=== PATIENT | female | born 1955 | race Caucasian/White ===

== ENCOUNTER 2021-07-24 21:11 | Inpatient (IN) ==
[2021-07-24] MEDS ORDERED: ALBUT/IPRATROP 3MG/0.5MG NEB 3 ML VIAL INH STA (21:31)
--- NOTE | 2021-07-24 21:38 | Emergency Department Note ---
Impression & Plan Hypoxia, SOB (shortness of breath), Hypothermia, Wheezing, Pneumonia, Influenza A ED Provider Note NAME: GARRICK HERNANDEZ AGE: 66 SEX: F : 1955 ARRIVES VIA: Ambulance INFORMANT: [Patient][ems] ED PROVIDER(S): [Cisco Osuna MD] CHIEF COMPLAINT: Short of breath HISTORY OF PRESENT ILLNESS: The patient is a 66-year-old female with lung disease and MS. She was brought by ambulance for an O2 saturation of 87%. She responded well to supplemental O2. The patient has been feeling short of breath for several days. She has had a slight cough. She felt much worse today. She has some occasional chest pain, nothing persisting. She has not noticed a fever. There has been no vomiting or diarrhea. The patient was diagnosed with influenza and pneumonia as an out patient. She states that she is on an antibiotic but does not remember the name. Patient does not use oxygen at home. She does have a nebulizer though. She states that she barely walks on her own as the MS has really taken her leg strength. She is cared for primarily by her . The patient is vaccinated for COVID-19 x3, she has had her influenza vaccination. REVIEW OF SYSTEMS: See HPI for pertinent positives and negatives. A total of ten systems were rev iewed and were otherwise negative. PMHx/PSHx: See Below SOCIAL HISTORY: See Below. PHYSICAL EXAM: GENERAL: Patient is in no acute distress. HEENT: No acute trauma, normocephalic atraumatic, mucous membranes dry, no nasal congestion, no scleral icterus. Hoarse voice. NECK: No stridor, no adenopathy, no meningismus, trachea is midline. LUNGS: Scattered wheezes bilaterally when listening anterior. No rhonchi. No respiratory distress. HEART: Without murmurs gallops or rubs, regular rate and rhythm. ABDOMEN: Soft, nontender, bowel sounds positive, no hernias, no peritonitis. Obese. EXTREMITIES: No cyanosis, moderate bilateral pedal edema. No obvious deformity to the upper or lower extremities. NEUROLOGIC: Oriented x 3, no acute motor or sensory deficits, no focal weakness. Poor historian. SKIN: Patient has an erythematous, flat, yeast appearing rash in the folds of her skin/pannus and in the groin. DIFFERENTIAL DIAGNOSIS: Reactive airway disease, pneumonia, influenza, COVID-19, RSV, pneumothorax, COPD, CHF, infection, UTI, failed outpatient treatment, cardiac ischemia, p ulmonary embolism, bronchitis, musculoskeletal, gastrointestinal, as well as other pathologies. EMERGENCY DEPARTMENT COURSE/PROCEDURES: ECG: Indication was weakness and shortness of breath. The ECG shows a normal sinus rhythm with a rate of 68. There is LVH present. There is no ST elevation, no PVCs. The QTC is 459. Continuous Cardiac Monitoring: An order was placed for continuous cardiac monitoring. The monitor shows a rate of 76 with normal sinus rhythm. Critical Care Note: I have personally spent 48 minutes of critical care time in the direct management of this patient. This includes bedside care, interpretation of diagnostic studies, and testing, discussion with consultants, patient, and family members, and other required patient management activities. This 48 minutes is in excess of all separately billable procedures. MEDICAL DECISION MAKING: There is a mild leukocytosis, this could be consistent with infection. There is a normal hemoglobin. Platelet count somewhat low at 107. No concerning coagulopathy. VBG does not show any significant acidosis or CO2 retention. No significant electrolyte abnormality or kidney failure. Lactic acid level is not elevated making severe sepsis less likely. No worrisome liver enzyme elevation. BNP was not elevated making CHF unlikely. COVID testing was negative. Influenza A testing was positive. RSV testing was negative. Chest film showed a potential left basilar infiltrate versus some atelectasis. No CHF. Urinalysis result is pending. The patient presents with hypoxia noted by EMS. She was short of breath. She has been on treatment as an outpatient for influenza A as well as what sounds like pneumonia. She is failing outpatient treatment. The patient was hypothermic upon presentation. Rectal temp was 32.1. She was placed on a Al hugger. She received 1.5 L of IV saline, 2 g of IV cefepime and a DuoNeb. The patient is in need of a hospital stay. She is hypoxic, hypotensive, dehydr ated. She is failing outpatient treatment for influenza A and what looks to be pneumonia. She is in no condition to be discharged home. I spoke with the patient and case management. The on-call hospitalist was consulted. Past Med/Surg History Medical History Multiple sclerosis Social History Smoking Status: Unknown if ever smoked Feels Safe at Home: Yes Allergies Allergies Allergy/AdvReac Type Severity Reaction Status Date / Time codeine AdvReac Mild NAUSEATED Verified 07/24/21 22:09 Home Meds Home Medications Medication Instructions Recorded Confirmed albuterol sulfate 2.5 mg INHALATION DIRECTED PRN 06/25/21 07/24/21 benazepril 40 mg tablet 40 mg PO DAILY 06/25/21 07/24/21 fluticasone 100 mcg-salmeterol 50 1 ea INHALATION BID 06/25/21 07/24/21 mcg/dose blistr powdr for inhalation (Bob Inhhayes) levothyroxine 25 mcg tablet 25 mcg PO DAILY 06/25/21 07/24/21 metformin 500 mg tablet 500 mg PO BID 06/25/21 07/24/21 omeprazole 20 mg capsule,delayed 20 mg PO DAILY 06/25/21 07/24/21 release amoxicillin 875 mg-potassium 1 tab PO BID 07/24/21 07/24/21 clavulanate 125 mg tablet ibuprofen 800 mg tablet 800 mg PO TID PRN 07/24/21 07/24/21 Results & Data (ED) Vital Signs Vital Signs - 24 hr 07/24/21 21:42 07/24/21 21:52 07/24/21 21:58 Temperature 32.3 C L 32.3 C L Temperature Source Oral Oral Pulse Rate 76 Pulse Rate [Apical] Respiratory Rate 17 Respiratory Effort / Characteristics Non-Labored Short of Breath SOB on Exertion Respiratory Depth Normal Blood Pressure 101/59 L Blood Pressure [Left Arm] Blood Pressure Mean 73 Blood Pressure Mean [Left Arm] Pulse Oximetry 91 Oxygen Delivery Method Room Air Room Air Sepsis Recent Fever Within 48 Hours No Sepsis New/Unexplained Change in Mental Status No Sepsis Action Taken by Nursing No Action Required 07/24/21 22:40 07/24/21 22:43 Temperature 32.1 C L Temperature Source Rectal Pulse Rate Pulse Rate [Apical] 76 Respiratory Rate 22 Respiratory Effort / Characteristics Respiratory Depth Blood Pressure Blood Pressure [Left Arm] 93/55 L Blood Pressure Mean Blood Pressure Mean [Left Arm] 67 Pulse Oximetry 93 Oxygen Delivery Method Room Air Sepsis Recent Fever Within 48 Hours Sepsis New/Unexplained Change in Mental Status Sepsis Action Taken by Shelter Medications Current Medication List: was personally reviewed by me Laboratory Data Attestation: I reviewed the patient's lab results. Result diagrams: 07/24/21 21:36 07/24/21 21:36 Lab Results 07/24/21 07/24/21 07/24/21 Range/Units 21:36 21:36 21:36 WBC 11.02 H (4.8-10.8) K/uL RBC 4.18 L (4.2-5.4) M/uL Hgb 13.4 (12.0-16.0) g/dL Hct 39.7 (37-47) % MCV 95.0 (80-100) fL MCH 32.1 (25-34) pg MCHC 33.8 (32-36) g/dL RDW Std Deviation 53.5 H (36.4-46.3) fL RDW Coeff of Kaia 15.8 H (11.5-14.5) % Plt Count 107 L (130-400) K/uL MPV 12.0 H (7.4-10.4) fL Immature Gran % (Auto) 0.3 % Neut % (Auto) 79.6 % Lymph % (Auto) 10.9 % [place] % (Auto) 7.7 % Eos % (Auto) 1.4 % Baso % (Auto) 0.1 % Neut # (Auto) 8.78 H (1.4-6.5) K/uL Lymph # (Auto) 1.20 (1.2-3.4) K/uL [place] # (Auto) 0.85 H (0.11-0.59) K/uL Eos # (Auto) 0.15 (0-0.5) K/uL Baso # (Auto) 0.01 (0-0.2) K/uL Immature Gran # (Auto) 0.03 H (0.00-0.02) K/uL Platelet Estimate Decreased L (Normal) PT 10.9 (9.0-12.0) Seconds INR 1.1 (0.9-1.1) APTT 33.1 H (21.0-31.0) Seconds PTT Ratio 1.3 VBG pH (7.36-7.41) VBG pCO2 (38-50) mmHg VBG pO2 mmHg VBG HCO3 mmol/L VBG O2 Saturation % VBG Base Excess mEq/L Barometric Pressure mm/Hg Sodium 145 (136-145) mmol/L Potassium 4.1 (3.5-5.1) mmol/L Chloride 112 H (98-107) mmol/L Carbon Dioxide 22 (21-32) mmol/L Anion Gap 11 (3-11) BUN 31 H (6-23) mg/dl Creatinine 0.80 (0.6-1.2) mg/dl Est Cr Clr Drug Dosing 86.9 ml/min Est GFR ( Amer) 88.4 ml/min Est GFR (Non-Af Amer) 76.3 ml/min BUN/Creatinine Ratio 38.8 H (10-20) Glucose 121 H (70-99) mg/dl Lactate (0.4-2.0) mmol/L Calcium 10.0 (8.5-10.1) mg/dl Magnesium 1.8 (1.7-2.4) mg/dl Total Bilirubin 0.3 (0.2-1.0) mg/dl AST 30 (13-39) U/L ALT 32 (7-52) U/L Alkaline Phosphatase 131 H (34-104) U/L Troponin I < 0.03 (0-0.04) ng/ml B-Natriuretic Peptide (0-100) pg/ml Total Protein 7.0 (6.0-8.3) gm/dl Albumin 3.3 L (3.4-5.0) gm/dl Globulin 3.7 (2.5-4.0) gm/dl Albumin/Globulin Ratio 0.9 (0.9-2) SARS-CoV-2 (PCR) (Negative) Influenza Type A (PCR) (Neg) Influenza Type B (PCR) (Neg) RSV (RT-PCR) (Neg) 07/24/21 07/24/21 07/24/21 Range/Units 21:36 21:36 21:55 WBC (4.8-10.8) K/uL RBC (4.2-5.4) M/uL Hgb (12.0-16.0) g/dL Hct (37-47) % MCV (80-100) fL MCH (25-34) pg MCHC (32-36) g/dL RDW Std Deviation (36.4-46.3) fL RDW Coeff of Kaia (11.5-14.5) % Plt Count (130-400) K/uL MPV (7.4-10.4) fL Immature Gran % (Auto) % Neut % (Auto) % Lymph % (Auto) % [place] % (Auto) % Eos % (Auto) % Baso % (Auto) % Neut # (Auto) (1.4-6.5) K/uL Lymph # (Auto) (1.2-3.4) K/uL [place] # (Auto) (0.11-0.59) K/uL Eos # (Auto) (0-0.5) K/uL Baso # (Auto) (0-0.2) K/uL Immature Gran # (Auto) (0.00-0.02) K/uL Platelet Estimate (Normal) PT (9.0-12.0) Seconds INR (0.9-1.1) APTT (21.0-31.0) Seconds PTT Ratio VBG pH 7.34 L (7.36-7.41) VBG pCO2 46 (38-50) mmHg VBG pO2 52 mmHg VBG HCO3 24 mmol/L VBG O2 Saturation 86.6 % VBG Base Excess -2.1 mEq/L Barometric Pressure 739.8 mm/Hg Sodium (136-145) mmol/L Potassium (3.5-5.1) mmol/L Chloride (98-107) mmol/L Carbon Dioxide (21-32) mmol/L Anion Gap (3-11) BUN (6-23) mg/dl Creatinine (0.6-1.2) mg/dl Est Cr Clr Drug Dosing ml/min Est GFR ( Amer) ml/min Est GFR (Non-Af Amer) ml/min BUN/Creatinine Ratio (10-20) Glucose (70-99) mg/dl Lactate 1.3 (0.4-2.0) mmol/L Calcium (8.5-10.1) mg/dl Magnesium (1.7-2.4) mg/dl Total Bilirubin (0.2-1.0) mg/dl AST (13-39) U/L ALT (7-52) U/L Alkaline Phosphatase (34-104) U/L Troponin I (0-0.04) ng/ml B-Natriuretic Peptide 30 (0-100) pg/ml Total Protein (6.0-8.3) gm/dl Albumin (3.4-5.0) gm/dl Globulin (2.5-4.0) gm/dl Albumin/Globulin Ratio (0.9-2) SARS-CoV-2 (PCR) (Negative) Influenza Type A (PCR) (Neg) Influenza Type B (PCR) (Neg) RSV (RT-PCR) (Neg) 07/24/21 Range/Units 22:37 WBC (4.8-10.8) K/uL RBC (4.2-5.4) M/uL Hgb (12.0-16.0) g/dL Hct (37-47) % MCV (80-100) fL MCH (25-34) pg MCHC (32-36) g/dL RDW Std Deviation (36.4-46.3) fL RDW Coeff of Kaia (11.5-14.5) % Plt Count (130-400) K/uL MPV (7.4-10.4) fL Immature Gran % (Auto) % Neut % (Auto) % Lymph % (Auto) % [place] % (Auto) % Eos % (Auto) % Baso % (Auto) % Neut # (Auto) (1.4-6.5) K/uL Lymph # (Auto) (1.2-3.4) K/uL [place] # (Auto) (0.11-0.59) K/uL Eos # (Auto) (0-0.5) K/uL Baso # (Auto) (0-0.2) K/uL Immature Gran # (Auto) (0.00-0.02) K/uL Platelet Estimate (Normal) PT (9.0-12.0) Seconds INR (0.9-1.1) APTT (21.0-31.0) Seconds PTT Ratio VBG pH (7.36-7.41) VBG pCO2 (38-50) mmHg VBG pO2 mmHg VBG HCO3 mmol/L VBG O2 Saturation % VBG Base Excess mEq/L Barometric Pressure mm/Hg Sodium (136-145) mmol/L Potassium (3.5-5.1) mmol/L Chloride (98-107) mmol/L Carbon Dioxide (21-32) mmol/L Anion Gap (3-11) BUN (6-23) mg/dl Creatinine (0.6-1.2) mg/dl Est Cr Clr Drug Dosing ml/min Est GFR ( Amer) ml/min Est GFR (Non-Af Amer) ml/min BUN/Creatinine Ratio (10-20) Glucose (70-99) mg/dl Lactate (0.4-2.0) mmol/L Calcium (8.5-10.1) mg/dl Magnesium (1.7-2.4) mg/dl Total Bilirubin (0.2-1.0) mg/dl AST (13-39) U/L ALT (7-52) U/L Alkaline Phosphatase (34-104) U/L Troponin I (0-0.04) ng/ml B-Natriuretic Peptide (0-100) pg/ml Total Protein (6.0-8.3) gm/dl Albumin (3.4-5.0) gm/dl Globulin (2.5-4.0) gm/dl Albumin/Globulin Ratio (0.9-2) SARS-CoV-2 (PCR) NEGATIVE (Negative) Influenza Type A (PCR) Positive A* (Neg) Influenza Type B (PCR) Negative (Neg) RSV (RT-PCR) Negative (Neg) Administered Medications Discontinued Medications Albuterol (Albut/Ipratrop 3mg/0.5mg Neb 3 Ml Vial) 3 ml INH NOW STA Stop: 07/24/21 21:32 Last Admin: 07/24/21 22:05 Dose: 3 ml Documented by: [id number] Cefepime HCl (Maxipime) 2,000 mg in 20 mls @ 5 mls/min IV NOW STA; Protocol Stop: 07/24/21 21:47 Last Admin: 07/24/21 22:05 Dose: 5 mls/min Documented by: [id number] Sodium Chloride (Nss 1000ml) 500 mls @ 999 mls/hr IV .Q31M ONE Stop: 07/24/21 22:15 Last Infusion: 07/24/21 22:43 Dose: 0 mls/hr Documented by: [id number] Admin: 07/24/21 22:05 Dose: 999 mls/hr Documented by: [id number] Imaging Data Attestation: I personally reviewed and interpreted this imaging study as follows: My Impression: Chest x-ray: There is no CHF or pneumothorax. There is a potential forming left base infiltrate versus some atelectasis. Discharge Plan Visit Data Chief Complaint: Shortness of Breath/Dyspnea Stated Complaint: SOB ED Provider: Cisco Osuna Discharge Problem: Hypoxia, SOB (shortness of breath), Hypothermia, Wheezing, Pneumonia, Influenza A Patient Disposition: Admitted As Inpatient Condition: Fair Forms Stand Alone Forms: My [facility] Prescriptions Prescriptions: No Action metformin 500 mg tablet 500 mg PO BID RF: 0 levothyroxine 25 mcg tablet 25 mcg PO DAILY RF: 0 omeprazole 20 mg capsule,delayed release(DR/EC) 20 mg PO DAILY RF: 0 fluticasone propion-salmeterol [Wixela Inhub] 100-50 mcg/dose blister with device 1 ea INHALATION BID RF: 0 benazepril 40 mg tablet 40 mg PO DAILY RF: 0 albuterol sulfate 2.5 mg /3 mL (0.083 %) solution for nebulization 2.5 mg inhalation DIRECTED PRN (Reason: Shortness Of Breath Or Wheezing) RF: 0 ibuprofen 800 mg tablet 800 mg PO TID PRN (Reason: Pain) RF: 0 amoxicillin-pot clavulanate 875-125 mg tablet 1 tab PO BID RF: 0 Referrals Referrals: Vernon Sanz MD [Primary Care Provider] -
[2021-07-24] MEDS ORDERED: CEFEPIME 2,000 MG/20 ML VIAL IV STA (21:44)
[2021-07-24] MEDS ORDERED: SODIUM CHLORIDE 0.9% 1000ML 500 ML IV ONE ×3 (21:45→23:47)
[2021-07-24 21:52] LABS: Base Excess VBG -2.1 mEq/L; Oxygen Saturation VBG 86.6 %; pH VBG 7.34 (7.36-7.41)
[2021-07-24 22:06] LABS: INR 1.1 (0.9-1.1); Partial Thromboplastin Ratio 1.3; Partial Thromboplastin Time 33.1 Seconds (21.0-31.0); Prothrombin Time 10.9 Seconds (9.0-12.0)
[2021-07-24 22:13] LABS: Troponin I < 0.03 ng/ml (0-0.04)
[2021-07-24 22:21] LABS: Hematocrit (blood only) 39.7 % (37-47); Hemoglobin 13.4 g/dL (12.0-16.0); Mean Corpuscular Hemoglobin 32.1 pg (25-34); Mean Corpuscular Hgb Conc 33.8 g/dL (32-36); RDW Coefficient of Variation 15.8 % (11.5-14.5); RDW Standard Deviation 53.5 fL (36.4-46.3); Red Blood Count 4.18 M/uL (4.2-5.4); White Blood Count 11.02 K/uL (4.8-10.8)
[2021-07-24 22:23] LABS: Basophils # (auto) 0.01 K/uL (0-0.2); Basophils % (auto) 0.1 %; Eosinophils # (auto) 0.15 K/uL (0-0.5); Eosinophils % (auto) 1.4 %; Immature Granulocytes # (auto) 0.03 K/uL (0.00-0.02); Immature Granulocytes % (auto) 0.3 %; Lymphocytes % (auto) 10.9 %; Monocytes # (auto) 0.85 K/uL (0.11-0.59); Monocytes % (auto) 7.7 %; Neutrophils # (auto) 8.78 K/uL (1.4-6.5); Neutrophils % (auto) 79.6 %; Platelet Count 107 K/uL (130-400); Platelet Estimate Decreased (Normal)
[2021-07-24 22:43] LABS: Alanine Aminotransferase 32 U/L (7-52); Albumin Globulin Ratio 0.9 (0.9-2); Albumin Level 3.3 gm/dl (3.4-5.0); Alkaline Phosphatase 131 U/L (34-104); Anion Gap 11 (3-11); Aspartate Aminotransferase 30 U/L (13-39); BUN Creatinine Ratio 38.8 (10-20); Bilirubin,Total 0.3 mg/dl (0.2-1.0); Blood Urea Nitrogen 31 mg/dl (6-23); Carbon Dioxide 22 mmol/L (21-32); Chloride 112 mmol/L (98-107); Creatinine Clr Calc Pharmacy 86.9 ml/min; Est GFR (African American) 88.4 ml/min; Est GFR (Non-African American) 76.3 ml/min; Globulin 3.7 gm/dl (2.5-4.0); Glucose 121 mg/dl (70-99); Magnesium 1.8 mg/dl (1.7-2.4); Potassium 4.1 mmol/L (3.5-5.1); Sodium 145 mmol/L (136-145)
[2021-07-24 23:26] LABS: Influenza B virus by PCR Negative (Neg); RSV by PCR Negative (Neg); SARS CoV2 RNA(COVID-19) InHosp NEGATIVE (Negative)
[2021-07-24 23:30] LABS: Influenza A virus by PCR Positive (Neg)
[2021-07-25 01:06] LABS: Appearance Urine Cloudy (Clear); Bacteria Urine Automated Negative (Negative); Blood Urine Negative (Negative); Color Urine Dark Yellow; Epithelial Cell Urine Auto >30 /lpf (0-5); Glucose Urine UA Negative (Negative); Ketones Urine 1+ (Negative); Leukocyte Esterase Urine 1+ (Negative); Nitrite Urine Negative (Negative); Protein Urine 1+ (Negative); Specific Gravity Urine 1.035 (1.000-1.030); Urobilinogen Urine Negative (Negative); WBC Urine Automated >30 /hpf (0-5)
[2021-07-25 01:12] LABS: Bilirubin Urine 1+ (Negative)
--- NOTE | 2021-07-25 01:22 | History & Physical Report ---
Date of Service July 25, 2021 Assessment & Plan (1) SOB (shortness of breath): Plan: 66yo female with history of MS, HTN, DM and Asthma presenting with several weeks of progressive dyspnea, acutely worsened today. Patient hypoxic by EMS to 87% on room air which improved with supplemental O2. Coarse breath sounds with end- expiratory wheezing. Labs are significant for POSITIVE INFLUENZA A Leukocytosis with WBC=11.02, neutrophil predominant with bands Possible PNA - patient endorses productive cough, night sweats -Admit to PCU -Supplemental O2 as needed to maintain SpO2 >92% -Check sputum culture -Follow cultures sent from ER -Empiric Cefepime and Azithromycin -Check MRSA nares (2) Hypothermia: Plan: Patient hypothermic on arrival to 32.1. She denies exposure. Warming blanket placed. ?sepsis -Follow cultures as above -Check TSH -Check random cortisol -Continue warming blanket -Monitor temperature (3) Fungal dermatitis: Plan: Suspect fungal dermatitis contributing to redness/irritation of skin. -Nystatin cream TID -Monitor redness for improvement -Turn/position q 2 hours -?Cellulitis as well - Daptomycin ordered empirically (4) Asthma: Plan: Patient with diffuse wheezing, c/p SOB. She has a nebulizer at home, no home O2 -Albuterol neb q 2 hours PRN -Supplemental O2 as above -Prednisone taper 40mg (5) Hypertension: Plan: Borderline low blood pressure at present -Hold Benazepril -Continue to monitor (6) Diabetes: Plan: Blood sugar 121 -Hold Metformin -ISS - goal blood sugar 100 - 140 (7) Influenza A: Plan: Uncertain when diagnosed -Monitor, supportive care. Plan: F/E/N - received 1500mL IVF in ER, encourage PO intake, monitor electrolytes, CC diet as tolerated Ppx - Lovenox 40mg BID dosed for BMI Code - Full per discussion with patient Dispo - Admit to PCU History of Present Illness Chief Complaint: SOB Primary Care Provider: Vernon Sanz MD Dali Smyth is a 66yo female with history of DM, HTN, Asthma and MS presenting with hypoxic respiratory failure. Patient is a poor historian and is unclear of many details of events prior to arrival. She reports ongoing shortness of breath since [place]. Progressive in nature. She has had some chest tightness and wheeze as well. She has a cough productive for yellow sputum and endorses occasional night sweats since [place] as well. She denies fever, chills, abdominal pain, nausea, vomiting, diarrhea or constipation. She states she is able to feel when her bladder is full and is able to empty without difficulty. Appetite and PO intake has been adequate and BMs have been normal. She reports compliance with her medications. Patient presently living at home with her . She is largely wheelchair and bedbound secondary to MS. Patient was recently diagnosed with Influenza A. She is uncertain exactly when - possibly one week ago. She was also recently started on Augmentin. EMS was contacted today for progressive SOB. By report, patient saturating 87% on room air upon EMS arrival. In the ER patient found to be hypothermic with T=32.3. Warming blanket placed. O2 saturations of appx 88% on NC, declined when patient fell asleep. Oxymask placed and patient repositioned in bed. Presently 97% on 4L oxymask. No additional complaints. ER Course: Cefepime, Albuterol neb, NSS x 1500mL Patient is fully vaccinated against Covid-19 as well as influenza Allergies Allergy/AdvReac Type Severity Reaction Status Date / Time codeine AdvReac Mild NAUSEATED Verified 07/24/21 22:09 Home Medications Medication Instructions Recorded Confirmed Type albuterol sulfate 2.5 mg INHALATION DIRECTED PRN 06/25/21 07/24/21 History benazepril 40 mg tablet 40 mg PO DAILY 06/25/21 07/24/21 History fluticasone 100 mcg-salmeterol 50 1 ea INHALATION BID 06/25/21 07/24/21 History mcg/dose blistr powdr for inhalation (Wixela Inhub) levothyroxine 25 mcg tablet 25 mcg PO DAILY 06/25/21 07/24/21 History metformin 500 mg tablet 500 mg PO BID 06/25/21 07/24/21 History omeprazole 20 mg capsule,delayed 20 mg PO DAILY 06/25/21 07/24/21 History release amoxicillin 875 mg-potassium 1 tab PO BID 07/24/21 07/24/21 History clavulanate 125 mg tablet ibuprofen 800 mg tablet 800 mg PO TID PRN 07/24/21 07/24/21 History Past Med/Surg History Medical History (Updated 07/25/21 @ 02:28 by Veronica Butterfield DO) Asthma Diabetes Hypertension Multiple sclerosis Family History (Updated 07/25/21 @ 02:11 by Veronica Butterfield DO) Other Family history non-contributory Social History Smoking Status: Unknown if ever smoked Feels Safe at Home: Yes Review of Systems Review of Systems: All systems reviewed & are unremarkable except as noted in HPI & below Physical Exam Physical Exam: General: patient resting comfortably in bed, ill in appearance, poorly kempt Skin: warm, dry, well demarcated erythematous rash present on groin, pannus, anterior thighs HEENT: NC/AT, PERRL, EOMI, anicteric sclera, conjunctiva without injection, external ear normal to inspection and nontender, nares patent, dry mucus membran es, dentition intact, no oropharyngeal lesions, neck supple, trachea midline, no LAD, no thyromegaly, no JVD Heart: +S1/S2, regular, no m/r/g Lungs: equal air entry bilaterally, coarse inspiratory breath sounds with diffuse end-expiratory wheezing Abd: +BS, soft, NT/ND, no masses/organomegaly/ascites Ext: warm, 2+ pulses in UE/LE bilaterally, no clubbing/cyanosis, +pedal edema Neuro: nonfocal, patient AA&O x 4, speech intact, no facial droop, moving all extremities on command with equal strength 5/5 Results & Data Results & Data ([facility]) Vital Signs (Past 12 Hours) Vital Signs Temp Pulse Pulse Resp BP BP Pulse Ox 07/24/21 22:43 76 22 93/55 L 93 07/24/21 22:40 32.1 C L 07/24/21 21:58 32.3 C L 07/24/21 21:42 32.3 C L 76 17 101/59 L 91 Laboratory Results Laboratory Results WBC 11.02 K/uL (4.8-10.8) H 07/24/21 21:36 RBC 4.18 M/uL (4.2-5.4) L 07/24/21 21:36 Hgb 13.4 g/dL (12.0-16.0) 07/24/21 21:36 Hct 39.7 % (37-47) 07/24/21 21:36 MCV 95.0 fL (80-100) 07/24/21 21:36 MCH 32.1 pg (25-34) 07/24/21 21:36 MCHC 33.8 g/dL (32-36) 07/24/21 21:36 RDW Std Deviation 53.5 fL (36.4-46.3) H 07/24/21 21:36 RDW Coeff of Kaia 15.8 % (11.5-14.5) H 07/24/21 21:36 Plt Count 107 K/uL (130-400) L 07/24/21 21:36 MPV 12.0 fL (7.4-10.4) H 07/24/21 21:36 Immature Gran % (Auto) 0.3 % 07/24/21 21:36 Neut % (Auto) 79.6 % 07/24/21 21:36 Lymph % (Auto) 10.9 % 07/24/21 21:36 [place] % (Auto) 7.7 % 07/24/21 21:36 Eos % (Auto) 1.4 % 07/24/21 21:36 Baso % (Auto) 0.1 % 07/24/21 21:36 Neut # (Auto) 8.78 K/uL (1.4-6.5) H 07/24/21 21:36 Lymph # (Auto) 1.20 K/uL (1.2-3.4) 07/24/21 21:36 [place] # (Auto) 0.85 K/uL (0.11-0.59) H 07/24/21 21:36 Eos # (Auto) 0.15 K/uL (0-0.5) 07/24/21 21:36 Baso # (Auto) 0.01 K/uL (0-0.2) 07/24/21 21:36 Immature Gran # (Auto) 0.03 K/uL (0.00-0.02) H 07/24/21 21:36 Platelet Estimate Decreased (Normal) L 07/24/21 21:36 PT 10.9 Seconds (9.0-12.0) 07/24/21 21:36 INR 1.1 (0.9-1.1) 07/24/21 21:36 APTT 33.1 Seconds (21.0-31.0) H 07/24/21 21:36 PTT Ratio 1.3 07/24/21 21:36 VBG pH 7.34 (7.36-7.41) L 07/24/21 21:36 VBG pCO2 46 mmHg (38-50) 07/24/21 21:36 VBG pO2 52 mmHg 07/24/21 21:36 VBG HCO3 24 mmol/L 07/24/21 21:36 VBG O2 Saturation 86.6 % 07/24/21 21:36 VBG Base Excess -2.1 mEq/L 07/24/21 21:36 Barometric Pressure 739.8 mm/Hg 07/24/21 21:36 Sodium 145 mmol/L (136-145) 07/24/21 21:36 Potassium 4.1 mmol/L (3.5-5.1) 07/24/21 21:36 Chloride 112 mmol/L (98-107) H 07/24/21 21:36 Carbon Dioxide 22 mmol/L (21-32) 07/24/21 21:36 Anion Gap 11 (3-11) 07/24/21 21:36 BUN 31 mg/dl (6-23) H 07/24/21 21:36 Creatinine 0.80 mg/dl (0.6-1.2) 07/24/21 21:36 Est Cr Clr Drug Dosing 86.9 ml/min 07/24/21 21:36 Est GFR ( Amer) 88.4 ml/min 07/24/21 21:36 Est GFR (Non-Af Amer) 76.3 ml/min 07/24/21 21:36 BUN/Creatinine Ratio 38.8 (10-20) H 07/24/21 21:36 Glucose 121 mg/dl (70-99) H 07/24/21 21:36 Lactate 1.3 mmol/L (0.4-2.0) 07/24/21 21:36 Calcium 10.0 mg/dl (8.5-10.1) 07/24/21 21:36 Magnesium 1.8 mg/dl (1.7-2.4) 07/24/21 21:36 Total Bilirubin 0.3 mg/dl (0.2-1.0) 07/24/21 21:36 AST 30 U/L (13-39) 07/24/21 21:36 ALT 32 U/L (7-52) 07/24/21 21:36 Alkaline Phosphatase 131 U/L (34-104) H 07/24/21 21:36 Troponin I < 0.03 ng/ml (0-0.04) 07/24/21 21:36 B-Natriuretic Peptide 30 pg/ml (0-100) 07/24/21 21:55 Total Protein 7.0 gm/dl (6.0-8.3) 07/24/21 21:36 Albumin 3.3 gm/dl (3.4-5.0) L 07/24/21 21:36 Globulin 3.7 gm/dl (2.5-4.0) 07/24/21 21:36 Albumin/Globulin Ratio 0.9 (0.9-2) 07/24/21 21:36 Urine Color Dark Yellow 07/24/21 23:45 Urine Appearance Cloudy (Clear) A 07/24/21 23:45 Urine pH 5.0 (4.5-7.5) 07/24/21 23:45 Ur Specific Boyce 1.035 (1.000-1.030) H 07/24/21 23:45 Urine Protein 1+ (Negative) H 07/24/21 23:45 Urine Glucose (UA) Negative (Negative) 07/24/21 23:45 Urine Ketones 1+ (Negative) H 07/24/21 23:45 Urine Blood Negative (Negative) 07/24/21 23:45 Urine Nitrite Negative (Negative) 07/24/21 23:45 Urine Bilirubin 1+ (Negative) H 07/24/21 23:45 Urine Urobilinogen Negative (Negative) 07/24/21 23:45 Ur Leukocyte Esterase 1+ (Negative) H 07/24/21 23:45 Urine WBC (Auto) >30 /hpf (0-5) H 07/24/21 23:45 Urine RBC (Auto) 5-10 /hpf (0-4) H 07/24/21 23:45 U Hyaline Cast (Auto) 10-30 /lpf (0-5) H 07/24/21 23:45 U Epithel Cells (Auto) >30 /lpf (0-5) H 07/24/21 23:45 Urine Bacteria (Auto) Negative (Negative) 07/24/21 23:45 Ur Renal Epithelial Cell Not Reportable 07/24/21 23:45 Urine Crystals Not Reportable 07/24/21 23:45 Calcium Oxalate Crystal Present (None Prsent) A 07/24/21 23:45 Urine Yeast Budding (None Prsent) A 07/24/21 23:45 SARS-CoV-2 (PCR) NEGATIVE (Negative) 07/24/21 22:37 Influenza Type A (PCR) Positive (Neg) A* 07/24/21 22:37 Influenza Type B (PCR) Negative (Neg) 07/24/21 22:37 RSV (RT-PCR) Negative (Neg) 07/24/21 22:37 Diagnostic Findings CXR with cardiomegaly, no obvious infiltrate - possible increased density in LLL No PTX ECG Additional Comments: EKG with NSR at 68, Code Status & VTE Plan VTE Prophylaxis Plan VTE Prophylaxis will be ordered: Yes PG Care Time/CCT Total # of Minutes Spent Total Time Spent with Patient: Total time spent is greater than 50% in coordination of care (as documented) at patient's floor/unit and/or counseling patient: Coding Level of Care Code 97520 Initial Inpt Care Lvl 3 Diagnoses Asthma J45.909 Hypertension I10 Diabetes E11.9 SOB (shortness of breath) R06.02 Influenza A J10.1 Hypothermia T68.XXXA Encounter type: initial encounter Fungal dermatitis B36.9 (1) Hypothermia Encounter type: initial encounter Qualified Code(s): T68.XXXA - Hypothermia, initial encounter
[2021-07-25 01:26] LABS: Calcium Oxalate Crystals Urine Present (None Prsent)
[2021-07-25] MEDS ORDERED: GLUCOSE 40% GEL 15 GM TUBE PO PRN (03:58)
[2021-07-25] MEDS ORDERED: CARBOHYDRATES FOR HYPOGLYCEMIA PO PRN (03:58)
[2021-07-25] MEDS ORDERED: ALBUTEROL 0.5% NEB SOLN 2.5 MG/0.5 ML VIAL NEB PRN (03:58)
[2021-07-25] MEDS ORDERED: GLUCAGON FOR INJ 1 MG VIAL SQ PRN (03:58)
[2021-07-25] MEDS ORDERED: ACETAMINOPHEN 325 MG TAB PO PRN (03:58)
[2021-07-25] MEDS ORDERED: DEXTROSE 50% 50 ML SYRINGE IV PRN (03:58)
[2021-07-25] MEDS ORDERED: GLUCOSE 10 TABS/TUBE PO PRN (03:58)
[2021-07-25] MEDS ORDERED: AZITHROMYCIN 500 MG in DEXTROSE 5% 250 ML IV ONE (04:30)
[2021-07-25] MEDS: DAPTOmycin 475 MG in SYRINGE 0 ML IV SCH (04:36)
[2021-07-25 04:52] LABS: Phosphorus 3.2 mg/dl (2.5-4.9)
[2021-07-25 05:28] LABS: Thyroid Stimulating Hormone 6.045 uIu/ml (0.300-4.500)
[2021-07-25] MEDS: ENOXAPARIN INJ 40 MG/0.4 ML SYR SQ SCH ×2 (06:43→23:35)
[2021-07-25] MEDS: LEVOTHYROXINE SODIUM 25 MCG TABLET PO SCH (06:43)
--- NOTE | 2021-07-25 07:10 | XRay Report ---
XR chest 1V portable CLINICAL HISTORY: SOB. COMPARISON STUDY: 07/10/2021 TECHNIQUE: 1 view of the chest FINDINGS: Single frontal view of the chest demonstrates the heart size to be at the upper limits of normal to m ildly enlarged. There is a decreased inspiratory effort with elevation of the hemidiaphragms and [place] of the bronchovascular markings at the lung bases and centrally. The lungs are clear of alveolar opacities. There is no evidence for pleural effusion. There is no evidence for vascular congestion. There is no acute osseous pathology. IMPRESSION: There is a decreased inspiratory effort with otherwise no acute chest disease. ACT 112: Negative or not required by law. Electronically signed by: Mode Joshi M.D. 07/25/2021 7:09 AM
[2021-07-25] MEDS ORDERED: SODIUM CHLORIDE 0.9% 1000ML 500 ML IV ONE (07:51)
[2021-07-25] MEDS ORDERED: ALBUTEROL 0.5% NEB SOLN 2.5 MG/0.5 ML VIAL NEB SCH (08:00)
--- NOTE | 2021-07-25 08:14 | Electrocardiogram Report ---
Test Reason : Blood Pressure : / mmHG Vent. Rate : 068 BPM Atrial Rate : 068 BPM P-R Int : 202 ms QRS Dur : 096 ms QT Int : 432 ms P-R-T Axes : 027 -18 -13 degrees QTc Int : 459 ms Normal sinus rhythm Moderate voltage criteria for LVH, may be normal variant Nonspecific T wave abnormality Inferior leads Borderline ECG When compared with ECG of 30-OCT-2010 12:04, Nonspecific T wave abnormality now evident in Inferior leads T wave amplitude has decreased in Anterolateral leads Confirmed by Viral Orlando ([id number]) on 07/25/2021 8:14:22 AM Referred By: REFERRED SELF Confirmed By:Viral Orlando
[2021-07-25] MEDS: INSULIN ASPART PER UNIT SC SCH ×3 (08:20→17:05)
--- NOTE | 2021-07-25 08:33 | History & Physical Bridge Note ---
Date of Service July 25, 2021 History & Physical Bridge Note I have examined the patient, reviewed the History & Physical and in the interval since the performance of the History & Physical I have noted the following changes of clinical significance: Early this AM, I was called down to see the pt for hypotension. Her BP was in the 70-80s systolic. She was very lethargic and only answered a few of my questions with simple answers. She did admit to being short of breath. She told me that blood pressures at home are usually high and she takes medication for it. She was able to follow some very simple commands. I gave her 1.5 L bolus of LR and blood pressures came up to 100 systolic. I checked labs and she continued on oxygen at 4 L oxygen mask. She was still hypothermic and I requested that the Al hugger be placed back on her. Her magnesium was replaced. Later in the afternoon, her blood pressure dropped down into the 80s systolic again. When I came to see her, she was even more lethargic than previous and was unresponsive to loud verbal stimulus, sternal rub, and pushing a pen into h er toenails. She had repeat labs and ABG and did not flinch for any of the needlesticks. Her blood pressure did come up again with a 500 mL bolus of LR, however she then was requiring 5 L of O2 via oxygen mask. I discussed her care with her at the bedside in the morning he reported that he would want all aggressive measures done. He reports that at baseline, her mentation is perfectly normal. 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 From a physical aspect, he does assist her with standing to turn and pivot from recliner chair to her wheelchair each day. She can also then use grab rails in the shower to stand from her wheelchair and sit down in the shower to bathe herself. He reports she typically has lower extremity swelling similar to how she is here. Vitals reviewed-hypotensive, sinus tachycardia, hypothermic Gen: Obtunded, morbidly obese HEENT: Anicteric sclerae, PERRL CV: Tachycardic, regular rhythm, no mgr nl S1S2 Pulm: Diffuse rhonchi and expiratory wheezing, breathing slightly labored with mild tachypnea Abd: +BS soft NT with large ventral hernia on examination, with incisional scar on the right abdomen Ext: 3+ pitting edema of the legs and feet bilaterally Skin: Very large area of erythema with satellite lesions underneath her large abdominal pannus and upper inner thighs and suprapubic region Neuro: Initially able to open eyes on command but fell back asleep, initially was able to wiggle both feet on command, on repeat examination, completely obtunded and not responding to pain, loud verbal stimulus Labs and rads reviewed ECG reviewed 66-year-old female with a history of MS, hypertension, DM 2, asthma, hypothyroidism, and GERD, here with sepsis with shock, hypothermia, influenza A, acute respiratory failure with hypoxia, and profound encephalopathy Encephalopathy is most likely secondary to acute infectious illness and septic shock She is without hypercapnia, ammonia level normal, TSH only mildly elevated at 6, no lactic acidosis CT head negative CT angiogram chest negative for central PE, but with pneumonia versus atelectasis bilaterally Consideration to be made for some sort of neurological dysfunction given underlying MS-we will consult neurology Consideration made for transfer to ICU, but her blood pressure did respond to crystalloid boluses again in the afternoon-no need for vasopressors at this time -Check MRI brain for stroke -Maintain maintenance fluids -Lyme panel, anaplasmosis, and start doxycycline empirically -Discontinue azithromycin in favor of doxycycline -Continue broad-spectrum antibiotics with cefepime, doxycycline both for pneumonia and possible tickborne illness. Continue daptomycin in case of secondary cellulitis at the site of her Jazzmine intertrigo -Add on caspofungin in case of fungemia given her severe Jazzmine intertrigo -Make albuterol nebulizers every 6 hours scheduled for wheezing and hypoxia -Start CPAP continuously to help open up areas of atelectasis seen on CT chest -Change prednisone to IV Solu-Medrol 60 mg every 8 hours -Replace IV magnesium Discussed her care with the [employer] who will follow-up on the brain MRI when available and keep a close eye on her mentation and blood pressures
[2021-07-25] MEDS: ALBUTEROL 0.083% NEBU SOLN 3 ML VIAL NEB SCH ×3 (08:40→20:57)
[2021-07-25] MEDS: LACTATED RINGER'S 1,000 ML IV SCH ×3 (08:51→20:13)
[2021-07-25 08:56] LABS: Allen Test Pos (Pos); Base Excess ABG -2.9 mEq/L (-9-1.8); HCO3 ABG 23 mmol/L (19-24); PCO2 ABG 41 mmHg (35-46); PO2 ABG 97 mmHg (80-95); pH ABG 7.35 (7.35-7.45)
[2021-07-25] MEDS ORDERED: FAMOTIDINE 40 MG TABLET PO SCH (09:00)
[2021-07-25] MEDS ORDERED: predniSONE 10 MG TABLET PO SCH (09:00)
[2021-07-25] MEDS ORDERED: NYSTATIN OINT 15 GM TUBE EXT SCH (09:00)
[2021-07-25] MEDS ORDERED: CEFEPIME 2,000 MG/20 ML VIAL ONE (09:12)
[2021-07-25] MEDS: FAMOTIDINE 20 MG in SYRINGE 3 ML IV SCH ×2 (09:16→22:02)
[2021-07-25] MEDS: CEFEPIME 2,000 MG in SYRINGE 0 ML IV SCH ×2 (09:16→22:02)
[2021-07-25] MEDS: methylPREDNISolone 60 MG in SYRINGE 0 ML IV SCH ×3 (09:17→23:36)
[2021-07-25 09:29] LABS: Basophils # (auto) 0.01 K/uL (0-0.2); Basophils % (auto) 0.1 %; Eosinophils # (auto) 0.11 K/uL (0-0.5); Hematocrit (blood only) 35.7 % (37-47); Hemoglobin 11.9 g/dL (12.0-16.0); Immature Granulocytes # (auto) 0.04 K/uL (0.00-0.02); Immature Granulocytes % (auto) 0.4 %; Lymphocytes # (auto) 0.92 K/uL (1.2-3.4); Lymphocytes % (auto) 8.2 %; Mean Corpuscular Hemoglobin 31.8 pg (25-34); Mean Corpuscular Hgb Conc 33.3 g/dL (32-36); Mean Corpuscular Volume 95.5 fL (80-100); Mean Platelet Volume 12.1 fL (7.4-10.4); Monocytes # (auto) 0.79 K/uL (0.11-0.59); Neutrophils # (auto) 9.36 K/uL (1.4-6.5); Neutrophils % (auto) 83.3 %; Nucleated RBC # (auto) 0.03 K/uL (0-0); Nucleated RBC % (auto) 0.3 %; Platelet Count 94 K/uL (130-400); Platelet Estimate Decreased (Normal); RDW Standard Deviation 54.6 fL (36.4-46.3); Red Blood Count 3.74 M/uL (4.2-5.4); White Blood Count 11.23 K/uL (4.8-10.8)
[2021-07-25 09:39] LABS: Albumin Level 2.7 gm/dl (3.4-5.0); BUN Creatinine Ratio 33.7 (10-20); Bilirubin,Total 0.3 mg/dl (0.2-1.0); Calcium 8.4 mg/dl (8.5-10.1); Creatinine Clr Calc Pharmacy 73.2 ml/min; Est GFR (African American) 71.8 ml/min; Globulin 2.8 gm/dl (2.5-4.0); Magnesium 1.5 mg/dl (1.7-2.4); Phosphorus 3.2 mg/dl (2.5-4.9); Potassium 3.9 mmol/L (3.5-5.1); Total Protein 5.5 gm/dl (6.0-8.3)
[2021-07-25 10:19] LABS: Estimated Average Glucose 157 mg/dl; Hemoglobin A1C 7.1 % (4.5-5.6)
[2021-07-25] MEDS: MICONAZOLE NITRATE POWDER 43 GM EXT SCH ×2 (10:21→23:36)
[2021-07-25] MEDS: MAGNESIUM SULFATE / D5W 1 GM/100 ML BAG IV SCH ×2 (10:44→12:10)
--- NOTE | 2021-07-25 11:18 | CT Scan Report ---
CT abd pelvis wo con CLINICAL HISTORY: sepsis,UTI,h/o MS,assess for kidney stone TECHNIQUE: Helical axial images of the abdomen and pelvis were obtained. Automated dose lowering tech niques and/or adjustment according to patient size were utilized for this exam. This exam was perfor med without intravenous contrast. COMPARISON: None available at the time of this dictation. FINDINGS: Exam is highly limited by beam hardening, photon starvation, and streak artifact. Lower chest: Atelectasis is seen in the left lower lobe and to a lesser extent in the right lung bas e. Liver: Unremarkable. No focal lesions are seen. Gallbladder and biliary tree: No calcified gallstones. Normal caliber wall. No intra- or extrahepatic biliary ductal dilation. Pancreas: Diffuse fat stranding seen about the pancreas. Evaluation of the pancreatic parenchyma is l imited by patient body habitus. Spleen: Unremarkable. Adrenals: Unremarkable. Kidneys and ureters: There is an exophytic lesion arising from the left kidney measuring 18 mm. It do es not definitely measure fluid density. Bladder: Dangelo catheter is seen. Reproductive organs: Unremarkable. Bowel: Diverticulosis is seen without evidence of diverticulitis. Appendectomy clip is seen. Lymph nodes Retroperitoneal: Unremarkable. Mesenteric: Unremarkable. Pelvic: Unremarkable. Peritoneum: Peripancreatic fat stranding is seen. Vessels: Atherosclerotic calcifications are seen. Abdominal wall: A large inferiorly oriented ventral hernia is seen in the lower abdomen containing mu ltiple loops of bowel. There is no evidence of obstruction or wall thickening. Skin thickening is see n in the pannus with associated fat stranding. Bones: Unremarkable. IMPRESSION: 1. Highly limited exam. Peripancreatic stranding is seen which is favored to represent acute pancrea titis. The pancreatic parenchyma is not well visualized. 2. Left renal exophytic lesion is seen. It is not definitely measure fluid density on today's exam, however density measurements may be inaccurate due to streak artifacts and photon starvation. If ther e is clinical concern, nonemergent ultrasound can be performed. 3. No obstructive nephrolithiasis is seen. ACT 112: Negative or not required by law. Electronically signed by: Prudencio Hodge M.D. 07/25/2021 11:17 AM
[2021-07-25 16:49] LABS: Calcium 8.7 mg/dl (8.5-10.1); Creatinine Clr Calc Pharmacy 69.5 ml/min; Est GFR (African American) 67.5 ml/min; Est GFR (Non-African American) 58.3 ml/min; Potassium 3.9 mmol/L (3.5-5.1)
[2021-07-25 16:57] LABS: Hematocrit (blood only) 37.2 % (37-47); Hemoglobin 12.4 g/dL (12.0-16.0); Mean Corpuscular Hemoglobin 31.6 pg (25-34); Mean Corpuscular Hgb Conc 33.3 g/dL (32-36); Mean Corpuscular Volume 94.7 fL (80-100); Mean Platelet Volume 12.4 fL (7.4-10.4); Platelet Count 99 K/uL (130-400); RDW Standard Deviation 53.6 fL (36.4-46.3); Red Blood Count 3.93 M/uL (4.2-5.4); White Blood Count 15.69 K/uL (4.8-10.8)
[2021-07-25 16:59] LABS: Basophils # (auto) 0.01 K/uL (0-0.2); Basophils % (auto) 0.1 %; Immature Granulocytes # (auto) 0.08 K/uL (0.00-0.02); Immature Granulocytes % (auto) 0.5 %; Lymphocytes # (auto) 0.63 K/uL (1.2-3.4); Monocytes # (auto) 0.44 K/uL (0.11-0.59); Monocytes % (auto) 2.8 %; Neutrophils # (auto) 14.53 K/uL (1.4-6.5); Neutrophils % (auto) 92.6 %; RBC Morphology Unremarkable
[2021-07-25] MEDS ORDERED: OPTIRAY 320 125ml IV ONE (18:00)
--- NOTE | 2021-07-25 18:13 | CT Scan Report ---
CT head/brain wo con CLINICAL HISTORY: 66 years-old Female with altered mental status. Acutely altered mental status TECHNIQUE: Multiple axial CT images of the head were obtained without contrast. A dose lowering tech nique was utilized adhering to the principles of ALARA. COMPARISON: Head CT 03/26/2012 FINDINGS: No acute intracranial hemorrhage, midline shift, intracranial mass, hydrocephalus, territorial ischem ia or abnormal extra-axial collection. Cavum septum pellucidum and vergae. Study is limited secondary to motion degradation. The study was repeated several times with all studies demonstrate motion degr adation. Patchy white matter hypodensities suggest chronic microvascular ischemic disease, progressed from prior. The posterior fossa structures are not well evaluated secondary to motion artifact. The calvarium is intact. Mastoid air cells are clear. There is severe complete opacification of the ethmoid air cells and left frontal sinus. Periosteal thickening of the maxillary sinuses compatible w ith chronic sinus disease. IMPRESSION: Motion degraded exam. No acute intracranial abnormality identified. ACT 112: Negative or not required by law. The above report was generated using voice recognition software. It may contain grammatical, syntax o r spelling errors. Electronically signed by: Pedro Lucas M.D. 07/25/2021 6:12 PM
--- NOTE | 2021-07-25 18:21 | CT Scan Report ---
CT angio chest PE protocol CT DOSE: 3538.17 mGy.cm HISTORY: 66 years-old Female with PE. Acute shortness breath with altered mental status. CT abdomen and pelvis of same day, CTA chest 10/30/2010 TECHNIQUE: Multiple CTA images of the chest were obtained after the intravenous administration of 112 ml Optiray. Coronal and sagittal MIPS were obtained from the axial data set and were submitted for review. All measurements were obtained according to NASCET criteria. A dose lowering technique was u tilized adhering to the principles of ALARA. COMPARISON: CTA chest 10/30/2010, CT abdomen and pelvis 07/25/2021 FINDINGS: Motion degraded exam. CTA: Moderate cardiomegaly. There is no pericardial effusion. Mild coronary artery calcifications. Atheros clerosis of the aorta without aneurysm or dissection identified. Suboptimal evaluation of the pulmona ry arterial tree secondary to respiratory motion artifact and contrast bolus timing. No central pulmo nary emboli are identified. CT CHEST: Unremarkable thyroid. No adenopathy. Trace pleural effusions with dependent bibasilar consolidation, left greater than right. Limited evaluation of the lungs secondary to respiration. Central airways ap pear generally patent. Hepatic steatosis with hepatomegaly. No acute process of the imaged upper abdo men. Unremarkable soft tissues. Degenerative changes of the shoulders and spine. IMPRESSION: 1. Limited exam as above. Cardiomegaly without central pulmonary emboli identified. 2. Trace pleural effusions with left greater than right dependent bibasilar consolidation suggestive of atelectasis versus pneumonia. 3. Hepatomegaly with hepatic steatosis. ACT 112: Negative or not required by law. The above report was generated using voice recognition software. It may contain grammatical, syntax o r spelling errors. Electronically signed by: Pedro Lucas M.D. 07/25/2021 6:20 PM
[2021-07-25] MEDS ORDERED: CASPOFUNGIN 70 MG in SODIUM CHLORIDE 0.9% 250 ML IV ONE (19:15)
[2021-07-25] MEDS ORDERED: Nursing to Pharmacy Communication SCH (20:00)
[2021-07-25 21:17] LABS: Lyme Ab IgG w/WB Rflx Negative (Negative); Lyme Ab IgM w/WB Rflx Negative (Negative)
[2021-07-26] MEDS: ALBUTEROL 0.083% NEBU SOLN 3 ML VIAL NEB SCH ×4 (00:02→19:30)
[2021-07-26] MEDS: DOXYCYCLINE HYCLATE 100 MG in DEXTROSE 5% 100 ML IV SCH ×3 (00:06→21:50)
[2021-07-26] MEDS: INSULIN ASPART PER UNIT SC SCH ×4 (01:00→18:29)
[2021-07-26] MEDS: DAPTOmycin 475 MG in SYRINGE 0 ML IV SCH (04:47)
[2021-07-26] MEDS: ENOXAPARIN INJ 40 MG/0.4 ML SYR SQ SCH ×2 (05:48→16:59)
[2021-07-26] MEDS: LEVOTHYROXINE SODIUM 25 MCG TABLET PO SCH (05:49)
[2021-07-26] MEDS ORDERED: AZITHROMYCIN 250 MG in DEXTROSE 5% 250 ML IV SCH (06:00)
[2021-07-26 08:18] LABS: Albumin Level 2.8 gm/dl (3.4-5.0); BUN Creatinine Ratio 32.4 (10-20); Bilirubin Direct 0.1 mg/dl (0-0.2); Bilirubin,Total 0.4 mg/dl (0.2-1.0); Calcium 8.7 mg/dl (8.5-10.1); Creatinine Clr Calc Pharmacy 67.8 ml/min; Est GFR (African American) 63.6 ml/min; Est GFR (Non-African American) 54.9 ml/min; Total Protein 6.1 gm/dl (6.0-8.3)
[2021-07-26 08:23] LABS: Basophils # (auto) 0.01 K/uL (0-0.2); Basophils % (auto) 0.1 %; Hematocrit (blood only) 36.9 % (37-47); Hemoglobin 12.2 g/dL (12.0-16.0); Immature Granulocytes # (auto) 0.11 K/uL (0.00-0.02); Immature Granulocytes % (auto) 0.6 %; Lymphocytes # (auto) 0.87 K/uL (1.2-3.4); Lymphocytes % (auto) 4.4 %; Mean Corpuscular Hemoglobin 31.5 pg (25-34); Mean Corpuscular Hgb Conc 33.1 g/dL (32-36); Mean Corpuscular Volume 95.3 fL (80-100); Mean Platelet Volume 12.2 fL (7.4-10.4); Monocytes # (auto) 0.86 K/uL (0.11-0.59); Monocytes % (auto) 4.4 %; Neutrophils # (auto) 17.81 K/uL (1.4-6.5); Neutrophils % (auto) 90.5 %; Nucleated RBC # (auto) 0.04 K/uL (0-0); Nucleated RBC % (auto) 0.2 %; Platelet Count 107 K/uL (130-400); Platelet Estimate Decreased (Normal); RDW Coefficient of Variation 16.5 % (11.5-14.5); RDW Standard Deviation 55.3 fL (36.4-46.3); Red Blood Count 3.87 M/uL (4.2-5.4); White Blood Count 19.66 K/uL (4.8-10.8)
--- NOTE | 2021-07-26 08:26 | Magnetic Resonance Report ---
MRI OF THE BRAIN WITHOUT CONTRAST CLINICAL HISTORY: r/o stroke,unresponsive COMPARISON STUDY: Head CT July 25, 2021. TECHNIQUE: Utilizing a 1.5 Seema magnet and dedicated coil, multiplanar, multiecho imaging of the bra in was performed without IV contrast. FINDINGS: This exam is mildly compromised by artifact. However, there are no foci of restricted diffu jerald to suggest acute infarct. No acute intracranial hemorrhage, midline shift or mass effect is pres ent. Ventricular system is unremarkable. Basal cisterns are patent. There are no extra axial collecti ons. Incidental note is made of a cavum septum pellucidum. White matter T2 hyperintense foci are note d, probably periventricular in distribution. No intracranial masses are identified on this unenhanced exam. Calvarial signal is normal. Air-fluid levels are noted within the bilateral maxillary and sphe noid sinuses. Ethmoid sinuses are largely opacified. The left frontal sinus is opacified. Right front al sinus is partially opacified. IMPRESSION: 1. No acute intracranial findings. 2. Exam mildly compromised by artifact. 3. Multiple white matter T2 hyperintense foci, predominantly periventricular in distribution. These s tatistically reflect small vessel disease although demyelinating disease could have this imaging appe arance. 4. Paranasal sinus disease, as described above. ACT 112: Negative or not required by law. Electronically signed by: Pete Aguilar M.D. 07/26/2021 8:25 AM
--- NOTE | 2021-07-26 08:34 | XRay Report ---
XR chest 1V portable HISTORY: 66 years-old Female hypoxia,f/u for PNA acute hypoxia COMPARISON: CTA chest 07/25/2021, chest radiograph 07/24/2021 TECHNIQUE: Portable AP view of the chest FINDINGS: The cardiac silhouette is enlarged. No pneumothorax. Interstitial coarsening with ill-defined bibasil ar airspace opacities, slightly progressed from prior. There is blunting of the lateral left costophr enic angle. Degenerative changes of the shoulders and spine. IMPRESSION: Small left pleural effusion with mildly progressed bibasilar opacities suspicious for pne umonia. ACT 112: Negative or not required by law. The above report was generated using voice recognition software. It may contain grammatical, syntax o r spelling errors. Electronically signed by: Pedro Lucas M.D. 07/26/2021 8:33 AM
[2021-07-26] MEDS: FAMOTIDINE 20 MG in SYRINGE 3 ML IV SCH ×2 (09:28→21:50)
[2021-07-26] MEDS: MICONAZOLE NITRATE POWDER 43 GM EXT SCH ×2 (09:29→21:50)
[2021-07-26] MEDS: CEFEPIME 2,000 MG in SYRINGE 0 ML IV SCH ×2 (09:30→21:50)
[2021-07-26] MEDS: methylPREDNISolone 60 MG in SYRINGE 0 ML IV SCH ×2 (09:45→16:59)
[2021-07-26] MEDS: LACTATED RINGER'S 1,000 ML IV SCH (11:15)
--- NOTE | 2021-07-26 12:21 | Consultation Report ---
NEUROLOGY CONSULTATION NOTE. DATE OF CONSULTATION: 07/26/2021. CHIEF COMPLAINT: Altered mental status/shortness of breath. 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 The patient noted ongoing shortness of breath since . Progressive in nature, noted some chest tightness as well as wheezing. She also had a productive cough and occasional night sweats. This has all been ongoing since . She had no fevers or chills. No nausea or vomiting. EMS was contacted yesterday for progressive shortness of breath. She was satting 87% on room air upon arrival. She was found to be hypothermic with a temperature of 32.3. Oxygen saturations improved to 88% on nasal cannula. The patient was started on antibiotics upon arrival for septic shock. She tested positive for influenza. COVID-19 testing was negative. She suffered from hypotension yesterday as well as lethargy. Neurology was consulted given her prior history of multiple sclerosis. MRI of the brain was completed overnight. ALLERGIES: CODEINE. HOME MEDICATIONS: Albuterol, benazepril, Flonase, Synthroid, metformin, omeprazole, ibuprofen as needed. PAST MEDICAL HISTORY: Asthma, diabetes, hypertension, multiple sclerosis. FAMILY HISTORY: No pertinent family history. SOCIAL HISTORY: Nonsmoker, no prior history of alcohol use. Lives at home. REVIEW OF SYSTEMS: Pertinent for lethargy, altered mental status, shortness of breath, hypertension. Otherwise, all other review of systems was negative. PHYSICAL EXAMINATION: VITAL SIGNS: Blood pressures 124/70, pulse is 109, temperature is 36.3 degrees Celsius, respiratory rate 18, oxygen saturations 93% on BiPAP. Patient seen and examined. She is on BIPAP. Mouth is open. Eyes are closed. Forced eye closure. Squeezes my hand on voice command. Toes both upgoing. Unable to view pupils due to forced eye closure. No tremor or myoclonic jerks. tongue is midline. DIAGNOSTIC TESTING AND LABORATORY VALUES: WBC 19.66, hemoglobin 12.2, platelet count 107, ABG 7.35 is pH. Sodium is 143, potassium 4.0, chloride 113, carbon dioxide 18, BUN is 34, creatinine 1.05. CRP was elevated at 10.5. Ammonia was normal at 25. TSH was elevated at 6.045, free T4 was normal. Random cortisol was 22.46. Urinalysis showed cloudy, 1+ protein, 1+ ketones, 1+ bilirubin, 1+ leukocyte esterase, greater than 30 WBCs, negative bacteria, calcium oxalate crystals were present. Urine yeast was budding. MRSA screen was negative. Influenza type A was positive. Influenza type B was negative. RSV was negative. Lyme was negative. Anaplasmosis screen was negative. Cultures showed Jazzmine albicans in the urine. Blood fungal cultures are pending, no growth to date on blood cultures. IMAGING: Chest x-ray today showed small left pleural effusion with mildly progressive bibasilar opacity suspicious for pneumonia. MRI of the brain showed no acute intracranial findings, exam mildly compromised by artifact. Multiple white matter T2 hyperintense foci predominantly periventricular in distribution. These statistically reflect small vessel disease, although demyelinating disease could have this imaging appearance. Head CT noncontrast showed motion degraded exam. No acute intracranial abnormality. ASSESSMENT AND PLAN: A 66-year-old woman admitted with hypoxic respiratory failure as well as encephalopathy due to septic shock for suspected urinary tract infection versus influenza pneumonia. Remotely seen in the past by [facility] for possible primary progressive multiple sclerosis with no known history of exacerbation or MS flare-up. Not on disease-modifying therapy. MRI of the brain performed without contrast showed no evidence of acute stroke, although noted T2 changes in the periventricular white matter, likely consistent with known history. I do not believe her previous diagnosis of MS is contributing to her clinical presentation. We will continue supportive medical management for her sepsis associated encephalopathy. EEG reviewed this afternoon. Shows generalized slowing with some intermittent triphasic appearing waves consistent with a metabolic/infectious encephalopathy. No seizures or epileptiform activity noted. At this point, I believe the patient has a sepsis associated encephalopathy. This will likely gradually improve with the treatment of the infection. Although mental status often lags the imaging as well as laboratory findings. Please contact Neurology with any additional questions or concerns. Job ID: [id number] [facility]
--- NOTE | 2021-07-26 12:52 | Hospitalist Progress Note ---
Date of Service July 26, 2021 Assessment & Plan (1) Encephalopathy acute: Plan: 66yo female with history of MS, HTN, DM and Asthma presenting with several weeks of progressive dyspnea, acutely worsened today. Patient hypoxic by EMS to 87% on room air which improved with supplemental O2. Coarse breath sounds with end- expiratory wheezing. Labs are significant for POSITIVE INFLUENZA A, mild leukocytosis on admission, was hypothermic, hypotensive on arrival With PNA on CXR, FLu A, UA contaminated with fungus, does have Jazzmine intertrigo so is at risk for fungemia. 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 -continued stay on PCU -continue maintenance IVFs -continue broad spectrum abx as below for PNA, UTI, fungemia, skin source -consult Neuro-awaiting recommendations -will order EEG today to look for seizure -check ASA level, UDS -question if needs LP? Await Neuro opinion (2) Septic shock: Plan: BP was in 70s-80s systolic shortly after admission Typically has HTN and takes benazepril as an outpt BPs improved with volume resuscitation, lactates normal Temp improved with roel hugger Leukocytosis increasing likely due to steroids now follow CBC, CMP, Mag, Phos continue Cefepime, doxy, Caspofungin (3) Influenza A: Plan: Uncertain when diagnosed -Monitor, supportive care. can't give Tamiflu due to being obtunded if decide to place NGT, could start then (4) Pneumonia: Plan: on CXR diffuse rhonchi and wheezing with known Influenza A MRSA swab neg cover for secondary bacterial PNA despite neg PCT -continue Cefepime, doxy (azithro initially given but switched to doxy to cover MRSA and in case of tick borne illness) -supplemental O2 and CPAP support to keep POx> 88% -with h/o asthma and had significant wheezing on arrival--> continue IV steroids and scheduled Albuterol nebs -with thick sputum suctioned from lungs with some blood overnight -check sputum culture -check Legionella ag -PULM consult placed -appreciate any further recommedations (5) Hypoxia: Plan: secondary to PNA, asthma exacerbation continue CPAP, O2 as above (6) Hypothermia: Plan: Patient hypothermic on arrival to 32.1. She denies exposure. Warming blanket placed. 2/2 sepsis? MS flare? 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 She has a nebulizer at home, no home O2 -continue albuterol nebs, steroids (9) Hypertension: Plan: with septic shock -Hold Benazepril -Continue to monitor (10) Diabetes: Plan: continue Novolog, accuchecks (11) Metabolic acidosis: Plan: as above (12) Hypomagnesemia: Plan: replaced and resolved follow Mag (13) Peripheral edema: Plan: chronic as per likely lymphedema ok to continue maintenance fluids (14) Multiple sclerosis: Plan: no treatment since 2011, followed previously with Dr. Fox at baseline can stand with assistance and pivot from wheelchair to recliner where she sleeps, can pivot into shower chair and shower heself, can cook from wheelchair Mental status perfectly clear typically Awaiting Neuro consult (15) Thrombocytopenia: Plan: platelets mildly low t 104, stable from yesterday but lower than on admission likely from sepsis, but question if related to MS related flare and hypothermia? follow CBC (16) Pancreatitis: Plan: CT abd/epl mentions some stranding around pancreas check lipase difficult to tell if has pain LFTs normal GB appears normal, no CBD dilatation (17) Hypothyroidism: Plan: TSH here mildly elevated at 6 make LT4 through IV while obtunded (18) GERD (gastroesophageal reflux disease): Plan: start IV PPI while obtunded Plan: DVT proph-Lovenox Dispo-continued stay in PCU Very guarded prognosis Discussed care with daughter on phone and will see when he comes in at 2:00 Admission and Anticipated Discharge Date Admission Date: July 25, 2021 Subjective Remains completely obtunded. On CPAP. Had thick salguero bloody sputum suctioned out overnight. GCS 7-moves feet with pain applied to great toenail beds today Tele with NSR, ST, rates 90-1010s Review of Systems Review of Systems: Unobtainable due to cognitive status and Unobtainable due to reduced consciousness Physical Exam Constitutional: WD/WN, vitals as above + morbidly obese Eyes: PERRL, conjunctivae normal, anicteric sclerae ENMT: external ear and nose normal, oropharynx normal Neck: trachea midline, no thyromegaly Respiratory: normal respiratory effort (with CPAP in place) Auscultation: + rhonchi (bilat but improved from previous) and + wheezes (mild, improved from previous) Cardiovascular: Rate/Rhythm: regular rate and regular rhythm Heart Sounds: no murmur Extremities: + edema (3+ pitting edema LEs bilat) Chest (Breasts): Chest: normal inspection of chest Gastrointestinal (Abdomen): Inspection/Auscultation: + significant pannus and + visible herniation (large, right lower to mid abdomen); + abdomen abnormal to inspection Percussion/Palpation: abdomen soft; abdomen nontender Musculoskeletal: Extremities: + extremities abnormal to inspection, no cyanosis and no clubbing Skin: + rash (severe Jazzmine intertrigo underneath abd pannus and upper thighs, groins) Neurologic: + obtunded Cranial Nerves: PERRL moves great toes today to pressure applied to toenail beds not able to arouse her with sternal rub, loud verbal stimulus No facial droop No nystagmus LUE seems a bit rigid, RUE no rigidity could not get DTR in LUE due to rigidity 2+ DTR Rt biceps not able to get reflexes in LEs Genitourinary: Dangelo in place draining clear yellow urine Lymphatic: + lymphedema (bilat LEs) Results & Data Results & Data ([facility]) Vital Signs (Past 12 Hours) Vital Signs Temp Pulse Pulse Pulse Resp BP Pulse Ox 07/26/21 11:53 36.5 C 68 18 103/67 97 07/26/21 07:35 36.3 C L 109 H 18 124/70 93 07/26/21 07:23 104 H 104 H 29 H 91 07/26/21 03:32 112 H 30 H 93 07/26/21 03:27 36.8 C 110 H 18 95/62 L 96 07/26/21 01:35 36.3 C L 104 H 20 98/63 L 93 Laboratory Results 07/26/21 07/26/21 07/26/21 Range/Units 11:53 07:18 07:18 WBC 19.66 H (4.8-10.8) K/uL RBC 3.87 L (4.2-5.4) M/uL Hgb 12.2 (12.0-16.0) g/dL Hct 36.9 L (37-47) % MCV 95.3 (80-100) fL MCH 31.5 (25-34) pg MCHC 33.1 (32-36) g/dL RDW Std Deviation 55.3 H (36.4-46.3) fL RDW Coeff of Kaia 16.5 H (11.5-14.5) % Plt Count 107 L (130-400) K/uL MPV 12.2 H (7.4-10.4) fL Immature Gran % (Auto) 0.6 % Neut % (Auto) 90.5 % Lymph % (Auto) 4.4 % Beauregard % (Auto) 4.4 % Eos % (Auto) 0.0 % Baso % (Auto) 0.1 % Neut # (Auto) 17.81 H (1.4-6.5) K/uL Lymph # (Auto) 0.87 L (1.2-3.4) K/uL Beauregard # (Auto) 0.86 H (0.11-0.59) K/uL Eos # (Auto) 0.00 (0-0.5) K/uL Baso # (Auto) 0.01 (0-0.2) K/uL Immature Gran # (Auto) 0.11 H (0.00-0.02) K/uL Absolute Nucleated RBC 0.04 H (0-0) K/uL Nucleated RBC % (auto) 0.2 % Platelet Estimate Decreased L (Normal) RBC Morphology Sodium 143 (136-145) mmol/L Potassium 4.0 (3.5-5.1) mmol/L Chloride 113 H (98-107) mmol/L Carbon Dioxide 18 L (21-32) mmol/L Anion Gap 12 H (3-11) BUN 34 H (6-23) mg/dl Creatinine 1.05 (0.6-1.2) mg/dl Est Cr Clr Drug Dosing 67.8 ml/min Est GFR ( Amer) 63.6 ml/min Est GFR (Non-Af Amer) 54.9 ml/min BUN/Creatinine Ratio 32.4 H (10-20) Glucose 172 H (70-99) mg/dl POC Glucose 158 H (70-99) mg/dl Lactate (0.4-2.0) mmol/L Calcium 8.7 (8.5-10.1) mg/dl Magnesium 2.0 (1.7-2.4) mg/dl Total Bilirubin 0.4 (0.2-1.0) mg/dl Direct Bilirubin 0.1 (0-0.2) mg/dl AST 33 (13-39) U/L ALT 30 (7-52) U/L Alkaline Phosphatase 120 H (34-104) U/L Total Protein 6.1 (6.0-8.3) gm/dl Albumin 2.8 L (3.4-5.0) gm/dl Anaplasma Smear A. phagocytophilum DNA Lyme Disease IgG Ab (Negative) Lyme Disease IgM Ab (Negative) Beta-(1,3)-D-Glucan B-(1,3)-D-Glucan Intrp 07/26/21 07/26/21 07/25/21 Range/Units 05:30 00:53 18:13 WBC (4.8-10.8) K/uL RBC (4.2-5.4) M/uL Hgb (12.0-16.0) g/dL Hct (37-47) % MCV (80-100) fL MCH (25-34) pg MCHC (32-36) g/dL RDW Std Deviation (36.4-46.3) fL RDW Coeff of Kaia (11.5-14.5) % Plt Count (130-400) K/uL MPV (7.4-10.4) fL Immature Gran % (Auto) % Neut % (Auto) % Lymph % (Auto) % Beauregard % (Auto) % Eos % (Auto) % Baso % (Auto) % Neut # (Auto) (1.4-6.5) K/uL Lymph # (Auto) (1.2-3.4) K/uL Beauregard # (Auto) (0.11-0.59) K/uL Eos # (Auto) (0-0.5) K/uL Baso # (Auto) (0-0.2) K/uL Immature Gran # (Auto) (0.00-0.02) K/uL Absolute Nucleated RBC (0-0) K/uL Nucleated RBC % (auto) % Platelet Estimate (Normal) RBC Morphology Sodium (136-145) mmol/L Potassium (3.5-5.1) mmol/L Chloride (98-107) mmol/L Carbon Dioxide (21-32) mmol/L Anion Gap (3-11) BUN (6-23) mg/dl Creatinine (0.6-1.2) mg/dl Est Cr Clr Drug Dosing ml/min Est GFR ( Amer) ml/min Est GFR (Non-Af Amer) ml/min BUN/Creatinine Ratio (10-20) Glucose (70-99) mg/dl POC Glucose 164 H 159 H (70-99) mg/dl Lactate (0.4-2.0) mmol/L Calcium (8.5-10.1) mg/dl Magnesium (1.7-2.4) mg/dl Total Bilirubin (0.2-1.0) mg/dl Direct Bilirubin (0-0.2) mg/dl AST (13-39) U/L ALT (7-52) U/L Alkaline Phosphatase (34-104) U/L Total Protein (6.0-8.3) gm/dl Albumin (3.4-5.0) gm/dl Anaplasma Smear A. phagocytophilum DNA Lyme Disease IgG Ab (Negative) Lyme Disease IgM Ab (Negative) Beta-(1,3)-D-Glucan Pending B-(1,3)-D-Glucan Intrp Pending 07/25/21 07/25/21 07/25/21 Range/Units 17:13 16:28 16:19 WBC (4.8-10.8) K/uL RBC (4.2-5.4) M/uL Hgb (12.0-16.0) g/dL Hct (37-47) % MCV (80-100) fL MCH (25-34) pg MCHC (32-36) g/dL RDW Std Deviation (36.4-46.3) fL RDW Coeff of Kaia (11.5-14.5) % Plt Count (130-400) K/uL MPV (7.4-10.4) fL Immature Gran % (Auto) % Neut % (Auto) % Lymph % (Auto) % Beauregard % (Auto) % Eos % (Auto) % Baso % (Auto) % Neut # (Auto) (1.4-6.5) K/uL Lymph # (Auto) (1.2-3.4) K/uL Beauregard # (Auto) (0.11-0.59) K/uL Eos # (Auto) (0-0.5) K/uL Baso # (Auto) (0-0.2) K/uL Immature Gran # (Auto) (0.00-0.02) K/uL Absolute Nucleated RBC (0-0) K/uL Nucleated RBC % (auto) % Platelet Estimate (Normal) RBC Morphology Sodium (136-145) mmol/L Potassium (3.5-5.1) mmol/L Chloride (98-107) mmol/L Carbon Dioxide (21-32) mmol/L Anion Gap (3-11) BUN (6-23) mg/dl Creatinine (0.6-1.2) mg/dl Est Cr Clr Drug Dosing ml/min Est GFR ( Amer) ml/min Est GFR (Non-Af Amer) ml/min BUN/Creatinine Ratio (10-20) Glucose (70-99) mg/dl POC Glucose 123 H (70-99) mg/dl Lactate 0.8 (0.4-2.0) mmol/L Calcium (8.5-10.1) mg/dl Magnesium (1.7-2.4) mg/dl Total Bilirubin (0.2-1.0) mg/dl Direct Bilirubin (0-0.2) mg/dl AST (13-39) U/L ALT (7-52) U/L Alkaline Phosphatase (34-104) U/L Total Protein (6.0-8.3) gm/dl Albumin (3.4-5.0) gm/dl Anaplasma Smear A. phagocytophilum DNA Lyme Disease IgG Ab Negative (Negative) Lyme Disease IgM Ab Negative (Negative) Beta-(1,3)-D-Glucan B-(1,3)-D-Glucan Intrp 01/07/0407/25/21 07/25/21 Range/Units 16:19 16:19 16:19 WBC (4.8-10.8) K/uL RBC (4.2-5.4) M/uL Hgb (12.0-16.0) g/dL Hct (37-47) % MCV (80-100) fL MCH (25-34) pg MCHC (32-36) g/dL RDW Std Deviation (36.4-46.3) fL RDW Coeff of Kaia (11.5-14.5) % Plt Count (130-400) K/uL MPV (7.4-10.4) fL Immature Gran % (Auto) % Neut % (Auto) % Lymph % (Auto) % Beauregard % (Auto) % Eos % (Auto) % Baso % (Auto) % Neut # (Auto) (1.4-6.5) K/uL Lymph # (Auto) (1.2-3.4) K/uL Beauregard # (Auto) (0.11-0.59) K/uL Eos # (Auto) (0-0.5) K/uL Baso # (Auto) (0-0.2) K/uL Immature Gran # (Auto) (0.00-0.02) K/uL Absolute Nucleated RBC (0-0) K/uL Nucleated RBC % (auto) % Platelet Estimate (Normal) RBC Morphology Sodium 142 (136-145) mmol/L Potassium 3.9 (3.5-5.1) mmol/L Chloride 113 H (98-107) mmol/L Carbon Dioxide 19 L (21-32) mmol/L Anion Gap 10 (3-11) BUN 32 H (6-23) mg/dl Creatinine 1.00 (0.6-1.2) mg/dl Est Cr Clr Drug Dosing 69.5 ml/min Est GFR ( Amer) 67.5 ml/min Est GFR (Non-Af Amer) 58.3 ml/min BUN/Creatinine Ratio 32.0 H (10-20) Glucose 129 H (70-99) mg/dl POC Glucose (70-99) mg/dl Lactate (0.4-2.0) mmol/L Calcium 8.7 (8.5-10.1) mg/dl Magnesium 2.0 (1.7-2.4) mg/dl Total Bilirubin (0.2-1.0) mg/dl Direct Bilirubin (0-0.2) mg/dl AST (13-39) U/L ALT (7-52) U/L Alkaline Phosphatase (34-104) U/L Total Protein (6.0-8.3) gm/dl Albumin (3.4-5.0) gm/dl Anaplasma Smear See Comment A. phagocytophilum DNA Pending Lyme Disease IgG Ab (Negative) Lyme Disease IgM Ab (Negative) Beta-(1,3)-D-Glucan B-(1,3)-D-Glucan Intrp 07/25/21 Range/Units 16:19 WBC 15.69 H (4.8-10.8) K/uL RBC 3.93 L (4.2-5.4) M/uL Hgb 12.4 (12.0-16.0) g/dL Hct 37.2 (37-47) % MCV 94.7 (80-100) fL MCH 31.6 (25-34) pg MCHC 33.3 (32-36) g/dL RDW Std Deviation 53.6 H (36.4-46.3) fL RDW Coeff of Kaia 16.0 H (11.5-14.5) % Plt Count 99 L (130-400) K/uL MPV 12.4 H (7.4-10.4) fL Immature Gran % (Auto) 0.5 % Neut % (Auto) 92.6 % Lymph % (Auto) 4.0 % Beauregard % (Auto) 2.8 % Eos % (Auto) 0.0 % Baso % (Auto) 0.1 % Neut # (Auto) 14.53 H (1.4-6.5) K/uL Lymph # (Auto) 0.63 L (1.2-3.4) K/uL Beauregard # (Auto) 0.44 (0.11-0.59) K/uL Eos # (Auto) 0.00 (0-0.5) K/uL Baso # (Auto) 0.01 (0-0.2) K/uL Immature Gran # (Auto) 0.08 H (0.00-0.02) K/uL Absolute Nucleated RBC (0-0) K/uL Nucleated RBC % (auto) % Platelet Estimate (Normal) RBC Morphology Unremarkable Sodium (136-145) mmol/L Potassium (3.5-5.1) mmol/L Chloride (98-107) mmol/L Carbon Dioxide (21-32) mmol/L Anion Gap (3-11) BUN (6-23) mg/dl Creatinine (0.6-1.2) mg/dl Est Cr Clr Drug Dosing ml/min Est GFR ( Amer) ml/min Est GFR (Non-Af Amer) ml/min BUN/Creatinine Ratio (10-20) Glucose (70-99) mg/dl POC Glucose (70-99) mg/dl Lactate (0.4-2.0) mmol/L Calcium (8.5-10.1) mg/dl Magnesium (1.7-2.4) mg/dl Total Bilirubin (0.2-1.0) mg/dl Direct Bilirubin (0-0.2) mg/dl AST (13-39) U/L ALT (7-52) U/L Alkaline Phosphatase (34-104) U/L Total Protein (6.0-8.3) gm/dl Albumin (3.4-5.0) gm/dl Anaplasma Smear A. phagocytophilum DNA Lyme Disease IgG Ab (Negative) Lyme Disease IgM Ab (Negative) Beta-(1,3)-D-Glucan B-(1,3)-D-Glucan Intrp PG Care Time/CCT Total # of Minutes Spent Total Time Spent with Patient: Total time spent is greater than 50% in coordination of care (as documented) at patient's floor/unit and/or counseling patient: Coding Level of Care Code 48175 Subseq Hosp Care Lvl 3 Diagnoses Hypothermia T68.XXXA Encounter type: initial encounter Fungal dermatitis B36.9 Asthma J45.909 Hypertension I10 Diabetes E11.9 Influenza A J10.1 Pneumonia J18.9 Laterality: left Lung location: lower lobe of lung Pneumonia type: due to unspecified organism Hypoxia R09.02 Encephalopathy acute G93.40 Metabolic acidosis E87.2 Hypomagnesemia E83.42 Septic shock A41.9; R65.21 Peripheral edema R60.9 Multiple sclerosis G35 Thrombocytopenia D69.6 Pancreatitis K85.90 Hypothyroidism E03.9 GERD (gastroesophageal reflux disease) K21.9 (1) Hypothermia Encounter type: initial encounter Qualified Code(s): T68.XXXA - Hypothermia, initial encounter (2) Pneumonia Laterality: left Lung location: lower lobe of lung Pneumonia type: due to unspecified organism Qualified Code(s): J18.9 - Pneumonia, unspecified organism
[2021-07-26 13:59] LABS: Allen Test Pos (Pos); Base Excess ABG -3.7 mEq/L (-9-1.8); HCO3 ABG 21 mmol/L (19-24); PCO2 ABG 36 mmHg (35-46); PO2 ABG 97 mmHg (80-95); pH ABG 7.38 (7.35-7.45)
--- NOTE | 2021-07-26 18:07 | Pulmonary Consultation ---
Date of Consultation July 26, 2021 Assessment & Plan (1) Atelectasis: (2) Influenza A: (3) Asthma: Impression: 66-year-old morbidly obese female admitted with influenza A. She had some atelectasis on her CT scan. Blood gases never demonstrated hypercarbia. Recommendations: 1. Influenza A: Management is supportive at this point time. 2. History of asthma: May be aggravated by influenza A. Would start budesonide and Pulmicort neb treatments. can likely rapidly wean steroids to PO when more awake and alert. 3. Basilar atelectasis: Likely secondary to the patient's morbid obesity. CPAP or BiPAP is not typically recommended to treat dependent atelectasis. She has no evidence of hypercarbic respiratory failure. Would favor transitioning to nasal cannula, getting the patient sitting upright in bed is much as possible. Once her mental status resolves, consideration for incentive spirometry and/or flutter valve might be appropriate. 4. Hypoxemia: Continue supplemental oxygen titrated to keep saturations at or above 88% History of Present Illness Attending Physician: Kiya Presley MD History of Present Illness Asked by hospitalist to evaluate this patient with influenza A and asthma. History is obtained from discussion with the hospitalist as well as review the electronic medical record. Patient is somewhat obtunded and unable to provide reliable history currently. Allergies Allergy/AdvReac Type Severity Reaction Status Date / Time codeine AdvReac Mild NAUSEATED Verified 07/24/21 22:09 Home Medications Medication Instructions Recorded Confirmed Type albuterol sulfate 2.5 mg INHALATION DIRECTED PRN 06/25/21 07/24/21 History benazepril 40 mg tablet 40 mg PO DAILY 06/25/21 07/24/21 History fluticasone 100 mcg-salmeterol 50 1 ea INHALATION BID 06/25/21 07/24/21 History mcg/dose blistr powdr for inhalation (Wixela Inhub) levothyroxine 25 mcg tablet 25 mcg PO DAILY 06/25/21 07/24/21 History metformin 500 mg tablet 500 mg PO BID 06/25/21 07/24/21 History omeprazole 20 mg capsule,delayed 20 mg PO DAILY 06/25/21 07/24/21 History release amoxicillin 875 mg-potassium 1 tab PO BID 07/24/21 07/24/21 History clavulanate 125 mg tablet ibuprofen 800 mg tablet 800 mg PO TID PRN 07/24/21 07/24/21 History Patient History Medical History (Updated 07/26/21 @ 18:14 by Brendan Sullivan MD) Asthma Diabetes GERD (gastroesophageal reflux disease) Hypertension Hypothyroidism Multiple sclerosis Family History (Updated 07/25/21 @ 02:11 by Veronica Butterfield DO) Other Family history non-contributory Social History Smoking Status: Unknown if ever smoked Hx Alcohol Use: No (unknown) Hx Substance Use: No (unknown) Preferred Language: Bhutanese Director Of Adult Epilepsy Required: No Current Living Situation: Spouse Feels Safe at Home: Yes Assistive Devices: BiPap Review of Systems Review of Systems: Unobtainable due to reduced consciousness Physical Exam Physical Exam: General: patient resting comfortably in bed, ill in appearance, poorly kempt Skin: warm, dry, well demarcated erythematous rash present on groin, pannus, anterior thighs HEENT: NC/AT, PERRL, EOMI, anicteric sclera, conjunctiva without injection, external ear normal to inspection and nontender, nares patent, dry mucus membranes, dentition intact, no oropharyngeal lesions, neck supple, trachea midline, no LAD, no thyromegaly, no JVD Heart: +S1/S2, regular, no m/r/g Lungs: equal air entry bilaterally, coarse inspiratory breath sounds with diffuse end-expiratory wheezing Abd: +BS, soft, NT/ND, no masses/organomegaly/ascites Ext: warm, 2+ pulses in UE/LE bilaterally, no clubbing/cyanosis, +pedal edema Neuro: nonfocal, patient AA&O x 4, speech intact, no facial droop, moving all extremities on command with equal strength 5/5 Results & Data Results & Data ([facility]) Vital Signs (Past 12 Hours) Vital Signs Temp Pulse Pulse Pulse Resp BP Pulse Ox 07/26/21 15:56 36.5 C 97 H 20 91/56 L 96 07/26/21 13:19 65 22 97 07/26/21 11:53 36.5 C 68 18 103/67 97 07/26/21 08:00 68 07/26/21 07:35 36.3 C L 109 H 18 124/70 93 07/26/21 07:23 104 H 104 H 29 H 91 Critical Care Results & Data Vital Signs (Past 12 Hours) Vital Signs Temp Pulse Pulse Pulse Resp BP Pulse Ox 07/26/21 15:56 36.5 C 97 H 20 91/56 L 96 07/26/21 13:19 65 22 97 07/26/21 11:53 36.5 C 68 18 103/67 97 07/26/21 08:00 68 07/26/21 07:35 36.3 C L 109 H 18 124/70 93 07/26/21 07:23 104 H 104 H 29 H 91 Lab & Micro Results (Past 24 Hours) RBC 3.87 M/uL (4.2-5.4) L 07/26/21 WBC 19.66 K/uL (4.8-10.8) H 07/26/21 Hgb 12.2 g/dL (12.0-16.0) 07/26/21 Hct 36.9 % (37-47) L 07/26/21 MCV 95.3 fL (80-100) 07/26/21 MCH 31.5 pg (25-34) 07/26/21 MCHC 33.1 g/dL (32-36) 07/26/21 RDW Standard Deviation 55.3 fL (36.4-46.3) H 07/26/21 RDW Coefficient of Variation 16.5 % (11.5-14.5) H 07/26/21 Plt Count 107 K/uL (130-400) L 07/26/21 MPV 12.2 fL (7.4-10.4) H 07/26/21 Nucleated Red Blood Cells % (auto) 0.2 % 07/26/21 Nucleated RBC Absolute Count (auto) 0.04 K/uL (0-0) H 07/26/21 Neutrophils (%) (Auto) 90.5 % 07/26/21 Lymphocytes (%) (Auto) 4.4 % 07/26/21 Monocytes # (Auto) 0.86 K/uL (0.11-0.59) H 07/26/21 Eosinophils # (Auto) 0.00 K/uL (0-0.5) 07/26/21 Immature Granulocyte % (Auto) 0.6 % 07/26/21 Neutrophils # (Auto) 17.81 K/uL (1.4-6.5) H 07/26/21 Lymphocytes # (Auto) 0.87 K/uL (1.2-3.4) L 07/26/21 Monocytes # (Auto) 0.86 K/uL (0.11-0.59) H 07/26/21 Eosinophils # (Auto) 0.00 K/uL (0-0.5) 07/26/21 Basophils # (Auto) 0.01 K/uL (0-0.2) 07/26/21 Immature Granulocyte # (Auto) 0.11 K/uL (0.00-0.02) H 07/26/21 Na 143 mmol/L (136-145) 07/26/21 K 4.0 mmol/L (3.5-5.1) 07/26/21 Cl 113 mmol/L (98-107) H 07/26/21 CO2 18 mmol/L (21-32) L 07/26/21 Anion Gap 12 (3-11) H 07/26/21 BUN 34 mg/dl (6-23) H 07/26/21 Creatinine 1.05 mg/dl (0.6-1.2) 07/26/21 Estimated GFR ( Amer) 63.6 ml/min 07/26/21 Estimated GFR (Non-Af Amer) 54.9 ml/min 07/26/21 BUN/Creatinine Ratio 32.4 (10-20) H 07/26/21 Glu 172 mg/dl (70-99) H 07/26/21 Ca 8.7 mg/dl (8.5-10.1) 07/26/21 Total Bilirubin 0.4 mg/dl (0.2-1.0) 07/26/21 Direct Bilirubin 0.1 mg/dl (0-0.2) 07/26/21 AST 33 U/L (13-39) 07/26/21 ALT 30 U/L (7-52) 07/26/21 Alkaline Phosphatase 120 U/L (34-104) H 07/26/21 TP 6.1 gm/dl (6.0-8.3) 07/26/21 Albumin 2.8 gm/dl (3.4-5.0) L 07/26/21 Mg 2.0 mg/dl (1.7-2.4) 07/26/21 07:18 07/26/21 Calcium Level 8.7 mg/dl (8.5-10.1) 07/26/21 07:18 07/26/21 Blood Gas Barometric Pressure 728.0 mm/Hg 07/26/21 13:43 07/26/21 Arterial Blood pH 7.38 (7.35-7.45) 07/26/21 13:43 07/26/21 Arterial Blood Partial Pressure CO2 36 mmHg (35-46) 07/26/21 13:43 07/26/21 Arterial Blood Partial Pressure O2 97 mmHg (80-95) H 07/26/21 13:43 07/26/21 Arterial Blood HCO3 21 mmol/L (19-24) 07/26/21 13:43 07/26/21 Arterial Blood Base Excess -3.7 mEq/L (-9-1.8) 07/26/21 13:43 07/26/21 Arterial Blood Oxygen Saturation 98.0 % (90-95) H 07/26/21 13:43 07/26/21 Blood Gas Oxygen Given 4L 07/26/21 13:43 07/26/21 Abram Test Pos (Pos) 07/26/21 13:43 07/26/21 Blood Gas Barometric Pressure 728.0 mm/Hg 07/26/21 13:43 07/26/21 Microbiology 07/25/21 18:13 Fungal Smear - Final Blood 07/24/21 23:45 Urine Culture - Preliminary Urine,Clean Catch Jazzmine albicans/dubliniensis 07/24/21 21:36 Aerobic Blood Culture - Preliminary Blood No growth in Aerobic bottle after 24 hours. Anaerobic Blood Culture - Preliminary No growth in Anaerobic bottle after 24 hours. 07/24/21 21:55 Aerobic Blood Culture - Preliminary Blood No growth in Aerobic bottle after 24 hours. Anaerobic Blood Culture - Preliminary No growth in Anaerobic bottle after 24 hours. Diagnostic Findings (Past 24 Hours) Head CT 07/25/21 17:06 CT head/brain wo con CLINICAL HISTORY: 66 years-old Female with altered mental status. Acutely altered mental status TECHNIQUE: Multiple axial CT images of the head were obtained without contrast. A dose lowering technique was utilized adhering to the principles of ALARA. COMPARISON: Head CT 03/26/2012 FINDINGS: No acute intracranial hemorrhage, midline shift, intracranial mass, hydrocephalus, territorial ischemia or abnormal extra-axial collection. Cavum septum pellucidum and vergae. Study is limited secondary to motion degradation. The study was repeated several times with all studies demonstrate motion degradation. Patchy white matter hypodensities suggest chronic microvascular ischemic disease, progressed from prior. The posterior fossa structures are not well evaluated secondary to motion artifact. The calvarium is intact. Mastoid air cells are clear. There is severe complete opacification of the ethmoid air cells and left frontal sinus. Periosteal thickening of the maxillary sinuses compatible with chronic sinus disease. IMPRESSION: Motion degraded exam. No acute intracranial abnormality identified. ACT 112: Negative or not required by law. The above report was generated using voice recognition software. It may contain grammatical, syntax or spelling errors. Electronically signed by: Pedro Lucas M.D. 07/25/2021 6:12 PM Chest CTA 07/25/21 17:07 CT angio chest PE protocol CT DOSE: 3538.17 mGy.cm HISTORY: 66 years-old Female with PE. Acute shortness breath with altered mental status. CT abdomen and pelvis of same day, CTA chest 10/30/2010 TECHNIQUE: Multiple CTA images of the chest were obtained after the intravenous administration of 112 ml Optiray. Coronal and sagittal MIPS were obtained from the axial data set and were submitted for review. All measurements were obtained according to NASCET criteria. A dose lowering technique was utilized adhering to the principles of ALARA. COMPARISON: CTA chest 10/30/2010, CT abdomen and pelvis 07/25/2021 FINDINGS: Motion degraded exam. CTA: Moderate cardiomegaly. There is no pericardial effusion. Mild coronary artery calcifications. Atherosclerosis of the aorta without aneurysm or dissection identified. Suboptimal evaluation of the pulmonary arterial tree secondary to respiratory motion artifact and contrast bolus timing. No central pulmonary emboli are identified. CT CHEST: Unremarkable thyroid. No adenopathy. Trace pleural effusions with dependent bibasilar consolidation, left greater than right. Limited evaluation of the lungs secondary to respiration. Central airways appear generally patent. Hepatic steatosis with hepatomegaly. No acute process of the imaged upper abdomen. Unremarkable soft tissues. Degenerative changes of the shoulders and spine. IMPRESSION: 1. Limited exam as above. Cardiomegaly without central pulmonary emboli identified. 2. Trace pleural effusions with left greater than right dependent bibasilar consolidation suggestive of atelectasis versus pneumonia. 3. Hepatomegaly with hepatic steatosis. ACT 112: Negative or not required by law. The above report was generated using voice recognition software. It may contain grammatical, syntax or spelling errors. Electronically signed by: Pedro Lucas M.D. 07/25/2021 6:20 PM Brain MRI 07/25/21 18:55 MRI OF THE BRAIN WITHOUT CONTRAST CLINICAL HISTORY: r/o stroke,unresponsive COMPARISON STUDY: Head CT July 25, 2021. TECHNIQUE: Utilizing a 1.5 Seema magnet and dedicated coil, multiplanar, multiecho imaging of the brain was performed without IV contrast. FINDINGS: This exam is mildly compromised by artifact. However, there are no foci of restricted diffusion to suggest acute infarct. No acute intracranial hemorrhage, midline shift or mass effect is present. Ventricular system is unremarkable. Basal cisterns are patent. There are no extra axial collections. Incidental note is made of a cavum septum pellucidum. White matter T2 hyperintense foci are noted, probably periventricular in distribution. No intracranial masses are identified on this unenhanced exam. Calvarial signal is normal. Air-fluid levels are noted within the bilateral maxillary and sphenoid sinuses. Ethmoid sinuses are largely opacified. The left frontal sinus is opacified. Right frontal sinus is partially opacified. IMPRESSION: 1. No acute intracranial findings. 2. Exam mildly compromised by artifact. 3. Multiple white matter T2 hyperintense foci, predominantly periventricular in distribution. These statistically reflect small vessel disease although demyelinating disease could have this imaging appearance. 4. Paranasal sinus disease, as described above. ACT 112: Negative or not required by law. Electronically signed by: Pete Aguilar M.D. 07/26/2021 8:25 AM Chest X-Ray 07/26/21 07:31 XR chest 1V portable HISTORY: 66 years-old Female hypoxia,f/u for PNA acute hypoxia COMPARISON: CTA chest 07/25/2021, chest radiograph 07/24/2021 TECHNIQUE: Portable AP view of the chest FINDINGS: The cardiac silhouette is enlarged. No pneumothorax. Interstitial coarsening with ill-defined bibasilar airspace opacities, slightly progressed from prior. There is blunting of the lateral left costophrenic angle. Degenerative changes of the shoulders and spine. IMPRESSION: Small left pleural effusion with mildly progressed bibasilar opacities suspicious for pneumonia. ACT 112: Negative or not required by law. The above report was generated using voice recognition software. It may contain grammatical, syntax or spelling errors. Electronically signed by: Pedro Lucas M.D. 07/26/2021 8:33 AM I & O Totals 24 Hours 07/25/21 07/26/21 07/27/21 06:59 06:59 06:59 Intake Total 1755 / 1755 3760.334 / 3760.334 391.333 / 391.333 Output Total 525 / 525 Balance 1755 / 1755 3235.334 / 3235.334 391.333 / 391.333 Cumulative 07/24/21 21:02 thru 07/26/21 11:42 Intake Total 5906.667 Output Total 525 Balance 5381.667 RT Ventilator Mngmt (Last Documented) Ventilator Ordered Settings Respiratory Rate 20 07/26/21 15:56 Ventilator - PT Measurements Respiratory Rate 20 PG Care Time/CCT Total # of Minutes Spent Total Time Spent with Patient: Total time spent is greater than 50% in coordination of care (as documented) at patient's floor/unit and/or counseling patient: Coding Level of Care Code 80479 Initial Inpt Care Lvl 2 Diagnoses Atelectasis J98.11 Influenza A J10.1 Asthma J45.909
[2021-07-26 18:21] LABS: Amphetamines+Metham, Urine Neg (Neg); Barbiturates, Urine Neg (Neg); Benzodiazepine, Urine Neg (Neg); Cocaine, Urine Neg (Neg); MDMA (Ecstacy), Urine Neg (Neg); Methadone, Urine Neg (Neg); Opiate, Urine Neg (Neg); Phencyclidine, Urine Neg (Neg)
[2021-07-26] MEDS: CASPOFUNGIN 50 MG in SODIUM CHLORIDE 0.9% 250 ML IV SCH (18:29)
[2021-07-26] MEDS: BUDESONIDE 0.5 MG/2 ML VIAL (PULMICORT) NEB SCH (21:29)
[2021-07-26] MEDS: FORMOTEROL 20 MCG/2 ML VIAL NEB SCH (21:29)
--- NOTE | 2021-07-26 22:15 | Electroencephalogram ---
EEG Procedure Note Date of Service July 26, 2021 Start / End Times Start Time: 14:50 End Time: 15:[address] Kiya Presley History A 66 year old woman with encephalopathy. EEG performed for evaluation of epileptiform activity. Home Medication List Medication Instructions Recorded Confirmed Type albuterol sulfate 2.5 mg INHALATION DIRECTED PRN 06/25/21 07/24/21 History benazepril 40 mg tablet 40 mg PO DAILY 06/25/21 07/24/21 History fluticasone 100 mcg-salmeterol 50 1 ea INHALATION BID 06/25/21 07/24/21 History mcg/dose blistr powdr for inhalation (Wixela Inhub) levothyroxine 25 mcg tablet 25 mcg PO DAILY 06/25/21 07/24/21 History metformin 500 mg tablet 500 mg PO BID 06/25/21 07/24/21 History omeprazole 20 mg capsule,delayed 20 mg PO DAILY 06/25/21 07/24/21 History release amoxicillin 875 mg-potassium 1 tab PO BID 07/24/21 07/24/21 History clavulanate 125 mg tablet ibuprofen 800 mg tablet 800 mg PO TID PRN 07/24/21 07/24/21 History Inpatient Medication List Albuterol (Albuterol 0.083% Nebu Soln 3 Ml Vial) 2.5 mg NEB Q6R SRIDHAR; Protocol Stop: 08/24/21 08:29 Last Admin: 07/26/21 19:30 Dose: 2.5 mg Documented by: [id number] Admin: 07/26/21 13:18 Dose: 2.5 mg Documented by: [id number] Admin: 07/26/21 07:22 Dose: 2.5 mg Documented by: [id number] Admin: 07/26/21 00:02 Dose: 2.5 mg Documented by: [id number] Admin: 07/25/21 20:57 Dose: 2.5 mg Documented by: [id number] Admin: 07/25/21 12:44 Dose: 2.5 mg Documented by: [id number] Admin: 07/25/21 08:40 Dose: Not Given Documented by: [id number] Budesonide (Budesonide 0.5 Mg/2 Ml Vial (Pulmicort)) 0.5 mg NEB BIDR SRIDHAR Stop: 08/25/21 18:59 Last Admin: 07/26/21 21:29 Dose: 0.5 mg Documented by: [id number] Enoxaparin Sodium (Enoxaparin Inj 40 Mg/0.4 Ml Syr) 40 mg SQ Q12H SRIDHAR Stop: 08/24/21 05:59 Last Admin: 07/26/21 16:59 Dose: 40 mg Documented by: [id number] Admin: 07/26/21 05:48 Dose: 40 mg Documented by: [id number] Admin: 07/25/21 23:35 Dose: 40 mg Documented by: [id number] Admin: 07/25/21 06:43 Dose: 40 mg Documented by: [id number] Formoterol Fumarate (Formoterol 20 Mcg/2 Ml Vial) 20 mcg NEB BID SRIDHAR Stop: 08/25/21 20:59 Last Admin: 07/26/21 21:29 Dose: 20 mcg Documented by: [id number] Cefepime HCl 2,000 mg/ Syringe 20 mls @ 5 mls/min IV Q12H SRIDHAR; Protocol Stop: 07/29/21 08:59 Last Admin: 07/26/21 21:50 Dose: 5 mls/min Documented by: [id number] Admin: 07/26/21 09:30 Dose: 5 mls/min Documented by: [id number] Admin: 07/25/21 22:02 Dose: 5 mls/min Documented by: [id number] Admin: 07/25/21 09:16 Dose: 5 mls/min Documented by: [id number] Lactated Ringer's (Lr) 1,000 mls @ 80 mls/hr IV .[id number] SRIDHAR Stop: 08/24/21 08:29 Last Admin: 07/26/21 11:15 Dose: 80 mls/hr Documented by: [id number] Infusion: 07/26/21 11:15 Dose: 0 mls/hr Documented by: [id number] Infusion: 07/26/21 06:01 Dose: 80 mls/hr Documented by: [id number] Infusion: 07/25/21 23:34 Dose: 80 mls/hr Documented by: [id number] Infusion: 07/25/21 22:45 Dose: 0 mls/hr Documented by: [id number] Admin: 07/25/21 20:13 Dose: 80 mls/hr Documented by: [id number] Infusion: 07/25/21 18:21 Dose: 125 mls/hr Documented by: [id number] Admin: 07/25/21 10:21 Dose: 125 mls/hr Documented by: [id number] Infusion: 07/25/21 10:21 Dose: 0 mls/hr Documented by: [id number] Infusion: 07/25/21 09:15 Dose: 999 mls/hr Documented by: [id number] Admin: 07/25/21 08:51 Dose: 125 mls/hr Documented by: [id number] Methylprednisolone 60 mg/ (Syringe) 0.96 mls @ 1.5 mls/min IV Q8H SRIDHAR Stop: 08/24/21 08:59 Last Admin: 07/26/21 16:59 Dose: 1.5 mls/min Documented by: [id number] Admin: 07/26/21 09:45 Dose: 1.5 mls/min Documented by: [id number] Admin: 07/25/21 23:36 Dose: 1.5 mls/min Documented by: [id number] Admin: 07/25/21 17:06 Dose: 1.5 mls/min Documented by: [id number] Admin: 07/25/21 09:17 Dose: 1.5 mls/min Documented by: [id number] Famotidine 20 mg/ Syringe 5 mls @ 2.5 mls/min IV BID SRIDHAR Stop: 08/24/21 08:59 Last Admin: 07/26/21 21:50 Dose: 2.5 mls/min Documented by: [id number] Admin: 07/26/21 09:28 Dose: 2.5 mls/min Documented by: [id number] Admin: 07/25/21 22:02 Dose: 2.5 mls/min Documented by: [id number] Admin: 07/25/21 09:16 Dose: 2.5 mls/min Documented by: [id number] Caspofungin 50 mg/ Sodium (Chloride) 260 mls @ 250 mls/hr IV Q24H SRIDHAR; Protocol Stop: 08/05/21 18:59 Last Infusion: 07/26/21 21:37 Dose: 0 mls/hr Documented by: [id number] Admin: 07/26/21 18:29 Dose: 250 mls/hr Documented by: [id number] Doxycycline Hyclate 100 mg/ (Dextrose) 110 mls @ 50 mls/hr IV Q12H SRIDHAR Stop: 07/29/21 19:29 Last Admin: 07/26/21 21:50 Dose: 50 mls/hr Documented by: [id number] Infusion: 07/26/21 11:42 Dose: 0 mls/hr Documented by: [id number] Admin: 07/26/21 09:30 Dose: 50 mls/hr Documented by: [id number] Infusion: 07/26/21 02:19 Dose: 0 mls/hr Documented by: [id number] Admin: 07/26/21 00:06 Dose: 50 mls/hr Documented by: [id number] Insulin Aspart (Insulin Aspart Per Unit) 0 units SC Q6 SRIDHAR Stop: 08/25/21 00:00 Last Admin: 07/26/21 18:29 Dose: 1 units Documented by: [id number] Cosigned by: [id number] Admin: 07/26/21 12:45 Dose: 1 units Documented by: [id number] Cosigned by: [id number] Admin: 07/26/21 05:49 Dose: 1 units Documented by: [id number] Cosigned by: [id number] Admin: 07/26/21 01:00 Dose: 1 units Documented by: [id number] Cosigned by: [id number] Levothyroxine Sodium (Levothyroxine Sodium 25 Mcg Tablet) 25 mcg PO DAILYBB [facility] Stop: 08/24/21 06:29 Last Admin: 07/26/21 05:49 Dose: Not Given Documented by: [id number] Admin: 07/25/21 06:43 Dose: 25 mcg Documented by: [id number] Miconazole Nitrate (Miconazole Nitrate Powder 43 Gm) 1 appln EXT BID SRIDHAR Stop: 08/24/21 08:59 Last Admin: 07/26/21 21:50 Dose: 1 appln Documented by: [id number] Admin: 07/26/21 09:29 Dose: 1 appln Documented by: [id number] Admin: 07/25/21 23:36 Dose: 1 appln Documented by: [id number] Admin: 07/25/21 10:21 Dose: 1 appln Documented by: [id number] Discontinued Medications Albuterol (Albut/Ipratrop 3mg/0.5mg Neb 3 Ml Vial) 3 ml INH NOW STA Stop: 07/24/21 21:32 Last Admin: 07/24/21 22:05 Dose: 3 ml Documented by: [id number] Albuterol (Albuterol 0.5% Neb Soln 2.5 Mg/0.5 Ml Vial) 2.5 mg NEB Q6R SRIDHAR; Protocol Stop: 08/24/21 07:59 Last Admin: 07/25/21 08:24 Dose: 2.5 mg Documented by: [id number] Cefepime HCl (Cefepime 2,000 Mg/20 Ml Vial) Confirm Administered Dose 2,000 mg .ROUTE .STK-MED ONE Stop: 07/25/21 09:13 Last Admin: 07/25/21 09:14 Dose: Not Given Documented by: [id number] Cefepime HCl (Maxipime) 2,000 mg in 20 mls @ 5 mls/min IV NOW STA; Protocol Stop: 07/24/21 21:47 Last Admin: 07/24/21 22:05 Dose: 5 mls/min Documented by: [id number] Sodium Chloride (Nss 1000ml) 500 mls @ 999 mls/hr IV .Q31M ONE Stop: 07/24/21 22:15 Last Infusion: 07/24/21 22:43 Dose: 0 mls/hr Documented by: [id number] Admin: 07/24/21 22:05 Dose: 999 mls/hr Documented by: [id number] Sodium Chloride (Nss 1000ml) 500 mls @ 999 mls/hr IV .Q31M ONE Stop: 07/24/21 23:24 Last Infusion: 07/25/21 00:47 Dose: 0 mls/hr Documented by: [id number] Admin: 07/24/21 23:51 Dose: 999 mls/hr Documented by: [id number] Sodium Chloride (Nss 1000ml) 500 mls @ 999 mls/hr IV .Q31M ONE Stop: 07/25/21 00:17 Last Infusion: 07/25/21 00:47 Dose: 0 mls/hr Documented by: [id number] Admin: 07/24/21 23:51 Dose: 999 mls/hr Documented by: [id number] Daptomycin 475 mg/ Syringe 9.5 mls @ 4.75 mls/min IV Q24H SRIDHAR; Protocol Stop: 07/29/21 03:59 Last Admin: 07/26/21 04:47 Dose: 4.75 mls/min Documented by: [id number] Admin: 07/25/21 04:36 Dose: 4.75 mls/min Documented by: [id number] Azithromycin 500 mg/ Dextrose 255 mls @ 125 mls/hr IV ONE ONE Stop: 07/25/21 06:32 Last Infusion: 07/25/21 06:41 Dose: 0 mls/hr Documented by: [id number] Admin: 07/25/21 04:37 Dose: 125 mls/hr Documented by: [id number] Sodium Chloride (Nss 1000ml) 500 mls @ 999 mls/hr IV .Q31M ONE Stop: 07/25/21 08:21 Last Infusion: 07/25/21 08:45 Dose: 0 mls/hr Documented by: [id number] Admin: 07/25/21 08:01 Dose: 999 mls/hr Documented by: [id number] Magnesium Sulfate/Dextrose (Magnesium Sulfate / D5w) 1 gm in 100 mls @ 50 mls/hr IV Q2H [facility] Stop: 07/25/21 14:14 Last Infusion: 07/25/21 14:36 Dose: 0 mls/hr Documented by: [id number] Admin: 07/25/21 12:10 Dose: 50 mls/hr Documented by: [id number] Infusion: 07/25/21 12:10 Dose: 50 mls/hr Documented by: [id number] Admin: 07/25/21 10:44 Dose: 50 mls/hr Documented by: [id number] Caspofungin 70 mg/ Sodium (Chloride) 260 mls @ 250 mls/hr IV ONE ONE Stop: 07/25/21 20:17 Last Infusion: 07/25/21 22:18 Dose: 0 mls/hr Documented by: [id number] Admin: 07/25/21 20:15 Dose: 250 mls/hr Documented by: [id number] Insulin Aspart (Insulin Aspart Per Unit) 0 units SC ACHS SRIDHAR Stop: 08/24/21 07:29 Last Admin: 07/25/21 17:05 Dose: Not Given Documented by: [id number] Admin: 07/25/21 11:40 Dose: Not Given Documented by: [id number] Admin: 07/25/21 08:20 Dose: Not Given Documented by: [id number] Ioversol (Optiray 320 125ml) 112 ml IV ONCE ONE Stop: 07/25/21 18:01 Last Admin: 07/25/21 18:01 Dose: 112 ml Documented by: [id number] Description This is a 21 electrode EEG with a single channel dedicated to limited EKG. The electrodes were placed in accordance with the International 10-20 system. REPORT: At the onset of the EEG the patient is in an altered mental state. The background is symmetric. The posterior dominant rhythm is not seen instead the background predominantly consist of diffuse theta activity with some intermixed delta activity. There is a loss of the normal anterior to posterior gradient. Photic stimulation does not induce any abnormalities. No stage II sleep transients are seen. There is occasional generalized sharply contoured waves with triphasic morphology. Interpretation IMPRESSION: This is an abnormal EEG in a patient with altered mentation due to genearlized background slowing with occassional triphasic waves suggestive of a non specific encephalopathy. No epileptifom discharges or electrographic seizures are recorded.
[2021-07-27] MEDS: ALBUTEROL 0.083% NEBU SOLN 3 ML VIAL NEB SCH ×2 (00:12→07:47)
[2021-07-27] MEDS: LACTATED RINGER'S 1,000 ML IV SCH ×2 (00:54→14:40)
[2021-07-27] MEDS: INSULIN ASPART PER UNIT SC SCH ×5 (00:55→21:27)
[2021-07-27] MEDS: methylPREDNISolone 60 MG in SYRINGE 0 ML IV SCH ×3 (00:55→21:30)
[2021-07-27] MEDS: ENOXAPARIN INJ 40 MG/0.4 ML SYR SQ SCH ×2 (06:24→17:07)
[2021-07-27] MEDS: LEVOTHYROXINE SODIUM 25 MCG TABLET PO SCH (06:25)
[2021-07-27] MEDS: FORMOTEROL 20 MCG/2 ML VIAL NEB SCH ×2 (07:40→19:19)
[2021-07-27] MEDS: BUDESONIDE 0.5 MG/2 ML VIAL (PULMICORT) NEB SCH ×2 (07:40→19:19)
[2021-07-27 08:05] LABS: Hematocrit (blood only) 35.2 % (37-47); Hemoglobin 11.7 g/dL (12.0-16.0); Mean Corpuscular Hemoglobin 32.1 pg (25-34); Mean Corpuscular Hgb Conc 33.2 g/dL (32-36); Mean Corpuscular Volume 96.4 fL (80-100); Mean Platelet Volume 12.2 fL (7.4-10.4); Nucleated RBC # (auto) 0.05 K/uL (0-0); Nucleated RBC % (auto) 0.3 %; Platelet Count 103 K/uL (130-400); RDW Coefficient of Variation 16.6 % (11.5-14.5); RDW Standard Deviation 56.4 fL (36.4-46.3); Red Blood Count 3.65 M/uL (4.2-5.4); White Blood Count 17.69 K/uL (4.8-10.8)
[2021-07-27 08:18] LABS: Basophils # (auto) 0.01 K/uL (0-0.2); Basophils % (auto) 0.1 %; Immature Granulocytes # (auto) 0.09 K/uL (0.00-0.02); Immature Granulocytes % (auto) 0.5 %; Lymphocytes % (auto) 5.1 %; Monocytes # (auto) 0.97 K/uL (0.11-0.59); Monocytes % (auto) 5.5 %; Neutrophils # (auto) 15.72 K/uL (1.4-6.5); Neutrophils % (auto) 88.8 %
[2021-07-27 08:27] LABS: Albumin Globulin Ratio 0.9 (0.9-2); Albumin Level 2.8 gm/dl (3.4-5.0); BUN Creatinine Ratio 40.7 (10-20); Bilirubin,Total 0.4 mg/dl (0.2-1.0); Calcium 8.8 mg/dl (8.5-10.1); Creatinine Clr Calc Pharmacy 87.9 ml/min; Est GFR (African American) 87.1 ml/min; Est GFR (Non-African American) 75.2 ml/min; Globulin 3.1 gm/dl (2.5-4.0); Potassium 4.1 mmol/L (3.5-5.1); Total Protein 5.9 gm/dl (6.0-8.3)
[2021-07-27] MEDS: FAMOTIDINE 20 MG in SYRINGE 3 ML IV SCH ×2 (08:40→21:30)
[2021-07-27] MEDS: CEFEPIME 2,000 MG in SYRINGE 0 ML IV SCH ×2 (08:40→21:30)
[2021-07-27] MEDS: MICONAZOLE NITRATE POWDER 43 GM EXT SCH ×2 (08:40→21:31)
--- NOTE | 2021-07-27 09:02 | Cardiology Consultation ---
Date of Consultation July 27, 2021 Assessment & Plan (1) Tachy-rowena syndrome: 1. Tachybradycardia syndrome: On telemetry her rhythm fluctuations are abnormal and heart rate to the low 40s is abnormal given her clinical situation although the heart rate of around 100 may be appropriate. I cannot really tell if she has symptoms, in the future we can try to elucidate that. She does not have any bradycardia sufficient to require pacing and for the most part her heart rate is much higher. Conceivably some of the heart rate variation is due to hypoxia however a lot of the episodes are too brief to be explained by that. It may have something to do with her clinical infection or it may be an unrecognized long-term finding. I would continue to observe, I do not see any role for medications to control her rapid heart rate since it may be appropriate. History of Present Illness Reason for Consultation: Tachybradycardia syndrome Attending Physician: Kiya Presley MD History of Present Illness This is a 66-year-old woman who has a history of hypertension, obesity, diabetes mellitus, asthma as well as multiple sclerosis. She presented to the emergency room on July 24, 2021 with shortness of breath and hypoxia and was tested positive for influenza A. She was also hypothermic. She was admitted, in the [facility] hours of July 25, 2021 she developed hypotension with a blood pressure in the 70-80 systolic range and had decrease in mental status. After a 1-1/2 L bolus of lactated Ringer's her blood pressure improved, however later in the day it dropped into the 80s again. She had worsening of her mental status and she received another bolus. A change in mental status is apparently new for her. She was seen by neurology and was felt to have a metabolic or sepsis related encephalopathy. On telemetry she was observed to have periods of increased heart rate associated closely with periods of slow heart rate. At the time of my evaluation she is in bed on BiPAP and is not very conversational although I did not try to aggressively question her about symptoms. She appears to be in at least moderate respiratory distress and is diaphoretic. Allergies Allergy/AdvReac Type Severity Reaction Status Date / Time codeine AdvReac Mild NAUSEATED Verified 07/24/21 22:09 Home Medications Medication Instructions Recorded Confirmed Type albuterol sulfate 2.5 mg INHALATION DIRECTED PRN 06/25/21 07/24/21 History benazepril 40 mg tablet 40 mg PO DAILY 06/25/21 07/24/21 History fluticasone 100 mcg-salmeterol 50 1 ea INHALATION BID 06/25/21 07/24/21 History mcg/dose blistr powdr for inhalation (Bob Inhub) levothyroxine 25 mcg tablet 25 mcg PO DAILY 06/25/21 07/24/21 History metformin 500 mg tablet 500 mg PO BID 06/25/21 07/24/21 History omeprazole 20 mg capsule,delayed 20 mg PO DAILY 06/25/21 07/24/21 History release amoxicillin 875 mg-potassium 1 tab PO BID 07/24/21 07/24/21 History clavulanate 125 mg tablet ibuprofen 800 mg tablet 800 mg PO TID PRN 07/24/21 07/24/21 History Patient History Medical History Asthma Diabetes GERD (gastroesophageal reflux disease) Hypertension Hypothyroidism Multiple sclerosis Family History Other Family history non-contributory Social History Smoking Status: Unknown if ever smoked Hx Alcohol Use: No (unknown) Hx Substance Use: No (unknown) Preferred Language: Welsh Crap Shooter Required: No Current Living Situation: Spouse Feels Safe at Home: Yes Assistive Devices: Oxygen - Continuous Review of Systems Review of Systems: Unobtainable due to cognitive status Physical Exam Physical Exam: Constitutional: She is awake but not very interactive, she seems to respond to verbal stimuli but does not answer questions verbally. She is in at least moderate respiratory distress. HEENT: Unremarkable wearing BiPAP Neck: No jugular venous distention, carotid pulses are normal and equal bilaterally without bruits. Pulmonary: Diffuse wheezing bilaterally. Cardiac: Regular rhythm with no murmur, gallop or rub. Abdomen: Soft, nontender with normal bowel sounds. Extremities: Thickened legs with +2 pitting edema. Distal pulses not palpable. Neurologic: No focal findings on a very limited exam. Skin: No rash, ecchymoses or petechiae. Results & Data ([facility]) Vital Signs (Past 12 Hours) Vital Signs Temp Pulse Pulse Pulse Resp BP Pulse Ox 07/27/21 08:13 36.3 C L 98 H 20 142/88 H 94 07/27/21 07:42 85 23 95 07/27/21 07:40 85 21 95 07/27/21 07:23 74 07/27/21 04:00 36.3 C L 102 H 20 95/64 L 95 07/27/21 03:10 87 22 94 07/27/21 00:12 99 H 99 H 26 H 92 07/26/21 23:14 36.9 C 92 H 18 102/67 94 07/26/21 21:30 26 H Laboratory Results Cardiac Enzymes 07/27/21 Range/Units 07:48 AST 26 (13-39) U/L CBC 07/27/21 Range/Units 07:48 WBC 17.69 H (4.8-10.8) K/uL RBC 3.65 L (4.2-5.4) M/uL Hgb 11.7 L (12.0-16.0) g/dL Hct 35.2 L (37-47) % Plt Count 103 L (130-400) K/uL Neut # (Auto) 15.72 H (1.4-6.5) K/uL Lymph # (Auto) 0.90 L (1.2-3.4) K/uL [place] # (Auto) 0.97 H (0.11-0.59) K/uL Eos # (Auto) 0.00 (0-0.5) K/uL Baso # (Auto) 0.01 (0-0.2) K/uL Comprehensive Metabolic Panel 07/27/21 Range/Units 07:48 Sodium 143 (136-145) mmol/L Potassium 4.1 (3.5-5.1) mmol/L Chloride 114 H (98-107) mmol/L Carbon Dioxide 21 (21-32) mmol/L BUN 33 H (6-23) mg/dl Creatinine 0.81 (0.6-1.2) mg/dl Glucose 161 H (70-99) mg/dl Calcium 8.8 (8.5-10.1) mg/dl AST 26 (13-39) U/L ALT 27 (7-52) U/L Alkaline Phosphatase 115 H (34-104) U/L Total Protein 5.9 L (6.0-8.3) gm/dl Albumin 2.8 L (3.4-5.0) gm/dl Intake and Output 07/26/21 07/27/21 07/27/21 22:59 06:59 14:59 Intake Total 260 / 8844.590 4018 / 1761.333 Output Total 500 / 1125 275 / 1125 Balance -240 / 636.333 835 / 636.333 Intake: IV 260 / 9062.757 7218 / 1761.333 Caspofungin 50 mg In Sodium 260 / 260 Chloride 0.9% 250 ml @ 250 mls/ hr IV Q24H [facility] Rx#:[id number] Doxycycline Hyclate 100 mg In 110 / 220 Dextrose 5% 100 ml @ 50 mls/hr IV Q12H [facility] Rx#:[id number] Lactated Ringer's 1,000 ml @ 80 1000 / 1281.333 mls/hr IV .[id number] [facility] Rx#: [id number] Output: Urine Amount (Catheter) 500 / 1125 275 / 1125 Dangelo/Indwelling 500 / 1125 275 / 1125 Other: Other Intake Source npo Weight 139 kg Weight Measurement Method Built in [facility] Patient Weight 07/28/21 06:59 Weight 139 kg Diagnostic Findings Telemetry: Telemetry was reviewed in detail. Her rhythm appears to be sinus throughout with significant heart rate variations, sometimes as low as 40 bpm (30 bpm reported by telemetry but I could not find that) often for very brief periods of time such as several beats, at other times around 100 bpm. No significant pauses, no atrial fibrillation. PG Care Time/CCT Total # of Minutes Spent Total Time Spent with Patient: Total time spent is greater than 50% in coordination of care (as documented) at patient's floor/unit and/or counseling patient: Coding Level of Care Code 09191 Initial Inpt Care Lvl 3 Diagnoses Tachy-rowena syndrome I49.5
[2021-07-27] MEDS: DOXYCYCLINE HYCLATE 100 MG in DEXTROSE 5% 100 ML IV SCH ×2 (09:20→21:31)
--- NOTE | 2021-07-27 09:24 | Pulmonology Progress Note ---
Date of Service July 27, 2021 Assessment & Plan (1) Atelectasis: (2) Influenza A: (3) Asthma: Plan: Impression: 66-year-old morbidly obese female admitted with influenza A. She had some atelectasis on her CT scan. Blood gases never demonstrated hypercarbia. Pulmonary status remains stable Recommendations: 1. Influenza A: Management is supportive at this point time. At this point time, I do not think Tamiflu would be beneficial. Is designed to shorten symptoms and has not been shown to change mortality. 2. History of asthma: May be aggravated by influenza A. Would continue budesonide and Pulmicort neb treatments. can likely rapidly wean steroids to PO when more awake and alert. 3. Basilar atelectasis: Likely secondary to the patient's morbid obesity. CPAP or BiPAP is not typically recommended to treat dependent atelectasis. She has no evidence of hypercarbic respiratory failure. Would favor transitioning to nasal cannula, getting the patient sitting upright in bed is much as possible. Once her mental status resolves, consideration for incentive spirometry and/or flutter valve might be appropriate. If the patient continues to have issues with pulmonary toilet, NT suctioning might be considered. Aggressive pulmonary toilet recommended 4. Hypoxemia: Continue supplemental oxygen titrated to keep saturations at or above 88% She appears stable from a pulmonary standpoint. Available to see if needed. Call if questions Admission and Anticipated Discharge Date Admission Date: July 25, 2021 Subjective Patient seen and examined. EMR reviewed. She is more awake today but continues to demonstrate lethargy. She is still on CPAP. She is able to open her eyes and vocalize to some degree. She continues to have rhonchorous respirations Review of Systems Review of Systems: Unobtainable due to reduced consciousness Physical Exam Constitutional: + morbidly obese and + lethargic; no acute distress Neck: trachea midline, no thyromegaly Respiratory: no respiratory distress, no labored breathing and not tachypneic Auscultation: + rhonchi Positive airway pressure in place Cardiovascular: RRR, no murmur, no edema Gastrointestinal (Abdomen): normal bowel sounds, soft, nontender, no hepatosplenomegaly Musculoskeletal: Extremities: extremities normal to inspection Skin: no rashes, warm and dry Neurologic: Able to open eyes to command and tries to vocalize. Lymphatic: no cervical lymphadenopathy Results & Data Results & Data ([facility]) Vital Signs (Past 12 Hours) Vital Signs Temp Pulse Pulse Pulse Resp BP Pulse Ox 07/27/21 08:13 36.3 C L 98 H 20 142/88 H 94 07/27/21 07:42 85 23 95 07/27/21 07:40 85 21 95 07/27/21 07:23 74 07/27/21 04:00 36.3 C L 102 H 20 95/64 L 95 07/27/21 03:10 87 22 94 07/27/21 00:12 99 H 99 H 26 H 92 07/26/21 23:14 36.9 C 92 H 18 102/67 94 07/26/21 21:30 26 H Laboratory Results 07/27/21 07:48 07/27/21 07:48 PG Care Time/CCT Total # of Minutes Spent Total Time Spent with Patient: Total time spent is greater than 50% in coordination of care (as documented) at patient's floor/unit and/or counseling patient: Coding Level of Care Code 60609 Subseq Hosp Care Lvl 2 Diagnoses Atelectasis J98.11 Influenza A J10.1 Asthma J45.909
--- NOTE | 2021-07-27 11:53 | Hospitalist Progress Note ---
Date of Service July 27, 2021 Assessment & Plan (1) Encephalopathy acute: Plan: 66yo female with history of MS, HTN, DM and Asthma presenting with several weeks of progressive dyspnea, acutely worsened on day of amdission. Patient hypoxic by EMS to 87% on room air which improved with supplemental O2. Coarse breath sounds with end-expiratory wheezing. Labs are significant for POSITIVE INFLUENZA A, mild leukocytosis on admission, was hypothermic, hypotensive on arrival With PNA on CXR, FLu A, UA contaminated with fungus, does have Jazzmine intertrigo so is at risk for fungemia. 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, no h/o drug abuse EEG only with encephalopathy, no seizure activity Neuro consult obtained and suggested infectious encephalopathy, not related to MS, and recommends to continue supportive care Was completely obtunded for 36 hours with GCS was 7 for 2 days with some minimal movement to pain at times, but was protecting her airway, and was continued on CPAP on 07/27 mid day is finally awake and talking, following commands, moving all 4 extremities but still a bit lethargic, oriented to person and to "hospital." Overall significantly improved on 07/27 -will consult Speech to assess swallowing capabilities and attempt clear liquids today now that she is awake-has a lot of gurgling and difficulty managing her secreations -asked nursing to get her sitting upright and will have PT/OT come around today to mobilize -continued stay on PCU -continue maintenance IVFs but decrease rate down to 50mL as she is already edematous at baseline and BPs are now normal-dc IVFs once taking adequate po -continue broad spectrum abx as below for PNA, UTI, fungemia, skin source -continue supportive care -weaned off CPAP to NC to keep POx>92% (2) Septic shock: Plan: BP was in 70s-80s systolic shortly after admission persistent for 24 hrs but responded to crystalloid boluses Never required vasopressors Typically has HTN and takes benazepril as an outpt Was hypothermia first 24 hrs and temp improved with roel hugger, treatment with broad spectrum abx Leukocytosis increased likely due to steroids but was 11 on admission follow CBC, CMP, Mag, Phos continue Cefepime, doxy, Caspofungin to cover for PNA including Gram neg PNA, MRSA, and fungal infection given extensive Jazzmine intertrigo underneath pannus Fungitell and fungal cultures pending [id number] Ur cx with Jazzmine -Sputum cx sent 07/27 and pending (3) Influenza A: Plan: Uncertain when diagnosed but having sxs about a week or so prior to admission -Monitor, supportive care. no benefit to Tamiflu at this point -droplet precautions (4) Pneumonia: Plan: on CXR diffuse rhonchi and wheezing with known Influenza A MRSA swab neg cover for secondary bacterial PNA despite neg PCT -continue Cefepime, doxy (azithro initially given but switched to doxy to cover MRSA and in case of tick borne illness) -supplemental O2 and CPAP support to keep POx> 88% -with h/o asthma and had significant wheezing on arrival--> continue IV steroids and scheduled Albuterol nebs -with thick sputum suctioned from lungs with some blood overnight -check sputum culture -check Legionella ag -PULM consult placed -appreciate any further recommedations (5) Hypoxia: Plan: secondary to PNA, asthma exacerbation continue CPAP, O2 as above (6) Hypothermia: Plan: Patient hypothermic on arrival to 32.1. She denies exposure. Warming blanket placed. 2/2 sepsis? MS flare? 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 She has a nebulizer at home, no home O2 -continue albuterol nebs, steroids -decrease steroids to Solu Medrol 60mg IV q12h change to po prednisone when reliably taking po (9) Hypertension: Plan: with septic shock -continue to hold Benazepril -Continue to monitor (10) Diabetes: Plan: continue Novolog, accuchecks (11) Metabolic acidosis: Plan: as above, now resolved, unclear of cause as lactates all normal? ASA level negative (12) Hypomagnesemia: Plan: replaced and resolved follow Mag (13) Peripheral edema: Plan: chronic as per likely lymphedema ok to continue maintenance fluids with close observation (14) Multiple sclerosis: Plan: no treatment since 2011, followed previously with Dr. Fox at baseline can stand with assistance and pivot from wheelchair to recliner where she sleeps, can pivot into shower chair and shower heself, can cook from wheelchair Mental status perfectly clear typically Awaiting Neuro consult (15) Thrombocytopenia: Plan: platelets mildly low at 103 but stable from yesterday Baseline plts normal likely from sepsis follow CBC (16) Pancreatitis: Plan: CT abd/epl mentions some stranding around pancreas check lipase-only mildly elevated no ttp of abdomen now that she is awake denies abd pain LFTs normal GB appears normal, no CBD dilatation (17) Hypothyroidism: Plan: TSH here mildly elevated at 6 has not been ableto take po LT4 for 2 days give 1 dose IV LT$ today and resume po for tomorrow if able to swallow pills (18) GERD (gastroesophageal reflux disease): Plan: continue IV PPI until taking po (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 Cardiology consulted for further eval Plan: DVT proph-Lovenox Dispo-continued stay in PCU Prognosis still guarded but improving today Discussed care with on phone Admission and Anticipated Discharge Date Admission Date: July 25, 2021 Subjective Pt woke up today and is responding to my questions, still a bit lethargic but following commands and overall much improved. SHe was weaned off CPAP to NC, still being suctioned for thick sputum. She states "I am wheezy." Does not have much of an appetite. Denies CP or SOB, denies abdominal pain Says she remembers me from the first morning she was here and smiles. Tele with alternating possible ST? 90s-120s with SB in the 40s--> question if tachycardia is Aflutter? Review of Systems Review of Systems: All systems reviewed & are unremarkable except as noted in HPI & below Physical Exam Constitutional: WD/WN, vitals as above + morbidly obese Eyes: PERRL, conjunctivae normal, anicteric sclerae (with some crusting of eyelids) ENMT: with crusting and dry skin on lips, MM dry Neck: trachea midline, no thyromegaly Respiratory: normal respiratory effort and + cough Auscultation: + rhonchi (bilat but improved from previous) and + wheezes (mild, improved from previous) Cardiovascular: Rate/Rhythm: regular rate and regular rhythm Heart Sounds: no murmur Extremities: + edema (3+ pitting edema LEs bilat) Chest (Breasts): Chest: normal inspection of chest Gastrointestinal (Abdomen): Inspection/Auscultation: + significant pannus and + visible herniation (large, right lower to mid abdomen); + abdomen abnormal to inspection Percussion/Palpation: abdomen soft; abdomen nontender Musculoskeletal: Extremities: + extremities abnormal to inspection, no cyanosis and no clubbing Skin: + rash (severe Jazzmine intertrigo underneath abd pannus and upper thighs, groins) Neurologic: CN's II-XI intact bilaterally, moves all extremities, awake and + confused (mildly); no focal motor deficits sensation intact to light touch throughout upper and lower extremities Genitourinary: Dangelo with clear yellow urine Lymphatic: + lymphedema (bilat LEs) Results & Data Results & Data ([facility]) Vital Signs (Past 12 Hours) Vital Signs Temp Pulse Pulse Pulse Resp BP Pulse Ox 07/27/21 09:48 103 H 32 H 95 07/27/21 08:13 36.3 C L 98 H 20 142/88 H 94 07/27/21 07:42 85 23 95 07/27/21 07:40 85 21 95 07/27/21 07:23 74 07/27/21 04:00 36.3 C L 102 H 20 95/64 L 95 07/27/21 03:10 87 22 94 07/27/21 00:12 99 H 99 H 26 H 92 Laboratory Results 07/27/21 07/27/21 07/27/21 Range/Units 07:48 07:48 06:16 WBC 17.69 H (4.8-10.8) K/uL RBC 3.65 L (4.2-5.4) M/uL Hgb 11.7 L (12.0-16.0) g/dL Hct 35.2 L (37-47) % MCV 96.4 (80-100) fL MCH 32.1 (25-34) pg MCHC 33.2 (32-36) g/dL RDW Std Deviation 56.4 H (36.4-46.3) fL RDW Coeff of Kaia 16.6 H (11.5-14.5) % Plt Count 103 L (130-400) K/uL MPV 12.2 H (7.4-10.4) fL Immature Gran % (Auto) 0.5 % Neut % (Auto) 88.8 % Lymph % (Auto) 5.1 % Wharton % (Auto) 5.5 % Eos % (Auto) 0.0 % Baso % (Auto) 0.1 % Neut # (Auto) 15.72 H (1.4-6.5) K/uL Lymph # (Auto) 0.90 L (1.2-3.4) K/uL Wharton # (Auto) 0.97 H (0.11-0.59) K/uL Eos # (Auto) 0.00 (0-0.5) K/uL Baso # (Auto) 0.01 (0-0.2) K/uL Immature Gran # (Auto) 0.09 H (0.00-0.02) K/uL Absolute Nucleated RBC 0.05 H (0-0) K/uL Nucleated RBC % (auto) 0.3 % ESR (0-30) mm/hr ABG pH ABG pCO2 ABG pO2 ABG HCO3 ABG O2 Saturation ABG Base Excess Abram Test Barometric Pressure Oxygen Given Sodium 143 (136-145) mmol/L Potassium 4.1 (3.5-5.1) mmol/L Chloride 114 H (98-107) mmol/L Carbon Dioxide 21 (21-32) mmol/L Anion Gap 8 (3-11) BUN 33 H (6-23) mg/dl Creatinine 0.81 (0.6-1.2) mg/dl Est Cr Clr Drug Dosing 87.9 ml/min Est GFR ( Amer) 87.1 ml/min Est GFR (Non-Af Amer) 75.2 ml/min BUN/Creatinine Ratio 40.7 H (10-20) Glucose 161 H (70-99) mg/dl POC Glucose 165 H (70-99) mg/dl Lactate (0.4-2.0) mmol/L Calcium 8.8 (8.5-10.1) mg/dl Phosphorus 2.0 L D (2.5-4.9) mg/dl Magnesium 2.0 (1.7-2.4) mg/dl Total Bilirubin 0.4 (0.2-1.0) mg/dl AST 26 (13-39) U/L ALT 27 (7-52) U/L Alkaline Phosphatase 115 H (34-104) U/L C-Reactive Protein (0-5.00) mg/dl Total Protein 5.9 L (6.0-8.3) gm/dl Albumin 2.8 L (3.4-5.0) gm/dl Globulin 3.1 (2.5-4.0) gm/dl Albumin/Globulin Ratio 0.9 (0.9-2) Lipase (11-82) U/L Salicylates (3.0-30) mg/dl Urine Opiates Screen (Neg) Ur Methadone, Qual (Neg) Urine Barbiturates (Neg) Ur Phencyclidine (PCP) (Neg) U Amphetamin/Meth Scrn (Neg) MDMA (Ecstasy) Screen (Neg) U Benzodiazepines Scrn (Neg) Ur Cocaine Metabolite (Neg) U Marijuana (THC) Screen (Neg) Urine Legionella Ag 07/27/21 07/26/21 07/26/21 Range/Units 00:13 18:18 17:30 WBC (4.8-10.8) K/uL RBC (4.2-5.4) M/uL Hgb (12.0-16.0) g/dL Hct (37-47) % MCV (80-100) fL MCH (25-34) pg MCHC (32-36) g/dL RDW Std Deviation (36.4-46.3) fL RDW Coeff of Kaia (11.5-14.5) % Plt Count (130-400) K/uL MPV (7.4-10.4) fL Immature Gran % (Auto) % Neut % (Auto) % Lymph % (Auto) % Wharton % (Auto) % Eos % (Auto) % Baso % (Auto) % Neut # (Auto) (1.4-6.5) K/uL Lymph # (Auto) (1.2-3.4) K/uL Wharton # (Auto) (0.11-0.59) K/uL Eos # (Auto) (0-0.5) K/uL Baso # (Auto) (0-0.2) K/uL Immature Gran # (Auto) (0.00-0.02) K/uL Absolute Nucleated RBC (0-0) K/uL Nucleated RBC % (auto) % ESR (0-30) mm/hr ABG pH ABG pCO2 ABG pO2 ABG HCO3 ABG O2 Saturation ABG Base Excess Abram Test Barometric Pressure Oxygen Given Sodium (136-145) mmol/L Potassium (3.5-5.1) mmol/L Chloride (98-107) mmol/L Carbon Dioxide (21-32) mmol/L Anion Gap (3-11) BUN (6-23) mg/dl Creatinine (0.6-1.2) mg/dl Est Cr Clr Drug Dosing ml/min Est GFR ( Amer) ml/min Est GFR (Non-Af Amer) ml/min BUN/Creatinine Ratio (10-20) Glucose (70-99) mg/dl POC Glucose 180 H 163 H (70-99) mg/dl Lactate (0.4-2.0) mmol/L Calcium (8.5-10.1) mg/dl Phosphorus (2.5-4.9) mg/dl Magnesium (1.7-2.4) mg/dl Total Bilirubin (0.2-1.0) mg/dl AST (13-39) U/L ALT (7-52) U/L Alkaline Phosphatase (34-104) U/L C-Reactive Protein (0-5.00) mg/dl Total Protein (6.0-8.3) gm/dl Albumin (3.4-5.0) gm/dl Globulin (2.5-4.0) gm/dl Albumin/Globulin Ratio (0.9-2) Lipase (11-82) U/L Salicylates (3.0-30) mg/dl Urine Opiates Screen (Neg) Ur Methadone, Qual (Neg) Urine Barbiturates (Neg) Ur Phencyclidine (PCP) (Neg) U Amphetamin/Meth Scrn (Neg) MDMA (Ecstasy) Screen (Neg) U Benzodiazepines Scrn (Neg) Ur Cocaine Metabolite (Neg) U Marijuana (THC) Screen (Neg) Urine Legionella Ag Pending 07/26/21 07/26/21 07/26/21 Range/Units 17:30 13:43 13:43 WBC (4.8-10.8) K/uL RBC (4.2-5.4) M/uL Hgb (12.0-16.0) g/dL Hct (37-47) % MCV (80-100) fL MCH (25-34) pg MCHC (32-36) g/dL RDW Std Deviation (36.4-46.3) fL RDW Coeff of Kaia (11.5-14.5) % Plt Count (130-400) K/uL MPV (7.4-10.4) fL Immature Gran % (Auto) % Neut % (Auto) % Lymph % (Auto) % Wharton % (Auto) % Eos % (Auto) % Baso % (Auto) % Neut # (Auto) (1.4-6.5) K/uL Lymph # (Auto) (1.2-3.4) K/uL Wharton # (Auto) (0.11-0.59) K/uL Eos # (Auto) (0-0.5) K/uL Baso # (Auto) (0-0.2) K/uL Immature Gran # (Auto) (0.00-0.02) K/uL Absolute Nucleated RBC (0-0) K/uL Nucleated RBC % (auto) % ESR (0-30) mm/hr ABG pH 7.38 ABG pCO2 36 ABG pO2 97 H ABG HCO3 21 ABG O2 Saturation 98.0 H ABG Base Excess -3.7 Abram Test Pos Barometric Pressure 728.0 Oxygen Given 4L Sodium (136-145) mmol/L Potassium (3.5-5.1) mmol/L Chloride (98-107) mmol/L Carbon Dioxide (21-32) mmol/L Anion Gap (3-11) BUN (6-23) mg/dl Creatinine (0.6-1.2) mg/dl Est Cr Clr Drug Dosing ml/min Est GFR ( Amer) ml/min Est GFR (Non-Af Amer) ml/min BUN/Creatinine Ratio (10-20) Glucose (70-99) mg/dl POC Glucose (70-99) mg/dl Lactate (0.4-2.0) mmol/L Calcium (8.5-10.1) mg/dl Phosphorus (2.5-4.9) mg/dl Magnesium (1.7-2.4) mg/dl Total Bilirubin (0.2-1.0) mg/dl AST (13-39) U/L ALT (7-52) U/L Alkaline Phosphatase (34-104) U/L C-Reactive Protein (0-5.00) mg/dl Total Protein (6.0-8.3) gm/dl Albumin (3.4-5.0) gm/dl Globulin (2.5-4.0) gm/dl Albumin/Globulin Ratio (0.9-2) Lipase (11-82) U/L Salicylates < 3.0 L (3.0-30) mg/dl Urine Opiates Screen Neg (Neg) Ur Methadone, Qual Neg (Neg) Urine Barbiturates Neg (Neg) Ur Phencyclidine (PCP) Neg (Neg) U Amphetamin/Meth Scrn Neg (Neg) MDMA (Ecstasy) Screen Neg (Neg) U Benzodiazepines Scrn Neg (Neg) Ur Cocaine Metabolite Neg (Neg) U Marijuana (THC) Screen Neg (Neg) Urine Legionella Ag 07/26/21 07/26/21 07/26/21 Range/Units 13:02 13:02 13:02 WBC (4.8-10.8) K/uL RBC (4.2-5.4) M/uL Hgb (12.0-16.0) g/dL Hct (37-47) % MCV (80-100) fL MCH (25-34) pg MCHC (32-36) g/dL RDW Std Deviation (36.4-46.3) fL RDW Coeff of Kaia (11.5-14.5) % Plt Count (130-400) K/uL MPV (7.4-10.4) fL Immature Gran % (Auto) % Neut % (Auto) % Lymph % (Auto) % Wharton % (Auto) % Eos % (Auto) % Baso % (Auto) % Neut # (Auto) (1.4-6.5) K/uL Lymph # (Auto) (1.2-3.4) K/uL Wharton # (Auto) (0.11-0.59) K/uL Eos # (Auto) (0-0.5) K/uL Baso # (Auto) (0-0.2) K/uL Immature Gran # (Auto) (0.00-0.02) K/uL Absolute Nucleated RBC (0-0) K/uL Nucleated RBC % (auto) % ESR 66 H (0-30) mm/hr ABG pH ABG pCO2 ABG pO2 ABG HCO3 ABG O2 Saturation ABG Base Excess Abram Test Barometric Pressure Oxygen Given Sodium (136-145) mmol/L Potassium (3.5-5.1) mmol/L Chloride (98-107) mmol/L Carbon Dioxide (21-32) mmol/L Anion Gap (3-11) BUN (6-23) mg/dl Creatinine (0.6-1.2) mg/dl Est Cr Clr Drug Dosing ml/min Est GFR ( Amer) ml/min Est GFR (Non-Af Amer) ml/min BUN/Creatinine Ratio (10-20) Glucose (70-99) mg/dl POC Glucose (70-99) mg/dl Lactate 0.5 (0.4-2.0) mmol/L Calcium (8.5-10.1) mg/dl Phosphorus (2.5-4.9) mg/dl Magnesium (1.7-2.4) mg/dl Total Bilirubin (0.2-1.0) mg/dl AST (13-39) U/L ALT (7-52) U/L Alkaline Phosphatase (34-104) U/L C-Reactive Protein 13.14 H (0-5.00) mg/dl Total Protein (6.0-8.3) gm/dl Albumin (3.4-5.0) gm/dl Globulin (2.5-4.0) gm/dl Albumin/Globulin Ratio (0.9-2) Lipase 373 H (11-82) U/L Salicylates (3.0-30) mg/dl Urine Opiates Screen (Neg) Ur Methadone, Qual (Neg) Urine Barbiturates (Neg) Ur Phencyclidine (PCP) (Neg) U Amphetamin/Meth Scrn (Neg) MDMA (Ecstasy) Screen (Neg) U Benzodiazepines Scrn (Neg) Ur Cocaine Metabolite (Neg) U Marijuana (THC) Screen (Neg) Urine Legionella Ag 07/26/21 Range/Units 13:02 WBC (4.8-10.8) K/uL RBC (4.2-5.4) M/uL Hgb (12.0-16.0) g/dL Hct (37-47) % MCV (80-100) fL MCH (25-34) pg MCHC (32-36) g/dL RDW Std Deviation (36.4-46.3) fL RDW Coeff of Kaia (11.5-14.5) % Plt Count (130-400) K/uL MPV (7.4-10.4) fL Immature Gran % (Auto) % Neut % (Auto) % Lymph % (Auto) % Wharton % (Auto) % Eos % (Auto) % Baso % (Auto) % Neut # (Auto) (1.4-6.5) K/uL Lymph # (Auto) (1.2-3.4) K/uL Wharton # (Auto) (0.11-0.59) K/uL Eos # (Auto) (0-0.5) K/uL Baso # (Auto) (0-0.2) K/uL Immature Gran # (Auto) (0.00-0.02) K/uL Absolute Nucleated RBC (0-0) K/uL Nucleated RBC % (auto) % ESR (0-30) mm/hr ABG pH Cancelled ABG pCO2 Cancelled ABG pO2 Cancelled ABG HCO3 Cancelled ABG O2 Saturation Cancelled ABG Base Excess Cancelled Abram Test Cancelled Barometric Pressure Cancelled Oxygen Given Cancelled Sodium (136-145) mmol/L Potassium (3.5-5.1) mmol/L Chloride (98-107) mmol/L Carbon Dioxide (21-32) mmol/L Anion Gap (3-11) BUN (6-23) mg/dl Creatinine (0.6-1.2) mg/dl Est Cr Clr Drug Dosing ml/min Est GFR ( Amer) ml/min Est GFR (Non-Af Amer) ml/min BUN/Creatinine Ratio (10-20) Glucose (70-99) mg/dl POC Glucose (70-99) mg/dl Lactate (0.4-2.0) mmol/L Calcium (8.5-10.1) mg/dl Phosphorus (2.5-4.9) mg/dl Magnesium (1.7-2.4) mg/dl Total Bilirubin (0.2-1.0) mg/dl AST (13-39) U/L ALT (7-52) U/L Alkaline Phosphatase (34-104) U/L C-Reactive Protein (0-5.00) mg/dl Total Protein (6.0-8.3) gm/dl Albumin (3.4-5.0) gm/dl Globulin (2.5-4.0) gm/dl Albumin/Globulin Ratio (0.9-2) Lipase (11-82) U/L Salicylates (3.0-30) mg/dl Urine Opiates Screen (Neg) Ur Methadone, Qual (Neg) Urine Barbiturates (Neg) Ur Phencyclidine (PCP) (Neg) U Amphetamin/Meth Scrn (Neg) MDMA (Ecstasy) Screen (Neg) U Benzodiazepines Scrn (Neg) Ur Cocaine Metabolite (Neg) U Marijuana (THC) Screen (Neg) Urine Legionella Ag PG Care Time/CCT Total # of Minutes Spent Total Time Spent with Patient: Total time spent is greater than 50% in coordination of care (as documented) at patient's floor/unit and/or counseling patient: Coding Level of Care Code 16894 Subseq Hosp Care Lvl 3 Diagnoses Encephalopathy acute G93.40 Septic shock A41.9; R65.21 Influenza A J10.1 Pneumonia J18.9 Laterality: left Lung location: lower lobe of lung Pneumonia type: due to unspecified organism Hypoxia R09.02 Hypothermia T68.XXXA Encounter type: initial encounter Fungal dermatitis B36.9 Asthma J45.909 Hypertension I10 Diabetes E11.9 Metabolic acidosis E87.2 Hypomagnesemia E83.42 Peripheral edema R60.9 Multiple sclerosis G35 Thrombocytopenia D69.6 Pancreatitis K85.90 Hypothyroidism E03.9 GERD (gastroesophageal reflux disease) K21.9 Tachy-rowena syndrome I49.5 (1) Hypothermia Encounter type: initial encounter Qualified Code(s): T68.XXXA - Hypothermia, initial encounter (2) Pneumonia Laterality: left Lung location: lower lobe of lung Pneumonia type: due to unspecified organism Qualified Code(s): J18.9 - Pneumonia, unspecified organism
[2021-07-27] MEDS ORDERED: LEVOTHYROXINE SODIUM 25 MCG in SYRINGE 0 ML IV ONE (12:00)
[2021-07-27] MEDS ORDERED: ALBUTEROL 0.083% NEBU SOLN 3 ML VIAL NEB PRN (12:28)
[2021-07-27] MEDS: CASPOFUNGIN 50 MG in SODIUM CHLORIDE 0.9% 250 ML IV SCH (18:17)
[2021-07-28] MEDS: ENOXAPARIN INJ 40 MG/0.4 ML SYR SQ SCH ×2 (05:47→17:05)
[2021-07-28] MEDS: LEVOTHYROXINE SODIUM 25 MCG TABLET PO SCH (05:48)
[2021-07-28 06:49] LABS: Hematocrit (blood only) 36.8 % (37-47); Hemoglobin 12.2 g/dL (12.0-16.0); Mean Corpuscular Hemoglobin 31.8 pg (25-34); Mean Corpuscular Hgb Conc 33.2 g/dL (32-36); Mean Corpuscular Volume 95.8 fL (80-100); Mean Platelet Volume 12.3 fL (7.4-10.4); Nucleated RBC # (auto) 0.04 K/uL (0-0); Nucleated RBC % (auto) 0.2 %; Platelet Count 96 K/uL (130-400); RDW Coefficient of Variation 16.6 % (11.5-14.5); RDW Standard Deviation 55.9 fL (36.4-46.3); Red Blood Count 3.84 M/uL (4.2-5.4)
[2021-07-28 07:03] LABS: Basophils # (auto) 0.02 K/uL (0-0.2); Basophils % (auto) 0.1 %; Immature Granulocytes # (auto) 0.13 K/uL (0.00-0.02); Immature Granulocytes % (auto) 0.8 %; Lymphocytes # (auto) 1.04 K/uL (1.2-3.4); Lymphocytes % (auto) 6.7 %; Monocytes # (auto) 1.03 K/uL (0.11-0.59); Monocytes % (auto) 6.6 %; Neutrophils # (auto) 13.28 K/uL (1.4-6.5); Neutrophils % (auto) 85.8 %
[2021-07-28] MEDS: FORMOTEROL 20 MCG/2 ML VIAL NEB SCH ×2 (07:15→19:21)
[2021-07-28] MEDS: BUDESONIDE 0.5 MG/2 ML VIAL (PULMICORT) NEB SCH ×2 (07:15→19:21)
[2021-07-28 07:16] LABS: Albumin Globulin Ratio 0.9 (0.9-2); Albumin Level 2.9 gm/dl (3.4-5.0); BUN Creatinine Ratio 40.8 (10-20); Bilirubin,Total 0.3 mg/dl (0.2-1.0); Calcium 8.9 mg/dl (8.5-10.1); Creatinine Clr Calc Pharmacy 99.8 ml/min; Est GFR (African American) 102.2 ml/min; Est GFR (Non-African American) 88.1 ml/min; Globulin 3.2 gm/dl (2.5-4.0); Phosphorus 2.1 mg/dl (2.5-4.9); Potassium 4.3 mmol/L (3.5-5.1); Total Protein 6.1 gm/dl (6.0-8.3)
[2021-07-28] MEDS: INSULIN ASPART PER UNIT SC SCH ×4 (08:06→21:09)
[2021-07-28] MEDS: CEFEPIME 2,000 MG in SYRINGE 0 ML IV SCH ×2 (08:06→21:10)
[2021-07-28] MEDS: MICONAZOLE NITRATE POWDER 43 GM EXT SCH ×2 (08:06→21:10)
[2021-07-28] MEDS: methylPREDNISolone 60 MG in SYRINGE 0 ML IV SCH (08:06)
[2021-07-28] MEDS: FAMOTIDINE 20 MG in SYRINGE 3 ML IV SCH ×2 (08:06→21:10)
[2021-07-28] MEDS: DOXYCYCLINE HYCLATE 100 MG in DEXTROSE 5% 100 ML IV SCH ×2 (10:19→21:11)
--- NOTE | 2021-07-28 10:46 | Pulmonology Progress Note ---
Date of Service July 28, 2021 Assessment & Plan (1) Atelectasis: (2) Influenza A: (3) Asthma: Plan: Impression: 66-year-old morbidly obese female admitted with influenza A. She had some atelectasis on her CT scan. Blood gases never demonstrated hypercarbia. Pulmonary status remains stable Recommendations: 1. Influenza A: Management is supportive at this point time. At this point time, I do not think Tamiflu would be beneficial. Is designed to shorten symptoms and has not been shown to change mortality. 2. History of asthma: May be aggravated by influenza A. Would continue budesonide and Pulmicort neb treatments. Okay to transition to prednisone 40 mg a day for 5 days then discontinue. Review of the patient's electronic medical record revealed that her spirometry was normal back in 2013. Outpatient repeat PFTs may be appropriate as I am not entirely sure the patient has asthma at this point in time. Wheezing is relatively common with influenza and may not reflect a bronchospastic disorder. 3. Basilar atelectasis: Continue pulmonary toilet with flutter valve and incentive spirometry. Do not think the patient requires vest therapy currently 4. Hypoxemia: Continue supplemental oxygen titrated to keep saturations at or above 88%. Out of bed to chair as much as tolerated. Ambulation if possible with the patient's underlying diagnosis of MS. She appears significantly improved from a pulmonary standpoint. We will sign off at this point time. Please call us if we can be of additional assistance Admission and Anticipated Discharge Date Admission Date: July 25, 2021 Subjective Patient awake and alert sitting up in a wheelchair. She is slightly confused but mental status is markedly better than yesterday. She does not report any breathing issues. She denies chest pain cough or sputum production. Review of Systems Review of Systems: All systems reviewed & are unremarkable except as noted in Subjective Physical Exam Constitutional: WD/WN, vitals as above + morbidly obese Eyes: PERRL, conjunctivae normal, anicteric sclerae (with some crusting of eyelids) ENMT: with crusting and dry skin on lips, MM dry Neck: trachea midline, no thyromegaly Respiratory: normal respiratory effort and + cough Auscultation: + rhonchi (bilat but improved from previous) and + wheezes (mild, improved from previous) Cardiovascular: Rate/Rhythm: regular rate and regular rhythm Heart Sounds: no murmur Extremities: + edema (3+ pitting edema LEs bilat) Chest (Breasts): Chest: normal inspection of chest Gastrointestinal (Abdomen): Inspection/Auscultation: + significant pannus and + visible herniation (large, right lower to mid abdomen); + abdomen abnormal to inspection Percussion/Palpation: abdomen soft; abdomen nontender Musculoskeletal: Extremities: + extremities abnormal to inspection, no cyanosis and no clubbing Skin: + rash (severe Jazzmine intertrigo underneath abd pannus and upper thighs, groins) Neurologic: CN's II-XI intact bilaterally, moves all extremities, awake and + confused (mildly); no focal motor deficits sensation intact to light touch throughout upper and lower extremities Genitourinary: Dangelo with clear yellow urine Lymphatic: + lymphedema (bilat LEs) Results & Data Results & Data ([facility]) Vital Signs (Past 12 Hours) Vital Signs Temp Pulse Pulse Resp BP Pulse Ox 07/28/21 07:24 36.8 C 59 L 18 143/79 H 100 07/28/21 07:16 68 16 97 07/28/21 05:00 35.5 C L 69 20 99/54 L 96 07/28/21 02:02 95 07/27/21 22:56 36.5 C 59 L 18 117/79 94 Laboratory Results 07/28/21 06:11 07/28/21 06:11 Diagnostic Findings No new imaging PG Care Time/CCT Total # of Minutes Spent Total Time Spent with Patient: Total time spent is greater than 50% in coordination of care (as documented) at patient's floor/unit and/or counseling patient: Coding Level of Care Code 28507 Subseq Hosp Care Lvl 2 Diagnoses Atelectasis J98.11 Influenza A J10.1 Asthma J45.909
[2021-07-28] MEDS: predniSONE 20 MG TAB PO SCH (12:17)
--- NOTE | 2021-07-28 13:36 | Hospitalist Progress Note ---
Date of Service July 28, 2021 Assessment & Plan (1) Encephalopathy acute: Plan: 66yo female with history of MS, HTN, DM and Asthma presented with several weeks of progressive dyspnea, acutely worsened on day of amdission. Patient hypoxic by EMS to 87% on room air which improved with supplemental O2. Coarse breath sounds with end-expiratory wheezing. Encephalopathy, suspected infectious Influenza A positive on admission Admitting chest x-ray: Suspicious for pneumonia Admitting UA: Fungal contamination, patient with candidal intertrigo CThead: Negative MRI without contrast brain: Negative for stroke, with demyelinating disease. Patient with history of MS known. CTA chest:Cardiomegaly without central pulmonary emboli identified. Trace pleural effusions with left greater than right dependent bibasilar consolidation suggestive of atelectasis versus pneumonia. Hepatomegaly with hepatic steatosis. EEG with encephalopathy, no seizure activity. Neuro consulted, likely infectious encephalopathy not related to MS Of note patient was obtunded for 36 hours, rapidly began to improve starting 07/27 INDUSTRIAL MAINTENANCE REPAIRER HELPER consulted: Recommend full liquid diet IDD SI 3, will reassess 07/30/2020 to determine readiness for diet upgrade, aspiration precautions, oral thrush covered by IV antifungal -Patient now tolerating p.o., IV fluids discontinued, patient also with edema as noted Antibiotics as below (2) Septic shock: Plan: BP was in 70s-80s systolic shortly after admission persistent for 24 hrs but responded to crystalloid boluses Never required vasopressors Typically has HTN and takes benazepril as an outpt Hypertensive 07/28 with normal creatinine, home Tensopril resumed Leukocytosis downtrending Beta1, 3Dglucan pending. CBC daily Sputum cultures with gram-negative bacilli pending speciation UA with Jazzmine as noted Blood cultures no growth to date with blood fungal culture no growth to date final result pending - continue Cefepime, doxy, Caspofungin to cover for PNA including Gram neg PNA, MRSA, and fungal infection given extensive Jazzmine intertrigo underneath pannus (3) Influenza A: Plan: Uncertain when diagnosed but having sxs about a week or so prior to admission -Monitor, supportive care. Tamiflu not indicated at this time Droplet cautions (4) Pneumonia: Plan: Appreciated on CXR on admission Flu a positive MRSA swab negative On antibiotics as above Pulm consulted. Continue budesonide and Pulmicort neb treatments, may transition to prednisone 40 mg a day for 5 days then discontinued. When improved patient may pursue repeat PFTs, last PFTs in 2013 were normal. Continue pulmonary toilet with flutter valve and incentive spirometry, vest therapy not currently recommended. Pulmonary signed off. Appreciate recommendations. Legionella antigen pending (5) Hypoxia: Plan: secondary to PNA, asthma exacerbation continue CPAP, O2 as above, SPO2 goal greater than 88% 07/28 patient breathing well on room air (6) Hypothermia: Plan: Patient hypothermic on arrival to 32.1. She denies exposure. Warming blanket placed. 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 She has a nebulizer at home, no home O2 -continue albuterol nebs, steroids -Steroids converted to orals, 5-day course as noted above per pulm. Appreciate recommendations. (9) Hypertension: Plan: Home antihypertensive held with septic shock Now improved, ROGELIO resumed 07/29 -Continue to monitor (10) Diabetes: Plan: continue Novolog, accuchecks (11) Metabolic acidosis: Plan: as above, now resolved, unclear of cause as lactates all normal ASA level negative (12) Hypomagnesemia: Plan: replaced and resolved follow Mag (13) Peripheral edema: Plan: chronic as per likely lymphedema Patient tolerating oral liquids, maintenance fluids discontinued (14) Multiple sclerosis: Plan: no treatment since 2011, followed previously with Dr. Fox at baseline can stand with assistance and pivot from wheelchair to recliner where she sleeps, can pivot into shower chair and shower heself, can cook from wheelchair Mental status normal and clear at baseline, currently greatly improving day by day Neuro consulted. Current symptoms unlikely to represent MS flare/involvement (15) Thrombocytopenia: Plan: Baseline plts normal likely from sepsis follow CBC (16) Pancreatitis: Plan: CT abd/epl mentions some stranding around pancreas check lipase-only mildly elevated Abdomen nontender, no guarding, no pain with eating today denies abd pain LFTs normal GB appears normal, no CBD dilatation (17) Hypothyroidism: Plan: TSH here mildly elevated at 6 has not been ableto take po LT4 for 2 days Continue oral Synthroid, patient received 1 dose of IV Synthroid while obtunded (18) GERD (gastroesophageal reflux disease): Plan: Continue oral PPI as long as tolerating p.o. 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 Cardiology consulted. Likely reactive, no rate controlling medications recommended at this time. Plan: DVT proph-Lovenox Dispo-continued stay in PCU Improving. Admission and Anticipated Discharge Date Admission Date: July 25, 2021 Jose Mcnally is seen at the bedside. She reports she feels much better, although she does not remember the previous days very much. She reports she feels much better than yesterday which she does remember. Denies shortness of breath, difficulty breathing, chest pain, chest pressure, lightheadedness, dizziness, fever, chills, sweats, nausea, vomiting, diarrhea today. She has tolerated breakfast well. Has not yet worked with PT/OT today. No other questions at time of bedside assessment Review of Systems Review of Systems: All systems reviewed & are unremarkable except as noted in Subjective Physical Exam 2 Physical Exam: General: Sitting up in chair at time of assessment. Oriented to name, place, and month. Cooperative, pleasant. Some confusion on location, easily redirectable and orientable. HEENT: Atraumatic, normocephalic. Visual acuity and hearing grossly intact. Pulm: Moderate air movement, with diffuse rhonchi and scattered wheezes worse on expiration. Symmetrical chest rise. No increased work of breathing. No respiratory distress. Cardiac: RRR, -mrg. Radial pulses intact and symmetrical. Abdominal: Pannus present with underlying erythema. Nontender on exam. Candidal intertrigo present. Extremities: With pitting edema bilaterally, proximal lower extremities and groin with candidal intertrigo. Results & Data Results & Data ([facility]) Vital Signs (Past 12 Hours) Vital Signs Temp Pulse Pulse Resp BP Pulse Ox 07/28/21 07:24 36.8 C 59 L 18 143/79 H 100 07/28/21 07:16 68 16 97 07/28/21 05:00 35.5 C L 69 20 99/54 L 96 07/28/21 02:02 95 PG Care Time/CCT Total # of Minutes Spent Total Time Spent with Patient: Total time spent is greater than 50% in coordination of care (as documented) at patient's floor/unit and/or counseling patient: Coding Level of Care Code 72037 Subseq Hosp Care Lvl 3 Diagnoses Encephalopathy acute G93.40 Septic shock A41.9; R65.21 Influenza A J10.1 Pneumonia J18.9 Laterality: left Lung location: lower lobe of lung Pneumonia type: due to unspecified organism Hypoxia R09.02 Hypothermia T68.XXXA Encounter type: initial encounter Fungal dermatitis B36.9 Asthma J45.909 Hypertension I10 Diabetes E11.9 Metabolic acidosis E87.2 Hypomagnesemia E83.42 Peripheral edema R60.9 Multiple sclerosis G35 Thrombocytopenia D69.6 Pancreatitis K85.90 Hypothyroidism E03.9 GERD (gastroesophageal reflux disease) K21.9 Tachy-rowena syndrome I49.5 (1) Pneumonia Laterality: left Lung location: lower lobe of lung Pneumonia type: due to unspecified organism Qualified Code(s): J18.9 - Pneumonia, unspecified organism (2) Hypothermia Encounter type: initial encounter Qualified Code(s): T68.XXXA - Hypothermia, initial encounter
[2021-07-28] MEDS: LACTATED RINGER'S 1,000 ML IV SCH (16:16)
[2021-07-28] MEDS: CASPOFUNGIN 50 MG in SODIUM CHLORIDE 0.9% 250 ML IV SCH (18:31)
[2021-07-29] MEDS: ENOXAPARIN INJ 40 MG/0.4 ML SYR SQ SCH ×2 (06:05→18:36)
[2021-07-29] MEDS: LEVOTHYROXINE SODIUM 25 MCG TABLET PO SCH (06:05)
[2021-07-29 06:55] LABS: Hematocrit (blood only) 37.3 % (37-47); Hemoglobin 12.5 g/dL (12.0-16.0); Mean Corpuscular Hemoglobin 31.8 pg (25-34); Mean Corpuscular Hgb Conc 33.5 g/dL (32-36); Mean Corpuscular Volume 94.9 fL (80-100); Mean Platelet Volume 12.4 fL (7.4-10.4); Nucleated RBC # (auto) 0.05 K/uL (0-0); Nucleated RBC % (auto) 0.4 %; Platelet Count 101 K/uL (130-400); RDW Coefficient of Variation 16.4 % (11.5-14.5); Red Blood Count 3.93 M/uL (4.2-5.4); White Blood Count 15.29 K/uL (4.8-10.8)
[2021-07-29 07:16] LABS: Basophils # (auto) 0.01 K/uL (0-0.2); Basophils % (auto) 0.1 %; Eosinophils # (auto) 0.01 K/uL (0-0.5); Eosinophils % (auto) 0.1 %; Immature Granulocytes # (auto) 0.13 K/uL (0.00-0.02); Immature Granulocytes % (auto) 0.9 %; Lymphocytes # (auto) 1.61 K/uL (1.2-3.4); Lymphocytes % (auto) 10.5 %; Monocytes # (auto) 1.39 K/uL (0.11-0.59); Monocytes % (auto) 9.1 %; Neutrophils # (auto) 12.14 K/uL (1.4-6.5); Neutrophils % (auto) 79.3 %
[2021-07-29 07:28] LABS: Calcium 9.6 mg/dl (8.5-10.1); Creatinine Clr Calc Pharmacy 108.7 ml/min; Est GFR (African American) 105.9 ml/min; Est GFR (Non-African American) 91.4 ml/min; Potassium 4.2 mmol/L (3.5-5.1)
[2021-07-29] MEDS: FORMOTEROL 20 MCG/2 ML VIAL NEB SCH ×2 (07:39→19:31)
[2021-07-29] MEDS: BUDESONIDE 0.5 MG/2 ML VIAL (PULMICORT) NEB SCH ×2 (07:40→19:31)
[2021-07-29] MEDS: ENALAPRIL MALEATE 10 MG TAB PO SCH (09:30)
[2021-07-29] MEDS: INSULIN ASPART PER UNIT SC SCH ×4 (10:07→20:45)
[2021-07-29] MEDS: FAMOTIDINE 20 MG in SYRINGE 3 ML IV SCH ×2 (10:08→20:45)
[2021-07-29] MEDS: MICONAZOLE NITRATE POWDER 43 GM EXT SCH ×2 (10:11→20:40)
[2021-07-29] MEDS: DOXYCYCLINE HYCLATE 100 MG in DEXTROSE 5% 100 ML IV SCH (10:55)
[2021-07-29] MEDS: predniSONE 20 MG TAB PO SCH (11:00)
--- NOTE | 2021-07-29 13:26 | Hospitalist Progress Note ---
Date of Service July 29, 2021 Assessment & Plan (1) Encephalopathy acute: Plan: 66yo female with history of MS, HTN, DM and Asthma presented with several weeks of progressive dyspnea, acutely worsened on day of admission. Patient hypoxic by EMS to 87% on room air which improved with supplemental O2. Coarse breath sounds with end-expiratory wheezing. Encephalopathy, suspected infectious Influenza A positive on admission Admitting chest x-ray: Suspicious for pneumonia Admitting UA: Fungal contamination, patient with candidal intertrigo CThead: Negative MRI without contrast brain: Negative for stroke, with demyelinating disease. Patient with history of MS known. CTA chest:Cardiomegaly without central pulmonary emboli identified. Trace pleural effusions with left greater than right dependent bibasilar consolidation suggestive of atelectasis versus pneumonia. Hepatomegaly with hepatic steatosis. EEG with encephalopathy, no seizure activity. Neuro consulted, likely infectious encephalopathy not related to MS Of note patient was obtunded for 36 hours, rapidly began to improve starting 07/27 JEWEL STAKER consulted: Recommend full liquid diet IDD SI 3, will reassess 07/30/2020 to determine readiness for diet upgrade, aspiration precautions, oral thrush covered by IV antifungal Patient with pronounced clinical improvement 07/28 and 07/29, JEWEL STAKER reassessed 07/29 and diet advanced. Antibiotics as below (2) Septic shock: Plan: BP was in 70s-80s systolic shortly after admission persistent for 24 hrs but responded to crystalloid boluses Never required vasopressors Typically has HTN and takes benazepril as an outpt Hypertensive 07/28 with normal creatinine, home Tensopril resumed Leukocytosis downtrending Beta1, 3Dglucan pending. Likely will not be resulted until another 1-2 days on discussing with lab. Fungal cultures remain negative CBC daily Sputum cultures with gram-negative bacilli pending speciation UA with Jazzmine as noted Blood cultures no growth to date with blood fungal culture no growth to date final result pending Given dramatic clinical improvement, negative fungal cultures to date, clinical stability will continue intertrigo treatment but discontinue caspofungin. If clinical worsening or Fungitell returned positive reassess at that time. Patient well enough to engage with PT/OT. Somewhat confused at initial eval, but reoriented. Per PT recommend return home assist for transfers by spouse/family/caregivers or rehab via SNF if unable. 6 clicks 71.92%, score 10 (3) Influenza A: Plan: Uncertain when diagnosed but having sxs about a week or so prior to admission -Monitor, supportive care. Tamiflu not indicated at this time Droplet cautions (4) Pneumonia: Plan: Appreciated on CXR on admission Flu a positive MRSA swab negative On antibiotics as above Pulm consulted. Continue budesonide and Pulmicort neb treatments, may transition to prednisone 40 mg a day for 5 days then discontinued. When improved patient may pursue repeat PFTs, last PFTs in 2013 were normal. Continue pulmonary toilet with flutter valve and incentive spirometry, vest therapy not currently recommended. Pulmonary signed off. Appreciate recommendations. Legionella antigen pending (5) Hypoxia: Plan: secondary to PNA, asthma exacerbation continue CPAP, O2 as above, SPO2 goal greater than 88% 07/28 patient breathing well on room air (6) Hypothermia: Plan: Patient hypothermic on arrival to 32.1. She denies exposure. Warming blanket placed. 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 She has a nebulizer at home, no home O2 -continue albuterol nebs, steroids -Steroids converted to orals, 5-day course as noted above per pulm. Appreciate recommendations. (9) Hypertension: Plan: Home antihypertensive held with septic shock Now improved, ROGELIO resumed 07/29 -Continue to monitor (10) Diabetes: Plan: continue Novolog, accuchecks (11) Metabolic acidosis: Plan: as above, now resolved, unclear of cause as lactates all normal ASA level negative (12) Hypomagnesemia: Plan: replaced and resolved follow Mag (13) Peripheral edema: Plan: chronic as per likely lymphedema Patient tolerating oral liquids, maintenance fluids discontinued (14) Multiple sclerosis: Plan: no treatment since 2011, followed previously with Dr. Fox at baseline can stand with assistance and pivot from wheelchair to recliner where she sleeps, can pivot into shower chair and shower heself, can cook from wheelchair Mental status normal and clear at baseline, currently greatly improving day by day and near baseline 07/29 Neuro consulted. Current symptoms unlikely to represent MS flare/involvement (15) Thrombocytopenia: Plan: Baseline plts normal likely from sepsis follow CBC (16) Pancreatitis: Plan: CT abd/epl mentions some stranding around pancreas lipase only mildly elevated Abdomen nontender, no guarding, no pain with eating today denies abd pain LFTs normal GB appears normal, no CBD dilatation (17) Hypothyroidism: Plan: TSH here mildly elevated at 6 has not been ableto take po LT4 for 2 days Continue oral Synthroid, patient received 1 dose of IV Synthroid while obtunded (18) GERD (gastroesophageal reflux disease): Plan: Continue oral PPI as long as tolerating p.o. 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 Likely reactive, no rate controlling medications recommended at this time. Plan: DVT proph-Lovenox Dispo-improving, downgrade to med telemetry, PT/OT pending Admission and Anticipated Discharge Date Admission Date: July 25, 2021 Subjective Dali is seen at the bedside. She is laying down, feeling improved although slightly weak. No fever/chills/sweats. Eating well, tolerating liquids well. Would like to try advancement of her diet. No BM today. No other questions or concerns at time of bedside. Review of Systems Review of Systems: All systems reviewed & are unremarkable except as noted in Subjective Physical Exam Physical Exam: General: Laying in bed NAD at time of assessment. Oriented to name, place, and month. Cooperative, pleasant. HEENT: Atraumatic, normocephalic. Visual acuity and hearing grossly intact. Pulm: Moderate air movement, with diffuse rhonchi and scattered wheezes worse on expiration. Symmetrical chest rise. No increased work of breathing. No respiratory distress. Cardiac: RRR, -mrg. Radial pulses intact and symmetrical. Abdominal: Pannus present with underlying erythema. Nontender on exam. Candidal intertrigo present. Extremities: With pitting edema bilaterally, proximal lower extremities and groin with candidal intertrigo. Results & Data Results & Data ([facility]) Vital Signs (Past 12 Hours) Vital Signs Temp Pulse Pulse Pulse Resp BP Pulse Ox 07/29/21 11:13 36.8 C 57 L 19 125/71 96 07/29/21 08:17 36.5 C 62 22 132/82 96 07/29/21 07:41 64 18 94 07/29/21 07:00 60 07/29/21 03:00 55 L 22 115/68 97 PG Care Time/CCT Total # of Minutes Spent Total Time Spent with Patient: Total time spent is greater than 50% in coordination of care (as documented) at patient's floor/unit and/or counseling patient: Coding Level of Care Code 92478 Subseq Hosp Care Lvl 3 Diagnoses Encephalopathy acute G93.40 Septic shock A41.9; R65.21 Influenza A J10.1 Pneumonia J18.9 Laterality: left Lung location: lower lobe of lung Pneumonia type: due to unspecified organism Hypoxia R09.02 Hypothermia T68.XXXA Encounter type: initial encounter Fungal dermatitis B36.9 Asthma J45.909 Hypertension I10 Diabetes E11.9 Metabolic acidosis E87.2 Hypomagnesemia E83.42 Peripheral edema R60.9 Multiple sclerosis G35 Thrombocytopenia D69.6 Pancreatitis K85.90 Hypothyroidism E03.9 GERD (gastroesophageal reflux disease) K21.9 Tachy-rowena syndrome I49.5 (1) Pneumonia Laterality: left Lung location: lower lobe of lung Pneumonia type: due to unspecified organism Qualified Code(s): J18.9 - Pneumonia, unspecified organism (2) Hypothermia Encounter type: initial encounter Qualified Code(s): T68.XXXA - Hypothermia, initial encounter
[2021-07-29] MEDS: CEFEPIME 2,000 MG in SYRINGE 0 ML IV SCH (14:43)
[2021-07-29 21:57] LABS: Fungitell (1-3)-B-D-Glucan <31 pg/mL
[2021-07-30] MEDS: CEFEPIME 2,000 MG in SYRINGE 0 ML IV SCH ×3 (02:07→20:29)
[2021-07-30] MEDS: LEVOTHYROXINE SODIUM 25 MCG TABLET PO SCH (05:42)
[2021-07-30] MEDS: ENOXAPARIN INJ 40 MG/0.4 ML SYR SQ SCH ×2 (05:42→17:35)
[2021-07-30] MEDS: BUDESONIDE 0.5 MG/2 ML VIAL (PULMICORT) NEB SCH ×2 (07:27→19:26)
[2021-07-30] MEDS: FORMOTEROL 20 MCG/2 ML VIAL NEB SCH ×2 (07:27→19:26)
[2021-07-30 07:46] LABS: Hematocrit (blood only) 36.4 % (37-47); Hemoglobin 12.2 g/dL (12.0-16.0); Mean Corpuscular Hemoglobin 31.9 pg (25-34); Mean Corpuscular Hgb Conc 33.5 g/dL (32-36); Nucleated RBC # (auto) 0.09 K/uL (0-0); Nucleated RBC % (auto) 0.5 %; Platelet Count 116 K/uL (130-400); RDW Coefficient of Variation 16.7 % (11.5-14.5); RDW Standard Deviation 56.1 fL (36.4-46.3); Red Blood Count 3.83 M/uL (4.2-5.4); White Blood Count 17.55 K/uL (4.8-10.8)
[2021-07-30] MEDS: INSULIN ASPART PER UNIT SC SCH ×4 (08:25→20:39)
[2021-07-30] MEDS: predniSONE 20 MG TAB PO SCH (08:31)
[2021-07-30 08:32] LABS: Basophils # (auto) 0.02 K/uL (0-0.2); Basophils % (auto) 0.1 %; Eosinophils # (auto) 0.07 K/uL (0-0.5); Eosinophils % (auto) 0.4 %; Immature Granulocytes # (auto) 0.21 K/uL (0.00-0.02); Immature Granulocytes % (auto) 1.2 %; Lymphocytes # (auto) 2.54 K/uL (1.2-3.4); Lymphocytes % (auto) 14.5 %; Monocytes # (auto) 1.39 K/uL (0.11-0.59); Monocytes % (auto) 7.9 %; Neutrophils # (auto) 13.32 K/uL (1.4-6.5); Neutrophils % (auto) 75.9 %
[2021-07-30] MEDS: ENALAPRIL MALEATE 10 MG TAB PO SCH (08:32)
[2021-07-30] MEDS: MICONAZOLE NITRATE POWDER 43 GM EXT SCH ×2 (08:32→20:30)
--- NOTE | 2021-07-30 08:35 | XRay Report ---
XR chest 1V portable CLINICAL HISTORY: cough, pseudomonal sputum, serial exam. COMPARISON STUDY: 07/26/2021 TECHNIQUE: 1 view of the chest FINDINGS: Single frontal view of the chest demonstrates the heart to again be enlarged. Compared to the previou s examination, increased alveolar opacities again seen at the left lung base in the retrocardiac lisa on. The remainder of the lungs are clear. There is again a small left pleural effusion with no eviden ce for right pleural effusion. There is no evidence for vascular congestion. There is no acute osseou s pathology. IMPRESSION: Persistent alveolar opacity at the left lung base most characteristic of the presence of pneumonia. Small associated left pleural effusion. ACT 112: Negative or not required by law. Electronically signed by: Mode Joshi M.D. 07/30/2021 8:34 AM
[2021-07-30 08:39] LABS: BUN Creatinine Ratio 43.8 (10-20); Calcium 9.3 mg/dl (8.5-10.1); Creatinine Clr Calc Pharmacy 98.3 ml/min; Est GFR (African American) 98.8 ml/min; Est GFR (Non-African American) 85.2 ml/min
[2021-07-30] MEDS: FAMOTIDINE 20 MG in SYRINGE 3 ML IV SCH ×2 (09:41→20:30)
--- NOTE | 2021-07-30 10:43 | Hospitalist Progress Note ---
Date of Service July 30, 2021 Assessment & Plan (1) Encephalopathy acute: Plan: 66yo female with history of MS, HTN, DM and Asthma presented with several weeks of progressive dyspnea, acutely worsened on day of admission. Patient hypoxic by EMS to 87% on room air which improved with supplemental O2. Coarse breath sounds with end-expiratory wheezing. Encephalopathy, suspected infectious Influenza A positive on admission Admitting chest x-ray: Suspicious for pneumonia Admitting UA: Fungal contamination, patient with candidal intertrigo CThead: Negative MRI without contrast brain: Negative for stroke, with demyelinating disease. Patient with history of MS known. CTA chest:Cardiomegaly without central pulmonary emboli identified. Trace pleural effusions with left greater than right dependent bibasilar consolidation suggestive of atelectasis versus pneumonia. Hepatomegaly with hepatic steatosis. EEG with encephalopathy, no seizure activity. Neuro consulted, likely infectious encephalopathy not related to MS Of note patient was obtunded for 36 hours, rapidly began to improve starting 07/27 BEHAVIORAL THERAPIST consulted: Recommend full liquid diet IDD SI 3, planned to reassess 07/30 to determine readiness for diet upgrade, aspiration precautions, oral thrush covered by IV antifungal Patient with pronounced clinical improvement 07/28 and 07/29, BEHAVIORAL THERAPIST reassessed 07/29 and diet advanced. Antibiotics as below (2) Septic shock: Plan: BP was in 70s-80s systolic shortly after admission persistent for 24 hrs but responded to crystalloid boluses Never required vasopressors Typically has HTN and takes benazepril as an outpt Hypertensive 07/28 with normal creatinine, home Tensopril resumed Leukocytosis downtrending Beta1, 3Dglucan negative. Fungal cultures remain negative. CBC daily Sputum cultures +Pseudomonas UA with Jazzmine as noted Blood cultures no growth to date with blood fungal culture no growth to date final result pending W/ clinical improvement, negative fungal cultures to date, negative fungitell, and clinical stability will continue intertrigo treatment but discontinued caspofungin. Per PT recommend return home assist for transfers by spouse/family/caregivers or rehab via SNF if unable. 6 clicks 71.92%, score 10. feels cannot safely assist with transfers at this time. Nursing reports difficult transfer assist at bedside. PT/OT following. CM notified, looking into SNF options. (3) Influenza A: Plan: Uncertain when diagnosed but having sxs about a week or so prior to admission -Monitor, supportive care. Tamiflu not indicated at this time Droplet cautions (4) Pneumonia: Plan: Appreciated on CXR on admission - Repeat CXR 07/30: Persistent alveolar opacity at the left lung base most characteristic of the presence of pneumonia. Small associated left pleural effusion. Flu a positive MRSA swab negative, completed 4 days of doxy then d/luis with negative swab On antibiotics as above Pulm previously consulted. Continue budesonide and Pulmicort neb treatments, may transition to prednisone 40 mg a day for 5 days then discontinued. When improved patient may pursue repeat PFTs, last PFTs in 2013 were normal. Continue pulmonary toilet with flutter valve and incentive spirometry, vest therapy not currently recommended. Pulmonary signed off. Appreciate recommendations. Legionella antigen pending - Sputum positive for Pseudomonas. Cefepime resumed 07/29/21 evening, pt with increased sputum production 07/29. Cefepime started 07/25 on arrival, was d/luis for 1 day after initial eval and - procal, resumed based on clinical sx, repeat xr, and sputum cx. Recommend 7-10 days total tx, will treat until 08/05. May transition to oral Levaquin at [place]. Last EKG QTc <480 - Remains with leukocytosis, but on prednisone as noted below. Clinically improving (5) Hypoxia: Plan: secondary to PNA, asthma exacerbation continue CPAP, O2 as above, SPO2 goal greater than 88% 07/28 on patient breathing well on room air (6) Hypothermia: Plan: Patient hypothermic on arrival to 32.1. She denies exposure. Warming blanket placed. 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 She has a nebulizer at home, no home O2 -continue albuterol nebs, steroids -Steroids converted to orals, 5-day course as noted above per pulm. Appreciate recommendations. (9) Hypertension: Plan: Home antihypertensive held with septic shock ROGELIO resumed 07/29 -Continue to monitor - Adequate control (10) Diabetes: Plan: continue Novolog, accuchecks (11) Metabolic acidosis: Plan: as above, now resolved, unclear of cause as lactates all normal ASA level negative (12) Hypomagnesemia: Plan: replaced and resolved follow Mag (13) Peripheral edema: Plan: chronic as per likely lymphedema Patient tolerating oral liquids, maintenance fluids discontinued (14) Multiple sclerosis: Plan: no treatment since 2011, followed previously with Dr. Fox at baseline can stand with assistance and pivot from wheelchair to recliner where she sleeps, can pivot into shower chair and shower heself, can cook from wheelchair Mental status normal and clear at baseline, currently greatly improving day by day and near baseline 07/29 Neuro consulted. Current symptoms unlikely to represent MS flare/involvement (15) Thrombocytopenia: Plan: Baseline plts normal likely from sepsis follow CBC (16) Pancreatitis: Plan: CT abd/epl mentions some stranding around pancreas lipase only mildly elevated Abdomen nontender, no guarding, no pain with eating today denies abd pain LFTs normal GB appears normal, no CBD dilatation (17) Hypothyroidism: Plan: TSH here mildly elevated at 6 has not been ableto take po LT4 for 2 days Continue oral Synthroid, patient received 1 dose of IV Synthroid while obtunded (18) GERD (gastroesophageal reflux disease): Plan: Continue oral PPI as long as tolerating p.o. 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 Likely reactive, no rate controlling medications recommended at this time. Plan: DVT proph-Lovenox Dispo-improving, downgrade to med telemetry, PT/OT pending Admission and Anticipated Discharge Date Admission Date: July 25, 2021 Review of Systems Review of Systems: Subjective narrative documented in review of systems due to Coubic error, unable to access subjective narrative box. Patient is seen at the bedside, she reports that she continues to feel improved and similar to yesterday. Continues to have a cough productive for some white lightly temple sputum without blood. Is not short of breath. Denies fever, chills, sweats, urinary pain, chest pain, chest pressure, abdominal pain, nausea/vomiting. Tolerated breakfast well. Has eaten some fish for lunch which she reports she wanted to try, although notes she has had an allergy to this with hives in the past. Discussed if she is allergic to fish she should not order it, and can have something else applied by dietary. Discussed with nursing, patient observed for allergy but no signs of mucosal change, swelling, respiratory compromise, rash, or diarrhea. Discussed with nursing, patient has had great difficulty with transfers and has been a full assist with great difficulty by nursing. Patient's does not feel he can safely help her transfer this time, discussed with case management and based on PT/OT are looking into SNF options. 10 point review of systems otherwise negative except as noted above. Physical Exam Physical Exam: General: Laying in bed NAD at time of assessment. Oriented to name, place, and month. Cooperative, pleasant. Obese. HEENT: Atraumatic, normocephalic. Visual acuity and hearing grossly intact. Pulm: Moderate air movement, with diffuse rhonchi and scattered wheezes worse on expiration. Symmetrical chest rise. No increased work of breathing. No respiratory distress. Cardiac: RRR, -mrg. Radial pulses intact and symmetrical. Abdominal: Pannus present with underlying erythema. Nontender on exam. Candidal intertrigo present. Extremities: With pitting edema bilaterally, proximal lower extremities and groin with candidal intertrigo. Results & Data Results & Data ([facility]) Vital Signs (Past 12 Hours) Vital Signs Temp Pulse Pulse Resp BP Pulse Ox 07/30/21 07:45 36.7 C 66 22 152/81 H 94 07/30/21 07:26 70 18 96 07/30/21 07:19 81 07/30/21 04:17 36.3 C L 78 24 143/95 H 93 07/30/21 00:39 36.3 C L 07/30/21 00:14 49 L 07/29/21 23:05 35 C L 64 24 157/74 H 94 PG Care Time/CCT Total # of Minutes Spent Total Time Spent with Patient: Total time spent is greater than 50% in coordination of care (as documented) at patient's floor/unit and/or counseling patient: Coding Level of Care Code 41758 Subseq Hosp Care Lvl 2 Diagnoses Encephalopathy acute G93.40 Septic shock A41.9; R65.21 Influenza A J10.1 Pneumonia J18.9 Laterality: left Lung location: lower lobe of lung Pneumonia type: due to unspecified organism Hypoxia R09.02 Hypothermia T68.XXXA Encounter type: initial encounter Fungal dermatitis B36.9 Asthma J45.909 Hypertension I10 Diabetes E11.9 Metabolic acidosis E87.2 Hypomagnesemia E83.42 Peripheral edema R60.9 Multiple sclerosis G35 Thrombocytopenia D69.6 Pancreatitis K85.90 Hypothyroidism E03.9 GERD (gastroesophageal reflux disease) K21.9 Tachy-rowena syndrome I49.5 (1) Hypothermia Encounter type: initial encounter Qualified Code(s): T68.XXXA - Hypothermia, initial encounter (2) Pneumonia Laterality: left Lung location: lower lobe of lung Pneumonia type: due to unspecified organism Qualified Code(s): J18.9 - Pneumonia, unspecified organism
[2021-07-30 11:18] LABS: C Reactive Protein 10.5 mg/dl (0-0.5)
[2021-07-30 11:58] LABS: C Reactive Protein 13.14 mg/dl (0-0.5)
[2021-07-30 12:38] LABS: C Reactive Protein 4.3 mg/dl (0-0.5)
[2021-07-31] MEDS: CEFEPIME 2,000 MG in SYRINGE 0 ML IV SCH ×3 (03:51→21:01)
[2021-07-31] MEDS: LEVOTHYROXINE SODIUM 25 MCG TABLET PO SCH (05:38)
[2021-07-31] MEDS: ENOXAPARIN INJ 40 MG/0.4 ML SYR SQ SCH ×2 (05:38→17:00)
[2021-07-31 06:43] LABS: Hemoglobin 12.4 g/dL (12.0-16.0); Mean Corpuscular Hemoglobin 32.4 pg (25-34); Mean Corpuscular Hgb Conc 33.5 g/dL (32-36); Mean Corpuscular Volume 96.6 fL (80-100); Mean Platelet Volume 12.2 fL (7.4-10.4); Nucleated RBC # (auto) 0.06 K/uL (0-0); Nucleated RBC % (auto) 0.4 %; Platelet Count 120 K/uL (130-400); RDW Coefficient of Variation 16.6 % (11.5-14.5); RDW Standard Deviation 55.5 fL (36.4-46.3); Red Blood Count 3.83 M/uL (4.2-5.4); White Blood Count 16.56 K/uL (4.8-10.8)
[2021-07-31 07:00] LABS: BUN Creatinine Ratio 36.6 (10-20); Calcium 9.1 mg/dl (8.5-10.1); Creatinine Clr Calc Pharmacy 101.1 ml/min; Est GFR (African American) 102.2 ml/min; Est GFR (Non-African American) 88.1 ml/min; Potassium 4.1 mmol/L (3.5-5.1)
[2021-07-31] MEDS: BUDESONIDE 0.5 MG/2 ML VIAL (PULMICORT) NEB SCH ×2 (07:46→19:53)
[2021-07-31] MEDS: FORMOTEROL 20 MCG/2 ML VIAL NEB SCH ×2 (07:47→19:54)
[2021-07-31 07:51] LABS: Basophils # (auto) 0.01 K/uL (0-0.2); Basophils % (auto) 0.1 %; Eosinophils # (auto) 0.15 K/uL (0-0.5); Eosinophils % (auto) 0.9 %; Immature Granulocytes # (auto) 0.19 K/uL (0.00-0.02); Immature Granulocytes % (auto) 1.1 %; Lymphocytes # (auto) 2.35 K/uL (1.2-3.4); Lymphocytes % (auto) 14.2 %; Monocytes # (auto) 1.15 K/uL (0.11-0.59); Monocytes % (auto) 6.9 %; Neutrophils # (auto) 12.71 K/uL (1.4-6.5); Neutrophils % (auto) 76.8 %
[2021-07-31] MEDS: predniSONE 20 MG TAB PO SCH (08:06)
[2021-07-31] MEDS: ENALAPRIL MALEATE 10 MG TAB PO SCH (08:06)
[2021-07-31] MEDS: FAMOTIDINE 20 MG in SYRINGE 3 ML IV SCH ×2 (08:07→21:01)
[2021-07-31] MEDS: MICONAZOLE NITRATE POWDER 43 GM EXT SCH ×2 (08:09→21:02)
[2021-07-31] MEDS: INSULIN ASPART PER UNIT SC SCH ×4 (09:01→20:48)
--- NOTE | 2021-07-31 15:58 | Hospitalist Progress Note ---
Date of Service July 31, 2021 Assessment & Plan (1) Encephalopathy acute: Plan: 66yo female with history of MS, HTN, DM and Asthma presented with several weeks of progressive dyspnea, acutely worsened on day of admission. Patient hypoxic by EMS to 87% on room air which improved with supplemental O2. Coarse breath sounds with end-expiratory wheezing. Encephalopathy, suspected infectious Influenza A positive on admission Admitting chest x-ray: Suspicious for pneumonia Admitting UA: Fungal contamination, patient with candidal intertrigo CThead: Negative MRI without contrast brain: Negative for stroke, with demyelinating disease. Patient with history of MS known. CTA chest:Cardiomegaly without central pulmonary emboli identified. Trace pleural effusions with left greater than right dependent bibasilar consolidation suggestive of atelectasis versus pneumonia. Hepatomegaly with hepatic steatosis. EEG with encephalopathy, no seizure activity. Neuro consulted, likely, improving infectious encephalopathy not related to MS Of note patient was obtunded for 36 hours, rapidly began to improve starting 07/27 STATIONARY ENGINEER REFRIGERATION consulted: Recommend full liquid diet IDD SI 3, planned to reassess 07/30 to determine readiness for diet upgrade, aspiration precautions, oral thrush covered by IV antifungal Patient with pronounced clinical improvement 07/28 and 07/29, STATIONARY [employer]INEER [employer]ER[employer] reassessed 07/29 and diet advanced. Antibiotics as below (2) Septic shock: Plan: BP was in 70s-80s systolic shortly after admission persistent for 24 hrs but responded to crystalloid boluses Never required vasopressors Typically has HTN and takes benazepril as an outpt Hypertensive 07/28 with normal creatinine, home Tensopril resumed Leukocytosis downtrending Beta1, 3Dglucan negative. Fungal cultures remain negative. CBC daily Sputum cultures +Pseudomonas UA with Jazzmine as noted Blood cultures no growth to date with blood fungal culture no growth to date final result pending W/ clinical improvement, negative fungal cultures to date, negative fungitell, and clinical stability will continue intertrigo treatment but discontinued caspofungin. Per PT recommend return home assist for transfers by spouse/family/caregivers or rehab via SNF if unable. 6 clicks 71.92%, score 10. feels cannot safely assist with transfers at this time. Nursing reports difficult transfer assist at bedside. PT/OT following. Patient feels below her baseline and has more difficulty transferring than normal. Case management on board looking for placement options. (3) Influenza A: Plan: Uncertain when diagnosed but having sxs about a week or so prior to admission -Monitor, supportive care. Tamiflu not indicated at this time Droplet cautions (4) Pneumonia: Plan: Appreciated on CXR on admission - Repeat CXR 07/30: Persistent alveolar opacity at the left lung base most characteristic of the presence of pneumonia. Small associated left pleural effusion. Flu a positive MRSA swab negative, completed 4 days of doxy then d/luis with negative swab On antibiotics as above Pulm previously consulted. Continue budesonide and Pulmicort neb treatments, may transition to prednisone 40 mg a day for 5 days then discontinued. When improved patient may pursue repeat PFTs, last PFTs in 2013 were normal. Continue pulmonary toilet with flutter valve and incentive spirometry, vest the rapy not currently recommended. Pulmonary signed off. Appreciate recommendations. Legionella antigen pending - Sputum positive for Pseudomonas. Cefepime resumed 07/29/21 evening, pt with increased sputum production 07/29. Cefepime started 07/25 on arrival, was d/luis for 1 day after initial eval and - procal, resumed based on clinical sx, repeat xr, and sputum cx. Recommend 7-10 days total tx, will treat until 08/05. May transition to oral Levaquin at [place]. Last EKG QTc <480. Continue to follow leukocytosis, equivocal today and on pred. (5) Hypoxia: Plan: secondary to PNA, asthma exacerbation continue CPAP, O2 as above, SPO2 goal greater than 88% 07/28 on patient breathing well on room air (6) Hypothermia: Plan: Patient hypothermic on arrival to 32.1. She denies exposure. Warming blanket placed. 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 She has a nebulizer at home, no home O2 -continue albuterol nebs, steroids -Steroids converted to orals, 5-day course as noted above per pulm. Appreciate recommendations. (9) Hypertension: Plan: Home antihypertensive held with septic shock ROGELIO resumed 07/29 -Continue to monitor - Adequate control (10) Diabetes: Plan: continue Novolog, accuchecks (11) Metabolic acidosis: Plan: as above, now resolved, unclear of cause as lactates all normal ASA level negative (12) Hypomagnesemia: Plan: replaced and resolved (13) Peripheral edema: Plan: chronic as per likely lymphedema (14) Multiple sclerosis: Plan: no treatment since 2011, followed previously with Dr. Fox at baseline can stand with assistance and pivot from wheelchair to recliner where she sleeps, can pivot into shower chair and shower heself, can cook from wheelchair Mental status normal and clear at baseline, currently greatly improving day by day and near baseline 07/29 Neuro consulted. Current symptoms unlikely to represent MS flare/involvement (15) Thrombocytopenia: Plan: Baseline plts normal likely from sepsis follow CBC Indication for additional steroid/platelet transfusion. No evidence of active bleeding. 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 Likely reactive, no rate controlling medications recommended at this time. Rate normal 07/31 Plan: DVT proph-Lovenox Dispo-Med/Tele, PT/OT, placement pending Admission and Anticipated Discharge Date Admission Date: July 25, 2021 Subjective Seen at bedside. In the morning she reports that she had slept well, continues to cough overall improving. On afternoon reassessment felt that she felt weak worked with PT/OT and shaky, and had difficulty transferring and moving like she normally would. Feels she is below her normal level of strength. Has been seen at bedside in afternoon with patient, voices similar concerns. She denies fever, chills, sweats today. No chest pain, chest pressure, nausea, vomiting. Review of Systems Review of Systems: All systems reviewed & are unremarkable except as noted in Subjective Physical Exam Physical Exam: General: Laying in bed NAD at time of assessment. Oriented to name, place, and month. Cooperative, pleasant. Obese. HEENT: Atraumatic, normocephalic. Visual acuity and hearing grossly intact. Pulm: Moderate air movement, with diffuse rhonchi. Wheezes reduced today. Symmetrical chest rise. No increased work of breathing. No respiratory distress. Cardiac: RRR, -mrg. Radial pulses intact and symmetrical. Abdominal: Pannus present with underlying erythema, powder in place. Nontender on exam. Candidal intertrigo present. Extremities: pitting edema bilaterally, proximal lower extremities and groin with candidal intertrigo. Results & Data Results & Data ([facility]) Vital Signs (Past 12 Hours) Vital Signs Temp Pulse Pulse Pulse Resp BP Pulse Ox 07/31/21 11:54 36.6 C 65 16 145/77 H 93 07/31/21 08:07 36.6 C 74 20 138/82 93 07/31/21 08:00 68 07/31/21 07:46 61 18 93 PG Care Time/CCT Total # of Minutes Spent Total Time Spent with Patient: Total time spent is greater than 50% in coordination of care (as documented) at patient's floor/unit and/or counseling patient: Coding Level of Care Code 29252 Subseq Hosp Care Lvl 2 Diagnoses Encephalopathy acute G93.40 Septic shock A41.9; R65.21 Influenza A J10.1 Pneumonia J18.9 Laterality: left Lung location: lower lobe of lung Pneumonia type: due to unspecified organism Hypoxia R09.02 Hypothermia T68.XXXA Encounter type: initial encounter Fungal dermatitis B36.9 Asthma J45.909 Hypertension I10 Diabetes E11.9 Metabolic acidosis E87.2 Hypomagnesemia E83.42 Peripheral edema R60.9 Multiple sclerosis G35 Thrombocytopenia D69.6 Pancreatitis K85.90 Hypothyroidism E03.9 GERD (gastroesophageal reflux disease) K21.9 Tachy-rowena syndrome I49.5 (1) Pneumonia Laterality: left Lung location: lower lobe of lung Pneumonia type: due to unspecified organism Qualified Code(s): J18.9 - Pneumonia, unspecified organism (2) Hypothermia Encounter type: initial encounter Qualified Code(s): T68.XXXA - Hypothermia, initial encounter
[2021-08-01] MEDS: CEFEPIME 2,000 MG in SYRINGE 0 ML IV SCH ×3 (03:57→20:59)
[2021-08-01] MEDS: ENOXAPARIN INJ 40 MG/0.4 ML SYR SQ SCH ×2 (06:01→17:20)
[2021-08-01] MEDS: LEVOTHYROXINE SODIUM 25 MCG TABLET PO SCH (06:01)
[2021-08-01 07:20] LABS: Hematocrit (blood only) 36.5 % (37-47); Mean Corpuscular Hemoglobin 31.9 pg (25-34); Mean Corpuscular Hgb Conc 32.9 g/dL (32-36); Mean Corpuscular Volume 97.1 fL (80-100); Mean Platelet Volume 12.9 fL (7.4-10.4); Platelet Count 116 K/uL (130-400); RDW Coefficient of Variation 16.7 % (11.5-14.5); RDW Standard Deviation 56.7 fL (36.4-46.3); Red Blood Count 3.76 M/uL (4.2-5.4)
[2021-08-01 07:35] LABS: BUN Creatinine Ratio 33.8 (10-20); Calcium 9.2 mg/dl (8.5-10.1); Creatinine Clr Calc Pharmacy 106.9 ml/min; Est GFR (African American) 104.9 ml/min; Est GFR (Non-African American) 90.5 ml/min; Potassium 3.8 mmol/L (3.5-5.1)
[2021-08-01 07:42] LABS: ALC (manual) 1.55 K/uL (1.2-3.4); ANC (manual) 13.28 K/uL (1.4-6.5); Eosinophils # (manual) 0.14 K/uL (0-0.5); Eosinophils % (manual) 0.9 %; Lymphocytes # (manual) 1.55 K/uL (1.2-3.4); Lymphocytes % (manual) 9.6 %; Monocytes # (manual) 1.13 K/uL (0.11-0.59); Neutrophils # (manual) 13.28 K/uL (1.4-6.5); Neutrophils % (manual) 82.5 %
[2021-08-01] MEDS: BUDESONIDE 0.5 MG/2 ML VIAL (PULMICORT) NEB SCH ×2 (08:06→20:34)
[2021-08-01] MEDS: FORMOTEROL 20 MCG/2 ML VIAL NEB SCH ×2 (08:06→20:34)
[2021-08-01] MEDS: ENALAPRIL MALEATE 10 MG TAB PO SCH (08:19)
[2021-08-01] MEDS: predniSONE 20 MG TAB PO SCH (08:20)
[2021-08-01] MEDS: FAMOTIDINE 20 MG in SYRINGE 3 ML IV SCH ×2 (08:22→20:59)
[2021-08-01] MEDS: INSULIN ASPART PER UNIT SC SCH ×4 (08:26→21:03)
[2021-08-01] MEDS: MICONAZOLE NITRATE POWDER 43 GM EXT SCH ×2 (08:26→20:59)
--- NOTE | 2021-08-01 13:18 | Hospitalist Progress Note ---
Date of Service August 01, 2021 Assessment & Plan (1) Encephalopathy acute: Plan: 66yo female with history of MS, HTN, DM and Asthma presented with several weeks of progressive dyspnea, acutely worsened on day of admission. Patient hypoxic by EMS to 87% on room air which improved with supplemental O2. Coarse breath sounds with end-expiratory wheezing. Encephalopathy, suspected infectious Influenza A positive on admission Admitting chest x-ray: Suspicious for pneumonia Admitting UA: Fungal contamination, patient with candidal intertrigo CThead: Negative MRI without contrast brain: Negative for stroke, with demyelinating disease. Patient with history of MS known. CTA chest:Cardiomegaly without central pulmonary emboli identified. Trace pleural effusions with left greater than right dependent bibasilar consolidation suggestive of atelectasis versus pneumonia. Hepatomegaly with hepatic steatosis. EEG with encephalopathy, no seizure activity. Neuro consulted, likely, improving infectious encephalopathy not related to MS Of note patient was obtunded for 36 hours, rapidly began to improve starting 07/27 ENVIRONMENTAL RESOURCE SPECIALIST consulted: Recommend full liquid diet IDD SI 3, planned to reassess 07/30 to determine readiness for diet upgrade, aspiration precautions, oral thrush covered by IV antifungal Patient with pronounced clinical improvement 07/28 and 07/29, ENVIRONMENTAL RESOURCE SPECIALIST reassessed 07/29 and diet advanced. Antibiotics as below (2) Septic shock: Plan: BP was in 70s-80s systolic shortly after admission persistent for 24 hrs but responded to crystalloid boluses Never required vasopressors Typically has HTN and takes benazepril as an outpt Hypertensive 07/28 with normal creatinine, home ROGELIO resumed Beta1, 3Dglucan negative. Fungal cultures remain negative. CBC daily Sputum cultures +Pseudomonas UA with Jazzimne as noted Blood cultures no growth to date with blood fungal culture no growth to date final result pending W/ clinical improvement, negative fungal cultures to date, negative fungitell, and clinical stability will continue intertrigo treatment but discontinued caspofungin. - Persistent leukocytosis, although also on steroids and clinically improved. Continue current tx. Per PT recommend return home assist for transfers by spouse/family/caregivers or rehab via SNF if unable. 6 clicks 71.92%, score 10. feels cannot safely assist with transfers at this time. Nursing reports difficult transfer assist at bedside. PT/OT following. - Referalls to [facility]/CC made, pending (3) Influenza A: Plan: Uncertain when diagnosed but having sxs about a week or so prior to admission -Monitor, supportive care. Tamiflu not indicated at this time Droplet cautions (4) Pneumonia: Plan: Appreciated on CXR on admission - Repeat CXR 07/30: Persistent alveolar opacity at the left lung base most characteristic of the presence of pneumonia. Small associated left pleural effusion. Flu a positive MRSA swab negative, completed 4 days of doxy then d/luis with negative swab On antibiotics as above Pulm previously consulted. Continue budesonide and Pulmicort neb treatments, may transition to prednisone 40 mg a day for 5 days then discontinued. When improved patient may pursue repeat PFTs, last PFTs in 2013 were normal. Continue pulmonary toilet with flutter valve and incentive spirometry, vest therapy not currently recommended. Pulmonary signed off. Appreciate recommendations. Legionella antigen pending - Sputum positive for Pseudomonas. Cefepime resumed 07/29/21 evening, pt with increased sputum production 07/29. Cefepime started 07/25 on arrival, was d/lius for 1 day after initial eval and - procal, resumed based on clinical sx, repeat xr, and sputum cx. Recommend 7-10 days total tx, will treat until 08/05. May transition to oral Levaquin at pa. Last EKG QTc <480. (5) Hypoxia: Plan: secondary to PNA, asthma exacerbation continue CPAP, O2 as above, SPO2 goal greater than 88% 07/28 on patient breathing well on room air (6) Hypothermia: Plan: Patient hypothermic on arrival to 32.1. She denies exposure. Warming blanket placed. 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 She has a nebulizer at home, no home O2 -continue albuterol nebs, steroids -Steroids converted to orals, 5-day course as noted above per pulm. Appreciate recommendations. (9) Hypertension: Plan: Home antihypertensive held with septic shock ROGELIO resumed 07/29 -Continue to monitor - Adequate control (10) Diabetes: Plan: continue Novolog, accuchecks (11) Metabolic acidosis: Plan: as above, now resolved, unclear of cause as lactates all normal ASA level negative (12) Hypomagnesemia: Plan: replaced and resolved (13) Peripheral edema: Plan: chronic as per likely lymphedema (14) Multiple sclerosis: Plan: no treatment since 2011, followed previously with Dr. Fox at baseline can stand with assistance and pivot from wheelchair to recliner where she sleeps, can pivot into shower chair and shower heself, can cook from wheelchair Mental status normal and clear at baseline, currently greatly improving day by day and near baseline 07/29 Neuro consulted. Current symptoms unlikely to represent MS flare/involvement (15) Thrombocytopenia: Plan: Baseline plts normal likely from sepsis follow CBC Indication for additional steroid/platelet transfusion. No evidence of active bleeding. 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 Likely reactive, no rate controlling medications recommended at this time. Adequate rate currently Plan: DVT proph-Lovenox Dispo-Med/Tele, PT/OT, placement pending Admission and Anticipated Discharge Date Admission Date: July 25, 2021 Subjective Sooner bedside with . No change from yesterday. No fevers, chills, sweats. Her reports that he thinks she looks better than previous, patient says she feels little bit better but is tired and shaky when working with PT. Otherwise has some swelling in her legs bilaterally, chronic. No other questions complaints no chest pain or chest pressure. Cough is reduced today, occasionally productive for sputum. Review of Systems Review of Systems: 10 point review of systems otherwise negative except as noted above. Physical Exam Physical Exam: General: Laying in bed NAD at time of assessment. Oriented to name, place, and month. Cooperative, pleasant. Obese. HEENT: Small pressure abrasion next to right nare on nasolabial fold from prior PPV mask. Otherwise atraumatic, normocephalic. Visual acuity and hearing grossly intact. Pulm: Moderate air movement. Symmetrical chest rise. No increased work of breathing. No respiratory distress. Cardiac: RRR, -mrg. Radial pulses intact and symmetrical. Abdominal: Pannus present with underlying erythema, powder in place. Nontender on exam. Candidal intertrigo present. Extremities: pitting edema bilaterally, proximal lower extremities and groin with candidal intertrigo. Results & Data Results & Data ([facility]) Vital Signs (Past 12 Hours) Vital Signs Temp Pulse Pulse Resp BP BP Pulse Ox 08/01/21 08:07 69 18 94 08/01/21 08:00 60 08/01/21 07:38 36.4 C L 61 22 126/62 94 08/01/21 03:49 36.5 C 68 22 146/80 H 93 PG Care Time/CCT Total # of Minutes Spent Total Time Spent with Patient: Total time spent is greater than 50% in coordination of care (as documented) at patient's floor/unit and/or counseling patient: Coding Level of Care Code 01149 Subseq Hosp Care Lvl 1 Diagnoses Encephalopathy acute G93.40 Septic shock A41.9; R65.21 Influenza A J10.1 Pneumonia J18.9 Laterality: left Lung location: lower lobe of lung Pneumonia type: due to unspecified organism Hypoxia R09.02 Hypothermia T68.XXXA Encounter type: initial encounter Fungal dermatitis B36.9 Asthma J45.909 Hypertension I10 Diabetes E11.9 Metabolic acidosis E87.2 Hypomagnesemia E83.42 Peripheral edema R60.9 Multiple sclerosis G35 Thrombocytopenia D69.6 Pancreatitis K85.90 Hypothyroidism E03.9 GERD (gastroesophageal reflux disease) K21.9 Tachy-rowena syndrome I49.5 (1) Hypothermia Encounter type: initial encounter Qualified Code(s): T68.XXXA - Hypothermia, initial encounter (2) Pneumonia Laterality: left Lung location: lower lobe of lung Pneumonia type: due to unspecified organism Qualified Code(s): J18.9 - Pneumonia, unspecified organism
[2021-08-02] MEDS: CEFEPIME 2,000 MG in SYRINGE 0 ML IV SCH ×3 (03:44→20:55)
[2021-08-02] MEDS: LEVOTHYROXINE SODIUM 25 MCG TABLET PO SCH (06:08)
[2021-08-02] MEDS: ENOXAPARIN INJ 40 MG/0.4 ML SYR SQ SCH ×2 (06:08→17:45)
[2021-08-02] MEDS: BUDESONIDE 0.5 MG/2 ML VIAL (PULMICORT) NEB SCH ×2 (07:13→19:39)
[2021-08-02] MEDS: FORMOTEROL 20 MCG/2 ML VIAL NEB SCH ×2 (07:13→19:39)
[2021-08-02 09:32] LABS: Hematocrit (blood only) 36.7 % (37-47); Hemoglobin 12.1 g/dL (12.0-16.0); Mean Corpuscular Volume 97.1 fL (80-100); RDW Coefficient of Variation 16.5 % (11.5-14.5); RDW Standard Deviation 56.3 fL (36.4-46.3); Red Blood Count 3.78 M/uL (4.2-5.4); White Blood Count 13.51 K/uL (4.8-10.8)
[2021-08-02 09:40] LABS: BUN Creatinine Ratio 41.9 (10-20); Basophils # (auto) 0.01 K/uL (0-0.2); Basophils % (auto) 0.1 %; Creatinine Clr Calc Pharmacy 112.9 ml/min; Est GFR (African American) 108.1 ml/min; Est GFR (Non-African American) 93.3 ml/min; Immature Granulocytes # (auto) 0.11 K/uL (0.00-0.02); Immature Granulocytes % (auto) 0.8 %; Lymphocytes # (auto) 2.55 K/uL (1.2-3.4); Lymphocytes % (auto) 18.9 %; Mean Platelet Volume 12.7 fL (7.4-10.4); Monocytes # (auto) 1.12 K/uL (0.11-0.59); Monocytes % (auto) 8.3 %; Neutrophils # (auto) 9.32 K/uL (1.4-6.5); Neutrophils % (auto) 68.9 %; Platelet Count 142 K/uL (130-400); Polychromasia 1+; Potassium 3.6 mmol/L (3.5-5.1)
[2021-08-02] MEDS: INSULIN ASPART PER UNIT SC SCH ×4 (10:16→20:55)
[2021-08-02] MEDS: ENALAPRIL MALEATE 10 MG TAB PO SCH (10:23)
[2021-08-02] MEDS: FUROSEMIDE INJ 20 MG/2 ML VIAL IV SCH (10:31)
[2021-08-02] MEDS: FAMOTIDINE 20 MG in SYRINGE 3 ML IV SCH ×2 (10:31→20:55)
--- NOTE | 2021-08-02 16:01 | Hospitalist Progress Note ---
Date of Service August 02, 2021 Assessment & Plan (1) Encephalopathy acute: Plan: 66yo female with history of MS, HTN, DM and Asthma presented with several weeks of progressive dyspnea, acutely worsened on day of admission. Patient hypoxic by EMS to 87% on room air which improved with supplemental O2. Coarse breath sounds with end-expiratory wheezing. Encephalopathy, suspected infectious Influenza A positive on admission Admitting chest x-ray: Suspicious for pneumonia Admitting UA: Fungal contamination, patient with candidal intertrigo CThead: Negative MRI without contrast brain: Negative for stroke, with demyelinating disease. Patient with history of MS known. CTA chest:Cardiomegaly without central pulmonary emboli identified. Trace pleural effusions with left greater than right dependent bibasilar consolidation suggestive of atelectasis versus pneumonia. Hepatomegaly with hepatic steatosis. EEG with encephalopathy, no seizure activity. Neuro consulted, likely, improving infectious encephalopathy not related to MS Of note patient was obtunded for 36 hours, rapidly began to improve starting 07/27 UROLOGIC NURSE consulted: Recommend full liquid diet IDD SI 3, planned to reassess 07/30 to determine readiness for diet upgrade, aspiration precautions, oral thrush covered by IV antifungal Patient with pronounced clinical improvement 07/28 and 07/29, UROLOGIC NURSE reassessed 07/29 and diet advanced. Antibiotics as below (2) Septic shock: Plan: BP was in 70s-80s systolic shortly after admission persistent for 24 hrs but responded to crystalloid boluses Never required vasopressors Typically has HTN and takes benazepril as an outpt Hypertensive 07/28 with normal creatinine, home ROGELIO resumed Beta1, 3Dglucan negative. Fungal cultures remain negative. CBC daily Sputum cultures +Pseudomonas UA with Jazzmine as noted Blood cultures no growth to date with blood fungal culture no growth to date final result pending W/ clinical improvement, negative fungal cultures to date, negative fungitell, and clinical stability will continue intertrigo treatment but discontinued caspofungin. - Leukocytosis improved and downtrending, also on steroids and clinically improved. Continue current tx. No indication to resume antifungals at this time. Per PT recommend return home assist for transfers by spouse/family/caregivers or rehab via SNF if unable. 6 clicks 71.92%, score 10. feels cannot safely assist with transfers at this time. Nursing reports difficult transfer assist at bedside. PT/OT following. - Referalls to [facility]/CC made, pending Pending placement, bed for [facility] may be available this weekend (3) Influenza A: Plan: Uncertain when diagnosed but having sxs about a week or so prior to admission -Monitor, supportive care. Tamiflu not indicated at this time Droplet cautions (4) Pneumonia: Plan: Appreciated on CXR on admission - Repeat CXR 07/30: Persistent alveolar opacity at the left lung base most characteristic of the presence of pneumonia. Small associated left pleural effusion. Flu a positive MRSA swab negative, completed 4 days of doxy then d/luis with negative swab On antibiotics as above Pulm previously consulted. Continue budesonide and Pulmicort neb treatments, may transition to prednisone 40 mg a day for 5 days then discontinued. When improved patient may pursue repeat PFTs, last PFTs in 2013 were normal. Continue pulmonary toilet with flutter valve and incentive spirometry, vest therapy not currently recommended. Pulmonary signed off. Appreciate recommendations. Legionella antigen pending - Sputum positive for Pseudomonas. Cefepime resumed 07/29/21 evening, pt with increased sputum production 07/29. Cefepime started 07/25 on arrival, was d/luis for 1 day after initial eval and - procal, resumed based on clinical sx, repeat xr, and sputum cx. Recommend 7-10 days total tx, will treat until 08/05. May transition to oral Levaquin at hi. Last EKG QTc <480. (5) Hypoxia: Plan: secondary to PNA, asthma exacerbation continue CPAP, O2 as above, SPO2 goal greater than 88% 07/28 on patient breathing well on room air (6) Hypothermia: Plan: Patient hypothermic on arrival to 32.1. She denies exposure. Warming blanket placed. 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 She has a nebulizer at home, no home O2 -continue albuterol nebs, steroids -Steroids converted to orals, 5-day course as noted above per pulm. Appreciate recommendations. (9) Hypertension: Plan: Home antihypertensive held with septic shock ROGELIO resumed 07/29 -Continue to monitor - Adequate control (10) Diabetes: Plan: continue Novolog, accuchecks SSI paramaters tightened slightly 08/02 (11) Metabolic acidosis: Plan: as above, now resolved, unclear of cause as lactates all normal ASA level negative (12) Hypomagnesemia: Plan: replaced and resolved (13) Peripheral edema: Plan: chronic as per likely lymphedema (14) Multiple sclerosis: Plan: no treatment since 2011, followed previously with Dr. Fox at baseline can stand with assistance and pivot from wheelchair to recliner where she sleeps, can pivot into shower chair and shower heself, can cook from wheelchair Mental status normal and clear at baseline, currently greatly improving day by day and near baseline 07/29 Neuro consulted. Current symptoms unlikely to represent MS flare/involvement (15) Thrombocytopenia: Plan: Baseline plts normal likely from sepsis follow CBC Indication for additional steroid/platelet transfusion. No evidence of active bleeding. 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 Likely reactive, no rate controlling medications recommended at this time. Adequate rate currently Plan: DVT proph-Lovenox Dispo-Med/Tele, PT/OT, placement pending Admission and Anticipated Discharge Date Admission Date: July 25, 2021 Subjective Doing well at bedside. No acute change, cough improved today compared to prior. Continues to be tired, working with PT intermittently as able. No fever, chills, sweats. No nausea/vomiting/diarrhea/constipation. Legs unchanged today. Review of Systems Review of Systems: All systems reviewed & are unremarkable except as noted in Subjective Physical Exam Physical Exam: General: No acute distress, alert and oriented x3. Cooperative, pleasant. Obese. HEENT: Small pressure abrasion next to right nare on nasolabial fold from prior PPV mask. Otherwise atraumatic, normocephalic. Visual acuity and hearing grossly intact. Pulm: Moderate air movement. Symmetrical chest rise. No increased work of breathing. No respiratory distress. Cardiac: RRR, -mrg. Radial pulses intact and symmetrical. Abdominal: Pannus present with underlying erythema, powder in place. Nontender on exam. Candidal intertrigo present. Extremities: pitting edema bilaterally, proximal lower extremities and groin with candidal intertrigo. Results & Data Results & Data ([facility]) Vital Signs (Past 12 Hours) Vital Signs Temp Pulse Pulse Resp BP Pulse Ox 08/02/21 15:49 36.4 C L 63 15 136/84 96 08/02/21 13:45 60 08/02/21 12:00 79 16 135/82 95 08/02/21 07:14 72 16 94 08/02/21 07:00 36.6 C 70 14 145/84 H 95 08/02/21 04:28 36.4 C L 56 L 20 145/73 H 94 PG Care Time/CCT Total # of Minutes Spent Total Time Spent with Patient: Total time spent is greater than 50% in coordination of care (as documented) at patient's floor/unit and/or counseling patient: Coding Level of Care Code 66564 Subseq Hosp Care Lvl 2 Diagnoses Encephalopathy acute G93.40 Septic shock A41.9; R65.21 Influenza A J10.1 Pneumonia J18.9 Laterality: left Lung location: lower lobe of lung Pneumonia type: due to unspecified organism Hypoxia R09.02 Hypothermia T68.XXXA Encounter type: initial encounter Fungal dermatitis B36.9 Asthma J45.909 Hypertension I10 Diabetes E11.9 Metabolic acidosis E87.2 Hypomagnesemia E83.42 Peripheral edema R60.9 Multiple sclerosis G35 Thrombocytopenia D69.6 Pancreatitis K85.90 Hypothyroidism E03.9 GERD (gastroesophageal reflux disease) K21.9 Tachy-rowena syndrome I49.5 (1) Pneumonia Laterality: left Lung location: lower lobe of lung Pneumonia type: due to unspecified organism Qualified Code(s): J18.9 - Pneumonia, unspecified organism (2) Hypothermia Encounter type: initial encounter Qualified Code(s): T68.XXXA - Hypothermia, initial encounter
[2021-08-02] MEDS: MICONAZOLE NITRATE POWDER 43 GM EXT SCH ×2 (17:53→20:56)
[2021-08-03] MEDS: CEFEPIME 2,000 MG in SYRINGE 0 ML IV SCH (03:50)
[2021-08-03] MEDS: LEVOTHYROXINE SODIUM 25 MCG TABLET PO SCH (06:03)
[2021-08-03] MEDS: ENOXAPARIN INJ 40 MG/0.4 ML SYR SQ SCH ×2 (06:03→16:42)
[2021-08-03] MEDS: BUDESONIDE 0.5 MG/2 ML VIAL (PULMICORT) NEB SCH ×2 (07:17→19:36)
[2021-08-03] MEDS: FORMOTEROL 20 MCG/2 ML VIAL NEB SCH ×2 (07:17→19:35)
[2021-08-03 08:26] LABS: Basophils # (auto) 0.01 K/uL (0-0.2); Basophils % (auto) 0.1 %; Eosinophils # (auto) 0.51 K/uL (0-0.5); Eosinophils % (auto) 4.9 %; Hematocrit (blood only) 37.4 % (37-47); Hemoglobin 12.2 g/dL (12.0-16.0); Lymphocytes # (auto) 2.13 K/uL (1.2-3.4); Lymphocytes % (auto) 20.3 %; Mean Corpuscular Hemoglobin 31.9 pg (25-34); Mean Corpuscular Hgb Conc 32.6 g/dL (32-36); Mean Corpuscular Volume 97.7 fL (80-100); Mean Platelet Volume 12.6 fL (7.4-10.4); Monocytes # (auto) 1.09 K/uL (0.11-0.59); Monocytes % (auto) 10.4 %; Neutrophils # (auto) 6.67 K/uL (1.4-6.5); Neutrophils % (auto) 63.3 %; Platelet Count 172 K/uL (130-400); RDW Coefficient of Variation 16.5 % (11.5-14.5); RDW Standard Deviation 56.7 fL (36.4-46.3); Red Blood Count 3.83 M/uL (4.2-5.4); White Blood Count 10.51 K/uL (4.8-10.8)
[2021-08-03 08:45] LABS: BUN Creatinine Ratio 32.5 (10-20); Est GFR (African American) 92.6 ml/min; Est GFR (Non-African American) 79.9 ml/min; Potassium 3.7 mmol/L (3.5-5.1)
[2021-08-03] MEDS: FUROSEMIDE INJ 20 MG/2 ML VIAL IV SCH (09:04)
[2021-08-03] MEDS: MICONAZOLE NITRATE POWDER 43 GM EXT SCH ×2 (09:05→21:12)
[2021-08-03] MEDS: FAMOTIDINE 20 MG in SYRINGE 3 ML IV SCH ×2 (09:08→21:13)
[2021-08-03] MEDS: INSULIN ASPART PER UNIT SC SCH ×4 (09:09→21:13)
[2021-08-03] MEDS: ENALAPRIL MALEATE 10 MG TAB PO SCH (09:52)
[2021-08-03] MEDS: levoFLOXacin 750 MG TAB PO SCH (13:08)
--- NOTE | 2021-08-03 16:24 | Hospitalist Progress Note ---
Date of Service August 03, 2021 Assessment & Plan (1) Encephalopathy acute: Plan: 66yo female with history of MS, HTN, DM and Asthma presented with several weeks of progressive dyspnea, acutely worsened on day of admission. Patient hypoxic by EMS to 87% on room air which improved with supplemental O2. Coarse breath sounds with end-expiratory wheezing. Disposition: Patient doing well, leukocytosis has resolved and she is clinically well. He is pending placement as below. Encephalopathy, suspected infectious Influenza A positive on admission Admitting chest x-ray: Suspicious for pneumonia Admitting UA: Fungal contamination, patient with candidal intertrigo CThead: Negative MRI without contrast brain: Negative for stroke, with demyelinating disease. Patient with history of MS known. CTA chest:Cardiomegaly without central pulmonary emboli identified. Trace pleural effusions with left greater than right dependent bibasilar consolidation suggestive of atelectasis versus pneumonia. Hepatomegaly with hepatic steatosis. EEG with encephalopathy, no seizure activity. Neuro consulted, likely, improving infectious encephalopathy not related to MS Of note patient was obtunded for 36 hours, rapidly began to improve starting 07/27 POLITICAL ADVISOR consulted: Recommend full liquid diet IDD SI 3, planned to reassess 07/30 to determine readiness for diet upgrade, aspiration precautions, oral thrush covered by IV antifungal Patient with pronounced clinical improvement 07/28 and 07/29, POLITICAL ADVISOR reassessed 07/29 and diet advanced. Antibiotics as below (2) Septic shock: Plan: BP was in 70s-80s systolic shortly after admission persistent for 24 hrs but responded to crystalloid boluses Never required vasopressors Typically has HTN and takes benazepril as an outpt Hypertensive 07/28 with normal creatinine, home ROGELIO resumed Beta1, 3Dglucan negative. Fungal cultures remain negative. CBC daily Sputum cultures +Pseudomonas UA with Jazzmine as noted Blood cultures no growth to date with blood fungal culture no growth to date final result pending W/ clinical improvement, negative fungal cultures to date, negative fungitell, and clinical stability will continue intertrigo treatment but discontinued caspofungin. - Leukocytosis resolved. Continue current tx. No indication to resume antifungals at this time. Per PT recommend return home assist for transfers by spouse/family/caregivers or rehab via SNF if unable. 6 clicks 71.92%, score 10. feels cannot safely assist with transfers at this time. Nursing reports difficult transfer assist at bedside. PT/OT following. - Referalls to [facility]/CC made, pending Pending placement, bed for [facility] may be available this weekend (3) Influenza A: Plan: Uncertain when diagnosed but having sxs about a week or so prior to admission -Monitor, supportive care. Tamiflu not indicated at this time Droplet cautions (4) Pneumonia: Plan: Appreciated on CXR on admission - Repeat CXR 07/30: Persistent alveolar opacity at the left lung base most characteristic of the presence of pneumonia. Small associated left pleural effusion. Flu a positive MRSA swab negative, completed 4 days of doxy then d/luis with negative swab On antibiotics as above Pulm previously consulted. Continue budesonide and Pulmicort neb treatments, may transition to prednisone 40 mg a day for 5 days then discontinued. When improved patient may pursue repeat PFTs, last PFTs in 2013 were normal. Continue pulmonary toilet with flutter valve and incentive spirometry, vest therapy not currently recommended. Pulmonary signed off. Appreciate recommendations. Legionella antigen pending - Sputum positive for Pseudomonas. Cefepime resumed 07/29/21 evening, pt with increased sputum production 07/29. Cefepime started 07/25 on arrival, was d/luis for 1 day after initial eval and - procal, resumed based on clinical sx, repeat xr, and sputum cx. Recommend 7-10 days total tx, will treat until 08/05. May transition to oral Levaquin at wi. Last EKG QTc <480. (5) Hypoxia: Plan: secondary to PNA, asthma exacerbation continue CPAP, O2 as above, SPO2 goal greater than 88% 07/28 on patient breathing well on room air (6) Hypothermia: Plan: Patient hypothermic on arrival to 32.1. She denies exposure. Warming blanket placed. 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 She has a nebulizer at home, no home O2 -continue albuterol nebs, steroids -Steroids converted to orals, 5-day course as noted above per pulm. Appreciate recommendations. (9) Hypertension: Plan: Home antihypertensive held with septic shock ROGELIO resumed 07/29 -Continue to monitor - Adequate control (10) Diabetes: Plan: continue Novolog, accuchecks SSI paramaters tightened slightly 08/02 (11) Metabolic acidosis: Plan: as above, now resolved, unclear of cause as lactates all normal ASA level negative (12) Hypomagnesemia: Plan: replaced and resolved (13) Peripheral edema: Plan: chronic as per likely lymphedema (14) Multiple sclerosis: Plan: no treatment since 2011, followed previously with Dr. Fox at baseline can stand with assistance and pivot from wheelchair to recliner where she sleeps, can pivot into shower chair and shower heself, can cook from wheelchair Mental status normal and clear at baseline, currently greatly improving day by day and near baseline 07/29 Neuro consulted. Current symptoms unlikely to represent MS flare/involvement (15) Thrombocytopenia: Plan: Baseline plts normal likely from sepsis follow CBC Indication for additional steroid/platelet transfusion. No evidence of active bleeding. 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 Likely reactive, no rate controlling medications recommended at this time. Adequate rate currently Plan: DVT proph-Lovenox Dispo-Med/Tele, PT/OT, placement pending Admission and Anticipated Discharge Date Admission Date: July 25, 2021 Subjective Patient is seen at the bed this morning. Doing well. No fevers, chills, sweats. Energy is better. No nausea/vomiting. Swallowing well with good diet. No questions or concerns Review of Systems Review of Systems: All systems reviewed & are unremarkable except as noted in Subjective Physical Exam Physical Exam: General: No acute distress, alert and oriented x3. Cooperative, pleasant. Obese. HEENT: Small pressure abrasion next to right nare on nasolabial fold from prior PPV mask, healing well and improved from prior. Otherwise atraumatic, normocephalic. Visual acuity and hearing grossly intact. Pulm: Moderate air movement. Symmetrical chest rise. No increased work of breathing. No respiratory distress. Cardiac: RRR, -mrg. Radial pulses intact and symmetrical. Abdominal: Pannus present. Nontender on exam. Candidal intertrigo present. Extremities: pitting edema bilaterally, proximal lower extremities and groin with candidal intertrigo. Results & Data Results & Data ([facility]) Vital Signs (Past 12 Hours) Vital Signs Temp Pulse Pulse Resp BP Pulse Ox 08/03/21 15:28 36.6 C 85 18 127/77 95 08/03/21 14:59 82 08/03/21 11:49 36.5 C 80 18 142/85 H 92 08/03/21 08:01 36.6 C 66 20 112/71 92 08/03/21 08:00 63 08/03/21 07:18 62 18 93 PG Care Time/CCT Total # of Minutes Spent Total Time Spent with Patient: Total time spent is greater than 50% in coordination of care (as documented) at patient's floor/unit and/or counseling patient: Coding Level of Care Code 03886 Subseq Hosp Care Lvl 1 Diagnoses Encephalopathy acute G93.40 Septic shock A41.9; R65.21 Influenza A J10.1 Pneumonia J18.9 Laterality: left Lung location: lower lobe of lung Pneumonia type: due to unspecified organism Hypoxia R09.02 Hypothermia T68.XXXA Encounter type: initial encounter Fungal dermatitis B36.9 Asthma J45.909 Hypertension I10 Diabetes E11.9 Metabolic acidosis E87.2 Hypomagnesemia E83.42 Peripheral edema R60.9 Multiple sclerosis G35 Thrombocytopenia D69.6 Pancreatitis K85.90 Hypothyroidism E03.9 GERD (gastroesophageal reflux disease) K21.9 Tachy-rowena syndrome I49.5 (1) Pneumonia Laterality: left Lung location: lower lobe of lung Pneumonia type: due to unspecified organism Qualified Code(s): J18.9 - Pneumonia, unspecified organism (2) Hypothermia Encounter type: initial encounter Qualified Code(s): T68.XXXA - Hypothermia, initial encounter
[2021-08-04] MEDS: ENOXAPARIN INJ 40 MG/0.4 ML SYR SQ SCH ×2 (05:35→17:30)
[2021-08-04] MEDS: LEVOTHYROXINE SODIUM 25 MCG TABLET PO SCH (05:35)
[2021-08-04] MEDS: BUDESONIDE 0.5 MG/2 ML VIAL (PULMICORT) NEB SCH ×2 (07:42→19:50)
[2021-08-04] MEDS: FORMOTEROL 20 MCG/2 ML VIAL NEB SCH ×2 (07:42→19:50)
[2021-08-04 08:55] LABS: Basophils # (auto) 0.02 K/uL (0-0.2); Basophils % (auto) 0.2 %; Eosinophils # (auto) 0.44 K/uL (0-0.5); Eosinophils % (auto) 4.5 %; Hematocrit (blood only) 37.7 % (37-47); Hemoglobin 12.3 g/dL (12.0-16.0); Immature Granulocytes # (auto) 0.09 K/uL (0.00-0.02); Immature Granulocytes % (auto) 0.9 %; Lymphocytes # (auto) 2.37 K/uL (1.2-3.4); Lymphocytes % (auto) 24.2 %; Mean Corpuscular Hemoglobin 31.7 pg (25-34); Mean Corpuscular Hgb Conc 32.6 g/dL (32-36); Mean Corpuscular Volume 97.2 fL (80-100); Mean Platelet Volume 11.9 fL (7.4-10.4); Monocytes # (auto) 1.09 K/uL (0.11-0.59); Monocytes % (auto) 11.1 %; Neutrophils # (auto) 5.78 K/uL (1.4-6.5); Neutrophils % (auto) 59.1 %; Nucleated RBC # (auto) 0.03 K/uL (0-0); Nucleated RBC % (auto) 0.3 %; Platelet Count 196 K/uL (130-400); RDW Coefficient of Variation 16.3 % (11.5-14.5); RDW Standard Deviation 55.7 fL (36.4-46.3); Red Blood Count 3.88 M/uL (4.2-5.4); White Blood Count 9.79 K/uL (4.8-10.8)
[2021-08-04] MEDS: FUROSEMIDE INJ 20 MG/2 ML VIAL IV SCH (09:05)
[2021-08-04] MEDS: FAMOTIDINE 20 MG in SYRINGE 3 ML IV SCH ×2 (09:05→20:33)
[2021-08-04] MEDS: ENALAPRIL MALEATE 10 MG TAB PO SCH (09:06)
[2021-08-04] MEDS: levoFLOXacin 750 MG TAB PO SCH (09:06)
[2021-08-04] MEDS: MICONAZOLE NITRATE POWDER 43 GM EXT SCH ×2 (09:06→20:27)
[2021-08-04] MEDS: INSULIN ASPART PER UNIT SC SCH ×4 (09:12→20:26)
[2021-08-04 09:25] LABS: BUN Creatinine Ratio 30.6 (10-20); Creatinine Clr Calc Pharmacy 96.1 ml/min; Est GFR (African American) 100.4 ml/min; Est GFR (Non-African American) 86.7 ml/min; Potassium 3.5 mmol/L (3.5-5.1)
[2021-08-04] MEDS: INSULIN GLARGINE SOLOSTAR 100 UNITS/ML 3 ML PEN SC SCH (13:15)
[2021-08-04] MEDS ORDERED: SODIUM CHLORIDE 0.65% NA SOLN 45 ML (OCEAN) PRN (13:28)
--- NOTE | 2021-08-04 13:30 | Hospitalist Progress Note ---
Date of Service August 04, 2021 Assessment & Plan (1) Encephalopathy acute: Plan: 2nd to influenza A infection & superimposed pseudomonas pneumonia with resulting severe sepsis. Resolved. Mental status back to baseline. MRI brain w/o acute findings except sinusitis. (2) Septic shock: Plan: Resolved. Never required pressors fortunately. 2nd to influenza A infection with bacterial superinfection (pseudomonas). Blood cx's remained negative while here. Has completed a course of IV/PO antibiotics. (3) Influenza A: Plan: Clinically resolved. (4) Acute respiratory failure with hypoxia: Plan: 2nd to fluA infection & bacterial superinfection (pseudomonas pneumonia). can't exclude element of pulmonary edema - remains on IV lasix daily. resp failure resolved; stable in RA now. did require NIPPV earlier this stay. (5) Pneumonia: Plan: b/l basilar pneumonia in the setting of influenza A infection. Sputum culture positive for Pseudomonas. Initially was on cefepime IV - now on PO levaquin - finish latter. Clinically resolving. Will need pulmonary f/u post-discharge for PFTs, etc. (6) Hypothermia: Plan: Patient hypothermic on arrival with initial temp of 32.1. 2nd severe sepsis/septic shock. Resolved. TSH and random cortisol normal earlier this stay. 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 Still with wheezing on exam today - schedule albuterol 2 puffs QID. cont maintenance meds - pulmicort, etc. f/u with pulmonary post-discharge. (9) Hypertension: Plan: controlled cont ROGELIO (10) Diabetes: Plan: uncontrolled add lantus 10 units daily adjust novolog if Cr is stable tomorrow resume her metformin BID (11) Metabolic acidosis: Plan: 2nd to sepsis resolved (12) Hypomagnesemia: Plan: replaced and resolved (13) Peripheral edema: Plan: 2nd lymphedema lasix daily (14) Multiple sclerosis: Plan: no treatment since 2011, followed previously with Dr. Dominique Pierre Neurology at baseline can stand with assistance and pivot from wheelchair to recliner where she sleeps, can pivot into shower chair herself, can cook from wheelchair neurology consulted earlier this admission - no MS flare at this time (15) Thrombocytopenia: Plan: 2nd severe sepsis now normalized (16) Pancreatitis: Plan: lipase [address] abd/pelvis with findings suggestive of acute pancreatitis suspect this was 2nd to influenza A as flu can cause mild pancreatitis clinically resolved (17) Hypothyroidism: Plan: cont synthroid 25mcg daily TSH mildly elevated this admission Repeat TSH as outpatient and adjust synthroid if TSH still high then (18) GERD (gastroesophageal reflux disease): Plan: Continue PPI (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 Likely reactive, no rate controlling medications recommended at this time. Adequate rate currently (20) Morbid obesity with BMI of 50.0-59.9, adult: Plan: BMI 56 (21) Sinusitis, acute: Plan: as seen on MRI brain and she is having symptoms recent abx very adequate add siddhartha add nasal steroid add nasal saline spray (22) Osteoarthritis of knees, bilateral: Plan: voltaren gel qid Plan: DVT proph-Lovenox 40mg BID cont PT/OT needs SNF placement for rehab Admission and Anticipated Discharge Date Admission Date: July 25, 2021 Subjective c/o sinus congestion - asks for meds for this c/o b/l knee pain, R>L - asks for meds for this eating better energy better denies dyspnea at rest still coughing no chest pain Review of Systems Review of Systems: gen - no fevers cv - no pain or orthopnea pulm - mild sputum production GI - no nausea or emesis Physical Exam Physical Exam: gen - morbidly obese, NAD, coughing mouth - MMM neck - no JVD heart - RRR, s1 s2 lungs - mild b/l basilar rales, no increased work of breathin abd - soft NT ND BS+ ext - pulses 2+ b/l, <1+ edema b/l musculo - crepitus b/l knees, slight effusion on right, none on left psych - a/o x 3 Results & Data Results & Data ([facility]) Vital Signs (Past 12 Hours) Vital Signs Temp Pulse Pulse Resp BP Pulse Ox 08/04/21 11:22 36.6 C 83 20 117/79 94 08/04/21 08:00 63 08/04/21 07:47 36.5 C 81 18 131/81 99 01/22/22 07:43 55 L 18 92 08/04/21 03:09 36.5 C 85 17 126/79 93 Laboratory Results Laboratory Results - last 24 hr 08/04/21 08/04/21 08/04/21 07:31 08:35 08:35 WBC 9.79 RBC 3.88 L Hgb 12.3 Hct 37.7 MCV 97.2 MCH 31.7 MCHC 32.6 RDW Std Deviation 55.7 H RDW Coeff of Kaia 16.3 H Plt Count 196 MPV 11.9 H Immature Gran % (Auto) 0.9 Neut % (Auto) 59.1 Lymph % (Auto) 24.2 Gage % (Auto) 11.1 Eos % (Auto) 4.5 Baso % (Auto) 0.2 Neut # (Auto) 5.78 Lymph # (Auto) 2.37 Gage # (Auto) 1.09 H Eos # (Auto) 0.44 Baso # (Auto) 0.02 Immature Gran # (Auto) 0.09 H Absolute Nucleated RBC 0.03 H Nucleated RBC % (auto) 0.3 Sodium 144 Potassium 3.5 Chloride 108 H Carbon Dioxide 32 Anion Gap 4 BUN 22 Creatinine 0.72 Est Cr Clr Drug Dosing 96.1 Est GFR ( Amer) 100.4 Est GFR (Non-Af Amer) 86.7 BUN/Creatinine Ratio 30.6 H Glucose 238 H POC Glucose 187 H Calcium 9.0 Magnesium 08/04/21 08/04/21 08/04/21 08:35 11:03 16:10 WBC RBC Hgb Hct MCV MCH MCHC RDW Std Deviation RDW Coeff of Kaia Plt Count MPV Immature Gran % (Auto) Neut % (Auto) Lymph % (Auto) Gage % (Auto) Eos % (Auto) Baso % (Auto) Neut # (Auto) Lymph # (Auto) Gage # (Auto) Eos # (Auto) Baso # (Auto) Immature Gran # (Auto) Absolute Nucleated RBC Nucleated RBC % (auto) Sodium Potassium Chloride Carbon Dioxide Anion Gap BUN Creatinine Est Cr Clr Drug Dosing Est GFR ( Amer) Est GFR (Non-Af Amer) BUN/Creatinine Ratio Glucose POC Glucose 214 H 152 H Calcium Magnesium 1.7 08/04/21 20:12 WBC RBC Hgb Hct MCV MCH MCHC RDW Std Deviation RDW Coeff of Kaia Plt Count MPV Immature Gran % (Auto) Neut % (Auto) Lymph % (Auto) Gage % (Auto) Eos % (Auto) Baso % (Auto) Neut # (Auto) Lymph # (Auto) Gage # (Auto) Eos # (Auto) Baso # (Auto) Immature Gran # (Auto) Absolute Nucleated RBC Nucleated RBC % (auto) Sodium Potassium Chloride Carbon Dioxide Anion Gap BUN Creatinine Est Cr Clr Drug Dosing Est GFR ( Amer) Est GFR (Non-Af Amer) BUN/Creatinine Ratio Glucose POC Glucose 248 H Calcium Magnesium PG Care Time/CCT Total # of Minutes Spent Total Time Spent with Patient: Total time spent is greater than 50% in coordination of care (as documented) at patient's floor/unit and/or counseling patient: Coding Level of Care Code 08721 Subseq Hosp Care Lvl 3 Diagnoses Encephalopathy acute G93.40 Septic shock A41.9; R65.21 Influenza A J10.1 Pneumonia J18.9 Laterality: left Lung location: lower lobe of lung Pneumonia type: due to unspecified organism Hypothermia T68.XXXA Encounter type: initial encounter Fungal dermatitis B36.9 Asthma J45.909 Hypertension I10 Diabetes E11.9 Metabolic acidosis E87.2 Hypomagnesemia E83.42 Peripheral edema R60.9 Multiple sclerosis G35 Thrombocytopenia D69.6 Pancreatitis K85.90 Hypothyroidism E03.9 GERD (gastroesophageal reflux disease) K21.9 Tachy-rowena syndrome I49.5 Morbid obesity with BMI of 50.0-59.9, adult E66.01; Z68.43 Sinusitis, acute J01.90 Osteoarthritis of knees, bilateral M17.0 Acute respiratory failure with hypoxia J96.01 (1) Pneumonia Laterality: left Lung location: lower lobe of lung Pneumonia type: due to unspecified organism Qualified Code(s): J18.9 - Pneumonia, unspecified organism (2) Hypothermia Encounter type: initial encounter Qualified Code(s): T68.XXXA - Hypothermia, initial encounter
[2021-08-04] MEDS: FEXOFENADINE HCL 180 MG TAB PO SCH (13:57)
[2021-08-04] MEDS: FLUTICASONE PROPIONATE NA SPR 16 GM BTL SCH (13:57)
[2021-08-04] MEDS: ALBUTEROL HFA 8 GM INHALER INH SCH ×2 (14:47→19:50)
[2021-08-04] MEDS: DICLOFENAC SOD 1% GEL 100 GM TUBE EXT SCH ×2 (17:30→20:28)
[2021-08-05] MEDS: ENOXAPARIN INJ 40 MG/0.4 ML SYR SQ SCH ×2 (05:54→18:01)
[2021-08-05] MEDS: LEVOTHYROXINE SODIUM 25 MCG TABLET PO SCH (05:54)
[2021-08-05] MEDS: FORMOTEROL 20 MCG/2 ML VIAL NEB SCH ×2 (06:52→19:52)
[2021-08-05] MEDS: ALBUTEROL HFA 8 GM INHALER INH SCH ×4 (06:52→19:53)
[2021-08-05] MEDS: BUDESONIDE 0.5 MG/2 ML VIAL (PULMICORT) NEB SCH ×2 (06:52→19:52)
[2021-08-05 06:59] LABS: Basophils # (auto) 0.02 K/uL (0-0.2); Basophils % (auto) 0.2 %; Eosinophils # (auto) 0.42 K/uL (0-0.5); Eosinophils % (auto) 4.4 %; Hematocrit (blood only) 36.3 % (37-47); Hemoglobin 11.7 g/dL (12.0-16.0); Immature Granulocytes # (auto) 0.09 K/uL (0.00-0.02); Immature Granulocytes % (auto) 0.9 %; Lymphocytes # (auto) 2.52 K/uL (1.2-3.4); Lymphocytes % (auto) 26.3 %; Mean Corpuscular Hemoglobin 31.5 pg (25-34); Mean Corpuscular Hgb Conc 32.2 g/dL (32-36); Mean Corpuscular Volume 97.8 fL (80-100); Mean Platelet Volume 11.8 fL (7.4-10.4); Monocytes # (auto) 1.09 K/uL (0.11-0.59); Monocytes % (auto) 11.4 %; Neutrophils # (auto) 5.45 K/uL (1.4-6.5); Neutrophils % (auto) 56.8 %; Platelet Count 238 K/uL (130-400); RDW Coefficient of Variation 16.6 % (11.5-14.5); RDW Standard Deviation 56.3 fL (36.4-46.3); Red Blood Count 3.71 M/uL (4.2-5.4); White Blood Count 9.59 K/uL (4.8-10.8)
[2021-08-05 07:19] LABS: BUN Creatinine Ratio 30.4 (10-20); Calcium 9.1 mg/dl (8.5-10.1); Creatinine Clr Calc Pharmacy 99.2 ml/min; Est GFR (African American) 104.4 ml/min; Est GFR (Non-African American) 90.1 ml/min; Potassium 3.3 mmol/L (3.5-5.1)
[2021-08-05] MEDS: FUROSEMIDE INJ 20 MG/2 ML VIAL IV SCH (07:58)
[2021-08-05] MEDS: FAMOTIDINE 20 MG in SYRINGE 3 ML IV SCH ×2 (07:58→20:24)
[2021-08-05] MEDS: FLUTICASONE PROPIONATE NA SPR 16 GM BTL SCH (07:59)
[2021-08-05] MEDS: ENALAPRIL MALEATE 10 MG TAB PO SCH (07:59)
[2021-08-05] MEDS: DICLOFENAC SOD 1% GEL 100 GM TUBE EXT SCH ×4 (07:59→20:10)
[2021-08-05] MEDS: INSULIN GLARGINE SOLOSTAR 100 UNITS/ML 3 ML PEN SC SCH (08:00)
[2021-08-05] MEDS: MICONAZOLE NITRATE POWDER 43 GM EXT SCH ×2 (08:00→20:16)
[2021-08-05] MEDS: INSULIN ASPART PER UNIT SC SCH ×4 (08:01→20:11)
[2021-08-05] MEDS: levoFLOXacin 750 MG TAB PO SCH (09:22)
[2021-08-05] MEDS: FEXOFENADINE HCL 180 MG TAB PO SCH (09:22)
[2021-08-05] MEDS ORDERED: POTASSIUM CHLORIDE CRTAB 20 MEQ TABCR PO STA (10:19)
--- NOTE | 2021-08-05 13:32 | Hospitalist Progress Note ---
Date of Service August 05, 2021 Assessment & Plan (1) Encephalopathy acute: Plan: POA. 2nd to influenza A infection & superimposed pseudomonas pneumonia with resulting severe sepsis. Resolved. Mental status back to baseline. MRI brain w/o acute findings except sinusitis. (2) Septic shock: Plan: Resolved. Never required pressors fortunately. 2nd to influenza A infection with bacterial superinfection (pseudomonas). Blood cx's remained negative. Has completed a course of IV/PO antibiotics. Today is last day of levaquin. (3) Influenza A: Plan: Clinically resolved. (4) Acute respiratory failure with hypoxia: Plan: 2nd to fluA infection & bacterial superinfection (pseudomonas pneumonia). can't exclude element of pulmonary edema - remains on IV lasix daily. resp failure resolved; stable in RA now. did require NIPPV earlier this stay. (5) Pneumonia: Plan: b/l basilar pneumonia in the setting of influenza A infection. Sputum culture positive for Pseudomonas. Initially was on cefepime IV - now on PO levaquin - finishes today. Clinically resolving. Will need pulmonary f/u post-discharge for PFTs, etc. (6) Hypothermia: Plan: Patient hypothermic on arrival with initial temp of 32.1. 2nd severe sepsis/septic shock. Resolved. TSH and random cortisol normal earlier this stay. 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 Still with wheezing on exam today - cont scheduled albuterol 2 puffs QID. cont maintenance meds - pulmicort, etc. f/u with pulmonary post-discharge. I can't exclude that some of the wheezing isn't from pulmonary edema ("cardiac" wheezing). (9) Hypertension: Plan: controlled cont ROGELIO (10) Diabetes: Plan: uncontrolled increase lantus 15 units daily adjust novolog - tighten correction/carb ratio (11) Metabolic acidosis: Plan: 2nd to sepsis resolved (12) Hypomagnesemia: Plan: replaced and resolved (13) Peripheral edema: Plan: 2nd lymphedema? obtain dopplers - r/o DVT lasix daily otherwise (14) Multiple sclerosis: Plan: no treatment since 2011, followed previously with Dr. Dominique Pierre Neurology at baseline can stand with assistance and pivot from wheelchair to recliner where she sleeps, can pivot into shower chair herself, can cook from wheelchair neurology consulted earlier this admission - no MS flare at this time (15) Thrombocytopenia: Plan: 2nd severe sepsis now normalized (16) Pancreatitis: Plan: lipase [address] abd/pelvis with findings suggestive of acute pancreatitis suspect this was 2nd to influenza A as flu can cause mild pancreatitis clinically resolved (17) Hypothyroidism: Plan: cont synthroid 25mcg daily TSH mildly elevated this admission Repeat TSH as outpatient and adjust synthroid if TSH still high then (18) GERD (gastroesophageal reflux disease): Plan: Continue PPI (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 Likely reactive, no rate controlling medications recommended at this time. Adequate rate currently (20) Morbid obesity with BMI of 50.0-59.9, adult: Plan: BMI 56 (21) Sinusitis, acute: Plan: as seen on MRI brain recent abx very adequate cont siddhartha cont nasal steroid cont nasal saline spray prn (22) Osteoarthritis of knees, bilateral: Plan: voltaren gel qid Plan: DVT proph-Lovenox 40mg BID cont PT/OT needs SNF placement for rehab attempted to call pt's - # listed in chart is actually the pt's cellphone - pt to update her tonight Admission and Anticipated Discharge Date Admission Date: July 25, 2021 Subjective pt w/o new complaints watching TV during the visit eating well cough/wheezing improving sinus congestion similar or better voltaren gel is helpful for knees tele overnight wnl Review of Systems Review of Systems: gen - weak, but no fevers/chills cv - no cp gi - no abd pain pulm - mild cough, no real sputum Physical Exam Physical Exam: gen - morbidly obese, NAD, coughing at times but not as severe as previous mouth - MMM neck - no JVD heart - RRR, s1 s2 lungs - mild b/l basilar rales, no increased work of breathing; minimal end-exp wheeze b/l abd - soft NT ND BS+ ext - pulses 2+ b/l, 1+ edema b/l psych - a/o x 3 skin - irritated skin prox left medial thigh, slight ulceration; per nursing staff severe intertrigo/candidal type rash in groin, sacral regions, pelvic regions Results & Data Results & Data ([facility]) Vital Signs (Past 12 Hours) Vital Signs Temp Pulse Pulse Resp BP BP Pulse Ox 08/05/21 11:28 36.5 C 102 H 18 149/79 H 93 08/05/21 10:52 99 H 18 92 08/05/21 07:50 36.7 C 85 20 158/68 H 93 08/05/21 07:21 80 08/05/21 06:53 78 18 92 08/05/21 05:10 36.6 C 74 20 129/75 93 Laboratory Results Laboratory Results - last 24 hr 08/04/21 08/04/21 08/05/21 16:10 20:12 06:11 WBC 9.59 RBC 3.71 L Hgb 11.7 L Hct 36.3 L MCV 97.8 MCH 31.5 MCHC 32.2 RDW Std Deviation 56.3 H RDW Coeff of Kaia 16.6 H Plt Count 238 MPV 11.8 H Immature Gran % (Auto) 0.9 Neut % (Auto) 56.8 Lymph % (Auto) 26.3 [place] % (Auto) 11.4 Eos % (Auto) 4.4 Baso % (Auto) 0.2 Neut # (Auto) 5.45 Lymph # (Auto) 2.52 [place] # (Auto) 1.09 H Eos # (Auto) 0.42 Baso # (Auto) 0.02 Immature Gran # (Auto) 0.09 H Sodium Potassium Chloride Carbon Dioxide Anion Gap BUN Creatinine Est Cr Clr Drug Dosing Est GFR ( Amer) Est GFR (Non-Af Amer) BUN/Creatinine Ratio Glucose POC Glucose 152 H 248 H Calcium 08/05/21 08/05/21 08/05/21 06:11 07:11 11:17 WBC RBC Hgb Hct MCV MCH MCHC RDW Std Deviation RDW Coeff of Kaia Plt Count MPV Immature Gran % (Auto) Neut % (Auto) Lymph % (Auto) [place] % (Auto) Eos % (Auto) Baso % (Auto) Neut # (Auto) Lymph # (Auto) [place] # (Auto) Eos # (Auto) Baso # (Auto) Immature Gran # (Auto) Sodium 143 Potassium 3.3 L Chloride 104 Carbon Dioxide 31 Anion Gap 8 BUN 21 Creatinine 0.69 Est Cr Clr Drug Dosing 99.2 Est GFR ( Amer) 104.4 Est GFR (Non-Af Amer) 90.1 BUN/Creatinine Ratio 30.4 H Glucose 167 H POC Glucose 152 H 156 H Calcium 9.1 PG Care Time/CCT Total # of Minutes Spent Total Time Spent with Patient: Total time spent is greater than 50% in coordination of care (as documented) at patient's floor/unit and/or counseling patient: Coding Level of Care Code 81077 Subseq Hosp Care Lvl 2 Diagnoses Encephalopathy acute G93.40 Septic shock A41.9; R65.21 Influenza A J10.1 Acute respiratory failure with hypoxia J96.01 Pneumonia J18.9 Laterality: left Lung location: lower lobe of lung Pneumonia type: due to unspecified organism Hypothermia T68.XXXA Encounter type: initial encounter Fungal dermatitis B36.9 Asthma J45.909 Hypertension I10 Diabetes E11.9 Metabolic acidosis E87.2 Hypomagnesemia E83.42 Peripheral edema R60.9 Multiple sclerosis G35 Thrombocytopenia D69.6 Pancreatitis K85.90 Hypothyroidism E03.9 GERD (gastroesophageal reflux disease) K21.9 Tachy-rowena syndrome I49.5 Morbid obesity with BMI of 50.0-59.9, adult E66.01; Z68.43 Sinusitis, acute J01.90 Osteoarthritis of knees, bilateral M17.0 (1) Hypothermia Encounter type: initial encounter Qualified Code(s): T68.XXXA - Hypothermia, initial encounter (2) Pneumonia Laterality: left Lung location: lower lobe of lung Pneumonia type: due to unspecified organism Qualified Code(s): J18.9 - Pneumonia, unspecified organism
[2021-08-05] MEDS: NYSTATIN SUSP 500,000 U/5 ML UDC PO SCH ×3 (14:52→20:10)
[2021-08-05] MEDS ORDERED: POTASSIUM CHLORIDE CRTAB 20 MEQ TABCR PO ONE (15:00)
--- NOTE | 2021-08-05 17:13 | Ultrasound Report ---
US venous doppler LE BI CLINICAL HISTORY: poor ambulation, edema b/l, eval DVT either leg COMPARISON: None available at the time of this dictation. TECHNIQUE: Bilateral lower extremity real-time compression venous ultrasound with Color Doppler imagi ng. Utilizing real-time ultrasonic imaging multiple real time high-resolution ultrasonic images with comp ression and noncompression maneuvers of the deep venous system in addition to color doppler imaging w ere performed from the common femoral vein through the proximal calf veins. FINDINGS: Currently there is normal compressibility of the deep venous system from the common femoral vein thro ugh the proximal calf veins. No current evidence of acute thrombosis is identified. Impression: No evidence of deep venous thrombus. ACT 112: Negative or not required by law. Electronically signed by: Prudencio Hodge M.D. 08/05/2021 5:12 PM
[2021-08-06] MEDS: ENOXAPARIN INJ 40 MG/0.4 ML SYR SQ SCH ×2 (05:59→17:08)
[2021-08-06] MEDS: LEVOTHYROXINE SODIUM 25 MCG TABLET PO SCH (06:00)
[2021-08-06] MEDS: FORMOTEROL 20 MCG/2 ML VIAL NEB SCH ×2 (07:24→21:17)
[2021-08-06] MEDS: BUDESONIDE 0.5 MG/2 ML VIAL (PULMICORT) NEB SCH ×2 (07:24→21:18)
[2021-08-06] MEDS: ALBUTEROL HFA 8 GM INHALER INH SCH ×4 (07:25→21:18)
[2021-08-06 07:34] LABS: BUN Creatinine Ratio 26.6 (10-20); Calcium 9.3 mg/dl (8.5-10.1); Creatinine Clr Calc Pharmacy 85.6 ml/min; Est GFR (African American) 89.8 ml/min; Est GFR (Non-African American) 77.5 ml/min; Magnesium 1.7 mg/dl (1.7-2.4); Potassium 3.9 mmol/L (3.5-5.1)
[2021-08-06] MEDS: INSULIN GLARGINE SOLOSTAR 100 UNITS/ML 3 ML PEN SC SCH (08:15)
[2021-08-06] MEDS: INSULIN ASPART PER UNIT SC SCH ×4 (08:16→21:21)
[2021-08-06] MEDS: FUROSEMIDE 40 MG/4 ML VIAL IV SCH (08:25)
[2021-08-06] MEDS: DICLOFENAC SOD 1% GEL 100 GM TUBE EXT SCH ×4 (08:25→20:07)
[2021-08-06] MEDS: ENALAPRIL MALEATE 10 MG TAB PO SCH (08:26)
[2021-08-06] MEDS: FLUTICASONE PROPIONATE NA SPR 16 GM BTL SCH (08:27)
[2021-08-06] MEDS: FEXOFENADINE HCL 180 MG TAB PO SCH (08:27)
[2021-08-06] MEDS: NYSTATIN SUSP 500,000 U/5 ML UDC PO SCH ×4 (08:28→20:06)
[2021-08-06] MEDS: MICONAZOLE NITRATE POWDER 43 GM EXT SCH ×2 (08:28→20:07)
[2021-08-06] MEDS: FAMOTIDINE 20 MG in SYRINGE 3 ML IV SCH (08:32)
[2021-08-06] MEDS ORDERED: FUROSEMIDE INJ 20 MG/2 ML VIAL IV SCH (09:00)
[2021-08-06] MEDS ORDERED: POLYETHYLENE (MIRALAX) 17 GM PACK PO ONE (10:15)
[2021-08-06] MEDS ORDERED: SENNA 8.6 MG TAB PO ONE (10:15)
[2021-08-06] MEDS: metFORMIN HCL 500 MG TAB PO SCH ×2 (10:39→16:50)
[2021-08-06] MEDS ORDERED: bisacodyL 10 MG SUPP PR PRN (14:41)
--- NOTE | 2021-08-06 14:42 | Hospitalist Progress Note ---
Date of Service August 06, 2021 Assessment & Plan (1) Encephalopathy acute: Plan: POA. 2nd to influenza A infection & superimposed pseudomonas pneumonia with resulting severe sepsis. Resolved. Mental status normal. MRI brain w/o acute findings except sinusitis. (2) Septic shock: Plan: Resolved. Never required pressors fortunately. 2nd to influenza A infection with bacterial superinfection (pseudomonas). Blood cx's remained negative. Has completed a course of IV/PO antibiotics. (3) Influenza A: Plan: Clinically resolved. (4) Acute respiratory failure with hypoxia: Plan: 2nd to fluA infection & bacterial superinfection (pseudomonas pneumonia). can't exclude element of pulmonary edema - remains on IV lasix daily and diuresing well. resp failure resolved; stable in RA now. did require NIPPV earlier this stay. (5) Pneumonia: Plan: b/l basilar pneumonia in the setting of influenza A infection. Sputum culture positive for Pseudomonas. Completed course of IV cefepime/PO levaquin. Clinically resolved. Will need pulmonary f/u post-discharge for PFTs, etc. (6) Hypothermia: Plan: Patient hypothermic on arrival with initial temp of 32.1. 2nd severe sepsis/septic shock. Resolved. TSH and random cortisol normal earlier this stay. 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 Still with wheezing on exam today - cont scheduled albuterol 2 puffs QID. cont maintenance meds - pulmicort, etc. Increase pulmicort to 1mg BID. f/u with pulmonary post-discharge. I can't exclude that some of the wheezing isn't from pulmonary edema ("cardiac" wheezing). Cont lasix IV. (9) Hypertension: Plan: controlled cont ROGELIO (10) Diabetes: Plan: improved control with adjustments to lantus and novolog (11) Metabolic acidosis: Plan: 2nd to sepsis resolved (12) Hypomagnesemia: Plan: replaced and resolved repeat level am (13) Peripheral edema: Plan: 2nd lymphedema? obtained dopplers - neg for DVT lasix daily otherwise would Rx w/ lasix daily after d/c for maintenance (14) Multiple sclerosis: Plan: no treatment since 2011, followed previously with Dr. Dominique Pierre Neurology at baseline can stand with assistance and pivot from wheelchair to recliner where she sleeps, can pivot into shower chair herself, can cook from wheelchair neurology consulted earlier this admission - no MS flare at this time (15) Thrombocytopenia: Plan: 2nd severe sepsis now normalized (16) Pancreatitis: Plan: lipase [address] abd/pelvis with findings suggestive of acute pancreatitis suspect this was 2nd to influenza A as flu can cause mild pancreatitis clinically resolved (17) Hypothyroidism: Plan: cont synthroid 25mcg daily TSH mildly elevated this admission Repeat TSH as outpatient and adjust synthroid if TSH still high then (18) GERD (gastroesophageal reflux disease): Plan: Continue PPI (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 Likely reactive, no rate controlling medications recommended at this time. Adequate rate currently (20) Morbid obesity with BMI of 50.0-59.9, adult: Plan: BMI 56 (21) Sinusitis, acute: Plan: as seen on MRI brain recent abx very adequate cont siddhartha cont nasal steroid cont nasal saline spray prn (22) Osteoarthritis of knees, bilateral: Plan: voltaren gel qid Plan: DVT proph-Lovenox 40mg BID cont PT/OT needs SNF placement for rehab spoke with pt's this evening - gave update awaiting SNF dc/ tele - move to med/surg Admission and Anticipated Discharge Date Admission Date: July 25, 2021 Subjective tele overnight wnl feels good still coughing/still wheezing but overall feels good eating well asks for something for her bowels no BM in several days ordered dulcolax suppos x 1 later in the afternoon, by report, she needed gentle manual disimpaction Review of Systems Review of Systems: gen - no fever GI - no pain cv - no orthopnea pulm - no dyspnea despite cough Physical Exam Physical Exam: gen - morbidly obese, NAD, looks good today mouth - MMM neck - no JVD heart - RRR, s1 s2 lungs - minimal b/l basilar rales, no increased work of breathing; minimal end- exp wheeze b/l abd - soft NT ND BS+ ext - pulses 2+ b/l, 1+ edema b/l psych - a/o x 3 Results & Data Results & Data ([facility]) Vital Signs (Past 12 Hours) Vital Signs Temp Pulse Resp BP BP Pulse Ox 08/06/21 14:30 88 18 95 08/06/21 11:57 36.9 C 88 18 124/79 95 08/06/21 11:25 79 18 93 08/06/21 08:04 36.7 C 91 H 20 118/79 95 08/06/21 08:00 36.5 C 100 H 16 171/92 H 93 08/06/21 07:25 90 18 95 08/06/21 04:06 36.5 C 77 20 125/69 94 Laboratory Results BMP wnl PG Care Time/CCT Total # of Minutes Spent Total Time Spent with Patient: Total time spent is greater than 50% in coordination of care (as documented) at patient's floor/unit and/or counseling patient: Coding Level of Care Code 47042 Subseq Hosp Care Lvl 2 Diagnoses Encephalopathy acute G93.40 Septic shock A41.9; R65.21 Influenza A J10.1 Acute respiratory failure with hypoxia J96.01 Pneumonia J18.9 Laterality: left Lung location: lower lobe of lung Pneumonia type: due to unspecified organism Hypothermia T68.XXXA Encounter type: initial encounter Fungal dermatitis B36.9 Asthma J45.909 Hypertension I10 Diabetes E11.9 Metabolic acidosis E87.2 Hypomagnesemia E83.42 Peripheral edema R60.9 Multiple sclerosis G35 Thrombocytopenia D69.6 Pancreatitis K85.90 Hypothyroidism E03.9 GERD (gastroesophageal reflux disease) K21.9 Tachy-rowena syndrome I49.5 Morbid obesity with BMI of 50.0-59.9, adult E66.01; Z68.43 Sinusitis, acute J01.90 Osteoarthritis of knees, bilateral M17.0 (1) Hypothermia Encounter type: initial encounter Qualified Code(s): T68.XXXA - Hypothermia, initial encounter (2) Pneumonia Laterality: left Lung location: lower lobe of lung Pneumonia type: due to unspecified organism Qualified Code(s): J18.9 - Pneumonia, unspecified organism
[2021-08-06] MEDS: guaiFENesin 600 MG TABCR PO SCH (20:06)
[2021-08-07] MEDS: ENOXAPARIN INJ 40 MG/0.4 ML SYR SQ SCH (05:32)
[2021-08-07] MEDS: LEVOTHYROXINE SODIUM 25 MCG TABLET PO SCH (05:32)
[2021-08-07] MEDS: BUDESONIDE 0.5 MG/2 ML VIAL (PULMICORT) NEB SCH (08:02)
[2021-08-07] MEDS: ALBUTEROL HFA 8 GM INHALER INH SCH ×2 (08:03→11:15)
[2021-08-07] MEDS: FORMOTEROL 20 MCG/2 ML VIAL NEB SCH (08:03)
[2021-08-07] MEDS ORDERED: SENNA 8.6 MG TAB PO SCH (09:00)
[2021-08-07] MEDS ORDERED: POLYETHYLENE (MIRALAX) 17 GM PACK PO SCH (09:00)
[2021-08-07 09:01] LABS: BUN Creatinine Ratio 30.7 (10-20); Calcium 9.6 mg/dl (8.5-10.1); Creatinine Clr Calc Pharmacy 90.2 ml/min; Est GFR (African American) 95.6 ml/min; Est GFR (Non-African American) 82.5 ml/min; Magnesium 1.6 mg/dl (1.7-2.4); Potassium 3.8 mmol/L (3.5-5.1)
[2021-08-07] MEDS: ENALAPRIL MALEATE 10 MG TAB PO SCH (09:28)
[2021-08-07] MEDS: NYSTATIN SUSP 500,000 U/5 ML UDC PO SCH (09:28)
[2021-08-07] MEDS: FEXOFENADINE HCL 180 MG TAB PO SCH (09:28)
[2021-08-07] MEDS: metFORMIN HCL 500 MG TAB PO SCH (09:29)
[2021-08-07] MEDS: FUROSEMIDE 40 MG/4 ML VIAL IV SCH (09:29)
[2021-08-07] MEDS: guaiFENesin 600 MG TABCR PO SCH (09:31)
[2021-08-07] MEDS: DICLOFENAC SOD 1% GEL 100 GM TUBE EXT SCH (09:31)
[2021-08-07] MEDS: MICONAZOLE NITRATE POWDER 43 GM EXT SCH (09:32)
[2021-08-07] MEDS: FLUTICASONE PROPIONATE NA SPR 16 GM BTL SCH (09:32)
[2021-08-07] MEDS: INSULIN GLARGINE SOLOSTAR 100 UNITS/ML 3 ML PEN SC SCH (09:32)
[2021-08-07] MEDS: INSULIN ASPART PER UNIT SC SCH (09:39)
[2021-08-07] MEDS ORDERED: MAGNESIUM SULFATE / D5W 1 GM/100 ML BAG IV SCH (10:00)
--- NOTE | 2021-08-07 11:38 | Discharge Summary ---
Date of Service date of admission - July 25, 2021 date of discharge - August 07, 2021 Admission HPI Per Admitting Provider Dali Smyth is a 66yo female with history of DM, HTN, Asthma and MS presenting with hypoxic respiratory failure. Patient is a poor historian and is unclear of many details of events prior to arrival. She reports ongoing shortness of breath since [place]. Progressive in nature. She has had some chest tightness and wheeze as well. She has a cough productive for yellow sputum and endorses occasional night sweats since [place] as well. She denies fever, chills, abdominal pain, nausea, vomiting, diarrhea or constipation. She states she is able to feel when her bladder is full and is able to empty without difficulty. Appetite and PO intake has been adequate and BMs have been normal. She reports compliance with her medications. Patient presently living at home with her . She is largely wheelchair and bedbound secondary to MS. Patient was recently diagnosed with Influenza A. She is uncertain exactly when - possibly one week ago. She was also recently started on Augmentin. EMS was contacted today for progressive SOB. By report, patient saturating 87% on room air upon EMS arrival. In the ER patient found to be hypothermic with T=32.3. Warming blanket placed. O2 saturations of appx 88% on NC, declined when patient fell asleep. Oxymask placed and patient repositioned in bed. Presently 97% on 4L oxymask. No additional complaints. ER Course: Cefepime, Albuterol neb, NSS x 1500mL Patient is fully vaccinated against Covid-19 as well as influenza Principal Diagnosis 1. influenza A infection 2. pseudomonas pneumonia 3. septic shock 4. metabolic encephalopathy 2nd to #1 5. acute hypoxic respiratory failure 2nd to #1, #2 Discharge Exam gen - morbidly obese, NAD mouth - MMM neck - no JVD heart - RRR, s1 s2 lungs - minimal b/l basilar rales, no increased work of breathing; minimal end- exp wheeze b/l abd - soft NT ND BS+ ext - pulses 2+ b/l, 1+ edema b/l psych - a/o x 3 Discharge Data Allergies Allergy/AdvReac Type Severity Reaction Status Date / Time codeine AdvReac Mild NAUSEATED Verified 07/24/21 22:09 Consultations Neurology Pulmonology Cardiology PT, OT Speech Therapy Wound Care Procedures Performed EEG - IMPRESSION: This is an abnormal EEG in a patient with altered mentation due to genearlized background slowing with occassional triphasic waves suggestive of a non specific encephalopathy. No epileptifom discharges or electrographic seizures are recorded. Ordered Studies Chest X-Ray 07/24/21 21:31 XR chest 1V portable CLINICAL HISTORY: SOB. COMPARISON STUDY: 07/10/2021 TECHNIQUE: 1 view of the chest FINDINGS: Single frontal view of the chest demonstrates the heart size to be at the upper limits of normal to mildly enlarged. There is a decreased inspiratory effort with elevation of the hemidiaphragms and crowding of the bronchovascular markings at the lung bases and centrally. The lungs are clear of alveolar opacities. There is no evidence for pleural effusion. There is no evidence for vascular congestion. There is no acute osseous pathology. IMPRESSION: There is a decreased inspiratory effort with otherwise no acute chest disease. ACT 112: Negative or not required by law. Electronically signed by: Mode Joshi M.D. 07/25/2021 7:09 AM Abdomen/Pelvis CT 07/25/21 09:10 CT abd pelvis wo con CLINICAL HISTORY: sepsis,UTI,h/o MS,assess for kidney stone TECHNIQUE: Helical axial images of the abdomen and pelvis were obtained. Automated dose lowering techniques and/or adjustment according to patient size were utilized for this exam. This exam was performed without intravenous contrast. COMPARISON: None available at the time of this dictation. FINDINGS: Exam is highly limited by beam hardening, photon starvation, and streak artif act. Lower chest: Atelectasis is seen in the left lower lobe and to a lesser extent in the right lung base. Liver: Unremarkable. No focal lesions are seen. Gallbladder and biliary tree: No calcified gallstones. Normal caliber wall. No intra- or extrahepatic biliary ductal dilation. Pancreas: Diffuse fat stranding seen about the pancreas. Evaluation of the pancreatic parenchyma is limited by patient body habitus. Spleen: Unremarkable. Adrenals: Unremarkable. Kidneys and ureters: There is an exophytic lesion arising from the left kidney measuring 18 mm. It does not definitely measure fluid density. Bladder: Ramirez catheter is seen. Reproductive organs: Unremarkable. Bowel: Diverticulosis is seen without evidence of diverticulitis. Appendectomy clip is seen. Lymph nodes Retroperitoneal: Unremarkable. Mesenteric: Unremarkable. Pelvic: Unremarkable. Peritoneum: Peripancreatic fat stranding is seen. Vessels: Atherosclerotic calcifications are seen. Abdominal wall: A large inferiorly oriented ventral hernia is seen in the lower abdomen containing multiple loops of bowel. There is no evidence of obstruction or wall thickening. Skin thickening is seen in the pannus with associated fat stranding. Bones: Unremarkable. IMPRESSION: 1. Highly limited exam. Peripancreatic stranding is seen which is favored to represent acute pancreatitis. The pancreatic parenchyma is not well visualized. 2. Left renal exophytic lesion is seen. It is not definitely measure fluid density on today's exam, however density measurements may be inaccurate due to streak artifacts and photon starvation. If there is clinical concern, nonemergent ultrasound can be performed. 3. No obstructive nephrolithiasis is seen. ACT 112: Negative or not required by law. Electronically signed by: Prudencio Hodge M.D. 07/25/2021 11:[address] 07/25/21 17:06 CT head/brain wo con CLINICAL HISTORY: 66 years-old Female with altered mental status. Acutely altered mental status TECHNIQUE: Multiple axial CT images of the head were obtained without contrast. A dose lowering technique was utilized adhering to the principles of ALARA. COMPARISON: Head CT 03/26/2012 FINDINGS: No acute intracranial hemorrhage, midline shift, intracranial mass, hydrocephalus, territorial ischemia or abnormal extra-axial collection. Cavum septum pellucidum and vergae. Study is limited secondary to motion degradation. The study was repeated several times with all studies demonstrate motion degradation. Patchy white matter hypodensities suggest chronic microvascular ischemic disease, progressed from prior. The posterior fossa structures are not well evaluated secondary to motion artifact. The calvarium is intact. Mastoid air cells are clear. There is severe complete opacification of the ethmoid air cells and left frontal sinus. Periosteal thickening of the maxillary sinuses compatible with chronic sinus disease. IMPRESSION: Motion degraded exam. No acute intracranial abnormality identified. ACT 112: Negative or not required by law. The above report was generated using voice recognition software. It may contain grammatical, syntax or spelling errors. Electronically signed by: Pedro Lucas M.D. 07/25/2021 6:12 PM Chest CTA 07/25/21 17:07 CT angio chest PE protocol CT DOSE: 3538.17 mGy.cm HISTORY: 66 years-old Female with PE. Acute shortness breath with altered mental status. CT abdomen and pelvis of same day, CTA chest 10/30/2010 TECHNIQUE: Multiple CTA images of the chest were obtained after the intravenous administration of 112 ml Optiray. Coronal and sagittal MIPS were obtained from the axial data set and were submitted for review. All measurements were obtained according to NASCET criteria. A dose lowering technique was utilized adhering to the principles of ALARA. COMPARISON: CTA chest 10/30/2010, CT abdomen and pelvis 07/25/2021 FINDINGS: Motion degraded exam. CTA: Moderate cardiomegaly. There is no pericardial effusion. Mild coronary artery calcifications. Atherosclerosis of the aorta without aneurysm or dissection identified. Suboptimal evaluation of the pulmonary arterial tree secondary to respiratory motion artifact and contrast bolus timing. No central pulmonary emboli are identified. CT CHEST: Unremarkable thyroid. No adenopathy. Trace pleural effusions with dependent bibasilar consolidation, left greater than right. Limited evaluation of the lungs secondary to respiration. Central airways appear generally patent. Hepatic steatosis with hepatomegaly. No acute process of the imaged upper abdomen. Unremarkable soft tissues. Degenerative changes of the shoulders and spine. IMPRESSION: 1. Limited exam as above. Cardiomegaly without central pulmonary emboli identified. 2. Trace pleural effusions with left greater than right dependent bibasilar consolidation suggestive of atelectasis versus pneumonia. 3. Hepatomegaly with hepatic steatosis. ACT 112: Negative or not required by law. The above report was generated using voice recognition software. It may contain grammatical, syntax or spelling errors. Electronically signed by: Pedro Lucas M.D. 07/25/2021 6:20 PM Brain MRI 07/25/21 18:55 MRI OF THE BRAIN WITHOUT CONTRAST CLINICAL HISTORY: r/o stroke,unresponsive COMPARISON STUDY: Head CT July 25, 2021. TECHNIQUE: Utilizing a 1.5 Seema magnet and dedicated coil, multiplanar, multiecho imaging of the brain was performed without IV contrast. FINDINGS: This exam is mildly compromised by artifact. However, there are no foci of restricted diffusion to suggest acute infarct. No acute intracranial hemorrhage, midline shift or mass effect is present. Ventricular system is unremarkable. Basal cisterns are patent. There are no extra axial collections. Incidental note is made of a cavum septum pellucidum. White matter T2 hyperintense foci are noted, probably periventricular in distribution. No intracranial masses are identified on this unenhanced exam. Calvarial signal is normal. Air-fluid levels are noted within the bilateral maxillary and sphenoid s inuses. Ethmoid sinuses are largely opacified. The left frontal sinus is opacified. Right frontal sinus is partially opacified. IMPRESSION: 1. No acute intracranial findings. 2. Exam mildly compromised by artifact. 3. Multiple white matter T2 hyperintense foci, predominantly periventricular in distribution. These statistically reflect small vessel disease although demyelinating disease could have this imaging appearance. 4. Paranasal sinus disease, as described above. ACT 112: Negative or not required by law. Electronically signed by: Pete Aguilar M.D. 07/26/2021 8:25 AM Chest X-Ray 07/26/21 07:31 XR chest 1V portable HISTORY: 66 years-old Female hypoxia,f/u for PNA acute hypoxia COMPARISON: CTA chest 07/25/2021, chest radiograph 07/24/2021 TECHNIQUE: Portable AP view of the chest FINDINGS: The cardiac silhouette is enlarged. No pneumothorax. Interstitial coarsening with ill-defined bibasilar airspace opacities, slightly progressed from prior. There is blunting of the lateral left costophrenic angle. Degenerative changes of the shoulders and spine. IMPRESSION: Small left pleural effusion with mildly progressed bibasilar opacities suspicious for pneumonia. ACT 112: Negative or not required by law. The above report was generated using voice recognition software. It may contain grammatical, syntax or spelling errors. Electronically signed by: Pedro Lucas M.D. 07/26/2021 8:33 AM Chest X-Ray 07/30/21 08:15 XR chest 1V portable CLINICAL HISTORY: cough, pseudomonal sputum, serial exam. COMPARISON STUDY: 07/26/2021 TECHNIQUE: 1 view of the chest FINDINGS: Single frontal view of the chest demonstrates the heart to again be enlarged. Compared to the previous examination, increased alveolar opacities again seen at the left lung base in the retrocardiac region. The remainder of the lungs are clear. There is again a small left pleural effusion with no evidence for right pleural effusion. There is no evidence for vascular congestion. There is no acute osseous pathology. IMPRESSION: Persistent alveolar opacity at the left lung base most characteris tic of the presence of pneumonia. Small associated left pleural effusion. ACT 112: Negative or not required by law. Electronically signed by: Mode Joshi M.D. 07/30/2021 8:34 AM Venous Doppler Study 08/05/21 13:30 US venous doppler LE CLINICAL HISTORY: poor ambulation, edema b/l, eval DVT either leg COMPARISON: None available at the time of this dictation. TECHNIQUE: Bilateral lower extremity real-time compression venous ultrasound with Color Doppler imaging. Utilizing real-time ultrasonic imaging multiple real time high-resolution ultras onic images with compression and noncompression maneuvers of the deep venous system in addition to color doppler imaging were performed from the common femoral vein through the proximal calf veins. FINDINGS: Currently there is normal compressibility of the deep venous system from the common femoral vein through the proximal calf veins. No current evidence of acute thrombosis is identified. Impression: No evidence of deep venous thrombus. ACT 112: Negative or not required by law. Electronically signed by: Prudencio Hodge M.D. 08/05/2021 5:12 PM Hospital Course (1) Encephalopathy acute: Present on admission. 2nd to influenza A infection & superimposed pseudomonas pneumonia with resulting severe sepsis. Resolved with supportive care measures, antibiotics, etc. Mental status returned to normal. Of note - MRI brain did not show stroke or other acute findings except sinusitis. (2) Septic shock: 2nd to influenza A infection with bacterial superinfection (pseudomonas). Blood cx's remained negative. Completed a course of IV/PO antibiotics for the pseudmonas. Never required pressors for her sepsis. (3) Influenza A: Clinically resolved with supportive care. (4) Acute respiratory failure with hypoxia: 2nd to fluA infection & bacterial superinfection (pseudomonas pneumonia). Could not exclude element of pulmonary edema - received IV diuresis with good response to such. Did require NIPPV early in her stay, then was weaned, and ultimately all supplemental O2 was discontinued. She was stable in room air for several days prior to discharge. (5) Pneumonia: b/l basilar pneumonia in the setting of influenza A infection. Sputum culture positive for Pseudomonas. Completed course of IV cefepime/PO levaquin. Clinically resolved with such. Will need pulmonary f/u post-discharge for PFTs, etc. (6) Hypothermia: Patient was hypothermic on arrival to the [facility] ER with initial temp of 32.1. 2nd severe sepsis/septic shock. Resolved with care measures as above. TSH and random cortisol were both normal. (7) Fungal dermatitis: continue miconazole powder bid (groin, etc). (8) Asthma: s/p PO steroid burst x 5 days early in the admission. In addition was treated with inhaled corticosteroids and bronchodilators. I could not exclude that some of the wheezing wasn't from pulmonary edema. Again recommend she establish care with [facility] for PFTs, etc. (9) Hypertension: controlled throughout the stay. cont benazepril. (10) Diabetes: Continue metformin, lantus, and novolog. (11) Metabolic acidosis: 2nd to sepsis resolved (12) Hypomagnesemia: replaced and resolved (13) Peripheral edema: 2nd lymphedema. obtained venous dopplers - negative for DVT. would continue lasix 20mg daily upon discharge. (14) Multiple sclerosis: no treatment since 2011, followed previously with Dr. Jay Mcfarland [facility]. at baseline can stand with assistance and pivot from wheelchair to recliner where she sleeps, can pivot into shower chair herself, can cook from wheelchair. neurology consulted earlier in the admission - no MS flare at any point. 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 Also had what was initially thought to be sinus tach in 120s but alternating back and forth from tachycardia to bradycardia. Cardiology consulted. Likely reactive, no rate controlling medications recommended. Once her sepsis improved/resolved she had no further heart rate issues. (20) Morbid obesity with BMI of 50.0-59.9, adult: BMI 55 (21) Sinusitis, acute: as seen on MRI brain completed course of antibiotics cont siddhartha cont nasal steroid cont nasal saline spray prn (22) Osteoarthritis of knees, bilateral: voltaren gel qid (23) Abnormal finding on diagnostic imaging of left kidney: ?abnormal appearing cyst, L kidney advise follow-up for this with urology - likely to need additional imaging Total Time Total Time Spent Total Time Spent (In Minutes): 45 Discharge Plan Discharge Items Patient Disposition: Transfer Shelter Fac Reason For Visit: Altered Mental Status, Low Oxygen Levels Discharge Diagnosis: 1. Altered mental status - due to influenza type A infection & pseudomonas pneumonia 2. Acute sinusitis - resolving 3. Septic Shock - resolved 4. Asthma 5. Diabetes 6. Multiple sclerosis 7. Chronic edema/lymphedema of legs Condition on Discharge: Fair Activity: Resume your previous activity Non-emergency contact: Primary Care Provider and Nurse Ortho Call non-emergency contact if: you have any medication questions, your symptoms worsen, your pain is not controlled, you have a fever, your wound has increased redness and your wound has increased drainage Follow-up/Referrals: [facility] [Provider Group] (first available - 3-4 weeks; dx asthma, need for PFTs, etc.) Vernon Sanz MD [Primary Care Provider] - (1 week from discharge from SNF ) Diet: Carb Consistent or DM2 Addtl Attending Provider Instructions: Patient was hospitalized for the problems listed above in "discharge diagnoses." Flu A infection, pseudomonas pneumonia, and fungal rash/nataliya are all improving and/or resolving. Altered mental status was due to her flu A infection and pneumonia. Recommendations - 1. ramirez catheter -- NEW ramirez placed the AM of 08/07/21 just prior to transfer to [facility]. Ramirez is in place due to significant skin breakdown/rash and known urinary incontinence. Ideally the catheter is removed in the next 1-2 weeks once the rash and skin improve. 2. check CBC, BMP, and magnesium in 4-5 days for stability. 3. check TSH in 3-4 weeks. If the TSH remains high please increase levothyroxine as needed. Defer that decision to medical records manager at SNF. 4. patient needs f/u with [facility] for her asthma; needs PFTs, possibly sleep study, etc. 5. check fingerstick blood sugars before breakfast, before lunch, before dinner, and at bedtime. Pending Studies at Discharge: No Stand-Alone Forms: [employer] Skilled Items Patient informed of condition?: Yes DNR: No Discharge Level of Care: Skilled Communicable Disease: No Discharge Prognosis: Stable Lines: None Urinary Catheter: Yes Medications and DC Order Prescriptions: New Desenex 2 % Powder 1 applic EXT BID Qty: 43 RF: 0 sennosides [Senokot] 8.6 mg Tablet 17.2 mg PO QAM Qty: 60 RF: 0 nystatin 100,000 unit/mL Suspension 5 ml PO QID 10 Days Qty: 200 RF: 0 polyethylene glycol 3350 [Miralax] 17 gram Powder In Packet 17 g PO DAILY Qty: 1 RF: 0 fexofenadine 180 mg Tablet 180 mg PO QAM Qty: 30 RF: 1 insulin aspart U-100 [Novolog U-100 Insulin aspart] 100 unit/mL Solution 1 sliding scale dose SC AC Qty: 1 RF: 0 fluticasone propionate 50 mcg/actuation [place],Suspension 2 spray NA DAILY Qty: 1 RF: 2 Saline Mist 0.65 % Aerosol,[place] 2 spray NA Q1H PRN (Reason: nasal congestion) Qty: 1 RF: 0 Lantus Solostar U-100 Insulin 100 unit/mL (3 mL) Insulin Pen 15 unit SC DAILY Qty: 1 RF: 0 diclofenac sodium [Voltaren Arthritis Pain] 1 % Gel 4 g EXT QID Qty: 1 RF: 2 guaifenesin [Mucinex] 600 mg Tablet Extended Release 12hr 1,200 mg PO Q12 10 Days Qty: 40 RF: 0 furosemide [Lasix] 20 mg tablet 20 mg PO QAM Qty: 30 RF: 2 potassium chloride 10 mEq tablet extended release 10 meq PO DAILY Qty: 30 RF: 2 magnesium oxide 400 mg (241.3 mg magnesium) tablet 400 mg PO DAILY Qty: 30 RF: 2 Continued metformin 500 mg tablet 500 mg PO BID RF: 0 levothyroxine 25 mcg tablet 25 mcg PO DAILY RF: 0 omeprazole 20 mg capsule,delayed release(DR/EC) 20 mg PO DAILY RF: 0 fluticasone propion-salmeterol [Wixela Inhub] 100-50 mcg/dose blister with device 1 ea INHALATION BID RF: 0 benazepril 40 mg tablet 40 mg PO DAILY RF: 0 albuterol sulfate 2.5 mg /3 mL (0.083 %) solution for nebulization 2.5 mg inhalation DIRECTED PRN (Reason: Shortness Of Breath Or Wheezing) RF: 0 Discontinued ibuprofen 800 mg tablet 800 mg PO TID PRN (Reason: Pain) RF: 0 amoxicillin-pot clavulanate 875-125 mg tablet 1 tab PO BID RF: 0 Discharge Orders: Discharge Order (Routine); Ordered 08/07/21 Ordered By: Clive Christianson/Other Patient Handouts: Managing Type 2 Diabetes Admission Data Admit Date/Time: 07/25/21 01:21 Attending Provider: Clive Benton Admit Provider: Veroinca Butterfield Primary Care Provider: Vrenon Sanz Other Providers: Annabelle Buenrostro at [place] ; [facility] ; Veronica Butterfield ; Jay Fox ; Brendan Sullivan ; Nuno Fisher Other Interventions: Discharge Summary Assessment (RN) Last Done: 08/07/21 10:50 Coding Level of Care Code D/C DAY MANAGEMENT >30 MINS Diagnoses Encephalopathy acute G93.40 Septic shock A41.9; R65.21 Influenza A J10.1 Acute respiratory failure with hypoxia J96.01 Pneumonia J18.9 Laterality: left Lung location: lower lobe of lung Pneumonia type: due to unspecified organism Hypothermia T68.XXXA Encounter type: initial encounter Fungal dermatitis B36.9 Asthma J45.909 Hypertension I10 Diabetes E11.9 Metabolic acidosis E87.2 Hypomagnesemia E83.42 Peripheral edema R60.9 Multiple sclerosis G35 Thrombocytopenia D69.6 Pancreatitis K85.90 Hypothyroidism E03.9 GERD (gastroesophageal reflux disease) K21.9 Tachy-rowena syndrome I49.5 Morbid obesity with BMI of 50.0-59.9, adult E66.01; Z68.43 Sinusitis, acute J01.90 Osteoarthritis of knees, bilateral M17.0 Abnormal finding on diagnostic imaging of left kidney R93.422
== END 2021-08-07 12:11 | DRG 871 ==
LOC: ED 21:11 → SUATTDRO 07-25 01:21 → EDINP 07-25 01:21 → 2S 07-25 19:22 → 3W 08-06 14:42

== ENCOUNTER 2021-08-15 18:01 | Observation (INO) ==
--- NOTE | 2021-08-15 18:21 | CT Scan Report ---
CT head/brain wo con CLINICAL HISTORY: 66 years-old Female with Stroke Like Symptoms. Acute stroke like symptoms TECHNIQUE: Multiple axial CT images of the head were obtained without contrast. A dose lowering tech nique was utilized adhering to the principles of ALARA. COMPARISON: Head CT 07/25/2021 FINDINGS: No acute intracranial hemorrhage, midline shift, intracranial mass, hydrocephalus, territorial ischem ia or abnormal extra-axial collection. Motion degraded exam. The study was then repeated. Involutiona l changes with white matter hypodensities suggestive of chronic microvascular ischemic disease. Cavum septum pellucidum and vergae. The calvarium is intact. Mastoid air cells are clear. Severe chronic mucoperiosteal thickening of th e paranasal sinuses. Unremarkable soft tissues and orbits. IMPRESSION: Motion degraded exam. No acute intracranial abnormality identified. ACT 112: Negative or not required by law. The above report was generated using voice recognition software. It may contain grammatical, syntax o r spelling errors. Electronically signed by: Pedro Lucas M.D. 08/15/2021 6:20 PM
[2021-08-15 18:28] LABS: Basophils # (auto) 0.06 K/uL (0-0.2); Basophils % (auto) 0.7 %; Eosinophils # (auto) 0.45 K/uL (0-0.5); Eosinophils % (auto) 5.6 %; Hematocrit (blood only) 41.3 % (37-47); Hemoglobin 13.4 g/dL (12.0-16.0); Immature Granulocytes # (auto) 0.02 K/uL (0.00-0.02); Immature Granulocytes % (auto) 0.2 %; Lymphocytes # (auto) 2.92 K/uL (1.2-3.4); Lymphocytes % (auto) 36.2 %; Mean Corpuscular Hemoglobin 32.4 pg (25-34); Mean Corpuscular Hgb Conc 32.4 g/dL (32-36); Mean Platelet Volume 12.4 fL (7.4-10.4); Monocytes # (auto) 1.03 K/uL (0.11-0.59); Monocytes % (auto) 12.8 %; Neutrophils # (auto) 3.59 K/uL (1.4-6.5); Neutrophils % (auto) 44.5 %; Platelet Count 240 K/uL (130-400); RDW Coefficient of Variation 17.4 % (11.5-14.5); RDW Standard Deviation 62.7 fL (36.4-46.3); Red Blood Count 4.13 M/uL (4.2-5.4); White Blood Count 8.07 K/uL (4.8-10.8)
[2021-08-15 18:35] LABS: iSTAT Creatinine 2.1 mg/dl (0.6-1.3); iSTAT Hemoglobin 13.6 g/dl (12.0-16.0); iSTAT Ionized Calcium 1.32 mmol/l (1.12-1.32); iSTAT Potassium 4.5 mmol/L (3.3-5.0)
[2021-08-15 18:38] LABS: Partial Thromboplastin Ratio 0.8; Partial Thromboplastin Time 20.3 Seconds (21.0-31.0); Prothrombin Time 10.5 Seconds (9.0-12.0)
[2021-08-15 18:49] LABS: Base Excess VBG -2.5 mEq/L; Oxygen Saturation VBG 66.5 %; pH VBG 7.34 (7.36-7.41)
[2021-08-15 18:49] LABS: Troponin I < 0.03 ng/ml (0-0.04)
[2021-08-15] MEDS ORDERED: ASPIRIN CHEW 324 MG PO STA (18:54)
[2021-08-15 18:59] LABS: Alanine Aminotransferase 28 U/L (7-52); Albumin Level 3.5 gm/dl (3.4-5.0); Alkaline Phosphatase 109 U/L (34-104); Anion Gap 13 (3-11); Aspartate Aminotransferase 22 U/L (13-39); BUN Creatinine Ratio 18.1 (10-20); Bilirubin,Total 0.5 mg/dl (0.2-1.0); Blood Urea Nitrogen 37 mg/dl (6-23); Calcium 10.5 mg/dl (8.5-10.1); Carbon Dioxide 21 mmol/L (21-32); Chloride 106 mmol/L (98-107); Creatinine Clr Calc Pharmacy 32.7 ml/min; Est GFR (African American) 28.5 ml/min; Est GFR (Non-African American) 24.6 ml/min; Globulin 3.5 gm/dl (2.5-4.0); Glucose 108 mg/dl (70-99(Fasting)); Magnesium 1.5 mg/dl (1.7-2.4); Potassium 4.5 mmol/L (3.5-5.1); Sodium 140 mmol/L (136-145)
--- NOTE | 2021-08-15 19:03 | Emergency Department Note ---
History of Present Illness General Chief complaint: Stroke/CVA Symptoms Stated complaint: Stroke Alert History of Present Illness Provider complaint: Extremity weakness facial droop Onset (ago): day(s) 1 Location: upper extremity and left 66-year-old female from [facility] presents via EMS for slurred speech left-sided facial droop and left-sided weakness that began 1 hour ago. Patient does have history of MS. Home Medications Medication Instructions Recorded Confirmed Type albuterol sulfate 2.5 mg INHALATION Q6H PRN 06/25/21 08/15/21 History benazepril 40 mg tablet 40 mg PO DAILY 06/25/21 08/15/21 History fluticasone 100 mcg-salmeterol 50 1 ea INHALATION BID 06/25/21 08/15/21 History mcg/dose blistr powdr for inhalation (Wixela Inhub) levothyroxine 25 mcg tablet 25 mcg PO DAILYBB 06/25/21 08/15/21 History metformin 500 mg tablet 500 mg PO BID17 06/25/21 08/15/21 History omeprazole 20 mg capsule,delayed 20 mg PO DAILY 06/25/21 08/15/21 History release miconazole nitrate 2 % topical 1 applic EXT BID #43 g 08/03/21 08/15/21 Rx powder (Desenex) diclofenac sodium 1 % topical gel 4 g EXT QID #1 tube 08/07/21 08/15/21 Rx (Voltaren Arthritis Pain) fexofenadine 180 mg tablet 180 mg PO QAM #30 tab 08/07/21 08/15/21 Rx fluticasone propionate 50 2 spray NA DAILY #1 inhaler 08/07/21 08/15/21 Rx mcg/actuation nasal spray,suspension furosemide 20 mg tablet (Lasix) 20 mg PO QAM #30 tab 08/07/21 08/15/21 Rx guaifenesin 600 mg tablet, 1,200 mg PO Q12 10 Days #40 tab 08/07/21 08/15/21 Rx extended release 12 hr (Mucinex) insulin aspart U-100 100 unit/mL 1 sliding scale dose SC AC #1 btl 08/07/21 08/15/21 Rx subcutaneous solution (Novolog U-100 Insulin aspart) magnesium oxide 400 mg (241.3 mg 400 mg PO DAILY #30 tab 08/07/21 08/15/21 Rx magnesium) tablet nystatin 100,000 unit/mL oral 5 ml PO QID 10 Days #200 ml 08/07/21 08/15/21 Rx suspension potassium chloride 10 mEq 10 meq PO DAILY #30 tab 08/07/21 08/15/21 Rx tablet,extended release sennosides 8.6 mg tablet (Senokot) 17.2 mg PO QAM #60 tab 08/07/21 08/15/21 Rx sodium chloride 0.65 % nasal spray 2 spray NA Q1H PRN #1 btl 08/07/21 08/15/21 Rx aerosol (Saline Mist) acetaminophen 325 mg tablet 650 mg PO Q4H PRN 08/15/21 08/15/21 History (Tylenol) insulin glargine 100 unit/mL (3 15 unit SC QAM 08/15/21 08/15/21 History mL) subcutaneous pen (Lantus Solostar U-100 Insulin) nystatin 100,000 unit/gram topical 1 applic TOPICAL TID 08/15/21 08/15/21 History cream Allergies Allergy/AdvReac Type Severity Reaction Status Date / Time codeine AdvReac Mild NAUSEATED Verified 08/15/21 18:20 Past Med/Surg History Medical History Diabetes Influenza A Multiple sclerosis Pneumonia Sepsis UTI (urinary tract infection) Surgical History No pertinent past surgical history Family History Other Family history non-contributory Social History Smoking Status: Never smoker Hx Alcohol Use: No (unknown) Hx Substance Use: No (unknown) Preferred Language: Citizen Of [place] Communication Ability: Effective Subscription Clerk Required: No marital status: Current Living Situation: Spouse How many Children do You have: 2 Feels Safe at Home: Yes Assistive Devices: None Review of Systems A total of 10 systems reviewed and were otherwise negative Physical Exam Vital Signs Vital Signs - 24 hr 08/15/21 18:24 08/15/21 18:25 08/15/21 18:30 Temperature 36.7 C Temperature Source Oral Pulse Rate 109 H 100 H 110 H Pulse Rate from SpO2 Sensor 109 H Respiratory Rate 18 18 23 Respiratory Depth Normal Blood Pressure 124/55 L Blood Pressure Mean 78 Pulse Oximetry 97 96 Oxygen Delivery Method Room Air Sepsis Recent Fever Within 48 Hours No Sepsis New/Unexplained Change in Mental Status No Sepsis Action Taken by Nursing No Action Required 08/15/21 18:45 Temperature Temperature Source Pulse Rate 107 H Pulse Rate from SpO2 Sensor Respiratory Rate 21 Respiratory Depth Blood Pressure Blood Pressure Mean Pulse Oximetry Oxygen Delivery Method Sepsis Recent Fever Within 48 Hours Sepsis New/Unexplained Change in Mental Status Sepsis Action Taken by Nursing Physical Exam HENT: Exam performed. -Head: Normocephalic and atraumatic. -Right Ear: External ear normal. No mastoid tenderness. -Left Ear: External ear normal. No mastoid tenderness. -Mouth/Throat: The oropharynx is clear and moist. No trismus in the jaw. No dental abscesses or uvula swelling. No oropharyngeal exudate or tonsillar abscesses. EYES: Conjunctivae and EOM are normal. Pupils are equal, round, and reactive to light. Right eye exhibits no discharge. Left eye exhibits no discharge. No scleral icterus. NECK: Normal range of motion. Neck supple. No JVD present. No spinous process tenderness present. No carotid bruit present. No rigidity. No tracheal deviation and normal range of motion present. No Brudzinski's sign and no Kernig's sign noted. CV: Normal rate, regular rhythm, normal heart sounds and intact distal pulses. There is no peripheral edema. Palpable radial pulses bue. PULM/CHEST: Effort normal and breath sounds normal. No respiratory distress. No stridor. She has no wheezes. She has no rales. -Chest Wall: She exhibits no tenderness. ABD: The abdomen is soft. Bowel sounds are normal. She has no distension. No mass is present. There is no tenderness. There is no rebound, no guarding, no Ha's sign and no tenderness at McBurney's point. Rovsig negative NEURO: NIHSS: (6a:1, 6b:1, 7:2, 9:1, 10:1) PSYCH: She has a normal mood and affect. Behavior is normal. Judgment and thought content normal. Course Course 1754: Received call from EMS. Code stroke called. 180: The patient was evaluated in room B1. [facility] shows patient has creatinine of 2.1. EMR reviewed the patient's creatinine is usually within normal limits. CTAs will be held at this time as it is unclear if the patient is truly having a CVA or if she is having an MS flare and we do not want a worsen the patient's kidney function. 1814: EMR reviewed. Patient was admitted to the hospital in July 2020. Neuro exam from that date showed that she was alert and oriented x3 with no motor or sensory deficits. No weakness. Her speech was intact there is no facial droop and she had equal strength. July 26, 2021 the patient went to shock was thought to do with either her influenza infection or UTI. On July 26 neurology evaluate the patient and thought that she had an encephalitis with a from sepsis, at that time the patient was on BiPAP and a full neurological exam was not conducted. 1854: Cardiac monitoring: An order was placed for continuous cardiac monitoring. The monitor shows a rate of 100 with sinus rhythm. Family is at bedside and state that this patient does not have any dysarthria now. Patient was eval by [facility] Dr. Jose F Ryder who states that the patient's symptoms are improving and he thinks she might of had a TIA versus an MS flare. Recommends aspirin for the patient as well as an MRI/MRA of the brain in the morning. Labs do confirm DUNCAN. Magnesium level is low, magnesium replaced in the emergency department. Administered Medications Sodium Chloride (Nss 1000ml) 1,000 mls @ 80 mls/hr IV .[id number] SRIDHAR Stop: 09/14/21 18:59 Last Admin: 08/15/21 19:17 Dose: 80 mls/hr Documented by: [id number] Discontinued Medications Aspirin (Aspirin Chew 324 Mg) 324 mg PO NOW STA Stop: 08/15/21 18:55 Last Admin: 08/15/21 19:14 Dose: 324 mg Documented by: [id number] Critical Care Time Critical Care Time: Yes Total Critical Care Time: 37 I have personally spent greater than 37 minutes of critical care time in the direct management of this patient. This includes bedside care, interpretation of diagnostic studies, and testing, discussion with consultants, patient, and family members, and other required patient management activities. This 37 minutes is in excess of all separately billable procedures. Medical Decision Making Laboratory Data Result diagrams: 08/15/21 18:18 08/15/21 18:18 Lab Results 08/15/21 08/15/21 08/15/21 Range/Units 18:18 18:18 18:18 WBC 8.07 (4.8-10.8) K/uL RBC 4.13 L (4.2-5.4) M/uL Hgb 13.4 (12.0-16.0) g/dL POC Hgb (12.0-16.0) g/dl Hct 41.3 (37-47) % POC Hct (37-47) % MCV 100.0 (80-100) fL MCH 32.4 (25-34) pg MCHC 32.4 (32-36) g/dL RDW Std Deviation 62.7 H (36.4-46.3) fL RDW Coeff of Kaia 17.4 H (11.5-14.5) % Plt Count 240 (130-400) K/uL MPV 12.4 H (7.4-10.4) fL Immature Gran % (Auto) 0.2 % Neut % (Auto) 44.5 % Lymph % (Auto) 36.2 % [place] % (Auto) 12.8 % Eos % (Auto) 5.6 % Baso % (Auto) 0.7 % Neut # (Auto) 3.59 (1.4-6.5) K/uL Lymph # (Auto) 2.92 (1.2-3.4) K/uL [place] # (Auto) 1.03 H (0.11-0.59) K/uL Eos # (Auto) 0.45 (0-0.5) K/uL Baso # (Auto) 0.06 (0-0.2) K/uL Immature Gran # (Auto) 0.02 (0.00-0.02) K/uL PT 10.5 (9.0-12.0) Seconds INR 1.0 (0.9-1.1) APTT 20.3 L (21.0-31.0) Seconds PTT Ratio 0.8 VBG pH (7.36-7.41) VBG pCO2 (38-50) mmHg VBG pO2 mmHg VBG HCO3 mmol/L VBG O2 Saturation % VBG Base Excess mEq/L Barometric Pressure mm/Hg POC Sodium (135-144) mmol/L Sodium 140 (136-145) mmol/L POC Potassium (3.3-5.0) mmol/L Potassium 4.5 (3.5-5.1) mmol/L POC Chloride (101-112) mmol/L Chloride 106 (98-107) mmol/L Carbon Dioxide 21 (21-32) mmol/L POC Total CO2 (24-31) mmol/L Anion Gap 13 H (3-11) POC Anion Gap (16-25) mmol/L POC BUN (7-18) mg/dl BUN 37 H (6-23) mg/dl Creatinine 2.04 H (0.6-1.2) mg/dl POC Creatinine (0.6-1.3) mg/dl Est Cr Clr Drug Dosing 32.7 ml/min Est GFR ( Amer) 28.5 ml/min Est GFR (Non-Af Amer) 24.6 ml/min BUN/Creatinine Ratio 18.1 (10-20) Glucose 108 H (70-99(Fasting)) mg/dl POC Glucose (other) (70-99) mg/dl Calcium 10.5 H (8.5-10.1) mg/dl POC Ioniz Calcium Amaury (1.12-1.32) mmol/l Magnesium 1.5 L (1.7-2.4) mg/dl Total Bilirubin 0.5 (0.2-1.0) mg/dl AST 22 (13-39) U/L ALT 28 (7-52) U/L Alkaline Phosphatase 109 H (34-104) U/L Troponin I < 0.03 (0-0.04) ng/ml Total Protein 7.0 (6.0-8.3) gm/dl Albumin 3.5 (3.4-5.0) gm/dl Globulin 3.5 (2.5-4.0) gm/dl Albumin/Globulin Ratio 1.0 (0.9-2) 08/15/21 08/15/21 Range/Units 18:23 18:34 WBC (4.8-10.8) K/uL RBC (4.2-5.4) M/uL Hgb (12.0-16.0) g/dL POC Hgb 13.6 (12.0-16.0) g/dl Hct (37-47) % POC Hct 40 (37-47) % MCV (80-100) fL MCH (25-34) pg MCHC (32-36) g/dL RDW Std Deviation (36.4-46.3) fL RDW Coeff of Kaia (11.5-14.5) % Plt Count (130-400) K/uL MPV (7.4-10.4) fL Immature Gran % (Auto) % Neut % (Auto) % Lymph % (Auto) % [place] % (Auto) % Eos % (Auto) % Baso % (Auto) % Neut # (Auto) (1.4-6.5) K/uL Lymph # (Auto) (1.2-3.4) K/uL [place] # (Auto) (0.11-0.59) K/uL Eos # (Auto) (0-0.5) K/uL Baso # (Auto) (0-0.2) K/uL Immature Gran # (Auto) (0.00-0.02) K/uL PT (9.0-12.0) Seconds INR (0.9-1.1) APTT (21.0-31.0) Seconds PTT Ratio VBG pH 7.34 L (7.36-7.41) VBG pCO2 44 (38-50) mmHg VBG pO2 39 mmHg VBG HCO3 23 mmol/L VBG O2 Saturation 66.5 % VBG Base Excess -2.5 mEq/L Barometric Pressure 737.5 mm/Hg POC Sodium 141 (135-144) mmol/L Sodium (136-145) mmol/L POC Potassium 4.5 (3.3-5.0) mmol/L Potassium (3.5-5.1) mmol/L POC Chloride 109 (101-112) mmol/L Chloride (98-107) mmol/L Carbon Dioxide (21-32) mmol/L POC Total CO2 21 L (24-31) mmol/L Anion Gap (3-11) POC Anion Gap 16.0 (16-25) mmol/L POC BUN 35 H (7-18) mg/dl BUN (6-23) mg/dl Creatinine (0.6-1.2) mg/dl POC Creatinine 2.1 H (0.6-1.3) mg/dl Est Cr Clr Drug Dosing ml/min Est GFR ( Amer) ml/min Est GFR (Non-Af Amer) ml/min BUN/Creatinine Ratio (10-20) Glucose (70-99(Fasting)) mg/dl POC Glucose (other) 110 H (70-99) mg/dl Calcium (8.5-10.1) mg/dl POC Ioniz Calcium Amaury 1.32 (1.12-1.32) mmol/l Magnesium (1.7-2.4) mg/dl Total Bilirubin (0.2-1.0) mg/dl AST (13-39) U/L ALT (7-52) U/L Alkaline Phosphatase (34-104) U/L Troponin I (0-0.04) ng/ml Total Protein (6.0-8.3) gm/dl Albumin (3.4-5.0) gm/dl Globulin (2.5-4.0) gm/dl Albumin/Globulin Ratio (0.9-2) Imaging Data Radiologist's Impression: Head CT 08/15/21 18:01 CT head/brain wo con CLINICAL HISTORY: 66 years-old Female with Stroke Like Symptoms. Acute stroke like symptoms TECHNIQUE: Multiple axial CT images of the head were obtained without contrast. A dose lowering technique was utilized adhering to the principles of ALARA. COMPARISON: Head CT 07/25/2021 FINDINGS: No acute intracranial hemorrhage, midline shift, intracranial mass, hydrocephalus, territorial ischemia or abnormal extra-axial collection. Motion degraded exam. The study was then repeated. Involutional changes with white matter hypodensities suggestive of chronic microvascular ischemic disease. Cavum septum pellucidum and vergae. The calvarium is intact. Mastoid air cells are clear. Severe chronic mucoperiosteal thickening of the paranasal sinuses. Unremarkable soft tissues and orbits. IMPRESSION: Motion degraded exam. No acute intracranial abnormality identified. ACT 112: Negative or not required by law. The above report was generated using voice recognition software. It may contain grammatical, syntax or spelling errors. Electronically signed by: Pedro Lucas M.D. 08/15/2021 6:20 PM [facility] Narrative 1755: Received call from EMS. Code stroke called. 1801: The patient was evaluated in room B1. [facility] shows patient has creatinine of 2.1. EMR reviewed the patient's creatinine is usually within normal limits. CTAs will be held at this time as it is unclear if the patient is truly having a CVA or if she is having an MS flare and we do not want a worsen the patient's kidney function. 1814: EMR reviewed. Patient was admitted to the hospital in July 2020. Neuro exam from that date showed that she was alert and oriented x3 with no motor or sensory deficits. No weakness. Her speech was intact there is no facial droop and she had equal strength. July 26, 2021 the patient went to shock was thought to do with either her influenza infection or UTI. On July 26 neurology evaluate the patient and thought that she had an encephalitis with a from sepsis, at that time the patient was on BiPAP and a full neurological exam was not conducted. 1854: Cardiac monitoring: An order was placed for continuous cardiac monitoring. The monitor shows a rate of 100 with sinus rhythm. Family is at bedside and state that this patient does not have any dysarthria now. Patient was eval by [facility] Dr. Jose F Ryder who states that the patient's symptoms are improving and he thinks she might of had a TIA versus an MS flare. Recommends aspirin for the patient as well as an MRI/MRA of the brain in the morning. Labs do confirm DUNCAN. Magnesium level is low, magnesium replaced in the emergency department. Impression & Plan Brain TIA, DUNCAN (acute kidney injury), Hypomagnesemia Discharge Plan Visit Data Chief Complaint: Stroke/CVA Symptoms Stated Complaint: Stroke Alert ED Provider: Harpal Valencia Discharge Problem: Brain TIA, DUNCAN (acute kidney injury), Hypomagnesemia Patient Disposition: Admitted As Inpatient Forms Stand Alone Forms: My [facility] Prescriptions Prescriptions: No Action metformin 500 mg tablet 500 mg PO [id number] RF: 0 levothyroxine 25 mcg tablet 25 mcg PO DAILYBB RF: 0 omeprazole 20 mg capsule,delayed release(DR/EC) 20 mg PO DAILY RF: 0 fluticasone propion-salmeterol [Wixela Inhub] 100-50 mcg/dose blister with device 1 ea INHALATION BID RF: 0 benazepril 40 mg tablet 40 mg PO DAILY RF: 0 albuterol sulfate 2.5 mg /3 mL (0.083 %) solution for nebulization 2.5 mg inhalation Q6H PRN (Reason: Shortness Of Breath Or Wheezing) RF: 0 Desenex 2 % Powder 1 applic EXT BID Qty: 43 RF: 0 sennosides [Senokot] 8.6 mg Tablet 17.2 mg PO QAM Qty: 60 RF: 0 nystatin 100,000 unit/mL Suspension 5 ml PO QID 10 Days Qty: 200 RF: 0 fexofenadine 180 mg Tablet 180 mg PO QAM Qty: 30 RF: 1 insulin aspart U-100 [Novolog U-100 Insulin aspart] 100 unit/mL Solution 1 sliding scale dose SC AC Qty: 1 RF: 0 fluticasone propionate 50 mcg/actuation [place],Suspension 2 spray NA DAILY Qty: 1 RF: 2 Saline Mist 0.65 % Aerosol,[place] 2 spray NA Q1H PRN (Reason: nasal congestion) Qty: 1 RF: 0 diclofenac sodium [Voltaren Arthritis Pain] 1 % Gel 4 g EXT QID Qty: 1 RF: 2 guaifenesin [Mucinex] 600 mg Tablet Extended Release 12hr 1,200 mg PO Q12 10 Days Qty: 40 RF: 0 furosemide [Lasix] 20 mg tablet 20 mg PO QAM Qty: 30 RF: 2 potassium chloride 10 mEq tablet extended release 10 meq PO DAILY Qty: 30 RF: 2 magnesium oxide 400 mg (241.3 mg magnesium) tablet 400 mg PO DAILY Qty: 30 RF: 2 acetaminophen [Tylenol] 325 mg Tablet 650 mg PO Q4H PRN (Reason: PAIN/TEMP=>100) RF: 0 nystatin 100,000 unit/gram Cream 1 applic TOPICAL TID RF: 0 Lantus Solostar U-100 Insulin 100 unit/mL (3 mL) insulin pen 15 unit SC QAM RF: 0 Referrals Referrals: Vernon Sanz MD [Primary Care Provider] -
[2021-08-15] MEDS: SODIUM CHLORIDE 0.9% 1000ML 1,000 ML IV SCH (19:17)
[2021-08-15] MEDS ORDERED: MAGNESIUM SULFATE / D5W 1 GM/100 ML BAG IV STA (19:36)
[2021-08-15 21:12] LABS: Appearance Urine Clear (Clear); Bacteria Urine Automated Negative (Negative); Bilirubin Urine Negative (Negative); Blood Urine Negative (Negative); Color Urine Yellow; Glucose Urine UA Negative (Negative); Ketones Urine 1+ (Negative); Leukocyte Esterase Urine Trace (Negative); Nitrite Urine Negative (Negative); Protein Urine Negative (Negative); RBC Urine Automated 0-4 /hpf (0-4); Specific Gravity Urine 1.019 (1.000-1.030); Urobilinogen Urine Negative (Negative)
--- NOTE | 2021-08-15 21:29 | History & Physical Report ---
Date of Service August 15, 2021 Assessment & Plan (1) Multiple sclerosis: Plan: 66 yo F multiple sclerosis, asthma, DM2, HTN, hypothyroidism admitted for acute left sided weakness concern for TIA vs. MS flare. TIA vs. MS flare: Presented with complaints of unilateral weakness and facial droop/dysarthria, resolved by time of ER provider evaluation. CTA Head/Neck not performed due to DUNCAN. CT Head without evidence of CVA (motion degraded exam). Patient was evaluated by Dr. Jose F Ryder with [facility]. Suspicious of MS flare vs. TIA. Recommended MRI/MRA of the brain in the morning. On my interview patient without any focal neurologic deficits, suggesting TIA with greater likelihood than MS flare. Consider Solumedrol 1g IV daily if patient redevelops neurologic symptoms. Will defer for now. Will also perform MRI MS protocol in AM. Lipid panel, A1c, Echo ordered. Consult Neuro if patient redevelops neuro symptoms or if AM imaging reveals CVA. DUNCAN: Presents with creatinine 2.04; baseline 0.7 earlier this month. Continue NSS at 80cc/hr with repeat BMP in AM. Hold Lasix. Pitting edema: Per outside record, patient was on Bumex at one time, and is now on Lasix PO daily for pitting edema. Edema likely dependent edema in relatively non-ambulatory patient (only walks to commode and back to bed with assistance). Satish hose/leg wraps as able; avoid Lasix given kidney injury while on it. Low sodium diet. HypoMg: Admission Mag of 1.5; received MgSulfate 1g IV in ER. Continue MagOx 400mg PO daily. Hold PPI. DM2: Hold home metformin. Initiate basal/bolus insulin. DM2 diet. A1c pending. Hypercalcemia: BMP with corrected Ca 10.9; ICal 1.32 (normal). HTN: BP normotensive. Holding ROGELIO in the setting of DUNCAN. Asthma: Continue home inhalers. Code Status: FULL CODE FEN: DM2, heart healthy, low sodium diet DVT ppx: Lovenox BID Dispo: Med/Surg with Telemetry (2) Diabetes: (3) Hypomagnesemia: (4) Brain TIA: (5) DUNCAN (acute kidney injury): (6) Left-sided weakness: (7) Hypertension: (8) Hypothyroidism: (9) Asthma: History of Present Illness Chief Complaint: left sided weakness Primary Care Provider: Vernon Sanz MD 66 yo F multiple sclerosis, asthma, DM2, HTN, hypothyroidism presented to the ER as stroke alert for left sided facial droop and dysarthria. Per patient earlier today had acute episode of weakness of the left side of her body with some difficulty speaking. By time of ER provider review patient no longer had dysarthria or weakness. She was evaluated by Telestroke Neurologist and CT Head performed which did not show any acute pathology (though was motion degraded exam). CTA Head/Neck not performed due to DUNCAN with creatinine 2.1. Recommendation made for MRI/MRA in AM with aspirin at time of telestroke evaluation; suspicion of TIA given resolution of symptoms by time of evaluation. Patient received aspirin and hospitalist service was consulted for admission. At time of my interview patient denies SOB, chest pain, headache, nausea, asymmetric upper or lower extremity weakness. She reports that sometimes she feels like her legs get overwhelmingly weak during an MS flare, but she has not had one in "a long time". In general, she walks only from her bed to her bedside commode and back with some assistance out of bed. Allergies Allergy/AdvReac Type Severity Reaction Status Date / Time codeine AdvReac Mild NAUSEATED Verified 08/15/21 18:20 Home Medications Medication Instructions Recorded Confirmed Type albuterol sulfate 2.5 mg INHALATION Q6H PRN 06/25/21 08/15/21 History benazepril 40 mg tablet 40 mg PO DAILY 06/25/21 08/15/21 History fluticasone 100 mcg-salmeterol 50 1 ea INHALATION BID 06/25/21 08/15/21 History mcg/dose blistr powdr for inhalation (Wixela Inhub) levothyroxine 25 mcg tablet 25 mcg PO DAILYBB 06/25/21 08/15/21 History metformin 500 mg tablet 500 mg PO BID17 06/25/21 08/15/21 History omeprazole 20 mg capsule,delayed 20 mg PO DAILY 06/25/21 08/15/21 History release miconazole nitrate 2 % topical 1 applic EXT BID #43 g 08/03/21 08/15/21 Rx powder (Desenex) diclofenac sodium 1 % topical gel 4 g EXT QID #1 tube 08/07/21 08/15/21 Rx (Voltaren Arthritis Pain) fexofenadine 180 mg tablet 180 mg PO QAM #30 tab 08/07/21 08/15/21 Rx fluticasone propionate 50 2 spray NA DAILY #1 inhaler 08/07/21 08/15/21 Rx mcg/actuation nasal spray,suspension furosemide 20 mg tablet (Lasix) 20 mg PO QAM #30 tab 08/07/21 08/15/21 Rx guaifenesin 600 mg tablet, 1,200 mg PO Q12 10 Days #40 tab 08/07/21 08/15/21 Rx extended release 12 hr (Mucinex) insulin aspart U-100 100 unit/mL 1 sliding scale dose SC AC #1 btl 08/07/21 08/15/21 Rx subcutaneous solution (Novolog U-100 Insulin aspart) magnesium oxide 400 mg (241.3 mg 400 mg PO DAILY #30 tab 08/07/21 08/15/21 Rx magnesium) tablet nystatin 100,000 unit/mL oral 5 ml PO QID 10 Days #200 ml 08/07/21 08/15/21 Rx suspension potassium chloride 10 mEq 10 meq PO DAILY #30 tab 08/07/21 08/15/21 Rx tablet,extended release sennosides 8.6 mg tablet (Senokot) 17.2 mg PO QAM #60 tab 08/07/21 08/15/21 Rx sodium chloride 0.65 % nasal spray 2 spray NA Q1H PRN #1 btl 08/07/21 08/15/21 Rx aerosol (Saline Mist) acetaminophen 325 mg tablet 650 mg PO Q4H PRN 08/15/21 08/15/21 History (Tylenol) insulin glargine 100 unit/mL (3 15 unit SC QAM 08/15/21 08/15/21 History mL) subcutaneous pen (Lantus Solostar U-100 Insulin) nystatin 100,000 unit/gram topical 1 applic TOPICAL TID 08/15/21 08/15/21 History cream aspirin 81 mg tablet,delayed 81 mg PO QAM #30 tab 08/16/21 Rx release Past Med/Surg History Medical History Asthma Diabetes Hypertension Hypothyroidism Influenza A Multiple sclerosis Pneumonia Sepsis UTI (urinary tract infection) Surgical History No pertinent past surgical history Family History Other Family history non-contributory Social History Smoking Status: Never smoker Hx Alcohol Use: No (unknown) Hx Substance Use: No (unknown) Preferred Language: Malawian Communication Ability: Effective Dentist/Owner Required: No Beliefs That Will Affect Care: None marital status: Current Living Situation: Spouse How many Children do You have: 2 Feels Safe at Home: Yes Safety Concerns: Feels Safe At This Time Assistive Devices: Walker and Wheelchair Review of Systems Review of Systems: All systems reviewed & are unremarkable except as noted in HPI & below Constitutional: no fever, no chills and no malaise Respiratory: no cough and no dyspnea Cardiovascular: no chest pain, no palpitations and no edema Gastrointestinal: no abdominal pain, no constipation and no diarrhea/loose stools Genitourinary: no dysuria and no hematuria Physical Exam Constitutional: well developed and + morbidly obese; no acute distress Eyes: PERRL, conjunctivae normal, anicteric sclerae ENMT: external ear and nose normal, oropharynx normal Neck: normal visual inspection, + short neck and + thick neck Respiratory: normal respiratory effort, lungs clear to auscultation Cardiovascular: Rate/Rhythm: regular rate and regular rhythm Heart Sounds: no murmur Extremities: + edema (2+ to bilateral feet) Gastrointestinal (Abdomen): normal bowel sounds, soft, nontender, no hepatosplenomegaly protuberant abdomen Skin: no rashes, warm and dry Neurologic: The patient is awake, alert, and attentive. Speech is normal without any obvious aphasia or dysarthria. She can name objects, repeat phrases, and has normal spontaneous speech. Mentation and thought processes are intact, with orientation to person, place and time, and normal fund of knowledge. Attention and concentration are normal. Mood and affect are normal and appropriate. General appearance and grooming are normal. Short and long- term memory are intact to conversation. No sensory deficits of the face in the ophthalmic, maxillary, or mandibular distributions. Facial strength normal bilaterally without facial droop, symmetric smile and eyebrow raise. Hearing grossly normal. Palate moves without asymmetry, uvula midline. Normal shoulder shrug strength bilaterally. Tongue is midline with good strength bilaterally. Motor Strength: 5/5 in bilateral arms (deltoids, biceps, triceps, wrist flexors and extensors, grain trimmer, intrinsic hand muscles). 4/5 in bilateral legs (hip flexors, quads, hamstrings, foot flexors and extensors). Good muscle tone without rigidity or spasticity. Downward Babinski bilaterally. Sensory Exam: intact to touch and pin with bilateral upper limbs, lower limbs, and face. No pronator drift. No tremors. Psychiatric: A+Ox3, euthymic affect Results & Data Results & Data ([facility]) Vital Signs (Past 12 Hours) Vital Signs Temp Pulse Resp BP Pulse Ox 08/15/21 20:46 107 H 16 113/72 96 08/15/21 20:30 105 H 16 83/69 L 08/15/21 20:01 104 H 16 106/37 L 99 08/15/21 20:00 115 H 22 93 08/15/21 19:30 108 H 16 103/80 08/15/21 19:00 112 H 16 122/65 08/15/21 18:55 109 H 15 109/67 08/15/21 18:45 107 H 21 08/15/21 18:30 110 H 23 08/15/21 18:25 36.7 C 100 H 18 124/55 L 96 08/15/21 18:24 109 H 18 97 Code Status & VTE Plan VTE Prophylaxis Plan VTE Prophylaxis will be ordered: Yes Supervising Physician Co-Signing Physician Notes Attending addendum: I have physically seen this patient, have supervised the medical residents activities, and agree with the H&P unless as otherwise noted. Assessment and Plan: Neurologic symptoms- Self-limited weakness/facial droop/dysarthria Differential includes MS flare versus TIA versus CVA versus other- CT head negative [facility] recommends imaging in the morning with MRI and MRA of brain Hold on Solu-Medrol IV treatment of MS unless symptoms are returning and more consistent with an MS flare Acute kidney injury- Creatinine 2.04 upon admission, with base 0.75 NSS at 80 mils per hour, repeat BMP in a.m. Hold Lasix remaining orders and notations as noted Compression for lower extremity edema for now Remaining orders and notations as noted Resident Activity Tracking Resident Involvement: Resident Care Provided Care Provided: Adult [facility] Medicine
[2021-08-15] MEDS ORDERED: GLUCOSE 40% GEL 15 GM TUBE PO PRN (22:16)
[2021-08-15] MEDS ORDERED: GLUCAGON FOR INJ 1 MG VIAL SQ PRN (22:16)
[2021-08-15] MEDS ORDERED: DEXTROSE 50% 50 ML SYRINGE IV PRN (22:16)
[2021-08-15] MEDS ORDERED: CARBOHYDRATES FOR HYPOGLYCEMIA PO PRN (22:16)
[2021-08-15] MEDS ORDERED: GLUCOSE 10 TABS/TUBE PO PRN (22:16)
[2021-08-15] MEDS ORDERED: ALBUTEROL 0.083% NEBU SOLN 3 ML VIAL INH PRN (22:16)
[2021-08-15] MEDS ORDERED: POLYETHYLENE (MIRALAX) 17 GM PACK PO PRN (22:16)
[2021-08-15] MEDS ORDERED: ACETAMINOPHEN 325 MG TAB PO PRN (22:16)
[2021-08-15] MEDS ORDERED: SODIUM CHLORIDE 0.65% NA SOLN 45 ML (OCEAN) PRN (22:16)
[2021-08-16] MEDS: ENOXAPARIN INJ 40 MG/0.4 ML SYR SQ SCH ×3 (02:20→21:04)
[2021-08-16] MEDS: LEVOTHYROXINE SODIUM 25 MCG TABLET PO SCH (06:33)
[2021-08-16 06:59] LABS: Estimated Average Glucose 134 mg/dl; Hemoglobin A1C 6.3 % (4.5-5.6)
[2021-08-16 07:07] LABS: BUN Creatinine Ratio 24.5 (10-20); Calcium 9.5 mg/dl (8.5-10.1); Chol HDL Ratio 2.5 (0-5); Creatinine Clr Calc Pharmacy 47.7 ml/min; Est GFR (African American) 45.3 ml/min; Est GFR (Non-African American) 39.1 ml/min; Potassium 4.5 mmol/L (3.5-5.1)
--- NOTE | 2021-08-16 07:24 | Magnetic Resonance Report ---
MR ANGIOGRAM OF THE BRAIN CLINICAL HISTORY: Transient ischemic attack. COMPARISON STUDY: MRI of the brain performed concurrently on 08/16/2021. TECHNIQUE: 3-D [id number] MR angiography of the intracranial circulation is performed. 3-D tumble views are created and assessed. IV contrast was not administered for this examination. The examinati on is degraded by motion artifact. FINDINGS: There is origin of the right posterior cerebral artery. The internal carotid arteries are widely patent bilaterally, as are the anterior and middle cerebral arteries. The vertebrobasilar system and posterior cerebral arteries are widely patent. The left vertebral artery is dominant an the right vertebral artery is diminutive. There is no evidence of aneurysm, high-grade stenosis, or f ocal vessel cutoff seen throughout the intracranial circulation. IMPRESSION: Grossly unremarkable MR angiogram of the brain noting a severely motion compromised exami nation. ACT 112: Negative or not required by law. Electronically signed by: Cisco Atkins M.D. 08/16/2021 7:23 AM
--- NOTE | 2021-08-16 08:19 | Magnetic Resonance Report ---
MR brain MS wo con HISTORY: 66 years-old Female ? MS flare acute headache with strokelike symptoms. History of multiple sclerosis COMPARISON: Head CT 08/15/2021, brain MRI 07/25/2021 TECHNIQUE: Multiplanar multisequence MRI the brain was obtained without the use of IV contrast. FINDINGS: Transplant Immunologist localizer images demonstrate no gross extracranial abnormality. The study is motion degraded. N o restricted diffusion to suggest acute or subacute infarct. The visualized midline structures appear unremarkable. Partially empty sella. Degenerative changes of the imaged cervical spine. There is no acute intracranial hemorrhage, midline shift, abnormal extra axial collection, hydrocepha timi or intracranial mass identified. Mild involutional changes. Senescent calcifications of the basal ganglia. Numerous T2/FLAIR hyperintense foci are redemonstrated throughout the white matter, probabl y within the periventricular distribution which is unchanged. There may also be a few callosal lesion s which are suboptimally evaluated secondary to the aforementioned motion artifact. No definite infra tentorial foci are identified. The brainstem and imaged cervical spine appears unremarkable. The cerebral venous sinuses and visualized arterial flow voids appear unremarkable. The orbits and so ft tissues are unremarkable. Moderate to severe mucosal thickening of the paranasal sinuses with comp lete opacification of the left frontal sinus and near complete opacification of the ethmoid air cells . Mastoid air cells are clear. IMPRESSION: 1. Motion degraded exam. No acute intracranial abnormality identified. 2. Unchanged T2/FLAIR hyperintense foci throughout the white matter suggestive of chronic microvascul ar ischemic disease versus demyelinating process. 3. Paranasal sinus disease. ACT 112: Negative or not required by law. The above report was generated using voice recognition software. It may contain grammatical, syntax o r spelling errors. Electronically signed by: Pedro Lucas M.D. 08/16/2021 8:18 AM
--- NOTE | 2021-08-16 08:41 | Magnetic Resonance Report ---
NECK MRA HISTORY: Headache. Evaluate for possible TIA. TECHNIQUE: [id number] and gadolinium-enhanced MRA of the neck was performed both before and after the intravenous administration of contrast. All measurements were calculated based on NASCET criteri a. COMPARISON STUDY: None. FINDINGS: This is a limited examination due to patient motion artifact. If there is clinical concern for pathol ogy within the neck, CTA would be necessary for further evaluation. The aortic arch appears grossly normal. Is no definite evidence for stenosis or occlusion of the bila teral common carotid arteries or internal carotid arteries. Again, there is limited evaluation due to motion artifact. IMPRESSION: Limited examination due to motion artifact with no definite stenosis or occlusion seen. However, CTA of the neck would be the study of choice for further evaluation. ACT 112: Negative or not required by law. Electronically signed by: Mode Joshi M.D. 08/16/2021 8:40 AM
[2021-08-16] MEDS: INSULIN ASPART PER UNIT SC SCH ×4 (09:02→21:03)
[2021-08-16] MEDS: MAGNESIUM OXIDE 400 MG TAB PO SCH (10:49)
[2021-08-16] MEDS: FEXOFENADINE HCL 180 MG TAB PO SCH (10:49)
[2021-08-16] MEDS: FLUTICASONE PROPIONATE NA SPR 16 GM BTL SCH (10:50)
[2021-08-16] MEDS: FLUTICASONE/VILANTEROL 100/25MCG 14 PUFFS/INHALER INH SCH (10:50)
[2021-08-16] MEDS: guaiFENesin 600 MG TABCR PO SCH ×2 (10:51→21:04)
[2021-08-16] MEDS: INSULIN GLARGINE SOLOSTAR 100 UNITS/ML 3 ML PEN SC SCH ×2 (10:52→21:03)
[2021-08-16] MEDS: NYSTATIN SUSP 500,000 U/5 ML UDC PO SCH ×4 (10:53→21:05)
[2021-08-16] MEDS: SENNA 8.6 MG TAB PO SCH (10:53)
[2021-08-16] MEDS: DICLOFENAC SOD 1% GEL 100 GM TUBE EXT SCH ×4 (12:27→21:04)
[2021-08-16] MEDS: MICONAZOLE NITRATE POWDER 43 GM EXT SCH ×2 (12:27→21:06)
[2021-08-16] MEDS: SODIUM CHLORIDE 0.9% 1000ML 1,000 ML IV SCH (12:29)
--- NOTE | 2021-08-16 14:23 | XCELERA ---
[id number]
[2021-08-16] MEDS ORDERED: CLOPIDOGREL BISULFATE 75 MG TAB PO SCH (15:45)
[2021-08-16] MEDS: ASPIRIN 81 MG ECTAB PO SCH (16:55)
--- NOTE | 2021-08-16 17:35 | Hospitalist Progress Note ---
Date of Service August 16, 2021 Assessment & Plan (1) Multiple sclerosis: Plan: 66yo female with MS, DM2, asthma, HTN, and hypothyroidism presents with TIA. TIA - Presented with complaints of unilateral weakness and facial droop/dysarthria, resolved by time of ER provider evaluation - CT head without acute process, MRI brain without evidence of stroke, MRA head/neck unremarkable - Patient was evaluated by Dr. Jose F Ryder with [facility] [place] Tel[facility] - Suspicious of MS flare vs. TIA; however, MS flare unlikely given short duration of symptoms and improvement without steroids - Lipid panel wnl, A1c: 6.3% - Echo without sign of PFO/ASD/VSD - Speech eval ordered - Consult neurology if patient redevelops neuro symptoms - Started ASA 81mg daily; continue upon discharge - PT/OT ordered DUNCAN - Presents with creatinine 2.04 (baseline 0.7); has since improved to 1.39 - Continue NSS at 80cc/hr with repeat BMP in AM - Lasix held Pitting edema - Per outside record, patient was on Bumex at one time, and is now on Lasix PO daily for pitting edema - Edema likely dependent edema in relatively non-ambulatory patient (only walks to commode and back to bed with assistance) - Satish hose/leg wraps as able; avoid Lasix given kidney injury while on it - Low sodium diet Hypomagnesemia - Admission Mag of 1.5; received MgSulfate 1g IV in ER - Continue MagOx 400mg PO daily - Hold PPI DM2 - HbA1c 6.3% (08/15/2021) - Patient's home regimen held on admission - Continue BSG checks, sliding-scale insulin, hypoglycemic protocol HTN - BP normotensive - Holding ROGELIO in the setting of DUNCAN Asthma - Continue home inhalers Multiple sclerosis - Patient reports she has not had a flare in about a decade - Patient does not have a neurologist; recommended establishing with [facility]; appointment request submitted Dispo - Patient presented to [facility] from [facility] where she was recovering from her recent hospitalization for septic shock - Awaiting PT recommendations regarding potential rehab, though patient reports her strength is at baseline; consider DC home instead of returning to SNF FEN: heart healthy, low sodium, xahd-of-rtlt diet Code status: full code DVT ppx: lovenox PT/OT: ordered Case management: following Dispo: med/surg telemetry (2) Diabetes: (3) Hypomagnesemia: (4) Brain TIA: (5) DUNCAN (acute kidney injury): (6) Left-sided weakness: (7) Hypertension: (8) Hypothyroidism: (9) Asthma: Admission and Anticipated Discharge Date Admission Date: August 15, 2021 Supervising Physician Co-Signing Physician Notes I personally examined the patient and verified all ray points of history and exam, discussed case, and agree with decision making with Dr Mohamud feeling better vitals noted nad heent nc at mmm breathing unlabored no acccessorymuscles good effort skin no rashes no pallor or icterus neuro no focal deficits TIA - probably small vessel disease. add asa. vascular risks under control weakness - she feels she's at her baseline. PT/OT eval and treat. ?return to SNF vs home Subjective Patient seen and evaluated at bedside this morning. No acute events overnight. Patient feels well today and has no complaints. Patient reports her speech and strength have returned to baseline. No new symptoms or concerns at this time. Patient denies CP, SOB, abdominal pain, nausea, vomiting, lightheadedness, dizziness, and diarrhea. Review of Systems Review of Systems: See HPI Physical Exam Physical Exam: Constitutional: well-appearing, NAD, laying in bed HEENT: NCAT, poor dentition noted CV: regular rhythm, no murmur appreciated, extremities well-perfused Resp: CTABL, breathing nonlabored MSK: no gross deformities appreciated Skin: warm, dry, no rash appreciated Neuro: alert, oriented, no facial droop appreciated, speech clear, CN2-12 grossly intact, no focal deficit appreciated Psych: cooperative, pleasant, appropriate rate/volume/quantity of speech Results & Data Results & Data ([facility]) Vital Signs (Past 12 Hours) Vital Signs Temp Pulse Pulse Pulse Resp BP Pulse Ox 08/16/21 16:00 36.4 C L 91 H 18 98/65 L 97 08/16/21 15:20 92 H 08/16/21 12:00 36.8 C 93 H 70 18 102/68 95 08/16/21 11:28 96 H 22 99/60 L 96 Resident Activity Tracking Resident Involvement: Resident Care Provided Care Provided: [facility] Medicine
--- NOTE | 2021-08-16 19:20 | Billing Data ---
Date of Service August 16, 2021 Coding Level of Care Code 21591 Subseq Hosp Care Lvl 2
--- NOTE | 2021-08-16 22:15 | Billing Data ---
Date of Service August 16, 2021 Coding Level of Care Code 86910 Initial Inpt Care Lvl 3
--- NOTE | 2021-08-16 22:22 | Electrocardiogram Report ---
Test Reason : Blood Pressure : / mmHG Vent. Rate : 111 BPM Atrial Rate : 111 BPM P-R Int : 176 ms QRS Dur : 088 ms QT Int : 328 ms P-R-T Axes : 041 -15 -09 degrees QTc Int : 446 ms Sinus tachycardia Anterior infarct Abnormal ECG When compared with ECG of 24-JUL-2021 21:32, Vent. rate has increased BY 43 BPM Anterior infarct is now Present Confirmed by Jeff Read ([id number]) on 08/16/2021 10:22:13 PM Referred By: REFERRED SELF Confirmed By:Jeff Read
[2021-08-17] MEDS: SODIUM CHLORIDE 0.9% 1000ML 1,000 ML IV SCH ×2 (00:36→11:46)
[2021-08-17] MEDS: LEVOTHYROXINE SODIUM 25 MCG TABLET PO SCH (06:18)
[2021-08-17 06:44] LABS: Basophils # (auto) 0.03 K/uL (0-0.2); Basophils % (auto) 0.5 %; Eosinophils % (auto) 7.2 %; Hematocrit (blood only) 37.2 % (37-47); Immature Granulocytes # (auto) 0.02 K/uL (0.00-0.02); Immature Granulocytes % (auto) 0.4 %; Lymphocytes # (auto) 2.54 K/uL (1.2-3.4); Lymphocytes % (auto) 45.4 %; Mean Corpuscular Hemoglobin 32.3 pg (25-34); Mean Corpuscular Hgb Conc 32.3 g/dL (32-36); Mean Corpuscular Volume 100.3 fL (80-100); Monocytes # (auto) 0.73 K/uL (0.11-0.59); Monocytes % (auto) 13.1 %; Neutrophils # (auto) 1.87 K/uL (1.4-6.5); Neutrophils % (auto) 33.4 %; Platelet Count 193 K/uL (130-400); RDW Coefficient of Variation 17.1 % (11.5-14.5); RDW Standard Deviation 63.2 fL (36.4-46.3); Red Blood Count 3.71 M/uL (4.2-5.4); White Blood Count 5.59 K/uL (4.8-10.8)
[2021-08-17 07:11] LABS: BUN Creatinine Ratio 24.2 (10-20); Calcium 8.8 mg/dl (8.5-10.1); Creatinine Clr Calc Pharmacy 70.5 ml/min; Est GFR (African American) 71.8 ml/min; Potassium 4.3 mmol/L (3.5-5.1)
[2021-08-17] MEDS: INSULIN ASPART PER UNIT SC SCH ×2 (08:12→12:17)
[2021-08-17] MEDS: INSULIN GLARGINE SOLOSTAR 100 UNITS/ML 3 ML PEN SC SCH (08:17)
[2021-08-17] MEDS: ASPIRIN 81 MG ECTAB PO SCH (08:18)
[2021-08-17] MEDS: FLUTICASONE/VILANTEROL 100/25MCG 14 PUFFS/INHALER INH SCH (08:18)
[2021-08-17] MEDS: FLUTICASONE PROPIONATE NA SPR 16 GM BTL SCH (08:18)
[2021-08-17] MEDS: FEXOFENADINE HCL 180 MG TAB PO SCH (08:19)
[2021-08-17] MEDS: SENNA 8.6 MG TAB PO SCH (08:19)
[2021-08-17] MEDS: MAGNESIUM OXIDE 400 MG TAB PO SCH (08:19)
[2021-08-17] MEDS: NYSTATIN SUSP 500,000 U/5 ML UDC PO SCH ×2 (08:19→12:20)
[2021-08-17] MEDS: DICLOFENAC SOD 1% GEL 100 GM TUBE EXT SCH ×2 (08:19→12:20)
[2021-08-17] MEDS: guaiFENesin 600 MG TABCR PO SCH (08:19)
[2021-08-17] MEDS: MICONAZOLE NITRATE POWDER 43 GM EXT SCH (08:20)
--- NOTE | 2021-08-17 10:26 | Discharge Summary ---
Date of Service August 17, 2021 Admission HPI Per Admitting Provider 66 yo F multiple sclerosis, asthma, DM2, HTN, hypothyroidism presented to the ER as stroke alert for left sided facial droop and dysarthria. Per patient earlier today had acute episode of weakness of the left side of her body with some difficulty speaking. By time of ER provider review patient no longer had dysarthria or weakness. She was evaluated by Telestroke Neurologist and CT Head performed which did not show any acute pathology (though was motion degraded exam). CTA Head/Neck not performed due to DUNCAN with creatinine 2.1. Recommendation made for MRI/MRA in AM with aspirin at time of telestroke evaluation; suspicion of TIA given resolution of symptoms by time of evaluation. Patient received aspirin and hospitalist service was consulted for admission. At time of my interview patient denies SOB, chest pain, headache, nausea, asymmetric upper or lower extremity weakness. She reports that sometimes she feels like her legs get overwhelmingly weak during an MS flare, but she has not had one in "a long time". In general, she walks only from her bed to her bedside commode and back with some assistance out of bed. Principal Diagnosis transient ischemic attack Discharge Exam Constitutional WD/WN, vitals as above Eyes PERRL, conjunctivae normal, anicteric sclerae Gastrointestinal (Abdomen) Inspection/Auscultation: normal bowel sounds; abdomen not distended Percussion/Palpation: abdomen soft; abdomen nontender and no guarding Musculoskeletal no cyanosis or clubbing, extremities motor strength 5/5 Skin no rashes, warm and dry Psychiatric Orientation: alert and oriented x 3 Discharge Data Allergies Allergy/AdvReac Type Severity Reaction Status Date / Time codeine AdvReac Mild NAUSEATED Verified 08/15/21 18:20 Consultations 08/15/21 18:54 ED Decision to Admit Stat Ordered Studies 08/15/21 18:01 CT head/brain wo con Stat 08/16/21 00:00 MR angio neck wo con Routine 08/16/21 07:00 MR angio head wo con Routine MR brain MS wo con Routine Hospital Course (1) Brain TIA: Dali Smyth is a 66yo female with PMH multiple sclerosis, DM2, asthma, HTN, and hypothyroidism presents with TIA. Transient ischemic attack: - Presented with complaints of unilateral weakness and facial droop/dysarthria, resolved by time of ER provider evaluation - CT head without acute process, MRI brain without evidence of stroke, MRA head/neck unremarkable - Patient was evaluated by Dr. Jose F Ryder with [facility] [place] Telestroke - Suspicious of MS flare vs. TIA; however, MS flare unlikely given short duration of symptoms and improvement without steroids - Lipid panel wnl, A1c: 6.3% - Echo without sign of PFO/ASD/VSD - continue ASA 81mg daily in the setting of TIA - patient returned to her reported baseline prior to discharge - to have [facility] Home health upon discharge (patient was to be discharged from [facility] on 08/16 with [facility] health prior to TIA) Acute kidney injury: (resolved) - Presents with creatinine 2.04 (baseline 0.7) - Cr on discharge of 0.95 Chronic Pitting edema: - Per outside record, patient was on Bumex at one time, and is now on Lasix PO daily for pitting edema - Edema likely dependent edema in relatively non-ambulatory patient (only walks to commode and back to bed with assistance) - Satish hose/leg wraps as able - Low sodium diet Hypomagnesemia: (resolved) - Admission Mag of 1.5; received MgSulfate 1g IV in ER - Continue MagOx 400mg PO daily Type 2 Diabetes Mellitus: - HbA1c 6.3% (08/15/2021) Multiple sclerosis: - Patient reports she has not had a flare in about a decade - Patient does not have a neurologist; recommended establishing with [facility]; appointment request submitted (2) Multiple sclerosis: (3) Diabetes: (4) Hypomagnesemia: (5) DUNCAN (acute kidney injury): (6) Left-sided weakness: (7) Hypertension: (8) Hypothyroidism: (9) Asthma: Total Time Total Time Spent Total Time Spent (In Minutes): <30 Discharge Plan Discharge Items Patient Disposition: Home - Home Health Services Reason For Visit: TIA VS. MS FLARE, DUNCAN Discharge Diagnosis: TIA Activity: Resume your previous activity Non-emergency contact: Primary Care Provider and Neurologist Call non-emergency contact if: you have any medication questions and your symptoms worsen Follow-up/Referrals: Vernon Sanz MD [Primary Care Provider] - Diet: Carb Consistent or DM2 and Low Sodium (2gm) Diet Texture: Easy to Chew Addtl Attending Provider Instructions: You were admitted to the hospital for TIA (transient ischemic attack). We performed a variety of tests and imaging to evaluate for evidence of a stroke, and it does not appear that you had a stroke, and we feel it is safe for you to return home. Follow-up appointments: Make a follow-up appointment with your PCP within the next week. It is very important that you follow up with them shortly after discharge from the hospital. We also recommend establishing care with a local neurologist for monitoring and management of your multiple sclerosis. We have requested an appointment with [facility]. Their schedulers should be in contact with you soon to schedule an appointment. If you have not heard from them by Friday, give their clinic a call at [phone]. Keep all your follow-up appointments as already scheduled. If you cannot make an appointment, notify your provider. Medications: Your medication list has been reviewed and reconciled upon discharge to ensure accuracy and continuity of care. An updated list of all your medications is included with your hospital discharge paperwork. Please review this list closely, and make note of any changes. * We sent a prescription for aspirin to your pharmacy. Take aspirin (81mg) one tablet daily. Take your medications as instructed; do not skip a dose of your medicines. Make sure all of your doctors know every medicine you are taking (including dskf-[id number] medicines, vitamins, and supplements). Call your primary care provider before taking any new medicines (including tkqe-cqw-zqkwvrj medicines, vitamins, and supplements), because some of these may interact with your current medications, or may make your symptoms worse. Tell your primary care provider if you cannot afford your medications. CONTACT YOUR PRIMARY CARE PROVIDER if you have: Difficulty following your treatment plan Difficulty taking your medications Questions or concerns about your medication regimen CALL 911 OR GO TO THE EMERGENCY DEPARTMENT if you experience any of the following: Slurred speech, facial droop, sudden-onset weakness, or other similar symptoms Sudden, severe abdominal pain or nausea/vomiting Severe chest pain, or chest pain that radiates (moves) to your jaw or arm Sudden, severe shortness of breath or difficulty breathing Thank you for allowing us to participate in your care. Pending Studies at Discharge: No Stand-Alone Forms: My [facility] My [employer] My Life My Heartbeats, Smoking Cessation Medications and DC Order Prescriptions: New aspirin 81 mg Tablet,Delayed Release (Dr/Ec) 81 mg PO QAM Qty: 30 RF: 0 Continued metformin 500 mg tablet 500 mg PO BID17 RF: 0 levothyroxine 25 mcg tablet 25 mcg PO DAILYBB RF: 0 omeprazole 20 mg capsule,delayed release(DR/EC) 20 mg PO DAILY RF: 0 fluticasone propion-salmeterol [Wixela Inhub] 100-50 mcg/dose blister with device 1 ea INHALATION BID RF: 0 benazepril 40 mg tablet 40 mg PO DAILY RF: 0 albuterol sulfate 2.5 mg /3 mL (0.083 %) solution for nebulization 2.5 mg inhalation Q6H PRN (Reason: Shortness Of Breath Or Wheezing) RF: 0 Desenex 2 % Powder 1 applic EXT BID Qty: 43 RF: 0 sennosides [Senokot] 8.6 mg Tablet 17.2 mg PO QAM Qty: 60 RF: 0 nystatin 100,000 unit/mL Suspension 5 ml PO QID 10 Days Qty: 200 RF: 0 fexofenadine 180 mg Tablet 180 mg PO QAM Qty: 30 RF: 1 insulin aspart U-100 [Novolog U-100 Insulin aspart] 100 unit/mL Solution 1 sliding scale dose SC AC Qty: 1 RF: 0 fluticasone propionate 50 mcg/actuation [place],Suspension 2 spray NA DAILY Qty: 1 RF: 2 Saline Mist 0.65 % Aerosol,[place] 2 spray NA Q1H PRN (Reason: nasal congestion) Qty: 1 RF: 0 diclofenac sodium [Voltaren Arthritis Pain] 1 % Gel 4 g EXT QID Qty: 1 RF: 2 guaifenesin [Mucinex] 600 mg Tablet Extended Release 12hr 1,200 mg PO Q12 10 Days Qty: 40 RF: 0 furosemide [Lasix] 20 mg tablet 20 mg PO QAM Qty: 30 RF: 2 potassium chloride 10 mEq tablet extended release 10 meq PO DAILY Qty: 30 RF: 2 magnesium oxide 400 mg (241.3 mg magnesium) tablet 400 mg PO DAILY Qty: 30 RF: 2 acetaminophen [Tylenol] 325 mg Tablet 650 mg PO Q4H PRN (Reason: PAIN/TEMP=>100) RF: 0 nystatin 100,000 unit/gram Cream 1 applic TOPICAL TID RF: 0 Lantus Solostar U-100 Insulin 100 unit/mL (3 mL) insulin pen 15 unit SC QAM RF: 0 Discharge Orders: Discharge Order (Routine); Ordered 08/17/21 Ordered By: Malvin Christianson/Other Patient Handouts: A1C, 5 Steps for Eating Healthier, TIA Dc Admission Data Admit Date/Time: 08/15/21 21:23 Attending Provider: Armando Brush Admit Provider: Thi Gardiner Primary Care Provider: Vernon Sanz Other Providers: Keon Zimmerman ; [facility],Home Healthcare Other Interventions: Discharge Summary Assessment (RN) Last Done: 08/17/21 10:44 Supervising Physician Co-Signing Physician Notes I personally examined the patient and verified all ray points of history and exam, discussed case, and agree with decision making with Dr Mohamud feeling better wants to go home vitals noted nad heent nc at mmm breathing unlabored no acccessory muscles good effort skin no rashes no pallor or icterus neuro no focal deficits TIA - probably small vessel disease. add asa. vascular risks under control weakness - she feels she's at her baseline. safe for home Resident Activity Tracking Resident Involvement: Resident Care Provided Care Provided: [facility] Medicine Home Health Attestation I certify that this patient is under my care and that I, or a physicians dam tender assistant working with me, had a face to-face encounter that meets the home health [id number] encounter requirements with this patient. The encounter with the patient was in whole, or in part, for the following medical condition, which is the primary reason for home health care (list medical condition): I certify that, based on my findings, the following services are medically necessary home health services: My clinical findings support the need for the above services because: Further, I certify that my clinical findings support that this patient is homebound (i.e. absences from home require considerable and taxing effort and are for medical reasons or temple services or infrequently or of short duration when for other reasons) because: Certification for Home Health Services: Based on the above findings, I certify that this patient is confined to the home and needs intermittent senior care care, physical therapy and/or speech therapy or continues to need occupational therapy. The patient is under my care, and I have initiated the establishment of the plan of care. This patient will be followed by a physician who will periodically review the plan of care.
[2021-08-17] MEDS: ENOXAPARIN INJ 40 MG/0.4 ML SYR SQ SCH (10:36)
--- NOTE | 2021-08-17 18:46 | Billing Data ---
Date of Service August 17, 2021 Coding Level of Care Code D/C DAY MANAGEMENT <30 MINS
== END 2021-08-17 15:30 | disposition home health service (06) ==
LOC: ED 18:01 → SUATTDRO 21:23 → EDINP 21:23 → INTOOBSV 21:23 → 2N 22:15

== ENCOUNTER 2023-07-20 04:17 | Inpatient (IN) ==
--- OUTSIDE RECORDS SUMMARY | 2023-07-20 04:25 | External Medical Summary | Continuity of Care Document ---
Author Name Unknown Organization [address] [id number] Care Team Providers Care Terrazzo Tile Setter Name Role Phone Rhona Canales Primary Care Physician [phone] Encounter [facility] [id number] Date(s): 07/02/23 - 07/02/[address] [address] [phone] Encounter Diagnosis Acute recurrent maxillary sinusitis(Discharge Diagnosis) - 07/02/23 Cough(Discharge Diagnosis) - 07/02/23 Discharge Disposition: Home or Self Care Attending Physician: MD aHrris [place] Referring Physician: MD Kimberly, Iesha Allergies, Adverse Reactions, Alerts Substance Reaction Severity Status codeine Active Singulair 1 Sleep walking Active 1Husband found pt. out in the driveway with no idea how she got there in the middle of the night. Assessment and Plan Extracted from: Title:Office Visit Note Author:MD Kimberly, [facility] Date:07/02/23 1.Acute recurrent maxillar y sinusitis Advised to use Flonase 2 sprays on each nostril at night. Antihistamine of choice (Zyrtec, Claritin, Allergra, Xyxal) once a day; saline nasal rinse or netipot as often as possible during day time.May take Tylenol as needed for pain. Increase oral fluid intake. 2.Cough CXR ordered. Tessalon perles 100 mg 3x a day as needed for cough. Continue inhaler and nebulizer. Doxycycline 100 mg 1 tab 2x a day for 7 days. Doxycycline 100 mg 2x a day prescribed. Informed patient that symptoms most likely viral cause. Advised to hold off with antibiotic use for at least 4-5 days. If symptoms worsens or lingers then may start the oral antibiotic.Take the antibiotic with food. Advised to take probiotics. Discussed with patient and about risk of taking antibiotic. Informed them of C. diff infection. Advised to seek immediate consult if with worsening of symptoms or if you develop new symptoms. Immunizations Given and Recorded Vaccine Date Status Refusal Reason zoster vaccine, inactivated 04/15/23 Recorded zoster vaccine, inactivated 07/17/19 Recorded zoster vaccine, inactivated 05/14/19 Recorded SARS-CoV-2 mRNA (Pfizer 12+) bivalent 04/15/23 Rec orded influenza virus vaccine, inactivated 03/21/23 Chicho rded influenza virus vaccine, inactivated 03/21/22 Give n influenza virus vaccine, inactivated 03/26/21 Give n influenza virus vaccine, inactivated 03/11/20 Chicho rded influenza virus vaccine, inactivated 04/20/19 Give n influenza virus vaccine, inactivated 03/24/18 Chicho rded influenza virus vaccine, inactivated 04/01/17 Give n influenza virus vaccine, inactivated 03/14/16 Give n influenza virus vaccine, inactivated 04/21/15 Give n influenza virus vaccine, inactivated 04/04/14 Give n pneumococcal 20-valent conjugate vaccine 05/28/22 Given SARS-CoV-2 (COVID-19) mRNA BNT-162b2 vax 1 04/18/21 Given SARS-CoV-2 (COVID-19) mRNA BNT-162b2 vax 2 09/30/20 Recorded SARS-CoV-2 (COVID-19) mRNA BNT-162b2 vax 3 09/09/20 Recorded pneumococcal 13-valent vaccine 04/20/19 Given tetanus/diphtheria/pertuss, acel (Tdap) 12/04/10 R ecorded influenza virus vaccine, H1N1 4 06/03/09 Recorded 1Early/Late Reason: Early/Late Reason: Other : Order placed prior to appt. 2Result Comment: 2021-08-20: Historical information-source unspecified 3Result Comment: 2021-08-20: Historical information-source unspecified 4Result Comment: 2021-08-20: Historical information-source unspecified Medications Advair Diskus 250 mcg-50 mcg Start: 06/30/23 8:28:00 EST, See Instructions, Disp# 60 each, Refills: 2, INHALE 1 PUFF TWICE DAILY, Pharmacy: [facility] Start Date: 06/30/23 Status: Ordered albuterol 0.083% for nebulization Start: 04/24/22 16:50:00 EDT, 3 mL, inhaled, tid, Disp# 810 mL, Refills: 3, PRN: as needed for wheezing, Pharmacy: [facility]/pharmacy #6 Start Date: 04/24/22 Status: Ordered aspirin Start: 11/28/22 13:37:00 EDT, 81 mg =, PO, Daily Start Date: 11/28/22 Status: Ordered atorvastatin 40 mg oral tablet Start: 03/12/23 12:20:00 EDT, 1 tab, PO, qhs, Disp# 90 tab, Refills: 3, Pharmacy: [facility]/pharmacy #[id number] Start Date: 03/12/23 Status: Ordered Atrovent 21 mcg/inh nasal spray Start: 03/26/23 14:22:00 EDT, 2 spray, intranasal, bid, Disp# 3 each, Refills: 3, Note to Pharmacy:0.03% intranasal solution, Pharmacy: [facility]/pharmacy #[id number] Start Date: 03/26/23 Status: Ordered benazepril 40 mg oral tablet Start: 03/12/23 12:19:00 EDT, See Instructions, Disp# 90 tab, Refills: 3, TAKE 1 TABLET BY MOUTH ONCE DAILY, Pharmacy: [facility]/pharmacy #[id number] Start Date: 03/12/23 Status: Ordered bumetanide 0.5 mg oral tablet Start: 03/12/23 12:19:00 EDT, See Instructions, Disp# 45 tab, Refills: 11, TAKE 1 TABLET BY MOUTH EVERY DAY, WITH 2ND DOSE IN EVENING DIRECTED FOR FLUID OVERLOAD, Pharmacy: [facility]/pharmacy #[id number] Start Date: 03/12/23 Status: Ordered Colace 100 mg oral capsule Start: 03/12/23 12:20:00 EDT, 1 cap, PO, bid, Disp# 180 cap, Refills: 3, PRN: as needed for constipation, Pharmacy: [facility]/pharmacy #[id number] Start Date: 03/12/23 Status: Ordered diclofenac potassium 50 mg oral tablet Start: 03/27/23 14:01:00 EDT, 1 tab, PO, tid, Disp# 270 tab, Refills: 3, PRN: as needed for pain, Pharmacy: [facility]/pharmacy #[id number] Start Date: 03/27/23 Status: Ordered doxycycline monohydrate 100 mg oral tablet Start: 07/02/23 11:38:00 EST, 1 tab, PO, bid, Disp# 14 tab, Pharmacy: [facility]/pharmacy #[id number] Start Date: 07/02/23 Stop Date: 07/09/23 Status: Ordered levothyroxine 25 mcg (0.025 mg) oral tablet Start: 05/12/23 16:27:00 EDT, 1 tab, PO, Daily, Disp# 90 tab, Refills: 3, Pharmacy: [facility] [id number] Start Date: 05/12/23 Status: Ordered LORazepam 1 mg oral tablet Start: 03/14/23 16:49:00 EDT, 0.5 tab, PO, tid, Disp# 45 tab, Refills: 3, PRN: as needed for anxiety, Pharmacy: [facility]/pharmacy #[id number] Start Date: 03/14/23 Status: Ordered metFORMIN 500 mg oral tablet Start: 04/09/23 19:19:00 EDT, 1 tab, PO, bid, Disp# 180 tab, Refills: 3, Pharmacy: [facility]/pharmacy #[id number] Start Date: 04/09/23 Status: Ordered multivitamin Start: 08/30/13 10:10:00, 1 tab, PO, Daily Start Date: 08/30/13 Status: Ordered nystatin 100,000 units/g topical powder Start: 09/25/22 16:09:00 EDT, See Instructions, Disp# 30 g, Refills: 6, Apply sparing to area underbreasts bid, Pharmacy: [facility]/pharmacy #[id number] Start Date: 09/25/22 Status: Ordered nystatin-triamcinolone 100,000 units/g-0.1% topical cream Start: 01/30/22 11:47:00 EDT, 1 appl, topical, bid, Disp# 60 g, Refills: 1, to area to affected area as directed, Pharmacy: [facility]/pharmacy #[id number] Start Date: 01/30/22 Stop Date: 02/27/22 Status: Ordered omeprazole 20 mg oral delayed release capsule Start: 04/09/23 19:19:00 EDT, See Instructions, Disp# 90 cap, Refills: 3, TAKE 1 CAPSULE BY MOUTH EVERY DAY, Pharmacy: [facility]/pharmacy #[id number] Start Date: 04/09/23 Status: Ordered ONE TOUCH ULTRA BLUE TEST STRP Start: 03/03/23 12:04:00 EDT, ONE TOUCH ULTRA BLUE TEST STRP, See Instructions, Disp# 50 strip, Refills: 5, CHECK GLUCOSE LEVEL FASTING IN MORNING AND BEFORE EVENING MEAL, Pharmacy [facility]ORE [id number] Start Date: 03/03/23 Status: Ordered One Touch Ultra Glucose Monitor Kit Start: 08/21/21 17:13:00 EST, See Instructions, Disp# 1 kit, Check glucose levels twice a day, Pharmacy: [facility]/pharmacy #[id number] Start Date: 08/21/21 Status: Ordered One Touch Ultrasoft (28G) Lancets Start: 08/22/21 9:52:00 EST, See Instructions, Disp# 100 lancet, Refills: 3, Use to test BSG BID, Note to Pharmacy: Dx: E11.9, Pharmacy: [facility]/pharmacy #[id number] Start Date: 08/22/21 Status: Ordered potassium bicarbonate Start: 03/21/22 11:11:00 EDT Start Date: 03/21/22 Status: Ordered Super B Complex oral tablet Start: 06/10/18 10:30:00 EST, 1 tab, PO, Daily Start Date: 06/10/18 Status: Ordered Tessalon Perles 100 mg oral capsule Start: 07/02/23 11:36:00 EST, 1 cap, PO, tid, Disp# 30 cap, [id number] Start Date: 07/02/23 Stop Date: 07/12/23 Status: Ordered turmeric Start: 05/28/22 11:30:00 EST Start Date: 05/28/22 Status: Ordered Vitamin D3 5000 intl units (125 mcg) oral tablet Start: 03/12/23 12:20:00 EDT, 1 tab, PO, Daily, Disp# 90 tab, Refills: 3, Pharmacy: [facility]/pharmacy #[id number] Start Date: 03/12/23 Status: Ordered Mental Status 07/02/23 Barriers to Learning one year None evide nt Mandatory Health Literacy Documentation Yes Health Literacy Communication Barriers N ever Primary Language Iranian Problem List Condition Confirmation Course Effective Dates Status H ealth Status Informant Allergic rhinitis Confirmed Active Allergic asthma Confirmed Active MRSA (methicillin resistant staph aureus) culture positive 1 Confirmed 01/30/22 Active Ventral hernia Confirmed Active HTN (hypertension) Confirmed Active Adult hypothyroidism Confirmed Active MS (multiple sclerosis) Confirmed Active Type II diabetes mellitus Confirmed Active Weight disorder Confirmed Active Wound buttock swab rash 4+ STAPHYLOCOCCUS AUREUS (RESISTANT TO OXACILLIN) (*MRSA*) Diagnosis Diagnosis Type Effective Dates Health Status Cl inical Service Informant Acute recurrent maxillary sinusitis Discharge Diagnosis 07/02/23 Cough Discharge Diagnosis 07/02/23 Procedures Procedure Date Related Diagnosis Body Site Status MR ANGIOGRAPH HEAD W/O&W/DYE 1, 2, 3 08/15/21 Completed MRA head 4 08/15/21 Completed Chest X-ray 5 07/10/21 Completed None Completed Pulmonary function test 6 Completed 1Paranasal sinus disease 2Grossly unremarkable MR angiogram of the brain noting a severely motion compromised examination. 3Unchanged T2/FLAIR hyperintense foci throughout the white matter suggestive of chronic microvascular ischemic disease versus semyelinating proccess. 4Limited exam due to motion artifact with no definite stenosis or occlusion seen. However, CTA of the neck would be the study of choice for further eval. 5impression: 1. Mild Cardiomegaly 2. left basilar densities. There are nonspecific but favor atelectasis. A pneumonia could also havea similar appearance in the approptiate clinical setting 6the spirometry flow volume loop are normal Vital Signs Most recent to oldest [Reference Range]: 1 Heart Rate 82 bpm (07/02/23 11:03 AM) Respiratory Rate 16 br/min (07/02/23 11:03 AM) Blood Pressure 104/62mmHg (07/02/23 11:03 AM) Social History Social History Type Response Smoking Status Never smoked cigaret grabiel Sex Female [facility] Outpt Note * MD Kimberly, [place]: PERFORM Event Display: [facility] Outpt Note Authored Date: [id number] Chief Complaint ongoing cough/congestion, states course of abx last month did not help, is taking Dayquil History of Present Illness 68 y/o F c/o nasal congestion with coughx 2-3 weeks. For the past few days, symptoms has gotten worse.Wetand productive cough with wheezing and sob. Slightly and temporarily relieved by inhalerand nebulizer and use of nasal spray. c/o Runny nose and congestion. No fever. , no chest pain. At home COVID test was negative. Denies fever, headache, dizziness. Denies ear pain Denies chest pain Denies abdominal pain, nausea or vomiting, diarrhea or constipation Denies dysuria, frequency or urgency of urination Denies blood in the urine or stool Physical Exam Vitals & Measurements HR:82(Monitored) RR:16 BP:104/62 SpO2:97% PHQ2 Data(Data Documented on:07/02/2023 11:00) Emotional health assessment NEGATIVE General: alert and oriented, no acute distress Eye: PERRL, EOMI, normal conjunctiva HENT: normocephalic, TMs clear, normal hearing, moist oral mucosa, no pharyngeal erythema, no sinus tenderness. whitish nasal discharge, boggy nasal mucosa. Neck: supple, non-tender, no lymphadenopathy, no thyromegaly Resp: Lungsoccasional wheezing both lung collazo.non-labored respirations, symmetrical expansion, no chest wall tenderness CV: normal rate and rhythm, no murmur, no gallop MS: sitting on a wheelchair Neurologic: alert and oriented, normal sensory, normal motor, no focal deficits, CN II-XII intact, normal DTRs Psychiatric: appropriate mood and affect, normal judgement, non-suicidal Assessment/Plan 1.Acute recurrent maxillary sinusitis Advised to use Flonase 2 sprays on each nostril at night. Antihistamine of choice (Zyrtec, Claritin, Allergra, Xyxal) once a day; saline nasal rinse or netipot as often as possible during day time.May take Tylenol as needed for pain. Increase oral fluid intake. 2.Cough CXR ordered. Tessalon perles 100 mg 3x a day as needed for cough. Continue inhaler and nebulizer. Doxycycline 100 mg 1 tab 2x a day for 7 days. Doxycycline 100 mg 2x a day prescribed. Informed patient that symptoms most likely viral cause. Advised to hold off with antibiotic use for at least 4-5 days. If symptoms worsens or lingers then may start the oral antibiotic.Take the antibiotic with food. Advised to take probiotics. Discussed with patient and about risk of taking antibiotic. Informed them of C. diff infection. Advised to seek immediate consult if with worsening of symptoms or if you develop new symptoms. 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 Diabetes mellitus with hyperglycemia Need for pneumococcal vaccine Need for vaccination for Strep pneumoniae Rash Skin candidiasis Tinea Procedure/Surgical History MRA head (08/15/2021) MR ANGIOGRAPH HEAD W/O&W/DYE (08/15/2021) Chest X-ray (07/10/2021)Pulmonary function testNone Medications albuterol(albuterol 0.083% for nebulization), 2.5 mg= 3 mL, inhaled, tid, PRN, 3 refills aspirin, 81 mg, PO, Daily atorvastatin(atorvastatin 40 mg oral tablet), 40 mg= 1 tab, PO, qhs, 3 refills benazepril(benazepril 40 mg oral tablet), See Instructions, 3 refills benzonatate(Tessalon Perles 100 mg oral capsule), 100 mg= 1 cap, PO, tid bumetanide(bumetanide 0.5 mg oral tablet), See Instructions, 11 refills cholecalciferol(Vitamin D3 5000 intl units (125 mcg) oral tablet), 5000 Int_Unit= 1 tab, PO, Daily,3 refills diabetes supplies(One Touch Ultra Glucose Monitor Kit), See Instructions diabetes supplies(One Touch Ultrasoft (28G) Lancets), See Instructions, 3 refills diclofenac(diclofenac potassium 50 mg oral tablet), 50 mg= 1 tab, PO, tid, PRN, 3 refills docusate(Colace 100 mg oral capsule), 100 mg= 1 cap, PO, bid, PRN, 3 refills doxycycline(doxycycline monohydrate 100 mg oral tablet), 100 mg= 1 tab, PO, bid fluticasone-salmeterol(Advair Diskus 250 mcg-50 mcg), See Instructions ipratropium nasal(Atrovent 21 mcg/inh nasal spray), 2 spray, intranasal, bid, 3 refills levothyroxine(levothyroxine 25 mcg (0.025 mg) oral tablet), 1 tab, PO, Daily LORazepam(LORazepam 1 mg oral tablet), 0.5 mg= 0.5 tab, PO, tid, PRN, 3 refills metFORMIN(metFORMIN 500 mg oral tablet), 500 mg= 1 tab, PO, bid, 3 refills multivitamin(Super B Complex oral tablet), 1 tab, PO, Daily multivitamin, 1 tab, PO, Daily nystatin topical(nystatin 100,000 units/g topical powder), See Instructions, 6 refills nystatin-triamcinolone topical(nystatin-triamcinolone 100,000 units/g-0.1% topical cream), 1 appl, topical, bid, 1 refills omeprazole(omeprazole 20 mg oral delayed release capsule), See Instructions, 3 refills potassium bicarbonate turmeric unlisted medication(ONE TOUCH ULTRA BLUE TEST STRP), See Instructions Allergies SingulairSleep walking codeine Social History Smoking Status Never smoked cigarettes Alcohol - No Risk Exercise - Does not exercise Tobacco - Denies Tobacco Use Use:Never smoker Family History Cancer: Brother. Health Status Family Member(s) Immunizations Vaccine Date Status zoster vaccine, inactivated 04/15/2023 Recorded SARS-CoV-2 mRNA (Pfizer 12+) bivalent 04/15/2023 Recorded influenza virus vaccine, inactivated 03/21/2023 Recorded pneumococcal 20-valent conjugate vaccine 05/28/2022 Given influenza virus vaccine, inactivated 03/21/2022 Given SARS-CoV-2 (COVID-19) mRNA BNT-162b2 vax 04/18/2021 Given Comments : Early/Late Reason: Other : Order placed prior to appt. influenza virus vaccine, inactivated 03/26/2021 Given SARS-CoV-2 (COVID-19) mRNA BNT-162b2 vax 09/30/2020 Recorded Comments : 2021-08-20: Historical information-source unspecified SARS-CoV-2 (COVID-19) mRNA BNT-162b2 vax 09/09/2020 Recorded Comments : 2021-08-20: Historical information-source unspecified influenza virus vaccine, inactivated 03/11/2020 Recorded zoster vaccine, inactivated 07/17/2019 Recorded zoster vaccine, inactivated 05/14/2019 Recorded influenza virus vaccine, inactivated 04/20/2019 Given pneumococcal 13-valent vaccine 04/20/2019 Given influenza virus vaccine, inactivated 03/24/2018 Recorded influenza virus vaccine, inactivated 04/01/2017 Given influenza virus vaccine, inactivated 03/14/2016 Given influenza virus vaccine, inactivated 04/21/2015 Given influenza virus vaccine, inactivated 04/04/2014 Given tetanus/diphtheria/pertuss, acel (Tdap) 12/04/2010 Recorded influenza virus vaccine, H1N1 06/03/2009 Recorded Comments : 2021-08-20: Historical information-source unspecified Recommendations Health Maintenance Pending(in the next year) Due Adult COVID-19 Vaccination due07/02/23Unknown Frequency Adult Social Determinants of Health Screening due07/02/23Unknown Frequency Adult Tdap/Td Vaccine due07/02/23Unknown Frequency Breast Cancer Screening due07/02/23Unknown Frequency Diabetic Eye Exam due07/02/23Unknown Frequency Falls Plan of Care due07/02/23Unknown Frequency Hepatitis C Screening due07/02/23One-time only Medicare Annual Wellness Visit due07/02/23and every 1year Osteoporosis Screening due07/02/23One-time only Due In Future Body Mass Index not due until09/26/23and every 366day Adult Influenza Vaccine not due until01/12/24and every 1year Diabetes Management A1c not due until03/25/24and every 366day Satisfied(in the past 1 year) Satisfied Adult COVID-19 Vaccination on04/15/23.Satisfied by TOÑITO Pandey Angela Adult Influenza Vaccine on03/21/23.Satisfied by THEE Jason Gillian Body Mass Index on09/25/22.Satisfied by TOÑITO Pereira Bobbi Diabetes Management A1c on03/25/23.Satisfied by Contributor_system, [id number] Diabetes Nephropathy Management on09/16/22.Satisfied by Contributor_system, [id number] Electronic Signature on File Electronically Reviewed/Signed by: Iesha Harris MD Author Signature Dt/Tm:07/02/2023 06:54 PM Department of Family Medicine VS Patient Care team information Care Team Personnel Name: RAY Canales Tara Position: Nurse Pract - Family Med Member Role: Primary Care Provider Address: Address: [address] [place] [address] [place] Care Team Related Persons Name: FRED HERNANDEZ Address: [address] [place] [phone]
--- NOTE | 2023-07-20 04:44 | Emergency Department Note ---
Impression & Plan Dyspnea, Hypomagnesemia, URI (upper respiratory infection), Hypothermia, Acute UTI (urinary tract infection) ED Provider Note ED Provider Note NAME: GARRICK HERNANDEZ AGE:68 SEX: Female : 1955 ARRIVES VIA: EMS INFORMANT: Patient ED PROVIDER(s): Zora Aguayo DO CHIEF COMPLAINT: worsening asthma and chest tightness HPI: This is a 68-year-old female presents emergency room due to concern for 2 to 3 days of increased shortness of breath and asthma-like symptoms. Patient states she does have a history of asthma and uses an inhaler at home as needed. She states she was using it in the last several days but did not feel it was helping as much. She states she has had a cough but had difficulty expectorating sputum. She has not noticed any blood in your sputum. She states she has had mild accompanying rhinorrhea. She denies fevers or chills. She states this evening she also felt a sense of chest tightness, denies overt pain. She feels this is related to her breathing. She denies nausea, vomiting, diarrhea. She states she does have some mild leg swelling. She denies any history of heart problems. PAST MEDICAL HISTORY:See Below PAST SURGICAL HISTORY:See Below FAMILY HISTORY:See Below SOCIAL HISTORY:See Below HOME MEDICATIONS:See Below ALLERGIES:See Below VITALS:See Below PHYSICAL EXAMINATION: GENERAL: alert, well appearing, well nourished, no distress, non-toxic, BMI 53 EYE EXAM: normal conjunctiva, PERRL and EOM's grossly intact OROPHARYNX: no exudate, no erythema, lips, buccal mucosa, and tongue normal and mucous membranes are dry NECK: supple, no nuchal rigidity, no adenopathy, non-tender LUNGS: Clear to auscultation. Normal chest wall mechanics, no w/r/r HEART: no murmurs, S1 normal and S2 normal ABDOMEN: abdomen soft, non-tender, normo-active bowel sounds, no masses, no rebound or guarding. BACK: Back is symmetrical on inspection and there is no deformity, no midline tenderness, no CVA tenderness. SKIN: no rashes, petechiae, orbruising UPPER EXTREMITIES: upper extremities are grossly normal. FROM, nml pulses b/l. LOWER EXTREMITIES: 2+ pedal pitting edema b/l. FROM, nml pulses b/l. NEURO EXAM: Normal sensorium, cranial nerves II-XII grossly intact, normal speech, no facial droop,nogross weakness of arms, no gross weakness of legs. Gross sensation intact. No ataxia. Vital Signs: reviewed and remarkable Differential Diagnosis: pneumonia, bronchitis, COPD/Asthma exacerbation, pneumothorax, pulmonary embolism, congestive heart failure, acute coronary syndrome, as well as others were considered MEDICAL DECISION MAKING: This is a 68-year-old female presents emergency department due to concern for 2 to 3 days of increased shortness of breath and possible asthma exacerbation. She also admits to chest tightness. Patient with stable vital signs here although blood pressure mildly low however patient noted to be significantly hypothermic. Labs drawn and sent, IV established, EKG and chest ray performed bedside interpreted by me and patient monitored on telemetry. She was started on a bear hugger. Ultimately a temp sensing Dangelo catheter was placed. She was started on gentle IV fluid rehydration due to unknown renal and cardiac status. She was started on vancomycin and cefepime due to concern for occult sepsis. Blood cultures/procalcitonin added additionally. Patient's chest x-ray without obvious pathology. Patient did feel improved on oxygen here via nasal cannula and was ultimately given DuoNeb treatment with mild improvement. After review of recent echo and as lab results revealed intact renal function, patient's IV fluids were increased as she has a history of hypertension and continued to have borderline/soft blood pressures. Patient continued on the bear hugger without significant improvement in her temperature. This was double checked with follow-up rectal temps additionally which did seem to correlate to the Dangelo. Patient was noted to be hypomagnesemic additionally and was given IV magnesium repletion. Ultimately urine obtained additionally and patient found to have UTI. Bio fire nasal swab revealed rhinovirus/enterovirus. Patient updated several times and did report continuing to feel improved. She was given a total of 30 mL/KG of volume repletion based on ideal body weight while in the emergency room. Hospitalist team was updated at bedside and I did speak with the resident when she came to bedside to evaluate the patient. TSH added due to hypothermia and was reassuring. Due to borderline blood pressures patient was checked numerous times, and updated frequently. Consultation(s): 712: Discussed with FP resident for additional inpatient evaluation and mgmt. ER Treatment Provided: See below Diagnostics Interpreted By Me: -ECG: Normal sinus at 99 with first-degree AV block, leftward axis, normal QRS and QTc, nonspecific ST/T wave changes -Cardiac Monitoring: An order was placed for continuous cardiac monitoring. The monitor shows a rate of 92 with normal sinus rhythm. -Laboratory studies: As stated above and show below. -Imaging studies: X-ray Chest: A single view study of the chest was reviewed and was negative for cardiomegaly, focal infiltrate, effusion, pulmonary edema, or wide mediastinum. Triage Nursing Note Reviewed Prior/Outside Records Reviewed Critical Care: Critical care of 44 min performed to assess and manage high likelihood of life- threatening hypotension and hypothermia, involving labs and imaging performed with assessment to evaluate hypotension and hypothermia diagnosis with frequent reassessment. This time includes bedside time, treatment discussions with patient/family/consultants, documentation time and excludes procedure time. Past Med/Surg History Medical History Morbid obesity Asthma Hypothyroidism Hypertension Left-sided weakness DUNCAN (acute kidney injury) Brain TIA Diabetes Multiple sclerosis UTI (urinary tract infection) Sepsis Acute respiratory failure with hypoxia Osteoarthritis of knees, bilateral Sinusitis, acute Morbid obesity with BMI of 50.0-59.9, adult Tachy-rowena syndrome GERD (gastroesophageal reflux disease) Hypothyroidism Pancreatitis Thrombocytopenia Peripheral edema Septic shock Hypomagnesemia Fungal dermatitis Asthma Hypertension Diabetes Influenza A Pneumonia Multiple sclerosis Surgical History H/O tubal ligation H/O sinus surgery History of arthroscopic knee surgery Hx of tonsillectomy H/O: hysterectomy No pertinent past surgical history Family History Other Family history non-contributory Social History Smoking Status: Never smoker Hx Alcohol Use: No (unknown) Hx Substance Use: No (unknown) Preferred Language: Occitan Communication Ability: Effective Emergency Medicine Nurse Practitioner Required: No Beliefs That Will Affect Care: None marital status: Current Living Situation: Spouse How many Children do You have: 2 Feels Safe at Home: Yes Diet: gluten free during the past year weight has: decreased > 10 lbs Assistive Devices: Walker Allergies Allergies Allergy/AdvReac Type Severity Reaction Status Date / Time montelukast [From [facility]] Allergy Mild Verified 02/14/22 09:42 codeine AdvReac Mild NAUSEATED Verified 02/14/22 09:42 Home Meds Home Medications Medication Instructions Recorded Confirmed albuterol sulfate 2.5 mg/3 mL 2.5 mg inhalation Q6H PRN 06/25/21 07/20/23 (0.083 %) solution for nebulization Shortness Of Breath Or Wheezing benazepril 40 mg tablet 40 mg PO DAILY 06/25/21 07/20/23 levothyroxine 25 mcg tablet 25 mcg PO DAILYBB 06/25/21 07/20/23 metformin 500 mg tablet 500 mg PO BID17 06/25/21 07/20/23 omeprazole 20 mg capsule,delayed 20 mg PO DAILY 06/25/21 07/20/23 release nystatin 100,000 unit/gram topical 1 applic topical TID 08/15/21 02/14/22 cream atorvastatin 40 mg tablet 40 mg PO HS 07/20/23 07/20/23 bumetanide 0.5 mg tablet 0.5 mg PO UD PRN fluid overload 07/20/23 07/20/23 diclofenac potassium 50 mg tablet 50 mg PO TID PRN Pain 07/20/23 07/20/23 fluticasone 250 mcg-salmeterol 50 1 inh inhalation BID 07/20/23 07/20/23 mcg/dose blistr powdr for inhalation ipratropium bromide 21 mcg (0.03 2 spray intranasal BID 07/20/23 07/20/23 %) nasal spray nystatin 100,000 unit/gram topical See Rx Instructions .Route .COMPLEX 07/20/23 07/20/23 powder Previous Rx's Medication Instructions Recorded miconazole nitrate 2 % topical 1 applic EXT BID #43 grams 08/03/21 powder (Desenex) diclofenac sodium 1 % topical gel 4 g EXT QID #1 tube 08/07/21 (Voltaren Arthritis Pain) fluticasone propionate 50 2 spray NA DAILY #1 inhaler 08/07/21 mcg/actuation nasal spray,suspension magnesium oxide 400 mg (241.3 mg 400 mg PO DAILY #30 tabs 08/07/21 magnesium) tablet potassium chloride 10 mEq 10 meq PO DAILY #30 tabs 08/07/21 tablet,extended release sennosides 8.6 mg tablet (Senokot) 17.2 mg (2 x 8.6 mg) PO QAM #60 08/07/21 tabs sodium chloride 0.65 % nasal spray 2 spray NA Q1H PRN nasal 08/07/21 aerosol (Saline Mist) congestion #1 btl aspirin 81 mg tablet,delayed 81 mg PO QAM #30 tabs 08/16/21 release Results & Data (ED) Vital Signs Vital Signs - 24 hr 07/20/23 04:31 07/20/23 04:31 07/20/23 04:31 Temperature Temperature Source Pulse Rate 95 H Pulse Rate from SpO2 Sensor Respiratory Rate 20 Respiratory Effort / Characteristics Non-Labored Spontaneous Spontaneous Labored Respiratory Depth Normal Deep Respiratory Pattern Regular Blood Pressure 100/64 Blood Pressure Mean 76 Pulse Oximetry 93 Oxygen Delivery Method Room Air Room Air Room Air Sepsis Recent Fever Within 48 Hours No Sepsis New/Unexplained Change in Mental Status N/A Sepsis Action Taken by Nursing No Action Required 07/20/23 04:35 07/20/23 04:37 07/20/23 04:45 Temperature Temperature Source Pulse Rate 97 H 95 H 94 H Pulse Rate from SpO2 Sensor 96 H 96 H Respiratory Rate 18 17 Respiratory Effort / Characteristics Respiratory Depth Respiratory Pattern Blood Pressure Blood Pressure Mean Pulse Oximetry 95 93 Oxygen Delivery Method Sepsis Recent Fever Within 48 Hours Sepsis New/Unexplained Change in Mental Status Sepsis Action Taken by Nursing 07/20/23 04:58 07/20/23 05:00 07/20/23 05:15 Temperature 34 C L Temperature Source Rectal Pulse Rate 96 H 94 H Pulse Rate from SpO2 Sensor 95 H 95 H Respiratory Rate 16 22 Respiratory Effort / Characteristics Respiratory Depth Respiratory Pattern Blood Pressure Blood Pressure Mean Pulse Oximetry 95 93 Oxygen Delivery Method Sepsis Recent Fever Within 48 Hours Sepsis New/Unexplained Change in Mental Status Sepsis Action Taken by Nursing 07/20/23 05:30 07/20/23 05:31 07/20/23 05:31 Temperature 33.4 C L 33.5 C L Temperature Source Pulse Rate 98 H 93 H Pulse Rate from SpO2 Sensor 101 H 94 H Respiratory Rate 25 H 18 Respiratory Effort / Characteristics Respiratory Depth Respiratory Pattern Blood Pressure 98/57 L Blood Pressure Mean 85 Pulse Oximetry 98 97 Oxygen Delivery Method Sepsis Recent Fever Within 48 Hours Sepsis New/Unexplained Change in Mental Status Sepsis Action Taken by Nursing 07/20/23 05:38 07/20/23 05:45 07/20/23 06:00 Temperature 33.4 C L 34.0 C L 34.2 C L Temperature Source Dangelo Cath ( Temp Sensing) Pulse Rate 94 H 95 H Pulse Rate from SpO2 Sensor 94 H 95 H Respiratory Rate 21 18 Respiratory Effort / Characteristics Respiratory Depth Respiratory Pattern Blood Pressure Blood Pressure Mean Pulse Oximetry 96 97 Oxygen Delivery Method Sepsis Recent Fever Within 48 Hours Sepsis New/Unexplained Change in Mental Status Sepsis Action Taken by Nursing Laboratory Data 07/21/23 06:06 07/21/23 06:06 Lab Results 07/20/23 Range/Units 04:46 WBC 8.33 (4.8-10.8) K/ul RBC 3.75 L (4.20-5.40) M/uL Hgb 11.7 L (12.0-16.0) g/dl Hct 36.5 L (37.0-47.0) % MCV 97.3 (80.0-100.0) fL MCH 31.2 (25.0-34.0) pg MCHC 32.1 (32.0-36.0) g/dL RDW Std Deviation 57.8 H (36.4-46.3) fL RDW Coeff of Kaia 16.2 H (11.5-14.5) % Plt Count 150 (130-400) K/uL MPV 12.7 H (9.4-12.4) fL Immature Gran % (Auto) 0.6 % Neut % (Auto) 64.6 % Lymph % (Auto) 26.1 % [place] % (Auto) 6.6 % Eos % (Auto) 1.9 % Baso % (Auto) 0.2 % Neut # (Auto) 5.38 (1.40-6.50) K/uL Lymph # (Auto) 2.17 (1.20-3.40) K/uL [place] # (Auto) 0.55 (0.11-0.59) K/uL Eos # (Auto) 0.16 (0.00-0.50) K/uL Baso # (Auto) 0.02 (0.00-0.20) K/uL Immature Gran # (Auto) 0.05 (0.01-0.20) K/uL PT 11.1 (9.0-12.0) Seconds INR 1.0 (0.9-1.1) Sodium 143 (136-145) mmol/L Potassium 4.6 (3.5-5.1) mmol/L Chloride 113 H (98-107) mmol/L Carbon Dioxide 19 L (21-32) mmol/L Anion Gap 11 (3-11) BUN 56 H (6-23) mg/dl Creatinine 1.18 (0.6-1.2) mg/dl Est Cr Clr Drug Dosing 54.4 ml/min Est GFR ( Amer) 54.5 ml/min Est GFR (Non-Af Amer) 47.0 ml/min BUN/Creatinine Ratio 47.5 H (10-20) Glucose 141 H (70-99(Fasting)) mg/dl Calcium 9.7 (8.6-10.3) mg/dl Magnesium 1.4 L (1.7-2.4) mg/dl Total Bilirubin 0.2 (0.2-1.0) mg/dl AST 39 (13-39) U/L ALT 37 (7-52) U/L Alkaline Phosphatase 110 H (34-104) U/L Troponin I High Sens 4.0 (0-14) pg/ml B-Natriuretic Peptide 26 (0-100) pg/ml Total Protein 6.6 (6.0-8.3) gm/dl Albumin 3.6 (3.4-5.0) gm/dl Globulin 3.0 (2.5-4.0) gm/dl Albumin/Globulin Ratio 1.2 (0.9-2) Lipase 81 (11-82) U/L Procalcitonin < 0.05 (0-0.5) ng/ml TSH 4.084 (0.300-4.500) uIu/ml Urine Color Dark Yellow Urine Appearance Cloudy A (Clear) Urine pH 5.0 (4.5-7.5) Ur Specific [place] 1.019 (1.000-1.030) Urine Protein Negative (Negative) Urine Glucose (UA) Negative (Negative) Urine Ketones Trace H (Negative) Urine Blood Negative (Negative) Urine Nitrite Negative (Negative) Urine Bilirubin Negative (Negative) Urine Urobilinogen Negative (Negative) Ur Leukocyte Esterase 2+ H (Negative) Urine WBC (Auto) >30 H (0-5) /hpf Urine RBC (Auto) 0-4 (0-4) /hpf U Hyaline Cast (Auto) 5-10 H (0-5) /lpf U Epithel Cells (Auto) 10-20 H (0-5) /lpf Urine Bacteria (Auto) 4+ H (Negative) Adenovirus (PCR) Not Detected (NotDetected) B. pertussis DNA (PCR) Not Detected (NotDetected) B.parapertussis DNA PCR Not Detected (NotDetected) C. pneumoniae DNA (PCR) Not Detected (NotDetected) Coronavirus OC43 (PCR) Not Detected (NotDetected) Coronavirus HKU1 (PCR) Not Detected (NotDetected) Coronavirus 229E (PCR) Not Detected (NotDetected) SARS-CoV-2 (PCR) Not Detected (NotDetected) Coronavirus NL63 (PCR) Not Detected (NotDetected) Human Metapneumovir PCR Not Detected (NotDetected) Influenza Type A (PCR) Not Detected (NotDetected) Influenza Type B (PCR) Not Detected (NotDetected) M. pneumoniae (PCR) Not Detected (NotDetected) Parainfluenza 1 (PCR) Not Detected (NotDetected) Parainfluenza 2 (PCR) Not Detected (NotDetected) Parainfluenza 3 (PCR) Not Detected (NotDetected) Parainfluenza 4 (PCR) Not Detected (NotDetected) RSV (PCR) Not Detected (NotDetected) Entero/Rhino (PCR) DETECTED A* (NotDetected) Administered Medications Albuterol (Albut/Ipratrop 3mg/0.5mg Neb 3 Ml Vial) 3 ml INH Q6R [facility] Stop: 08/19/23 12:59 Last Admin: 07/21/23 07:07 Dose: Not Given Documented By: [id number] Admin: 07/21/23 00:45 Dose: 3 ml Documented By: Admin: 07/20/23 20:16 Dose: 3 ml Documented By: Admin: 07/20/23 13:26 Dose: 3 ml Documented By: JKIARA Aspirin (Aspirin 81 Mg Ectab) 81 mg PO QAM [facility] Stop: 08/19/23 10:31 Last Admin: 07/20/23 12:38 Dose: 81 mg Documented By: DIANE Enalapril Maleate (Enalapril Maleate 10 Mg Tab) 40 mg PO DAILY [facility] Stop: 08/19/23 10:31 Last Admin: 07/20/23 12:06 Dose: Not Given Documented By: DIANE Enoxaparin Sodium (Enoxaparin Inj 40 Mg/0.4 Ml Syr) 40 mg SQ Q12H [facility] Stop: 08/19/23 19:59 Last Admin: 07/20/23 20:16 Dose: 40 mg Documented By: JUAN CARLOS Fluticasone Propionate (Fluticasone Propionate Na Spr 16 Gm Btl) 2 sprays NA DAILY [facility] Stop: 08/19/23 10:31 Last Admin: 07/20/23 12:40 Dose: 2 sprays Documented By: DIANE Fluticasone/Vilanterol (Fluticasone/Vilanterol 100/25mcg 14 Puffs/Inhaler) 1 puffs INH BID [facility] Stop: 08/19/23 10:31 Last Admin: 07/20/23 21:52 Dose: 1 puffs Documented By: JUAN CARLOS Admin: 07/20/23 12:39 Dose: 1 puffs Documented By: DIANE Cefepime HCl 2,000 mg/ Syringe 20 mls @ 5 mls/min IV Q12H [facility]; Protocol Stop: 07/27/23 15:59 Last Admin: 07/21/23 04:37 Dose: 5 mls/min Documented By: Admin: 07/20/23 15:29 Dose: 5 mls/min Documented By: JUAN CARLOS Insulin Aspart (Insulin Aspart Per Unit Charge) 0 units SC ACHS [facility] Stop: 08/19/23 11:29 Last Admin: 07/20/23 20:23 Dose: Not Given Documented By: JUAN CARLOS Admin: 07/20/23 18:39 Dose: Not Given Documented By: JUAN CARLOS Admin: 07/20/23 14:30 Dose: Not Given Documented By: DIANE Pantoprazole Sodium (Pantoprazole 40 Mg Tab) 40 mg PO DAILY [facility] Stop: 08/19/23 10:31 Last Admin: 07/20/23 12:38 Dose: 40 mg Documented By: DIANE Discontinued Medications Albuterol (Albut/Ipratrop 3mg/0.5mg Neb 3 Ml Vial) 3 ml NEB NOW STA; Protocol Stop: 07/20/23 06:22 Last Admin: 07/20/23 06:58 Dose: 3 ml Documented By: LETICIA Albuterol (Albuterol 0.083% Nebu Soln 3 Ml Vial) Confirm Administered Dose 2.5 mg .ROUTE .STK-MED ONE Stop: 07/20/23 13:40 Last Admin: 07/20/23 14:07 Dose: Not Given Documented By: ANGELINA Sodium Chloride (Nss) 1,000 mls @ 125 mls/hr IV .Q8H [facility] Stop: 07/20/23 21:29 Last Infusion: 07/20/23 08:00 Dose: Infused Documented By: Admin: 07/20/23 05:55 Dose: 125 mls/hr Documented By: LETICIA Magnesium Sulfate/Dextrose (Magnesium Sulfate / D5w) 1 gm in 100 mls @ 100 mls/hr IV Q1H [facility] Stop: 07/20/23 07:20 Last Infusion: 07/20/23 07:58 Dose: Infused Documented By: Admin: 07/20/23 06:58 Dose: 100 mls/hr Documented By: Infusion: 07/20/23 06:58 Dose: Infused Documented By: Admin: 07/20/23 05:54 Dose: 100 mls/hr Documented By: LETICIA Cefepime HCl (Maxipime) 2,000 mg in 20 mls @ 5 mls/min IV NOW STA; Protocol Stop: 07/20/23 06:48 Last Admin: 07/20/23 07:55 Dose: 5 mls/min Documented By: ROLAND Lactated Ringer's (Lr) 1,000 mls @ 999 mls/hr IV .Q1H1M ONE Stop: 07/20/23 09:45 Last Infusion: 07/20/23 10:30 Dose: Infused Documented By: Admin: 07/20/23 09:29 Dose: 999 mls/hr Documented By: PATITO Sodium Chloride (Nss) 500 mls @ 999 mls/hr IV .Q31M ONE Stop: 07/21/23 04:48 Last Infusion: 07/21/23 05:17 Dose: Infused Documented By: Admin: 07/21/23 04:21 Dose: 999 mls/hr Documented By: WILI Discharge Plan Visit Data Chief Complaint: Shortness of Breath/Dyspnea Stated Complaint: SHORT OF BREATH/CHEST PRESSURE ED Provider: Zora Aguayo Discharge Problem: Dyspnea, Hypomagnesemia, URI (upper respiratory infection), Hypothermia, Acute UTI (urinary tract infection) Discharge Instructions Interventions: ED Discharge Assessment Last Done: 07/20/23 10:33
[2023-07-20 05:03] LABS: Basophils # (auto) 0.02 K/uL (0.00-0.20); Basophils % (auto) 0.2 %; Eosinophils # (auto) 0.16 K/uL (0.00-0.50); Eosinophils % (auto) 1.9 %; Hematocrit (blood only) 36.5 % (37.0-47.0); Hemoglobin 11.7 g/dl (12.0-16.0); Immature Granulocytes # (auto) 0.05 K/uL (0.01-0.20); Immature Granulocytes % (auto) 0.6 %; Lymphocytes # (auto) 2.17 K/uL (1.20-3.40); Lymphocytes % (auto) 26.1 %; Mean Corpuscular Hemoglobin 31.2 pg (25.0-34.0); Mean Corpuscular Hgb Conc 32.1 g/dL (32.0-36.0); Mean Corpuscular Volume 97.3 fL (80.0-100.0); Mean Platelet Volume 12.7 fL (9.4-12.4); Monocytes # (auto) 0.55 K/uL (0.11-0.59); Monocytes % (auto) 6.6 %; Neutrophils # (auto) 5.38 K/uL (1.40-6.50); Neutrophils % (auto) 64.6 %; Platelet Count 150 K/uL (130-400); RDW Coefficient of Variation 16.2 % (11.5-14.5); RDW Standard Deviation 57.8 fL (36.4-46.3); Red Blood Count 3.75 M/uL (4.20-5.40); White Blood Count 8.33 K/ul (4.8-10.8)
[2023-07-20 05:18] LABS: Albumin Globulin Ratio 1.2 (0.9-2); Albumin Level 3.6 gm/dl (3.4-5.0); BUN Creatinine Ratio 47.5 (10-20); Bilirubin,Total 0.2 mg/dl (0.2-1.0); Calcium 9.7 mg/dl (8.6-10.3); Creatinine Clr Calc Pharmacy 54.4 ml/min; Est GFR (African American) 54.5 ml/min; Magnesium 1.4 mg/dl (1.7-2.4); Potassium 4.6 mmol/L (3.5-5.1); Total Protein 6.6 gm/dl (6.0-8.3)
[2023-07-20] MEDS ORDERED: SODIUM CHLORIDE 0.9% 1,000 ML IV SCH (05:30)
[2023-07-20 05:33] LABS: Prothrombin Time 11.1 Seconds (9.0-12.0); Thyroid Stimulating Hormone 4.084 uIu/ml (0.300-4.500)
[2023-07-20] MEDS: MAGNESIUM SULFATE / D5W 1 GM/100 ML BAG IV SCH ×2 (05:54→06:58)
[2023-07-20] MEDS ORDERED: ALBUT/IPRATROP 3MG/0.5MG NEB 3 ML VIAL NEB STA (06:21)
[2023-07-20 06:28] LABS: Appearance Urine Cloudy (Clear); Bacteria Urine Automated 4+ (Negative); Bilirubin Urine Negative (Negative); Blood Urine Negative (Negative); Color Urine Dark Yellow; Glucose Urine UA Negative (Negative); Ketones Urine Trace (Negative); Leukocyte Esterase Urine 2+ (Negative); Nitrite Urine Negative (Negative); Protein Urine Negative (Negative); RBC Urine Automated 0-4 /hpf (0-4); Specific Gravity Urine 1.019 (1.000-1.030); Urobilinogen Urine Negative (Negative); WBC Urine Automated >30 /hpf (0-5)
[2023-07-20] MEDS ORDERED: CEFEPIME 2,000 MG/20 ML VIAL IV STA (06:45)
[2023-07-20 07:09] LABS: Adenovirus PCR Not Detected (NotDetected); Bordetella parapertussis PCR Not Detected (NotDetected); Bordetella pertussis PCR Not Detected (NotDetected); Chlamydia pneumoniae PCR Not Detected (NotDetected); Coronavirus 229E PCR Not Detected (NotDetected); Coronavirus CoV-2 (COVID19)PCR Not Detected (NotDetected); Coronavirus HKU1 PCR Not Detected (NotDetected); Coronavirus NL63 PCR Not Detected (NotDetected); Coronavirus OC43PCR Not Detected (NotDetected); Human Metapneumovirus PCR Not Detected (NotDetected); Influenza A PCR Not Detected (NotDetected); Influenza B PCR Not Detected (NotDetected); Mycoplasma pneumoniae PCR Not Detected (NotDetected); Parainfluenza Virus 1 PCR Not Detected (NotDetected); Parainfluenza Virus 2 PCR Not Detected (NotDetected); Parainfluenza Virus 3 PCR Not Detected (NotDetected); Parainfluenza Virus 4 PCR Not Detected (NotDetected); Respiratory Syncytial VirusPCR Not Detected (NotDetected)
--- NOTE | 2023-07-20 07:13 | History & Physical Report ---
Date of Service July 20, 2023 Assessment & Plan (1) Sepsis: (2) Acute UTI (urinary tract infection): Plan: Sepsis - Tachycardia and Hypothermic - Given symptoms likely source pneumonia. CXR without signs of pneumonia, but does have an increased oxygen requirement and URI symptoms - UA consistent with UTI and is having urinary symptoms, so urine could also be a source, but less likely given how sick she is - Urine and blood cultures are pending - Plan continue with cefepime, MRSA nares pending if positive will plan to start Linezolid given her BMI - S/p 2L IVF. Hold on further fluids now as her blood pressures are stable, continue to monitor. Goal of MAP>65 Hypothermia - likely secondary to sepsis - TSH wnl - bear hugger - warm all fluids Rhino/Enterovirus - Positive respiratory biofire on admission - flutter valve, incentive spirometry - Duonebs q6 Chronic Venous Stasis - on Bumex prn for LE edma - no prior history of CHF, TTE 08/2021 with EF= 60-65%, no regional wall motion abnormalities - BNP wnl normal limits and no signs of pulmonary edema on CXR - will hold Bumex given hypotension/dehydration Asthma - continue home inhalers - current presentation without signs of asthma exacerbation, but Hypothyroidism - continue levothyroxine HTN - hold ROGELIO-I given hypotension DM2 - well controlled with metformin - last hemoglobin a1c= 6.8 in 03/2023, will repeat with morning labs - SSI; correction factor= HLD - continue atorvastatin Code: Full VTE Prophylaxis: Lovenox 40mg q12 given BMI Diet: Carb consistent (3) Hypothermia: (4) URI (upper respiratory infection): (5) Hypomagnesemia: (6) Dyspnea: (7) Asthma: (8) Hypothyroidism: (9) Hypertension: (10) Diabetes: History of Present Illness Primary Care Provider: Rhona Canales 68 year old female with a past medical history of MS, HTN, hypothyroidism, asthma, DM2 presenting with 2 days of increased dyspnea at home. Notes p roductive cough with chest congestion. Jewell like it was worsening of her asthma. Of note she was recently treated for acute bacterial rhinosinusitis at the end of May with cephalexin and again at the end of June with a 7 day course of doxycycline. Completed doxycycline on 12/27. Has been having increased urinary frequency, denies dysuria, hematuria. Denies any other symptoms; nausea, vomiting, chest pain. No exposures to cold. No recent medication changes. Denies any known sick contacts live at home with and grandchild. Hypothermic and tachycardic in the ED, was started on warmed fluids, bear hugger placed, s/p dose of cefepime. Allergies Allergy/AdvReac Type Severity Reaction Status Date / Time montelukast [From [facility]] Allergy Mild Verified 02/14/22 09:42 codeine AdvReac Mild NAUSEATED Verified 02/14/22 09:42 Home Medications Medication Instructions Recorded Confirmed Type albuterol sulfate 2.5 mg/3 mL 2.5 mg inhalation Q6H PRN 06/25/21 07/20/23 History (0.083 %) solution for nebulization Shortness Of Breath Or Wheezing benazepril 40 mg tablet 40 mg PO DAILY 06/25/21 07/20/23 History levothyroxine 25 mcg tablet 25 mcg PO DAILYBB 06/25/21 07/20/23 History metformin 500 mg tablet 500 mg PO BID17 06/25/21 07/20/23 History omeprazole 20 mg capsule,delayed 20 mg PO DAILY 06/25/21 07/20/23 History release miconazole nitrate 2 % topical 1 applic EXT BID #43 grams 08/03/21 02/14/22 Rx powder (Desenex) diclofenac sodium 1 % topical gel 4 g EXT QID #1 tube 08/07/21 02/14/22 Rx (Voltaren Arthritis Pain) fluticasone propionate 50 2 spray NA DAILY #1 inhaler 08/07/21 07/20/23 Rx mcg/actuation nasal spray,suspension magnesium oxide 400 mg (241.3 mg 400 mg PO DAILY #30 tabs 08/07/21 02/14/22 Rx magnesium) tablet potassium chloride 10 mEq 10 meq PO DAILY #30 tabs 08/07/21 02/14/22 Rx tablet,extended release sennosides 8.6 mg tablet (Senokot) 17.2 mg (2 x 8.6 mg) PO QAM #60 08/07/21 02/14/22 Rx tabs sodium chloride 0.65 % nasal spray 2 spray NA Q1H PRN nasal 08/07/21 02/14/22 Rx aerosol (Saline Mist) congestion #1 btl nystatin 100,000 unit/gram topical 1 applic topical TID 08/15/21 02/14/22 History cream aspirin 81 mg tablet,delayed 81 mg PO QAM #30 tabs 08/16/21 07/20/23 Rx release atorvastatin 40 mg tablet 40 mg PO HS 07/20/23 07/20/23 History bumetanide 0.5 mg tablet 0.5 mg PO UD PRN fluid overload 07/20/23 07/20/23 His tory diclofenac potassium 50 mg tablet 50 mg PO TID PRN Pain 07/20/23 07/20/23 History fluticasone 250 mcg-salmeterol 50 1 inh inhalation BID 07/20/23 07/20/23 History mcg/dose blistr powdr for inhalation ipratropium bromide 21 mcg (0.03 2 spray intranasal BID 07/20/23 07/20/23 History %) nasal spray nystatin 100,000 unit/gram topical See Rx Instructions .Route .COMPLEX 07/20/23 07/20/23 History powder Past Med/Surg History Medical History (Updated 07/20/23 @ 07:35 by Zora Aguayo DO) Morbid obesity Asthma Hypothyroidism Hypertension Left-sided weakness DUNCAN (acute kidney injury) Brain TIA Diabetes Multiple sclerosis UTI (urinary tract infection) Sepsis Acute respiratory failure with hypoxia Osteoarthritis of knees, bilateral Sinusitis, acute Morbid obesity with BMI of 50.0-59.9, adult Tachy-rowena syndrome GERD (gastroesophageal reflux disease) Hypothyroidism Pancreatitis Thrombocytopenia Peripheral edema Septic shock Hypomagnesemia Fungal dermatitis Asthma Hypertension Diabetes Influenza A Pneumonia Multiple sclerosis Surgical History (Updated 02/14/22 @ 10:08 by Heena Waite RN) H/O tubal ligation H/O sinus surgery History of arthroscopic knee surgery Hx of tonsillectomy H/O: hysterectomy No pertinent past surgical history Family History Other Family history non-contributory Social History (Updated 02/14/22 @ 10:07 by Heena Waite RN) Smoking Status: Never smoker Hx Alcohol Use: No (unknown) Hx Substance Use: No (unknown) Preferred Language: Lithuanian Communication Ability: Effective Customer Project Manager Required: No Beliefs That Will Affect Care: None marital status: Current Living Situation: Spouse How many Children do You have: 2 Feels Safe at Home: Yes Diet: gluten free during the past year weight has: decreased > 10 lbs Assistive Devices: Walker Review of Systems Review of Systems: As per above Physical Exam Physical Exam: Constitutional: well-appearing, no acute distress HEENT: NCAT, no conjunctival injection CV: regular rhythm, no murmur appreciated, extremities well-perfused, +1 pitting edema LE B/L Resp: no increased work of breathing, + rhonchi GI: soft, nondistended, nontender MSK: no gross deformities appreciated Skin: warm, dry, no rash appreciated Neuro: alert, oriented, no focal neurologic deficit appreciated Results & Data Results & Data Vital Signs (Past 12 Hours) Vital Signs Temp Pulse Resp BP Pulse Ox O2 Del Method 07/20/23 06:00 34.2 C L 95 H 18 97 07/20/23 05:45 34.0 C L 94 H 21 96 07/20/23 05:38 33.4 C L 07/20/23 05:31 33.5 C L 93 H 18 97 07/20/23 05:31 98/57 L 07/20/23 05:30 33.4 C L 98 H 25 H 98 07/20/23 05:15 94 H 22 93 07/20/23 05:00 96 H 16 95 07/20/23 04:58 34 C L 07/20/23 04:45 94 H 17 93 07/20/23 04:37 95 H 18 95 07/20/23 04:35 97 H 07/20/23 04:31 Room Air 07/20/23 04:31 Room Air 07/20/23 04:31 95 H 20 100/64 93 Room Air Supervising Physician Co-Signing Physician Notes I personally examined the patient and verified all ray points of history and exam, discussed case, and agree with decision making with Dr Zuniga cough congestion shortness of breath. Is feeling better than whenever she fir st came in this morning. Vitals noted, in general she is awake and alert does have a wet thick sounding cough as well as appearance of congestion. Breathing unlabored no accessory muscle use good effort. Skin without rashes pallor or icterus. Appears diffusely fatigued. Labs and diagnostics reviewed. Sepsisapproaching early septic shock on admissionnow stabilizing nicelywhile she does have cystitis symptoms, given that they are fairly mild, and she has rather significant respiratory symptomsshe clinically appears more consistent with a community-acquired pneumonia as the cause of her sepsis even though it does not show up on her x-ray. Antibiotics, follow cultures, supportive care, time. IV fluids have affected better blood pressure numbers. Temperatures come up through the day. DVT prophylaxisLovenox otherwise as above Resident Activity Tracking Resident Involvement: Resident Care Provided Care Provided: Adult Hospital Medicine
[2023-07-20 07:29] LABS: Rhinovirus/Enterovirus PCR DETECTED (NotDetected)
--- NOTE | 2023-07-20 08:00 | XRay Report ---
XR chest 1V portable HISTORY: Shortness of breath. COMPARISON: Chest 07/02/2023. FINDINGS: Slightly rotated study. There are low lung volumes. Left basilar linear densities persist a nd favor subsegmental atelectasis or scarring. No new focal lung consolidations to suggest a pneumoni a. No evidence for pulmonary edema. There are calcifications within the aortic knob. No acute fractur es. IMPRESSION: No significant change compared to the prior study. No acute process. ACT 112: Negative or not required by law. Electronically signed by: Remington Altamirano M.D. 07/20/2023 7:58 AM
[2023-07-20] MEDS ORDERED: POLYETHYLENE (MIRALAX) 17 GM PACK PO PRN (08:18)
[2023-07-20] MEDS ORDERED: LACTATED RINGER'S 1,000 ML IV ONE (08:45)
[2023-07-20] MEDS ORDERED: ENALAPRIL MALEATE 10 MG TAB PO SCH (10:32)
[2023-07-20] MEDS ORDERED: GLUCOSE 10 TAB/TUBE PO PRN (10:41)
[2023-07-20] MEDS ORDERED: GLUCAGON FOR INJ 1 MG VIAL SQ PRN (10:41)
[2023-07-20] MEDS ORDERED: GLUCOSE 40% GEL 15 GM TUBE PO PRN (10:41)
[2023-07-20] MEDS ORDERED: DEXTROSE 50% 50 ML SYRINGE IV PRN (10:41)
[2023-07-20] MEDS ORDERED: CARBOHYDRATES FOR HYPOGLYCEMIA PO PRN (10:41)
[2023-07-20] MEDS: PANTOprazole 40 MG TAB PO SCH (12:38)
[2023-07-20] MEDS: ASPIRIN 81 MG ECTAB PO SCH (12:38)
[2023-07-20] MEDS: FLUTICASONE/VILANTEROL 100/25MCG 14 PUFFS/INHALER INH SCH ×2 (12:39→21:52)
[2023-07-20] MEDS: FLUTICASONE PROPIONATE NA SPR 16 GM BTL SCH (12:40)
[2023-07-20] MEDS: ALBUT/IPRATROP 3MG/0.5MG NEB 3 ML VIAL INH SCH ×2 (13:26→20:16)
[2023-07-20] MEDS ORDERED: ALBUTEROL 0.083% NEBU SOLN 3 ML VIAL ONE (13:39)
[2023-07-20] MEDS: INSULIN ASPART PER UNIT CHARGE SC SCH ×3 (14:30→20:23)
[2023-07-20] MEDS: CEFEPIME 2,000 MG in SYRINGE 0 ML IV SCH (15:29)
--- NOTE | 2023-07-20 18:11 | Billing Data ---
Date of Service July 20, 2023 Coding Level of Care Code 31707 INT INP/OBS CARE
[2023-07-20] MEDS: ENOXAPARIN INJ 40 MG/0.4 ML SYR SQ SCH (20:16)
--- NOTE | 2023-07-21 00:17 | Electrocardiogram Report ---
Test Reason : Blood Pressure : / mmHG Vent. Rate : 099 BPM Atrial Rate : 099 BPM P-R Int : 218 ms QRS Dur : 080 ms QT Int : 356 ms P-R-T Axes : 051 -33 011 degrees QTc Int : 456 ms Sinus rhythm with 1st degree A-V block Left axis deviation Cannot rule out Anterior infarct (cited on or before 15-AUG-2021) Abnormal ECG When compared with ECG of 15-AUG-2021 18:20, MA interval has increased Questionable change in initial forces of Lateral leads Confirmed by Jeff Read ([id number]) on 07/21/2023 12:17:42 AM Referred By: REFERRED SELF Confirmed By:Jeff Read
[2023-07-21] MEDS: ALBUT/IPRATROP 3MG/0.5MG NEB 3 ML VIAL INH SCH ×4 (00:45→19:25)
[2023-07-21] MEDS ORDERED: SODIUM CHLORIDE 0.9% 500 ML IV ONE (04:18)
[2023-07-21] MEDS: CEFEPIME 2,000 MG in SYRINGE 0 ML IV SCH ×2 (04:37→17:17)
[2023-07-21 06:41] LABS: Basophils # (auto) 0.02 K/uL (0.00-0.20); Basophils % (auto) 0.3 %; Eosinophils # (auto) 0.12 K/uL (0.00-0.50); Eosinophils % (auto) 1.6 %; Hematocrit (blood only) 33.2 % (37.0-47.0); Hemoglobin 10.5 g/dl (12.0-16.0); Immature Granulocytes # (auto) 0.03 K/uL (0.01-0.20); Immature Granulocytes % (auto) 0.4 %; Lymphocytes # (auto) 2.08 K/uL (1.20-3.40); Lymphocytes % (auto) 28.5 %; Mean Corpuscular Hemoglobin 31.3 pg (25.0-34.0); Mean Corpuscular Hgb Conc 31.6 g/dL (32.0-36.0); Mean Corpuscular Volume 99.1 fL (80.0-100.0); Mean Platelet Volume 12.8 fL (9.4-12.4); Monocytes % (auto) 9.6 %; Neutrophils # (auto) 4.34 K/uL (1.40-6.50); Neutrophils % (auto) 59.6 %; Platelet Count 124 K/uL (130-400); RDW Coefficient of Variation 16.8 % (11.5-14.5); RDW Standard Deviation 60.9 fL (36.4-46.3); Red Blood Count 3.35 M/uL (4.20-5.40); White Blood Count 7.29 K/ul (4.8-10.8)
[2023-07-21 07:08] LABS: Albumin Globulin Ratio 1.1 (0.9-2); Albumin Level 3.2 gm/dl (3.4-5.0); BUN Creatinine Ratio 32.1 (10-20); Bilirubin,Total 0.4 mg/dl (0.2-1.0); Calcium 9.1 mg/dl (8.6-10.3); Creatinine Clr Calc Pharmacy 46.9 ml/min; Est GFR (African American) 45.5 ml/min; Est GFR (Non-African American) 39.3 ml/min; Globulin 2.9 gm/dl (2.5-4.0); Magnesium 1.8 mg/dl (1.7-2.4); Potassium 4.8 mmol/L (3.5-5.1); Total Protein 6.1 gm/dl (6.0-8.3)
[2023-07-21 07:57] LABS: Estimated Average Glucose 140 mg/dl; Hemoglobin A1C 6.5 % (4.5-5.6)
--- NOTE | 2023-07-21 07:57 | Hospitalist Progress Note ---
Date of Service July 21, 2023 Assessment & Plan (1) Sepsis: (2) Acute UTI (urinary tract infection): Plan: Sepsis - Tachycardia and Hypothermic - Given symptoms likely source pneumonia. CXR without signs of pneumonia, but does have an increased oxygen requirement and URI symptoms - UA consistent with UTI and is having urinary symptoms, so urine could also be a source, but less likely given how sick she is - Urine and blood cultures are pending - Plan continue with cefepime, MRSA nares pending if positive will plan to start Linezolid given her BMI - S/p 2L IVF. Hold on further fluids now as her blood pressures are stable, continue to monitor. Goal of MAP>65 Hypothermia - likely secondary to sepsis - TSH wnl - bear hugger - warm all fluids Rhino/Enterovirus - Positive respiratory biofire on admission - flutter valve, incentive spirometry - Duonebs q6 Chronic Venous Stasis - on Bumex prn for LE edma - no prior history of CHF, TTE 08/2021 with EF= 60-65%, no regional wall motion abnormalities - BNP wnl normal limits and no signs of pulmonary edema on CXR - will hold Bumex given hypotension/dehydration Asthma - continue home inhalers - current presentation without signs of asthma exacerbation, but Hypothyroidism - continue levothyroxine HTN - hold ROGELIO-I given hypotension DM2 - well controlled with metformin - last hemoglobin a1c= 6.8 in 03/2023, will repeat with morning labs - SSI; correction factor= HLD - continue atorvastatin Code: Full VTE Prophylaxis: Lovenox 40mg q12 given BMI Diet: Carb consistent (3) Hypothermia: (4) URI (upper respiratory infection): (5) Hypomagnesemia: (6) Dyspnea: (7) Asthma: (8) Hypothyroidism: (9) Hypertension: (10) Diabetes: Admission and Anticipated Discharge Date Admission Date: July 20, 2023 Results & Data Results & Data Vital Signs (Past 12 Hours) Vital Signs Temp Pulse Pulse Resp BP Pulse Ox O2 Del Method 07/21/23 06:00 94 H 21 98/63 L 97 Nasal Cannula 07/21/23 05:30 88 22 79/47 L 96 Nasal Cannula 07/21/23 05:26 Nasal Cannula 07/21/23 05:26 Nasal Cannula 07/21/23 05:00 90 19 106/64 98 Nasal Cannula 07/21/23 04:30 83 21 112/64 97 Nasal Cannula 07/21/23 04:00 68 18 84/44 L 96 Nasal Cannula 07/21/23 03:30 88 16 89/60 L 97 Nasal Cannula 07/21/23 03:07 94 H 19 89/63 L 90 Nasal Cannula 07/21/23 03:00 92 H 16 73/47 L 90 Nasal Cannula 07/21/23 02:30 94 H 15 71/53 L 91 Nasal Cannula 07/21/23 02:00 100 H 21 82/45 L 94 Nasal Cannula 07/21/23 01:36 98 H 21 81/40 L 96 Nasal Cannula 07/21/23 01:30 95 H 17 71/37 L 98 Nasal Cannula 07/21/23 01:00 91 H 16 81/52 L 95 Nasal Cannula 07/21/23 00:45 100 H 24 90 Nasal Cannula 07/21/23 00:30 99 H 18 112/64 90 Nasal Cannula 07/21/23 00:06 102 H 25 H 116/75 95 Nasal Cannula 07/20/23 23:45 35.8 C L 92 H 16 91/57 L 93 Nasal Cannula 07/20/23 23:30 35.9 C L 91 H 15 104/55 L 93 Nasal Cannula 07/20/23 23:15 35.9 C L 91 H 15 121/62 94 Nasal Cannula 07/20/23 23:02 35.9 C L 92 H 16 73/45 L 93 Nasal Cannula 07/20/23 22:45 35.9 C L 89 18 89/71 L 95 07/20/23 22:30 36.0 C L 89 16 87/50 L 93 07/20/23 22:00 69/42 L 07/20/23 22:00 36.0 C L 93 H 17 92 07/20/23 21:52 102/69 07/20/23 21:52 36.0 C L 102 H 19 92 07/20/23 21:46 80/44 L 07/20/23 21:46 36.0 C L 100 H 17 07/20/23 21:30 99/60 L 07/20/23 21:30 36.0 C L 95 H 16 92 07/20/23 21:20 114/56 L 07/20/23 21:20 36.1 C L 98 H 19 92 07/20/23 21:18 99/62 L 07/20/23 21:18 36.1 C L 104 H 25 H 94 07/20/23 21:17 64/42 L 07/20/23 21:17 36.1 C L 92 H 17 83 L 07/20/23 21:15 72/41 L 07/20/23 21:15 36.1 C L 94 H 18 89 L 07/20/23 21:00 109/51 L 07/20/23 21:00 36.1 C L 102 H 17 90 07/20/23 20:45 111/70 07/20/23 20:45 36.0 C L 102 H 19 92 07/20/23 20:30 101/60 07/20/23 20:30 36.1 C L 105 H 17 93 07/20/23 20:15 129/74 07/20/23 20:15 36.1 C L 102 H 19 93 07/20/23 20:13 36.1 C L 100 H 19 126/72 93 07/20/23 20:00 95 H O2 Flow Rate 07/21/23 06:00 4 07/21/23 05:30 4 07/21/23 05:26 4 07/21/23 05:26 4 07/21/23 05:00 4 07/21/23 04:30 4 07/21/23 04:00 4 07/21/23 03:30 4 07/21/23 03:07 4 07/21/23 03:00 4 07/21/23 02:30 4 07/21/23 02:00 4 07/21/23 01:36 4 07/21/23 01:30 4 07/21/23 01:00 4 07/21/23 00:45 4 07/21/23 00:30 4 07/21/23 00:06 2 07/20/23 23:45 2 07/20/23 23:30 2 07/20/23 23:15 2 07/20/23 23:02 2 07/20/23 22:45 07/20/23 22:30 07/20/23 22:00 07/20/23 22:00 07/20/23 21:52 07/20/23 21:52 07/20/23 21:46 07/20/23 21:46 07/20/23 21:30 07/20/23 21:30 07/20/23 21:20 07/20/23 21:20 07/20/23 21:18 07/20/23 21:18 07/20/23 21:17 07/20/23 21:17 07/20/23 21:15 07/20/23 21:15 07/20/23 21:00 07/20/23 21:00 07/20/23 20:45 07/20/23 20:45 07/20/23 20:30 07/20/23 20:30 07/20/23 20:15 07/20/23 20:15 07/20/23 20:13 07/20/23 20:00
[2023-07-21] MEDS: INSULIN ASPART PER UNIT CHARGE SC SCH ×4 (08:40→20:05)
[2023-07-21] MEDS: FLUTICASONE PROPIONATE NA SPR 16 GM BTL SCH (09:19)
[2023-07-21] MEDS: ENOXAPARIN INJ 40 MG/0.4 ML SYR SQ SCH ×2 (09:20→20:58)
[2023-07-21] MEDS: PANTOprazole 40 MG TAB PO SCH (09:20)
[2023-07-21] MEDS: ATORVASTATIN 40 MG TAB PO SCH (09:20)
[2023-07-21] MEDS: ASPIRIN 81 MG ECTAB PO SCH (09:20)
[2023-07-21] MEDS: FLUTICASONE/VILANTEROL 100/25MCG 14 PUFFS/INHALER INH SCH ×2 (09:21→20:58)
[2023-07-21] MEDS ORDERED: ACETAMINOPHEN 325 MG TAB PO PRN (10:56)
[2023-07-21] MEDS ORDERED: LACTATED RINGER'S 1,000 ML IV SCH (12:45)
--- NOTE | 2023-07-21 14:19 | Medical Student Progress Note ---
Date of Service July 21, 2023 Assessment & Plan (1) Sepsis: (2) Acute UTI (urinary tract infection): (3) URI (upper respiratory infection): (4) Hypothermia: (5) Morbid obesity: (6) Dyspnea: (7) Asthma: (8) Hypothyroidism: (9) Hypertension: (10) Diabetes: (11) Multiple sclerosis: Plan Plan: Sepsis - Tachycardia, hypotensive, hypothermic - Potential source is pneumonia. History of pseudomonas pneumonia in 2021. CXR without signs of pneumonia, but does have an increased oxygen requirement and URI symptoms. Sputum culture ordered. - UA consistent with UTI and is having urinary symptoms, so urine could also be a source, but less likely due to chronic nature of symptom. - Urine and blood cultures are pending. Preliminary urine results show gram negative bacilli. - Plan continue with cefepime, MRSA nares negative. - S/p 2L IVF. Ordered 1 more L of IVF. Goal of MAP>65. Currently at 75. Hypothermia - likely secondary to sepsis - TSH wnl - bear hugger - warm all fluids - temp 35.8 C with morning vitals Rhino/Enterovirus - Positive respiratory biofire on admission - flutter valve, incentive spirometry - Duonebs q6 - Afrin and flonase Chronic Venous Stasis - on Bumex prn for LE edma - no prior history of CHF, TTE 08/2021 with EF= 60-65%, no regional wall motion abnormalities - BNP wnl normal limits and no signs of pulmonary edema on CXR - will hold Bumex given hypotension/dehydration Asthma - continue home inhalers - current presentation without signs of asthma exacerbation, but Hypothyroidism - continue levothyroxine HTN - hold ROGELIO-I given hypotension DM2 - well controlled with metformin - last hemoglobin a1c= 6.5 today, down from 6.8 in 03/2023 - SSI HLD - continue atorvastatin Code: Full VTE Prophylaxis: Lovenox 40mg q12 given BMI Diet: Carb consistent Admission and Anticipated Discharge Date Admission Date: July 20, 2023 Supervising Attestation Attending Physician Supervision Note: I independently interviewed and examined the patient and verified the ray history and physical, reviewed labs and image studies and agree with findings and care plan noted above. cough congestion still present but shortness of breath is improving. has chronic h/o urinary frequency off and on. no acute worsening. Vitals noted, in general she is awake and alert does have a wet thick sounding cough as well as appearance of congestion. Breathing unlabored no accessory muscle use good effort. Lungs - CTA Probable sepsis - no lactate drawn on admission. WBC normal. CXR with no infiltrate. Recent outpatient tx for rhinosinusitis with cefazolin and doxy. Suspect ongoing sinobronchitis as contributing factor. Urine cx is + but with no acute worsening of symptoms. Poor PO intake -cefepime -IVF Dehydration - On bumex prn at home. BUN rise noted. s/p 2L NSS in ED and 500ml overnight. will given one L LR today. Low platelet - follow DVT prophylaxisLovenox Dangelo placed in ED. Assess ambulation and then remove Subjective 68 year old female with a past medical history of MS, HTN, hypothyroidism, asthma, DM2 presents with 2 days of increased dyspnea at home, a productive cough, and chest congestion and increased frequency of urination. No overnight events. She currently denies dyspnea, cough, chest congestion, or increased frequency of urination. She has not had a cough or chest congestion since being administered breathing treatments. She states that increased frequency of urination is normal for her due to an abdominal hernia. She complains of feeling very warm and dry. She does not want to use the bear hugger or any blankets. She denies shivering or chills. She reports drinking plenty of water at home and eating 3 meals per day. Review of Systems Review of Systems: As per HPI Physical Exam Physical Exam: Constitutional: well-appearing, no acute distress HEENT: NCAT, no conjunctival injection CV: regular rhythm, no murmur appreciated, extremities well-perfused, +1 pitting edema LE B/L Resp: no increased work of breathing, + rhonchi GI: soft, nondistended, nontender MSK: no gross deformities appreciated Skin: warm, dry, no rash appreciated Neuro: alert, oriented, no focal neurologic deficit appreciated. CN2-12 intact. 5/5 strength in biceps, triceps, quads, and hamstrings. 2/4 reflexes in biceps, triceps, patellar, and achilles. Normal coordination. Results & Data Vital Signs (Past 12 Hours) Vital Signs Temp Pulse Pulse Resp BP BP Pulse Ox 07/21/23 11:27 07/21/23 11:23 92 H 17 94 07/21/23 10:23 36.3 C L 101 H 18 112/69 95 07/21/23 09:30 95 H 17 92 07/21/23 09:30 150/65 H 07/21/23 09:00 118/79 07/21/23 09:00 100 H 19 90 07/21/23 08:30 144/62 H 07/21/23 08:30 101 H 27 H 89 L 07/21/23 08:10 100 H 07/21/23 08:00 103/63 07/21/23 08:00 101 H 19 90 07/21/23 07:32 146/70 H 07/21/23 07:32 100 H 19 94 07/21/23 07:30 94 H 17 91 07/21/23 07:00 115/64 07/21/23 07:00 97 H 19 91 07/21/23 06:00 94 H 21 98/63 L 97 07/21/23 05:30 88 22 79/47 L 96 07/21/23 05:26 07/21/23 05:26 07/21/23 05:00 90 19 106/64 98 07/21/23 04:30 83 21 112/64 97 07/21/23 04:00 68 18 84/44 L 96 07/21/23 03:30 88 16 89/60 L 97 07/21/23 03:07 94 H 19 89/63 L 90 07/21/23 03:00 92 H 16 73/47 L 90 07/21/23 02:30 94 H 15 71/53 L 91 O2 Del Method O2 Flow Rate FiO2 07/21/23 11:27 Room Air 07/21/23 11:23 Room Air 21 07/21/23 10:23 Nasal Cannula 4 07/21/23 09:30 07/21/23 09:30 07/21/23 09:00 07/21/23 09:00 07/21/23 08:30 07/21/23 08:30 07/21/23 08:10 07/21/23 08:00 07/21/23 08:00 07/21/23 07:32 07/21/23 07:32 07/21/23 07:30 07/21/23 07:00 07/21/23 07:00 Nasal Cannula 4 07/21/23 06:00 Nasal Cannula 4 07/21/23 05:30 Nasal Cannula 4 07/21/23 05:26 Nasal Cannula 4 07/21/23 05:26 Nasal Cannula 4 07/21/23 05:00 Nasal Cannula 4 07/21/23 04:30 Nasal Cannula 4 07/21/23 04:00 Nasal Cannula 4 07/21/23 03:30 Nasal Cannula 4 07/21/23 03:07 Nasal Cannula 4 07/21/23 03:00 Nasal Cannula 4 07/21/23 02:30 Nasal Cannula 4
[2023-07-21] MEDS: LEVOTHYROXINE SODIUM 25 MCG TABLET PO SCH (14:44)
[2023-07-22] MEDS: ALBUT/IPRATROP 3MG/0.5MG NEB 3 ML VIAL INH SCH ×3 (01:13→12:03)
[2023-07-22] MEDS: CEFEPIME 2,000 MG in SYRINGE 0 ML IV SCH (05:39)
[2023-07-22] MEDS: LEVOTHYROXINE SODIUM 25 MCG TABLET PO SCH (06:18)
--- NOTE | 2023-07-22 06:55 | Hospitalist Progress Note ---
Date of Service July 22, 2023 Assessment & Plan (1) Sepsis: (2) Acute UTI (urinary tract infection): (3) Hypothermia: (4) URI (upper respiratory infection): (5) Hypomagnesemia: (6) Dyspnea: (7) Asthma: (8) Hypothyroidism: (9) Hypertension: (10) Diabetes: Plan 68 year old female with a past medical history of MS, HTN, hypothyroidism, asthma, DM2 presents with 2 days of increased dyspnea at home, a productive cough, and chest congestion and increased frequency of urination. Sepsis - Tachycardia, hypotensive, hypothermic - Potential source is pneumonia. History of pseudomonas pneumonia in 2021. CXR without signs of pneumonia, but does have an increased oxygen requirement and URI symptoms. Sputum culture ordered. - UA consistent with UTI and is having urinary symptoms, so urine could also be a source, but less likely due to chronic nature of symptom. - Urine and blood cultures are pending. Preliminary urine results show gram negative bacilli. - Plan continue with cefepime, MRSA nares negative. - S/p 2L IVF. Ordered 1 more L of IVF. Goal of MAP>65. Currently at 75. Hypothermia - likely secondary to sepsis - TSH wnl - bear hugger - warm all fluids - temp 35.8 C with morning vitals Rhino/Enterovirus - Positive respiratory biofire on admission - flutter valve, incentive spirometry - Duonebs q6 - Afrin and flonase Chronic Venous Stasis - on Bumex prn for LE edma - no prior history of CHF, TTE 08/2021 with EF= 60-65%, no regional wall motion abnormalities - BNP wnl normal limits and no signs of pulmonary edema on CXR - will hold Bumex given hypotension/dehydration Asthma - continue home inhalers - current presentation without signs of asthma exacerbation, but Hypothyroidism - continue levothyroxine HTN - hold ROGELIO-I given hypotension DM2 - well controlled with metformin - last hemoglobin a1c= 6.5 today, down from 6.8 in 03/2023 - SSI HLD - continue atorvastatin Code: Full VTE Prophylaxis: Lovenox 40mg q12 given BMI Diet: Carb consistent Admission and Anticipated Discharge Date Admission Date: July 20, 2023 Subjective 68 year old female with a past medical history of MS, HTN, hypothyroidism, asthma, DM2 presents with 2 days of increased dyspnea at home, a productive cough, and chest congestion and increased frequency of urination. No overnight events. She currently denies dyspnea, cough, chest congestion, or increased frequency of urination. She has not had a cough or chest congestion since being administered breathing treatments. She states that increased frequency of urination is normal for her due to an abdominal hernia. She complains of feeling very warm and dry. She does not want to use the bear hugger or any blankets. She denies shivering or chills. She reports drinking plenty of water at home and eating 3 meals per day. Review of Systems Review of Systems: As per above Results & Data Results & Data Vital Signs (Past 12 Hours) Vital Signs Temp Pulse Resp BP Pulse Ox O2 Del Method 07/22/23 02:34 36.5 C 92 H 18 107/61 93 Room Air 07/22/23 01:13 93 H 18 94 Room Air 07/21/23 22:39 36.6 C 98 H 20 121/77 94 Room Air 07/21/23 19:29 103 H 18 92 Room Air 07/21/23 19:28 36.7 C 97 H 18 139/83 94 Nasal Cannula
[2023-07-22] MEDS ORDERED: OXYMETAZOLINE 0.05% 30 ML BTL PRN (07:14)
[2023-07-22 07:33] LABS: Basophils # (auto) 0.02 K/uL (0.00-0.20); Basophils % (auto) 0.3 %; Eosinophils # (auto) 0.18 K/uL (0.00-0.50); Eosinophils % (auto) 2.3 %; Hematocrit (blood only) 31.2 % (37.0-47.0); Hemoglobin 10.5 g/dl (12.0-16.0); Immature Granulocytes # (auto) 0.04 K/uL (0.01-0.20); Immature Granulocytes % (auto) 0.5 %; Lymphocytes # (auto) 2.49 K/uL (1.20-3.40); Lymphocytes % (auto) 32.4 %; Mean Corpuscular Hemoglobin 32.2 pg (25.0-34.0); Mean Corpuscular Hgb Conc 33.7 g/dL (32.0-36.0); Mean Corpuscular Volume 95.7 fL (80.0-100.0); Mean Platelet Volume 12.2 fL (9.4-12.4); Monocytes # (auto) 0.72 K/uL (0.11-0.59); Monocytes % (auto) 9.4 %; Neutrophils # (auto) 4.23 K/uL (1.40-6.50); Neutrophils % (auto) 55.1 %; Platelet Count 123 K/uL (130-400); RDW Coefficient of Variation 16.7 % (11.5-14.5); RDW Standard Deviation 58.6 fL (36.4-46.3); Red Blood Count 3.26 M/uL (4.20-5.40); White Blood Count 7.68 K/ul (4.8-10.8)
[2023-07-22 07:56] LABS: Alanine Aminotransferase 31 U/L (7-52); Albumin Level 3.2 gm/dl (3.4-5.0); Alkaline Phosphatase 69 U/L (34-104); Anion Gap 6 (3-11); Bilirubin,Total 0.4 mg/dl (0.2-1.0); Blood Urea Nitrogen 25 mg/dl (6-23); Calcium 9.6 mg/dl (8.6-10.3); Carbon Dioxide 23 mmol/L (21-32); Chloride 113 mmol/L (98-107); Creatinine Clr Calc Pharmacy 61.3 ml/min; Est GFR (African American) 66.6 ml/min; Est GFR (Non-African American) 57.4 ml/min; Globulin 3.1 gm/dl (2.5-4.0); Glucose 97 mg/dl (70-99(Fasting)); Sodium 142 mmol/L (136-145); Total Protein 6.3 gm/dl (6.0-8.3)
[2023-07-22 08:49] LABS: Potassium 4.4 mmol/L (3.5-5.1)
[2023-07-22] MEDS: INSULIN ASPART PER UNIT CHARGE SC SCH ×3 (09:10→17:42)
[2023-07-22] MEDS: ENOXAPARIN INJ 40 MG/0.4 ML SYR SQ SCH (09:10)
[2023-07-22] MEDS: PANTOprazole 40 MG TAB PO SCH (09:11)
[2023-07-22] MEDS: ASPIRIN 81 MG ECTAB PO SCH (09:11)
[2023-07-22] MEDS: ATORVASTATIN 40 MG TAB PO SCH (09:11)
[2023-07-22] MEDS: FLUTICASONE PROPIONATE NA SPR 16 GM BTL SCH (09:12)
[2023-07-22] MEDS: FLUTICASONE/VILANTEROL 100/25MCG 14 PUFFS/INHALER INH SCH (09:12)
--- NOTE | 2023-07-22 16:22 | Discharge Summary ---
Date of Service July 22, 2023 Admission HPI Per Admitting Provider 68 year old female with a past medical history of MS, HTN, hypothyroidism, asthma, DM2 presenting with 2 days of increased dyspnea at home. Notes productive cough with chest congestion. [place] like it was worsening of her asthma. Of note she was recently treated for acute bacterial rhinosinusitis at the end of May with cephalexin and again at the end of June with a 7 day course of doxycycline. Completed doxycycline on 07/09. Has been having increased urinary frequency, denies dysuria, hematuria. Denies any other symptoms; nausea, vomiting, chest pain. No exposures to cold. No recent medication changes. Denies any known sick contacts live at home with and grandchild. Hypothermic and tachycardic in the ED, was started on warmed fluids, bear hugger placed, s/p dose of cefepime. Admission Exam Per Admitting Provider Constitutional: well-appearing, no acute distress HEENT: NCAT, no conjunctival injection CV: regular rhythm, no murmur appreciated, extremities well-perfused, +1 pitting edema LE B/L Resp: no increased work of breathing, + rhonchi GI: soft, nondistended, nontender MSK: no gross deformities appreciated Skin: warm, dry, no rash appreciated Neuro: alert, oriented, no focal neurologic deficit appreciated Principal Diagnosis UTI Rhinovirus Discharge Exam Constitutional WD/WN, vitals as above Respiratory normal respiratory effort, lungs clear to auscultation Cardiovascular RRR, no murmur, no edema Gastrointestinal (Abdomen) normal bowel sounds, soft, nontender, no hepatosplenomegaly Skin no rashes, warm and dry Discharge Data Allergies Allergy/AdvReac Type Severity Reaction Status Date / Time montelukast [From Singulair] Allergy Mild Verified 02/14/22 09:42 codeine AdvReac Mild NAUSEATED Verified 02/14/22 09:42 Consultations 07/20/23 07:12 ED Decision to Admit Stat Ordered Studies Microbiology 07/20/23 04:46 Urine,Clean Catch Urine Culture - Final Klebsiella pneumoniae 07/20/23 07:41 Blood Aerobic Blood Culture - Preliminary No growth in Aerobic bottle after 48 hours. 07/20/23 07:41 Blood Anaerobic Blood Culture - Preliminary No growth in Anaerobic bottle after 48 hours. 07/20/23 07:41 Blood Aerobic Blood Culture - Preliminary No growth in Aerobic bottle after 48 hours. 07/20/23 07:41 Blood Anaerobic Blood Culture - Final Labs 07/20/23 07/20/23 07/20/23 04:46 12:09 17:40 WBC 8.33 RBC 3.75 L Hgb 11.7 L Hct 36.5 L MCV 97.3 MCH 31.2 MCHC 32.1 RDW Std Deviation 57.8 H RDW Coeff of Kaia 16.2 H Plt Count 150 MPV 12.7 H Immature Gran % (Auto) 0.6 Neut % (Auto) 64.6 Lymph % (Auto) 26.1 [place] % (Auto) 6.6 Eos % (Auto) 1.9 Baso % (Auto) 0.2 Neut # (Auto) 5.38 Lymph # (Auto) 2.17 [place] # (Auto) 0.55 Eos # (Auto) 0.16 Baso # (Auto) 0.02 Immature Gran # (Auto) 0.05 PT 11.1 INR 1.0 Sodium 143 Potassium 4.6 Chloride 113 H Carbon Dioxide 19 L Anion Gap 11 BUN 56 H Creatinine 1.18 Est Cr Clr Drug Dosing 54.4 Est GFR ( Amer) 54.5 Est GFR (Non-Af Amer) 47.0 BUN/Creatinine Ratio 47.5 H Glucose 141 H POC Glucose 88 Estimat Average Glucose Hemoglobin A1c Calcium 9.7 Magnesium 1.4 L Total Bilirubin 0.2 AST 39 ALT 37 Alkaline Phosphatase 110 H Troponin I High Sens 4.0 B-Natriuretic Peptide 26 Total Protein 6.6 Albumin 3.6 Globulin 3.0 Albumin/Globulin Ratio 1.2 Lipase 81 Procalcitonin < 0.05 TSH 4.084 Urine Color Dark Yellow Urine Appearance Cloudy A Urine pH 5.0 Ur Specific [place] 1.019 Urine Protein Negative Urine Glucose (UA) Negative Urine Ketones Trace H Urine Blood Negative Urine Nitrite Negative Urine Bilirubin Negative Urine Urobilinogen Negative Ur Leukocyte Esterase 2+ H Urine WBC (Auto) >30 H Urine RBC (Auto) 0-4 U Hyaline Cast (Auto) 5-10 H U Epithel Cells (Auto) 10-20 H Urine Bacteria (Auto) 4+ H Nasal Screen MRSA (PCR) Negative Adenovirus (PCR) Not Detected B. pertussis DNA (PCR) Not Detected B.parapertussis DNA PCR Not Detected C. pneumoniae DNA (PCR) Not Detected Coronavirus OC43 (PCR) Not Detected Coronavirus HKU1 (PCR) Not Detected Coronavirus 229E (PCR) Not Detected SARS-CoV-2 (PCR) Not Detected Coronavirus NL63 (PCR) Not Detected Human Metapneumovir PCR Not Detected Influenza Type A (PCR) Not Detected Influenza Type B (PCR) Not Detected M. pneumoniae (PCR) Not Detected Parainfluenza 1 (PCR) Not Detected Parainfluenza 2 (PCR) Not Detected Parainfluenza 3 (PCR) Not Detected Parainfluenza 4 (PCR) Not Detected RSV (PCR) Not Detected Entero/Rhino (PCR) DETECTED A* 07/20/23 07/20/23 07/20/23 18:06 20:15 22:03 WBC RBC Hgb Hct MCV MCH MCHC RDW Std Deviation RDW Coeff of Kaia Plt Count MPV Immature Gran % (Auto) Neut % (Auto) Lymph % (Auto) [place] % (Auto) Eos % (Auto) Baso % (Auto) Neut # (Auto) Lymph # (Auto) [place] # (Auto) Eos # (Auto) Baso # (Auto) Immature Gran # (Auto) PT INR Sodium Potassium Chloride Carbon Dioxide Anion Gap BUN Creatinine Est Cr Clr Drug Dosing Est GFR ( Amer) Est GFR (Non-Af Amer) BUN/Creatinine Ratio Glucose POC Glucose 102 H 96 92 Estimat Average Glucose Hemoglobin A1c Calcium Magnesium Total Bilirubin AST ALT Alkaline Phosphatase Troponin I High Sens B-Natriuretic Peptide Total Protein Albumin Globulin Albumin/Globulin Ratio Lipase Procalcitonin TSH Urine Color Urine Appearance Urine pH Ur Specific [place] Urine Protein Urine Glucose (UA) Urine Ketones Urine Blood Urine Nitrite Urine Bilirubin Urine Urobilinogen Ur Leukocyte Esterase Urine WBC (Auto) Urine RBC (Auto) U Hyaline Cast (Auto) U Epithel Cells (Auto) Urine Bacteria (Auto) Nasal Screen MRSA (PCR) Adenovirus (PCR) B. pertussis DNA (PCR) B.parapertussis DNA PCR C. pneumoniae DNA (PCR) Coronavirus OC43 (PCR) Coronavirus HKU1 (PCR) Coronavirus 229E (PCR) SARS-CoV-2 (PCR) Coronavirus NL63 (PCR) Human Metapneumovir PCR Influenza Type A (PCR) Influenza Type B (PCR) M. pneumoniae (PCR) Parainfluenza 1 (PCR) Parainfluenza 2 (PCR) Parainfluenza 3 (PCR) Parainfluenza 4 (PCR) RSV (PCR) Entero/Rhino (PCR) 07/21/23 07/21/23 07/21/23 06:06 08:37 11:38 WBC 7.29 RBC 3.35 L Hgb 10.5 L Hct 33.2 L MCV 99.1 MCH 31.3 MCHC 31.6 L RDW Std Deviation 60.9 H RDW Coeff of Kaia 16.8 H Plt Count 124 L MPV 12.8 H Immature Gran % (Auto) 0.4 Neut % (Auto) 59.6 Lymph % (Auto) 28.5 [place] % (Auto) 9.6 Eos % (Auto) 1.6 Baso % (Auto) 0.3 Neut # (Auto) 4.34 Lymph # (Auto) 2.08 [place] # (Auto) 0.70 H Eos # (Auto) 0.12 Baso # (Auto) 0.02 Immature Gran # (Auto) 0.03 PT INR Sodium 144 Potassium 4.8 Chloride 117 H Carbon Dioxide 20 L Anion Gap 7 BUN 44 H Creatinine 1.37 H Est Cr Clr Drug Dosing 46.9 Est GFR ( Amer) 45.5 Est GFR (Non-Af Amer) 39.3 BUN/Creatinine Ratio 32.1 H Glucose 87 POC Glucose 99 112 H Estimat Average Glucose 140 Hemoglobin A1c 6.5 H Calcium 9.1 Magnesium 1.8 Total Bilirubin 0.4 AST 34 ALT 30 Alkaline Phosphatase 71 Troponin I High Sens B-Natriuretic Peptide Total Protein 6.1 Albumin 3.2 L Globulin 2.9 Albumin/Globulin Ratio 1.1 Lipase Procalcitonin TSH Urine Color Urine Appearance Urine pH Ur Specific [place] Urine Protein Urine Glucose (UA) Urine Ketones Urine Blood Urine Nitrite Urine Bilirubin Urine Urobilinogen Ur Leukocyte Esterase Urine WBC (Auto) Urine RBC (Auto) U Hyaline Cast (Auto) U Epithel Cells (Auto) Urine Bacteria (Auto) Nasal Screen MRSA (PCR) Adenovirus (PCR) B. pertussis DNA (PCR) B.parapertussis DNA PCR C. pneumoniae DNA (PCR) Coronavirus OC43 (PCR) Coronavirus HKU1 (PCR) Coronavirus 229E (PCR) SARS-CoV-2 (PCR) Coronavirus NL63 (PCR) Human Metapneumovir PCR Influenza Type A (PCR) Influenza Type B (PCR) M. pneumoniae (PCR) Parainfluenza 1 (PCR) Parainfluenza 2 (PCR) Parainfluenza 3 (PCR) Parainfluenza 4 (PCR) RSV (PCR) Entero/Rhino (PCR) 07/21/23 07/21/23 07/22/23 16:38 20:01 07:04 WBC 7.68 RBC 3.26 L Hgb 10.5 L Hct 31.2 L MCV 95.7 MCH 32.2 MCHC 33.7 RDW Std Deviation 58.6 H RDW Coeff of Kaia 16.7 H Plt Count 123 L MPV 12.2 Immature Gran % (Auto) 0.5 Neut % (Auto) 55.1 Lymph % (Auto) 32.4 [place] % (Auto) 9.4 Eos % (Auto) 2.3 Baso % (Auto) 0.3 Neut # (Auto) 4.23 Lymph # (Auto) 2.49 [place] # (Auto) 0.72 H Eos # (Auto) 0.18 Baso # (Auto) 0.02 Immature Gran # (Auto) 0.04 PT INR Sodium 142 Potassium TNP Chloride 113 H Carbon Dioxide 23 Anion Gap 6 BUN 25 H Creatinine 1.00 D Est Cr Clr Drug Dosing 61.3 Est GFR ( Amer) 66.6 Est GFR (Non-Af Amer) 57.4 BUN/Creatinine Ratio 25.0 H Glucose 97 POC Glucose 92 111 H Estimat Average Glucose Hemoglobin A1c Calcium 9.6 Magnesium Total Bilirubin 0.4 AST TNP ALT 31 Alkaline Phosphatase 69 Troponin I High Sens B-Natriuretic Peptide Total Protein 6.3 Albumin 3.2 L Globulin 3.1 Albumin/Globulin Ratio 1.0 Lipase Procalcitonin TSH Urine Color Urine Appearance Urine pH Ur Specific [place] Urine Protein Urine Glucose (UA) Urine Ketones Urine Blood Urine Nitrite Urine Bilirubin Urine Urobilinogen Ur Leukocyte Esterase Urine WBC (Auto) Urine RBC (Auto) U Hyaline Cast (Auto) U Epithel Cells (Auto) Urine Bacteria (Auto) Nasal Screen MRSA (PCR) Adenovirus (PCR) B. pertussis DNA (PCR) B.parapertussis DNA PCR C. pneumoniae DNA (PCR) Coronavirus OC43 (PCR) Coronavirus HKU1 (PCR) Coronavirus 229E (PCR) SARS-CoV-2 (PCR) Coronavirus NL63 (PCR) Human Metapneumovir PCR Influenza Type A (PCR) Influenza Type B (PCR) M. pneumoniae (PCR) Parainfluenza 1 (PCR) Parainfluenza 2 (PCR) Parainfluenza 3 (PCR) Parainfluenza 4 (PCR) RSV (PCR) Entero/Rhino (PCR) 07/22/23 07/22/23 07/22/23 07:30 08:18 11:08 WBC RBC Hgb Hct MCV MCH MCHC RDW Std Deviation RDW Coeff of Kaia Plt Count MPV Immature Gran % (Auto) Neut % (Auto) Lymph % (Auto) [place] % (Auto) Eos % (Auto) Baso % (Auto) Neut # (Auto) Lymph # (Auto) [place] # (Auto) Eos # (Auto) Baso # (Auto) Immature Gran # (Auto) PT INR Sodium Potassium 4.4 Chloride Carbon Dioxide Anion Gap BUN Creatinine Est Cr Clr Drug Dosing Est GFR ( Amer) Est GFR (Non-Af Amer) BUN/Creatinine Ratio Glucose POC Glucose 93 133 H Estimat Average Glucose Hemoglobin A1c Calcium Magnesium Total Bilirubin AST 35 ALT Alkaline Phosphatase Troponin I High Sens B-Natriuretic Peptide Total Protein Albumin Globulin Albumin/Globulin Ratio Lipase Procalcitonin TSH Urine Color Urine Appearance Urine pH Ur Specific [place] Urine Protein Urine Glucose (UA) Urine Ketones Urine Blood Urine Nitrite Urine Bilirubin Urine Urobilinogen Ur Leukocyte Esterase Urine WBC (Auto) Urine RBC (Auto) U Hyaline Cast (Auto) U Epithel Cells (Auto) Urine Bacteria (Auto) Nasal Screen MRSA (PCR) Adenovirus (PCR) B. pertussis DNA (PCR) B.parapertussis DNA PCR C. pneumoniae DNA (PCR) Coronavirus OC43 (PCR) Coronavirus HKU1 (PCR) Coronavirus 229E (PCR) SARS-CoV-2 (PCR) Coronavirus NL63 (PCR) Human Metapneumovir PCR Influenza Type A (PCR) Influenza Type B (PCR) M. pneumoniae (PCR) Parainfluenza 1 (PCR) Parainfluenza 2 (PCR) Parainfluenza 3 (PCR) Parainfluenza 4 (PCR) RSV (PCR) Entero/Rhino (PCR) 07/22/23 16:18 WBC RBC Hgb Hct MCV MCH MCHC RDW Std Deviation RDW Coeff of Kaia Plt Count MPV Immature Gran % (Auto) Neut % (Auto) Lymph % (Auto) [place] % (Auto) Eos % (Auto) Baso % (Auto) Neut # (Auto) Lymph # (Auto) [place] # (Auto) Eos # (Auto) Baso # (Auto) Immature Gran # (Auto) PT INR Sodium Potassium Chloride Carbon Dioxide Anion Gap BUN Creatinine Est Cr Clr Drug Dosing Est GFR ( Amer) Est GFR (Non-Af Amer) BUN/Creatinine Ratio Glucose POC Glucose 127 H Estimat Average Glucose Hemoglobin A1c Calcium Magnesium Total Bilirubin AST ALT Alkaline Phosphatase Troponin I High Sens B-Natriuretic Peptide Total Protein Albumin Globulin Albumin/Globulin Ratio Lipase Procalcitonin TSH Urine Color Urine Appearance Urine pH Ur Specific [place] Urine Protein Urine Glucose (UA) Urine Ketones Urine Blood Urine Nitrite Urine Bilirubin Urine Urobilinogen Ur Leukocyte Esterase Urine WBC (Auto) Urine RBC (Auto) U Hyaline Cast (Auto) U Epithel Cells (Auto) Urine Bacteria (Auto) Nasal Screen MRSA (PCR) Adenovirus (PCR) B. pertussis DNA (PCR) B.parapertussis DNA PCR C. pneumoniae DNA (PCR) Coronavirus OC43 (PCR) Coronavirus HKU1 (PCR) Coronavirus 229E (PCR) SARS-CoV-2 (PCR) Coronavirus NL63 (PCR) Human Metapneumovir PCR Influenza Type A (PCR) Influenza Type B (PCR) M. pneumoniae (PCR) Parainfluenza 1 (PCR) Parainfluenza 2 (PCR) Parainfluenza 3 (PCR) Parainfluenza 4 (PCR) RSV (PCR) Entero/Rhino (PCR) Chest X-Ray 07/20/23 04:32 XR chest 1V portable HISTORY: Shortness of breath. COMPARISON: Chest 07/02/2023. FINDINGS: Slightly rotated study. There are low lung volumes. Left basilar linear densities persist and favor subsegmental atelectasis or scarring. No new focal lung consolidations to suggest a pneumonia. No evidence for pulmonary edema. There are calcifications within the aortic knob. No acute fractures. IMPRESSION: No significant change compared to the prior study. No acute process. ACT 112: Negative or not required by law. Electronically signed by: Remington Altamirano M.D. 07/20/2023 7:58 AM Hospital Course (1) Acute UTI (urinary tract infection): (2) Morbid obesity: (3) URI (upper respiratory infection): (4) Hypothyroidism: (5) Hypertension: (6) Diabetes: (7) Multiple sclerosis: (8) UTI (urinary tract infection): (9) Dyspnea: (10) Hypomagnesemia: Plan 68 year old female with a past medical history of MS, HTN, hypothyroidism, asthma, DM2 presents with 2 days of increased dyspnea at home, a productive cough, and chest congestion and increased frequency of urination. Sepsis - Tachycardia, hypotensive, hypothermic - UA consistent with UTI and urinary symptoms - Urine culture + for klebsiella. Treated with Cefepime switch to Augmentin on discharge - IVF fluids Rhino/Enterovirus - Positive respiratory biofire on admission -WBC normal. CXR with no infiltrate. Recent outpatient tx for rhinosinusitis with cefazolin and doxy. - Could have contributed to sepsis status, Blood culture negative - cough congestion and shortness of breath improving on discharge Chronic Venous Stasis - on Bumex Asthma - continue home inhalers Hypothyroidism - continue levothyroxine HTN -continue ROGELIO-I DM2 -Continue metfomin HLD - continue atorvastatin Total Time Total Time Spent Total Time Spent (In Minutes): see attending attestation Discharge Plan Discharge Items Patient Disposition: Home - Self-Care Reason For Visit: UTI Discharge Diagnosis: UTI Activity: Resume your previous activity Non-emergency contact: Primary Care Provider Call non-emergency contact if: you have any medication questions, your symptoms worsen, your pain is unusual for you and your temperature is above 101 Follow-up/Referrals: Rhona Canales [Primary Care Provider] - Diet: Regular Addtl Attending Provider Instructions: You were admitted to the hospital due to dyspnea and increase oxygen requirement. You were found with rhinovirus and an UTI. Because of this acute infection your body had an a exaggerated response called sepsis. We treat you with broad spectrum antibiotic. At the same time you had a upper respiratory infection with a virus call rhinovirus. You are going home with an Antibiotic called Augmentin 875/125 mg, take 1 tab twice a day for 5 days, this was sent to your pharmacy Follow-up appointments: Make a follow-up appointment with your PCP within the next week. It is very important that you follow up with them shortly after discharge from the hospital. Medications: Your medication list has been reviewed and reconciled upon discharge to ensure accuracy and continuity of care. An updated list of all your medications is included with your hospital discharge paperwork. Please review this list closely, and make note of any changes. Take your medications as instructed; do not skip a dose of your medicines. Make sure all of your doctors know every medicine you are taking (including [id number] medicines, vitamins, and supplements). Call your primary care provider before taking any new medicines (including [id number] medicines, vitamins, and supplements), because some of these may interact with your current medications, or may make your symptoms worse. Tell your primary care provider if you cannot afford your medications. CONTACT YOUR PRIMARY CARE PROVIDER if you experience any of the following: Difficulty following your treatment plan, or difficulty taking medications CALL 911 OR GO TO THE EMERGENCY DEPARTMENT if you experience any of the following: Sudden, severe abdominal pain or nausea/vomiting Severe chest pain, or chest pain that radiates (moves) to your jaw or arm Sudden, severe shortness of breath or difficulty breathing Thank you for allowing us to participate in your care. Pending Studies at Discharge: No Stand-Alone Forms: [facility], Smoking Cessation Medications and DC Order Prescriptions: New amoxicillin-pot clavulanate 875-125 mg tablet 1 tab PO BID 5 Days Qty: 10 0RF Continued metformin 500 mg tablet 500 mg PO BID17 levothyroxine 25 mcg tablet 25 mcg PO DAILYBB omeprazole 20 mg capsule,delayed release(DR/EC) 20 mg PO DAILY benazepril 40 mg tablet 40 mg PO DAILY albuterol sulfate 2.5 mg /3 mL (0.083 %) solution for nebulization 2.5 mg inhalation Q6H PRN (Reason: Shortness Of Breath Or Wheezing) Rx Instructions: filled jul 2022 miconazole nitrate [Desenex] 2 % Powder 1 applic EXT BID Qty: 43 0RF Rx Instructions: APPLY TO ABD FOLDS FOR EXCORIATION sennosides [Senokot] 8.6 mg Tablet 17.2 mg PO QAM Qty: 60 0RF fluticasone propionate 50 mcg/actuation [place],Suspension 2 spray NA DAILY Qty: 1 2RF Saline Mist 0.65 % Aerosol,[place] 2 spray NA Q1H PRN (Reason: nasal congestion) Qty: 1 0RF diclofenac sodium [Voltaren Arthritis Pain] 1 % Gel 4 g EXT QID Qty: 1 2RF Rx Instructions: apply to either knee up to 4 times each day potassium chloride 10 mEq tablet extended release 10 meq PO DAILY Qty: 30 2RF magnesium oxide 400 mg (241.3 mg magnesium) tablet 400 mg PO DAILY Qty: 30 2RF nystatin 100,000 unit/gram Cream 1 applic TOPICAL TID Rx Instructions: APPLY TO BUTTOCKS/TOMMY AREA aspirin 81 mg Tablet,Delayed Release (Dr/Ec) 81 mg PO QAM Qty: 30 0RF atorvastatin 40 mg tablet 40 mg PO HS fluticasone propion-salmeterol 250-50 mcg/dose blister with device 1 inh INHALATION BID diclofenac potassium 50 mg tablet 50 mg PO TID PRN (Reason: Pain) nystatin 100,000 unit/gram powder See Rx Instructions .ROUTE .COMPLEX Rx Instructions: APPLY SPARING TO AREA UNDER BREASTS TWICE DAILY bumetanide 0.5 mg tablet 0.5 mg PO UD PRN (Reason: fluid overload ) Rx Instructions: TAKE 1 TABLET BY MOUTH EVERY DAY, WITH 2ND DOSE IN EVENING DIRECTED FOR FLUID OVERLOAD ipratropium bromide 21 mcg (0.03 %) spray,non-aerosol 2 spray INTRANASAL BID Discharge Orders: Discharge Order (Routine); Ordered 07/22/23 Ordered By: Aramis Christianson/Other Patient Handouts: Managing Type 2 Diabetes, 5 Steps for Eating Healthier Admission Data Admit Date/Time: 07/20/23 07:15 Attending Provider: Bruna Thomas Admit Provider: Shruthi Zuniga Primary Care Provider: Rhona Canales Other Providers: Armando Brush Other Interventions: Discharge Summary Assessment (RN) Last Done: 07/22/23 17:01 Supervising Physician Co-Signing Physician Notes Attending Physician Supervision Note: I independently interviewed and examined the patient and verified the ray history and physical, reviewed labs and image studies and agree with findings and care plan noted above. cough congestion and shortness of breath improving. has chronic h/o urinary frequency off and on. no acute worsening. Vitals noted, in general she is awake and alert. Breathing unlabored no accessory muscle use good effort. Lungs - CTA Probable sepsis - no lactate drawn on admission. WBC normal. CXR with no infiltrate. Recent outpatient tx for rhinosinusitis with cefazolin and doxy. Suspect ongoing sinobronchitis as contributing factor. Poor PO intake d/t extended sinobronchitis and ambulatory dysfunction. Urine cx is + Klebsiella. -received cefepime and IVF resuscitation. switched to augmentin on discharge. Low platelet - stable on discharge Chronic ambulatory dysfunction - MS, morbid obesity, large ventral hernia. at baseline on discharge. uses assistive device at home. Dangelo placed in ED due to ambulatory dysfunction and I and O monitoring. d/luis on discharge
[2023-07-22] MEDS ORDERED: AMOXICILLIN/CLAVULANATE 875 MG TAB PO ONE (16:23)
[2023-07-22] MEDS ORDERED: AMOXICILLIN/CLAVULANATE 875 MG TAB PO SCH (17:00)
== END 2023-07-22 18:15 | disposition home or self-care (01) | DRG 871 ==
LOC: ED 04:17 → EDINP 07:15 → SUATTDRO 07:15 → 2S 10:33

== ENCOUNTER 2023-07-26 09:02 | Observation (INO) ==
--- NOTE | 2023-07-26 09:29 | Emergency Department Note ---
ED Provider Note History of Present Illness Chief Complaint: Shortness of Breath/Dyspnea Stated Complaint: SOB Time Seen by Provider: 07/26/23 09:28 This is a 68-year-old female with a history of diabetes, multiple sclerosis, hypomagnesemia, obesity, asthma, recurrent sinusitis, recently discharged from this hospital 4 days ago secondary to a UTI, possible sepsis, rhinovirus infection who presents to the emergency department via EMS for increasing productive cough and having "the shakes" this morning. Patient was given a DuoNeb treatment via EMS and patient states this calmed her cough down to some extent. Patient also states that she feels extremely weak overall and she is having a difficult time standing up and pivoting to her commode. Normally she is able to do this at baseline. She feels like she is going to fall anytime she tries to stand up. Patient also describes some pain in her vaginal area. When the patient was discharged, she was given Augmentin for her UTI and she believes that she is still taking this medication. She continues with some dysuria. States that she often has a chronic cough and states that it is more productive than normal. She does not feel like she is more short of breath than normal, does not have any chest pain. Has not had any fevers. No abdominal pain, nausea, or vomiting. No recent fevers Lives at home with her Home Medications Medication Instructions Recorded Confirmed Type benazepril 40 mg tablet 40 mg PO QAM 06/25/21 07/26/23 History levothyroxine 25 mcg tablet 25 mcg PO DAILYBB 06/25/21 07/26/23 History metformin 500 mg tablet 500 mg PO BID 06/25/21 07/26/23 History omeprazole 20 mg capsule,delayed 20 mg PO PM 06/25/21 07/26/23 History release aspirin 81 mg tablet,delayed 81 mg PO QAM #30 tabs 08/16/21 07/26/23 Rx release atorvastatin 40 mg tablet 40 mg PO HS 07/20/23 07/26/23 History bumetanide 0.5 mg tablet 0.5 mg PO UD PRN fluid overload 07/20/23 07/26/23 History fluticasone 250 mcg-salmeterol 50 0 inh inhalation BID 07/20/23 07/26/23 History mcg/dose blistr powdr for inhalation amoxicillin 875 mg-potassium 0 tab PO BID 07/26/23 07/26/23 History clavulanate 125 mg tablet cholecalciferol (vitamin D3) 125 5,000 unit PO QAM 07/26/23 07/26/23 History mcg (5,000 unit) tablet diclofenac potassium 50 mg tablet 0 mg PO HS 07/26/23 07/26/23 History docusate sodium 100 mg capsule 100 mg PO PM 07/26/23 07/26/23 History iron-vitamin B complex with C 27 0 tab PO PM 07/26/23 07/26/23 History mg-300 mg tablet qxeidjhafvoh-yctkzvqd-fzldxbz-folic 1 tab PO QAM 07/26/23 07/26/23 History acid 400 mcg-vit K1 20 mcg tablet (Women's 50 Plus Advanced) potassium chloride 10 mEq 0 meq PO PM 07/26/23 07/26/23 History tablet,extended release turmeric 400 mg capsule 0 mg PO QAM 07/26/23 07/26/23 History Allergies Allergy/AdvReac Type Severity Reaction Status Date / Time montelukast [From Singulair] Allergy Mild Verified 07/26/23 12:20 codeine AdvReac Mild NAUSEATED Verified 07/26/23 12:20 Past Med/Surg History Medical History Morbid obesity Asthma Hypothyroidism Hypertension Left-sided weakness DUNCAN (acute kidney injury) Brain TIA Diabetes Multiple sclerosis UTI (urinary tract infection) Sepsis Acute respiratory failure with hypoxia Osteoarthritis of knees, bilateral Sinusitis, acute Morbid obesity with BMI of 50.0-59.9, adult Tachy-rowena syndrome GERD (gastroesophageal reflux disease) Hypothyroidism Pancreatitis Thrombocytopenia Peripheral edema Septic shock Hypomagnesemia Fungal dermatitis Asthma Hypertension Diabetes Influenza A Pneumonia Multiple sclerosis Surgical History H/O tubal ligation H/O sinus surgery History of arthroscopic knee surgery Hx of tonsillectomy H/O: hysterectomy No pertinent past surgical history Family History Other Family history non-contributory Social History Smoking Status: Former smoker Second Hand Exposure: No; Do You Dip or Chew Tobacco: No; Hx Alcohol Use: No Hx Substance Use: No Preferred Language: Zimbabwean Communication Ability: Effective Recreation Program Specialist Required: No Beliefs That Will Affect Care: None marital status: Current Living Situation: Spouse How many Children do You have: 2 Feels Safe at Home: Yes Diet: gluten free during the past year weight has: decreased > 10 lbs Assistive Devices: Nebulizer, Walker and Wheelchair Physical Exam Vital Signs Vital Signs - 24 hr 07/26/23 09:10 07/26/23 09:10 07/26/23 09:38 Temperature Source Pulse Rate 91 H 84 Pulse Rate [Right Finger] Respiratory Rate 26 H Respiratory Effort / Characteristics Labored Respiratory Depth Blood Pressure 118/84 Blood Pressure [Right Arm] Blood Pressure Mean 95 Blood Pressure Mean [Right Arm] Pulse Oximetry 100 Oxygen Delivery Method Room Air Sepsis Recent Fever Within 48 Hours No Sepsis New/Unexplained Change in Mental Status No Sepsis Action Taken by Nursing No Action Required 07/26/23 09:55 07/26/23 10:35 07/26/23 11:16 Temperature Source Oral Pulse Rate Pulse Rate [Right Finger] 86 Respiratory Rate 16 Respiratory Effort / Characteristics Non-Labored Spontaneous Non-Labored Respiratory Depth Normal Blood Pressure Blood Pressure [Right Arm] 128/44 L Blood Pressure Mean Blood Pressure Mean [Right Arm] 72 Pulse Oximetry 100 99 Oxygen Delivery Method Room Air Room Air Sepsis Recent Fever Within 48 Hours Sepsis New/Unexplained Change in Mental Status Sepsis Action Taken by Nursing 07/26/23 11:19 07/26/23 13:14 07/26/23 13:30 Temperature Source Pulse Rate Pulse Rate [Right Finger] 69 Respiratory Rate 18 Respiratory Effort / Characteristics Non-Labored Spontaneous Respiratory Depth Normal Blood Pressure Blood Pressure [Right Arm] 142/81 H Blood Pressure Mean Blood Pressure Mean [Right Arm] 101 Pulse Oximetry 97 Oxygen Delivery Method Room Air Sepsis Recent Fever Within 48 Hours Sepsis New/Unexplained Change in Mental Status Sepsis Action Taken by Nursing 07/26/23 13:33 07/26/23 14:14 Temperature Source Pulse Rate 72 Pulse Rate [Right Finger] Respiratory Rate Respiratory Effort / Characteristics Non-Labored Respiratory Depth Normal Blood Pressure Blood Pressure [Right Arm] Blood Pressure Mean Blood Pressure Mean [Right Arm] Pulse Oximetry Oxygen Delivery Method Sepsis Recent Fever Within 48 Hours Sepsis New/Unexplained Change in Mental Status Sepsis Action Taken by Nursing CONSTITUTIONAL: Well developed, well nourished, mildly ill-appearing, nontoxic and intermittently coughing. HEAD: Normocephalic, atraumatic. EYES: conjunctivae normal, extraocular muscles intact. ENMT: External ears normal. Nose with normal external appearance, minimal congestion is present. Oral mucous membranes dry. Oropharynx otherwise normal. No frontal or sinus tenderness. NECK: Full active range of motion. No JVD LYMPHATIC: No cervical adenopathy RESPIRATORY: Upper airway transmitted sounds are appreciated. Patient with an intermittent productive cough. There are diffuse expiratory wheezes and rhonchi. No inspiratory rales. CARDIOVASCULAR: Regular rate and rhythm. No murmurs, rubs, or gallops. ABDOMEN: Normal bowel sounds. Soft, nontender, no peritonitis. No masses. MUSCULOSKELETAL: Patient is generally weak and has a hard time moving her lower extremities. No edema in bilateral lower extremities. Patient is unable to stand. She panics and states that she is going to fall when attempting to stand with assistance. SKIN: [place], warm, dry. The genital area and area under the pannus is quite erythematous with satellite lesions NEUROLOGIC: Awake, alert, oriented. Gaze is conjugate. Face symmetric, speech normal. Moves head and all four extremities spontaneously though is very weak. Sensation and strength grossly intact. PSYCHIATRIC: Appropriate. Normal affect Course Reevaluation(s) Reevaluation #1: Reevaluated patient at bedside. She is resting more comfortably. States that her breathing is better. Her secretions have improved. Awaiting lab results. Time: 12:13 Administered Medications Discontinued Medications Albuterol (Albut/Ipratrop 3mg/0.5mg Neb 3 Ml Vial) 3 ml NEB NOW STA; Protocol Stop: 07/26/23 09:49 Last Admin: 07/26/23 10:38 Dose: 3 ml Documented By: NRLeilani Albuterol (Albut/Ipratrop 3mg/0.5mg Neb 3 Ml Vial) 3 ml NEB NOW STA; Protocol Stop: 07/26/23 13:56 Last Admin: 07/26/23 14:14 Dose: 3 ml Documented By: ANGELIQUE Dexamethasone Sodium Phosphate (DexamethasonePf 10 Mg/Ml Vial) 10 mg IV NOW ONE Stop: 07/26/23 09:51 Last Admin: 07/26/23 11:11 Dose: 10 mg Documented By: ANGELIQUE Guaifenesin (Guaifenesin 600 Mg Tabcr) 1,200 mg PO NOW STA Stop: 07/26/23 10:13 Last Admin: 07/26/23 10:37 Dose: 1,200 mg Documented By: ANGELIQUE Sodium Chloride (Nss) 500 mls @ 999 mls/hr IV .Q31M ONE Stop: 07/26/23 10:42 Last Infusion: 07/26/23 15:01 Dose: Infused Documented By: Admin: 07/26/23 11:13 Dose: 999 mls/hr Documented By: ANGELIQUE Magnesium Sulfate/Dextrose (Magnesium Sulfate / D5w) 1 gm in 100 mls @ 100 mls/hr IV Q1H STA Stop: 07/26/23 14:41 Last Admin: 07/26/23 14:13 Dose: 100 mls/hr Documented By: ANGELIQUE Medical Decision Making Differential Diagnosis Reactive airway disease, asthma, bronchitis, upper respiratory infection, pneumonia, sinusitis, acute coronary syndrome, electrolyte imbalance, deconditioning, pulmonary embolism, pneumothorax, among other pathology Medical Records Attestation: I reviewed the patient's medical records. (Reviewed discharge summary from 4 days ago) Laboratory Data 07/26/23 11:03 07/26/23 13:06 Lab Results 07/26/23 07/26/23 07/26/23 Range/Units 09:50 10:30 11:03 WBC 8.70 (4.8-10.8) K/ul RBC 3.95 L (4.20-5.40) M/uL Hgb 12.6 (12.0-16.0) g/dl Hct 38.2 (37.0-47.0) % MCV 96.7 (80.0-100.0) fL MCH 31.9 (25.0-34.0) pg MCHC 33.0 (32.0-36.0) g/dL RDW Std Deviation 57.2 H (36.4-46.3) fL RDW Coeff of Kaia 17.5 H (11.5-14.5) % Plt Count 140 (130-400) K/uL MPV 12.8 H (9.4-12.4) fL Immature Gran % (Auto) 0.5 % Neut % (Auto) 71.5 % Lymph % (Auto) 20.5 % [place] % (Auto) 5.4 % Eos % (Auto) 1.8 % Baso % (Auto) 0.3 % Neut # (Auto) 6.22 (1.40-6.50) K/uL Lymph # (Auto) 1.78 (1.20-3.40) K/uL [place] # (Auto) 0.47 (0.11-0.59) K/uL Eos # (Auto) 0.16 (0.00-0.50) K/uL Baso # (Auto) 0.03 (0.00-0.20) K/uL Immature Gran # (Auto) 0.04 (0.01-0.20) K/uL Sodium Cancelled Potassium Cancelled Chloride Cancelled Carbon Dioxide Cancelled Anion Gap Cancelled BUN Cancelled Creatinine Cancelled Est Cr Clr Drug Dosing Cancelled Est GFR ( Amer) Cancelled Est GFR (Non-Af Amer) Cancelled BUN/Creatinine Ratio Cancelled Glucose Cancelled Calcium Cancelled Magnesium Cancelled Total Bilirubin Cancelled AST Cancelled ALT Cancelled Alkaline Phosphatase Cancelled Troponin I High Sens 4.2 (0-14) pg/ml Total Protein Cancelled Albumin Cancelled Globulin Cancelled Albumin/Globulin Ratio Cancelled Urine Color Dark Yellow Urine Appearance Clear (Clear) Urine pH 5.0 (4.5-7.5) Ur Specific [place] 1.021 (1.000-1.030) Urine Protein Negative (Negative) Urine Glucose (UA) Negative (Negative) Urine Ketones Trace H (Negative) Urine Blood Negative (Negative) Urine Nitrite Negative (Negative) Urine Bilirubin Negative (Negative) Urine Urobilinogen Negative (Negative) Ur Leukocyte Esterase Negative (Negative) SARS-CoV-2 (PCR) NEGATIVE (Negative) Influenza Type A (PCR) Negative (Neg) Influenza Type B (PCR) Negative (Neg) RSV (RT-PCR) Negative (Neg) 07/26/23 Range/Units 13:06 WBC (4.8-10.8) K/ul RBC (4.20-5.40) M/uL Hgb (12.0-16.0) g/dl Hct (37.0-47.0) % MCV (80.0-100.0) fL MCH (25.0-34.0) pg MCHC (32.0-36.0) g/dL RDW Std Deviation (36.4-46.3) fL RDW Coeff of Kaia (11.5-14.5) % Plt Count (130-400) K/uL MPV (9.4-12.4) fL Immature Gran % (Auto) % Neut % (Auto) % Lymph % (Auto) % [place] % (Auto) % Eos % (Auto) % Baso % (Auto) % Neut # (Auto) (1.40-6.50) K/uL Lymph # (Auto) (1.20-3.40) K/uL [place] # (Auto) (0.11-0.59) K/uL Eos # (Auto) (0.00-0.50) K/uL Baso # (Auto) (0.00-0.20) K/uL Immature Gran # (Auto) (0.01-0.20) K/uL Sodium 144 Potassium 4.1 Chloride 115 H Carbon Dioxide 24 Anion Gap 5 BUN 21 Creatinine 0.67 Est Cr Clr Drug Dosing 98.2 Est GFR ( Amer) 103.9 Est GFR (Non-Af Amer) 89.7 BUN/Creatinine Ratio 31.3 H Glucose 94 Calcium 8.3 L Magnesium 1.1 L Total Bilirubin 0.4 AST 33 ALT 32 Alkaline Phosphatase 85 Troponin I High Sens (0-14) pg/ml Total Protein 5.7 L Albumin 3.1 L Globulin 2.6 Albumin/Globulin Ratio 1.2 Urine Color Urine Appearance (Clear) Urine pH (4.5-7.5) Ur Specific [place] (1.000-1.030) Urine Protein (Negative) Urine Glucose (UA) (Negative) Urine Ketones (Negative) Urine Blood (Negative) Urine Nitrite (Negative) Urine Bilirubin (Negative) Urine Urobilinogen (Negative) Ur Leukocyte Esterase (Negative) SARS-CoV-2 (PCR) (Negative) Influenza Type A (PCR) (Neg) Influenza Type B (PCR) (Neg) RSV (RT-PCR) (Neg) Imaging Data Attestation: I personally reviewed and interpreted this imaging study as follows: (I agree with the radiologist's interpretation) Radiologist's Impression: Chest X-Ray 07/26/23 09:48 SINGLE VIEW CHEST CLINICAL HISTORY: Cough FINDINGS: An AP, portable, upright chest radiograph is compared to study dated 07/20/2023. Correlation is made with chest CT dated 07/25/2021. The heart is enlarged noting atherosclerotic calcification of the thoracic aorta. The pulmonary vasculature is noncongested. Chronic interstitial thickening is similar to previous. There is bibasilar scarring/atelectasis. No airspace consolidation or pleural effusion is identified. No pneumothorax is seen. The skeletal structures are osteopenic. The bony thorax is grossly intact. IMPRESSION: Cardiomegaly with no acute cardiopulmonary abnormality identified. ACT 112: Negative or not required by law. Electronically signed by: Cisco Atkins M.D. 07/26/2023 10:19 AM ECG Data Attestation: I personally reviewed and interpreted this ECG as follows: (Sinus rhythm with a rate of 84. Intervals within normal limits. No acute ST elevation. No evidence of ischemia. Compared to prior ECG from 07/20/2023, NJ interval now normal.) MDM Narrative This is a 68-year-old female who was discharged from the hospital 4 days ago for UTI, possible sepsis, rhinovirus infection, who presents to the emergency department via EMS for an increase in productive cough and having "shakes" this morning. She endorses generalized weakness, fear of falling when standing and pivoting to the commode. Pain in her genital area. Denying any shortness of breath or chest pain. See above for further details. Patient mildly ill-appearing but certainly nontoxic. She does appear to be globally weak. She has significant upper airway secretions and a productive cough. She has diffuse expiratory wheezes and rhonchi. O2 saturation 99 to 100% on room air. She is not tachycardic. She had some relief with initial DuoNeb treatment from EMS and is requesting an additional DuoNeb. An IV was inserted and labs were obtained. Patient was given an additional DuoNeb here in the emergency department. She was also given dexamethasone and Mucinex. Gentle IV fluids administered. EKG sinus rhythm with no ischemic changes. NJ interval no normal. An order was placed for continuous cardiac monitoring at time of evaluation demonstrates a sinus rhythm in the 80s Chest x-ray 1 view demonstrates no infiltrate Labs: No leukocytosis or significant anemia. No thrombocytopenia. Chronically elevated chloride at 115. Magnesium is low at 1.1. Patient with history of this though has not been this low before. Repleted with 2 g IV over 2 hours. This certainly could be contributing to her weakness. Urine is dark yellow without evidence of infection. COVID, influenza, RSV negative. Patient initially responded well to the steroids and DuoNeb treatment however her wheezing returned and she required an additional DuoNeb treatment. Her vitals remained stable. Considered admission versus discharge and I attempted to have the patient's stand and pivot with assistance from RN but the patient was unable to stand due to feeling extremely weak and stated that she was going to fall if she tried to stand up. Case reviewed with ED attending Dr. Bailey. We will admit the patient. She does seem to be significantly deconditioned and I do not think she will do well on an outpatient basis given her comorbidities. Case discussed with Remington Valverde PA-C with [facility] hospitalist group who agrees to admit the patient for ongoing management. Impression Hypomagnesemia, Generalized muscle weakness, Asthmatic bronchitis, Yeast dermatitis Discharge Plan Visit Data Chief Complaint: Shortness of Breath/Dyspnea Stated Complaint: SOB ED Provider: Ok Bailey ED Midlevel Provider: Cullen Taylor Discharge Problem: Hypomagnesemia, Generalized muscle weakness, Asthmatic bronchitis, Yeast dermatitis Patient Disposition: Admitted As Inpatient Forms Stand Alone Forms: My [facility] Prescriptions Prescriptions: No Action metformin 500 mg tablet 500 mg PO BID levothyroxine 25 mcg tablet 25 mcg PO DAILYBB omeprazole 20 mg capsule,delayed release(DR/EC) 20 mg PO PM benazepril 40 mg tablet 40 mg PO QAM aspirin 81 mg Tablet,Delayed Release (Dr/Ec) 81 mg PO QAM Qty: 30 0RF atorvastatin 40 mg tablet 40 mg PO HS fluticasone propion-salmeterol 250-50 mcg/dose blister with device 0 inh INHALATION BID Rx Instructions: Unable to verify this medication with patient/caregiver at this date/time. Was able to verify that it was picked up by Pharmacy. Original Directions: 1 inhalation twice daily bumetanide 0.5 mg tablet 0.5 mg PO UD PRN (Reason: fluid overload ) Rx Instructions: TAKE 1 TABLET BY MOUTH EVERY DAY, WITH 2ND DOSE IN EVENING DIRECTED FOR FLUID OVERLOAD diclofenac potassium 50 mg tablet 0 mg PO HS Rx Instructions: Medication list showing patient only takes 50mg by mouth at night. Original Directions: 50mg by mouth three times daily as needed for pain docusate sodium 100 mg capsule 100 mg PO PM Super B Complex 27-300 mg Tablet 0 tab PO PM Rx Instructions: Unable to verify strength of OTC medication with patient/caregiver at this date/time cholecalciferol (vitamin D3) 125 mcg (5,000 unit) tablet 5,000 unit PO QAM Women's 50 Plus Advanced 400-20 mcg Tablet 1 tab PO QAM turmeric 400 mg Capsule 0 mg PO QAM Rx Instructions: Unable to verify strength of OTC medication with patient/caregiver at this date/time. potassium chloride 10 mEq tablet extended release 0 meq PO PM Rx Instructions: Unable to verify strength of potassium with patient/caregiver at this date/time. amoxicillin-pot clavulanate 875-125 mg tablet 0 tab PO BID Rx Instructions: Unable to verify this medication with patient/caregiver at this date/time. Was able to verify that it was picked up by Pharmacy. Original Directions: 1 tablet by mouth twice daily. Start Date 07/24/23 - End Date 07/29/23. Referrals Referrals: Rhona Canales [Primary Care Provider] - Discharge Problem: Asthmatic bronchitis Qualifiers: Asthma severity: unspecified severity Asthma persistence: unspecified Asthma complication type: with acute exacerbation Qualified Code(s): J45.901 - Unspecified asthma with (acute) exacerbation
[2023-07-26] MEDS ORDERED: ALBUT/IPRATROP 3MG/0.5MG NEB 3 ML VIAL NEB STA ×2 (09:48→13:55)
[2023-07-26] MEDS ORDERED: dexAMETHasone**PF** 10 MG/ML VIAL IV ONE (09:50)
[2023-07-26 10:07] LABS: Appearance Urine Clear (Clear); Bilirubin Urine Negative (Negative); Blood Urine Negative (Negative); Color Urine Dark Yellow; Glucose Urine UA Negative (Negative); Ketones Urine Trace (Negative); Leukocyte Esterase Urine Negative (Negative); Nitrite Urine Negative (Negative); Protein Urine Negative (Negative); Specific Gravity Urine 1.021 (1.000-1.030); Urobilinogen Urine Negative (Negative)
[2023-07-26] MEDS ORDERED: SODIUM CHLORIDE 0.9% 500 ML IV ONE (10:12)
[2023-07-26] MEDS ORDERED: guaiFENesin 600 MG TABCR PO STA (10:12)
--- NOTE | 2023-07-26 10:21 | XRay Report ---
SINGLE VIEW CHEST CLINICAL HISTORY: Cough FINDINGS: An AP, portable, upright chest radiograph is compared to study dated 07/20/2023. Correlation is made with chest CT dated 07/25/2021. The heart is enlarged noting atherosclerotic calcification of the thoracic aorta. The pulmonary vasculature is noncongested. Chronic interstitial thickening is sim ilar to previous. There is bibasilar scarring/atelectasis. No airspace consolidation or pleural effus ion is identified. No pneumothorax is seen. The skeletal structures are osteopenic. The bony thorax i s grossly intact. IMPRESSION: Cardiomegaly with no acute cardiopulmonary abnormality identified. ACT 112: Negative or not required by law. Electronically signed by: Cisco Atkins M.D. 07/26/2023 10:19 AM
[2023-07-26 11:28] LABS: Basophils # (auto) 0.03 K/uL (0.00-0.20); Basophils % (auto) 0.3 %; Eosinophils # (auto) 0.16 K/uL (0.00-0.50); Eosinophils % (auto) 1.8 %; Hematocrit (blood only) 38.2 % (37.0-47.0); Hemoglobin 12.6 g/dl (12.0-16.0); Immature Granulocytes # (auto) 0.04 K/uL (0.01-0.20); Immature Granulocytes % (auto) 0.5 %; Lymphocytes # (auto) 1.78 K/uL (1.20-3.40); Lymphocytes % (auto) 20.5 %; Mean Corpuscular Hemoglobin 31.9 pg (25.0-34.0); Mean Corpuscular Volume 96.7 fL (80.0-100.0); Mean Platelet Volume 12.8 fL (9.4-12.4); Monocytes # (auto) 0.47 K/uL (0.11-0.59); Monocytes % (auto) 5.4 %; Neutrophils # (auto) 6.22 K/uL (1.40-6.50); Neutrophils % (auto) 71.5 %; Platelet Count 140 K/uL (130-400); RDW Coefficient of Variation 17.5 % (11.5-14.5); RDW Standard Deviation 57.2 fL (36.4-46.3); Red Blood Count 3.95 M/uL (4.20-5.40)
[2023-07-26 11:28] LABS: Influenza A virus by PCR Negative (Neg); Influenza B virus by PCR Negative (Neg); RSV by PCR Negative (Neg); SARS CoV2 RNA(COVID-19) Ceph NEGATIVE (Negative)
--- NOTE | 2023-07-26 11:45 | Emergency Department Note ---
ED Visit Note Attending note; Patient was seen by the POLLO, we had a full discussion of the patient's presentation and recent admission for urinary tract infection upper respiratory tract infection possible sepsis Patient returns due to shortness of breath I reviewed the patient's nonischemic EKG, the chest x-ray interpreted by me as cardiomegaly, the patient's labs, patient has a normal white blood cell count, patient's respiratory swab which is negative Plan per the POLLO, IM in agreement with that plan and treatment and disposition of this patient .
[2023-07-26 13:37] LABS: Albumin Globulin Ratio 1.2 (0.9-2); Albumin Level 3.1 gm/dl (3.4-5.0); BUN Creatinine Ratio 31.3 (10-20); Bilirubin,Total 0.4 mg/dl (0.2-1.0); Calcium 8.3 mg/dl (8.6-10.3); Creatinine Clr Calc Pharmacy 98.2 ml/min; Est GFR (African American) 103.9 ml/min; Est GFR (Non-African American) 89.7 ml/min; Globulin 2.6 gm/dl (2.5-4.0); Magnesium 1.1 mg/dl (1.7-2.4); Potassium 4.1 mmol/L (3.5-5.1); Total Protein 5.7 gm/dl (6.0-8.3)
[2023-07-26] MEDS ORDERED: MAGNESIUM SULFATE / D5W 1 GM/100 ML BAG IV STA (13:42)
--- NOTE | 2023-07-26 14:44 | History & Physical Report ---
Date of Service July 26, 2023 Assessment & Plan (1) Asthmatic bronchitis: Plan: Worsening SOB and productive cough since hospital discharge on 07/22 [facility] hospitalization from 07/20 - 07/22 for UTI, possible sepsis, and rhinovirus No leukocytosis on arrival; non-hypoxic; afebrile + Entero-/rhinovirus PCR on 07/20/2023 COVID, flu, RSV negative on 07/26/2023 EKG NSR at 84 bpm; QTc 432 CXR revealed cardiomegaly with NAF Procalcitonin WNL BNP WNL at 29 Hold Advair Supplemental oxygen as needed to maintain SpO2>94% DuoNeb 3 mL QIDR Guaifenesin 1200 mg p.o. q12h for cough Solu-Medrol 40 mg IV QAM; avoid inhaled steroids in setting of potential thrush Formoterol 20 mcg neb BID Acetaminophen as needed for pain/fever A.m. CBC, BMP, mag (2) Generalized muscle weakness: Plan: PT/OT consulted Patient ambulates with a walker at baseline; activity as tolerated Bedside commode Case management consulted for possible rehab placement upon discharge (3) Hypomagnesemia: Plan: Magnesium 1.1 on arrival Magnesium sulfate 1 g IV x4 Check a.m. mag (4) Diabetes: Plan: Last A1c at 6.5% on 07/21/2023; no need to repeat Glucose 94 on admission Hold metformin Recommend Lantus 18u BID while inpatient SSI; with target BSG range 110-140mg/dL, CF 20, carb ratio 6 T2DM diet Adjust regimen as needed Pharmacy glycemic consult due to concomitant steroid use (Solu-Medrol 40 mg IV QAM) (5) Hypertension: Plan: Continue benazepril (6) Hypothyroidism: Plan: Continue levothyroxine (7) Yeast dermatitis: Plan: Miconazole nitrate powder applied topically to the pannus BID (8) Thrush: Plan: Clotrimazole michelle (9) History of UTI: Plan: UA negative on arrival Patient was discharged on 07/22 on Augmentin 875-125 mg p.o. twice daily; filled on 07/24 Can finish course while inpatient Plan Disposition: Admit to [facility] telemetry Full code T2DM diet VTE PPx: Lovenox 40 mg SQ q12h History of Present Illness Chief Complaint: SOB/dyspnea Primary Care Provider: Rhona Canales Dali is a 68-year-old female with PMH of HTN, hypothyroidism, asthma, MS, and diabetes. She was recently hospitalized at [facility] from 07/20 - 07/22 for acute UTI, possible sepsis, and entero-/rhinovirus. Patient endorses worsening SOB at rest, and with exertion. She has been using nebulizers at home, which she reports helps. Patient also endorses tremors, and generalized weakness. She reports that she tried to get her to her commode this morning, but was too weak to stand up. Patient was recently discharged on Augmentin [id number] p.o. twice daily for her UTI, which she reports she has been taking. Her is present at the bedside, and reports that he helps manage her medications. She did not take any of her daily morning medications today. She reports no recent changes in medication other than the Augmentin. She takes Bumex 0.5 mg p.o. as needed; last time taken on 07/25. She denies smoking, tobacco use, alcohol use, vaping, and recreational drug use. She does not use any supplemental oxygen at home. Patient is mildly hypertensive at 142/81 at time of admission; SpO2 100% on RA; vitals otherwise stable. ED course: Magnesium sulfate 1 g IV DuoNeb 3 mL x 2 Decadron 10 mg IV Guaifenesin 1200 mg p.o. NSS 500 mL IV ROS: Patient endorses generalized weakness, sore throat, chills, body aches, productive cough (green sputum), sinus congestion, SOB at rest, chest palpitations, urinary s/s, dysuria, and muscle spasms in the legs. Patient denies fever, rash, pleuritic CP, hemoptysis, or numbness/tingling/pain in the arms. Allergies Allergy/AdvReac Type Severity Reaction Status Date / Time montelukast [From Oliver] Allergy Mild Verified 07/26/23 12:20 Fish Containing Products Allergy Unknown Verified 07/27/23 10:09 shellfish derived Allergy Verified 07/27/23 10:09 codeine AdvReac Mild NAUSEATED Verified 07/26/23 12:20 Home Medications Medication Instructions Recorded Confirmed Type benazepril 40 mg tablet 40 mg PO QAM 06/25/21 07/26/23 History levothyroxine 25 mcg tablet 25 mcg PO DAILYBB 06/25/21 07/26/23 History metformin 500 mg tablet 500 mg PO BID 06/25/21 07/26/23 History omeprazole 20 mg capsule,delayed 20 mg PO PM 06/25/21 07/26/23 History release aspirin 81 mg tablet,delayed 81 mg PO QAM #30 tabs 08/16/21 07/26/23 Rx release atorvastatin 40 mg tablet 40 mg PO HS 07/20/23 07/26/23 History bumetanide 0.5 mg tablet 0.5 mg PO UD PRN fluid overload 07/20/23 07/26/23 History fluticasone 250 mcg-salmeterol 50 0 inh inhalation BID 07/20/23 07/26/23 History mcg/dose blistr powdr for inhalation amoxicillin 875 mg-potassium 0 tab PO BID 07/26/23 07/26/23 History clavulanate 125 mg tablet cholecalciferol (vitamin D3) 125 5,000 unit PO QAM 07/26/23 07/26/23 History mcg (5,000 unit) tablet diclofenac potassium 50 mg tablet 0 mg PO HS 07/26/23 07/26/23 History docusate sodium 100 mg capsule 100 mg PO PM 07/26/23 07/26/23 History iron-vitamin B complex with C 27 0 tab PO PM 07/26/23 07/26/23 History mg-300 mg tablet kzopdjuxwscz-syuaflmc-cnnbkgp-folic 1 tab PO QAM 07/26/23 07/26/23 History acid 400 mcg-vit K1 20 mcg tablet (Women's 50 Plus Advanced) potassium chloride 10 mEq 0 meq PO PM 07/26/23 07/26/23 History tablet,extended release turmeric 400 mg capsule 0 mg PO QAM 07/26/23 07/26/23 History Past Med/Surg History Medical History (Updated 07/26/23 @ 16:25 by Remington Valverde PA-C) History of UTI Morbid obesity Asthma Hypothyroidism Hypertension Left-sided weakness DUNCAN (acute kidney injury) Brain TIA Diabetes Multiple sclerosis UTI (urinary tract infection) Sepsis Acute respiratory failure with hypoxia Osteoarthritis of knees, bilateral Sinusitis, acute Morbid obesity with BMI of 50.0-59.9, adult Tachy-rowena syndrome GERD (gastroesophageal reflux disease) Hypothyroidism Pancreatitis Thrombocytopenia Peripheral edema Septic shock Hypomagnesemia Fungal dermatitis Asthma Hypertension Diabetes Influenza A Pneumonia Multiple sclerosis Surgical History H/O tubal ligation H/O sinus surgery History of arthroscopic knee surgery Hx of tonsillectomy H/O: hysterectomy No pertinent past surgical history Family History Other Family history non-contributory Social History Smoking Status: Never smoker Second Hand Exposure: No; Do You Dip or Chew Tobacco: No; Hx Alcohol Use: No Hx Substance Use: No Preferred Language: Faroese Communication Ability: Effective Junior Accountant Required: No Beliefs That Will Affect Care: None marital status: Current Living Situation: Spouse and Family Current Living Situation Comment: and granddaughter How many Children do You have: 2 Feels Safe at Home: Yes Diet: gluten free during the past year weight has: decreased > 10 lbs Assistive Devices: Nebulizer, Scooter/Electric Scooter and Walker Review of Systems Review of Systems: See HPI above Physical Exam Physical Exam: General: Mild respiratory distress; productive cough; tremors; pallor; non-toxic appearing; cooperative HEENT: normocephalic, atraumatic; no scleral icterus; PERRLA w/ EOMs intact; moist mucus membrane; white exudates on the oropharynx; vision and hearing grossly intact Neck: supple; negative for JVD; no lymphadenopathy; trachea midline Skin: warm, dry without signs of tenting; no cyanosis; no rashes, bruising, or lesions noted; erythema and excoriations on the pannus CV: chest wall NTP; RRR; S1/S2 normal; no murmurs/rubs/gallops; pulses intact and symmetric at radial, DP, and PT Lungs: Mild respiratory distress; symmetrical chest wall expansion; expiratory wheezing across all lung collazo bilaterally ABD: Soft, NTP; BS present; left-sided abdominal hernia noted; no rebound/guarding; distention secondary to patient's body habitus MSK: no tics or fasciculations; +2 pitting edema in the LEs B/L, nonerythematous Neuro: A&Ox3; normal mood and affect; fluent speech; no focal deficits; sensation grossly intact in the LEs B/L Results & Data Results & Data Vital Signs (Past 12 Hours) Vital Signs Pulse Pulse Resp BP BP Pulse Ox O2 Del Method 07/26/23 13:33 72 07/26/23 13:30 69 18 142/81 H 97 07/26/23 13:14 Room Air 07/26/23 11:16 86 16 128/44 L 99 Room Air 07/26/23 09:55 100 Room Air 07/26/23 09:38 84 07/26/23 09:10 91 H 26 H 118/84 100 Room Air Laboratory Results Abnormal lab results 07/26/23 07/26/23 07/26/23 Range/Units 09:50 11:03 13:06 RBC 3.95 L (4.20-5.40) M/uL RDW Std Deviation 57.2 H (36.4-46.3) fL RDW Coeff of Kaia 17.5 H (11.5-14.5) % MPV 12.8 H (9.4-12.4) fL Chloride 115 H (98-107) mmol/L BUN/Creatinine Ratio 31.3 H (10-20) Calcium 8.3 L (8.6-10.3) mg/dl Magnesium 1.1 L (1.7-2.4) mg/dl Total Protein 5.7 L (6.0-8.3) gm/dl Albumin 3.1 L (3.4-5.0) gm/dl Urine Ketones Trace H (Negative) Diagnostic Findings Chest X-Ray 07/26/23 09:48 SINGLE VIEW CHEST CLINICAL HISTORY: Cough FINDINGS: An AP, portable, upright chest radiograph is compared to study dated 07/20/2023. Correlation is made with chest CT dated 07/25/2021. The heart is enlarged noting atherosclerotic calcification of the thoracic aorta. The pulmonary vasculature is noncongested. Chronic interstitial thickening is similar to previous. There is bibasilar scarring/atelectasis. No airspace consolidation or pleural effusion is identified. No pneumothorax is seen. The s keletal structures are osteopenic. The bony thorax is grossly intact. IMPRESSION: Cardiomegaly with no acute cardiopulmonary abnormality identified. ACT 112: Negative or not required by law. Electronically signed by: Cisco Atkins M.D. 07/26/2023 10:19 AM Code Status & VTE Plan Code Status Full code VTE Prophylaxis Plan VTE Prophylaxis will be ordered: Yes Supervising Physician Co-Signing Physician Notes I personally saw and examined the patient. I independently reviewed the labs, EKG, imaging, problem list, medication list, past medical history and family history. I verified all ray points and agree with Remington Valverde PA-C with the following exceptions and/or additions: 68 year old presents to the ER with generalized weakness and shortness of breath following recent discharge on July 22 with UTI. She notes not being safe at home at this time. Shortness of breath ongoing since last admission but progressively getting worse. Significant improvement with nebulizers. O/E A&Ox3, HS RRR, no murmurs, Chest rhonchi b/l anterior, mild end expiratory wheeze posteriorly, Abdo SNT, no CVA tenderness A/P Asthma exacerbation - suspect exacerbated due to recent entero/rhinovirus, mild end exp wheeze on exam, duonebs, solu-medrol 40mg IV daily Generalized weakness - suspect from asthma exacerbation and generalized deconditioning PG Care Time/CCT Total # of Minutes Spent Total Time Spent with Patient: Total time spent is greater than 50% in coordination of care (as documented) at patient's floor/unit and/or counseling patient: Coding [place] [address] INT INP/OBS CARE 3/75MIN Patient Type Established Medical Decision Making High Complexity Diagnoses Asthmatic bronchitis J45.901 Asthma complication type: with acute exacerbation Asthma persistence: unspecified Asthma severity: unspecified severity Generalized muscle weakness M62.81 Hypomagnesemia E83.42 Diabetes E11.9 Hypertension I10 Hypothyroidism E03.9 Yeast dermatitis B37.2 Thrush B37.0 History of UTI Z87.440 (1) Asthmatic bronchitis Asthma complication type: with acute exacerbation Asthma persistence: unspecified Asthma severity: unspecified severity Qualified Code(s): J45.901 - Unspecified asthma with (acute) exacerbation
[2023-07-26] MEDS: MAGNESIUM SULFATE / D5W 1 GM/100 ML BAG IV SCH ×3 (15:27→20:09)
[2023-07-26] MEDS ORDERED: NYSTATIN SUSP 500,000 U/5 ML UDC PO SCH (17:00)
[2023-07-26] MEDS ORDERED: GLUCOSE 40% GEL 15 GM TUBE PO PRN (18:44)
[2023-07-26] MEDS ORDERED: ONDANSETRON INJ 2 MG/ML 2 ML VIAL IV PRN (18:44)
[2023-07-26] MEDS ORDERED: CARBOHYDRATES FOR HYPOGLYCEMIA PO PRN (18:44)
[2023-07-26] MEDS ORDERED: GLUCOSE 10 TAB/TUBE PO PRN (18:44)
[2023-07-26] MEDS ORDERED: PHARMACY GLYCEMIC MGMT CONSULT PRN (18:44)
[2023-07-26] MEDS ORDERED: GLUCAGON FOR INJ 1 MG VIAL SQ PRN (18:44)
[2023-07-26] MEDS ORDERED: ACETAMINOPHEN 325 MG TAB PO PRN (18:44)
[2023-07-26] MEDS ORDERED: DEXTROSE 50% 50 ML SYRINGE IV PRN (18:44)
[2023-07-26] MEDS: CLOTRIMAZOLE 10 MG TROCHE BUCCAL SCH ×3 (20:00→23:25)
[2023-07-26] MEDS: INSULIN ASPART PER UNIT CHARGE SC SCH ×2 (20:09→20:29)
[2023-07-26] MEDS: MICONAZOLE NITRATE POWDER 85 GM EXT SCH (20:09)
[2023-07-26] MEDS: AMOXICILLIN/CLAVULANATE 500 MG TAB PO SCH (20:10)
[2023-07-26] MEDS: POTASSIUM CHLORIDE 10 MEQ TABCR PO SCH (20:10)
[2023-07-26] MEDS: PANTOprazole 40 MG TAB PO SCH (20:10)
[2023-07-26] MEDS: ATORVASTATIN 40 MG TAB PO SCH (20:11)
[2023-07-26] MEDS: DOCUSATE SODIUM 100 MG CAP PO SCH (20:11)
[2023-07-26] MEDS: ALBUT/IPRATROP 3MG/0.5MG NEB 3 ML VIAL NEB SCH (20:32)
[2023-07-26] MEDS: FORMOTEROL 20 MCG/2 ML VIAL NEB SCH (21:00)
[2023-07-26] MEDS ORDERED: MICONAZOLE NITRATE POWDER 85 GM EXT SCH (21:00)
[2023-07-26] MEDS ORDERED: AMOXICILLIN/CLAVULANATE 875 MG TAB PO SCH (21:00)
[2023-07-27 04:30] LABS: Basophils # (auto) 0.01 K/uL (0.00-0.20); Basophils % (auto) 0.1 %; Hematocrit (blood only) 31.7 % (37.0-47.0); Hemoglobin 10.7 g/dl (12.0-16.0); Immature Granulocytes # (auto) 0.12 K/uL (0.01-0.20); Lymphocytes # (auto) 1.78 K/uL (1.20-3.40); Lymphocytes % (auto) 14.9 %; Mean Corpuscular Hemoglobin 31.7 pg (25.0-34.0); Mean Corpuscular Hgb Conc 33.8 g/dL (32.0-36.0); Mean Corpuscular Volume 93.8 fL (80.0-100.0); Mean Platelet Volume 12.8 fL (9.4-12.4); Monocytes # (auto) 0.81 K/uL (0.11-0.59); Monocytes % (auto) 6.8 %; Neutrophils # (auto) 9.25 K/uL (1.40-6.50); Neutrophils % (auto) 77.2 %; Nucleated RBC # (auto) 0.02 K/uL (0.00-0.12); Nucleated RBC % (auto) 0.2 %; Platelet Count 177 K/uL (130-400); RDW Coefficient of Variation 15.9 % (11.5-14.5); RDW Standard Deviation 53.4 fL (36.4-46.3); Red Blood Count 3.38 M/uL (4.20-5.40); White Blood Count 11.97 K/ul (4.8-10.8)
[2023-07-27 04:50] LABS: BUN Creatinine Ratio 22.1 (10-20); Est GFR (African American) 70.8 ml/min; Est GFR (Non-African American) 61.1 ml/min; Potassium 4.4 mmol/L (3.5-5.1)
[2023-07-27] MEDS: LEVOTHYROXINE SODIUM 25 MCG TABLET PO SCH (05:51)
[2023-07-27] MEDS: FORMOTEROL 20 MCG/2 ML VIAL NEB SCH (06:08)
[2023-07-27] MEDS: ALBUT/IPRATROP 3MG/0.5MG NEB 3 ML VIAL NEB SCH ×4 (06:08→19:35)
[2023-07-27] MEDS: CLOTRIMAZOLE 10 MG TROCHE BUCCAL SCH ×5 (06:25→23:03)
--- NOTE | 2023-07-27 07:51 | Hospitalist Progress Note ---
Date of Service July 27, 2023 Assessment & Plan (1) History of UTI: (2) Thrush: (3) Yeast dermatitis: (4) Asthmatic bronchitis: (5) Generalized muscle weakness: (6) Hypomagnesemia: Plan Dali is a 68-year-old female with PMH of HTN, hypothyroidism, asthma, MS, and diabetes admitted due to asthmatic bronchitis. Asthmatic bronchitis/exacerbation Worsening SOB and productive cough No leukocytosis on arrival; non-hypoxic; afebrile CXR revealed cardiomegaly with NAF Supplemental oxygen as needed to maintain SpO2>94% DuoNeb 3 mL QIDR Guaifenesin 1200 mg p.o. q12h for cough Solu-Medrol 40 mg IV QAM Formoterol 20 mcg neb BID Generalized muscle weakness: Patient with MS, deconditioning due to current illness Patient ambulates with a walker at baseline; activity as tolerated PT/OT consulted Hypomagnesemia - resolved Magnesium 2.0 this am (s/p Mg 4 g IV) Check a.m. mag DM2 Last A1c at 6.5% Hold metformin Lantus 18u BID Pharmacy glycemic consult due to concomitant steroid use Urinary incontinence/ skin breakdown - Dangelo catheter placed -Will d/c before discharge HTN- Continue benazepril Hypothyroidism: Continue levothyroxine Yeast dermatitis: Miconazole nitrate powder applied topically to the pannus BID Thrush: Clotrimazole michelle History of UTI: prev admission UA negative on arrival Augmentin 875-125 mg p.o. twice day Can finish course while inpatient VTE PPx: Lovenox 40 mg SQ q12h Dangelo catheter Admission and Anticipated Discharge Date Admission Date: July 26, 2023 Supervising Physician Co-Signing Physician Notes Attending Physician Supervision Note: I independently interviewed and examined the patient and verified the ray history and physical, reviewed labs and image studies and agree with findings and care plan noted above. Asthma exacerbation due to viral infection - IV steroids, nebs, LABA Subjective Dali is a 68-year-old female with PMH of HTN, hypothyroidism, asthma, MS, and diabetes here due to asthmatic bronchitis. Patient endorses worsening SOB at rest, and with exertion. Patient also with more generalized weakness. Patient refers some productive cough (green sputum) and body chills. Patient was discharge from hospital 07/22, admitted due to possible sepsis, UTI and rhinovirus. She was discharge with Augmentin BID for UTI. Seen this morning found in NAD. Oxygen saturation on 91 at room air. No fever, no leukocytosis. Chills as resolved. Sporadic cough with sputum production. PT/ OT to see her for evaluation of weakness. She denied any chest pain, palpitations, chills, nausea, vomiting or diarrhea. Review of Systems Review of Systems: as HPI Physical Exam Constitutional: + obese; no acute distress Respiratory: Auscultation: + wheezes (Bilateral) Cardiovascular: RRR, no murmur, no edema Gastrointestinal (Abdomen): normal bowel sounds, soft, nontender, no hepatosplenomegaly Results & Data Results & Data Vital Signs (Past 12 Hours) Vital Signs Temp Pulse Pulse Resp BP Pulse Ox O2 Del Method 07/27/23 07:36 36.3 C L 85 20 107/69 91 Room Air 07/27/23 07:23 84 07/27/23 06:08 84 18 92 Room Air 07/27/23 00:54 36.3 C L 102 H 20 109/66 94 Room Air 07/26/23 22:31 98 H 07/26/23 20:33 98 H 18 96 Room Air 07/26/23 20:09 36.2 C L 107 H 20 104/58 L 94 Room Air 07/26/23 20:00 Room Air Resident Activity Tracking Resident Involvement: Resident Care Provided Care Provided: Adult Hospital Medicine (4) Asthmatic bronchitis Asthma complication type: with acute exacerbation Asthma persistence: unspecified Asthma severity: unspecified severity Qualified Code(s): J45.901 - Unspecified asthma with (acute) exacerbation
[2023-07-27] MEDS: guaiFENesin 600 MG TABCR PO SCH ×2 (08:14→21:08)
[2023-07-27] MEDS: ASPIRIN 81 MG ECTAB PO SCH (08:15)
[2023-07-27] MEDS: AMOXICILLIN/CLAVULANATE 500 MG TAB PO SCH ×2 (08:15→21:08)
[2023-07-27] MEDS: MICONAZOLE NITRATE POWDER 85 GM EXT SCH ×2 (08:15→21:08)
[2023-07-27] MEDS: methylPREDNISolone 40 MG in SYRINGE 0 ML IV SCH (08:16)
[2023-07-27] MEDS ORDERED: LANTUS PER UNIT CHARGE SQ SCH (09:00)
[2023-07-27] MEDS: INSULIN ASPART PER UNIT CHARGE SC SCH ×4 (09:12→21:08)
--- NOTE | 2023-07-27 13:40 | Pharmacy Report ---
Pharmacy Glycemic Short Note 2 - Date of Service July 27, 2023 - Glycemic Short BSG Results (Last 24 hours): 07/26/23 07/26/23 07/27/23 13:06 19:14 03:58 Glucose 94 107 H POC Glucose 175 H 07/27/23 07/27/23 07:58 12:03 Glucose POC Glucose 115 H 157 H OUTPATIENT ANTIDIABETIC REGIMEN: * Metformin 500 mg PO BID * HbA1c: 6.5% (07/21/23) ASSESSMENT: * 68 yo F admitted on 07/27/23 secondary to shortness of breath. Pharmacy has been consulted to assist with inpatient glycemic management. Patient is a Type 2 diabetic as an outpatient. Please refer to outpatient regimen and most recent HbA1c above. * BSGs last night were 94 and 175 mg/dL. Received 10 mg of IV dexamethasone in the ED. Required 2 units of Novolog last night. * Fasting BSG is 115 mg/dL this AM. Patient is ordered SoluMedrol 40 mg IV daily ongoing. Lunchtime BSG was 157 mg/dL today. * Plan to hold off on basal insulin for now. May require if steroid dose is increased. Continuing with Novolog based on weight/stress of 1-2. PLAN FOR INPATIENT GLYCEMIC CONTROL: * Hold outpatient oral diabetes medications * Basal insulin * NONE * Bolus insulin * NovoLog per scale ACHS or Q6hrs while NPO * Goal Range: Low 110 mg/dL - High 140 mg/dL * Correction Factor: 30 mg/dL/unit * Nutritional / Prandial insulin per carb ratio of 1 unit per 10 grams CHO consumed
--- NOTE | 2023-07-27 20:42 | Electrocardiogram Report ---
Test Reason : Blood Pressure : / mmHG Vent. Rate : 084 BPM Atrial Rate : 084 BPM P-R Int : 164 ms QRS Dur : 080 ms QT Int : 366 ms P-R-T Axes : 010 -21 -10 degrees QTc Int : 432 ms Normal sinus rhythm Minimal voltage criteria for LVH, may be normal variant ( R in aVL ) Possible Lateral infarct (cited on or before 15-AUG-2021) Abnormal ECG When compared with ECG of 20-JUL-2023 04:28, ND interval has decreased Confirmed by Triston Negrete ([id number]) on 07/27/2023 8:42:19 PM Referred By: REFERRED SELF Confirmed By:Triston Negrete
[2023-07-27] MEDS: DOCUSATE SODIUM 100 MG CAP PO SCH (21:07)
[2023-07-27] MEDS: POTASSIUM CHLORIDE 10 MEQ TABCR PO SCH (21:09)
[2023-07-27] MEDS: PANTOprazole 40 MG TAB PO SCH (21:09)
[2023-07-27] MEDS: ATORVASTATIN 40 MG TAB PO SCH (21:09)
[2023-07-28] MEDS: LEVOTHYROXINE SODIUM 25 MCG TABLET PO SCH (05:29)
[2023-07-28 06:12] LABS: Hematocrit (blood only) 31.3 % (37.0-47.0); Hemoglobin 10.2 g/dl (12.0-16.0); Mean Corpuscular Hemoglobin 31.8 pg (25.0-34.0); Mean Corpuscular Hgb Conc 32.6 g/dL (32.0-36.0); Mean Corpuscular Volume 97.5 fL (80.0-100.0); Mean Platelet Volume 12.2 fL (9.4-12.4); Nucleated RBC # (auto) 0.02 K/uL (0.00-0.12); Nucleated RBC % (auto) 0.1 %; Platelet Count 166 K/uL (130-400); RDW Coefficient of Variation 16.9 % (11.5-14.5); RDW Standard Deviation 58.7 fL (36.4-46.3); Red Blood Count 3.21 M/uL (4.20-5.40); White Blood Count 14.66 K/ul (4.8-10.8)
[2023-07-28 06:27] LABS: BUN Creatinine Ratio 20.3 (10-20); Calcium 9.6 mg/dl (8.6-10.3); Creatinine Clr Calc Pharmacy 49.8 ml/min; Est GFR (African American) 49.4 ml/min; Est GFR (Non-African American) 42.6 ml/min; Potassium 4.2 mmol/L (3.5-5.1)
[2023-07-28 06:36] LABS: Basophils # (auto) 0.05 K/uL (0.00-0.20); Basophils % (auto) 0.3 %; Eosinophils # (auto) 0.06 K/uL (0.00-0.50); Eosinophils % (auto) 0.4 %; Immature Granulocytes # (auto) 0.13 K/uL (0.01-0.20); Immature Granulocytes % (auto) 0.9 %; Lymphocytes # (auto) 4.04 K/uL (1.20-3.40); Lymphocytes % (auto) 27.6 %; Monocytes # (auto) 1.12 K/uL (0.11-0.59); Monocytes % (auto) 7.6 %; Neutrophils # (auto) 9.26 K/uL (1.40-6.50); Neutrophils % (auto) 63.2 %; Polychromasia 1+
[2023-07-28] MEDS: ALBUT/IPRATROP 3MG/0.5MG NEB 3 ML VIAL NEB SCH ×2 (07:02→10:08)
--- NOTE | 2023-07-28 07:21 | Hospitalist Progress Note ---
Date of Service July 28, 2023 Assessment & Plan (1) History of UTI: (2) Thrush: (3) Yeast dermatitis: (4) Asthmatic bronchitis: (5) Generalized muscle weakness: (6) Hypomagnesemia: Plan Dali is a 68-year-old female with PMH of HTN, hypothyroidism, asthma, MS, and diabetes admitted due to asthmatic bronchitis. Asthmatic bronchitis/exacerbation Worsening SOB and productive cough No leukocytosis on arrival; non-hypoxic; afebrile CXR revealed cardiomegaly with NAF Supplemental oxygen as needed to maintain SpO2>94% DuoNeb 3 mL QIDR Guaifenesin 1200 mg p.o. q12h for cough Solu-Medrol 40 mg IV QAM Formoterol 20 mcg neb BID Generalized muscle weakness: Patient with MS, deconditioning due to current illness Patient ambulates with a walker at baseline; activity as tolerated PT/OT consulted Hypomagnesemia - resolved Magnesium 2.0 this am (s/p Mg 4 g IV) Check a.m. mag DM2 Last A1c at 6.5% Hold metformin Lantus 18u BID Pharmacy glycemic consult due to concomitant steroid use Urinary incontinence/ skin breakdown - Dangelo catheter placed -Will d/c before discharge HTN- Continue benazepril Hypothyroidism: Continue levothyroxine Yeast dermatitis: Miconazole nitrate powder applied topically to the pannus BID Thrush: Clotrimazole michelle History of UTI: prev admission UA negative on arrival Augmentin 875-125 mg p.o. twice day Can finish course while inpatient VTE PPx: Lovenox 40 mg SQ q12h Dangelo catheter Admission and Anticipated Discharge Date Admission Date: July 26, 2023 Jose Mcnally is a 68-year-old female with PMH of HTN, hypothyroidism, asthma, MS, and diabetes here due to asthmatic bronchitis. Patient endorses worsening SOB at rest, and with exertion. Patient also with more generalized weakness. Patient refers some productive cough (green sputum) and body chills. Patient was discharge from hospital 07/22, admitted due to possible sepsis, UTI and rhinovirus. She was discharge with Augmentin BID for UTI. Seen this morning found in NAD. Oxygen saturation on 91 at room air. No fever, no leukocytosis. Chills as resolved. Sporadic cough with sputum production. PT/ OT to see her for evaluation of weakness. She denied any chest pain, palpitations, chills, nausea, vomiting or diarrhea. Review of Systems Review of Systems: as HPI Physical Exam Constitutional: + obese; no acute distress Respiratory: Auscultation: + wheezes (Bilateral) Cardiovascular: RRR, no murmur, no edema Gastrointestinal (Abdomen): normal bowel sounds, soft, nontender, no hepatosplenomegaly Results & Data Results & Data Vital Signs (Past 12 Hours) Vital Signs Temp Pulse Pulse Resp BP Pulse Ox O2 Del Method 07/28/23 07:02 79 16 98 Room Air 07/28/23 03:44 36.4 C L 81 20 117/75 94 Room Air 07/27/23 23:35 36.4 C L 85 18 98/63 L 94 Room Air 07/27/23 22:01 108 H 07/27/23 20:00 Room Air 07/27/23 19:38 36.4 C L 92 H 18 105/66 92 Room Air 07/27/23 19:35 95 H 19 92 Room Air (4) Asthmatic bronchitis Asthma complication type: with acute exacerbation Asthma persistence: unspecified Asthma severity: unspecified severity Qualified Code(s): J45.901 - Unspecified asthma with (acute) exacerbation
[2023-07-28] MEDS: CLOTRIMAZOLE 10 MG TROCHE BUCCAL SCH ×2 (07:33→10:47)
[2023-07-28] MEDS: methylPREDNISolone 40 MG in SYRINGE 0 ML IV SCH (07:35)
[2023-07-28] MEDS: MICONAZOLE NITRATE POWDER 85 GM EXT SCH (07:35)
[2023-07-28] MEDS: ASPIRIN 81 MG ECTAB PO SCH (07:35)
[2023-07-28] MEDS: guaiFENesin 600 MG TABCR PO SCH (07:35)
[2023-07-28] MEDS: AMOXICILLIN/CLAVULANATE 500 MG TAB PO SCH (07:35)
[2023-07-28] MEDS ORDERED: LACTATED RINGER'S 1,000 ML IV SCH (08:00)
[2023-07-28] MEDS: INSULIN ASPART PER UNIT CHARGE SC SCH ×2 (08:27→12:29)
[2023-07-28] MEDS ORDERED: FLUTICASONE/VILANTEROL 100/25MCG 14 PUFFS/INHALER INH SCH (09:00)
--- NOTE | 2023-07-28 13:22 | Discharge Summary ---
Date of Service July 28, 2023 Admission HPI Per Admitting Provider Dali is a 68-year-old female with PMH of HTN, hypothyroidism, asthma, MS, and diabetes. She was recently hospitalized at [facility] from 07/20 - 07/22 for acute UTI, possible sepsis, and entero-/rhinovirus. Patient endorses worsening SOB at rest, and with exertion. She has been using nebulizers at home, which she reports helps. Patient also endorses tremors, and generalized weakness. She reports that she tried to get her to her commode this morning, but was too weak to stand up. Patient was recently discharged on Augmentin [id number] p.o. twice daily for her UTI, which she reports she has been taking. Her is present at the bedside, and reports that he helps manage her medications. She did not take any of her daily morning medications today. She reports no recent changes in medication other than the Augmentin. She takes Bumex 0.5 mg p.o. as needed; last time taken on 07/25. She denies smoking, tobacco use, alcohol use, vaping, and recreational drug use. She does not use any supplemental oxygen at home. Patient is mildly hypertensive at 142/81 at time of admission; SpO2 100% on RA; vitals otherwise stable. ED course: Magnesium sulfate 1 g IV DuoNeb 3 mL x 2 Decadron 10 mg IV Guaifenesin 1200 mg p.o. NSS 500 mL IV ROS: Patient endorses generalized weakness, sore throat, chills, body aches, productive cough (green sputum), sinus congestion, SOB at rest, chest palpitations, urinary s/s, dysuria, and muscle spasms in the legs. Patient denies fever, rash, pleuritic CP, hemoptysis, or numbness/tingling/pain in the arms. Admission Exam Per Admitting Provider General: Mild respiratory distress; productive cough; tremors; pallor; non-toxic appearing; cooperative HEENT: normocephalic, atraumatic; no scleral icterus; PERRLA w/ EOMs intact; moist mucus membrane; white exudates on the oropharynx; vision and hearing grossly intact Neck: supple; negative for JVD; no lymphadenopathy; trachea midline Skin: warm, dry without signs of tenting; no cyanosis; no rashes, bruising, or lesions noted; erythema and excoriations on the pannus CV: chest wall NTP; RRR; S1/S2 normal; no murmurs/rubs/gallops; pulses intact and symmetric at radial, DP, and PT Lungs: Mild respiratory distress; symmetrical chest wall expansion; expiratory wheezing across all lung collazo bilaterally ABD: Soft, NTP; BS present; left-sided abdominal hernia noted; no rebound/guarding; distention secondary to patient's body habitus MSK: no tics or fasciculations; +2 pitting edema in the LEs B/L, nonerythematous Neuro: A&Ox3; normal mood and affect; fluent speech; no focal deficits; sensation grossly intact in the LEs B/L Principal Diagnosis Asthma exacerbation Discharge Exam Constitutional WD/WN, vitals as above Respiratory Auscultation: + wheezes (Mild right exp wheezing) Cardiovascular RRR, no murmur, no edema Gastrointestinal (Abdomen) normal bowel sounds, soft, nontender, no hepatosplenomegaly Discharge Data Allergies Allergy/AdvReac Type Severity Reaction Status Date / Time montelukast [From Singulair] Allergy Mild Verified 07/26/23 12:20 Fish Containing Products Allergy Unknown Verified 07/27/23 10:09 shellfish derived Allergy Verified 07/27/23 10:09 codeine AdvReac Mild NAUSEATED Verified 07/26/23 12:20 Consultations 07/26/23 14:55 ED Decision to Admit Stat Hospital Course (1) History of UTI: (2) Thrush: (3) Yeast dermatitis: (4) Asthmatic bronchitis: (5) Generalized muscle weakness: (6) Hypomagnesemia: Tito Mcnally is a 68-year-old female with PMH of HTN, hypothyroidism, asthma, MS, and diabetes admitted due to asthmatic bronchitis. Asthmatic bronchitis/exacerbation Worsening SOB and productive cough No leukocytosis on arrival; non-hypoxic; afebrile CXR revealed cardiomegaly with NAF Treated with DuoNeb 3 mL QIDR, Guaifenesin 1200 mg p.o. q12h for cough, Solu- Medrol 40 mg IV QAM, Formoterol 20 mcg neb BID Sent home with Prednisone gabby Generalized muscle weakness: Patient with MS, deconditioning due to current illness Patient ambulates with a walker at baseline; activity as tolerated PT/OT consulted: ok to go home, follow with PCP Creatinine increase - Cr of 1.28 - Seem to be form dehydration -IV fluids 500 ml given - Repeat BMP in a week on outpatient visit. DM2 Last A1c at 6.5% Continue metformin Urinary incontinence/ skin breakdown - Dangelo catheter placed during admission -Discontinue on discharge HTN- Continue benazepril Hypothyroidism: Continue levothyroxine Yeast dermatitis: Miconazole nitrate powder applied topically to the pannus BID Thrush: Clotrimazole michelle History of UTI: prev admission UA negative on arrival Augmentin 875-125 mg p.o. twice day Can finish course while inpatient VTE PPx: Lovenox 40 mg SQ q12h Dangelo catheter Total Time Total Time Spent Total Time Spent (In Minutes): <30 Discharge Plan Discharge Items Patient Disposition: Home - Self-Care Reason For Visit: SOB, GENERALIZED WEAKNESS Discharge Diagnosis: Asthma exacerbation Activity: Per Instructions section Non-emergency contact: Primary Care Provider Call non-emergency contact if: you have any medication questions, your symptoms worsen and you have a fever Follow-up/Referrals: Rhona Canales [Primary Care Provider] - (Please make an appointment with your PCP 7-10 days for a hospital follow up.) Diet: Regular Addtl Attending Provider Instructions: You were admitted due to an asthma exacerbation. You were given therapy and IV steroids. You will be sent home with a prescription for Prednisone 10 mg. You will do a gabby: Take 4 tabs daily for 2 days, then take 3 tabs daily for 2 days, then take 2 tabs daily for 2 days, then 1 tab daily for 2 days, then half a tab daily for 2 days. Continue your home regimen for asthma Follow-up appointments: Make a follow-up appointment with your PCP within the next week. It is very important that you follow up with them shortly after discharge from the hospital. Keep all your follow-up appointments as already scheduled. If you cannot make an appointment, notify your provider. Medications: Your medication list has been reviewed and reconciled upon discharge to ensure accuracy and continuity of care. An updated list of all your medications is included with your hospital discharge paperwork. Please review this list closely, and make note of any changes Take your medications as instructed; do not skip a dose of your medicines. Make sure all of your doctors know every medicine you are taking (including rqpq-dme-zwjantn medicines, vitamins, and supplements). Call your primary care provider before taking any new medicines (including yltf-fet-vlmhjvj medicines, vitamins, and supplements), because some of these may interact with your current medications, or may make your symptoms worse. Tell your primary care provider if you cannot afford your medications. CONTACT YOUR PRIMARY CARE PROVIDER if you experience any of the following: Difficulty following your treatment plan, or difficulty taking medications CALL 911 OR GO TO THE EMERGENCY DEPARTMENT if you experience any of the following: Sudden, severe abdominal pain or nausea/vomiting Severe chest pain, or chest pain that radiates (moves) to your jaw or arm Sudden, severe shortness of breath or difficulty breathing Thank you for allowing us to participate in your care. Pending Studies at Discharge: No Stand-Alone Forms: My [facility] Swish, Smoking Cessation Medications and DC Order Prescriptions: New prednisone 10 mg tablet 10 mg PO DIRECTED Qty: 21 0RF Rx Instructions: see taper instructions Take 4 tabs daily for 2 days, then take 3 tabs daily for 2 days, then take 2 tabs daily for 2 days, then 1 tab daily for 2 days, then half a tab daily for 2 days Continued metformin 500 mg tablet 500 mg PO BID levothyroxine 25 mcg tablet 25 mcg PO DAILYBB omeprazole 20 mg capsule,delayed release(DR/EC) 20 mg PO PM benazepril 40 mg tablet 40 mg PO QAM aspirin 81 mg Tablet,Delayed Release (Dr/Ec) 81 mg PO QAM Qty: 30 0RF atorvastatin 40 mg tablet 40 mg PO HS fluticasone propion-salmeterol 250-50 mcg/dose blister with device 0 inh INHALATION BID Rx Instructions: Unable to verify this medication with patient/caregiver at this date/time. Was able to verify that it was picked up by Pharmacy. Original Directions: 1 inhalation twice daily bumetanide 0.5 mg tablet 0.5 mg PO UD PRN (Reason: fluid overload ) Rx Instructions: TAKE 1 TABLET BY MOUTH EVERY DAY, WITH 2ND DOSE IN EVENING DIRECTED FOR FLUID OVERLOAD diclofenac potassium 50 mg tablet 0 mg PO HS Rx Instructions: Medication list showing patient only takes 50mg by mouth at night. Original Directions: 50mg by mouth three times daily as needed for pain docusate sodium 100 mg capsule 100 mg PO PM Super B Complex 27-300 mg Tablet 0 tab PO PM Rx Instructions: Unable to verify strength of OTC medication with patient/caregiver at this date/time cholecalciferol (vitamin D3) 125 mcg (5,000 unit) tablet 5,000 unit PO QAM Women's 50 Plus Advanced 400-20 mcg Tablet 1 tab PO QAM turmeric 400 mg Capsule 0 mg PO QAM Rx Instructions: Unable to verify strength of OTC medication with patient/caregiver at this date/time. potassium chloride 10 mEq tablet extended release 0 meq PO PM Rx Instructions: Unable to verify strength of potassium with patient/caregiver at this date/time. amoxicillin-pot clavulanate 875-125 mg tablet 0 tab PO BID Rx Instructions: Unable to verify this medication with patient/caregiver at this date/time. Was able to verify that it was picked up by Pharmacy. Original Directions: 1 tablet by mouth twice daily. Start Date 07/24/23 - End Date 07/29/23. Discharge Orders: Discharge Order (Routine); Ordered 07/28/23 Ordered By: Aramis Coulter Admission Data Admit Date/Time: 07/26/23 15:19 Attending Provider: Armando Brush Admit Provider: Clive Church Primary Care Provider: Rhona Canales Other Providers: Clive Church Supervising Physician Co-Signing Physician Notes I personally examined the patient and verified all ray points of history and exam, discussed case, and agree with decision making with Dr Favio Coulter feeling better overall. still coughing but feels better than in a while. after discussion she definitely does feel up to going home and definitely does not want to go to rehab. very appreciative of home health/PT vitals noted nad heent nc at mmm breathing unlabored no accessory muscles good effort skin no rashes no pallor or icterus Asthma exacerbation due to viral infection - improved. safe/stable for home. PO steroid taper. supportive care, time. home PT. otherwise as above Resident Activity Tracking Resident Involvement: Resident Care Provided Care Provided: Adult Hospital Medicine
--- NOTE | 2023-07-28 13:44 | Billing Data ---
Date of Service July 28, 2023 Coding Level of Care Code 41918 IN/OBS DISCH 30 MIN/LESS
== END 2023-07-28 14:20 | disposition home health service (06) | DRG 202 ==
LOC: ED 09:02 → SUATTDRO 15:19 → INTOOBSV 15:19 → 2W 15:19

== ENCOUNTER 2023-09-25 16:13 | Inpatient (IN) ==
[2023-09-25 19:38] LABS: Basophils # (auto) 0.02 K/uL (0.00-0.20); Basophils % (auto) 0.2 %; Eosinophils # (auto) 0.21 K/uL (0.00-0.50); Hematocrit (blood only) 32.5 % (37.0-47.0); Hemoglobin 10.3 g/dl (12.0-16.0); Immature Granulocytes # (auto) 0.03 K/uL (0.01-0.20); Immature Granulocytes % (auto) 0.3 %; Lymphocytes # (auto) 1.81 K/uL (1.20-3.40); Lymphocytes % (auto) 17.2 %; Mean Corpuscular Hemoglobin 31.3 pg (25.0-34.0); Mean Corpuscular Hgb Conc 31.7 g/dL (32.0-36.0); Mean Corpuscular Volume 98.8 fL (80.0-100.0); Mean Platelet Volume 12.6 fL (9.4-12.4); Monocytes # (auto) 0.71 K/uL (0.11-0.59); Monocytes % (auto) 6.7 %; Neutrophils # (auto) 7.77 K/uL (1.40-6.50); Neutrophils % (auto) 73.6 %; Platelet Count 111 K/uL (130-400); RDW Coefficient of Variation 16.9 % (11.5-14.5); RDW Standard Deviation 59.9 fL (36.4-46.3); Red Blood Count 3.29 M/uL (4.20-5.40); White Blood Count 10.55 K/ul (4.8-10.8)
[2023-09-25 19:45] LABS: Alanine Aminotransferase 30 U/L (7-52); Albumin Globulin Ratio 1.2 (0.9-2); Albumin Level 3.9 gm/dl (3.4-5.0); Alkaline Phosphatase 101 U/L (34-104); Anion Gap 10 (3-11); Aspartate Aminotransferase 32 U/L (13-39); BUN Creatinine Ratio 32.7 (10-20); Bilirubin,Total 0.3 mg/dl (0.2-1.0); Blood Urea Nitrogen 33 mg/dl (6-23); Calcium 10.1 mg/dl (8.6-10.3); Carbon Dioxide 24 mmol/L (21-32); Chloride 110 mmol/L (98-107); Est GFR (African American) 65.8 ml/min; Est GFR (Non-African American) 56.8 ml/min; Globulin 3.3 gm/dl (2.5-4.0); Glucose 105 mg/dl (70-99(Fasting)); Magnesium 1.5 mg/dl (1.7-2.4); Potassium 4.4 mmol/L (3.5-5.1); Sodium 144 mmol/L (136-145); Total Protein 7.2 gm/dl (6.0-8.3)
[2023-09-25 19:51] LABS: Troponin I High Sensitivity 4.9 pg/ml (0-14)
[2023-09-25 19:53] LABS: Partial Thromboplastin Time 28 Seconds (21-31); Prothrombin Time 10.9 Seconds (9.0-12.0)
[2023-09-25] MEDS: methylPREDNISolone 125 MG/2 ML VIAL IV STA (20:19)
[2023-09-25] MEDS: MAGNESIUM SULFATE / D5W 1 GM/100 ML BAG IV SCH (20:20)
[2023-09-25 20:22] LABS: Base Excess VBG -0.4 mEq/L; HCO3 VBG 25 mmol/L; Oxygen Saturation VBG 60.1 %; PCO2 VBG 45 mmHg (38-50); PO2 VBG 35 mmHg; pH VBG 7.36 (7.36-7.41)
--- NOTE | 2023-09-25 20:52 | History & Physical Report ---
Date of Service September 25, 2023 Assessment & Plan (1) Generalized muscle weakness: Plan: -Patient with generalized weakness over the last few days in conjunction with shock sensation that comes and goes. -CBC, CMP grossly unchanged from previous admission discharge labs. -Lactate mildly elevated at 2.1 -CXR appears unchanged from prior XR without change in symptoms from discharge. -Current presentation may be more related to MS rather than deconditioning from prior hospitalization given patient at baseline 4 days ago and then had decline. -Will treat as MS flare given severity, will treat with Solu-medrol 1gm daily for 3 days. -Consulted neurology, will appreciate recommendations. -PT/OT consulted for eval and treat. -Admit to med/tele. (2) Multiple sclerosis: Plan: -Patient with history of MS, not currently on any treatment or following with neurology. She has not had a flare up for a few years. -only MRI brain is from 2021 showed T2 hyperintense foci however chart review of [facility] reveals diagnosed prior to that with last MS flare in 2019. -Plan as above. (3) Hypomagnesemia: Plan: -Magnesium 1.5 on admission, repleted 2gm in the ER. -Recheck mag in AM. (4) Asthma: Plan: -Patient with asthma exacerbation on last admission. No change in symptoms from discharge, not having any worsening of symptoms. -Rhonchi on exam however CXR without significant change from prior XR. -Given no change in symptoms or CXR likely not acute asthma exacerbation. -Will continue home nebulized albuterol q6h PRN, mucinex, flutter valve, ipratropium intranasal. (5) Hypothyroidism: Plan: -Continue home levothyroxine (6) Hypertension: Plan: -continue home benazepril. (7) Diabetes: Plan: -Hold home oral medications. -SSI, ACHS checks. -Lantus 19U BID. Plan F/E/N/GI: T2DM carb consistent DVT Prophylaxis: Lovenox 40mg q12h. Code status: Full code Dispo: Med/tele. PT/OT eval and treat History of Present Illness Chief Complaint: Weakness Primary Care Provider: Rhona Linares Ally Mcnally is a 68-year-old female with past medical history of multiple sclerosis, type 2 diabetes, hypertension, allergic asthma, weight disorder, hypothyroidism coming in to the ER for weakness. Patient was previously hospitalized from July 20 to July 22 for acute UTI possible sepsis and enterorhinovirus. She was then readmitted from July 26 until July 28 for acute asthma exacerbation. On discharge at that time she went home with DuoNebs, Mucinex, prednisone taper. She was also treated with Augmentin for UTI during the previous admission. She is wheelchair-bound at baseline. She had follow-up with her primary care office on September 01 with subjectively feeling better. Her [facility] home health had called primary care office to let them know that patient was seen the morning of September 17 coughing up green phlegm along with crackles in the lungs and seeming congested. The patient was using Mucinex inhalers and trying to cough things up. Her oxygen saturation at that time was 97% on room air without any fevers, chills, shortness of breath. A chest x-ray was ordered earlier today by primary care office and patient was told to go to the ER if things should worsen. Patient states that she was at her baseline for upper respiratory symptoms essentially unchanged from discharge at the last hospitalization. She was also at her baseline ambulation up until about 3 days ago. Her baseline ambulation consisted of being able to walk at least 4 steps to use the bathroom. However a few days ago she started to experience increased weakness in the legs as well as a buzzing sensation that would come for her legs or her arms or both. She says the buzzing sensation is hard to describe however it is like a momentary shocking pain. She denies any new fevers, chills, nausea, vomiting, shortness of breath, diarrhea, dysuria, urinary frequency, or other urinary symptoms. In the ER her CBC was unremarkable compared to prior CBC with decrease in the white blood cell count and neutrophil count. VBG unremarkable, CMP only remarkable for magnesium of 1.5. Lactate was mildly elevated at 2.1. Chest x- ray in the ER looked unchanged from previous x-ray from when she was discharged at the last hospitalization, no evidence of consolidation. She was given 125mg Solu-medrol. Allergies Allergy/AdvReac Type Severity Reaction Status Date / Time montelukast [From Singulair] Allergy Mild Unknown Verified 09/25/23 22:10 Fish Containing Products Allergy Unknown Unknown Verified 09/25/23 22:10 shellfish derived Allergy Unknown Verified 09/25/23 22:10 codeine AdvReac Mild NAUSEATED Verified 09/25/23 22:10 Home Medications Medication Instructions Recorded Confirmed Type benazepril 40 mg tablet 40 mg PO QAM 06/25/21 09/25/23 History levothyroxine 25 mcg tablet 25 mcg PO DAILYBB 06/25/21 09/25/23 History metformin 500 mg tablet 500 mg PO BID 06/25/21 09/25/23 History omeprazole 20 mg capsule,delayed 20 mg PO PM 06/25/21 09/25/23 History release aspirin 81 mg tablet,delayed 81 mg PO QAM #30 tabs 08/16/21 09/25/23 Rx release atorvastatin 40 mg tablet 40 mg PO HS 07/20/23 09/25/23 History bumetanide 0.5 mg tablet 0.5 mg PO UD PRN fluid overload 07/20/23 09/25/23 History fluticasone 250 mcg-salmeterol 50 0 inh inhalation BID 07/20/23 09/25/23 History mcg/dose blistr powdr for inhalation amoxicillin 875 mg-potassium 0 tab PO BID 07/26/23 09/25/23 History clavulanate 125 mg tablet cholecalciferol (vitamin D3) 125 5,000 unit PO QAM 07/26/23 09/25/23 History mcg (5,000 unit) tablet docusate sodium 100 mg capsule 100 mg PO PM 07/26/23 09/25/23 History zzuxiwplvwmx-mbcmogmq-hawgokf-folic 1 tab PO QAM 07/26/23 09/25/23 History acid 400 mcg-vit K1 20 mcg tablet (Women's 50 Plus Advanced) turmeric 400 mg capsule 0 mg PO QAM 07/26/23 09/25/23 History albuterol sulfate 2.5 mg/3 mL 2.5 mg continuous nebulization 09/25/23 09/25/23 History (0.083 %) solution for nebulization DIRECTED PRN Shortness Of Breath Or Wheezing diclofenac potassium 50 mg tablet 50 mg PO TID PRN Pain 09/25/23 09/25/23 History ipratropium bromide 21 mcg (0.03 2 spray intranasal BID 09/25/23 09/25/23 History %) nasal spray vitamin B complex 1 tab PO DAILY 09/25/23 09/25/23 History Past Med/Surg History Medical History Hypothermia URI (upper respiratory infection) Hypomagnesemia Dyspnea History of UTI Morbid obesity Asthma Hypothyroidism Hypertension Left-sided weakness DUNCAN (acute kidney injury) Brain TIA Diabetes Multiple sclerosis UTI (urinary tract infection) Sepsis Acute respiratory failure with hypoxia Osteoarthritis of knees, bilateral Sinusitis, acute Morbid obesity with BMI of 50.0-59.9, adult Tachy-rowena syndrome GERD (gastroesophageal reflux disease) Hypothyroidism Pancreatitis Thrombocytopenia Peripheral edema Septic shock Hypomagnesemia Fungal dermatitis Asthma Hypertension Diabetes Influenza A Pneumonia Multiple sclerosis Surgical History H/O tubal ligation H/O sinus surgery History of arthroscopic knee surgery Hx of tonsillectomy H/O: hysterectomy No pertinent past surgical history Family History Other Family history non-contributory Social History Smoking Status: Never smoker Second Hand Exposure: No; Do You Dip or Chew Tobacco: No; Hx Alcohol Use: No Hx Substance Use: No Preferred Language: Upper Sorbian Communication Ability: Effective Puppy Walker Required: No Beliefs That Will Affect Care: None marital status: Current Living Situation: Spouse Current Living Situation Comment: Spouse and granddaughter How many Children do You have: 2 Other Information That Helps Us Care for You: No Feels Safe at Home: Yes Safety Concerns: Feels Safe At This Time Diet: gluten free during the past year weight has: decreased > 10 lbs Assistive Devices: Wheelchair Review of Systems Review of Systems: As per HPI. Physical Exam Constitutional: WD/WN, vitals as above Eyes: PERRL, conjunctivae normal, anicteric sclerae Respiratory: Diffuse rhonchi on inhalation, no wheezing. Cardiovascular: RRR, no murmur, no edema Neurologic: PERRL, EOMI, accommodation nl, no face palsy, no dysarthria CN's II-XI intact bilaterally Strength in the upper extremities 5/5. Strength in the lower extremities 4/5 on the right and 3/5 on the left. Sensation intact at the upper extremities and lower extremities bilaterally. Psychiatric: A+Ox3, euthymic affect Results & Data Results & Data Vital Signs (Past 12 Hours) Vital Signs Temp Pulse Pulse Resp BP BP Pulse Ox 09/25/23 18:43 96 09/25/23 18:43 96 H 18 116/67 96 09/25/23 18:43 09/25/23 16:16 36 C L 101 H 20 101/69 96 O2 Del Method 09/25/23 18:43 09/25/23 18:43 09/25/23 18:43 Room Air 09/25/23 16:16 Room Air Supervising Physician Co-Signing Physician Notes Patient seen and examined, chart reviewed, case discussed with Dr. Chase and I agree with the assessment and plan as documented above. In brief, patient is a 68yo female with history of DM, HTN, GERD and MS presenting with weakness. Patient had a UTI several weeks ago and was treated with antibiotics. She has noted LLE weakness and tingling, buzzing sensation in legs and arms as well as difficulty ambulating. No additional complaints at this time. Denies PEREZ, visual change, difficulty with urination or BM In the ER she is afebrile, HD stable, NAD Skin - intact, no rash HEENT - NC/AT, PERRL, Neck supple Heart - +S1/S2, regular, no m/r/g Lungs - CTA, +rhonchi on exam Abd - +BS, soft, NT/ND Neuro - diminished strength in legs bilaterally, 3+ on LLE Labs and images reviewed Assessment/plan - suspect flare of MS resulting in LLE, RLE weakness -Will administer Solumedrol 1gm IV daily x 3 days -Neurology consultation appreciated -Remainder of plan as above Resident Activity Tracking Resident Involvement: Resident Care Provided Care Provided: Adult Hospital Medicine
--- NOTE | 2023-09-25 22:39 | Emergency Department Note ---
History of Present Illness General Chief complaint: Weakness Stated complaint: WEAKNESS, LEG PAIN Time Seen by Provider: 09/25/23 18:17 History of Present Illness Provider complaint: Weakness Maximum Pain Intensity: 7 68-year-old female with history of MS presents emergency department for weakness. Patient reports she is having an MS flare. Patient reports that today she started having weakness in her legs and tried to get up but fell landing on her buttocks. Family is there and stated she did not hit her head. Patient confirms this. No loss of consciousness. No pain. Patient states she is sure she is having a MS flare. Home Medications Medication Instructions Recorded Confirmed Type benazepril 40 mg tablet 40 mg PO QAM 06/25/21 09/25/23 History levothyroxine 25 mcg tablet 25 mcg PO DAILYBB 06/25/21 09/25/23 History metformin 500 mg tablet 500 mg PO BID 06/25/21 09/25/23 History omeprazole 20 mg capsule,delayed 20 mg PO PM 06/25/21 09/25/23 History release aspirin 81 mg tablet,delayed 81 mg PO QAM #30 tabs 08/16/21 09/25/23 Rx release atorvastatin 40 mg tablet 40 mg PO HS 07/20/23 09/25/23 History bumetanide 0.5 mg tablet 0.5 mg PO UD PRN fluid overload 07/20/23 09/25/23 History fluticasone 250 mcg-salmeterol 50 0 inh inhalation BID 07/20/23 09/25/23 History mcg/dose blistr powdr for inhalation amoxicillin 875 mg-potassium 0 tab PO BID 07/26/23 09/25/23 History clavulanate 125 mg tablet cholecalciferol (vitamin D3) 125 5,000 unit PO QAM 07/26/23 09/25/23 History mcg (5,000 unit) tablet docusate sodium 100 mg capsule 100 mg PO PM 07/26/23 09/25/23 History cnokayknbriy-bksnqduq-ihdnlrv-folic 1 tab PO QAM 07/26/23 09/25/23 History acid 400 mcg-vit K1 20 mcg tablet (Women's 50 Plus Advanced) turmeric 400 mg capsule 0 mg PO QAM 07/26/23 09/25/23 History albuterol sulfate 2.5 mg/3 mL 2.5 mg continuous nebulization 09/25/23 09/25/23 History (0.083 %) solution for nebulization DIRECTED PRN Shortness Of Breath Or Wheezing diclofenac potassium 50 mg tablet 50 mg PO TID PRN Pain 09/25/23 09/25/23 History ipratropium bromide 21 mcg (0.03 2 spray intranasal BID 09/25/23 09/25/23 History %) nasal spray vitamin B complex 1 tab PO DAILY 09/25/23 09/25/23 History Allergies Allergy/AdvReac Type Severity Reaction Status Date / Time montelukast [From Singulair] Allergy Mild Unknown Verified 09/25/23 22:10 Fish Containing Products Allergy Unknown Unknown Verified 09/25/23 22:10 shellfish derived Allergy Unknown Verified 09/25/23 22:10 codeine AdvReac Mild NAUSEATED Verified 09/25/23 22:10 Past Med/Surg History Medical History Hypothermia URI (upper respiratory infection) Hypomagnesemia Dyspnea History of UTI Morbid obesity Asthma Hypothyroidism Hypertension Left-sided weakness DUNCAN (acute kidney injury) Brain TIA Diabetes Multiple sclerosis UTI (urinary tract infection) Sepsis Acute respiratory failure with hypoxia Osteoarthritis of knees, bilateral Sinusitis, acute Morbid obesity with BMI of 50.0-59.9, adult Tachy-rowena syndrome GERD (gastroesophageal reflux disease) Hypothyroidism Pancreatitis Thrombocytopenia Peripheral edema Septic shock Hypomagnesemia Fungal dermatitis Asthma Hypertension Diabetes Influenza A Pneumonia Multiple sclerosis Surgical History H/O tubal ligation H/O sinus surgery History of arthroscopic knee surgery Hx of tonsillectomy H/O: hysterectomy No pertinent past surgical history Family History Other Family history non-contributory Social History Smoking Status: Never smoker Second Hand Exposure: No; Do You Dip or Chew Tobacco: No; Hx Alcohol Use: No Hx Substance Use: No Preferred Language: Serbian Communication Ability: Effective Tower Supervisor Required: No Beliefs That Will Affect Care: None marital status: Current Living Situation: Spouse and Family Current Living Situation Comment: and granddaughter How many Children do You have: 2 Feels Safe at Home: Yes Diet: gluten free during the past year weight has: decreased > 10 lbs Assistive Devices: Nebulizer, Scooter/Electric Scooter and Walker Physical Exam Vital Signs Vital Signs - 24 hr 09/25/23 16:16 09/25/23 18:43 09/25/23 18:43 Temperature 36 C L Temperature Source Temporal Artery Scan Pulse Rate 101 H Pulse Rate [Apical] 96 H Pulse Rhythm Regular Pulse Strength Normal Respiratory Rate 20 18 Respiratory Effort / Characteristics Non-Labored Spontaneous Respiratory Depth Normal Blood Pressure 101/69 Blood Pressure [Left Arm] 116/67 Blood Pressure Mean 79 Blood Pressure Mean [Left Arm] 83 Pulse Oximetry 96 96 Oxygen Delivery Method Room Air Room Air Sepsis Recent Fever Within 48 Hours No Sepsis New/Unexplained Change in Mental Status N/A Sepsis Action Taken by Nursing No Action Required 09/25/23 18:43 09/25/23 21:00 Temperature Temperature Source Pulse Rate Pulse Rate [Apical] 91 H Pulse Rhythm Pulse Strength Respiratory Rate 20 Respiratory Effort / Characteristics Respiratory Depth Blood Pressure Blood Pressure [Left Arm] 119/69 Blood Pressure Mean Blood Pressure Mean [Left Arm] 85 Pulse Oximetry 96 95 Oxygen Delivery Method Room Air Sepsis Recent Fever Within 48 Hours Sepsis New/Unexplained Change in Mental Status Sepsis Action Taken by Nursing Physical Exam HENT: Exam performed. -Head: Normocephalic and atraumatic. EYES: Conjunctivae and EOM are normal. Pupils are equal, round, and reactive to light. Right eye exhibits no discharge. Left eye exhibits no discharge. No scleral icterus. NECK: Normal range of motion. Neck supple. No JVD present. No spinous process tenderness present. CV: Normal rate, regular rhythm, normal heart sounds and intact distal pulses. There is no peripheral edema. Palpable radial pulses bue. PULM/CHEST: Effort normal and breath sounds normal. No respiratory distress. No stridor. She has no wheezes. She has no rales. ABD: The abdomen is soft and obese. There is no tenderness. There is no rebound, no guarding. MUSC/SKEL: Pelvis stable. NEURO: Alert and oriented x 3. No cranial nerve deficits. Mild weakness of the bilateral lower extremities. No weakness of the upper extremities. Course Course 1816: The patient was evaluated in room A11B. A complete history and physical exam was performed Cardiac monitoring: An order was placed for continuous cardiac monitoring. The monitor shows a rate of 90 with sinus rhythm interpreted by me 2000: Vital signs stable. Labs are significant for a lactate of 2.1. Magnesium 1.5. Magnesium repletion started in the emergency department. Patient was given Solu-Medrol for MS flare. Chest x-ray shows no acute change. Patient will be admitted to the [facility] team for her MS flare and magnesium repletion. Discussed case with Dr. Butterfield. Administered Medications Discontinued Medications Magnesium Sulfate/Dextrose (Magnesium Sulfate / D5w) 1 gm in 100 mls @ 100 mls/hr IV Q1H [facility] Stop: 09/25/23 21:59 Last Infusion: 09/25/23 22:25 Dose: Infused Documented By: Admin: 09/25/23 21:24 Dose: 100 mls/hr Documented By: Infusion: 09/25/23 21:20 Dose: Infused Documented By: Admin: 09/25/23 20:20 Dose: 100 mls/hr Documented By: SKIP Methylprednisolone (Methylprednisolone 125 Mg/2 Ml Vial) 125 mg IV NOW STA Stop: 09/25/23 20:01 Last Admin: 09/25/23 20:19 Dose: 125 mg Documented By: SKIP Medical Decision Making Laboratory Data Attestation: I reviewed the patient's lab results. 09/25/23 18:55 09/25/23 18:55 Lab Results 09/25/23 09/25/23 09/25/23 Range/Units 16:35 18:55 20:09 WBC Cancelled 10.55 RBC Cancelled 3.29 L Hgb Cancelled 10.3 L Hct Cancelled 32.5 L MCV Cancelled 98.8 MCH Cancelled 31.3 MCHC Cancelled 31.7 L RDW Std Deviation Cancelled 59.9 H RDW Coeff of Kaia Cancelled 16.9 H Plt Count Cancelled 111 L MPV Cancelled 12.6 H Immature Gran % (Auto) Cancelled 0.3 Neut % (Auto) Cancelled 73.6 Lymph % (Auto) Cancelled 17.2 Beckham % (Auto) Cancelled 6.7 Eos % (Auto) Cancelled 2.0 Baso % (Auto) Cancelled 0.2 Neut # (Auto) Cancelled 7.77 H Lymph # (Auto) Cancelled 1.81 Beckham # (Auto) Cancelled 0.71 H Eos # (Auto) Cancelled 0.21 Baso # (Auto) Cancelled 0.02 Immature Gran # (Auto) Cancelled 0.03 Absolute Nucleated RBC Cancelled Nucleated RBC % (auto) Cancelled Neutrophils % (Manual) Cancelled Band Neutrophils % Cancelled Lymphocytes % (Manual) Cancelled Prolymphocyte % Cancelled Reactive Lymphs % (Man) Cancelled Monocytes % (Manual) Cancelled Eosinophils % (Manual) Cancelled Basophils % (Manual) Cancelled Metamyelocytes % (Man) Cancelled Myelocytes % (Man) Cancelled Promyelocytes % (Man) Cancelled Blast Cells % (Manual) Cancelled Plasma Cell % (Manual) Cancelled Other Cells % Cancelled Nucleated RBC % Cancelled Neutrophils # (Manual) Cancelled Band Neutrophils # Cancelled Total Absolute Neuts Cancelled Lymphocytes # (Manual) Cancelled Prolymphocyte # Cancelled Reactive Lymphs # Cancelled Total Abs Lymphocytes Cancelled Monocytes # (Manual) Cancelled Eosinophils # (Manual) Cancelled Basophils # (Manual) Cancelled Metamyelocytes # (Man) Cancelled Myelocytes # (Manual) Cancelled Promyelocytes # (Man) Cancelled Blast Cells # (Man) Cancelled Plasma Cell # (Manual) Cancelled Other Cells # Cancelled Nucleated RBCs # (Man) Cancelled Hypersegmented Neuts Cancelled Hyposegmented Neuts Cancelled Hypogranular Neuts Cancelled Large Granular Lymphs Cancelled # Lrg Granular Lymphs Cancelled Hairy Cells Cancelled Smudge Cells Cancelled Toxic Granulation Cancelled Toxic Vacuolation Cancelled Dohle Bodies Cancelled Shaylee Rods Cancelled Platelet Estimate Cancelled Hypogranular Platelets Cancelled Giant Platelets Cancelled Platelet Satelliting Cancelled RBC Morphology Cancelled Polychromasia Cancelled Hypochromasia Cancelled Poikilocytosis Cancelled Basophilic Stippling Cancelled Anisocytosis Cancelled Microcytosis Cancelled Macrocytosis Cancelled Spherocytes Cancelled Pappenheimer Bodies Cancelled Sickle Cells Cancelled Target Cells Cancelled Tear Drop Cells Cancelled Ovalocytes Cancelled Stomatocytes Cancelled [employer] Bodies Cancelled Echinocytes Cancelled Acanthocytes (Spur) Cancelled Rouleaux Cancelled RBC Agglutinates Cancelled Schistocytes Cancelled Sezary Cell Cancelled PT 10.9 (9.0-12.0) Seconds INR 1.0 (0.9-1.1) APTT 28 (21-31) Seconds PTT Ratio 1.0 VBG pH 7.36 (7.36-7.41) VBG pCO2 45 (38-50) mmHg VBG pO2 35 mmHg VBG HCO3 25 mmol/L VBG O2 Saturation 60.1 % VBG Base Excess -0.4 mEq/L Sodium Cancelled 144 Potassium Cancelled 4.4 Chloride Cancelled 110 H Carbon Dioxide Cancelled 24 Anion Gap Cancelled 10 BUN Cancelled 33 H Creatinine Cancelled 1.01 Est Cr Clr Drug Dosing Cancelled Not Reportable Est GFR ( Amer) Cancelled 65.8 Est GFR (Non-Af Amer) Cancelled 56.8 BUN/Creatinine Ratio Cancelled 32.7 H Glucose Cancelled 105 H Lactate 2.1 H* (0.4-2.0) mmol/L Calcium Cancelled 10.1 Magnesium 1.5 L (1.7-2.4) mg/dl Total Bilirubin Cancelled 0.3 AST Cancelled 32 ALT Cancelled 30 Alkaline Phosphatase Cancelled 101 Troponin I High Sens 4.9 (0-14) pg/ml Total Protein Cancelled 7.2 Albumin Cancelled 3.9 Globulin Cancelled 3.3 Albumin/Globulin Ratio Cancelled 1.2 Procalcitonin 0.08 (0-0.5) ng/ml Blood Parasites ID Cancelled 09/25/23 Range/Units 21:40 WBC RBC Hgb Hct MCV MCH MCHC RDW Std Deviation RDW Coeff of Kaia Plt Count MPV Immature Gran % (Auto) Neut % (Auto) Lymph % (Auto) Beckham % (Auto) Eos % (Auto) Baso % (Auto) Neut # (Auto) Lymph # (Auto) Beckham # (Auto) Eos # (Auto) Baso # (Auto) Immature Gran # (Auto) Absolute Nucleated RBC Nucleated RBC % (auto) Neutrophils % (Manual) Band Neutrophils % Lymphocytes % (Manual) Prolymphocyte % Reactive Lymphs % (Man) Monocytes % (Manual) Eosinophils % (Manual) Basophils % (Manual) Metamyelocytes % (Man) Myelocytes % (Man) Promyelocytes % (Man) Blast Cells % (Manual) Plasma Cell % (Manual) Other Cells % Nucleated RBC % Neutrophils # (Manual) Band Neutrophils # Total Absolute Neuts Lymphocytes # (Manual) Prolymphocyte # Reactive Lymphs # Total Abs Lymphocytes Monocytes # (Manual) Eosinophils # (Manual) Basophils # (Manual) Metamyelocytes # (Man) Myelocytes # (Manual) Promyelocytes # (Man) Blast Cells # (Man) Plasma Cell # (Manual) Other Cells # Nucleated RBCs # (Man) Hypersegmented Neuts Hyposegmented Neuts Hypogranular Neuts Large Granular Lymphs # Lrg Granular Lymphs Hairy Cells Smudge Cells Toxic Granulation Toxic Vacuolation Dohle Bodies Shaylee Rods Platelet Estimate Hypogranular Platelets Giant Platelets Platelet Satelliting RBC Morphology Polychromasia Hypochromasia Poikilocytosis Basophilic Stippling Anisocytosis Microcytosis Macrocytosis Spherocytes Pappenheimer Bodies Sickle Cells Target Cells Tear Drop Cells Ovalocytes Stomatocytes [employer] Bodies Echinocytes Acanthocytes (Spur) Rouleaux RBC Agglutinates Schistocytes Sezary Cell PT (9.0-12.0) Seconds INR (0.9-1.1) APTT (21-31) Seconds PTT Ratio VBG pH (7.36-7.41) VBG pCO2 (38-50) mmHg VBG pO2 mmHg VBG HCO3 mmol/L VBG O2 Saturation % VBG Base Excess mEq/L Sodium Potassium Chloride Carbon Dioxide Anion Gap BUN Creatinine Est Cr Clr Drug Dosing Est GFR ( Amer) Est GFR (Non-Af Amer) BUN/Creatinine Ratio Glucose Lactate 1.4 (0.4-2.0) mmol/L Calcium Magnesium (1.7-2.4) mg/dl Total Bilirubin AST ALT Alkaline Phosphatase Troponin I High Sens (0-14) pg/ml Total Protein Albumin Globulin Albumin/Globulin Ratio Procalcitonin (0-0.5) ng/ml Blood Parasites ID Imaging Data Attestation: I personally reviewed and interpreted this imaging study as follows: My Impression: No significant change from the chest x-ray in August 19, 2023. ECG Data Attestation: I personally reviewed and interpreted this ECG as follows: Rate (beats per minute): 98 Rhythm: + normal sinus ECG Intervals/blocks: + Normal QRS, + Normal ND and + Normal QT-c ECG ST segments: + Normal ST segments [facility] Narrative 1816: The patient was evaluated in room A11B. A complete history and physical exam was performed Cardiac monitoring: An order was placed for continuous cardiac monitoring. The monitor shows a rate of 90 with sinus rhythm interpreted by me 2000: Vital signs stable. Labs are significant for a lactate of 2.1. Magnesium 1.5. Magnesium repletion started in the emergency department. Patient was given Solu-Medrol for MS flare. Chest x-ray shows no acute change. Patient will be admitted to the [facility] hospitalist team for her MS flare and magnesium repletion. Discussed case with Dr. Butterfield. Impression & Plan Multiple sclerosis, Hypomagnesemia Discharge Plan Visit Data Chief Complaint: Weakness Stated Complaint: WEAKNESS, LEG PAIN ED Provider: Harpal Valencia Discharge Problem: Multiple sclerosis, Hypomagnesemia Patient Disposition: Being Evaluated by Hospitalist Forms Stand Alone Forms: My [facility] Prescriptions Prescriptions: No Action metformin 500 mg tablet 500 mg PO BID levothyroxine 25 mcg tablet 25 mcg PO DAILYBB omeprazole 20 mg capsule,delayed release(DR/EC) 20 mg PO PM benazepril 40 mg tablet 40 mg PO QAM aspirin 81 mg Tablet,Delayed Release (Dr/Ec) 81 mg PO QAM Qty: 30 0RF atorvastatin 40 mg tablet 40 mg PO HS fluticasone propion-salmeterol 250-50 mcg/dose blister with device 0 inh INHALATION BID Rx Instructions: Unable to verify this medication with patient/caregiver at this date/time. Was able to verify that it was picked up by Pharmacy. Original Directions: 1 inhalation twice daily bumetanide 0.5 mg tablet 0.5 mg PO UD PRN (Reason: fluid overload ) Rx Instructions: TAKE 1 TABLET BY MOUTH EVERY DAY, WITH 2ND DOSE IN EVENING DIRECTED FOR FLUID OVERLOAD docusate sodium 100 mg capsule 100 mg PO PM cholecalciferol (vitamin D3) 125 mcg (5,000 unit) tablet 5,000 unit PO QAM Women's 50 Plus Advanced 400-20 mcg Tablet 1 tab PO QAM turmeric 400 mg Capsule 0 mg PO QAM Rx Instructions: Unable to verify strength of OTC medication with patient/caregiver at this date/time. amoxicillin-pot clavulanate 875-125 mg tablet 0 tab PO BID Rx Instructions: Unable to verify this medication with patient/caregiver at this date/time. Was able to verify that it was picked up by Pharmacy. Original Directions: 1 tablet by mouth twice daily. Start Date 07/24/23 - End Date 07/29/23. albuterol sulfate 2.5 mg /3 mL (0.083 %) solution for nebulization 2.5 mg continuous nebulization DIRECTED PRN (Reason: Shortness Of Breath Or Wheezing) diclofenac potassium 50 mg tablet 50 mg PO TID PRN (Reason: Pain) vitamin B complex Tablet 1 tab PO DAILY ipratropium bromide 21 mcg (0.03 %) spray,non-aerosol 2 spray INTRANASAL BID Referrals Referrals: Rhona Canales [Primary Care Provider] -
[2023-09-25] MEDS ORDERED: POLYETHYLENE (MIRALAX) 17 GM PACK PO PRN (23:48)
[2023-09-25] MEDS ORDERED: ONDANSETRON INJ 2 MG/ML 2 ML VIAL IV PRN (23:48)
[2023-09-25] MEDS ORDERED: GLUCOSE 40% GEL 15 GM TUBE PO PRN (23:48)
[2023-09-25] MEDS ORDERED: GLUCAGON FOR INJ 1 MG VIAL SQ PRN (23:48)
[2023-09-25] MEDS ORDERED: CARBOHYDRATES FOR HYPOGLYCEMIA PO PRN (23:48)
[2023-09-25] MEDS ORDERED: DEXTROSE 50% 50 ML SYRINGE IV PRN (23:48)
[2023-09-25] MEDS ORDERED: GLUCOSE 10 TAB/TUBE PO PRN (23:48)
[2023-09-26] LABS: Influenza A virus by PCR Negative (Neg); Influenza B virus by PCR Negative (Neg); RSV by PCR Negative (Neg); SARS CoV2 RNA(COVID-19) Ceph NEGATIVE (Negative)
[2023-09-26] MEDS: Patient's HEIGHT &/or WEIGHT Needed ONE (02:01)
--- NOTE | 2023-09-26 02:04 | Billing Data ---
Date of Service September 25, 2023 Coding Level of Care Code 95700 INT INP/OBS CARE
[2023-09-26 04:49] LABS: Basophils # (auto) 0.02 K/uL (0.00-0.20); Basophils % (auto) 0.2 %; Eosinophils # (auto) 0.01 K/uL (0.00-0.50); Eosinophils % (auto) 0.1 %; Hematocrit (blood only) 33.7 % (37.0-47.0); Hemoglobin 10.5 g/dl (12.0-16.0); Immature Granulocytes # (auto) 0.05 K/uL (0.01-0.20); Immature Granulocytes % (auto) 0.6 %; Lymphocytes % (auto) 13.2 %; Mean Corpuscular Hemoglobin 30.6 pg (25.0-34.0); Mean Corpuscular Hgb Conc 31.2 g/dL (32.0-36.0); Mean Corpuscular Volume 98.3 fL (80.0-100.0); Mean Platelet Volume 12.7 fL (9.4-12.4); Monocytes # (auto) 0.05 K/uL (0.11-0.59); Monocytes % (auto) 0.6 %; Neutrophils # (auto) 7.13 K/uL (1.40-6.50); Neutrophils % (auto) 85.3 %; Platelet Count 105 K/uL (130-400); RDW Coefficient of Variation 16.5 % (11.5-14.5); RDW Standard Deviation 59.5 fL (36.4-46.3); Red Blood Count 3.43 M/uL (4.20-5.40); White Blood Count 8.36 K/ul (4.8-10.8)
[2023-09-26 05:00] LABS: Calcium 9.8 mg/dl (8.6-10.3); Creatinine Clr Calc Pharmacy 59.1 ml/min; Est GFR (African American) 66.6 ml/min; Est GFR (Non-African American) 57.4 ml/min; Magnesium 1.8 mg/dl (1.7-2.4); Potassium 4.3 mmol/L (3.5-5.1)
[2023-09-26] MEDS: LEVOTHYROXINE SODIUM 25 MCG TABLET PO SCH (06:36)
--- NOTE | 2023-09-26 06:45 | XRay Report ---
XR chest 1V portable HISTORY: 68 years-old Female Sepsis acute sepsis COMPARISON: 08/19/2023 TECHNIQUE: AP view of the chest FINDINGS: Cardiac silhouette is enlarged. Atherosclerosis of the aorta. Mild linear subsegmental bibasilar atel ectasis. No pneumothorax, pleural effusion or pulmonary edema. Bones appear grossly intact. IMPRESSION: 1. Cardiomegaly without acute process. 2. Mild bibasilar atelectasis. ACT 112: Negative or not required by law. The above report was generated using voice recognition software. It may contain grammatical, syntax o r spelling errors. Electronically signed by: Pedro Lucas M.D. 09/26/2023 6:44 AM
[2023-09-26] MEDS: guaiFENesin 600 MG TABCR PO SCH (08:28)
[2023-09-26] MEDS: ENOXAPARIN INJ 40 MG/0.4 ML SYR SQ SCH (08:28)
[2023-09-26] MEDS: ASPIRIN 81 MG ECTAB PO SCH (08:28)
[2023-09-26] MEDS: ENALAPRIL MALEATE 10 MG TAB PO SCH (08:28)
[2023-09-26] MEDS: IPRATROPIUM BROMIDE NASAL SPRAY 0.06% 15ML NAE SCH (08:29)
[2023-09-26] MEDS: FLUTICASONE/VILANTEROL 200/25MCG 14 PUFFS/INHALER INH SCH (08:29)
[2023-09-26] MEDS: methylPREDNISolone 1,000 MG in DEXTROSE 5% 250 ML IV SCH (09:34)
[2023-09-26] MEDS: LANTUS PER UNIT CHARGE SQ SCH (09:52)
[2023-09-26] MEDS: INSULIN ASPART PER UNIT CHARGE SC SCH (09:52)
--- NOTE | 2023-09-26 10:00 | Neurology Consultation ---
Date of Consultation September 26, 2023 Assessment & Plan (1) Multiple sclerosis: History of Present Illness Attending Physician: Armando Brush DO History of Present Illness pt this morning feeling better. less coughing. weakness little better. no new changes. chart reviewed. mri brain recently shows MS lesions (no BENI given). pt on steroid currently. labs stable. admission HpI: Dali is a 68-year-old female with past medical history of multiple sclerosis, type 2 diabetes, hypertension, allergic asthma, weight disorder, hypothyroidism coming in to the ER for weakness. Patient was previously hospitalized from July 20 to July 22 for acute UTI possible sepsis and enterorhinovirus. She was then readmitted from July 26 until July 28 for acute asthma exacerbation. On discharge at that time she went home with DuoNebs, Mucinex, prednisone taper. She was also treated with Augmentin for UTI during the previous admission. She is wheelchair-bound at baseline. She had follow-up with her primary care office on September 01 with subjectively feeling better. Her [facility] home health had called primary care office to let them know that patient was seen the morning of September 17 coughing up green phlegm along with crackles in the lungs and seeming congested. The patient was using Mucinex inhalers and trying to cough things up. Her oxygen saturation at that time was 97% on room air without any fevers, chills, shortness of breath. A chest x-ray was ordered earlier today by primary care office and patient was told to go to the ER if things should worsen. Patient states that she was at her baseline for upper respiratory symptoms essentially unchanged from discharge at the last hospitalization. She was also at her baseline ambulation up until about 3 days ago. Her baseline ambulation consisted of being able to walk at least 4 steps to use the bathroom. However a few days ago she started to experience increased weakness in the legs as well as a buzzing sensation that would come for her legs or her arms or both. She says the buzzing sensation is hard to describe however it is like a momentary shocking pain. She denies any new fevers, chills, nausea, vomiting, shortness of breath, diarrhea, dysuria, urinary frequency, or other urinary symptoms. In the ER her CBC was unremarkable compared to prior CBC with decrease in the white blood cell count and neutrophil count. VBG unremarkable, CMP only remarkable for magnesium of 1.5. Lactate was mildly elevated at 2.1. Chest x- ray in the ER looked unchanged from previous x-ray from when she was discharged at the last hospitalization, no evidence of consolidation. She was given 125mg Solu-medrol. Allergies Allergy/AdvReac Type Severity Reaction Status Date / Time montelukast [From [facility]] Allergy Mild Unknown Verified 09/25/23 22:10 Fish Containing Products Allergy Unknown Unknown Verified 09/25/23 22:10 shellfish derived Allergy Unknown Verified 09/25/23 22:10 codeine AdvReac Mild NAUSEATED Verified 09/25/23 22:10 Home Medications Medication Instructions Recorded Confirmed Type benazepril 40 mg tablet 40 mg PO QAM 06/25/21 09/25/23 History levothyroxine 25 mcg tablet 25 mcg PO DAILYBB 06/25/21 09/25/23 History metformin 500 mg tablet 500 mg PO BID 06/25/21 09/25/23 History omeprazole 20 mg capsule,delayed 20 mg PO PM 06/25/21 09/25/23 History release aspirin 81 mg tablet,delayed 81 mg PO QAM #30 tabs 08/16/21 09/25/23 Rx release atorvastatin 40 mg tablet 40 mg PO HS 07/20/23 09/25/23 History bumetanide 0.5 mg tablet 0.5 mg PO UD PRN fluid overload 07/20/23 09/25/23 History fluticasone 250 mcg-salmeterol 50 0 inh inhalation BID 07/20/23 09/25/23 History mcg/dose blistr powdr for inhalation amoxicillin 875 mg-potassium 0 tab PO BID 07/26/23 09/25/23 History clavulanate 125 mg tablet cholecalciferol (vitamin D3) 125 5,000 unit PO QAM 07/26/23 09/25/23 History mcg (5,000 unit) tablet docusate sodium 100 mg capsule 100 mg PO PM 07/26/23 09/25/23 History gpjerrotirhv-zvnrkbdn-gzaiirj-folic 1 tab PO QAM 07/26/23 09/25/23 History acid 400 mcg-vit K1 20 mcg tablet (Women's 50 Plus Advanced) turmeric 400 mg capsule 0 mg PO QAM 07/26/23 09/25/23 History albuterol sulfate 2.5 mg/3 mL 2.5 mg continuous nebulization 09/25/23 09/25/23 History (0.083 %) solution for nebulization DIRECTED PRN Shortness Of Breath Or Wheezing diclofenac potassium 50 mg tablet 50 mg PO TID PRN Pain 09/25/23 09/25/23 History ipratropium bromide 21 mcg (0.03 2 spray intranasal BID 09/25/23 09/25/23 History %) nasal spray vitamin B complex 1 tab PO DAILY 09/25/23 09/25/23 History Patient History Medical History Hypothermia URI (upper respiratory infection) Hypomagnesemia Dyspnea History of UTI Morbid obesity Asthma Hypothyroidism Hypertension Left-sided weakness DUNCAN (acute kidney injury) Brain TIA Diabetes Multiple sclerosis UTI (urinary tract infection) Sepsis Acute respiratory failure with hypoxia Osteoarthritis of knees, bilateral Sinusitis, acute Morbid obesity with BMI of 50.0-59.9, adult Tachy-rowena syndrome GERD (gastroesophageal reflux disease) Hypothyroidism Pancreatitis Thrombocytopenia Peripheral edema Septic shock Hypomagnesemia Fungal dermatitis Asthma Hypertension Diabetes Influenza A Pneumonia Multiple sclerosis Surgical History H/O tubal ligation H/O sinus surgery History of arthroscopic knee surgery Hx of tonsillectomy H/O: hysterectomy No pertinent past surgical history Family History Other Family history non-contributory Social History Smoking Status: Never smoker Second Hand Exposure: No; Do You Dip or Chew Tobacco: No; Hx Alcohol Use: No Hx Substance Use: No Preferred Language: Italian Communication Ability: Effective Fitting Room Associate Required: No Beliefs That Will Affect Care: None marital status: Current Living Situation: Spouse Current Living Situation Comment: Spouse and granddaughter How many Children do You have: 2 Other Information That Helps Us Care for You: No Feels Safe at Home: Yes Safety Concerns: Feels Safe At This Time Diet: gluten free during the past year weight has: decreased > 10 lbs Assistive Devices: Wheelchair Exam (Neuro) Physical Exam: HEENT: normocephalic Neuro: Mental: AOx4, fluent speech, normal comprehension, no apraxia, no L/R confusion, no neglect CN: PERRL, Full EOM, symmetric face, intact sensation t/o face, midline T/U/P, 5/5 SCM/traps. Motor: No abnormal movements, normal tone and bulk, 5-/5 t/o bilaterally upper limbs, 4-/5 t/o lower ext. slight increase tone b/l upper limbs. Sens: intact to touch b/l grossly Coord: intact FNT b/l DTR: 2+ sym b/l Gait:deferred. Impression: 68 yo female with likely secondary Progressive MS with generalized weakness likely from recent infections and recovering. Recommendations: ok with 3 days steroid does need to be on DMT for MS, will discuss this when pt f/u as outpt. pt would like to f/u with [facility] neurology, please have pt call our clininc for routine appt once discharged. close monitoring for infection. call again if new question. Chart reviewed I have spent more than 50% educating patient about potential diagnosis and neurological evaluation and coordinating care with patient's treatment team. Total time spent (including chart review and coordination of care): 60 min (this includes chart review). Results & Data Vital Signs (Past 12 Hours) Vital Signs Temp Pulse Pulse Resp BP BP Pulse Ox 09/26/23 08:25 36.8 C 90 18 114/81 93 09/26/23 07:38 90 09/26/23 03:01 96 H 23 160/91 H 93 09/26/23 02:10 85 16 138/85 93 09/26/23 01:50 09/26/23 01:39 91 H 09/25/23 23:00 74 16 118/59 L 91 O2 Del Method 09/26/23 08:25 Room Air 09/26/23 07:38 09/26/23 03:01 Room Air 09/26/23 02:10 Room Air 09/26/23 01:50 Room Air 09/26/23 01:39 09/25/23 23:00 Room Air PG Care Time/CCT Total # of Minutes Spent Total Time Spent with Patient: Total time spent is greater than 50% in coordination of care (as documented) at patient's floor/unit and/or counseling patient: Coding Level of Care Code 69434 IN/OBS CONSULT LVL 4,60M Diagnoses Multiple sclerosis G35
[2023-09-26] MEDS: ALBUTEROL 0.083% NEBU SOLN 3 ML VIAL NEB PRN (11:04)
--- NOTE | 2023-09-26 16:03 | Hospitalist Progress Note ---
Date of Service September 26, 2023 Assessment & Plan (1) Generalized muscle weakness: (2) Multiple sclerosis: (3) Hypomagnesemia: (4) Asthma: (5) Hypothyroidism: (6) Hypertension: (7) Diabetes: Plan Generalized muscle weakness, MS flare: - LE weakness consistent with MS flare-up - IV methylprednisolone x3 days - Neurology consulted, in agreement, appreciate any further recs - Patient will need outpatient neurology follow up for long-term DMT Hypomagnesemia: -Magnesium 1.5 on admission, repleted 2gm -Recheck mag in AM. Asthma: -Will continue home nebulized albuterol q6h PRN, mucinex, flutter valve, ipratropium intranasal. Hypothyroidism: -Continue home levothyroxine Hypertension: -continue home benazepril. Diabetes: -Hold home oral medications. -SSI, ACHS checks. -Lantus 19U BID. Plan F/E/N/GI: T2DM carb consistent DVT Prophylaxis: Lovenox 40mg q12h. Code status: Full code Dispo: PT/OT eval and treat Admission and Anticipated Discharge Date Admission Date: September 25, 2023 Supervising Physician Co-Signing Physician Notes I personally examined the patient and verified all ray points of history and exam, discussed case, and agree with decision making with Dr Donny Aguirre. Vitals noted, in general she is awake and alert pleasant no distress. HEENT normocephalic atraumatic mucous membranes moist. Breathing unlabored no accessory muscle use good effort. Skin shows no rashes no pallor or icterus. weaknessmultifactorial between MS flare and deconditioning, morbid obesity with BMI of 46.5 likely contributing to weakness from deconditioning - Solu-Medrol, PT/OT eval and treat, likely will need some sort of rehab, obviously will need outpatient neurology follow-up for more intensive management of MS after discharge. DVT prophylaxis with Lovenox Subjective Pt evaluated at bedside, indicates that she has had significant LE weakness that has progressed over the past few days. Minimal ambulation at baseline but now unable to weightbear. Denies changes in vision, eye pain, or difficulty with extraocular movements. H/O MS, sx consistent with prior flares. Lost to follow up with previous neurologist, not on DMT. Review of Systems Review of Systems: as per HPI Physical Exam Physical Exam: General: Alert and oriented. No acute distress Cardiac: Regular rate and rhythm, no murmurs appreciated Respiratory: Lungs clear to auscultation bilaterally, No increased work of breathing Abdominal: Soft, non-tender, non-distended. Bowel sounds present. Neuro: CN II-XII grossly intact, UE 5/5 strength bilaterally, LE 2/5 strength bilaterally in hip flexion Results & Data Results & Data Vital Signs (Past 12 Hours) Vital Signs Temp Pulse Pulse Pulse Resp BP Pulse Ox 09/26/23 15:05 36.3 C L 87 16 136/73 91 09/26/23 15:01 09/26/23 11:05 93 H 20 93 09/26/23 08:25 36.8 C 90 18 114/81 93 09/26/23 07:38 90 09/26/23 07:30 Pulse Ox Pulse Ox O2 Del Method O2 Flow Rate O2 Flow Rate 09/26/23 15:05 Room Air 09/26/23 15:01 91 90 0 0 09/26/23 11:05 Room Air 09/26/23 08:25 Room Air 09/26/23 07:38 09/26/23 07:30 Room Air Resident Activity Tracking Resident Involvement: Resident Care Provided Care Provided: Adult Hospital Medicine
[2023-09-26] MEDS: MICONAZOLE NITRATE POWDER 85 GM EXT PRN (16:22)
--- NOTE | 2023-09-26 18:35 | Billing Data ---
Date of Service September 26, 2023 Coding Level of Care Code 77534 SUB INP/OBS CARE MIN
[2023-09-26] MEDS: PANTOprazole 40 MG TAB PO SCH (22:03)
[2023-09-26] MEDS: ATORVASTATIN 40 MG TAB PO SCH (22:03)
--- OUTSIDE RECORDS SUMMARY | 2023-09-26 23:32 | External Medical Summary | Continuity of Care Document ---
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 out in the driveway with no idea how she got there in the middle of the night. Assessment and Plan Extracted from: Title:follow up Author:RAY Canales Tara Date:08/19/23 1.HTN (hypertension) Acute/Chronic: chronic Goal:Resolution/ control Status:stable/controlled Data: records/pt report Plan:bp well controlled. Contd on present regimen. 2.Allergic asthma Acute/Chronic: chronic Goal:Resolution/ control Status:stable/controlled Data: records/pt report Plan:Has wheezing. Will check CXR. Increase use of neb to 3-4 times a day. O2 sat is acceptable. If not pneumonia will give short hugh of steroids. 3.Allergic rhinitis Acute/Chronic: chronic Goal:Resolution/ control Status:stable/controlled Data: records/pt report Plan:Revewed her nasal sprays. time spent reviewing chart, face to face visit, ordersand documentation: 42 min Immunizations Given and Recorded Vaccine Date Status Refusal Reason zoster vaccine, inactivated 10/3/23 Recorded zoster vaccine, inactivated 07/17/19 Recorded zoster [...] 4Result Comment: 2021-08-20: Historical information-source unspecified Medications albuterol 0.083% for nebulization Start: 04/24/22 16:50:00 EDT, 3 mL, inhaled, tid, Disp# 810 mL, Refills: 3, PRN: as needed for wheezing, Pharmacy: [facility]/pharmacy #[id number] Start Date: 04/24/22 Status: Ordered aspirin Start: 11/28/22 13:37:00 EDT, 81 mg =, PO, Daily Start Date: 11/28/22 Status: Ordered atorvastatin 40 mg oral tablet Start: 03/12/23 12:20:00 EDT, 1 tab, PO, qhs, Disp# 90 tab, Refills: 3, Pharmacy: [facility]/pharmacy #[id number] Start Date: 03/12/23 Status: Ordered Atrovent 21 mcg/inh nasal spray Start: 08/19/23 14:13:00 EST, 2 spray, intranasal, bid, Disp# 3 each, Refills: 3, Note to Pharmacy:0.03% intranasal solution, Pharmacy: [facility]/pharmacy #[id number] Start Date: 08/19/23 Status: Ordered benazepril 40 mg oral tablet Start: 03/12/23 12:19:00 EDT, See Instructions, Disp# 90 tab, Refills: 3, TAKE 1 TABLET BY MOUTH ONCE DAILY, [id number] Start Date: 03/12/23 Status: Ordered bumetanide 0.5 mg oral tablet Start: 03/12/23 12:19:00 EDT, See Instructions, Disp# 45 tab, Refills: 11, TAKE 1 TABLET BY MOUTH EVERY DAY, WITH 2ND DOSE IN EVENING DIRECTED FOR FLUID OVERLOAD, [id number] Start Date: 03/12/23 Status: Ordered diclofenac potassium 50 mg oral tablet Start: 03/27/23 14:01:00 EDT, 1 tab, PO, tid, Disp# 270 tab, Refills: 3, PRN: as needed for pain, [id number] Start Date: 03/27/23 Status: Ordered diclofenac sodium 1% topical cream Start: 07/23/23 11:28:00 EST Start Date: 07/23/23 Status: Ordered fluticasone 50 mcg/inh nasal spray Start: 08/19/23 14:12:00 EST, 2 spray, each nostril, Daily, Disp# 16 g, Refills: 11, Pharmacy: [facility]/pharmacy #[id number] Start Date: 08/19/23 Status: Ordered levothyroxine 25 mcg (0.025 mg) oral tablet Start: 05/12/23 16:27:00 EDT, 1 tab, PO, Daily, Disp# 90 tab, Refills: 3, Pharmacy: [facility] [id number] Start Date: 05/12/23 Status: Ordered LORazepam 1 mg oral tablet Start: 03/14/23 16:49:00 EDT, 0.5 tab, PO, tid, Disp# 45 tab, Refills: 3, PRN: as needed for anxiety, Pharmacy: [facility]/pharmacy #[id number] Start Date: 03/14/23 Status: Ordered magnesium oxide 400 mg (241.3 mg elemental magnesium) oral tablet Start: 07/23/23 11:29:00 EST, 1 tab, PO, Daily Start Date: 07/23/23 Status: Ordered metFORMIN 500 mg oral tablet Start: 04/09/23 19:19:00 EDT, 1 tab, PO, bid, Disp# 180 tab, Refills: 3, Pharmacy: [facility]/pharmacy #[id number] Start Date: 04/09/23 Status: Ordered miconazole 2% topical powder Start: 07/23/23 11:26:00 EST, 1 appl, topical, bid Start Date: 07/23/23 Status: Ordered nystatin 100,000 units/g topical powder Start: 07/23/23 11:27:00 EST Start Date: 07/23/23 Status: Ordered nystatin 100,000 units/g topical powder Start: 09/25/22 16:09:00 EDT, See Instructions, Disp# 30 g, Refills: 6, Apply sparing to area underbreasts bid, Pharmacy: [facility]/pharmacy #[id number] Start Date: 09/25/22 Status: Ordered nystatin-triamcinolone 100,000 units/g-0.1% topical cream Start: 01/30/22 11:47:00 EDT, 1 appl, topical, bid, Disp# 60 g, Refills: 1, to area to affected area as directed, Pharmacy: [facility]/pharmacy #[id number] Start Date: 01/30/22 Stop Date: 02/27/22 Status: Ordered omeprazole 20 mg oral delayed release capsule Start: 04/09/23 19:19:00 EDT, See Instructions, Disp# 90 cap, Refills: 3, TAKE 1 CAPSULE BY MOUTH EVERY DAY, Pharmacy: [facility]/pharmacy #[id number] Start Date: 04/09/23 Status: Ordered ONE TOUCH ULTRA BLUE TEST STRP Start: 07/21/23 16:30:00 EST, ONE TOUCH ULTRA BLUE TEST STRP, See Instructions, Disp# 50 strip, Refills: 5, CHECK GLUCOSE LEVEL FASTING IN MORNING AND BEFORE EVENING MEAL, Pharmacy [facility] [id number] Start Date: 07/21/23 Status: Ordered ONE TOUCH ULTRA BLUE TEST STRP Start: 03/03/23 12:04:00 EDT, ONE TOUCH ULTRA BLUE TEST STRP, See Instructions, Disp# 50 strip, Refills: 5, CHECK GLUCOSE LEVEL FASTING IN MORNING AND BEFORE EVENING MEAL, Pharmacy [facility] [id number] Start Date: 03/03/23 Status: Ordered One Touch Ultra Glucose Monitor Kit Start: 08/21/21 17:13:00 EST, See Instructions, Disp# 1 kit, Check glucose levels twice a day, Pharmacy: [facility]/pharmacy #[id number] Start Date: 08/21/21 Status: Ordered One Touch Ultrasoft (28G) Lancets Start: 08/22/21 9:52:00 EST, See Instructions, Disp# 100 lancet, Refills: 3, Use to test BSG BID, Note to Pharmacy: Dx: E11.9, [id number] Start Date: 08/22/21 Status: Ordered Potassium Chloride (Eqv-K-Tab) 10 mEq oral tablet, extended release Start: 07/23/23 11:29:00 EST Start Date: 07/23/23 Status: Ordered predniSONE 50 mg oral tablet Start: 08/20/23 12:19:00 EST, 1 tab, PO, Daily, Disp# 5 tab, X 5 day, Stop: 08/25/23 12:19:00 EST, Pharmacy: [facility]/pharmacy #[id number] Start Date: 08/20/23 Stop Date: 08/25/23 Status: Ordered Saline Mist 0.65% nasal spray Start: 07/23/23 11:31:00 EST Start Date: 07/23/23 Status: Ordered Senokot 8.6 mg oral tablet Start: 07/23/23 11:27:00 EST, 1 tab, PO, Daily Start Date: 07/23/23 Status: Ordered Vitamin D3 5000 intl units (125 mcg) oral tablet Start: 03/12/23 12:20:00 EDT, 1 tab, PO, Daily, Disp# 90 tab, Refills: 3, Pharmacy: [facility]/pharmacy #[id number] Start Date: 03/12/23 Status: Ordered Wixela Inhub 250 mcg-50 mcg inhalation powder Start: 07/16/23 7:07:00 EST, 1 puff, inhaled, bid, Disp# 60 blister, Refills: 11, Pharmacy: [facility]/pharmacy #[id number] Start Date: 07/16/23 Status: Ordered Mental Status 08/19/23 Barriers to Learning one year None evide nt Mandatory Health Literacy Documentation Yes Health Literacy Communication Barriers N ever Primary Language Bengali Problem List Condition Confirmation Course Effective Dates [...] Dates Health Status Cl inical Service Informant HTN (hypertension) Discharge Diagnosis 08/19/23 Allergic asthma Discharge Diagnosis 08/19/23 Allergic rhinitis Discharge Diagnosis 08/19/23 Procedures Procedure Date Related Diagnosis Body Site [...] to oldest [Reference Range]: 1 Heart Rate 90 bpm (08/19/23 11:09 AM) Respiratory Rate 18 br/min (08/19/23 11:09 AM) Blood Pressure 116/64mmHg (08/19/23 11:09 AM) Cuff Pulse Pressure 52 mmHg (08/19/23 11:09 AM) Social History Social History Type Response Smoking Status Never smoked cigaret grabiel Sex Female FCM Outpt Note * RAY Canales Tara: PERFORM Event Display: FCM Outpt Note Authored Date: [id number] Chief Complaint hospital f/u, feeling better but continues with congestion rodrick. in AM History of Present Illness Patient was hospitalized from 07/20/2023 to 07/22/2023 for acute UTI, possible sepsis and enterorhinovirus. She was sent home on Augmentin for her UTI. On 07/26/2023 she returned to the emergency roomdue to malaise, sore throat, chills, body aches and productive cough. She denied fever. Was felt that this was an asthma exacerbation/bronchitis she had no leukocytosis or hypoxia and was afebrile upon presentation. Chest x-ray showed cardiomegaly with galley with no acute findings. She wasgiven DuoNebs guaifenesin and Solu-Medrol during admission and formoterol nebs twice daily. She was sent home on a prednisone taper.? She was sent home with PT and OT due to weakness. Her creatinine had been slightly elevated at 1.28 most likely due to dehydration she was given IV fluids. She had Dangelo catheter placed during admission due to incontinence. She finished her course of Augmentin during hospitalization for her UTI. She is here today for follow-up. She states that she still has some congestion. She states thatshe is trying to get up and move around within the house. Otherwise she is wheelchair-bound. She denies any fevers. She is using her maintenance inhaler and also using albuterol nebs as needed. She states she uses them approximately twice a day.No urinary symptoms. Review of Systems Constitutional: No fever, chills, sweats EENT:No vision change, eye pain, rhinorrhea, sinus pain, epistaxis, dysphagia, change in hearing,tinnitus, vertigo, oral ulcers or lesions. +Nasal congestion Pulmonary: As per HPI Cardiovascular: No chest pain, palpitations, syncope, edema, cyanosis, claudication, orthopnea. Neurologic: No headache, lightheadedness, dizziness Physical Exam Vitals & Measurements HR:90(Monitored) RR:18 BP:116/64 SpO2:95% PHQ2 Data(Data Documented on:08/19/2023 11:09) Emotional health assessment NEGATIVE head- normocephalic eyes- PERRLA , conjunctiva clear, sclera white, anicteric, neck-no lymphadenopathy, masses, or thyromegaly, +carotid pulses, no bruits, trachea midline Pulmonary- chest expansion symmetric. +wheezing all lung collazo CV (cardiovascular)- RRR no m/r/g (systolic ejection murmur, rubs, gallops), good peripheral perfusion extremitiesNo edema or erythema. Neuro:Alert, Oriented Psy:no homicidal or suicidal ideations. Assessment/Plan 1.HTN (hypertension) Acute/Chronic: chronic Goal:Resolution/ control Status:stable/controlled Data: records/pt report Plan:bp well controlled. Contd on present regimen. 2.Allergic asthma Acute/Chronic: chronic Goal:Resolution/ control Status:stable/controlled Data: records/pt report Plan:Has wheezing. Will check CXR. Increase use of neb to 3-4 times a day. O2 sat is acceptable. If not pneumonia will give short hugh of steroids. 3.Allergic rhinitis Acute/Chronic: chronic Goal:Resolution/ control Status:stable/controlled Data: records/pt report Plan:Revewed her nasal sprays. time spent reviewing chart, face to face visit, ordersand documentation: 42 min Problem List/Past Medical History Ongoing Adult [...] mg oral tablet), See Instructions, 3 refills bumetanide(bumetanide 0.5 mg oral tablet), See Instructions, 11 refills cholecalciferol(Vitamin D3 5000 intl units (125 mcg) oral tablet), 5000 Int_Unit= 1 tab, PO, Daily,3 refills diabetes supplies(One Touch Ultra Glucose Monitor Kit), See Instructions diabetes supplies(One Touch Ultrasoft (28G) Lancets), See Instructions, 3 refills diclofenac(diclofenac potassium 50 mg oral tablet), 50 mg= 1 tab, PO, tid, PRN, 3 refills diclofenac topical(diclofenac sodium 1% topical cream) fluticasone nasal(fluticasone 50 mcg/inh nasal spray), 2 spray, each nostril, Daily fluticasone-salmeterol(Wixela Inhub 250 mcg-50 mcg inhalation powder), 1 puff, inhaled, bid, 11 refills ipratropium nasal(Atrovent 21 mcg/inh nasal spray), 2 spray, intranasal, bid, 3 refills ipratropium nasal(ipratropium 21 mcg/inh (0.03%) nasal spray), 2 spray, each nostril, bid levothyroxine(levothyroxine 25 mcg (0.025 mg) oral tablet), 1 tab, PO, Daily LORazepam(LORazepam 1 mg oral tablet), 0.5 mg= 0.5 tab, PO, tid, PRN, 3 refills magnesium oxide(magnesium oxide 400 mg (241.3 mg elemental magnesium) oral tablet), 400 mg= 1 tab, PO, Daily metFORMIN(metFORMIN 500 mg oral tablet), 500 mg= 1 tab, PO, bid, 3 refills miconazole topical(miconazole 2% topical powder), 1 appl, topical, bid nystatin topical(nystatin 100,000 units/g topical powder) nystatin topical(nystatin 100,000 units/g topical powder), See Instructions, 6 refills nystatin-triamcinolone topical(nystatin-triamcinolone 100,000 units/g-0.1% topical cream), 1 appl, topical, bid, 1 refills omeprazole(omeprazole 20 mg oral delayed release capsule), See Instructions, 3 refills potassium chloride(Potassium Chloride (Eqv-K-Tab) 10 mEq oral tablet, extended release) senna(Senokot 8.6 mg oral tablet), 8.6 mg= 1 tab, PO, Daily sodium chloride nasal(Saline Mist 0.65% nasal spray) unlisted medication(ONE TOUCH ULTRA BLUE TEST STRP), See Instructions unlisted medication(ONE TOUCH ULTRA BLUE TEST STRP), [...] the next year) Due Adult COVID-19 Vaccination due08/19/23Unknown Frequency Adult Social Determinants of Health Screening due08/19/23Unknown Frequency Adult Tdap/Td Vaccine due08/19/23Unknown Frequency Breast Cancer Screening due08/19/23Unknown Frequency Diabetic Eye Exam due08/19/23Unknown Frequency Hepatitis C Screening due08/19/23One-time only Medicare Annual Wellness Visit due08/19/23and every 1year Osteoporosis Screening due08/19/23One-time only Due In Future Body Mass Index not due until09/26/23and every 366day Adult Influenza Vaccine not due until01/11/24and every 1year Diabetes Management A1c not due until03/25/24and every 366day Satisfied(in the past 1 year) Satisfied Adult COVID-19 Vaccination on04/15/23.Satisfied by TOÑITO Pandey Angela Adult Influenza Vaccine on03/21/23.Satisfied by THEE Jason, Danielle Body Mass Index on09/25/22.Satisfied by TOÑITO Pereira, Lilliana Diabetes Management A1c on03/25/23.Satisfied by Contributor_system, [employer] Diabetes Nephropathy Management on09/16/22.Satisfied by Contributor_system, [id number] Electronic Signature on File Electronically Reviewed/Signed by: RAY Castellanos Author Signature Dt/Tm:08/19/2023 01:00 PM Department of Family Medicine TB Patient Care team information Care Team Personnel Name: RAY Canales Tara Position: Nurse Pract - Family Med Member Role: Primary Care Provider Address: Address: [address] [place] [address], [place] [id number] Care Team Related Persons Name: FRED HERNANDEZ Address: home [address] [place] [address] [place] [phone]
--- OUTSIDE RECORDS SUMMARY | 2023-09-26 23:32 | External Medical Summary | Continuity of Care Document ---
Author Name Unknown Organization [address] [id number] Care Team Providers Care Rotary Engraver Name Role Phone Rhona Canales Primary Care Physician [phone] Encounter [facility] [id number] Date(s): 09/01/23 - 09/01/[address] [address] [phone] Encounter Diagnosis Asthma exacerbation(Discharge Diagnosis) - 09/01/23 Discharge Disposition: Home or Self Care Attending Physician: RAY Canales Tara Referring Physician: RAY Canales Tara Allergies, Adverse Reactions, Alerts Substance Reaction Severity Status codeine Active Singulair 1 Sleep walking Active 1Husband found pt. out in the driveway with no idea how she got there in the middle of the night. Assessment and Plan Extracted from: Title:follow up Author:RAY Canales Tara Date: 1.Asthma exacerbation Acute/Chronic: acute Goal:Resolution/ control Status:ongoing Data: records/pt report Plan: Pt is feeling better. Lungs are clear. Can contd to use nebs as needed along with her maintenance inhaler. She has a albuterol inhaler to use if she is out and cannot use neb. Has follow up in one month that she will keep. time spent reviewing chart, face to face visit, ordersand documentation: 22 min Immunizations Given and Recorded Vaccine Date [...] 4Result Comment: 2021-08-20: Historical information-source unspecified Medications Albuterol (Eqv-ProAir HFA) 90 mcg/inh inhalation aerosol Start: 08/22/23 15:12:00 EST, 2 puff, inhaled, q4h, Disp# 1 each, Refills: 3, Pharmacy: [facility]/pharmacy #[id number] Start Date: 08/22/23 Status: Ordered albuterol 0.083% for nebulization Start: 04/24/22 16:50:00 EDT, 3 mL, inhaled, tid, Disp# 810 mL, Refills: 3, PRN: as needed for wheezing, Pharmacy: [facility]/pharmacy #[id number] Start Date: 04/24/22 Status: Ordered aspirin Start: 11/28/22 13:37:00 EDT, 81 mg =, PO, Daily Start Date: 11/28/22 Status: Ordered atorvastatin 40 mg oral tablet Start: 03/12/23 12:20:00 EDT, 1 tab, PO, qhs, Disp# 90 tab, Refills: 3, Pharmacy: [facility]/pharmacy #[id number] Start Date: 03/12/23 Status: Ordered Atrovent 21 mcg/inh nasal spray Start: 08/19/23 14:13:00 EST, 2 spray, intranasal, bid, Disp# 3 each, Refills: 3, Note to Pharmacy:0.03% intranasal solution, Pharmacy: [facility]/pharmacy #[id number] Start Date: 08/19/23 Status: Ordered benazepril 40 mg oral tablet Start: 03/12/23 12:19:00 EDT, See Instructions, Disp# 90 tab, Refills: 3, TAKE 1 TABLET BY MOUTH ONCE DAILY, [id number] Start Date: 03/12/23 Status: Ordered bumetanide 0.5 mg oral tablet Start: 03/12/23 12:19:00 EDT, See Instructions, Disp# 45 tab, Refills: 11, TAKE 1 TABLET BY MOUTH EVERY DAY, WITH 2ND DOSE IN EVENING DIRECTED FOR FLUID OVERLOAD, [id number] Start Date: 03/12/23 Status: Ordered diclofenac potassium 50 mg oral tablet Start: 03/27/23 14:01:00 EDT, 1 tab, PO, tid, Disp# 270 tab, Refills: 3, PRN: as needed for pain, [id number] Start Date: 03/27/23 Status: Ordered diclofenac sodium 1% topical cream Start: 07/23/23 11:28:00 EST Start Date: 07/23/23 Status: Ordered fluticasone 50 mcg/inh nasal spray Start: 08/19/23 14:12:00 EST, 2 spray, each nostril, Daily, Disp# 16 g, Refills: 11, Pharmacy: [facility]/pharmacy #[id number] Start Date: 08/19/23 Status: Ordered levothyroxine 25 mcg (0.025 mg) oral tablet Start: 05/12/23 16:27:00 EDT, 1 tab, PO, Daily, Disp# 90 tab, Refills: 3, Pharmacy: [facility] [id number] Start Date: 05/12/23 Status: Ordered LORazepam 1 mg oral tablet Start: 03/14/23 16:49:00 EDT, 0.5 tab, PO, tid, Disp# 45 tab, Refills: 3, PRN: as needed for anxiety, Pharmacy: [facility]/pharmacy #[id number] Start Date: 03/14/23 Status: Ordered magnesium oxide 400 mg (241.3 mg elemental magnesium) oral tablet Start: 07/23/23 11:29:00 EST, 1 tab, PO, Daily Start Date: 07/23/23 Status: Ordered metFORMIN 500 mg oral tablet Start: 04/09/23 19:19:00 EDT, 1 tab, PO, bid, Disp# 180 tab, Refills: 3, Pharmacy: [facility]/pharmacy #[id number] Start Date: 04/09/23 Status: Ordered miconazole 2% topical powder Start: 07/23/23 11:26:00 EST, 1 appl, topical, bid Start Date: 07/23/23 Status: Ordered nystatin 100,000 units/g topical powder Start: 07/23/23 11:27:00 EST Start Date: 07/23/23 Status: Ordered nystatin 100,000 units/g topical powder Start: 09/25/22 16:09:00 EDT, See Instructions, Disp# 30 g, Refills: 6, Apply sparing to area underbreasts bid, Pharmacy: [facility]/pharmacy #[id number] Start Date: 09/25/22 Status: Ordered nystatin-triamcinolone 100,000 units/g-0.1% topical cream Start: 01/30/22 11:47:00 EDT, 1 appl, topical, bid, Disp# 60 g, Refills: 1, to area to affected area as directed, Pharmacy: [facility]/pharmacy #[id number] Start Date: 01/30/22 Stop Date: 02/27/22 Status: Ordered omeprazole 20 mg oral delayed release capsule Start: 04/09/23 19:19:00 EDT, See Instructions, Disp# 90 cap, Refills: 3, TAKE 1 CAPSULE BY MOUTH EVERY DAY, Pharmacy: [facility]/pharmacy #[id number] Start Date: 04/09/23 Status: Ordered ONE TOUCH ULTRA BLUE TEST STRP Start: 07/21/23 16:30:00 EST, ONE TOUCH ULTRA BLUE TEST STRP, See Instructions, Disp# 50 strip, Refills: 5, CHECK GLUCOSE LEVEL FASTING IN MORNING AND BEFORE EVENING MEAL, Pharmacy [facility] [id number] Start Date: 07/21/23 Status: Ordered ONE TOUCH ULTRA BLUE TEST STRP Start: 03/03/23 12:04:00 EDT, ONE TOUCH ULTRA BLUE TEST STRP, See Instructions, Disp# 50 strip, Refills: 5, CHECK GLUCOSE LEVEL FASTING IN MORNING AND BEFORE EVENING MEAL, Pharmacy [id number] Start Date: 03/03/23 Status: Ordered One Touch Ultra Glucose Monitor Kit Start: 08/21/21 17:13:00 EST, See Instructions, Disp# 1 kit, Check glucose levels twice a day, Pharmacy: [facility]/pharmacy #[id number] Start Date: 08/21/21 Status: Ordered One Touch Ultrasoft (28G) Lancets Start: 08/22/21 9:52:00 EST, See Instructions, Disp# 100 lancet, Refills: 3, Use to test BSG BID, Note to Pharmacy: Dx: E11.9, [id number] Start Date: 08/22/21 Status: Ordered Potassium Chloride (Eqv-K-Tab) 10 mEq oral tablet, extended release Start: 07/23/23 11:29:00 EST Start Date: 07/23/23 Status: Ordered Saline Mist 0.65% nasal spray Start: 07/23/23 11:31:00 EST Start Date: 07/23/23 Status: Ordered Senokot 8.6 mg oral tablet Start: 07/23/23 11:27:00 EST, 1 tab, PO, Daily Start Date: 07/23/23 Status: Ordered Vitamin D3 5000 intl units (125 mcg) oral tablet Start: 03/12/23 12:20:00 EDT, 1 tab, PO, Daily, Disp# 90 tab, Refills: 3, Pharmacy: [facility]/pharmacy #[id number] Start Date: 03/12/23 Status: Ordered Wixela Inhub 250 mcg-50 mcg inhalation powder Start: 07/16/23 7:07:00 EST, 1 puff, inhaled, bid, Disp# 60 blister, Refills: 11, Pharmacy: [facility]/pharmacy #[id number] Start Date: 07/16/23 Status: Ordered Mental Status 09/01/23 Barriers to Learning one year None evide nt Mandatory Health Literacy Documentation Yes Health Literacy Communication Barriers N ever Primary Language Nigerien Problem List Condition Confirmation Course Effective Dates [...] Diagnosis Diagnosis Type Effective Dates Health Status Clinical Service Informant Asthma exacerbation Discharge Diagnosis 09/01/23 Procedures Procedure Date Related Diagnosis Body Site [...] to oldest [Reference Range]: 1 Heart Rate 78 bpm (09/01/23 2:23 PM) Respiratory Rate 16 br/min (09/01/23 2:23 PM) Blood Pressure 126/78mmHg (09/01/23 2:23 PM) Cuff Pulse Pressure 48 mmHg (09/01/23 2:23 PM) Social History Social History Type Response Smoking Status Never smoked 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 Coughing less and not as productive. Is using nebulizer. She did not toleratesteroids. May her heart race so they were stopped. CXR did not show pneumonia. She states nebs helpa lot. No fevers. Review of Systems Constitutional: No fever, chills, sweats Pulmonary: No shortness of breath, dyspnea with exertion. +cough Cardiovascular: No chest pain, palpitations, syncope, edema Physical Exam Vitals & Measurements HR:78(Monitored) RR:16 BP:126/78 SpO2:95% PHQ2 Data(Data Documented on:09/01/2023 14:23) Emotional health assessment NEGATIVE head- normocephalic Pulmonary- chest expansion symmetric, CTA (clear to auscultation), eupnea, no adventitious sounds (rales, crackles, wheezes) CV (cardiovascular)- RRR no m/r/g (systolic ejection murmur, rubs, gallops), good peripheral perfusion Neuro:Alert, Oriented Psy:no homicidal or suicidal ideations. Assessment/Plan 1.Asthma exacerbation Acute/Chronic: acute Goal:Resolution/ control Status:ongoing Data: records/pt report Plan:Pt is feeling better. Lungs are clear. Can contd to use nebs as needed along with her maintenance inhaler. She has a albuterol inhaler to use if she is out and cannot use neb. Has follow up in one month that she will keep. time spent reviewing chart, face to face visit, ordersand documentation: 22 min Problem List/Past Medical History Ongoing Adult [...] (08/15/2021) Chest X-ray (07/10/2021)Pulmonary function testNone Medications albuterol(Albuterol (Eqv-ProAir HFA) 90 mcg/inh inhalation aerosol), 2 puff, inhaled, q4h, 3 refills albuterol(albuterol 0.083% for nebulization), 2.5 mg= 3 [...] cream) fluticasone nasal(fluticasone 50 mcg/inh nasal spray), 100 mcg= 2 spray, each nostril, Daily, 11 refills fluticasone-salmeterol(Wixela Inhub 250 mcg-50 mcg inhalation powder), [...] the next year) Due Adult COVID-19 Vaccination due09/01/23Unknown Frequency Adult Social Determinants of Health Screening due09/01/23Unknown Frequency Adult Tdap/Td Vaccine due09/01/23Unknown Frequency Breast Cancer Screening due09/01/23Unknown Frequency Diabetic Eye Exam due09/01/23Unknown Frequency Hepatitis C Screening due09/01/23One-time only Medicare Annual Wellness Visit due09/01/23and every 1year Osteoporosis Screening due09/01/23One-time only Due In Future Body Mass Index not due until09/26/23and every 366day Adult Influenza Vaccine not due until01/11/24and every 1year Diabetes Management A1c not due until03/25/24and every 366day Satisfied(in the past 1 year) Satisfied Adult COVID-19 Vaccination on04/15/23.Satisfied by TOÑITO Pandey, Karolyn Adult Influenza Vaccine on03/21/23.Satisfied by THEE Jason, Danielle Body Mass Index on09/25/22.Satisfied by TOÑITO Pereira, Lilliana Diabetes Management A1c on03/25/23.Satisfied by Contributor_system, [email or web address] Diabetes Nephropathy Management on09/16/22.Satisfied by Contributor_system, [email or web address] Electronic Signature on File Electronically Reviewed/Signed by: RAY Castellanos Author Signature Dt/Tm:09/01/2023 04:11 PM Department of Family Medicine TB Patient Care team information Care Team Personnel Name: RAY Canales Tara Position: Nurse Pract - Family Med Member Role: Primary Care Provider Address: Address: [address] [place] [address], [place] [address] [place] Care Team Related Persons Name: MARY FRED Address: home [address] [place] [address] KATHY ALEXIS [phone]
[2023-09-27 07:00] LABS: Basophils # (auto) 0.01 K/uL (0.00-0.20); Basophils % (auto) 0.1 %; Hematocrit (blood only) 29.8 % (37.0-47.0); Hemoglobin 9.7 g/dl (12.0-16.0); Immature Granulocytes # (auto) 0.06 K/uL (0.01-0.20); Immature Granulocytes % (auto) 0.4 %; Lymphocytes # (auto) 1.46 K/uL (1.20-3.40); Lymphocytes % (auto) 10.8 %; Mean Corpuscular Hgb Conc 32.6 g/dL (32.0-36.0); Mean Corpuscular Volume 95.2 fL (80.0-100.0); Mean Platelet Volume 13.1 fL (9.4-12.4); Monocytes # (auto) 0.79 K/uL (0.11-0.59); Monocytes % (auto) 5.9 %; Neutrophils # (auto) 11.17 K/uL (1.40-6.50); Neutrophils % (auto) 82.8 %; Platelet Count 123 K/uL (130-400); RDW Coefficient of Variation 16.9 % (11.5-14.5); RDW Standard Deviation 57.9 fL (36.4-46.3); Red Blood Count 3.13 M/uL (4.20-5.40); White Blood Count 13.49 K/ul (4.8-10.8)
[2023-09-27 07:02] LABS: BUN Creatinine Ratio 25.4 (10-20); Calcium 9.9 mg/dl (8.6-10.3); Creatinine Clr Calc Pharmacy 44.1 ml/min; Est GFR (African American) 46.7 ml/min; Est GFR (Non-African American) 40.3 ml/min; Potassium 4.3 mmol/L (3.5-5.1)
--- NOTE | 2023-09-27 07:07 | Electrocardiogram Report ---
Test Reason : Blood Pressure : / mmHG Vent. Rate : 098 BPM Atrial Rate : 098 BPM P-R Int : 168 ms QRS Dur : 082 ms QT Int : 352 ms P-R-T Axes : 023 -26 005 degrees QTc Int : 449 ms Normal sinus rhythm Poor R wave progression, consider anterior CT vs. lead placement vs. LVH Abnormal ECG When compared with ECG of 26-JUL-2023 09:27, T wave amplitude has decreased in Anterior leads Confirmed by Jeff Read ([id number]) on 09/27/2023 7:07:45 AM Referred By: Rhona Canales Confirmed By:Jeff Read
--- NOTE | 2023-09-27 07:16 | Hospitalist Progress Note ---
Date of Service September 27, 2023 Assessment & Plan (1) Generalized muscle weakness: (2) Multiple sclerosis: (3) Hypomagnesemia: (4) Asthma: (5) Hypothyroidism: (6) Hypertension: (7) Diabetes: Plan Pt is a 68 yo female with a past med hx of HTN, hypothyroidism, DMT2, multiple sclerosis, asthma, and obesity presents to the hospital on 09/24 for generalized weakness. PT/OT recommending rehab upon discharge. Continue PT/OT while here. On day 2 of 3 of IV steroids for acute MS flare. Placed ramirez as purewick was not staying in place and pt not currently able to ambulate enough to use bedside commode reliably and safely. Added flonase for post-nasal drip. #Generalized muscle weakness likely secondary to MS flare - LE weakness consistent with MS flare-up - IV methylprednisolone x3 days, day 2 today - Neurology consulted, in agreement, appreciate any further recs - Patient will need outpatient neurology follow up for long-term DMT #DUNCAN - baseline Cr around 1.0 - Cr today 1.34 - will do IVF and track I&Os #Hypomagnesemia -Magnesium 1.5 on admission, repleted 2gm, repeat today 1.9 #Asthma -Will continue home nebulized albuterol q6h PRN, mucinex, flutter valve, ipratropium intranasal #Hypothyroidism - last TSH; 4.0 (07/2023) -Continue home levothyroxine #Hypertension -continue home benazepril #Diabetes -Hold home oral medications -SSI, ACHS checks -Lantus 19U BID DVT Prophylaxis: Lovenox 40mg q12h. Admission and Anticipated Discharge Date Admission Date: September 25, 2023 Supervising Physician Co-Signing Physician Notes I personally examined the patient and verified all ray points of history and exam, discussed case, and agree with decision making with Dr Eugenie Aguirre. No new complaints. Would very much like to do rehab at [facility]. Vitals noted, in general she is awake and alert pleasant no distress. HEENT normocephalic atraumatic mucous membranes moist. Breathing unlabored no accessory muscle use good effort. Skin shows no rashes no pallor or icterus. weaknessmultifactorial between MS flare and deconditioning, morbid obesity with BMI of 46.5 likely contributing to weakness from deconditioning - Continue Solu-Medrol, PT/OT eval and treat, likely will need some sort of rehab (she would prefer [facility] which does seem to be a good fit), obviously will need outpatient neurology follow-up for more intensive management of MS after discharge. DVT prophylaxis with Lovenox Subjective Pt is a 68 yo female with a past med hx of HTN, hypothyroidism, DMT2, multiple sclerosis, asthma, and obesity presents to the hospital on 09/24 for generalized weakness. Today, pt states she is feeling overall okay. She states she feels a bit stronger than yesterday but since she lives alone with and states she could not even get into the car the other day on her own or with her 's help she anticipates needing rehab at this point and is agreeable to going to rehab. States that prior to this hospitalization she was using a bedside commode on her own and was able to pivot to use it other than the days leading up to admission when she noticed profound weakness. Otherwise, no questions or complaints at this point in time. Review of Systems Review of Systems: Constitutional: denies fever, chills, Cardio: denies chest pain, Resp: denies shortness of breath, Physical Exam Physical Exam: General:Alert and oriented, no acute distress, very pleasant HEENT: Normocephalic, moist oral mucosa, Cardio: Regular rate and rhythm, no murmur, Resp:Lungs clear to auscultation b/l but with faint wheezing appreciated GI: Soft and nontender, nondistended, bowel sounds active Skin: Warm, pink, dry, Extremities: noted to have b/l nonpitting edema which also involves the feet, no tenderness or erythema Results & Data Results & Data Vital Signs (Past 12 Hours) Vital Signs Temp Pulse Pulse Resp BP Pulse Ox O2 Del Method 09/27/23 05:00 70 22 94 Room Air 09/27/23 03:27 36.4 C L 91 H 20 101/66 92 Room Air 09/27/23 01:17 Room Air 09/27/23 00:40 36.4 C L 102 H 20 90/52 L 93 Room Air 09/26/23 22:35 89 22 91 Room Air 09/26/23 21:59 88 09/26/23 19:57 36.3 C L 96 H 20 127/74 92 Room Air Resident Activity Tracking Resident Involvement: Resident Care Provided Care Provided: Adult Hospital Medicine
[2023-09-27] MEDS: ACETAMINOPHEN 325 MG TAB PO PRN (07:31)
[2023-09-27] MEDS: LACTATED RINGER'S 1,000 ML IV SCH (07:42)
[2023-09-27 08:31] LABS: Magnesium 1.9 mg/dl (1.7-2.4)
[2023-09-27] MEDS: FLUTICASONE PROPIONATE NA SPR 16 GM BTL SCH (11:32)
--- NOTE | 2023-09-27 15:03 | Billing Data ---
Date of Service September 27, 2023 Coding Level of Care Code 15319 SUB INP/OBS CARE MIN
--- NOTE | 2023-09-28 06:56 | Hospitalist Progress Note ---
Date of Service September 28, 2023 Assessment & Plan (1) Generalized muscle weakness: (2) Multiple sclerosis: (3) Hypomagnesemia: (4) Asthma: (5) Hypothyroidism: (6) Hypertension: (7) Diabetes: Plan Pt is a 68 yo female with a past med hx of HTN, hypothyroidism, DMT2, multiple sclerosis, asthma, and obesity presents to the hospital on 09/24 for generalized weakness. Continue PT/OT here, rehab upon discharge. Day 3 of 3 of IV steroids for acute MS flare today. Dangelo in place. Encouraged po fluid intake #Generalized muscle weakness likely secondary to MS flare - LE weakness consistent with MS flare-up - IV methylprednisolone x3 days, day 2 today - Neurology consulted, in agreement, appreciate any further recs - Patient will need outpatient neurology follow up for long-term DMT #DUNCAN, improving - baseline Cr around 1.0 - Cr 1.34, today 1.24 - track I&Os #Hypomagnesemia, resolved -Magnesium 1.5 on admission, repleted 2gm, yesterday 1.9 #Asthma - Will continue home nebulized albuterol q6h but azucena today for continued wheezing - continue mucinex, flutter valve, ipratropium intranasal #Hypothyroidism - last TSH; 4.0 (07/2023) -Continue home levothyroxine #Hypertension -continue home benazepril #Diabetes -Hold home oral medications -SSI, ACHS checks -Lantus 19U BID DVT Prophylaxis: Lovenox 40mg q12h. Admission and Anticipated Discharge Date Admission Date: September 25, 2023 Supervising Physician Co-Signing Physician Notes I personally examined the patient and verified all ray points of history and exam, discussed case, and agree with decision making with Dr Traore no new complaints, today is day 3 of steroids, hopefully case management will be able to start to work on center [facility] planning tomorrow. Vitals noted, in general she is awake and alert pleasant no distress. HEENT normocephalic atraumatic mucous membranes moist. Breathing unlabored no accessory muscle use good effort. Skin shows no rashes no pallor or icterus. weaknessmultifactorial between MS flare and deconditioning, morbid obesity with BMI of 46.5 likely contributing to weakness from deconditioning - finish Solu-Medrol today. PT/OT eval and treat, ideally dispo to [facility] with [facility]hab emphasis. DVT prophylaxisLovenox. Outpatient neurology follow-up for more longitudinal management of her MS Subjective Pt is a 68 yo female with a past med hx of HTN, hypothyroidism, DMT2, multiple sclerosis, asthma, and obesity presents to the hospital on 09/24 for generalized weakness. Today, pt states she is feeling well. She states she feels her chest congestion is starting to loosen up. She states at home she has been doing her neb treatments every 4 hours or so to help her breathing and while she feels okay today, she does note she feels she is wheezing more here than she does at home with the breathing treatments spaced far apart. Otherwise she is feeling well today and states she has been facetiming her brother while she is here for some company and is going to call her grandson today. Review of Systems Review of Systems: Constitutional: denies fever, chills, Cardio: denies chest pain, Resp: denies shortness of breath, Physical Exam Physical Exam: General:Alert and oriented, no acute distress, very pleasant HEENT: Normocephalic, moist oral mucosa, Cardio: Regular rate and rhythm, no murmur, Resp:Lungs clear to auscultation b/l but with faint wheezing appreciated GI: Soft and nontender, nondistended, bowel sounds active Skin: Warm, pink, dry, Extremities: noted to have b/l nonpitting edema which also involves the feet, no tenderness or erythema Results & Data Results & Data Vital Signs (Past 12 Hours) Vital Signs Temp Pulse Pulse Resp BP Pulse Ox O2 Del Method 09/28/23 02:36 36.3 C L 68 18 111/68 93 Room Air 09/27/23 23:26 36.6 C 73 18 101/58 L 92 Room Air 09/27/23 23:15 Room Air 09/27/23 22:01 57 L 09/27/23 19:31 36.4 C L 94 H 18 91/53 L 91 Room Air Resident Activity Tracking Resident Involvement: Resident Care Provided Care Provided: Adult Hospital Medicine
[2023-09-28 08:14] LABS: Basophils # (auto) 0.01 K/uL (0.00-0.20); Basophils % (auto) 0.1 %; Hematocrit (blood only) 29.1 % (37.0-47.0); Hemoglobin 9.3 g/dl (12.0-16.0); Immature Granulocytes # (auto) 0.09 K/uL (0.01-0.20); Immature Granulocytes % (auto) 0.7 %; Lymphocytes # (auto) 1.83 K/uL (1.20-3.40); Lymphocytes % (auto) 13.7 %; Mean Platelet Volume 13.1 fL (9.4-12.4); Monocytes # (auto) 1.04 K/uL (0.11-0.59); Monocytes % (auto) 7.8 %; Neutrophils # (auto) 10.35 K/uL (1.40-6.50); Neutrophils % (auto) 77.7 %; Platelet Count 116 K/uL (130-400); RDW Coefficient of Variation 17.1 % (11.5-14.5); RDW Standard Deviation 58.7 fL (36.4-46.3); White Blood Count 13.32 K/ul (4.8-10.8)
[2023-09-28 08:30] LABS: BUN Creatinine Ratio 36.3 (10-20); Calcium 9.8 mg/dl (8.6-10.3); Creatinine Clr Calc Pharmacy 47.2 ml/min; Est GFR (African American) 51.3 ml/min; Est GFR (Non-African American) 44.3 ml/min; Potassium 4.3 mmol/L (3.5-5.1)
[2023-09-28] MEDS: ALBUTEROL 0.083% NEBU SOLN 3 ML VIAL NEB SCH ×2 (11:29→15:18)
[2023-09-28] MEDS: UMECLIDINIUM BROMIDE 62.5MCG/BLISTER 7 PUFFS/INHALER INH SCH (16:02)
--- NOTE | 2023-09-28 17:30 | Billing Data ---
Date of Service September 28, 2023 Coding Level of Care Code 04565 SUB INP/OBS CARE
[2023-09-29 07:41] LABS: BUN Creatinine Ratio 37.7 (10-20); Calcium 9.7 mg/dl (8.6-10.3); Creatinine Clr Calc Pharmacy 40.2 ml/min; Est GFR (African American) 42.1 ml/min; Est GFR (Non-African American) 36.3 ml/min; Potassium 4.3 mmol/L (3.5-5.1)
--- NOTE | 2023-09-29 09:37 | Hospitalist Progress Note ---
Date of Service September 29, 2023 Assessment & Plan (1) Generalized muscle weakness: (2) Multiple sclerosis: (3) Hypomagnesemia: (4) Asthma: (5) Hypothyroidism: (6) Hypertension: (7) Diabetes: Plan Pt is a 68 yo female with a past med hx of HTN, hypothyroidism, DMT2, multiple sclerosis, asthma, and obesity presents to the hospital on 09/24 for generalized weakness. Dangelo in place. Encouraged po fluid intake #Generalized muscle weakness likely secondary to MS flare - LE weakness consistent with MS flare-up - IV methylprednisolone x3 days, completed - Neurology consulted, in agreement, appreciate any further recs - Patient will need outpatient neurology follow up for long-term DMT - Plan for dc to rehab when bed available #DUNCAN, improving - baseline Cr around 1.0 - Cr 1.34, today 1.24 - track I&Os #Hypomagnesemia, resolved -Magnesium 1.5 on admission, repleted 2gm, yesterday 1.9 #Asthma - Will continue home nebulized albuterol q6h but azucena today for continued wheezing - continue mucinex, flutter valve, ipratropium intranasal #Hypothyroidism - last TSH; 4.0 (07/2023) -Continue home levothyroxine #Hypertension -continue home benazepril #Diabetes -Hold home oral medications -SSI, ACHS checks -Lantus 19U BID DVT Prophylaxis: Lovenox 40mg q12h. Admission and Anticipated Discharge Date Admission Date: September 25, 2023 Supervising Physician Co-Signing Physician Notes ATTESTATION I also saw the patient and confirmed ray portions of the history and exam. I agree with the impression and plan in the resident documentation, and as summarized below. She had some shortness of breath overnight which was relieved with a breathing treatment. This is similar to episode she has at home, also usually relieved with a breathing treatment. This morning, she reports feeling better overall. EXAM Vital signs are stable. Afebrile. Alert and oriented. Respirations nonlabored Lung sounds are diminished, secondary body habitus Heart sounds distant but regular DATA Labs Sodium 140, potassium 4.3, BUN 55, creatinine 1.46 IMPRESSION & PLAN Weakness MS flare Morbid obesity (46.5) DUNCAN, slight upward trend of serum creatinine today Working on placement. She would like to go to [facility] since her brother is already there and their mother visits quite frequently. Encourage p.o.; repeat BMP in a.m. Continue physical therapy Additional per resident documentation Subjective Patient seen and evaluated at bedside this morning. No acute events overnight. Continues to feel she is improving. Still with some SOB/cough, using flutter valve, no incentive spirometry so far. Resolves with nebulizer treatment. Patient denies CP, abdominal pain, nausea, vomiting, lightheadedness, dizziness, and diarrhea. Review of Systems Review of Systems: reviewed, per HPI Physical Exam Physical Exam: Constitutional: no acute distress, feels she is basically back to baseline HEENT: NCAT, no conjunctival injection CV: regular rhythm, no murmur appreciated, extremities well-perfused, no LE edema Resp: Good air entry bilaterally, mild wheeze/rhonchi MSK: no gross deformities appreciated Skin: warm, dry, no rash appreciated Neuro: alert, oriented, no focal neurologic deficit appreciated Results & Data Results & Data Vital Signs (Past 12 Hours) Vital Signs Temp Pulse Pulse Resp BP Pulse Ox O2 Del Method 09/29/23 08:50 36.5 C 88 16 107/66 94 Room Air 09/29/23 07:00 74 09/29/23 06:59 74 18 98 Room Air 09/29/23 03:31 83 18 93 Room Air 09/29/23 02:15 36.4 C L 70 18 91/53 L 93 Room Air 09/29/23 01:12 Room Air 09/28/23 23:32 71 18 94 Room Air 09/28/23 22:24 36.4 C L 66 18 89/46 L 94 Room Air 09/28/23 21:59 57 L Resident Activity Tracking Resident Involvement: Resident Care Provided Care Provided: Adult Hospital Medicine
[2023-09-30 07:23] LABS: Calcium 9.2 mg/dl (8.6-10.3); Creatinine Clr Calc Pharmacy 47.5 ml/min; Est GFR (African American) 48.5 ml/min; Est GFR (Non-African American) 41.8 ml/min
--- NOTE | 2023-09-30 13:13 | Hospitalist Progress Note ---
Date of Service September 30, 2023 Assessment & Plan (1) Generalized muscle weakness: (2) Multiple sclerosis: (3) Hypomagnesemia: (4) Asthma: (5) Hypothyroidism: (6) Hypertension: (7) Diabetes: Plan Pt is a 68 yo female with a past med hx of HTN, hypothyroidism, DMT2, multiple sclerosis, asthma, and obesity presents to the hospital on 09/24 for generalized weakness. Dangelo in place. Encouraged po fluid intake #Generalized muscle weakness likely secondary to MS flare - LE weakness consistent with MS flare-up - IV methylprednisolone x3 days, completed - Neurology consulted, in agreement, appreciate any further recs - Patient will need outpatient neurology follow up for long-term DMT - Plan for dc to rehab when bed available - PT/OT cleared for rehab, awaiting placement #DUNCAN, improving - Resolved - track I&Os #Hypomagnesemia, resolved -Magnesium 1.5 on admission, repleted 2gm, yesterday 1.9 #Asthma - Will continue home nebulized albuterol q6h but azucena today for continued wheezing - continue mucinex, flutter valve, ipratropium intranasal #Hypothyroidism - last TSH; 4.0 (07/2023) -Continue home levothyroxine #Hypertension -continue home benazepril #Diabetes -Hold home oral medications -SSI, ACHS checks -Lantus 19U BID DVT Prophylaxis: Lovenox 40mg q12h. Admission and Anticipated Discharge Date Admission Date: September 25, 2023 Supervising Physician Co-Signing Physician Notes ATTESTATION I also saw the patient and confirmed ray portions of the history and exam. I agree with the impression and plan in the resident documentation, and as summarized below. She has no complaints this morning. She is looking forward to getting out of the hospital and getting into rehabilitation at [facility]. EXAM 95/63, 88, 20, 36.4, 93% on room air Alert and oriented. Respirations nonlabored DATA Labs BUN 52, creatinine 1.3 IMPRESSION & PLAN Weakness MS flare Morbid obesity (46.5) DUNCAN, slight improvement in serum creatinine today Working on placement. She would like to go to [facility] since her brother is already there and their mother visits quite frequently. Continue physical therapy Additional per resident documentation Subjective Patient seen and evaluated at bedside this morning. No acute events overnight. Continues to feel she is improving. Still with some SOB/cough, using flutter valve, incentive spirometry so far. Resolves with nebulizer treatment. Patient denies CP, abdominal pain, nausea, vomiting, lightheadedness, dizziness, and diarrhea. Review of Systems Review of Systems: reviewed, per HPI Physical Exam Physical Exam: Constitutional: no acute distress, feels she is basically back to baseline HEENT: NCAT, no conjunctival injection CV: regular rhythm, no murmur appreciated, extremities well-perfused, no LE edema Resp: Good air entry bilaterally, mild wheeze/rhonchi MSK: no gross deformities appreciated Skin: warm, dry, no rash appreciated Neuro: alert, oriented, no focal neurologic deficit appreciated Results & Data Results & Data Vital Signs (Past 12 Hours) Vital Signs Temp Pulse Pulse Resp BP Pulse Ox O2 Del Method 09/30/23 11:42 36.4 C L 88 20 95/63 L 93 Room Air 09/30/23 10:59 72 20 92 Room Air 09/30/23 10:27 36.4 C L 93 H 20 103/63 93 Room Air 09/30/23 07:52 34.7 C L 73 18 138/81 91 Room Air 09/30/23 07:14 73 20 92 Room Air 09/30/23 07:00 60 09/30/23 03:02 76 20 93 Room Air 09/30/23 02:56 36.4 C L 77 18 100/64 91 Room Air
--- NOTE | 2023-10-01 07:07 | XRay Report ---
XR chest 1V portable HISTORY: hemoptysis COMPARISON: Chest 09/25/2023. FINDINGS: No pneumothorax. No pleural effusions. There are low lung volumes. The heart remains enlarg ed. There is mild central pulmonary vascular congestion without overt edema. Left basilar linear dens ities favor subsegmental atelectasis. There is mild elevation of the left hemidiaphragm. Calcificatio ns within the aortic knob. Degenerative changes within the shoulders. IMPRESSION: 1. Mild cardiomegaly, unchanged. 2. Mild central pulmonary vascular congestion without overt edema. 3. Left basilar linear densities favor subsegmental atelectasis. ACT 112: Negative or not required by law. Electronically signed by: Remington Altamirano M.D. 10/01/2023 7:05 AM
[2023-10-01 07:16] LABS: BUN Creatinine Ratio 36.8 (10-20); Calcium 9.4 mg/dl (8.6-10.3); Creatinine Clr Calc Pharmacy 50.7 ml/min; Est GFR (African American) 55.1 ml/min; Est GFR (Non-African American) 47.5 ml/min; Potassium 4.2 mmol/L (3.5-5.1)
[2023-10-01] MEDS: BUMETANIDE 1 MG TAB PO ONE (09:06)
--- NOTE | 2023-10-01 14:26 | Hospitalist Progress Note ---
Date of Service October 01, 2023 Assessment & Plan (1) Generalized muscle weakness: (2) Multiple sclerosis: (3) Hypomagnesemia: (4) Asthma: (5) Hypothyroidism: (6) Hypertension: (7) Diabetes: Plan Pt is a 68 yo female with a past med hx of HTN, hypothyroidism, DMT2, multiple sclerosis, asthma, and obesity presents to the hospital on 09/24 for generalized weakness. Dangelo in place - will need to be removed prior to dc #Generalized muscle weakness likely secondary to MS flare - LE weakness consistent with MS flare-up - IV methylprednisolone x3 days, completed - Neurology consulted, in agreement, appreciate any further recs - Patient will need outpatient neurology follow up for long-term DMT - Plan for dc to rehab when bed available - PT/OT cleared for rehab, awaiting placement #Cough - Largely resolves with nebulizer treatment - Repeat CXR negative for acute process - demonstrates pulmonary congestion - Pt on 0.5mg bumex outpatient, will give 1x1mg bumex this am #DUNCAN, improving - Resolved - track I&Os #Hypomagnesemia, resolved -Magnesium 1.5 on admission, repleted 2gm, yesterday 1.9 #Asthma - Will continue home nebulized albuterol q6h but azucena today for continued wheezing - continue mucinex, flutter valve, ipratropium intranasal #Hypothyroidism - last TSH; 4.0 (07/2023) -Continue home levothyroxine #Hypertension -continue home benazepril #Diabetes -Hold home oral medications -SSI, ACHS checks -Lantus 19U BID DVT Prophylaxis: Lovenox 40mg q12h. Admission and Anticipated Discharge Date Admission Date: September 25, 2023 Supervising Physician Co-Signing Physician Notes ATTESTATION I also saw the patient and confirmed ray portions of the history and exam. I agree with the impression and plan in the resident documentation, and as summarized below. She is feeling well this morning. She did get a dose of Bumex earlier this morning and her breathing feels better. She reports that she takes this on a as needed basis when at home. EXAM 125/80, 72, 16, 36.5, 94% on room air Alert and oriented. Respirations nonlabored DATA Labs Sodium 143, potassium 4.2, BUN 43, creatinine 1.17 IMPRESSION & PLAN Weakness MS flare Morbid obesity (46.5) DUNCAN, continued improvement in serum creatinine today Working on placement. She would like to go to [facility] since her brother is already there and their mother visits quite frequently. Continue physical therapy while inpatient Additional per resident documentation Subjective Patient seen and evaluated at bedside this morning. Had very mild hemoptysis overnight. Patient denies CP, abdominal pain, nausea, vomiting, lightheadedness, dizziness, and diarrhea. Review of Systems Review of Systems: reviewed, per HPI Physical Exam Physical Exam: Constitutional: no acute distress, feels she is basically back to baseline HEENT: NCAT, no conjunctival injection CV: regular rhythm, no murmur appreciated, extremities well-perfused, no LE edema Resp: Good air entry bilaterally, mild wheeze/rhonchi MSK: no gross deformities appreciated Skin: warm, dry, no rash appreciated Neuro: alert, oriented, no focal neurologic deficit appreciated Results & Data Results & Data Vital Signs (Past 12 Hours) Vital Signs Temp Pulse Pulse Resp BP Pulse Ox O2 Del Method 10/01/23 07:52 72 10/01/23 07:52 Room Air 10/01/23 07:49 36.5 C 74 16 125/80 94 Room Air 10/01/23 03:10 72 18 94 Room Air 10/01/23 02:50 36.3 C L 84 18 110/72 94 Room Air
[2023-10-02 07:02] LABS: BUN Creatinine Ratio 38.8 (10-20); Calcium 9.5 mg/dl (8.6-10.3); Creatinine Clr Calc Pharmacy 57.7 ml/min; Est GFR (African American) 64.2 ml/min; Est GFR (Non-African American) 55.4 ml/min
[2023-10-02] MEDS: BUMETANIDE 1 MG TAB PO SCH (11:16)
[2023-10-02 12:15] LABS: Appearance Urine Cloudy (Clear); Bilirubin Urine Negative (Negative); Blood Urine 3+ (Negative); Color Urine Orange; Glucose Urine UA Negative (Negative); Ketones Urine Negative (Negative); Leukocyte Esterase Urine 1+ (Negative); Nitrite Urine Positive (Negative); Protein Urine 3+ (Negative); Specific Gravity Urine 1.021 (1.000-1.030); Urobilinogen Urine Negative (Negative); WBC Urine Automated >30 /hpf (0-5); pH Urine 5.5 (4.5-7.5)
[2023-10-02 12:30] LABS: RBC Urine Automated >30 /hpf (0-4)
[2023-10-02 12:33] LABS: Bacteria Urine Automated 2+ (Negative)
--- NOTE | 2023-10-02 14:46 | Hospitalist Progress Note ---
Date of Service October 02, 2023 Assessment & Plan (1) Generalized muscle weakness: (2) Multiple sclerosis: (3) Hypomagnesemia: (4) Asthma: (5) Hypothyroidism: (6) Hypertension: (7) Diabetes: Plan Pt is a 68 yo female with a past med hx of HTN, hypothyroidism, DMT2, multiple sclerosis, asthma, and obesity presents to the hospital on 09/24 for generalized weakness. Dangelo dc'd today #Generalized muscle weakness likely secondary to MS flare - LE weakness consistent with MS flare-up - IV methylprednisolone x3 days, completed - Neurology consulted, in agreement, appreciate any further recs - Patient will need outpatient neurology follow up for long-term DMT - Plan for dc to rehab when bed available - PT/OT cleared for rehab, awaiting placement #Cough - Largely resolves with nebulizer treatment - Repeat CXR negative for acute process - demonstrates pulmonary congestion - Pt on 0.5mg bumex outpatient, will continue this #DUNCAN, improving - Resolved - track I&Os #Hypomagnesemia, resolved -Magnesium 1.5 on admission, repleted 2gm, yesterday 1.9 #Asthma - Will continue home nebulized albuterol q6h but azucena today for continued wheezing - continue mucinex, flutter valve, ipratropium intranasal #Hypothyroidism - last TSH; 4.0 (07/2023) -Continue home levothyroxine #Hypertension -continue home benazepril #Diabetes -Hold home oral medications -SSI, ACHS checks -Lantus 19U BID DVT Prophylaxis: Lovenox 40mg q12h. Admission and Anticipated Discharge Date Admission Date: September 25, 2023 Supervising Physician Co-Signing Physician Notes ATTESTATION I also saw the patient and confirmed ray portions of the history and exam. I agree with the impression and plan in the resident documentation, and as summarized below. She is feeling well this morning. is at bedside this morning EXAM 103/65, 99, 18, 36.6, 93% room air Alert and oriented. Respirations nonlabored Dangelo is draining a darker colored urine DATA Labs BUN 40, creatinine 1.03 IMPRESSION & PLAN Weakness MS flare Morbid obesity (46.5) DUNCAN, continued improvement in serum creatinine today Discontinue Dangelo Check urine culture Pending placement to [facility] Additional per resident documentation Subjective Patient seen and evaluated at bedside this morning. States feeling well today after bumex dose yesterday. Patient denies CP, abdominal pain, nausea, vomiting, lightheadedness, dizziness, and diarrhea. Review of Systems Review of Systems: reviewed, per HPI Physical Exam Physical Exam: Constitutional: no acute distress, feels she is basically back to baseline HEENT: NCAT, no conjunctival injection CV: regular rhythm, no murmur appreciated, extremities well-perfused, no LE edema Resp: Good air entry bilaterally, mild wheeze/rhonchi MSK: no gross deformities appreciated Skin: warm, dry, no rash appreciated Neuro: alert, oriented, no focal neurologic deficit appreciated Results & Data Results & Data Vital Signs (Past 12 Hours) Vital Signs Temp Pulse Pulse Resp BP Pulse Ox O2 Del Method 10/02/23 11:27 36.6 C 93 H 16 103/65 93 Room Air 10/02/23 10:23 92 H 18 96 Room Air 10/02/23 09:30 86 10/02/23 08:02 36.4 C L 84 16 117/77 94 Room Air 10/02/23 07:30 Room Air 10/02/23 07:02 78 18 98 Room Air 10/02/23 03:23 81 18 95 Room Air 10/02/23 03:17 36.6 C 78 18 124/71 95 Room Air Resident Activity Tracking Resident Involvement: Resident Care Provided Care Provided: Adult Hospital Medicine
[2023-10-02] MEDS: SULFAMETHOXAZOLE/TRIMETHOPRIM DS 800/160MG TAB PO SCH (21:19)
[2023-10-03 07:16] LABS: BUN Creatinine Ratio 29.6 (10-20); Calcium 9.6 mg/dl (8.6-10.3); Creatinine Clr Calc Pharmacy 45.1 ml/min; Est GFR (African American) 46.3 ml/min
[2023-10-03] MEDS: LACTATED RINGER'S 500 ML IV ONE (14:32)
--- NOTE | 2023-10-03 15:28 | Hospitalist Progress Note ---
Date of Service October 03, 2023 Assessment & Plan (1) Generalized muscle weakness: (2) Multiple sclerosis: (3) Hypomagnesemia: (4) Asthma: (5) Hypothyroidism: (6) Hypertension: (7) Diabetes: Plan Pt is a 68 yo female with a past med hx of HTN, hypothyroidism, DMT2, multiple sclerosis, asthma, and obesity presents to the hospital on 09/24 for generalized weakness. #Generalized muscle weakness likely secondary to MS flare - LE weakness consistent with MS flare-up - IV methylprednisolone x3 days, completed - Neurology consulted, in agreement, appreciate any further recs - Patient will need outpatient neurology follow up for long-term DMT - Plan for dc to rehab/snf when bed available - PT/OT cleared for rehab, awaiting placement - peer to peer requested #Cough - Largely resolves with nebulizer treatment - Repeat CXR negative for acute process - demonstrates pulmonary congestion - Pt on 0.5mg bumex outpatient, with DUNCAN since restarting, will start QOD dosing #DUNCAN, improving - Recurrent today after starting Bumex, will start QOD dosing - Treat suspected UTI - Follow urine culture - track I&Os #Hypomagnesemia, resolved -Magnesium 1.5 on admission, repleted 2gm, yesterday 1.9 #Asthma - Will continue home nebulized albuterol q6h but azucena today for continued wheezing - continue mucinex, flutter valve, ipratropium intranasal #Hypothyroidism - last TSH; 4.0 (07/2023) -Continue home levothyroxine #Hypertension -continue home benazepril #Diabetes -Hold home oral medications -SSI, ACHS checks -Lantus 19U BID DVT Prophylaxis: Lovenox 40mg q12h. Admission and Anticipated Discharge Date Admission Date: September 25, 2023 Supervising Physician Co-Signing Physician Notes I personally examined the patient and verified ray points of history and exam, discussed case, and agree with decision making and plan documented by Dr. Bonds. Patient feeling better. Plan for Dangelo removal and TOV. Peer to peer completed by Dr. Bonds and patient approved for SNF. Subjective Patient seen and evaluated at bedside this morning. No acute events overnight. No complaints this morning. Urine continues to be dark in color. Patient denies CP, abdominal pain, nausea, vomiting, lightheadedness, dizziness, and diarrhea. Review of Systems Review of Systems: reviewed, per HPI Physical Exam Physical Exam: Constitutional: no acute distress, feels she is basically back to baseline HEENT: NCAT, no conjunctival injection CV: regular rhythm, no murmur appreciated, extremities well-perfused, no LE edema Resp: Good air entry bilaterally, mild wheeze/rhonchi MSK: no gross deformities appreciated Skin: warm, dry, no rash appreciated Neuro: alert, oriented, no focal neurologic deficit appreciated Results & Data Results & Data Vital Signs (Past 12 Hours) Vital Signs Temp Pulse Pulse Resp BP Pulse Ox O2 Del Method 10/03/23 14:09 36.4 C L 81 18 95/58 L 95 Room Air 10/03/23 10:38 36.4 C L 94 H 18 102/67 93 Room Air 10/03/23 08:00 82 10/03/23 07:44 36.6 C 104 H 18 107/71 94 Room Air Resident Activity Tracking Resident Involvement: Resident Care Provided Care Provided: Adult Hospital Medicine
--- NOTE | 2023-10-04 11:01 | Discharge Summary ---
Date of Service October 04, 2023 Admission HPI Per Admitting Provider Dali is a 68-year-old female with past medical history of multiple sclerosis, type 2 diabetes, hypertension, allergic asthma, weight disorder, hypothyroidism coming in to the ER for weakness. Patient was previously hospitalized from July 20 to July 22 for acute UTI possible sepsis and enterorhinovirus. She was then readmitted from July 26 until July 28 for acute asthma exacerbation. On discharge at that time she went home with DuoNebs, Mucinex, prednisone taper. She was also treated with Augmentin for UTI during the previous admission. She is wheelchair-bound at baseline. She had follow-up with her primary care office on September 01 with subjectively feeling better. Her [facility] home health had called primary care office to let them know that patient was seen the morning of September 17 coughing up green phlegm along with crackles in the lungs and seeming congested. The patient was using Mucinex inhalers and trying to cough things up. Her oxygen saturation at that time was 97% on room air without any fevers, chills, shortness of breath. A chest x-ray was ordered earlier today by primary care office and patient was told to go to the ER if things should worsen. Patient states that she was at her baseline for upper respiratory symptoms essentially unchanged from discharge at the last hospitalization. She was also at her baseline ambulation up until about 3 days ago. Her baseline ambulation consisted of being able to walk at least 4 steps to use the bathroom. However a few days ago she started to experience increased weakness in the legs as well as a buzzing sensation that would come for her legs or her arms or both. She says the buzzing sensation is hard to describe however it is like a momentary shocking pain. She denies any new fevers, chills, nausea, vomiting, shortness of breath, diarrhea, dysuria, urinary frequency, or other urinary symptoms. In the ER her CBC was unremarkable compared to prior CBC with decrease in the white blood cell count and neutrophil count. VBG unremarkable, CMP only remarkable for magnesium of 1.5. Lactate was mildly elevated at 2.1. Chest x- ray in the ER looked unchanged from previous x-ray from when she was discharged at the last hospitalization, no evidence of consolidation. She was given 125mg Solu-medrol. Admission Exam Per Admitting Provider Constitutional: WD/WN, vitals as above Eyes: PERRL, conjunctivae normal, anicteric sclerae Respiratory: Diffuse rhonchi on inhalation, no wheezing. Cardiovascular: RRR, no murmur, no edema Neurologic: PERRL, EOMI, accommodation nl, no face palsy, no dysarthria CN's II-XI intact bilaterally Strength in the upper extremities 5/5. Strength in the lower extremities 4/5 on the right and 3/5 on the left. Sensation intact at the upper extremities and lower extremities bilaterally. Psychiatric: A+Ox3, euthymic affect Principal Diagnosis MS flare, UTI Discharge Exam Constitutional: laying in bed, no acute distress, feels she is basically back to baseline HEENT: NCAT, no conjunctival injection CV: regular rhythm, no murmur appreciated, extremities well-perfused Resp: Good air entry bilaterally, mild wheeze/rhonchi MSK: no gross deformities appreciated Skin: warm, dry, no rash appreciated Neuro: alert, oriented, LE strength diminished Discharge Data Allergies Allergy/AdvReac Type Severity Reaction Status Date / Time montelukast [From Singulair] Allergy Mild Unknown Verified 09/25/23 22:10 Fish Containing Products Allergy Unknown Unknown Verified 09/25/23 22:10 shellfish derived Allergy Unknown Verified 09/25/23 22:10 codeine AdvReac Mild NAUSEATED Verified 09/25/23 22:10 Consultations 09/25/23 20:01 ED Decision to Admit Stat 09/25/23 23:48 Consult Neurology Routine Hospital Course (1) Generalized muscle weakness: (2) Multiple sclerosis: (3) Hypomagnesemia: (4) Asthma: (5) Hypothyroidism: (6) Hypertension: (7) Diabetes: Plan Pt is a 68 yo female with a past med hx of HTN, hypothyroidism, DMT2, multiple sclerosis, asthma, and obesity presents to the hospital on 09/24 for generalized weakness. #Generalized muscle weakness likely secondary to MS flare - LE weakness consistent with MS flare-up - IV methylprednisolone x3 days, completed - Neurology consulted, in agreement, appreciate any further recs - Patient will need outpatient neurology follow up for long-term DMT - Plan for dc to rehab/snf when bed available - PT/OT cleared for rehab, awaiting placement - peer to peer requested - approved #Cough - Largely resolves with nebulizer treatment - Repeat CXR negative for acute process - demonstrates pulmonary congestion - Pt on 0.5mg bumex outpatient, with DUNCAN since restarting, will start QOD dosing #DUNCAN, improving - Recurrent today after starting Bumex, will start QOD dosing - Treat suspected UTI - Bactrim DS BID for total of 7 days - Follow urine culture - track I&Os #Hypomagnesemia, resolved -Resolved #Asthma - Will continue home nebulized albuterol q6h but azucena today for continued wheezing - flutter valve, incentive spirometry #Hypothyroidism - last TSH; 4.0 (07/2023) - Continue home levothyroxine #Hypertension -continue home benazepril #Diabetes -Hold home oral medications - restart on d/c -SSI, ACHS checks -Lantus 19U BID DVT Prophylaxis: Lovenox 40mg q12h. Total Time Total Time Spent Total Time Spent (In Minutes): 30 Discharge Plan Discharge Items Patient Disposition: Transfer Intermediate Fac Reason For Visit: GENERALIZED WEAKNESS Discharge Diagnosis: MS flare, DUNCAN Activity: As commented below Activity Comment: Resume activity as discussed with PT at SNF Non-emergency contact: Primary Care Provider Call non-emergency contact if: you have any medication questions and your symptoms worsen Follow-up/Referrals: Rhona Canales [Primary Care Provider] - Diet: Carb Consistent or DM2 Addtl Attending Provider Instructions: You were admitted to the hospital for weakness. You were found to be having a flare of your MS. You were treated with steroids. While you were here neurology was consulted and agreed with this management. You were also found to have a UTI and are currently being treated for this with antibiotics. You will continue these antibiotics when you are discharged. A discharge summary will be sent to your primary care physician to ensure continuity of care. Please bring this discharge summary with you to your next office appointment so that your provider can review it at that time. Follow-up appointments: Make a follow-up appointment with your PCP within the next week. It is very important that you follow up with them shortly after discharge from the hospital. Keep all your follow-up appointments as already scheduled. If you cannot make an appointment, notify your provider. Medications: Your medication list has been reviewed and reconciled upon discharge to ensure accuracy and continuity of care. An updated list of all your medications is i ncluded with your hospital discharge paperwork. Please review this list closely, and make note of any changes. We sent a new medication called trimethoprim-sulfamethoxazole (Bactrim DS) to your pharmacy. Take Bactrim DS (800-160mg) one tablet twice daily for 6 days. If you have any issues filling these prescriptions, please call [phone] and ask to leave a message for Dr. Devyn Bonds. Take your medications as instructed; do not skip a dose of your medicines. Make sure all of your doctors know every medicine you are taking (including [id number]-ayjuowq medicines, vitamins, and supplements). Call your primary care provider before taking any new medicines (including mnoc-qrg-qwcivws medicines, vitamins, and supplements), because some of these may interact with your current medications, or may make your symptoms worse. Tell your primary care provider if you cannot afford your medications. CONTACT YOUR PRIMARY CARE PROVIDER if you experience any of the following: Increased weakness Urinary burning or urgency after completing your antibiotics Difficulty following your treatment plan, or difficulty taking medications CALL 911 OR GO TO THE EMERGENCY DEPARTMENT if you experience any of the following: Sudden, severe abdominal pain or nausea/vomiting Severe chest pain, or chest pain that radiates (moves) to your jaw or arm Sudden, severe shortness of breath or difficulty breathing Thank you for allowing us to participate in your care. Pending Studies at Discharge: No Stand-Alone Forms: My [facility] Skilled Items Patient informed of condition?: Yes DNR: No Discharge Level of Care: Skilled Communicable Disease: No Discharge Prognosis: Stable Lines: None Urinary Catheter: No Medications and DC Order Prescriptions: New bumetanide 1 mg Tablet 0.5 mg PO Q2D Qty: 15 0RF sulfamethoxazole-trimethoprim [Bactrim DS] 800-160 mg Tablet 1 tab PO Q12 6 Days Qty: 12 0RF Continued metformin 500 mg tablet 500 mg PO BID levothyroxine 25 mcg tablet 25 mcg PO DAILYBB omeprazole 20 mg capsule,delayed release(DR/EC) 20 mg PO PM benazepril 40 mg tablet 40 mg PO QAM aspirin 81 mg Tablet,Delayed Release (Dr/Ec) 81 mg PO QAM Qty: 30 0RF atorvastatin 40 mg tablet 40 mg PO HS fluticasone propion-salmeterol 250-50 mcg/dose blister with device 0 inh INHALATION BID Rx Instructions: Unable to verify this medication with patient/caregiver at this date/time. Was able to verify that it was picked up by Pharmacy. Original Directions: 1 inhalation twice daily docusate sodium 100 mg capsule 100 mg PO PM cholecalciferol (vitamin D3) 125 mcg (5,000 unit) tablet 5,000 unit PO QAM Women's 50 Plus Advanced 400-20 mcg Tablet 1 tab PO QAM turmeric 400 mg Capsule 0 mg PO QAM Rx Instructions: Unable to verify strength of OTC medication with patient/caregiver at this date/time. albuterol sulfate 2.5 mg /3 mL (0.083 %) solution for nebulization 2.5 mg continuous nebulization DIRECTED PRN (Reason: Shortness Of Breath Or Wheezing) diclofenac potassium 50 mg tablet 50 mg PO TID PRN (Reason: Pain) vitamin B complex Tablet 1 tab PO DAILY ipratropium bromide 21 mcg (0.03 %) spray,non-aerosol 2 spray INTRANASAL BID Discontinued bumetanide 0.5 mg tablet 0.5 mg PO UD PRN (Reason: fluid overload ) Rx Instructions: TAKE 1 TABLET BY MOUTH EVERY DAY, WITH 2ND DOSE IN EVENING DIRECTED FOR FLUID OVERLOAD amoxicillin-pot clavulanate 875-125 mg tablet 0 tab PO BID Rx Instructions: Unable to verify this medication with patient/caregiver at this date/time. Was able to verify that it was picked up by Pharmacy. Original Directions: 1 tablet by mouth twice daily. Start Date 07/24/23 - End Date 07/29/23. Discharge Orders: Discharge Order (Routine); Ordered 10/04/23 Ordered By: Devyn Christianson/Other Patient Handouts: Multiple Sclerosis Admission Data Admit Date/Time: 09/25/23 21:47 Attending Provider: Naa Macias Admit Provider: Greg Chase Primary Care Provider: Rhona Canales Other Providers: Veronica Butterfield; Jay Harris; [facility],Home Healthcare; [place]; [facility],Referral Center Other Interventions: Discharge Summary Assessment (RN) Last Done: 10/04/23 11:36 Supervising Physician Co-Signing Physician Notes I personally examined the patient and verified ray points of history and exam, discussed case, and agree with decision making and plan documented by Dr. Bonds. Successful removal of Dangelo and TOV today. Patient discharged to [facility] for rehabilitation. Patient and grateful for care and optimistic for safe return home. Patient advised to follow-up with PCP after rehabilitation. Resident Activity Tracking Resident Involvement: Resident Care Provided Care Provided: Adult [facility]
[2023-10-05] MEDS ORDERED: BUMETANIDE 1 MG TAB PO SCH (09:00)
== END 2023-10-04 12:22 | DRG 59 ==
LOC: ED 16:13 → EDINP 21:47 → SUATTDRO 21:47 → 2N 23:49

== ENCOUNTER 2023-12-01 18:29 | Observation (INO) ==
[2023-12-01 19:13] LABS: Basophils # (auto) 0.05 K/uL (0.00-0.20); Basophils % (auto) 0.4 %; Eosinophils % (auto) 2.5 %; Hemoglobin 11.6 g/dl (12.0-16.0); Immature Granulocytes # (auto) 0.05 K/uL (0.01-0.20); Immature Granulocytes % (auto) 0.4 %; Lymphocytes # (auto) 4.75 K/uL (1.20-3.40); Lymphocytes % (auto) 38.9 %; Mean Corpuscular Hemoglobin 28.9 pg (25.0-34.0); Mean Corpuscular Hgb Conc 31.4 g/dL (32.0-36.0); Mean Corpuscular Volume 92.3 fL (80.0-100.0); Mean Platelet Volume 11.4 fL (9.4-12.4); Monocytes # (auto) 1.04 K/uL (0.11-0.59); Monocytes % (auto) 8.5 %; Neutrophils # (auto) 6.01 K/uL (1.40-6.50); Neutrophils % (auto) 49.3 %; Platelet Count 326 K/uL (130-400); RDW Coefficient of Variation 18.2 % (11.5-14.5); RDW Standard Deviation 60.5 fL (36.4-46.3); Red Blood Count 4.01 M/uL (4.20-5.40)
[2023-12-01] MEDS: ALBUT/IPRATROP 3MG/0.5MG NEB 3 ML VIAL NEB STA (19:18)
--- NOTE | 2023-12-01 19:24 | Emergency Department Note ---
Impression & Plan Asthma exacerbation, Shortness of breath ED Provider Note NAME: GARRICK HERNANDEZ AGE: 68 SEX: F : 1955 ARRIVES VIA: Ambulance INFORMANT: Patient, ED PROVIDER(S): Vipin Villeda MD CHIEF COMPLAINT: Shortness of breath HPI: This is a 68-year-old female presenting for shortness of breath. Patient states that she was at a pulmonology appointment who thought she was having allergies to "something "and they took blood work in order to identify what her trigger was. She went home, ate a steak and shortly after she began feeling more shortness of breath. Developed a cough. She used her albuterol treatments at home without much relief. She called EMS who gave her 125 Solu-Medrol as well as a DuoNeb/albuterol. She does feel somewhat better but still wheezing and short of breath. She has no chest pain. No fevers, chills, nausea or vomiting. ROS: See above HPI for pertinent positives & negatives. A total of 10 systems reviewed and were otherwise negative. PHYSICAL EXAMINATION: General: resting comfortably in no acute distress Head: Normocephalic and atraumatic Eyes: Normal inspection, extraocular muscles intact Ear, nose, throat: Normal external exam Neck: Normal range of motion Respiratory: Wheezing in all lung collazo Cardiovascular: Regular rate/rhythm, no murmur GI: soft, nontender, no guarding or rebound Extremities: nontender, moves all extremities Neuro: The patient awake and alert, appropriately conversive, no focal deficits, symmetric faces Skin: Warm, dry, and intact MEDICAL DECISION MAKING: This is a 68-year-old female presented for shortness of breath. Patient history of asthma and is prescribed nebulizer at home. Currently she appears to have an asthma/COPD exacerbation. Low concern for PE or ACS clinically -Patient stable on arrival albuterol with improvement in her wheezing. She still does appear to be wheezing. -Blood work is reviewed showing no leukocytosis with anemia to 8.3, electrolytes within normal limits. Creatinine elevated at 1.98. -Chest x-ray reveals a left hemidiaphragm elevation without signs of pleural effusion, pneumothorax or focal opacity -Will require admission for continued wheezing and shortness of breath Differential diagnosis: Asthma, pneumonia, COPD, PE, ACS ER treatment provided: See below Diagnostics interpreted by me: ECG: ECG independently interpreted by me with sinus tachycardia, rate of 105, normal axis, normal NH, normal QRS, normal QTc, no ST segment elevations consistent with STEMI criteria Cardiac Monitoring: An order was placed for continuous cardiac monitoring. The monitor shows a rate of 100 with sinus rhythm. Laboratory studies: As stated above and show below. Imaging studies: See below. Past Med/Surg History Problem List (Updated 12/03/23 @ 11:33 by Vipin Villeda MD) Shortness of breath (Acute) Asthma exacerbation (Acute) Edema (Acute) Dyspnea on exertion History of UTI Thrush Yeast dermatitis (Acute) Asthmatic bronchitis (Acute) Generalized muscle weakness (Acute) Acute UTI (urinary tract infection) (Acute) Morbid obesity Ventral hernia Asthma Hypothyroidism Hypertension Hypomagnesemia (Acute) Diabetes Multiple sclerosis (Acute) UTI (urinary tract infection) Sepsis Abnormal finding on diagnostic imaging of left kidney Pseudomonas pneumonia Medical History Hypomagnesemia Hypothermia URI (upper respiratory infection) Hypomagnesemia Dyspnea Left-sided weakness DUNCAN (acute kidney injury) Brain TIA Acute respiratory failure with hypoxia Osteoarthritis of knees, bilateral Sinusitis, acute Morbid obesity with BMI of 50.0-59.9, adult Tachy-rowena syndrome GERD (gastroesophageal reflux disease) Hypothyroidism Pancreatitis Thrombocytopenia Peripheral edema Septic shock Hypomagnesemia Fungal dermatitis Asthma Hypertension Diabetes Influenza A Pneumonia Multiple sclerosis Surgical History H/O tubal ligation H/O sinus surgery History of arthroscopic knee surgery Hx of tonsillectomy H/O: hysterectomy No pertinent past surgical history Family History Other Family history non-contributory Social History Smoking Status: Never smoker Second Hand Exposure: No; Do You Dip or Chew Tobacco: No; Hx Alcohol Use: No Hx Substance Use: No Preferred Language: Serbian Communication Ability: Effective 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 Physical Required: No Beliefs That Will Affect Care: None marital status: Current Living Situation: Spouse Current Living Situation Comment: Spouse and granddaughter How many Children do You have: 2 Other Information That Helps Us Care for You: No Feels Safe at Home: Yes Safety Concerns: Feels Safe At This Time Diet: gluten free during the past year weight has: decreased > 10 lbs Assistive Devices: Nebulizer, Walker and Wheelchair Allergies Allergies Allergy/AdvReac Type Severity Reaction Status Date / Time montelukast [From [facility]] Allergy Mild Unknown Verified 12/01/23 23:00 Fish Containing Products Allergy Unknown Unknown Verified 12/01/23 23:00 shellfish derived Allergy Unknown Verified 12/01/23 23:00 codeine AdvReac Mild NAUSEATED Verified 12/01/23 23:00 Home Meds Home Medications Medication Instructions Recorded Confirmed benazepril 40 mg tablet 40 mg PO QAM 06/25/21 12/01/23 levothyroxine 25 mcg tablet 25 mcg PO DAILYBB 06/25/21 12/01/23 metformin 500 mg tablet 500 mg PO BID 06/25/21 12/01/23 omeprazole 20 mg capsule,delayed 20 mg PO PM 06/25/21 12/01/23 release atorvastatin 40 mg tablet 40 mg PO HS 07/20/23 12/01/23 fluticasone 250 mcg-salmeterol 50 1 inh inhalation BID 07/20/23 12/01/23 mcg/dose blistr powdr for inhalation cholecalciferol (vitamin D3) 125 5,000 unit PO QAM 07/26/23 12/01/23 mcg (5,000 unit) tablet docusate sodium 100 mg capsule 100 mg PO PM PRN Constipation 07/26/23 12/01/23 mwgyquueszus-vluylzux-pthzpmt-folic 1 tab PO QAM 07/26/23 12/01/23 acid 400 mcg-vit K1 20 mcg tablet (Women's 50 Plus Advanced) turmeric 400 mg capsule 0 mg PO QAM 07/26/23 12/01/23 albuterol sulfate 2.5 mg/3 mL 2.5 mg continuous nebulization 09/25/23 12/01/23 (0.083 %) solution for nebulization DIRECTED PRN Shortness Of Breath Or Wheezing diclofenac potassium 50 mg tablet 50 mg PO TID PRN Pain 09/25/23 12/01/23 ipratropium bromide 21 mcg (0.03 2 spray intranasal BID 09/25/23 12/01/23 %) nasal spray vitamin B complex 1 tab PO DAILY 09/25/23 12/01/23 bumetanide 1 mg tablet 0.5 mg PO DIRECTED PRN .edema 12/01/23 12/01/23 multivitamin with minerals-folic 1 tab PO DAILY 12/01/23 12/01/23 acid 80 mcg chewable tablet (Centrum Adult 50 Plus) nystatin 100,000 unit/gram topical 1 applic topical BID 12/01/23 12/01/23 powder (Klayesta) Previous Rx's Medication Instructions Recorded aspirin 81 mg tablet,delayed 81 mg PO QAM #30 tabs 08/16/21 release Wheelchair (Powered) (Power #1 ea 11/05/23 Wheelchair) prednisone 10 mg tablet 10 mg PO DIRECTED #42 tabs 12/03/23 Results & Data (ED) Vital Signs Vital Signs - 24 hr 12/01/23 18:36 12/01/23 18:37 12/01/23 18:37 Temperature Temperature Source Pulse Rate 110 H 110 H Pulse Rate [Apical] Pulse Rate from SpO2 Sensor 111 H 111 H Respiratory Rate 21 26 H Respiratory Effort / Characteristics Respiratory Depth Respiratory Pattern Blood Pressure 132/76 Blood Pressure [Left Arm] Blood Pressure Mean 95 Blood Pressure Mean [Left Arm] Pulse Oximetry 94 94 Oxygen Delivery Method Sepsis Recent Fever Within 48 Hours Sepsis New/Unexplained Change in Mental Status Sepsis Action Taken by Nursing 12/01/23 18:38 12/01/23 18:40 12/01/23 18:41 Temperature Temperature Source Pulse Rate 110 H 111 H Pulse Rate [Apical] Pulse Rate from SpO2 Sensor 111 H Respiratory Rate 26 H Respiratory Effort / Characteristics SOB on Exertion Respiratory Depth Normal Respiratory Pattern Regular Blood Pressure Blood Pressure [Left Arm] Blood Pressure Mean Blood Pressure Mean [Left Arm] Pulse Oximetry 95 Oxygen Delivery Method Room Air Sepsis Recent Fever Within 48 Hours Sepsis New/Unexplained Change in Mental Status Sepsis Action Taken by Nursing 12/01/23 18:41 12/01/23 18:41 12/01/23 18:41 Temperature 36.9 C Temperature Source Oral Pulse Rate 109 H Pulse Rate [Apical] 112 H Pulse Rate from SpO2 Sensor Respiratory Rate 24 26 H Respiratory Effort / Characteristics SOB on Exertion Respiratory Depth Normal Respiratory Pattern Regular Blood Pressure 132/76 Blood Pressure [Left Arm] 132/76 Blood Pressure Mean 94 Blood Pressure Mean [Left Arm] 94 Pulse Oximetry 96 96 96 Oxygen Delivery Method Room Air Room Air Room Air Sepsis Recent Fever Within 48 Hours No Sepsis New/Unexplained Change in Mental Status No Sepsis Action Taken by Nursing Physician Notified 12/01/23 18:50 12/01/23 19:00 12/01/23 19:10 Temperature Temperature Source Pulse Rate 107 H 107 H 110 H Pulse Rate [Apical] Pulse Rate from SpO2 Sensor 107 H 109 H 107 H Respiratory Rate 22 23 22 Respiratory Effort / Characteristics Respiratory Depth Respiratory Pattern Blood Pressure Blood Pressure [Left Arm] Blood Pressure Mean Blood Pressure Mean [Left Arm] Pulse Oximetry 92 93 95 Oxygen Delivery Method Sepsis Recent Fever Within 48 Hours Sepsis New/Unexplained Change in Mental Status Sepsis Action Taken by Nursing 12/01/23 19:20 12/01/23 19:20 Temperature Temperature Source Pulse Rate 102 H Pulse Rate [Apical] Pulse Rate from SpO2 Sensor 104 H Respiratory Rate 27 H Respiratory Effort / Characteristics Respiratory Depth Respiratory Pattern Blood Pressure 102/59 L Blood Pressure [Left Arm] Blood Pressure Mean 64 Blood Pressure Mean [Left Arm] Pulse Oximetry 100 Oxygen Delivery Method Sepsis Recent Fever Within 48 Hours Sepsis New/Unexplained Change in Mental Status Sepsis Action Taken by Nursing Laboratory Data 12/03/23 06:22 12/03/23 06:22 Lab Results 12/01/23 12/01/23 12/01/23 Range/Units 18:46 19:43 23:21 WBC 12.20 H (4.8-10.8) K/ul RBC 4.01 L (4.20-5.40) M/uL Hgb 11.6 L (12.0-16.0) g/dl Hct 37.0 (37.0-47.0) % MCV 92.3 (80.0-100.0) fL MCH 28.9 (25.0-34.0) pg MCHC 31.4 L (32.0-36.0) g/dL RDW Std Deviation 60.5 H (36.4-46.3) fL RDW Coeff of Kaia 18.2 H (11.5-14.5) % Plt Count 326 (130-400) K/uL MPV 11.4 (9.4-12.4) fL Immature Gran % (Auto) 0.4 % Neut % (Auto) 49.3 % Lymph % (Auto) 38.9 % Bollinger % (Auto) 8.5 % Eos % (Auto) 2.5 % Baso % (Auto) 0.4 % Neut # (Auto) 6.01 (1.40-6.50) K/uL Lymph # (Auto) 4.75 H (1.20-3.40) K/uL Bollinger # (Auto) 1.04 H (0.11-0.59) K/uL Eos # (Auto) 0.30 (0.00-0.50) K/uL Baso # (Auto) 0.05 (0.00-0.20) K/uL Immature Gran # (Auto) 0.05 (0.01-0.20) K/uL D-Dimer (0-500) ug/L FEU VBG pH 7.36 (7.36-7.41) VBG pCO2 50 (38-50) mmHg VBG pO2 31 mmHg VBG HCO3 28 mmol/L VBG O2 Saturation < 60.0 % VBG Base Excess 1.9 mEq/L Sodium 142 (136-145) mmol/L Potassium 4.7 (3.5-5.1) mmol/L Chloride 106 (98-107) mmol/L Carbon Dioxide 26 (21-32) mmol/L Anion Gap 10 (3-11) BUN 18 (6-23) mg/dl Creatinine 1.14 (0.6-1.2) mg/dl Est Cr Clr Drug Dosing 55.6 ml/min Est GFR ( Amer) 56.8 ml/min Est GFR (Non-Af Amer) 49.0 ml/min BUN/Creatinine Ratio 15.8 (10-20) Glucose 125 H (70-99(Fasting)) mg/dl POC Glucose 280 H (70-99) mg/dl Calcium 10.9 H (8.6-10.3) mg/dl Phosphorus (2.5-4.9) mg/dl Magnesium (1.7-2.4) mg/dl Total Bilirubin 0.4 (0.2-1.0) mg/dl Direct Bilirubin 0.1 (0-0.2) mg/dl AST 46 H (13-39) U/L ALT 36 (7-52) U/L Alkaline Phosphatase 114 H (34-104) U/L B-Natriuretic Peptide (0-100) pg/ml Total Protein 7.9 (6.0-8.3) gm/dl Albumin 4.3 (3.4-5.0) gm/dl Lipase 36 (11-82) U/L Procalcitonin (0-0.5) ng/ml 12/02/23 12/02/23 12/02/23 Range/Units 05:15 07:30 07:39 WBC 10.37 (4.8-10.8) K/ul RBC 3.60 L (4.20-5.40) M/uL Hgb 10.4 L (12.0-16.0) g/dl Hct 32.6 L (37.0-47.0) % MCV 90.6 (80.0-100.0) fL MCH 28.9 (25.0-34.0) pg MCHC 31.9 L (32.0-36.0) g/dL RDW Std Deviation 58.9 H (36.4-46.3) fL RDW Coeff of Kaia 18.0 H (11.5-14.5) % Plt Count 292 (130-400) K/uL MPV 11.9 (9.4-12.4) fL Immature Gran % (Auto) % Neut % (Auto) % Lymph % (Auto) % Bollinger % (Auto) % Eos % (Auto) % Baso % (Auto) % Neut # (Auto) (1.40-6.50) K/uL Lymph # (Auto) (1.20-3.40) K/uL Bollinger # (Auto) (0.11-0.59) K/uL Eos # (Auto) (0.00-0.50) K/uL Baso # (Auto) (0.00-0.20) K/uL Immature Gran # (Auto) (0.01-0.20) K/uL D-Dimer 570 H* (0-500) ug/L FEU VBG pH (7.36-7.41) VBG pCO2 (38-50) mmHg VBG pO2 mmHg VBG HCO3 mmol/L VBG O2 Saturation % VBG Base Excess mEq/L Sodium 139 (136-145) mmol/L Potassium 4.8 (3.5-5.1) mmol/L Chloride 106 (98-107) mmol/L Carbon Dioxide 22 (21-32) mmol/L Anion Gap 11 (3-11) BUN 23 (6-23) mg/dl Creatinine 1.13 (0.6-1.2) mg/dl Est Cr Clr Drug Dosing 55.6 ml/min Est GFR ( Amer) 57.4 ml/min Est GFR (Non-Af Amer) 49.6 ml/min BUN/Creatinine Ratio 20.4 H (10-20) Glucose 322 H* (70-99(Fasting)) mg/dl POC Glucose 276 H (70-99) mg/dl Calcium 10.0 (8.6-10.3) mg/dl Phosphorus 2.8 (2.5-4.9) mg/dl Magnesium 1.4 L (1.7-2.4) mg/dl Total Bilirubin 0.4 (0.2-1.0) mg/dl Direct Bilirubin 0.1 (0-0.2) mg/dl AST 33 (13-39) U/L ALT 29 (7-52) U/L Alkaline Phosphatase 92 (34-104) U/L B-Natriuretic Peptide 106 H (0-100) pg/ml Total Protein 6.9 (6.0-8.3) gm/dl Albumin 3.7 (3.4-5.0) gm/dl Lipase (11-82) U/L Procalcitonin 0.14 (0-0.5) ng/ml Administered Medications Acetaminophen (Acetaminophen 325 Mg Tab) 650 mg PO Q4H PRN PRN Reason: Pain or Fever Stop: 12/31/23 23:18 Last Admin: 12/02/23 02:06 Dose: 650 mg Documented By: MAC Aspirin (Aspirin 81 Mg Ectab) 81 mg PO [facility] Stop: 01/01/24 08:59 Last Admin: 12/03/23 09:42 Dose: 81 mg Documented By: Admin: 12/02/23 08:10 Dose: 81 mg Documented By: KB Atorvastatin Calcium (Atorvastatin 40 Mg Tab) 40 mg PO [facility] Stop: 01/01/24 20:59 Last Admin: 12/02/23 21:57 Dose: 40 mg Documented By: [id number] Docusate Sodium (Docusate Sodium 100 Mg Cap) 100 mg PO BID PRN PRN Reason: Constipation Stop: 12/31/23 23:18 Last Admin: 12/03/23 09:51 Dose: 100 mg Documented By: ANH Enalapril Maleate (Enalapril Maleate 10 Mg Tab) 40 mg PO QAM SRIDHAR Stop: 01/01/24 08:59 Last Admin: 12/02/23 08:11 Dose: 40 mg Documented By: JUNE Enoxaparin Sodium (Enoxaparin Inj 40 Mg/0.4 Ml Syr) 40 mg SQ QAM SRIDHAR Stop: 01/02/24 08:59 Last Admin: 12/03/23 09:43 Dose: 40 mg Documented By: ANH Fluticasone/Vilanterol (Fluticasone/Vilanterol 200/25mcg 14 Puffs/Inhaler) 1 puffs INH DAILY SRIDHAR Stop: 01/01/24 08:59 Last Admin: 12/03/23 09:42 Dose: 1 puffs Documented By: Admin: 12/02/23 08:13 Dose: 1 puffs Documented By: JUNE Guaifenesin (Guaifenesin 600 Mg Tabcr) 1,200 mg PO Q12 SRIDHAR Stop: 12/31/23 23:18 Last Admin: 12/03/23 09:42 Dose: 1,200 mg Documented By: Admin: 12/02/23 21:56 Dose: 1,200 mg Documented By: [id number] Admin: 12/02/23 08:13 Dose: 1,200 mg Documented By: Admin: 12/02/23 00:29 Dose: 1,200 mg Documented By: MAC Methylprednisolone 40 mg/ (Syringe) 0.64 mls @ 1.5 mls/min IV Q12H SRIDHAR Stop: 01/01/24 01:59 Last Admin: 12/03/23 02:19 Dose: 1.5 mls/min Documented By: [id number] Admin: 12/02/23 14:32 Dose: 1.5 mls/min Documented By: Admin: 12/02/23 02:08 Dose: 1.5 mls/min Documented By: MAC Insulin Aspart (Insulin Aspart Per Unit Charge) 0 units SC ACHS SRIDHAR Stop: 12/31/23 23:18 Last Admin: 12/03/23 09:51 Dose: 9 units Documented By: ANH Co-signed By: PARRISH Admin: 12/02/23 21:53 Dose: 9 units Documented By: [id number] Co-signed By: FRANKIE Admin: 12/02/23 18:25 Dose: 7 units Documented By: ANH Co-signed By: [email or web address] Admin: 12/02/23 13:58 Dose: 11 units Documented By: ANH Co-signed By: ROSE Admin: 12/02/23 08:07 Dose: 7 units Documented By: JUNE Co-signed By: NGUYEN Admin: 12/02/23 00:07 Dose: 8 units Documented By: MAC Co-signed By: FARSHAD Insulin Glargine (Lantus Per Unit Charge) 5 units SQ BID SRIDHAR Stop: 12/31/23 23:18 Last Admin: 12/03/23 09:51 Dose: 5 units Documented By: ANH Co-signed By: PARRISH Admin: 12/02/23 21:54 Dose: 5 units Documented By: Miladis Co-signed By: FRANKIE Admin: 12/02/23 08:08 Dose: 5 units Documented By: JUNE Co-signed By: NGUYEN Admin: 12/02/23 00:08 Dose: 5 units Documented By: MAC Co-signed By: FARSHAD Levalbuterol HCl (Levalbuterol 1.25 Mg/3 Ml Neb) 1.25 mg NEB Q4R SRIDHAR Stop: 01/01/24 14:59 Last Admin: 12/03/23 11:05 Dose: 1.25 mg Documented By: Admin: 12/03/23 07:53 Dose: 1.25 mg Documented By: Admin: 12/03/23 02:05 Dose: 1.25 mg Documented By: Admin: 12/03/23 00:12 Dose: 1.25 mg Documented By: Admin: 12/02/23 20:05 Dose: 1.25 mg Documented By: Admin: 12/02/23 15:19 Dose: 1.25 mg Documented By: PAULO Levothyroxine Sodium (Levothyroxine Sodium 25 Mcg Tablet) 25 mcg PO DAILYBB [facility] Stop: 01/01/24 06:29 Last Admin: 12/03/23 05:43 Dose: 25 mcg Documented By: Miladis Admin: 12/02/23 05:39 Dose: 25 mcg Documented By: MAC Nystatin (Nystatin Powder 15gm Btl) 1 appln EXT BID SRIDHAR Stop: 01/01/24 08:59 Last Admin: 12/03/23 09:43 Dose: 1 appln Documented By: Admin: 12/02/23 21:56 Dose: 1 appln Documented By: [id number] Admin: 12/02/23 08:15 Dose: 1 appln Documented By: JUNE Pantoprazole Sodium (Pantoprazole 40 Mg Tab) 40 mg PO PM SRIDHAR Stop: 01/01/24 20:59 Last Admin: 12/02/23 21:57 Dose: 40 mg Documented By: [id number] Discontinued Medications Albuterol (Albut/Ipratrop 3mg/0.5mg Neb 3 Ml Vial) 3 ml NEB NOW STA; Protocol Stop: 12/01/23 18:57 Last Admin: 12/01/23 19:18 Dose: 3 ml Documented By: OLMAN Albuterol (Albuterol 0.083% Nebu Soln 3 Ml Vial) 2.5 mg NEB Q2H PRN; Protocol PRN Reason: SOB/Wheeze Stop: 01/01/24 01:57 Last Admin: 12/02/23 10:24 Dose: 2.5 mg Documented By: [id number] Admin: 12/02/23 03:00 Dose: 2.5 mg Documented By: SAMIRA Heparin Sodium (Porcine) (Heparin Sod 5,000 Unit/0.5 Ml Vial) 7,500 units SQ Q12 SRIDHAR Stop: 01/01/24 08:59 Last Admin: 12/02/23 10:05 Dose: 7,500 units Documented By: ANH Magnesium Sulfate/Dextrose (Magnesium Sulfate / D5w) 1 gm in 100 mls @ 50 mls/hr IV Q2H SRIDHAR Stop: 12/02/23 15:14 Last Infusion: 12/02/23 14:06 Dose: Infused Documented By: Admin: 12/02/23 11:43 Dose: 50 mls/hr Documented By: Infusion: 12/02/23 11:43 Dose: Infused Documented By: Admin: 12/02/23 11:35 Dose: 50 mls/hr Documented By: ANH Sodium Chloride (Nss) 500 mls @ 999 mls/hr IV .Q31M ONE Stop: 12/02/23 11:45 Last Infusion: 12/02/23 14:07 Dose: Infused Documented By: Admin: 12/02/23 11:35 Dose: 999 mls/hr Documented By: ANH Heparin Sodium/Dextrose (Heparin Sodium/Dextrose) 25,000 units in 500 mls @ 18 mls/hr IV .Q24H SRIDHAR; Protocol Stop: 01/01/24 11:29 Last Titration: 12/02/23 13:59 Dose: Infused Documented By: NAH Co-signed By: ROSE Admin: 12/02/23 11:35 Dose: 900 units/hr, 18 mls/hr Documented By: ANH Co-signed By: ROSE Lactated Ringer's (Lr) 1,000 mls @ 100 mls/hr IV .Q10H SRIDHAR Stop: 12/03/23 09:44 Last Infusion: 12/03/23 10:37 Dose: Infused Documented By: Infusion: 12/03/23 03:30 Dose: 100 mls/hr Documented By: [id number] Infusion: 12/03/23 01:55 Dose: 0 mls/hr Documented By: [id number] Admin: 12/03/23 00:07 Dose: 100 mls/hr Documented By: [id number] Infusion: 12/02/23 23:58 Dose: Infused Documented By: [id number] Admin: 12/02/23 13:58 Dose: 100 mls/hr Documented By: ANH Ioversol (Optiray 320 125ml) 120 ml IV ONCE ONE Stop: 12/02/23 12:23 Last Admin: 12/02/23 12:17 Dose: 120 ml Documented By: KYRA Discharge Plan Visit Data Chief Complaint: Shortness of Breath/Dyspnea ED Provider: Vipin Villeda Discharge Problem: Asthma exacerbation, Shortness of breath Patient Disposition: Admitted As Inpatient Discharge Instructions Interventions: ED Discharge Assessment Last Done: 12/01/23 22:49
[2023-12-01 19:30] LABS: Albumin Level 4.3 gm/dl (3.4-5.0); BUN Creatinine Ratio 15.8 (10-20); Bilirubin Direct 0.1 mg/dl (0-0.2); Bilirubin,Total 0.4 mg/dl (0.2-1.0); Calcium 10.9 mg/dl (8.6-10.3); Creatinine Clr Calc Pharmacy 55.6 ml/min; Est GFR (African American) 56.8 ml/min; Potassium 4.7 mmol/L (3.5-5.1); Total Protein 7.9 gm/dl (6.0-8.3)
[2023-12-01 19:54] LABS: Base Excess VBG 1.9 mEq/L; HCO3 VBG 28 mmol/L; Oxygen Saturation VBG < 60.0 %; PCO2 VBG 50 mmHg (38-50); PO2 VBG 31 mmHg; pH VBG 7.36 (7.36-7.41)
--- NOTE | 2023-12-01 20:58 | History & Physical Report ---
Date of Service December 01, 2023 Assessment & Plan (1) Asthmatic bronchitis: Plan: -Solulmedrol 40mg IV BID -Guaifenesin -Fluticasone/Vilanterol -Albuterol PRN (2) Hypertension: Plan: -Continue Enalapril (3) Diabetes: Plan: -Lantus 5u BID -ISS History of Present Illness Chief Complaint: shortness of breath Primary Care Provider: Rhona Canales 68yo Female with history of multiple sclerosis, diabetes, hypertension, hypothyroidism presenting with shortness of breath. Patient was recently admitted to [facility] from 09/25/2023 - 10/04/2023 after presenting with generalized weakness secondary to MS flare. She was treated with 3 days of IV Solu-Medrol and [facility]. She followed up with neurology on 11/05/2023 and was started on diroximel fumarate (Vumerity). She was seen by her PCP on 11/18/2023 with complaint of dry cough and increased wheezing. She had been using her albuterol and Advair with some improvement. Patient returns to the ER today with complaint of 5 to 6 days of progressive shortness of breath and wheeze. She was seen by pulmonary and thought to have possible asthmatic bronchitis. she was ordered a CBC with differential and IgE levels with a RAST panel to assess for possible asthmatic bronchitis. After her appointment, she went to [facility] and ate steak. After that she developed worsening shortness of breath as well as edema. No additional complaints Patient reports she has been taking her nebs at home 6 times daily. She took 3 nebs immediately prior to coming to the emergency room. EMS administered 1 DuoNeb, 1 albuterol neb as well as steroids. When she arrived to the ER she was still wheezing therefore was administered another DuoNeb. Allergies Allergy/AdvReac Type Severity Reaction Status Date / Time montelukast [From Oliver] Allergy Mild Unknown Verified 12/01/23 23:00 Fish Containing Products Allergy Unknown Unknown Verified 12/01/23 23:00 shellfish derived Allergy Unknown Verified 12/01/23 23:00 codeine AdvReac Mild NAUSEATED Verified 12/01/23 23:00 Home Medications Medication Instructions Recorded Confirmed Type benazepril 40 mg tablet 40 mg PO QAM 06/25/21 12/01/23 History levothyroxine 25 mcg tablet 25 mcg PO DAILYBB 06/25/21 12/01/23 History metformin 500 mg tablet 500 mg PO BID 06/25/21 12/01/23 History omeprazole 20 mg capsule,delayed 20 mg PO PM 06/25/21 12/01/23 History release aspirin 81 mg tablet,delayed 81 mg PO QAM #30 tabs 08/16/21 12/01/23 Rx release atorvastatin 40 mg tablet 40 mg PO HS 07/20/23 12/01/23 History fluticasone 250 mcg-salmeterol 50 1 inh inhalation BID 07/20/23 12/01/23 History mcg/dose blistr powdr for inhalation cholecalciferol (vitamin D3) 125 5,000 unit PO QAM 07/26/23 12/01/23 History mcg (5,000 unit) tablet docusate sodium 100 mg capsule 100 mg PO PM PRN Constipation 07/26/23 12/01/23 History hbqjrttgtlgs-kygpmggd-ghifqfx-folic 1 tab PO QAM 07/26/23 12/01/23 History acid 400 mcg-vit K1 20 mcg tablet (Women's 50 Plus Advanced) turmeric 400 mg capsule 0 mg PO QAM 07/26/23 12/01/23 History albuterol sulfate 2.5 mg/3 mL 2.5 mg continuous nebulization 09/25/23 12/01/23 History (0.083 %) solution for nebulization DIRECTED PRN Shortness Of Breath Or Wheezing diclofenac potassium 50 mg tablet 50 mg PO TID PRN Pain 09/25/23 12/01/23 History ipratropium bromide 21 mcg (0.03 2 spray intranasal BID 09/25/23 12/01/23 History %) nasal spray vitamin B complex 1 tab PO DAILY 09/25/23 12/01/23 History Wheelchair (Powered) (Power #1 ea 11/05/23 12/01/23 Rx Wheelchair) bumetanide 1 mg tablet 0.5 mg PO DIRECTED PRN .edema 12/01/23 12/01/23 History multivitamin with minerals-folic 1 tab PO DAILY 12/01/23 12/01/23 History acid 80 mcg chewable tablet (Centrum Adult 50 Plus) nystatin 100,000 unit/gram topical 1 applic topical BID 12/01/23 12/01/23 History powder (Klayesta) Past Med/Surg History Problem List Dyspnea on exertion History of UTI Thrush Yeast dermatitis (Acute) Asthmatic bronchitis (Acute) Generalized muscle weakness (Acute) Acute UTI (urinary tract infection) (Acute) Morbid obesity Ventral hernia Asthma Hypothyroidism Hypertension Hypomagnesemia (Acute) Diabetes Multiple sclerosis (Acute) UTI (urinary tract infection) Sepsis Abnormal finding on diagnostic imaging of left kidney Pseudomonas pneumonia Medical History Hypomagnesemia Hypothermia URI (upper respiratory infection) Hypomagnesemia Dyspnea Left-sided weakness DUNCAN (acute kidney injury) Brain TIA Acute respiratory failure with hypoxia Osteoarthritis of knees, bilateral Sinusitis, acute Morbid obesity with BMI of 50.0-59.9, adult Tachy-rowena syndrome GERD (gastroesophageal reflux disease) Hypothyroidism Pancreatitis Thrombocytopenia Peripheral edema Septic shock Hypomagnesemia Fungal dermatitis Asthma Hypertension Diabetes Influenza A Pneumonia Multiple sclerosis Surgical History H/O tubal ligation H/O sinus surgery History of arthroscopic knee surgery Hx of tonsillectomy H/O: hysterectomy No pertinent past surgical history Family History Other Family history non-contributory Social History Smoking Status: Never smoker Second Hand Exposure: No; Do You Dip or Chew Tobacco: No; Hx Alcohol Use: No Hx Substance Use: No Preferred Language: Hebrew Communication Ability: Effective Mold Washer Required: No Beliefs That Will Affect Care: None marital status: Current Living Situation: Spouse Current Living Situation Comment: Spouse and granddaughter How many Children do You have: 2 Other Information That Helps Us Care for You: No Feels Safe at Home: Yes Safety Concerns: Feels Safe At This Time Diet: gluten free during the past year weight has: decreased > 10 lbs Assistive Devices: Bedside Commode and Walker Review of Systems Review of Systems: All systems reviewed & are unremarkable except as noted in HPI & below Physical Exam Physical Exam: General: patient resting comfortably, NAD, non-toxic in appearance, AA&O x 4 Skin: warm, dry, stage II decubitus left buttock, no rashes or lesions HEENT: NC/AT, PERRL, EOMI, anicteric sclera, conjunctiva without injection, external ear normal to inspection and nontender, nares patent, moist mucus membranes, dentition intact, no oropharyngeal lesions, neck supple, trachea midline, no LAD, no thyromegaly, no JVD Heart: +S1/S2, regular, tachycardic, no m/r/g Lungs: diminished breath sounds, scattered end-expiratory wheezing, no rhonchi Abd: +BS, soft, NT/ND, no masses/organomegaly/ascites, large abdominal hernia Ext: warm, 2+ pulses in UE/LE bilaterally, no clubbing/cyanosis or edema Neuro: nonfocal, patient AA&O x 4, speech intact, no facial droop, moving all extremities on command with equal strength 5/5 Results & Data Results & Data Vital Signs (Past 12 Hours) Vital Signs Temp Pulse Pulse Resp BP BP Pulse Ox 12/01/23 20:39 113 H 24 129/90 91 12/01/23 19:20 102 H 27 H 100 12/01/23 19:20 102/59 L 12/01/23 19:10 110 H 22 95 12/01/23 19:00 107 H 23 93 12/01/23 18:50 107 H 22 92 12/01/23 18:41 112 H 26 H 132/76 96 12/01/23 18:41 96 12/01/23 18:41 36.9 C 109 H 24 132/76 96 12/01/23 18:41 12/01/23 18:40 111 H 26 H 95 12/01/23 18:38 110 H 12/01/23 18:37 132/76 12/01/23 18:37 110 H 26 H 94 12/01/23 18:36 110 H 21 94 O2 Del Method 12/01/23 20:39 Room Air 12/01/23 19:20 12/01/23 19:20 12/01/23 19:10 12/01/23 19:00 12/01/23 18:50 12/01/23 18:41 Room Air 12/01/23 18:41 Room Air 12/01/23 18:41 Room Air 12/01/23 18:41 Room Air 12/01/23 18:40 12/01/23 18:38 12/01/23 18:37 12/01/23 18:37 12/01/23 18:36 Laboratory Results Laboratory Results WBC 12.20 K/ul (4.8-10.8) H 12/01/23 18:46 RBC 4.01 M/uL (4.20-5.40) L 12/01/23 18:46 Hgb 11.6 g/dl (12.0-16.0) L 12/01/23 18:46 Hct 37.0 % (37.0-47.0) 12/01/23 18:46 MCV 92.3 fL (80.0-100.0) 12/01/23 18:46 MCH 28.9 pg (25.0-34.0) 12/01/23 18:46 MCHC 31.4 g/dL (32.0-36.0) L 12/01/23 18:46 RDW Std Deviation 60.5 fL (36.4-46.3) H 12/01/23 18:46 RDW Coeff of Kaia 18.2 % (11.5-14.5) H 12/01/23 18:46 Plt Count 326 K/uL (130-400) 12/01/23 18:46 MPV 11.4 fL (9.4-12.4) 12/01/23 18:46 Immature Gran % (Auto) 0.4 % 12/01/23 18:46 Neut % (Auto) 49.3 % 12/01/23 18:46 Lymph % (Auto) 38.9 % 12/01/23 18:46 [place] % (Auto) 8.5 % 12/01/23 18:46 Eos % (Auto) 2.5 % 12/01/23 18:46 Baso % (Auto) 0.4 % 12/01/23 18:46 Neut # (Auto) 6.01 K/uL (1.40-6.50) 12/01/23 18:46 Lymph # (Auto) 4.75 K/uL (1.20-3.40) H 12/01/23 18:46 [place] # (Auto) 1.04 K/uL (0.11-0.59) H 12/01/23 18:46 Eos # (Auto) 0.30 K/uL (0.00-0.50) 12/01/23 18:46 Baso # (Auto) 0.05 K/uL (0.00-0.20) 12/01/23 18:46 Immature Gran # (Auto) 0.05 K/uL (0.01-0.20) 12/01/23 18:46 VBG pH 7.36 (7.36-7.41) 12/01/23 19:43 VBG pCO2 50 mmHg (38-50) 12/01/23 19:43 VBG pO2 31 mmHg 12/01/23 19:43 VBG HCO3 28 mmol/L 12/01/23 19:43 VBG O2 Saturation < 60.0 % 12/01/23 19:43 VBG Base Excess 1.9 mEq/L 12/01/23 19:43 Sodium 142 mmol/L (136-145) 12/01/23 18:46 Potassium 4.7 mmol/L (3.5-5.1) 12/01/23 18:46 Chloride 106 mmol/L (98-107) 12/01/23 18:46 Carbon Dioxide 26 mmol/L (21-32) 12/01/23 18:46 Anion Gap 10 (3-11) 12/01/23 18:46 BUN 18 mg/dl (6-23) 12/01/23 18:46 Creatinine 1.14 mg/dl (0.6-1.2) 12/01/23 18:46 Est Cr Clr Drug Dosing 55.6 ml/min 12/01/23 18:46 Est GFR ( Amer) 56.8 ml/min 12/01/23 18:46 Est GFR (Non-Af Amer) 49.0 ml/min 12/01/23 18:46 BUN/Creatinine Ratio 15.8 (10-20) 12/01/23 18:46 Glucose 125 mg/dl (70-99(Fasting)) H 12/01/23 18:46 POC Glucose 280 mg/dl (70-99) H 12/01/23 23:21 Calcium 10.9 mg/dl (8.6-10.3) H 12/01/23 18:46 Total Bilirubin 0.4 mg/dl (0.2-1.0) 12/01/23 18:46 Direct Bilirubin 0.1 mg/dl (0-0.2) 12/01/23 18:46 AST 46 U/L (13-39) H 12/01/23 18:46 ALT 36 U/L (7-52) 12/01/23 18:46 Alkaline Phosphatase 114 U/L (34-104) H 12/01/23 18:46 Total Protein 7.9 gm/dl (6.0-8.3) 12/01/23 18:46 Albumin 4.3 gm/dl (3.4-5.0) 12/01/23 18:46 Lipase 36 U/L (11-82) 12/01/23 18:46 Adenovirus (PCR) Not Detected (NotDetected) 12/02/23 Unknown B. pertussis DNA (PCR) Not Detected (NotDetected) 12/02/23 Unknown B.parapertussis DNA PCR Not Detected (NotDetected) 12/02/23 Unknown C. pneumoniae DNA (PCR) Not Detected (NotDetected) 12/02/23 Unknown Coronavirus OC43 (PCR) Not Detected (NotDetected) 12/02/23 Unknown Coronavirus HKU1 (PCR) Not Detected (NotDetected) 12/02/23 Unknown Coronavirus 229E (PCR) Not Detected (NotDetected) 12/02/23 Unknown SARS-CoV-2 (PCR) Not Detected (NotDetected) 12/02/23 Unknown Coronavirus NL63 (PCR) Not Detected (NotDetected) 12/02/23 Unknown Human Metapneumovir PCR Not Detected (NotDetected) 12/02/23 Unknown Influenza Type A (PCR) Not Detected (NotDetected) 12/02/23 Unknown Influenza Type B (PCR) Not Detected (NotDetected) 12/02/23 Unknown M. pneumoniae (PCR) Not Detected (NotDetected) 12/02/23 Unknown Parainfluenza 1 (PCR) Not Detected (NotDetected) 12/02/23 Unknown Parainfluenza 2 (PCR) Not Detected (NotDetected) 12/02/23 Unknown Parainfluenza 3 (PCR) Not Detected (NotDetected) 12/02/23 Unknown Parainfluenza 4 (PCR) Not Detected (NotDetected) 12/02/23 Unknown RSV (PCR) Not Detected (NotDetected) 12/02/23 Unknown Entero/Rhino (PCR) Not Detected (NotDetected) 12/02/23 Unknown PG Care Time/CCT Total # of Minutes Spent Total Time Spent with Patient: Total time spent is greater than 50% in coordination of care (as documented) at patient's floor/unit and/or counseling patient: Coding Level of Care Code 25452 INT INP/OBS CARE 375MIN Diagnoses Asthmatic bronchitis J45.901 Asthma complication type: with acute exacerbation Asthma persistence: unspecified Asthma severity: unspecified severity Hypertension I10 Diabetes E11.9 (1) Asthmatic bronchitis Asthma complication type: with acute exacerbation Asthma persistence: unspecified Asthma severity: unspecified severity Qualified Code(s): J45.901 - Unspecified asthma with (acute) exacerbation
[2023-12-01] MEDS ORDERED: GLUCOSE 10 TAB/TUBE PO PRN (23:19)
[2023-12-01] MEDS ORDERED: GLUCAGON FOR INJ 1 MG VIAL SQ PRN (23:19)
[2023-12-01] MEDS ORDERED: CARBOHYDRATES FOR HYPOGLYCEMIA PO PRN (23:19)
[2023-12-01] MEDS ORDERED: DEXTROSE 50% 50 ML SYRINGE IV PRN (23:19)
[2023-12-01] MEDS ORDERED: GLUCOSE 40% GEL 15 GM TUBE PO PRN (23:19)
[2023-12-01] MEDS ORDERED: ONDANSETRON INJ 2 MG/ML 2 ML VIAL IV PRN (23:19)
[2023-12-02] MEDS: INSULIN ASPART PER UNIT CHARGE SC SCH (00:07)
[2023-12-02] MEDS: LANTUS PER UNIT CHARGE SQ SCH (00:08)
[2023-12-02] MEDS: guaiFENesin 600 MG TABCR PO SCH (00:29)
[2023-12-02 01:01] LABS: Adenovirus PCR Not Detected (NotDetected); Bordetella parapertussis PCR Not Detected (NotDetected); Bordetella pertussis PCR Not Detected (NotDetected); Chlamydia pneumoniae PCR Not Detected (NotDetected); Coronavirus 229E PCR Not Detected (NotDetected); Coronavirus CoV-2 (COVID19)PCR Not Detected (NotDetected); Coronavirus HKU1 PCR Not Detected (NotDetected); Coronavirus NL63 PCR Not Detected (NotDetected); Coronavirus OC43PCR Not Detected (NotDetected); Human Metapneumovirus PCR Not Detected (NotDetected); Influenza A PCR Not Detected (NotDetected); Influenza B PCR Not Detected (NotDetected); Mycoplasma pneumoniae PCR Not Detected (NotDetected); Parainfluenza Virus 1 PCR Not Detected (NotDetected); Parainfluenza Virus 2 PCR Not Detected (NotDetected); Parainfluenza Virus 3 PCR Not Detected (NotDetected); Parainfluenza Virus 4 PCR Not Detected (NotDetected); Respiratory Syncytial VirusPCR Not Detected (NotDetected); Rhinovirus/Enterovirus PCR Not Detected (NotDetected)
[2023-12-02] MEDS: ACETAMINOPHEN 325 MG TAB PO PRN (02:06)
[2023-12-02] MEDS: methylPREDNISolone 40 MG in SYRINGE 0 ML IV SCH (02:08)
[2023-12-02] MEDS: ALBUTEROL 0.083% NEBU SOLN 3 ML VIAL NEB PRN (03:00)
[2023-12-02] MEDS: LEVOTHYROXINE SODIUM 25 MCG TABLET PO SCH (05:39)
[2023-12-02 06:10] LABS: Albumin Level 3.7 gm/dl (3.4-5.0); BUN Creatinine Ratio 20.4 (10-20); Bilirubin Direct 0.1 mg/dl (0-0.2); Bilirubin,Total 0.4 mg/dl (0.2-1.0); Creatinine Clr Calc Pharmacy 55.6 ml/min; Est GFR (African American) 57.4 ml/min; Est GFR (Non-African American) 49.6 ml/min; Magnesium 1.4 mg/dl (1.7-2.4); Phosphorus 2.8 mg/dl (2.5-4.9); Potassium 4.8 mmol/L (3.5-5.1); Total Protein 6.9 gm/dl (6.0-8.3)
[2023-12-02 06:19] LABS: Hematocrit (blood only) 32.6 % (37.0-47.0); Hemoglobin 10.4 g/dl (12.0-16.0); Mean Corpuscular Hemoglobin 28.9 pg (25.0-34.0); Mean Corpuscular Hgb Conc 31.9 g/dL (32.0-36.0); Mean Corpuscular Volume 90.6 fL (80.0-100.0); Mean Platelet Volume 11.9 fL (9.4-12.4); Platelet Count 292 K/uL (130-400); RDW Standard Deviation 58.9 fL (36.4-46.3); White Blood Count 10.37 K/ul (4.8-10.8)
--- NOTE | 2023-12-02 07:37 | XRay Report ---
XR chest 1V portable HISTORY: COPD COMPARISON: Chest 10/30/2023. FINDINGS: Slightly rotated study. No pneumothorax. Mild elevation of the left hemidiaphragm with left basilar linear density. This is similar to the prior study and favors subsegmental atelectasis or sc arring. Otherwise, lungs are clear. There are calcifications within the aortic knob. No pleural effus ions. Degenerative changes within the shoulders. IMPRESSION: Mild elevation of the left hemidiaphragm with a left basilar linear density. This favors subsegmental atelectasis or scarring. ACT 112: Negative or not required by law. Electronically signed by: Remington Altamirano M.D. 12/02/2023 7:36 AM
[2023-12-02] MEDS: ASPIRIN 81 MG ECTAB PO SCH (08:10)
[2023-12-02] MEDS: ENALAPRIL MALEATE 10 MG TAB PO SCH (08:11)
[2023-12-02 08:12] LABS: D Dimer 570 ug/L FEU (0-500)
[2023-12-02] MEDS: FLUTICASONE/VILANTEROL 200/25MCG 14 PUFFS/INHALER INH SCH (08:13)
[2023-12-02] MEDS: NYSTATIN POWDER 15GM BTL EXT SCH (08:15)
[2023-12-02] MEDS: HEPARIN SOD 5,000 UNIT/0.5 ML VIAL SQ SCH (10:05)
[2023-12-02] MEDS ORDERED: SODIUM CHLORIDE 0.9% 1,000 ML IV SCH (11:04)
[2023-12-02] MEDS ORDERED: Heparin IV Adult Wt-Based Low-Dose *NO* INITIAL Bolus Protocol IV SCH (11:15)
[2023-12-02] MEDS: SODIUM CHLORIDE 0.9% 500 ML IV ONE (11:35)
[2023-12-02] MEDS: HEPARIN SODIUM/DEXTROSE 25,000 UNITS/500 ML BAG IV SCH (11:35)
[2023-12-02] MEDS: MAGNESIUM SULFATE / D5W 1 GM/100 ML BAG IV SCH (11:35)
[2023-12-02 11:43] LABS: Base Excess ABG 0.7 mEq/L (-9-1.8); HCO3 ABG 24 mmol/L (19-24); Oxygen Saturation ABG 96.9 % (90-95); PCO2 ABG 32 mmHg (35-46); PO2 ABG 91 mmHg (80-95); pH ABG 7.48 (7.35-7.45)
[2023-12-02 11:44] LABS: Allen Test Pos (Pos)
[2023-12-02] MEDS: OPTIRAY 320 125ml IV ONE (12:17)
--- NOTE | 2023-12-02 13:06 | CT Scan Report ---
CHEST CTA for PULMONARY ARTERIES CT DOSE: 895.31 mGy.cm HISTORY: Shortness of breath. Cough. TECHNIQUE: Multiaxial CT images of the chest were performed following the intravenous administration of contrast to evaluate the pulmonary arteries. 3D/Maximal intensity projection images were also obta ined. Sagittal and coronal reformations were also reviewed. A dose lowering technique was utilized a dhering to the principles of ALARA. COMPARISON STUDY: Chest CTA 07/25/2021. FINDINGS: No evidence for an aortic dissection. There is calcified plaque within the normal caliber t horacic aorta. The heart is borderline enlarged. No pleural or pericardial effusions. No filling defe cts within the pulmonary arteries to suggest a pulmonary embolus. There is mild elevation left hemidi aphragm, unchanged. Normal thyroid gland. No mediastinal or hilar lymphadenopathy. Limited views of t he upper abdomen demonstrate hepatic steatosis and a normal spleen. The visualized adrenal glands are unremarkable. 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 Normal esophagus. No acute fractures . No pneumothorax. The central airways are patent. Bibasilar linear densities have improved. This fav ors subsegmental atelectasis. A superimposed pneumonia would be difficult to exclude but considered l ess likely. No evidence for pulmonary edema. IMPRESSION: 1. No evidence for a pulmonary embolus. 2. Mild elevation of the left hemidiaphragm, unchanged. 3. Bibasilar linear densities favor subsegmental atelectasis. This has improved in the interval. A miller perimposed pneumonia is considered less likely but not entirely excluded. 4. Hepatic steatosis. ACT 112: Negative or not required by law. Electronically signed by: Remington Altamirano M.D. 12/02/2023 1:05 PM
[2023-12-02] MEDS ORDERED: LEVALBUTEROL 1.25 MG/3 ML NEB NEB PRN (13:23)
[2023-12-02] MEDS: LACTATED RINGER'S 1,000 ML IV SCH (13:58)
--- NOTE | 2023-12-02 14:21 | XCELERA ---
[id number]
[2023-12-02] MEDS: LEVALBUTEROL 1.25 MG/3 ML NEB NEB SCH (15:19)
--- NOTE | 2023-12-02 15:49 | Electrocardiogram Report ---
Test Reason : Blood Pressure : / mmHG Vent. Rate : 105 BPM Atrial Rate : 105 BPM P-R Int : 186 ms QRS Dur : 090 ms QT Int : 342 ms P-R-T Axes : 041 -24 000 degrees QTc Int : 452 ms Sinus tachycardia Poor R wave progression, consider anterior VT vs. lead placement vs. LVH Abnormal ECG When compared with ECG of 25-SEP-2023 16:42, Questionable change in initial forces of Lateral leads Confirmed by Vernon Sullivan ([id number]) on 12/02/2023 3:49:35 PM Referred By: Rhona Canales Confirmed By:Vernon Sullivan
--- NOTE | 2023-12-02 16:24 | Electrocardiogram Report ---
Test Reason : Blood Pressure : / mmHG Vent. Rate : 123 BPM Atrial Rate : 125 BPM P-R Int : 000 ms QRS Dur : 082 ms QT Int : 312 ms P-R-T Axes : 000 -11 006 degrees QTc Int : 446 ms Accelerated Junctional rhythm with retrograde conduction Cannot rule out Anterior infarct (cited on or before 01-DEC-2023) Abnormal ECG When compared with ECG of 01-DEC-2023 18:50, (unconfirmed) Junctional rhythm has replaced Sinus rhythm Confirmed by Vernon Sullivan ([id number]) on 12/02/2023 4:23:33 PM Referred By: Rhona Canales Confirmed By:Vernon Sullivan
--- NOTE | 2023-12-02 18:08 | Hospitalist Progress Note ---
Date of Service December 02, 2023 Assessment & Plan (1) Asthmatic bronchitis: Plan: Progressive dyspnea, likely multifactorial. Suspect sx are related to some degree of underlying reactive airways in the setting of restrictive lung disease due to body habitus +/- generalized weakness from her MS. She appears comfortable sating in low 90s, suggesting some degree of chronicity. Will continue to treat as an asthma flare and monitor. -Slightly elevated d-dimer. Chest CTA negative for pe, no evidence of infectious process, no pulmonary edema -ABG showing mild respiratory alkalosis, no hypercapnia which is reassuring -Continue Solulmedrol 40mg IV BID -Continue Guaifenesin -Continue Fluticasone/Vilanterol -Switch Albuterol to Levalbuterol PRN due to tachycardia (2) Edema: Plan: Bilateral lower extremity edema, nontender and symmetric. Onset after meal at [employer]. Improving today per pt. Suspect venous stasis. -Echo pending (3) Hypertension: Plan: Chronic/stable -Holding home enalapril due to low BPs (4) Diabetes: Plan: -Lantus 5u BID -ISS Plan FEN/GI: Carb consistent, Heart Healthy DVT ppx: Lovenox 40mg Code: Full Dispo: Med surg w/ tele Admission and Anticipated Discharge Date Admission Date: December 01, 2023 Supervising Physician Co-Signing Physician Notes I personally examined the patient and verified all ray points of history and exam, discussed case, and agree with decision making with A John BARROW[address] Dr Hines Feeling better, breathing easier than earlier today. Vitals noted, in general she is awake and alert pleasant no distress. HEENT normocephalic atraumatic mucous membranes moist. Breathing unlabored she does have faint diffuse wheezing no conversational dyspnea. Labs and diagnostics noted. Shortness of breathat face value an asthma exacerbation, but a very complicated situation given her underlying what appears to be a degree of COPD/obstructive lung disease, but also restrictive lung disease likely from OHS and neuromuscular weakness. Fortunately not hypercapnic, appears to be improvingcontinue current care. Otherwise as above. Subjective 68yo Female with history of MS, DM, HTN, hypothyroidism, ?asthmatic bronchitis on Day 1 of admission due to shortness of breath and LE swelling. Pt seen and examined at bedside. No acute events overnight. She reports her LE swelling has improved moderately since yesterday. Still mildly SOB at rest. Cliff es any chest pains. She believes her dyspnea is due to allergies. Physical Exam Physical Exam: General: Comfortable, no acute distress HEENT: normal conjunctivae, anicteric sclerae, mucous membranes moist Heart: Regular rhythm, +tachycardia, No murmurs. Lungs: No obvious respiratory distress, +tachypneic, +diminished lungs, +wheezing in all lungs collazo Abdomen: Soft, non tender, normal bowel sounds Extremities: 2+ nonpitting edema bilateral LE, nontender/nonerythematous Skin: Warm, dry, pink Results & Data Results & Data Vital Signs (Past 12 Hours) Vital Signs Temp Pulse Pulse Resp BP BP Pulse Ox 12/02/23 10:29 111 H 18 89 L 12/02/23 09:19 36.7 C 125 H 26 H 98/63 L 89 L 12/02/23 08:17 12/02/23 07:03 102/68 12/02/23 06:57 36.8 C 133 H 18 86/58 L 92 12/02/23 03:01 118 H 18 95 12/02/23 00:40 12/01/23 23:28 36.8 C 110 H 20 132/76 93 O2 Del Method 12/02/23 10:29 Room Air 12/02/23 09:19 Room Air 12/02/23 08:17 Room Air 12/02/23 07:03 12/02/23 06:57 Room Air 12/02/23 03:01 Room Air 12/02/23 00:40 Room Air 12/01/23 23:28 Room Air (1) Asthmatic bronchitis Asthma complication type: with acute exacerbation Asthma persistence: unspecified Asthma severity: unspecified severity Qualified Code(s): J45.901 - Unspecified asthma with (acute) exacerbation
[2023-12-02 18:40] LABS: ANTI-Xa, UFH(UnfractionatedHep < 0.10 IU/ml (0.3-0.7)
--- NOTE | 2023-12-02 20:13 | Billing Data ---
Date of Service December 02, 2023 Coding Level of Care Code 41832 SUB INP/OBS CARE
[2023-12-02] MEDS ORDERED: HEPARIN SOD 5,000 UNIT/0.5 ML VIAL SQ SCH (21:00)
[2023-12-02] MEDS: PANTOprazole 40 MG TAB PO SCH (21:57)
[2023-12-02] MEDS: ATORVASTATIN 40 MG TAB PO SCH (21:57)
[2023-12-03 07:43] LABS: Hematocrit (blood only) 28.5 % (37.0-47.0); Mean Corpuscular Hemoglobin 28.8 pg (25.0-34.0); Mean Corpuscular Hgb Conc 31.6 g/dL (32.0-36.0); Mean Corpuscular Volume 91.3 fL (80.0-100.0); Mean Platelet Volume 11.8 fL (9.4-12.4); Platelet Count 257 K/uL (130-400); RDW Coefficient of Variation 18.7 % (11.5-14.5); RDW Standard Deviation 61.4 fL (36.4-46.3); Red Blood Count 3.12 M/uL (4.20-5.40); White Blood Count 13.39 K/ul (4.8-10.8)
[2023-12-03 08:07] LABS: Calcium 9.6 mg/dl (8.6-10.3); Potassium 5.2 mmol/L (3.5-5.1)
[2023-12-03 08:13] LABS: BUN Creatinine Ratio 22.9 (10-20); Creatinine Clr Calc Pharmacy 53.5 ml/min; Est GFR (African American) 54.5 ml/min
[2023-12-03] MEDS: ENOXAPARIN INJ 40 MG/0.4 ML SYR SQ SCH (09:43)
[2023-12-03] MEDS: DOCUSATE SODIUM 100 MG CAP PO PRN (09:51)
[2023-12-03] MEDS: LANTUS PER UNIT CHARGE SQ SCH (14:59)
--- NOTE | 2023-12-03 17:06 | Discharge Summary ---
Date of Service December 03, 2023 Admission HPI Per Admitting Provider 68yo Female with history of multiple sclerosis, diabetes, hypertension, hypothyroidism presenting with shortness of breath. Patient was recently admitted to [facility] from 09/25/2023 - 10/04/2023 after p resenting with generalized weakness secondary to MS flare. She was treated with 3 days of IV Solu-Medrol and [facility]. She followed up with neurology on 11/05/2023 and was started on diroximel fumarate (Vumerity). She was seen by her PCP on 11/18/2023 with complaint of dry cough and increased wheezing. She had been using her albuterol and Advair with some improvement. Patient returns to the ER today with complaint of 5 to 6 days of progressive shortness of breath and wheeze. She was seen by pulmonary and thought to have possible asthmatic bronchitis. she was ordered a CBC with differential and IgE levels with a RAST panel to assess for possible asthmatic bronchitis. After her appointment, she went to [facility] and ate steak. After that she developed worsening shortness of breath as well as edema. No additional complaints Patient reports she has been taking her nebs at home 6 times daily. She took 3 nebs immediately prior to coming to the emergency room. EMS administered 1 DuoNeb, 1 albuterol neb as well as steroids. When she arrived to the ER she was still wheezing therefore was administered another DuoNeb. Principal Diagnosis Asthma exacerbation Discharge Exam General: Comfortable, no acute distress HEENT: normal conjunctivae, anicteric sclerae, mucous membranes moist Heart: Regular rhythm, +tachycardia, No murmurs. Lungs: No obvious respiratory distress, +diminished lungs, +wheezing in all lungs collazo Abdomen: Soft, non tender, normal bowel sounds Extremities: 2+ nonpitting edema bilateral LE, nontender/nonerythematous Skin: Warm, dry, pink Discharge Data Allergies Allergy/AdvReac Type Severity Reaction Status Date / Time montelukast [From Singulair] Allergy Mild Unknown Verified 12/01/23 23:00 Fish Containing Products Allergy Unknown Unknown Verified 12/01/23 23:00 shellfish derived Allergy Unknown Verified 12/01/23 23:00 codeine AdvReac Mild NAUSEATED Verified 12/01/23 23:00 Consultations 12/01/23 20:52 ED Decision to Admit Stat Ordered Studies Laboratory Results WBC 13.39 K/ul (4.8-10.8) H 12/03/23 06:22 RBC 3.12 M/uL (4.20-5.40) L 12/03/23 06:22 Hgb 9.0 g/dl (12.0-16.0) L 12/03/23 06:22 Hct 28.5 % (37.0-47.0) L 12/03/23 06:22 MCV 91.3 fL (80.0-100.0) 12/03/23 06:22 MCH 28.8 pg (25.0-34.0) 12/03/23 06: MCHC 31.6 g/dL (32.0-36.0) L 12/03/23 06:22 RDW Std Deviation 61.4 fL (36.4-46.3) H 12/03/23 06:22 RDW Coeff of Kaia 18.7 % (11.5-14.5) H 12/03/23 06:22 Plt Count 257 K/uL (130-400) 12/03/23 06:22 MPV 11.8 fL (9.4-12.4) 12/03/23 06:22 Immature Gran % (Auto) 0.4 % 12/01/23 18:46 Neut % (Auto) 49.3 % 12/01/23 18:46 Lymph % (Auto) 38.9 % 12/01/23 18:46 [place] % (Auto) 8.5 % 12/01/23 18:46 Eos % (Auto) 2.5 % 12/01/23 18:46 Baso % (Auto) 0.4 % 12/01/23 18:46 Neut # (Auto) 6.01 K/uL (1.40-6.50) 12/01/23 18:46 Lymph # (Auto) 4.75 K/uL (1.20-3.40) H 12/01/23 18:46 [place]owndes # (Auto) 1.04 K/uL (0.11-0.59) H 12/01/23 18:46 Eos # (Auto) 0.30 K/uL (0.00-0.50) 12/01/23 18:46 Baso # (Auto) 0.05 K/uL (0.00-0.20) 12/01/23 18:46 Immature Gran # (Auto) 0.05 K/uL (0.01-0.20) 12/01/23 18:46 D-Dimer 570 ug/L FEU (0-500) H* 12/02/23 07:30 Heparin Anti-Xa, Unfract < 0.10 IU/ml (0.3-0.7) L 12/02/23 17:46 ABG pH 7.48 (7.35-7.45) H 12/02/23 11:33 ABG pCO2 32 mmHg (35-46) L 12/02/23 11:33 ABG pO2 91 mmHg (80-95) 12/02/23 11:33 ABG HCO3 24 mmol/L (19-24) 12/02/23 11:33 ABG O2 Saturation 96.9 % (90-95) H 12/02/23 11:33 ABG Base Excess 0.7 mEq/L (-9-1.8) 12/02/23 11:33 Abram Test Pos (Pos) 12/02/23 11:33 VBG pH 7.36 (7.36-7.41) 12/01/23 19:43 VBG pCO2 50 mmHg (38-50) 12/01/23 19:43 VBG pO2 31 mmHg 12/01/23 19:43 VBG HCO3 28 mmol/L 12/01/23 19:43 VBG O2 Saturation < 60.0 % 12/01/23 19:43 VBG Base Excess 1.9 mEq/L 12/01/23 19:43 Oxygen Given ROOM AIR 12/02/23 11:33 Sodium 139 mmol/L (136-145) 12/03/23 06:22 Potassium 5.2 mmol/L (3.5-5.1) H 12/03/23 06:22 Chloride 108 mmol/L (98-107) H 12/03/23 06:22 Carbon Dioxide 24 mmol/L (21-32) 12/03/23 06:22 Anion Gap 7 (3-11) 12/03/23 06:22 BUN 27 mg/dl (6-23) H 12/03/23 06:22 Creatinine 1.18 mg/dl (0.6-1.2) 12/03/23 06:22 Est Cr Clr Drug Dosing 53.5 ml/min 12/03/23 06:22 Est GFR ( Amer) 54.5 ml/min 12/03/23 06:22 Est GFR (Non-Af Amer) 47.0 ml/min 12/03/23 06:22 BUN/Creatinine Ratio 22.9 (10-20) H 12/03/23 06:22 Glucose 258 mg/dl (70-99(Fasting)) H 12/03/23 06:22 POC Glucose 315 mg/dl (70-99) H* 12/03/23 12:23 Calcium 9.6 mg/dl (8.6-10.3) 12/03/23 06:22 Phosphorus 2.8 mg/dl (2.5-4.9) 12/02/23 05:15 Magnesium 2.0 mg/dl (1.7-2.4) 12/03/23 06:22 Total Bilirubin 0.4 mg/dl (0.2-1.0) 12/02/23 05:15 Direct Bilirubin 0.1 mg/dl (0-0.2) 12/02/23 05:15 AST 33 U/L (13-39) 12/02/23 05:15 ALT 29 U/L (7-52) 12/02/23 05:15 Alkaline Phosphatase 92 U/L (34-104) 12/02/23 05:15 B-Natriuretic Peptide 106 pg/ml (0-100) H 12/02/23 05:15 Total Protein 6.9 gm/dl (6.0-8.3) 12/02/23 05:15 Albumin 3.7 gm/dl (3.4-5.0) 12/02/23 05:15 Lipase 36 U/L (11-82) 12/01/23 18:46 Procalcitonin 0.14 ng/ml (0-0.5) 12/02/23 05:15 Adenovirus (PCR) Not Detected (NotDetected) 12/02/23 Unknown B. pertussis DNA (PCR) Not Detected (NotDetected) 12/02/23 Unknown B.parapertussis DNA PCR Not Detected (NotDetected) 12/02/23 Unknown C. pneumoniae DNA (PCR) Not Detected (NotDetected) 12/02/23 Unknown Coronavirus OC43 (PCR) Not Detected (NotDetected) 12/02/23 Unknown Coronavirus HKU1 (PCR) Not Detected (NotDetected) 12/02/23 Unknown Coronavirus 229E (PCR) Not Detected (NotDetected) 12/02/23 Unknown SARS-CoV-2 (PCR) Not Detected (NotDetected) 12/02/23 Unknown Coronavirus NL63 (PCR) Not Detected (NotDetected) 12/02/23 Unknown Human Metapneumovir PCR Not Detected (NotDetected) 12/02/23 Unknown Influenza Type A (PCR) Not Detected (NotDetected) 12/02/23 Unknown Influenza Type B (PCR) Not Detected (NotDetected) 12/02/23 Unknown M. pneumoniae (PCR) Not Detected (NotDetected) 12/02/23 Unknown Parainfluenza 1 (PCR) Not Detected (NotDetected) 12/02/23 Unknown Parainfluenza 2 (PCR) Not Detected (NotDetected) 12/02/23 Unknown Parainfluenza 3 (PCR) Not Detected (NotDetected) 12/02/23 Unknown Parainfluenza 4 (PCR) Not Detected (NotDetected) 12/02/23 Unknown RSV (PCR) Not Detected (NotDetected) 12/02/23 Unknown Entero/Rhino (PCR) Not Detected (NotDetected) 12/02/23 Unknown Impressions Chest X-Ray 12/01/23 18:56 XR chest 1V portable HISTORY: COPD COMPARISON: Chest 10/30/2023. FINDINGS: Slightly rotated study. No pneumothorax. Mild elevation of the left hemidiaphragm with left basilar linear density. This is similar to the prior study and favors subsegmental atelectasis or scarring. Otherwise, lungs are clear. There are calcifications within the aortic knob. No pleural effusions. Degenerative changes within the shoulders. IMPRESSION: Mild elevation of the left hemidiaphragm with a left basilar linear density. This favors subsegmental atelectasis or scarring. ACT 112: Negative or not required by law. Electronically signed by: Remington Altamirano M.D. 12/02/2023 7:36 AM Chest CTA 12/02/23 08:24 CHEST CTA for PULMONARY ARTERIES CT DOSE: 895.31 mGy.cm HISTORY: Shortness of breath. Cough. TECHNIQUE: Multiaxial CT images of the chest were performed following the intravenous administration of contrast to evaluate the pulmonary arteries. 3D/Maximal intensity projection images were also obtained. Sagittal and coronal reformations were also reviewed. A dose lowering technique was utilized adhering to the principles of ALARA. COMPARISON STUDY: Chest CTA 07/25/2021. FINDINGS: No evidence for an aortic dissection. There is calcified plaque within the normal caliber thoracic aorta. The heart is borderline enlarged. No pleural or pericardial effusions. No filling defects within the pulmonary arteries to suggest a pulmonary embolus. There is mild elevation left hemidiaphragm, unchanged. Normal thyroid gland. No mediastinal or hilar lymphadenopathy. Limited views of the upper abdomen demonstrate hepatic steatosis and a normal spleen. The visualized adrenal glands are unremarkable. 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 Normal esophagus. No acute fractures. No pneumothorax. The central airways are patent. Bibasilar linear densities have improved. This favors subsegmental atelectasis. A superimposed pneumonia would be difficult to exclude but considered less likely. No evidence for pulmonary edema. IMPRESSION: 1. No evidence for a pulmonary embolus. 2. Mild elevation of the left hemidiaphragm, unchanged. 3. Bibasilar linear densities favor subsegmental atelectasis. This has improved in the interval. A superimposed pneumonia is considered less likely but not entirely excluded. 4. Hepatic steatosis. ACT 112: Negative or not required by law. Electronically signed by: Remington Altamirano M.D. 12/02/2023 1:05 PM Hospital Course (1) Asthmatic bronchitis: (2) Edema: (3) Hypertension: (4) Diabetes: Plan Asthma Exacerbation: Progressive dyspnea, likely multifactorial. Suspect sx are related to some degree of underlying reactive airways in the setting of restrictive lung disease due to body habitus +/- generalized weakness from her MS. She appears comfortable sating in low 90s, suggesting some degree of chronicity. Treated her increased dyspnea as an asthma flare and sx improved significantly over course of her admission. -Slightly elevated d-dimer. Chest CTA negative for pe, no evidence of infectious process, no pulmonary edema -ABG showed mild respiratory alkalosis, no hypercapnia which was reassuring -Discharged on steroid taper -Resume home inhalers -Recommend to f/u with pulmonology when allergy testing results return, as suspect this could be contributing to severity of her asthma. Edema: Bilateral lower extremity edema, nontender and symmetric. Onset after meal at [employer]. Improving today per pt. Suspect venous stasis. -Echo revealing EF 65-70% and without significant changes from previous study. Hypertension: Chronic/stable -Home enalapril was held due to low BPs, may restart after discharge. Diabetes Mellitus: -Continue home regimen Total Time Total Time Spent Total Time Spent (In Minutes): <30 minutes. Discharge Plan Discharge Items Patient Disposition: Home - Self-Care Reason For Visit: SHORTNESS OF BREATH Discharge Diagnosis: asthma exacerbation Activity: Resume your previous activity Non-emergency contact: Primary Care Provider Call non-emergency contact if: you have any medication questions, your symptoms worsen and you have a fever Follow-up/Referrals: Rhona Canales [Primary Care Provider] - Diet: Carb Consistent or DM2 Addtl Attending Provider Instructions: You were admitted to the hospital for an asthma exacerbation. You were treated with breathing treatments and were also started on a course of oral steroids. Upon discharge, we recommend that you complete this steroid taper (instructions written below). 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 A discharge summary will be sent to your primary care physician to ensure continuity of care. Please bring this discharge summary with you to your next office appointment so that your provider can review it at that time. Medications: Your medication list has been reviewed and reconciled upon discharge to ensure accuracy and continuity of care. An updated list of all your medications is included with your hospital discharge paperwork. Please review this list closely and make note of any changes to your medications. New medications: Prednisone: Please take 60mg (6 tabs) once daily for 2 days, then take 50mg once daily for 2 days, then take 40mg once daily for 2 days, then take 30 mg once daily for 2 days, then take 20mg once daily for 2 days, then take 10mg once daily for 2 days. We recommend taking your steroid earlier in the day to avoid potential for insomnia. Please take with food. Follow up appointments: - Make a follow up appointment with your PCP within the next week. It is very important that you follow up with them shortly after discharge from the hospital. - Keep all of your follow up appointments as already scheduled. If you cannot make an appointment, notify your provider. CONTACT YOUR PRIMARY CARE PROVIDER if you experience any of the following: - Difficulty following your treatment plan - Difficulty taking any of your medications CALL 911 OR GO TO THE EMERGENCY DEPARTMENT if you experience any of the following: - Sudden, severe abdominal pain or nausea/vomiting - Severe chest pain or chest pain that radiates to your jaw or arm - Sudden, severe shortness of breath or difficulty breathing Pending Studies at Discharge: No Stand-Alone Forms: [facility], Smoking Cessation Medications and DC Order Prescriptions: New prednisone 10 mg tablet 10 mg PO DIRECTED Qty: 42 0RF Rx Instructions: Please take 60mg (6 tabs) once daily for 2 days starting on 12/03, then take 50mg daily for 2 days, then 40mg daily for 2 days, then 30,g daily for 2 days, then 20mg daily for 2 days, then 10mg daily for 2 days. Continued (DME) Power Wheelchair Device See Rx Instructions .Route Qty: 1 0RF Rx Instructions: As directed metformin 500 mg tablet 500 mg PO BID levothyroxine 25 mcg tablet 25 mcg PO DAILYBB omeprazole 20 mg capsule,delayed release(DR/EC) 20 mg PO PM benazepril 40 mg tablet 40 mg PO QAM aspirin 81 mg Tablet,Delayed Release (Dr/Ec) 81 mg PO QAM Qty: 30 0RF atorvastatin 40 mg tablet 40 mg PO HS fluticasone propion-salmeterol 250-50 mcg/dose blister with device 1 inh INHALATION BID Rx Instructions: Unable to verify this medication with patient/caregiver at this date/time. Was able to verify that it was picked up by Pharmacy. Original Directions: 1 inhalation twice daily docusate sodium 100 mg capsule 100 mg PO PM PRN (Reason: Constipation) cholecalciferol (vitamin D3) 125 mcg (5,000 unit) tablet 5,000 unit PO QAM Women's 50 Plus Advanced 400-20 mcg Tablet 1 tab PO QAM turmeric 400 mg Capsule 0 mg PO QAM Rx Instructions: Unable to verify strength of OTC medication with patient/caregiver at this date/time. albuterol sulfate 2.5 mg /3 mL (0.083 %) solution for nebulization 2.5 mg continuous nebulization DIRECTED PRN (Reason: Shortness Of Breath Or Wheezing) diclofenac potassium 50 mg tablet 50 mg PO TID PRN (Reason: Pain) vitamin B complex Tablet 1 tab PO DAILY ipratropium bromide 21 mcg (0.03 %) spray,non-aerosol 2 spray INTRANASAL BID nystatin [Klayesta] 100,000 unit/gram powder 1 applic TOPICAL BID Rx Instructions: under breast Centrum Adult 50 Plus 80 mcg Tablet,Chewable 1 tab PO DAILY bumetanide 1 mg tablet 0.5 mg PO DIRECTED PRN (Reason: .edema) Discharge Orders: Discharge Order (Routine); Ordered 12/03/23 Ordered By: Harpal Hines Admission Data Admit Date/Time: 12/02/23 10:45 Attending Provider: Armando Brush Admit Provider: Veronica Butterfield Primary Care Provider: Rhona Canales Other Providers: Veronica Butterfield; [facility] Other Interventions: Discharge Summary Assessment (RN) Last Done: 12/03/23 17:05 Supervising Physician Co-Signing Physician Notes I personally examined the patient and verified all ray points of history and exam, discussed case, and agree with decision making with A John MS4 and Dr Hines Feels better and feels up to going home. She had not yet walked whenever I saw her, was present. Discussed with nursing and she was able to get up and around to a degree that she felt she would be safe at home and without any significant dyspnea or hypoxia. Vitals noted, in general she is awake and alert pleasant no distress. HEENT normocephalic atraumatic mucous membranes moist. Breathing unlabored no accessory muscle use good effort. Skin shows no rashes no pallor or icterus. Neuro without focal deficits. Shortness of breathat face value an asthma exacerbation, but a very complicated situation given her underlying what appears to be a degree of COPD/obstructive lung disease, but also restrictive lung disease likely from OHS and neuromuscular weakness. Was not hypercapnic. Improving nicely. Safe/stable for home. Steroid taper, close pulmonary follow-up.
--- NOTE | 2023-12-03 17:54 | Billing Data ---
Date of Service December 03, 2023 Coding Level of Care Code 92217 IN/OBS DISCH 30 MIN/LESS
--- NOTE | 2023-12-03 17:55 | Billing Data ---
Date of Service December 03, 2023 Coding Level of Care Code 46240 IN/OBS DISCH 30 MIN/LESS
== END 2023-12-03 18:57 | disposition home or self-care (01) | DRG 202 ==
LOC: ED 18:29 → INTOOBSV 21:04 → 3E 21:04 → SUATTDRO 21:04 → 3E 22:49 → 2N 12-02 09:08

== ENCOUNTER 2024-10-10 09:25 | Observation (INO) ==
--- OUTSIDE RECORDS SUMMARY | 2024-10-10 09:31 | External Medical Summary | Continuity of Care Document ---
Author Name Unknown Organization [address] [id number] Care Team Providers Care Business Objects Consultant Name Role Phone Rhona Canales Primary Care Physician [phone] Encounter [facility] [id number] Date(s): 09/28/24 - 09/28/[address] [address] [phone] Encounter Diagnosis Type II diabetes mellitus(Discharge Diagnosis) - 09/28/24 MS (multiple sclerosis)(Discharge Diagnosis) - 09/28/24 HTN (hypertension)(Discharge Diagnosis) - 09/28/24 Adult hypothyroidism(Discharge Diagnosis) - 09/28/24 Allergic asthma(Discharge Diagnosis) - 09/28/24 Allergic rhinitis(Discharge Diagnosis) - 09/28/24 Screening due(Discharge Diagnosis) - 09/28/24 Type 2 diabetes mellitus without complications(Final) - Hypothyroidism, unspecified(Final) - Discharge Disposition: Home or Self Care Attending Physician: RAY Canales Tara Referring Physician: RAY Canales Tara Encounter Type: Clinic Allergies, Adverse Reactions, Alerts Substance Criticality Severity Reaction Reaction Severity Status codeine Active Singulair 1 Sleep walking Acti ve 1Husband found pt. out in the driveway with no idea how she got there in the middle of the night. Assessment and Plan Extracted from: Title:follow up Author:RAY Canales Tara Date: 1. Type II diabetes mellitu s Acute/Chronic: chronic Goal:Resolution/ control Status:stable/controlled Data: records/pt report Plan: Will repeat her hgba1c. She states he fasting bsgs have been good. 2. MS (multiple sclerosis) Acute/Chronic: chronic Goal:Resolution/ control Status:stable/controlled Data: records/pt report Plan: She has not been to neuro. She does not feel she needs to go back at this time. She is not having issues or flare of MS presently or recently. No recent falls. 3. HTN (hypertension) Acute/Chronic: chronic Goal:Resolution/ control Status:stable/controlled Data: records/pt report Plan: BP is well controlled. Contd on present regimen. 4. Adult hypothyroidism Acute/Chronic: chronic Goal:Resolution/ control Status:stable/controlled Data: records/pt report Plan: Will check her tsh. No 5. Allergic asthma 6. Allergic rhinitis Acute/Chronic: chronic Goal:Resolution/ control Status:stable/controlled Data: records/pt report Plan: Her breathing and allergies seem to be well controlled. She is taking allergy med and nasal steroid daily. She also is using inhalers. Lungs sound clear on exam today. 7. Screening due Acute/Chronic: chronic Goal:Resolution/ control Status:stable/controlled Data: records/pt report Plan: She has declined the dexa scan. She reports she has mammo scheduled. Follow up in 3 mo time spent reviewing chart, face to face visit, orders and documentation: 43 min Immunizations Given and Recorded Vaccine Date Status Refusal Reason SARS-CoV-2 (COVID-19) mRNA-vacc - [id number] 04/06/24 Recorded influenza virus vaccine, inactivated 03/31/24 Give n influenza virus vaccine, inactivated 03/21/23 Chicho rded [...] influenza virus vaccine, inactivated 04/04/14 Give n zoster vaccine, inactivated 04/15/23 Recorded zoster vaccine, inactivated 02/03/23 Recorded zoster vaccine, inactivated 07/17/19 Recorded zoster vaccine, inactivated 05/14/19 Recorded SARS-CoV-2 mRNA ([employer] 12+) bivalent 04/15/23 Rec orded SARS-CoV-2 mRNA (Pfizer 12+) bivalent 04/17/22 Rec orded RSV vaccine preF3, recombinant 03/28/23 Recorded pneumococcal 20-valent conjugate vaccine 05/28/22 Given SARS-CoV-2 mRNA (yprofvmwusv-gpsh-rxr) 12/14/21 Re corded SARS-CoV-2 (COVID-19) mRNA BNT-162b2 vax 1 04/18/21 Given SARS-CoV-2 (COVID-19) mRNA BNT-162b2 vax 2 09/30/20 Recorded SARS-CoV-2 (COVID-19) mRNA BNT-162b2 vax 3 09/09/20 Recorded pneumococcal 13-valent vaccine 04/20/19 Given Zoster Vaccine Unspecified 4 03/23/13 Recorded Zoster Vaccine Unspecified 03/23/13 Recorded tetanus/diphtheria/pertuss, acel (Tdap) 12/04/10 R ecorded influenza virus vaccine, H1N1 5 06/03/09 Recorded 1Early/Late Reason: Early/Late Reason: Other : Order placed prior to appt. 2Result Comment: 2021-08-20: Historical information-source unspecified 3Result Comment: 2021-08-20: Historical information-source unspecified 4Result Comment: Route: Unknown 5Result Comment: 2021-08-20: Historical information-source unspecified Medications Albuterol (Eqv-ProAir HFA) 90 mcg/inh inhalation aerosol Start: 09/20/24 5:08:00 PM EDT, 2 puff, inhaled, q4h, Disp# 18 g, Refills: 3, Pharmacy: [facility] Start Date: 09/20/24 Stop Date: 09/15/25 Status: Ordered Quantity: 18.0 Unit: g Repeat number: 4 aspirin Start: 11/28/22 1:37:00 PM EDT, 81 mg =, PO, Daily Start Date: 11/28/22 Status: Ordered Repeat number: 1 atorvastatin 40 mg oral tablet Start: 09/20/24 5:08:00 PM EDT, 1 tab, PO, qhs, Disp# 90 tab, Refills: 3, Pharmacy: [facility] Start Date: 09/20/24 Status: Ordered Quantity: 90.0 Unit: tab Repeat number: 4 benazepril 40 mg oral tablet Start: 09/20/24 5:08:00 PM EDT, See Instructions, Disp# 90 tab, Refills: 3, TAKE 1 TABLET BY MOUTH ONCE DAILY, [facility] Start Date: 09/20/24 Status: Ordered Quantity: 90.0 Unit: tab Repeat number: 4 budesonide-formoterol 160 mcg-4.5 mcg/inh inhalation aerosol Start: 06/21/24 8:41:00 AM EST, 2 puff, inhaled, bid, Disp# 10.2 each, Refills: 10, Pharmacy: [facility] Start Date: 06/21/24 Status: Ordered Quantity: 10.2 Unit: each Repeat number: 1 bumetanide 0.5 mg oral tablet Start: 03/25/24 8:39:00 AM EDT, 1 tab, PO, Daily, Disp# 45 tab, Refills: 11, WITH 2ND DOSE IN EVENING DIRECTED FOR FLUID OVERLOAD., Pharmacy: [facility] Start Date: 03/25/24 Status: Ordered Quantity: 45.0 Unit: tab Repeat number: 1 diclofenac potassium 50 mg oral tablet Start: 09/20/24 5:08:00 PM EDT, 1 tab, PO, tid, Disp# 270 tab, Refills: 3, PRN: NEEDED FOR PAIN, Pharmacy: [facility] Start Date: 09/20/24 Status: Ordered Quantity: 270.0 Unit: tab Repeat number: 4 diclofenac sodium 1% topical cream Start: 07/23/23 11:28:00 AM EST Start Date: 07/23/23 Status: Ordered Repeat number: 1 fluticasone 50 mcg/inh nasal spray Start: 08/19/23 2:12:00 PM EST, 2 spray, each nostril, Daily, Disp# 16 g, Refills: 11, Pharmacy: [facility]/pharmacy #[id number] Start Date: 08/19/23 Status: Ordered Quantity: 16.0 Unit: g Repeat number: 12 ipratropium 21 mcg/inh (0.03%) nasal spray Start: 09/22/24 8:33:00 PM EDT, 2 spray, intranasal, bid, Disp# 30 unknown unit, Refills: 11, Pharmacy: [id number] Start Date: 09/22/24 Status: Ordered Quantity: 30.0 Unit: unknown unit Repeat number: 1 levothyroxine 25 mcg (0.025 mg) oral tablet Start: 09/20/24 5:08:00 PM EDT, 1 tab, PO, Daily, Disp# 90 tab, Refills: 4, Pharmacy: [facility] Start Date: 09/20/24 Status: Ordered Quantity: 90.0 Unit: tab Repeat number: 5 LORazepam 1 mg oral tablet Start: 01/30/24 5:36:00 PM EDT, 0.5 tab, PO, Daily, Disp# 15 tab, Refills: 0, PRN: as needed for anxiety, Pharmacy: [facility]/pharmacy #[id number] Start Date: 01/30/24 Status: Ordered Quantity: 15.0 Unit: tab Repeat number: 1 magnesium oxide 400 mg (241.3 mg elemental magnesium) oral tablet Start: 07/23/23 11:29:00 AM EST, 1 tab, PO, Daily Start Date: 07/23/23 Status: Ordered Repeat number: 1 metFORMIN 1000 mg oral tablet Start: 09/20/24 5:08:00 PM EDT, 1 tab, PO, bid, Disp# 180 tab, Refills: 3, Pharmacy: [facility] Start Date: 09/20/24 Status: Ordered Quantity: 180.0 Unit: tab Repeat number: 4 multivitamin Start: 10/29/23 10:54:00 AM EDT, 1 tab, PO, Daily Start Date: 10/29/23 Status: Ordered Repeat number: 1 nystatin 100,000 units/g topical powder Start: 09/20/24 5:08:00 PM EDT, 1 appl, topical, tid, Disp# 60 g, Refills: 1, Pharmacy: [facility] Start Date: 09/20/24 Status: Ordered Quantity: 60.0 Unit: g Repeat number: 2 nystatin-triamcinolone 100,000 units/g-0.1% topical cream Start: 10/29/23 11:16:00 AM EDT, 1 appl, topical, bid, Disp# 60 g, Refills: 1, to area to affected area as directed, Pharmacy: [facility]/pharmacy #[id number] Start Date: 10/29/23 Stop Date: 11/26/23 Status: Ordered Quantity: 60.0 Unit: g Repeat number: 2 omeprazole 20 mg oral delayed release capsule Start: 09/20/24 5:08:00 PM EDT, 1 cap, PO, Daily, Disp# 90 cap, Refills: 3, Pharmacy: [facility] Start Date: 09/20/24 Status: Ordered Quantity: 90.0 Unit: cap Repeat number: 4 ONE TOUCH ULTRA BLUE TEST STRP Start: 07/21/23 4:30:00 PM EST, ONE TOUCH ULTRA BLUE TEST STRP, See Instructions, Disp# 50 strip, Refills: 5, CHECK GLUCOSE LEVEL FASTING IN MORNING AND BEFORE EVENING MEAL, Pharmacy [id number] Start Date: 07/21/23 Status: Ordered Quantity: 50.0 Unit: Repeat number: 1 ONE TOUCH ULTRA BLUE TEST STRP Start: 03/03/23 12:04:00 PM EDT, ONE TOUCH ULTRA BLUE TEST STRP, See Instructions, Disp# 50 strip, Refills: 5, CHECK GLUCOSE LEVEL FASTING IN MORNING AND BEFORE EVENING MEAL, Pharmacy [id number] Start Date: 03/03/23 Status: Ordered Quantity: 50.0 Unit: Repeat number: 1 One Touch Ultra Glucose Monitor Kit Start: 08/21/21 5:13:00 PM EST, See Instructions, Disp# 1 kit, Check glucose levels twice a day, [id number] Start Date: 08/21/21 Status: Ordered Quantity: 1.0 Unit: kit Repeat number: 1 One Touch Ultra Test Strips 100 ct Start: 09/22/24 12:54:00 PM EDT, See Instructions, Disp# 100 each, Refills: 3, Check blood sugar BID., Pharmacy: [facility] Start Date: 09/22/24 Status: Ordered Quantity: 100.0 Unit: each Repeat number: 4 One Touch Ultrasoft (28G) Lancets Start: 08/22/21 9:52:00 AM EST, See Instructions, Disp# 100 lancet, Refills: 3, Use to test BSG BID, Note to Pharmacy: Dx: E11.9, Pharmacy: [facility]/pharmacy #[id number] Start Date: 08/22/21 Status: Ordered Quantity: 100.0 Unit: Repeat number: 4 Poly Iron (as elemental iron) 150 mg oral capsule Start: 02/10/24 6:13:00 PM EDT, 1 cap, PO, Daily, Disp# 90 cap, Refills: 4, Pharmacy: [facility]/pharmacy #[id number] Start Date: 02/10/24 Stop Date: 05/05/25 Status: Ordered Quantity: 90.0 Unit: cap Repeat number: 5 Potassium Chloride (Eqv-K-Tab) 10 mEq oral tablet, extended release Start: 07/23/23 11:29:00 AM EST Start Date: 07/23/23 Status: Ordered Repeat number: 1 Saline Mist 0.65% nasal spray Start: 07/23/23 11:31:00 AM EST Start Date: 07/23/23 Status: Ordered Repeat number: 1 Super B Complex oral tablet Start: 10/29/23 10:54:00 AM EDT, 1 tab, PO, Daily Start Date: 10/29/23 Status: Ordered Repeat number: 1 turmeric Start: 10/29/23 10:54:00 AM EDT Start Date: 10/29/23 Status: Ordered Repeat number: 1 Vitamin C 1000 mg oral tablet Start: 05/26/24 11:08:00 AM EST, 1 tab, PO, Daily Start Date: 05/26/24 Status: Ordered Repeat number: 1 Vitamin D3 125 mcg (5000 intl units) oral tablet Start: 04/13/24 1:01:00 PM EDT, 1 tab, PO, Daily, Disp# 90 tab, Refills: 3, Pharmacy: [id number] Start Date: 04/13/24 Status: Ordered Quantity: 90.0 Unit: tab Repeat number: 1 ZyrTEC 10 mg oral tablet Start: 11/21/23 9:28:00 AM EDT, 1 tab, PO, Daily, Disp# 90 tab, Refills: 3, PRN: as needed for allergy symptoms, Pharmacy: [facility]/pharmacy #[id number] Start Date: 11/21/23 Status: Ordered Quantity: 90.0 Unit: tab Repeat number: 4 Mental Status 09/28/24 Barriers to Learning one year None evide nt Mandatory Health Literacy Documentation Yes Health Literacy Communication Barriers N ever Primary Language [place] Problem List Condition Confirmation Course Effective Dates [...] Effective Dates Health Status Clinical Service Informant Type II diabetes mellitus Discharge Diagnosis 09/28/24 Non-Specified Adult hypothyroidism Discharge Diagnosis 09/28/24 Non-Specified Allergic rhinitis Discharge Diagnosis 09/28/24 Non-Specified MS (multiple sclerosis) Discharge Diagnosis 09/28/24 Non-Specified HTN (hypertension) Discharge Diagnosis 09/28/24 Non-Specified Allergic asthma Discharge Diagnosis 09/28/24 Non-Specified Screening due Discharge Diagnosis 09/28/24 Non-Specified Procedures Procedure Date Related Diagnosis Body Site [...] 6the spirometry flow volume loop are normal Results Laboratory List Name Date Hemoglobin A1C (HEMOGLOBIN, A1C) 09/28/24 Thyroid Stimulating Hormone (TSH) 5 Most recent to oldest [Reference Range]: 1 Estimated Average Glucose 163 mg/dL 1 (09/28/24 10:50 AM) HbA1c [4.0-6.0 %] 7.3 % *HI* (09/28/24 10:50 AM) TSH [0.47-4.68 uIU/mL] 3.78 uIU/mL 2 (09/28/24 10:50 AM) 1Result Comment: Testing Performed By: [facility] [address], [address], [place] [address] 2Result Comment: Testing Performed By: [facility] [address], [address], [place] [address] Vital Signs Most recent to oldest [Reference Range]: 1 Temperature [36.5-37.9 DegC] 36.5 DegC (09/28/24 10:28 AM) Heart Rate 80 bpm (09/28/24 10:28 AM) Respiratory Rate 17 br/min (09/28/24 10:28 AM) Blood Pressure 130/74mmHg (09/28/24 10:28 AM) Cuff Pulse Pressure 56 mmHg (09/28/24 10:28 AM) Social History Social History Type Response Smoking Status Never smoked cigaret grabiel Sex Female Sex Representation Female (finding) [facility] Outpt Note * RAY Canales Tara: PERFORM Event Display: [facility] Outpt Note Authored Date: [id number] Chief Complaint 4 Month F/U.HUBERT,DM,HLD. History of Present Illness BSGs this am 118. This is what they generally are running around. Breathing has been good. She has not been having issues with breathing or allergies. On daily allergy med and nasal spray. Was not able to be placed on dupixent due to cost. Has not been back to neuro for her MS. She is getting up and walk short distances at home. Otherwise she is in her wheelchair. No falls. Sore on buttocks that she has home nursing coming in an checking. Review of Systems Constitutional: No fever, chills, sweats EENT: No vision change, eye pain, rhinorrhea, sinus pain, epistaxis, dysphagia, change in hearing,tinnitus, vertigo, oral ulcers or lesions. Pulmonary: No shortness of breath, dyspnea with exertion, cough, hemoptysis, wheezing, chest pain. Cardiovascular: No chest pain, palpitations, syncope, edema, cyanosis, claudication, orthopnea. Musculoskeletal: No joint swelling or pain, muscle pain, back pain Neurologic: No headache, lightheadedness, dizziness Psychiatric: No depression, anxiety Endocrine: No weight change, heat or cold intolerance, tremor, insomnia, polyuria, polydipsia, polyphagia, abnormal hair growth, change in nails Physical Exam Vitals & Measurements T: 36.5 °C HR: 80 (Monitored) RR: 17 BP: 130/74 SpO2: 96% PHQ2 Data (Data Documented on:09/28/2024 10:28) Emotional health assessment NEGATIVE head - normocephalic eyes - PERRLA , conjunctiva clear, sclera white, anicteric, neck- no lymphadenopathy, masses, or thyromegaly, +carotid pulses, no bruits, trachea midline Pulmonary - chest expansion symmetric, CTA (clear to auscultation), eupnea, no adventitious sounds (rales, crackles, wheezes) CV (cardiovascular) - RRR no m/r/g (systolic ejection murmur, rubs, gallops), good peripheral perfusion extremities Trace pedal edema. skin -good turgor w/o lesions, redness, cyanosis, edema nails - no clubbing or deformities w good cap refill Neuro: Alert, Oriented, Psy: no homicidal or suicidal ideations. Assessment/Plan 1. Type II diabetes mellitus Acute/Chronic: chronic Goal:Resolution/ control Status:stable/controlled Data: records/pt report Plan: Will repeat her hgba1c. She states he fasting bsgs have been good. 2. MS (multiple sclerosis) Acute/Chronic: chronic Goal:Resolution/ control Status:stable/controlled Data: records/pt report Plan: She has not been to neuro. She does not feel she needs to go back at this time. She is not having issues or flare of MS presently or recently. No recent falls. 3. HTN (hypertension) Acute/Chronic: chronic Goal:Resolution/ control Status:stable/controlled Data: records/pt report Plan: BP is well controlled. Contd on present regimen. 4. Adult hypothyroidism Acute/Chronic: chronic Goal:Resolution/ control Status:stable/controlled Data: records/pt report Plan: Will check her tsh. No 5. Allergic asthma 6. Allergic rhinitis Acute/Chronic: chronic Goal:Resolution/ control Status:stable/controlled Data: records/pt report Plan: Her breathing and allergies seem to be well controlled. She is taking allergy med and nasal steroid daily. She also is using inhalers. Lungs sound clear on exam today. 7. Screening due Acute/Chronic: chronic Goal:Resolution/ control Status:stable/controlled Data: records/pt report Plan: She has declined the dexa scan. She reports she has mammo scheduled. 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 Diabetes mellitus with hyperglycemia Need for pneumococcal vaccine Need for vaccination for Strep pneumoniae Rash Skin candidiasis Tinea Procedure/Surgical History MRA head| Service Date: 08/15/2021 MR ANGIOGRAPH HEAD W/O&W/DYE| Service Date: 08/15/2021 Chest X-ray| Service Date: 07/10/2021•Pulmonary function test•None Medications albuterol(Albuterol (Eqv-ProAir HFA) 90 mcg/inh inhalation aerosol), 2 puff, inhaled, q4h, 3 refills ascorbic acid(Vitamin C 1000 mg oral tablet), 1000 mg= 1 tab, PO, Daily aspirin, 81 mg, PO, Daily atorvastatin(atorvastatin 40 mg oral tablet), 40 mg= 1 tab, PO, qhs, 3 refills benazepril(benazepril 40 mg oral tablet), See Instructions, 3 refills budesonide-formoterol(budesonide-formoterol 160 mcg-4.5 mcg/inh inhalation aerosol), 2 puff, inhaled, bid bumetanide(bumetanide 0.5 mg oral tablet), 1 tab, PO, Daily cetirizine(ZyrTEC 10 mg oral tablet), 10 mg= 1 tab, PO, Daily, PRN, 3 refills cholecalciferol(Vitamin D3 125 mcg (5000 intl units) oral tablet), 1 tab, PO, Daily diabetes supplies(One Touch Ultra Glucose Monitor Kit), See Instructions diabetes supplies(One Touch Ultrasoft (28G) Lancets), See Instructions, 3 refills diabetes supplies(One Touch Ultra Test Strips 100 ct), See Instructions, 3 refills diclofenac(diclofenac potassium 50 mg oral tablet), 1 tab, PO, tid, PRN, 3 refills diclofenac topical(diclofenac sodium 1% topical cream) fluticasone nasal(fluticasone 50 mcg/inh nasal spray), 100 mcg= 2 spray, each nostril, Daily, 11 refills ipratropium nasal(ipratropium 21 mcg/inh (0.03%) nasal spray), 2 spray, intranasal, bid iron polysaccharide(Poly Iron (as elemental iron) 150 mg oral capsule), 150 mg= 1 cap, PO, Daily, 4refills levothyroxine(levothyroxine 25 mcg (0.025 mg) oral tablet), 1 tab, PO, Daily, 4 refills LORazepam(LORazepam 1 mg oral tablet), 0.5 mg= 0.5 tab, PO, Daily, PRN magnesium oxide(magnesium oxide 400 mg (241.3 mg elemental magnesium) oral tablet), 400 mg= 1 tab, PO, Daily metFORMIN(metFORMIN 1000 mg oral tablet), 1000 mg= 1 tab, PO, bid, 3 refills multivitamin, 1 tab, PO, Daily multivitamin(Super B Complex oral tablet), 1 tab, PO, Daily nystatin topical(nystatin 100,000 units/g topical powder), 1 appl, topical, tid, 1 refills nystatin-triamcinolone topical(nystatin-triamcinolone 100,000 units/g-0.1% topical cream), 1 appl, topical, bid, 1 refills omeprazole(omeprazole 20 mg oral delayed release capsule), 1 cap, PO, Daily, 3 refills potassium chloride(Potassium Chloride (Eqv-K-Tab) 10 mEq oral tablet, extended release) sodium chloride nasal(Saline Mist 0.65% nasal spray) turmeric unlisted medication(ONE TOUCH ULTRA BLUE TEST STRP), See Instructions unlisted medication(ONE TOUCH ULTRA BLUE TEST STRP), See Instructions Allergies Singulair Sleep walking codeine Social History Smoking Status Never smoked cigarettes Alcohol - No Risk Exercise - Does not exercise Tobacco - Denies Tobacco Use Use:Never smoker Intake (IView) Smoking History Cigarette smoker: Never smoked cigarettes Tobacco Product Use: Never used other tobacco products SHX E-Cigarette Use: Never Family History Cancer: Brother. Health Status Family Member(s) Immunizations Vaccine Date Status SARS-CoV-2 (COVID-19) mRNA-vacc - [id number] 04/06/2024 Recorded influenza virus vaccine, inactivated 03/31/2024 Given zoster vaccine, inactivated 04/15/2023 Recorded SARS-CoV-2 mRNA (Pfizer 12+) bivalent 04/15/2023 Recorded RSV vaccine preF3, recombinant 03/28/2023 Recorded influenza virus vaccine, inactivated 03/21/2023 Recorded zoster vaccine, inactivated 02/03/2023 Recorded pneumococcal 20-valent conjugate vaccine 05/28/2022 Given SARS-CoV-2 mRNA (Pfizer 12+) bivalent 04/17/2022 Recorded influenza virus vaccine, inactivated 03/21/2022 Given SARS-CoV-2 mRNA ([id number]) 12/14/2021 Recorded SARS-CoV-2 (COVID-19) mRNA BNT-162b2 vax 04/18/2021 Given [...] Given influenza virus vaccine, inactivated 04/04/2014 Given Zoster Vaccine Unspecified 03/23/2013 Recorded Comments : Route: Unknown Zoster Vaccine Unspecified 03/23/2013 Recorded tetanus/diphtheria/pertuss, acel (Tdap) 12/04/2010 Recorded influenza virus vaccine, H1N1 06/03/2009 Recorded Comments : 2021-08-20: Historical information-source unspecified Recommendations Health Maintenance Pending (in the next year) OverDue Adult Social Determinants of Health Screening due 07/25/23 and every 366 day Kidney Health Evaluation due 09/17/23 and every 366 day Body Mass Index due 09/26/23 and every 366 day Due Adult Tdap/Td Vaccine due 09/28/24 Unknown Frequency Breast Cancer Screening due 09/28/24 Unknown Frequency Hepatitis C Screening due 09/28/24 One-time only Medicare Annual Wellness Visit due 09/28/24 and every 1 year Osteoporosis Screening due 09/28/24 One-time only Due In Future Adult Influenza Vaccine not due until 01/11/25 and every 1 year Colorectal Cancer Screening not due until 03/26/25 and every 3 year Diabetes Management A1c not due until 05/27/25 and every 366 day Satisfied (in the past 1 year) Satisfied Adult Influenza Vaccine on 03/31/24. Satisfied by TOÑITO Mccormick Kirsten Diabetes Management A1c on 05/26/24. Satisfied by Contributor_system, [id number] Kidney Health Evaluation on 01/29/24. Satisfied by Contributor_system, [id number] Lipid Screening on 01/29/24. Satisfied by Contributor_system, [id number] Seasonal COVID 19 Vaccine on 04/06/24. Satisfied by THEE Joiner, Dianna Refused Diabetic Eye Exam on 09/28/24. Recorded by RAY Canales Tara Reason: Patient Refuses Osteoporosis Screening on 09/28/24. Recorded by RAY Canales Tara Reason: Patient Refuses Electronic Signature on File Electronically Reviewed/Signed by: RAY Castellanos Author Signature Dt/Tm:09/28/2024 12:23 PM Department of Family Medicine TB Patient Care team information Care Team Personnel Name: RAY Canales Tara Position: Nurse Pract - Family Med Member Role: Primary Care Provider Address: [address] [place], [place] [address]com: [phone] Care Team Related Persons Name: FRED HERNANDEZ Insurance Providers Guarantor name: GARRICK HERNANDEZ Health Plan Information #: 1 Payer: [employer] Member Number: [id number] Policy Number: NA Group Number: [id number] Health Plan Information #: 2 Payer: [employer] Member Number: [id number] Policy Number: NA Group Number: [id number]"
--- OUTSIDE RECORDS SUMMARY | 2024-10-10 09:31 | External Medical Summary | Continuity of Care Document ---
Author Name Unknown Organization [address] Address [address] [place] [address] [phone] Care Team Providers Care Bond Trader Name Role Phone Rhona Canales Primary Care Physician [phone] Encounter [facility] [id number] Date(s): 05/31/24 - 05/31/[address] [address] [phone] Encounter Diagnosis Cough(Discharge Diagnosis) - 05/31/24 Pressure sore(Discharge Diagnosis) - 05/31/24 Discharge Disposition: Home or Self Care Attending Physician: RAY Zuniga Danielle B Allergies, Adverse Reactions, Alerts Substance Criticality Severity Reaction Reaction Severity Status codeine Active Singulair 1 Sleep walking Acti ve 1Husband found pt. out in the driveway with no idea how she got there in the middle of the night. Assessment and Plan Extracted from: Title:Acute Visit Note Author:RAY Zuniga Dani elle B Date:05/31/24 1. Cough CXR today. Will start patient on doxycycline 100 mg twice daily x 10 days to treat for atypical pneumonia. Will also add Augmentin or fluoroquinolone if chest x-ray positive. Will also start patient on burst of prednisone 40 mg daily x 5 days. Patient aware that wrong prescription was sent in and I called to reiterate instructions of prednisone 20 mg 2 tablets daily x 5 days instead of 1 tablet daily. Also refilled Symbicort inhaler and recommended that patient start taking 2 puffs twice daily for about the next 10 days and as needed up to total of 12 puffs/day. Allergies and home medications reviewed. Discussed desired effects, potential side effects, how to administer medications. -Follow-up or Friday of this week for recheck. 2. Pressure sore Will refer patient to home health for wound care of stage II pressure ulcers on bilateral buttocks. Patient prefers [facility] home health as that is the organization she has used previously. -Follow-up if symptoms worsen or fail to improve. - Patient verbalizes understanding regarding plan of care and all questions answered. Immunizations Given and Recorded Vaccine Date Status Refusal Reason SARS-CoV-2 (COVID-19) mRNA-vacc - [id number] 04/06/24 Recorded influenza virus vaccine, inactivated 03/31/24 [...] mRNA (Pfizer 12+) bivalent 04/15/23 Rec orded SARS-CoV-2 mRNA (Pfizer 12+) bivalent 04/17/22 Rec orded RSV vaccine preF3, recombinant 03/28/23 Recorded pneumococcal 20-valent conjugate vaccine 05/28/22 Given SARS-CoV-2 mRNA ([id number]) 12/14/21 Re corded SARS-CoV-2 (COVID-19) mRNA BNT-162b2 [...] (Eqv-ProAir HFA) 90 mcg/inh inhalation aerosol Start: 05/26/24 1:04:00 PM EST, 2 puff, inhaled, q4h, Disp# 8.5 each, Refills: 6, [id number] Start Date: 05/26/24 Status: Ordered aspirin Start: 11/28/22 1:37:00 PM EDT, 81 mg =, PO, Daily Start Date: 11/28/22 Status: Ordered atorvastatin 40 mg oral tablet Start: 03/08/24 12:43:00 PM EDT, 1 tab, PO, qhs, Disp# 90 tab, Refills: 4, Pharmacy: [id number] Start Date: 03/08/24 Status: Ordered benazepril 40 mg oral tablet Start: 03/08/24 12:43:00 PM EDT, See Instructions, Disp# 90 tab, Refills: 4, TAKE 1 TABLET BY MOUTH ONCE DAILY, Pharmacy: [id number] Start Date: 03/08/24 Status: Ordered budesonide-formoterol 160 mcg-4.5 mcg/inh inhalation aerosol Start: 05/31/24 10:32:00 AM EST, 2 inh, inhaled, bid, Disp# 10.2 g, 10 g, 0 Refill(s), INHALE 2 PUFFS TWICE A DAY, Pharmacy: [id number] Start Date: 05/31/24 Status: Ordered bumetanide 0.5 mg oral tablet Start: 03/25/24 8:39:00 AM EDT, 1 tab, PO, Daily, Disp# 45 tab, Refills: 11, WITH 2ND DOSE IN EVENING DIRECTED FOR FLUID OVERLOAD., Pharmacy: [id number] Start Date: 03/25/24 Status: Ordered diclofenac potassium 50 mg oral tablet Start: 04/09/24 7:46:00 AM EDT, 1 tab, PO, tid, Disp# 270 tab, Refills: 3, PRN: NEEDED FOR PAIN, Pharmacy: [id number] Start Date: 04/09/24 Status: Ordered diclofenac sodium 1% topical cream Start: 07/23/23 11:28:00 AM EST Start Date: 07/23/23 Status: Ordered doxycycline hyclate 100 mg oral capsule Start: 05/31/24 10:34:00 AM EST, 1 cap, PO, bid, Disp# 20 cap, Pharmacy: [id number] Start Date: 05/31/24 Stop Date: 06/10/24 Status: Ordered fluticasone 50 mcg/inh nasal spray Start: 08/19/23 2:12:00 PM EST, 2 spray, each nostril, Daily, Disp# 16 g, Refills: 11, Pharmacy: [id number] Start Date: 08/19/23 Status: Ordered ipratropium 21 mcg/inh (0.03%) nasal spray Start: 03/29/24 4:17:00 PM EDT, 2 spray, intranasal, bid, Disp# 30 unknown unit, Refills: 11, Pharmacy: [facility] [id number] Start Date: 03/29/24 Status: Ordered levothyroxine 25 mcg (0.025 mg) oral tablet Start: 03/08/24 12:43:00 PM EDT, 1 tab, PO, Daily, Disp# 90 tab, Refills: 4, Pharmacy: [id number] Start Date: 03/08/24 Status: Ordered LORazepam 1 mg oral tablet Start: 01/30/24 5:36:00 PM EDT, 0.5 tab, PO, Daily, Disp# 15 tab, Refills: 0, PRN: as needed for anxiety, Pharmacy: [id number] Start Date: 01/30/24 Status: Ordered magnesium oxide 400 mg (241.3 mg elemental magnesium) oral tablet Start: 07/23/23 11:29:00 AM EST, 1 tab, PO, Daily Start Date: 07/23/23 Status: Ordered metFORMIN 500 mg oral tablet Start: 05/30/24 9:09:00 PM EST, 2 tab, PO, bid, Disp# 360 tab, Refills: 3, Pharmacy: [id number] Start Date: 05/30/24 Stop Date: 05/25/25 Status: Ordered multivitamin Start: 10/29/23 10:54:00 AM EDT, 1 tab, PO, Daily Start Date: 10/29/23 Status: Ordered nystatin 100,000 units/g topical powder Start: 07/23/23 11:27:00 AM EST Start Date: 07/23/23 Status: Ordered nystatin-triamcinolone 100,000 units/g-0.1% topical cream Start: 10/29/23 11:16:00 AM EDT, 1 appl, topical, bid, Disp# 60 g, Refills: 1, to area to affected area as directed, Pharmacy: [id number] Start Date: 10/29/23 Stop Date: 11/26/23 Status: Ordered omeprazole 20 mg oral delayed release capsule Start: 05/04/24 11:07:00 AM EDT, 1 cap, PO, Daily, Disp# 90 cap, Refills: 3, Pharmacy: [id number] Start Date: 05/04/24 Status: Ordered ONE TOUCH ULTRA BLUE TEST STRP Start: 07/21/23 4:30:00 PM EST, ONE TOUCH ULTRA BLUE TEST STRP, See Instructions, Disp# 50 strip, Refills: 5, CHECK GLUCOSE LEVEL FASTING IN MORNING AND BEFORE EVENING MEAL, Pharmacy [id number] Start Date: 07/21/23 Status: Ordered ONE TOUCH ULTRA BLUE TEST STRP Start: 03/03/23 12:04:00 PM EDT, ONE TOUCH ULTRA BLUE TEST STRP, See Instructions, Disp# 50 strip, Refills: 5, CHECK GLUCOSE LEVEL FASTING IN MORNING AND BEFORE EVENING MEAL, Pharmacy [id number] Start Date: 03/03/23 Status: Ordered One Touch Ultra Glucose Monitor Kit Start: 08/21/21 5:13:00 PM EST, See Instructions, Disp# 1 kit, Check glucose levels twice a day, Pharmacy: [id number] Start Date: 08/21/21 Status: Ordered One Touch Ultrasoft (28G) Lancets Start: 08/22/21 9:52:00 AM EST, See Instructions, Disp# 100 lancet, Refills: 3, Use to test BSG BID, Note to Pharmacy: Dx: E11.9, Pharmacy: [id number] Start Date: 08/22/21 Status: Ordered Poly Iron (as elemental iron) 150 mg oral capsule Start: 02/10/24 6:13:00 PM EDT, 1 cap, PO, Daily, Disp# 90 cap, Refills: 4, [id number] Start Date: 02/10/24 Stop Date: 05/05/25 Status: Ordered Potassium Chloride (Eqv-K-Tab) 10 mEq oral tablet, extended release Start: 07/23/23 11:29:00 AM EST Start Date: 07/23/23 Status: Ordered predniSONE 20 mg oral tablet Start: 05/31/24 10:31:00 AM EST, 1 tab, PO, Daily, Disp# 10 tab, [id number] Start Date: 05/31/24 Status: Ordered Saline Mist 0.65% nasal spray Start: 07/23/23 11:31:00 AM EST Start Date: 07/23/23 Status: Ordered Senokot 8.6 mg oral tablet Start: 07/23/23 11:27:00 AM EST, 1 tab, PO, Daily Start Date: 07/23/23 Status: Ordered Super B Complex oral tablet Start: 10/29/23 10:54:00 AM EDT, 1 tab, PO, Daily Start Date: 10/29/23 Status: Ordered turmeric Start: 10/29/23 10:54:00 AM EDT Start Date: 10/29/23 Status: Ordered Vitamin C 1000 mg oral tablet Start: 05/26/24 11:08:00 AM EST, 1 tab, PO, Daily Start Date: 05/26/24 Status: Ordered Vitamin D3 125 mcg (5000 intl units) oral tablet Start: 04/13/24 1:01:00 PM EDT, 1 tab, PO, Daily, Disp# 90 tab, Refills: 3, Pharmacy: [id number] Start Date: 04/13/24 Status: Ordered ZyrTEC 10 mg oral tablet Start: 11/21/23 9:28:00 AM EDT, 1 tab, PO, Daily, Disp# 90 tab, Refills: 3, PRN: as needed for allergy symptoms, Pharmacy: [id number] Start Date: 11/21/23 Status: Ordered Mental Status 05/31/24 Barriers to Learning one year None evide nt Mandatory Health Literacy Documentation Yes Health Literacy Communication Barriers N ever Primary Language [place] Problem List Condition Confirmation Course Effective Dates [...] Dates Health Status Cl inical Service Informant Pressure sore Discharge Diagnosis 05/31/24 Non-Specified Cough Discharge Diagnosis 05/31/24 Non-Specified Procedures Procedure Date Related Diagnosis Body [...] oldest [Reference Range]: 1 Temperature [36.5-37.9 DegC] 36.4 DegC *LOW* (05/31/24 10:03 AM) Heart Rate 103 bpm (05/31/24 10:03 AM) Respiratory Rate 18 br/min (05/31/24 10:03 AM) Blood Pressure 116/74mmHg (05/31/24 10:03 AM) Social History Social History Type Response Smoking Status Never smoked cigaret grabiel Sex Female Sex Representation Female (finding) FCM Outpt Note * RAY Zuniga Danielle B: PERFORM Event Display: [facility]CM Outpt Note Authored Date: [id number] Chief Complaint c/o cold and sores on rear end. States sores on rear end began approx a week ago, has been applyingcream & bandaids. History of Present Illness Patient is a 69-year-old female here for cough and congestion x 2 weeks. Cough is nonproductive and nasal discharge is green/yellow thick mucus. Denies fever, chills, nausea, vomiting. Patient also wants to discuss sores on bilateral buttocks. States they have been present for about a week ago. Has been applying Butt paste and covering with Band-Aids. Patient currentlysits in wheelchair or recliner most of the day. Review of Systems Negative unless stated in HPI. Physical Exam Vitals & Measurements T: 36.4 °C HR: 103 (Monitored) RR: 18 BP: 116/74 SpO2: 94% PHQ2 Data (Data Documented on:05/31/2024 10:03) Emotional health assessment NEGATIVE CONSTITUTIONAL: Well-developed, well nourished. No acute distress. NEUROLOGICAL: Patient alert, orientated, memory intact. Gait steady. HEENT: Head is normocephalic. Eyes- symmetrical, no erythema or discharge. Ears- Canals without erythema or discharge. Tympanic membrane intact, no erythema or effusion present. Nares- are patent bilaterally, no discharge noted. Oral- Oropharynx is clear, no erythema or exudate. Oral mucosa pink and moist. Lips are pink and moist, no lesions. Neck- Supple, no lymphadenopathy. LUNGS: Respirations even and unlabored, chest expansion symmetrical. Wheezing and rales throughout lung collazo. HEART: Rate and rhythm regular. No cardiac murmur, click, or rub noted. ABDOMEN: Soft, nontender. Bowel sounds active in all four quadrants. MUSCULOSKELETAL/EXTREMITIES: Extremities are intact, no redness or edema noted of upper or lower extremity. INTEGUMENTARY: Skin dry, warm to touch. +2 pressure ulcer on bilateral buttocks just lateral to gluteal cleft with surrounding erythema. Some serosanguineous drainage but no purulent drainage. No warmth. PSYCHOSOCIAL: Calm and cooperative, interacts appropriately with staff. Assessment/Plan 1. Cough CXR today. Will start patient on doxycycline 100 mg twice daily x 10 days to treat for atypical pneumonia. Will also add Augmentin or fluoroquinolone if chest x-ray positive. Will also start patient on burst of prednisone 40 mg daily x 5 days. Patient aware that wrong prescription was sent in and I called to reiterate instructions of prednisone 20 mg 2 tablets daily x 5 days instead of 1 tablet daily. Also refilled Symbicort inhaler and recommended that patient start taking 2 puffs twice daily for about the next 10 days and as needed up to total of 12 puffs/day. Allergies and home medications reviewed. Discussed desired effects, potential side effects, how to administer medications. -Follow-up or Friday of this week for recheck. 2. Pressure sore Will refer patient to home health for wound care of stage II pressure ulcers on bilateral buttocks. Patient prefers [facility] home health as that is the organization she has used previously. -Follow-up if symptoms worsen or fail to improve. - Patient verbalizes understanding regarding plan of care and all questions answered. Problem List/Past Medical History Ongoing Adult hypothyroidism [...] mcg/inh inhalation aerosol), 2 puff, inhaled, q4h, 6 refills ascorbic acid(Vitamin C 1000 mg oral tablet), 1000 mg= 1 tab, PO, Daily aspirin, 81 mg, PO, Daily atorvastatin(atorvastatin 40 mg oral tablet), 40 mg= 1 tab, PO, qhs, 4 refills benazepril(benazepril 40 mg oral tablet), See Instructions, 4 refills budesonide-formoterol(budesonide-formoterol 160 mcg-4.5 mcg/inh inhalation aerosol), 2 inh, inhaled, bid bumetanide(bumetanide 0.5 mg oral tablet), [...] mg oral tablet), 1 tab, PO, tid, PRN diclofenac topical(diclofenac sodium 1% topical cream) doxycycline(doxycycline hyclate 100 mg oral capsule), 100 mg= 1 cap, PO, bid fluticasone nasal(fluticasone 50 mcg/inh nasal spray), 100 [...] PO, Daily metFORMIN(metFORMIN 500 mg oral tablet), 1000 mg= 2 tab, PO, bid, 3 refills multivitamin, 1 tab, PO, Daily multivitamin(Super B Complex oral tablet), 1 tab, PO, Daily nystatin topical(nystatin 100,000 units/g topical powder) nystatin-triamcinolone topical(nystatin-triamcinolone 100,000 units/g-0.1% topical cream), 1 appl, topical, bid, 1 refills omeprazole(omeprazole 20 mg oral delayed release capsule), 1 cap, PO, Daily potassium chloride(Potassium Chloride (Eqv-K-Tab) 10 mEq oral tablet, extended release) predniSONE(predniSONE 20 mg oral tablet), 20 mg= 1 tab, PO, Daily senna(Senokot 8.6 mg oral tablet), 8.6 mg= [...] Vaccine Date Status SARS-CoV-2 (COVID-19) mRNA-vacc - [id number] 04/06/2024 Recorded influenza virus vaccine, inactivated 03/31/2024 Given zoster vaccine, inactivated 04/15/2023 Recorded SARS-CoV-2 mRNA (Pfizer 12+) bivalent 04/15/2023 Recorded RSV vaccine preF3, recombinant 03/28/2023 Recorded influenza virus vaccine, inactivated 03/21/2023 Recorded zoster vaccine, inactivated 02/03/2023 Recorded pneumococcal 20-valent conjugate vaccine 05/28/2022 Given SARS-CoV-2 mRNA (Pfizer 12+) bivalent 04/17/2022 Recorded influenza virus vaccine, inactivated 03/21/2022 Given SARS-CoV-2 mRNA ([id number]) 12/14/2021 Recorded SARS-CoV-2 (COVID-19) mRNA BNT-162b2 vax [...] 04/04/2014 Given Zoster Vaccine Unspecified 03/23/2013 Recorded tetanus/diphtheria/pertuss, acel (Tdap) 12/04/2010 Recorded influenza virus vaccine, H1N1 06/03/2009 Recorded Comments : 2021-08-20: Historical information-source unspecified Recommendations Health Maintenance Pending (in the next year) OverDue Adult Social Determinants of Health Screening due 07/25/23 and every 366 day Body Mass Index due 09/26/23 and every 366 day Due Adult Tdap/Td Vaccine due 05/31/24 Unknown Frequency Breast Cancer Screening due 05/31/24 Unknown Frequency Diabetic Eye Exam due 05/31/24 Unknown Frequency Hepatitis C Screening due 05/31/24 One-time only Medicare Annual Wellness Visit due 05/31/24 and every 1 year Osteoporosis Screening due 05/31/24 One-time only Due In Future Adult Influenza Vaccine not due until 01/10/25 and every 1 year Colorectal Cancer Screening not due until 03/26/25 and every 3 year Diabetes Management A1c not due until 05/27/25 and every 366 day Satisfied (in the past 1 year) Satisfied Adult Influenza Vaccine on 03/31/24. Satisfied by TOÑITO Mccormick Kirsten Diabetes Management A1c on 05/26/24. Satisfied by [employer], [employer] Lipid Screening on 01/29/24. Satisfied by [employer], [id number] Electronic Signature on File Electronically Reviewed/Signed by: RAY Mix Author Signature Dt/Tm:05/31/2024 06:22 PM Family Medicine DBN Patient Care team information Care Team Personnel Name: RAY Canales Tara Position: Nurse Pract - Family Med Member Role: Primary Care Provider Address: [address] [place] [id number] [place] Care Team Related Persons Name: FRED HERNANDEZ"
--- NOTE | 2024-10-10 09:38 | Emergency Department Note ---
Impression & Plan Weakness, UTI (urinary tract infection), Hypomagnesemia, Candidal intertrigo ED Provider Note NAME: GARRICK HERNANDEZ AGE: 69 SEX: F : 1955 ARRIVES VIA: Ambulance INFORMANT: Patient, ED PROVIDER(S): Vernon Hale DO CHIEF COMPLAINT: Weakness HPI: The patient is a 69-year-old female who presented to the emergency department for an evaluation of generalized weakness. The patient states that she has been having generalized weakness which has been worsening over the last few days. Became much worse yesterday and the patient is having trouble ambulating and transferring today. The patient denies having any fever. She has been dealing with an area in her left groin which has been infected. She has been using powder in this area. She has been having some problems with incontinence. The patient denies having any chest pain but she did have some difficulty breathing on the way in. She was treated with a DuoNeb for her asthma and feels much better. ROS: See above HPI for pertinent positives & negatives. A total of 10 systems reviewed and were otherwise negative. PAST MEDICAL HISTORY: See Below PAST SURGICAL HISTORY: See Below FAMILY HISTORY: See Below SOCIAL HISTORY: See Below HOME MEDICATIONS: See Below ALLERGIES: See Below VITALS: See Below PHYSICAL EXAMINATION: GENERAL: The patient is awake and alert. She does not appear to be uncomfortable. EYES: The conjunctivae are clear. The pupils are round and reactive. EARS, NOSE, MOUTH AND THROAT: The nose is without any evidence of any deformity. NECK: The neck is nontender and supple. RESPIRATORY: Normal respiratory effort is noted there is no evidence of wheezing rhonchi or rales CARDIOVASCULAR: Regular rate and rhythm noted there no murmurs rubs or gallops normal S1 normal S2. GASTROINTESTINAL: The abdomen is soft. Abdomen is nontender. MUSCULOSKELETAL/EXTREMITIES: There is no evidence of gross deformity full range of motion is noted in the hips and shoulders. SKIN: Pedal edema was noted bilaterally. There was significant erythema noted in the left inguinal region. NEUROLOGIC: Patient is awake alert and oriented x3. Patient is unable to hold the left leg off the bed for greater than 5 seconds. She is able to hold the right leg off the bed for greater than 5 seconds. There is no drift in the upper extremity. Speech was clear. MEDICAL DECISION MAKING: The patient is a 69-year-old female who presented to the emergency department for an evaluation of generalized weakness. The patient's been having problems recently. She is not getting up as much as she used to. She is having trouble transferring. The patient has had some skin breakdown in her left inguinal region. This is likely consistent with a fungal infection. The patient was also found no signs of urinary tract infection. I discussed the patient's laboratory and radiographic studies with her. She was treated with an IV antibiotic. She was also treated with IV fluids and IV magnesium. Ultimately I did discuss her condition with the on-call [facility] Hospitalist. The patient would appear to be a better candidate for inpatient admission and management at this time. Triage Nursing notes reviewed. Prior medical records reviewed Vital Signs: reviewed and remarkable for no significant abnormalities Differential diagnosis: Infection, dehydration, metabolic abnormality, hypo/hyperglycemia, electrolyte disturbance, anemia, hypoxia, cardiac sources, intracerebral event, toxicologic, neurologic, as well as other pathologies. ER treatment provided: See below Diagnostics interpreted by me: ECG: EKG was obtained in the emergency department. My interpretation is normal sinus rhythm at 99 bpm. There is no ectopy. Low voltage was noted throughout. This was compared to a tracing from December 02, 2023. No changes were noted. Cardiac Monitoring: An order was placed for continuous cardiac monitoring. The monitor shows a rate of 85 bpm with sinus rhythm. Laboratory studies: As stated above and show below. Imaging studies: See below. Radiographic imaging was reviewed by myself Consultation(s): I discussed this case with Dr. Brush [facility] Past Med/Surg History Problem List (Updated 10/10/24 @ 13:21 by Vernon Hale DO) Candidal intertrigo (Acute) Weakness (Acute) Eosinophilic asthma Severe persistent allergic asthma Shortness of breath (Acute) Asthma exacerbation (Acute) Edema (Acute) Dyspnea on exertion History of UTI Thrush Yeast dermatitis (Acute) Generalized muscle weakness (Acute) Acute UTI (urinary tract infection) (Acute) Morbid obesity Ventral hernia Hypothyroidism Hypertension Hypomagnesemia (Acute) Diabetes Multiple sclerosis (Acute) UTI (urinary tract infection) (Acute) Abnormal finding on diagnostic imaging of left kidney Medical History Hypomagnesemia Hypothermia URI (upper respiratory infection) Hypomagnesemia Dyspnea Left-sided weakness DUNCAN (acute kidney injury) Brain TIA Acute respiratory failure with hypoxia Osteoarthritis of knees, bilateral Sinusitis, acute Morbid obesity with BMI of 50.0-59.9, adult Tachy-rowena syndrome GERD (gastroesophageal reflux disease) Hypothyroidism Pancreatitis Thrombocytopenia Peripheral edema Septic shock Hypomagnesemia Fungal dermatitis Asthma Hypertension Diabetes Influenza A Pneumonia Multiple sclerosis Surgical History H/O tubal ligation H/O sinus surgery History of arthroscopic knee surgery Hx of tonsillectomy H/O: hysterectomy No pertinent past surgical history Family History Other Family history non-contributory Social History Smoking Status: Never smoker Second Hand Exposure: No; Do You Dip or Chew Tobacco: No; Hx Alcohol Use: No Hx Substance Use: No Preferred Language: Egyptian Communication Ability: Effective Wood Technologist Required: No Beliefs That Will Affect Care: None marital status: Current Living Situation: Spouse Current Living Situation Comment: Spouse and granddaughter How many Children do You have: 2 Feels Safe at Home: Yes Diet: gluten free during the past year weight has: decreased > 10 lbs Assistive Devices: Nebulizer, Walker and Wheelchair Allergies Allergies Allergy/AdvReac Type Severity Reaction Status Date / Time montelukast [From [facility]] Allergy Mild Unknown Verified 02/04/24 15:33 Fish Containing Products Allergy Unknown Unknown Verified 02/04/24 15:33 shellfish derived Allergy Unknown Verified 02/04/24 15:33 codeine AdvReac Mild NAUSEATED Verified 02/04/24 15:33 Home Meds Home Medications Medication Instructions Recorded Confirmed benazepril 40 mg tablet 40 mg PO QAM 06/25/21 10/10/24 levothyroxine 25 mcg tablet 25 mcg PO DAILYBB 06/25/21 10/10/24 omeprazole 20 mg capsule,delayed 20 mg PO PM 06/25/21 10/10/24 release atorvastatin 40 mg tablet 40 mg PO HS 07/20/23 10/10/24 fluticasone 250 mcg-salmeterol 50 1 inh inhalation BID 07/20/23 10/10/24 mcg/dose blistr powdr for inhalation cholecalciferol (vitamin D3) 125 5,000 unit PO QAM 07/26/23 10/10/24 mcg (5,000 unit) tablet docusate sodium 100 mg capsule 100 mg PO PM PRN Constipation 07/26/23 10/10/24 turmeric 400 mg capsule 400 mg PO QAM 07/26/23 10/10/24 albuterol sulfate 2.5 mg/3 mL 2.5 mg continuous nebulization 09/25/23 10/10/24 (0.083 %) solution for nebulization DIRECTED PRN Shortness Of Breath Or Wheezing diclofenac potassium 50 mg tablet 50 mg PO TID PRN Pain 09/25/23 10/10/24 vitamin B complex 1 tab PO DAILY 09/25/23 10/10/24 bumetanide 1 mg tablet 0.5 mg PO DIRECTED PRN .edema 12/01/23 10/10/24 multivitamin with minerals-folic 1 tab PO DAILY 12/01/23 10/10/24 acid 80 mcg chewable tablet (Centrum Adult 50 Plus) nystatin 100,000 unit/gram topical 1 applic topical BID 12/01/23 10/10/24 powder (Klayesta) metformin 1,000 mg tablet 1,000 mg PO BID 10/10/24 10/10/24 Previous Rx's Medication Instructions Recorded aspirin 81 mg tablet,delayed 81 mg PO QAM #30 tabs 08/16/21 release Wheelchair (Powered) (Power #1 ea 11/05/23 Wheelchair) budesonide-formoterol HFA 160 2 puff inhalation BID #10.2 grams 12/28/23 mcg-4.5 mcg/actuation aerosol inhaler inhalational spacing device #1 ea 12/28/23 (Aerochamber MV spacer) Results & Data (ED) Vital Signs Vital Signs - 24 hr 10/10/24 09:18 10/10/24 09:36 10/10/24 10:05 Temperature 36.7 C Temperature Source Oral Pulse Rate 98 H 100 H Pulse Rate [Finger] Respiratory Rate 18 Respiratory Effort / Characteristics Non-Labored Spontaneous Respiratory Depth Normal Respiratory Pattern Regular Blood Pressure 133/95 Blood Pressure [Right Arm] Blood Pressure Mean 107 Blood Pressure Mean [Right Arm] Pulse Oximetry 96 96 Oxygen Delivery Method Room Air Room Air Sepsis Recent Fever Within 48 Hours No Sepsis New/Unexplained Change in Mental Status N/A Sepsis Action Taken by Nursing No Action Required 10/10/24 11:30 Temperature Temperature Source Pulse Rate Pulse Rate [Finger] 85 Respiratory Rate 18 Respiratory Effort / Characteristics Respiratory Depth Respiratory Pattern Blood Pressure Blood Pressure [Right Arm] 130/83 Blood Pressure Mean Blood Pressure Mean [Right Arm] 98 Pulse Oximetry 98 Oxygen Delivery Method Room Air Sepsis Recent Fever Within 48 Hours Sepsis New/Unexplained Change in Mental Status Sepsis Action Taken by Long-Term Medications Current Medication List: was personally reviewed by me Laboratory Data Attestation: I reviewed the patient's lab results. 10/10/24 09:36 10/10/24 09:36 Lab Results 10/10/24 10/10/24 10/10/24 Range/Units 09:36 10:11 11:57 WBC 7.30 (4.8-10.8) K/ul RBC 4.56 (4.20-5.40) M/uL Hgb 14.2 (12.0-16.0) g/dl Hct 42.8 (37.0-47.0) % MCV 93.9 (80.0-100.0) fL MCH 31.1 (25.0-34.0) pg MCHC 33.2 (32.0-36.0) g/dL RDW Std Deviation 59.7 H (36.4-46.3) fL RDW Coeff of Kaia 17.2 H (11.5-14.5) % Plt Count 157 (130-400) K/uL MPV 12.5 H (9.4-12.4) fL Immature Gran % (Auto) 0.4 % Neut % (Auto) 58.1 % Lymph % (Auto) 31.0 % [place] % (Auto) 7.3 % Eos % (Auto) 2.9 % Baso % (Auto) 0.3 % Neut # (Auto) 4.25 (1.40-6.50) K/uL Lymph # (Auto) 2.26 (1.20-3.40) K/uL [place] # (Auto) 0.53 (0.11-0.59) K/uL Eos # (Auto) 0.21 (0.00-0.50) K/uL Baso # (Auto) 0.02 (0.00-0.20) K/uL Immature Gran # (Auto) 0.03 (0.01-0.20) K/uL PT Cancelled INR Cancelled APTT Cancelled PTT Ratio Cancelled Sodium 145 (136-145) mmol/L Potassium 5.0 (3.5-5.1) mmol/L Chloride 109 H (98-107) mmol/L Carbon Dioxide 30 (21-32) mmol/L Anion Gap 6 (3-11) BUN 21 (6-23) mg/dl Creatinine 0.95 (0.6-1.2) mg/dl Est Cr Clr Drug Dosing 63.3 ml/min eGFR 64.45 BUN/Creatinine Ratio 22.1 H (10-20) Glucose 156 H (70-99(Fasting)) mg/dl Calcium 10.3 (8.6-10.3) mg/dl Magnesium 1.5 L (1.7-2.4) mg/dl Total Bilirubin 0.5 (0.2-1.0) mg/dl AST 57 H (13-39) U/L ALT 52 (7-52) U/L Alkaline Phosphatase 106 H (34-104) U/L Total Creatine Kinase 26 (26-192) U/L Troponin I High Sens < 2.3 (0-14) pg/ml Total Protein 7.9 (6.0-8.3) gm/dl Albumin 4.0 (3.4-5.0) gm/dl Globulin 3.9 (2.5-4.0) gm/dl Albumin/Globulin Ratio 1.0 (0.9-2) TSH 5.109 H (0.300-4.500) uIu/ml Free T4 0.71 (0.61-1.60) ng/dl Urine Color Yellow Urine Appearance Cloudy A (Clear) Urine pH 5.5 (4.5-7.5) Ur Specific [place] 1.021 (1.000-1.030) Urine Protein Trace H (Negative) Urine Glucose (UA) Negative (Negative) Urine Ketones 1+ H (Negative) Urine Blood Negative (Negative) Urine Nitrite Positive A (Negative) Urine Bilirubin Negative (Negative) Urine Urobilinogen Negative (Negative) Ur Leukocyte Esterase 2+ H (Negative) Urine WBC (Auto) >50 H (0-5) /hpf Urine RBC (Auto) 0-2 (0-2) /hpf U Hyaline Cast (Auto) 0-2 (0-2) /lpf U Epithel Cells (Auto) 6-10 H (0-2) /hpf Urine Bacteria (Auto) 4+ H (None Seen) SARS-CoV-2 (PCR) NEGATIVE (Negative) Influenza Type A (PCR) Negative (Neg) Influenza Type B (PCR) Negative (Neg) RSV (RT-PCR) Negative (Neg) Administered Medications Discontinued Medications Magnesium Sulfate/Dextrose (Magnesium Sulfate / D5w) 1 gm in 100 mls @ 100 mls/hr IV NOW STA Stop: 10/10/24 12:46 Last Infusion: 10/10/24 12:55 Dose: Infused Documented By: Admin: 10/10/24 11:53 Dose: 100 mls/hr Documented By: SKIP Ceftriaxone Sodium (Rocephin) 2,000 mg in 50 mls @ 100 mls/hr IV NOW STA Stop: 10/10/24 13:20 Last Admin: 10/10/24 13:01 Dose: 100 mls/hr Documented By: SKIP Imaging Data Attestation: I personally reviewed and interpreted this imaging study as follows: My Impression: 1 view chest x-ray was obtained in the emergency department. My interpretation is no free air or definite infiltrate, final report below. CT of the brain was obtained in the emergency department. My interpretation is no intracranial hemorrhage or mass effect, final report below. Radiologist's Impression: Chest X-Ray 10/10/24 09:36 EXAM: Radiograph of the Chest 1 View INDICATION: As pain TECHNIQUE: Frontal view of the chest. COMPARISON: 05/31/2024 FINDINGS: Lungs and pleural spaces: No consolidation or pulmonary edema. No pleural effusion or pneumothorax. Heart: Stable prominent cardiac shadow. Mediastinum: Probable small hiatal hernia. Bones/joints: No fracture, erosion or dislocation. Soft tissues: No abnormality noted. No radiopaque foreign body noted. Vasculature: Stable ectatic calcified aorta. Upper abdomen: No abnormality noted. IMPRESSION: No acute cardiopulmonary disease. ACT 112: N/A Electronically signed by Aicha Matta 10-10-2024 09:[address] 10/10/24 09:36 EXAM: CT Head Without Intravenous Contrast INDICATION: Generalized weakness. Multiple sclerosis. TECHNIQUE: Axial computed tomography images of the head/brain without intravenous contrast. Sagittal and/or coronal reformats are provided. Sagittal and coronal reformatted images were created and reviewed. This CT exam was performed using one or more of the following dose reduction techniques: automated exposure control, adjustment of the mA and/or kV according to patient size, and/or use of iterative reconstruction technique. COMPARISON: MRI brain 08/16/2021 FINDINGS: Limitations: None. Brain and extra-axial spaces: Periventricular white matter hypodensity unchanged. No acute infarct. No hemorrhage. No extra-axial fluid collection or hydrocephalus. Bones/joints: No acute changes. Soft tissues: No significant abnormality noted. Vasculature: Intracranial atherosclerotic calcification noted. Sinuses: There is moderate to severe diffuse mucosal thickening and opacification of the sinuses. Mastoid air cells: No mastoid effusion. Orbits: No significant abnormality noted. IMPRESSION: 1. Chronic white matter changes could reflect chronic small vessel ischemic change and or demyelination from multiple sclerosis. Grossly unchanged. 2. No acute abnormality in the brain. Consider MRI if additional imaging is clinically warranted. 3. Acute on chronic pansinusitis. ACT 112: N/A Electronically signed by Aicha Matta 10-10-2024 10:19 AM Discharge Plan Visit Data Chief Complaint: Weakness Stated Complaint: WEAKNESS ED Provider: Vernon Hale Discharge Problem: Weakness, UTI (urinary tract infection), Hypomagnesemia, Candidal intertrigo Patient Disposition: Being Evaluated by Hospitalist Forms Stand Alone Forms: My [facility] Prescriptions Prescriptions: No Action (DME) Power Wheelchair Device See Rx Instructions .Route Qty: 1 0RF Rx Instructions: As directed budesonide-formoterol 160-4.5 mcg/actuation HFA aerosol inhaler 2 puff inhalation BID Qty: 10.2 2RF (DME) Aerochamber MV Spacer See Rx Instructions .ROUTE .MEDSUPPLY Qty: 1 0RF Rx Instructions: As directed levothyroxine 25 mcg tablet 25 mcg PO DAILYBB omeprazole 20 mg capsule,delayed release(DR/EC) 20 mg PO PM benazepril 40 mg tablet 40 mg PO QAM aspirin 81 mg Tablet,Delayed Release (Dr/Ec) 81 mg PO QAM Qty: 30 0RF atorvastatin 40 mg tablet 40 mg PO HS fluticasone propion-salmeterol 250-50 mcg/dose blister with device 1 inh INHALATION BID Rx Instructions: Unable to verify this medication with patient/caregiver at this date/time. Was able to verify that it was picked up by Pharmacy. Original Directions: 1 inhalation twice daily docusate sodium 100 mg capsule 100 mg PO PM PRN (Reason: Constipation) cholecalciferol (vitamin D3) 125 mcg (5,000 unit) tablet 5,000 unit PO QAM turmeric 400 mg Capsule 400 mg PO QAM Rx Instructions: Unable to verify strength of OTC medication with patient/caregiver at this date/time. albuterol sulfate 2.5 mg /3 mL (0.083 %) solution for nebulization 2.5 mg continuous nebulization DIRECTED PRN (Reason: Shortness Of Breath Or Wheezing) diclofenac potassium 50 mg tablet 50 mg PO TID PRN (Reason: Pain) vitamin B complex Tablet 1 tab PO DAILY nystatin [Klayesta] 100,000 unit/gram powder 1 applic TOPICAL BID Rx Instructions: under breast Centrum Adult 50 Plus 80 mcg Tablet,Chewable 1 tab PO DAILY bumetanide 1 mg tablet 0.5 mg PO DIRECTED PRN (Reason: .edema) metformin 1,000 mg tablet 1,000 mg PO BID Referrals Referrals: Rhona Canales [Primary Care Provider] -
--- NOTE | 2024-10-10 09:49 | XRay Report ---
EXAM: Radiograph of the Chest 1 View INDICATION: As pain TECHNIQUE: Frontal view of the chest. COMPARISON: 05/31/2024 FINDINGS: Lungs and pleural spaces: No consolidation or pulmonary edema. No pleural effusion or pneumothorax. Heart: Stable prominent cardiac shadow. Mediastinum: Probable small hiatal hernia. Bones/joints: No fracture, erosion or dislocation. Soft tissues: No abnormality noted. No radiopaque foreign body noted. Vasculature: Stable ectatic calcified aorta. Upper abdomen: No abnormality noted. IMPRESSION: No acute cardiopulmonary disease. ACT 112: N/A Electronically signed by Aicha Matta 10-10-2024 09:49 AM
--- NOTE | 2024-10-10 10:19 | CT Scan Report ---
EXAM: CT Head Without Intravenous Contrast INDICATION: Generalized weakness. Multiple sclerosis. TECHNIQUE: Axial computed tomography images of the head/brain without intravenous contrast. Sagittal and/or coronal reformats are provided. Sagittal and coronal reformatted images were created and reviewed. This CT exam was performed using one or more of the following dose reduction techniques: automated exposure control, adjustment of the mA and/or kV according to patient size, and/or use of iterative reconstruction technique. COMPARISON: MRI brain 08/16/2021 FINDINGS: Limitations: None. Brain and extra-axial spaces: Periventricular white matter hypodensity unchanged. No acute infarct. No hemorrhage. No extra-axial fluid collection or hydrocephalus. Bones/joints: No acute changes. Soft tissues: No significant abnormality noted. Vasculature: Intracranial atherosclerotic calcification noted. Sinuses: There is moderate to severe diffuse mucosal thickening and opacification of the sinuses. Mastoid air cells: No mastoid effusion. Orbits: No significant abnormality noted. IMPRESSION: 1. Chronic white matter changes could reflect chronic small vessel ischemic change and or demyelination from multiple sclerosis. Grossly unchanged. 2. No acute abnormality in the brain. Consider MRI if additional imaging is clinically warranted. 3. Acute on chronic pansinusitis. ACT 112: N/A Electronically signed by Aicha Matta 10-10-2024 10:19 AM
[2024-10-10 11:02] LABS: Influenza A virus by PCR Negative (Neg); Influenza B virus by PCR Negative (Neg); RSV by PCR Negative (Neg); SARS CoV2 RNA(COVID-19) Ceph NEGATIVE (Negative)
[2024-10-10 11:15] LABS: Basophils # (auto) 0.02 K/uL (0.00-0.20); Basophils % (auto) 0.3 %; Eosinophils # (auto) 0.21 K/uL (0.00-0.50); Eosinophils % (auto) 2.9 %; Hematocrit (blood only) 42.8 % (37.0-47.0); Hemoglobin 14.2 g/dl (12.0-16.0); Immature Granulocytes # (auto) 0.03 K/uL (0.01-0.20); Immature Granulocytes % (auto) 0.4 %; Lymphocytes # (auto) 2.26 K/uL (1.20-3.40); Mean Corpuscular Hemoglobin 31.1 pg (25.0-34.0); Mean Corpuscular Hgb Conc 33.2 g/dL (32.0-36.0); Mean Corpuscular Volume 93.9 fL (80.0-100.0); Mean Platelet Volume 12.5 fL (9.4-12.4); Monocytes # (auto) 0.53 K/uL (0.11-0.59); Monocytes % (auto) 7.3 %; Neutrophils # (auto) 4.25 K/uL (1.40-6.50); Neutrophils % (auto) 58.1 %; Platelet Count 157 K/uL (130-400); RDW Coefficient of Variation 17.2 % (11.5-14.5); RDW Standard Deviation 59.7 fL (36.4-46.3); Red Blood Count 4.56 M/uL (4.20-5.40)
[2024-10-10 11:29] LABS: Alanine Aminotransferase 52 U/L (7-52); Alkaline Phosphatase 106 U/L (34-104); Anion Gap 6 (3-11); Aspartate Aminotransferase 57 U/L (13-39); BUN Creatinine Ratio 22.1 (10-20); Bilirubin,Total 0.5 mg/dl (0.2-1.0); Blood Urea Nitrogen 21 mg/dl (6-23); Calcium 10.3 mg/dl (8.6-10.3); Carbon Dioxide 30 mmol/L (21-32); Chloride 109 mmol/L (98-107); Creatine Kinase 26 U/L (26-192); Creatinine Clr Calc Pharmacy 63.3 ml/min; Globulin 3.9 gm/dl (2.5-4.0); Glucose 156 mg/dl (70-99(Fasting)); Magnesium 1.5 mg/dl (1.7-2.4); Sodium 145 mmol/L (136-145); Total Protein 7.9 gm/dl (6.0-8.3)
[2024-10-10 11:34] LABS: Troponin I High Sensitivity < 2.3 pg/ml (0-14)
[2024-10-10 11:43] LABS: Thyroid Stimulating Hormone 5.109 uIu/ml (0.300-4.500)
[2024-10-10] MEDS: MAGNESIUM SULFATE / D5W 1 GM/100 ML BAG IV STA (11:53)
[2024-10-10 12:11] LABS: Appearance Urine Cloudy (Clear); Bacteria Urine Automated 4+ (None Seen); Bilirubin Urine Negative (Negative); Blood Urine Negative (Negative); Cast Urine Automated 0-2 /lpf (0-2); Color Urine Yellow; Glucose Urine UA Negative (Negative); Ketones Urine 1+ (Negative); Leukocyte Esterase Urine 2+ (Negative); Nitrite Urine Positive (Negative); Protein Urine Trace (Negative); RBC Urine Automated 0-2 /hpf (0-2); Specific Gravity Urine 1.021 (1.000-1.030); Urobilinogen Urine Negative (Negative); WBC Urine Automated >50 /hpf (0-5); pH Urine 5.5 (4.5-7.5)
[2024-10-10 12:18] LABS: T4 Free Thyroxine 0.71 ng/dl (0.61-1.60)
[2024-10-10] MEDS: cefTRIAXone SODIUM 2,000 MG/50 ML BAG IV STA (13:01)
[2024-10-10 13:37] LABS: Partial Thromboplastin Ratio 0.8; Partial Thromboplastin Time 22 Seconds (21-31); Prothrombin Time 10.8 Seconds (9.0-12.0)
--- NOTE | 2024-10-10 14:26 | History & Physical Report ---
Date of Service October 10, 2024 Assessment & Plan (1) Weakness: (2) Multiple sclerosis: (3) Candidal intertrigo: (4) URI (upper respiratory infection): Plan weakness - this appears to be multifactorialwith a heavy overlay of deconditioning. Acutely she seems to be weaker because of the upper respiratory infection, but it sounds like this is superimposed on what is very severe chronic weakness. I suspect a lot of his deconditioning given how symmetric she examines, and unfort unately her morbid obesity with a BMI of 49.0 likely contributes to her immobility. At the same time, with her history of MS, weakness more focused on her legs, and no active management for her MSchecking MRI brain. If this shows active MS activity, would initiate Solu-Medrol and consult neurology; if it is negative, probably would want to MRI her C, T, and L-spine to rule out active MS activity before assuming this is all deconditioning. - PT/OT eval and treat, discussed with patient and family highly likely to need rehab/subacute rehab - TSH mildly elevated, nonspecific, especially given the T4 is normal (recheck in a month), check [id number] would obviously likely only be contributing factor is not defining factors of her weakness regardless. - outpatient sleep study (unless shows enough s/s that overnight pulse ox and AM ABG could be considered instead) multiple sclerosis - see above, await MRI, treat if shows an active MS activity; if MRI brain negative, would also look for any MS activity in her spinal cord before assuming that the MS is quiet at this time. If MS is active would start Solu-Medrol and consult neurology, if MS is quiet would ask nurse navigator to get her set up with neurology as an outpatient for ongoing management. Upper respiratory infection - all appears viral. I suspect this was the final cause of her weakness, but at the same time does not appear to require any specific treatment intertrigo - appears fairly severe. Nystatin powder, wound consult Dehydration - chronically poor p.o. intake. Hydrate with LR for 24 hours, encourage better p.o. fluid intake, discontinue as needed loop diuretic given that her edema appears to be venous stasis not congestive heart failure\\ DM -check A1c, continue metformin for now, fingersticks and supplemental insulin (build basal/bolus regimen if needed) hypertension - continue home meds for now, follow abnormal urinalysis - no urinary symptoms; no clear indication to treat at this time. Monitor for symptoms, follow clinically DVT prophylaxis - Lovenox disposition - admit to medical, anticipate need for rehab or subacute rehabbut obviously this will be contingent on PT/OT input. History of Present Illness Chief Complaint: Weakness Primary Care Provider: Rhona Canales patient is a very pleasant 69-year-old female accompanied by her family. Acutely she comes because over the last 24 hours she has gotten weaker than her baseline to where she can really not transfer anymore. This is accompanied by upper respiratory symptoms, cough/congestion. Prior to that, however, she was still quite weak mobility very limited, generally seems to have been able to transfer and loosely take care of herself but not really get around well. This seems to have been a slow decline. She focuses on her legs being weak as the main part of it. She has not seen a neurologist/had active management for MS in quite some time. Incidentally she probably only drinks 20-30 ounces of fluid a day as well. Also incidentally she denies any new urinary symptoms/dysuria/frequency/urgency. Family notes that whenever she gets a respiratory infection she seems to get noticeably weaker. She also notes areas of her skin that "seep" Allergies Allergy/AdvReac Type Severity Reaction Status Date / Time montelukast [From [facility]] Allergy Mild Unknown Verified 02/04/24 15:33 Fish Containing Products Allergy Unknown Unknown Verified 02/04/24 15:33 shellfish derived Allergy Unknown Verified 02/04/24 15:33 codeine AdvReac Mild NAUSEATED Verified 02/04/24 15:33 Home Medications Medication Instructions Recorded Confirmed Type benazepril 40 mg tablet 40 mg PO QAM 06/25/21 10/10/24 History levothyroxine 25 mcg tablet 25 mcg PO DAILYBB 06/25/21 10/10/24 History omeprazole 20 mg capsule,delayed 20 mg PO PM 06/25/21 10/10/24 History release aspirin 81 mg tablet,delayed 81 mg PO QAM #30 tabs 08/16/21 10/10/24 Rx release atorvastatin 40 mg tablet 40 mg PO HS 07/20/23 10/10/24 History fluticasone 250 mcg-salmeterol 50 1 inh inhalation BID 07/20/23 10/10/24 History mcg/dose blistr powdr for inhalation cholecalciferol (vitamin D3) 125 5,000 unit PO QAM 07/26/23 10/10/24 History mcg (5,000 unit) tablet docusate sodium 100 mg capsule 100 mg PO PM PRN Constipation 07/26/23 10/10/24 History turmeric 400 mg capsule 400 mg PO QAM 07/26/23 10/10/24 History albuterol sulfate 2.5 mg/3 mL 2.5 mg continuous nebulization 09/25/23 10/10/24 History (0.083 %) solution for nebulization DIRECTED PRN Shortness Of Breath Or Wheezing diclofenac potassium 50 mg tablet 50 mg PO TID PRN Pain 09/25/23 10/10/24 History vitamin B complex 1 tab PO DAILY 09/25/23 10/10/24 History Wheelchair (Powered) (Power #1 ea 11/05/23 02/04/24 Rx Wheelchair) bumetanide 1 mg tablet 0.5 mg PO DIRECTED PRN .edema 12/01/23 10/10/24 History multivitamin with minerals-folic 1 tab PO DAILY 12/01/23 10/10/24 History acid 80 mcg chewable tablet (Centrum Adult 50 Plus) nystatin 100,000 unit/gram topical 1 applic topical BID 12/01/23 10/10/24 History powder (Klayesta) budesonide-formoterol HFA 160 2 puff inhalation BID #10.2 grams 12/28/23 10/10/24 Rx mcg-4.5 mcg/actuation aerosol inhaler inhalational spacing device #1 ea 12/28/23 02/04/24 Rx (Aerochamber MV spacer) metformin 1,000 mg tablet 1,000 mg PO BID 10/10/24 10/10/24 History Past Med/Surg History Problem List Candidal intertrigo (Acute) Weakness (Acute) Eosinophilic asthma Severe persistent allergic asthma Shortness of breath (Acute) Asthma exacerbation (Acute) Edema (Acute) Dyspnea on exertion History of UTI Thrush Yeast dermatitis (Acute) Generalized muscle weakness (Acute) Acute UTI (urinary tract infection) (Acute) Morbid obesity Ventral hernia Hypothyroidism Hypertension Hypomagnesemia (Acute) Diabetes Multiple sclerosis (Acute) UTI (urinary tract infection) (Acute) Abnormal finding on diagnostic imaging of left kidney Medical History Hypomagnesemia Hypothermia URI (upper respiratory infection) Hypomagnesemia Dyspnea Left-sided weakness DUNCAN (acute kidney injury) Brain TIA Acute respiratory failure with hypoxia Osteoarthritis of knees, bilateral Sinusitis, acute Morbid obesity with BMI of 50.0-59.9, adult Tachy-rowena syndrome GERD (gastroesophageal reflux disease) Hypothyroidism Pancreatitis Thrombocytopenia Peripheral edema Septic shock Hypomagnesemia Fungal dermatitis Asthma Hypertension Diabetes Influenza A Pneumonia Multiple sclerosis Surgical History H/O tubal ligation H/O sinus surgery History of arthroscopic knee surgery Hx of tonsillectomy H/O: hysterectomy No pertinent past surgical history Family History Other Family history non-contributory Social History Smoking Status: Never smoker Second Hand Exposure: No; Do You Dip or Chew Tobacco: No; Hx Alcohol Use: No Hx Substance Use: No Preferred Language: Polish Communication Ability: Effective Custodian Blood Bank Required: No Beliefs That Will Affect Care: None marital status: Current Living Situation: Spouse Current Living Situation Comment: Spouse and granddaughter How many Children do You have: 2 Feels Safe at Home: Yes Diet: gluten free during the past year weight has: decreased > 10 lbs Assistive Devices: Nebulizer, Walker and Wheelchair Review of Systems Review of Systems: All systems reviewed & are unremarkable except as noted in HPI & below Physical Exam Physical Exam: In general she is awake alert oriented x 3 pleasant but very fatigued. No acute distress. HEENT normocephalic atraumatic oropharynx mildly erythematous mucous membranes quite dry. Cardio somewhat distant no rubs murmurs or gallops. Lungs diminished air entry, but no adventitious sounds/no rales rhonchi or wheezes good effort no accessory muscle use on room air no conversational dys pnea. Abdomen is soft nondistended nontender no masses or organomegaly. Extremities are without cyanosis or clubbing she has bilateral 12+ edema, equal, no calf tenderness. Neuro shows her to be weak in both of her legs, probably 3 out of 5, arms probably 4 out of 5, weakness is symmetric. Skin shows diffuse intertrigo in skin folds. labs and diagnostics noted. Results & Data Results & Data Vital Signs (Past 12 Hours) Vital Signs Temp Pulse Pulse Resp BP BP Pulse Ox 10/10/24 13:52 94 H 10/10/24 13:30 91 H 18 133/81 96 10/10/24 11:30 85 18 130/83 98 10/10/24 10:05 100 H 10/10/24 09:36 96 10/10/24 09:18 98.1 F 98 H 18 133/95 96 O2 Del Method 10/10/24 13:52 10/10/24 13:30 Room Air 10/10/24 11:30 Room Air 10/10/24 10:05 10/10/24 09:36 Room Air 10/10/24 09:18 Room Air Code Status & VTE Plan VTE Prophylaxis Plan VTE Prophylaxis will be ordered: Yes PG Care Time/CCT Total # of Minutes Spent Total Time Spent with Patient: Total time spent is greater than 50% in coordination of care (as documented) at patient's floor/unit and/or counseling patient: Coding Level of Care Code 31123 INT INP/OBS CARE 3/75MIN Diagnoses Weakness R53.1 Multiple sclerosis G35 Candidal intertrigo B37.2 URI (upper respiratory infection) J06.9
[2024-10-10] MEDS: LORazepam 2 MG/1 ML VIAL IV PRN (15:30)
[2024-10-10] MEDS ORDERED: ALUMINUM/MAGNESIUM SUSP 30 ML UDC PO PRN (17:03)
[2024-10-10] MEDS ORDERED: MAGNESIUM HYDROXIDE SUSP 30 ML UDC PO PRN (17:03)
[2024-10-10] MEDS ORDERED: MELATONIN 3 MG TAB PO PRN (17:03)
[2024-10-10] MEDS ORDERED: ALBUTEROL 0.083% NEBU SOLN 3 ML VIAL INH PRN (17:03)
[2024-10-10] MEDS: LACTATED RINGER'S 1,000 ML IV SCH (17:22)
--- NOTE | 2024-10-10 17:49 | Magnetic Resonance Report ---
EXAM: MR brain MS wo con CLINICAL HISTORY: Weakness, ?active MS TECHNIQUE: MRI of the brain was performed without contrast with multiplanar sequences obtained. COMPARISON: Comparison is made with prior imaging studies dated 08/15/2021. FINDINGS: Brain Parenchyma: Diffuse hyperintense T2 signals involving the periventricular region , callososeptal interface and subcortical area not showing restricted diffusion. Findings suggestive of demyelinating disease MS. No interval change. No evidence of acute infarction or hemorrhage. Normal salguero-white matter differentiation. No mass lesions or focal cortical abnormalities identified. Ventricles and Sulci: Prominent in size and configuration of the lateral ventricles, third ventricle, and fourth ventricle. No evidence of hydrocephalus or ventriculomegaly. Sylvian fissures, sulci, and cisterns are widened Posterior Fossa: Cerebellum and brainstem appear normal without evidence of mass lesions or signal abnormalities. Cranial Nerves: Normal course and appearance of cranial nerves identified. Vessels: No evidence of vascular malformations or aneurysms. Intracranial arteries and veins appear normal without evidence of stenosis or occlusion. Orbits and Skull Base: Mucosal thickening of the paranasal sinuses suggestive of sinusitis. Orbits and skull base structures are normal without evidence of abnormalities. IMPRESSION: 1. Diffuse hyperintense T2 signals involving the periventricular region , callososeptal interface and subcortical area not showing restricted diffusion. Findings suggestive of demyelinating disease MS. No interval change. Post-contrast MRI scan is needed to rule out activity. 2. Senile atrophic changes. 3. Mucosal thickening of the paranasal sinuses suggestive of sinusitis. Electronically signed by Himanshu Rooney 10-10-2024 5:49 PM
[2024-10-10] MEDS: INSULIN ASPART PER UNIT CHARGE SC SCH (17:52)
[2024-10-10] MEDS: ENOXAPARIN INJ 40 MG/0.4 ML SYR SQ SCH (18:37)
[2024-10-10] MEDS: metFORMIN HCL 500 MG TAB PO SCH (20:53)
[2024-10-10] MEDS: PANTOprazole 40 MG TAB PO SCH (20:53)
[2024-10-10] MEDS: ATORVASTATIN 40 MG TAB PO SCH (20:53)
[2024-10-10] MEDS: NYSTATIN POWDER 15GM BTL EXT SCH (20:53)
[2024-10-10] MEDS ORDERED: FLUTICASONE/SALMETEROL 250/50 (ADVAIR) 14 PUFF/1 INHALER INH SCH (21:00)
[2024-10-11] MEDS: ACETAMINOPHEN 325 MG TAB PO PRN (02:55)
[2024-10-11] MEDS: LEVOTHYROXINE SODIUM 25 MCG TABLET PO SCH (05:25)
[2024-10-11] MEDS: DICLOFENAC SODIUM 25 MG TABDR PO PRN (05:27)
[2024-10-11 07:50] LABS: Basophils # (auto) 0.02 K/uL (0.00-0.20); Basophils % (auto) 0.2 %; Eosinophils # (auto) 0.23 K/uL (0.00-0.50); Eosinophils % (auto) 2.9 %; Hematocrit (blood only) 38.3 % (37.0-47.0); Hemoglobin 12.2 g/dl (12.0-16.0); Immature Granulocytes # (auto) 0.03 K/uL (0.01-0.20); Immature Granulocytes % (auto) 0.4 %; Lymphocytes # (auto) 3.06 K/uL (1.20-3.40); Lymphocytes % (auto) 38.2 %; Mean Corpuscular Hemoglobin 30.4 pg (25.0-34.0); Mean Corpuscular Hgb Conc 31.9 g/dL (32.0-36.0); Mean Corpuscular Volume 95.5 fL (80.0-100.0); Mean Platelet Volume 12.5 fL (9.4-12.4); Monocytes # (auto) 0.71 K/uL (0.11-0.59); Monocytes % (auto) 8.9 %; Neutrophils # (auto) 3.96 K/uL (1.40-6.50); Neutrophils % (auto) 49.4 %; Platelet Count 141 K/uL (130-400); RDW Coefficient of Variation 17.6 % (11.5-14.5); RDW Standard Deviation 61.6 fL (36.4-46.3); Red Blood Count 4.01 M/uL (4.20-5.40); White Blood Count 8.01 K/ul (4.8-10.8)
[2024-10-11 07:55] LABS: BUN Creatinine Ratio 16.1 (10-20); Calcium 9.6 mg/dl (8.6-10.3); Creatinine Clr Calc Pharmacy 46.3 ml/min; Potassium 4.6 mmol/L (3.5-5.1)
[2024-10-11] MEDS: ENALAPRIL MALEATE 10 MG TAB PO SCH (07:56)
[2024-10-11] MEDS: CHOLECALCIFEROL 125 MCG (5,000 UNITS) TAB PO SCH (07:56)
[2024-10-11] MEDS: CEROVITE ADV FORMULA TAB PO SCH (07:57)
[2024-10-11] MEDS: ASPIRIN 81 MG ECTAB PO SCH (07:57)
[2024-10-11] MEDS: VITAMIN B COMPLEX TAB PO SCH (07:57)
[2024-10-11] MEDS: FLUTICASONE/VILANTEROL 200/25MCG 14 PUFFS/INHALER INH SCH (07:58)
--- NOTE | 2024-10-11 08:11 | Electrocardiogram Report ---
Test Reason : Blood Pressure : */* mmHG Vent. Rate : 99 BPM Atrial Rate : 99 BPM P-R Int : 188 ms QRS Dur : 74 ms QT Int : 344 ms P-R-T Axes : 34 -35 -4 degrees QTcB Int : 441 ms Normal sinus rhythm Left axis deviation Cannot rule out Inferior infarct , age undetermined Anterolateral infarct (cited on or before 15-Aug-2021) Abnormal ECG When compared with ECG of 02-Dec-2023 11:22, Sinus rhythm has replaced Junctional rhythm Minimal criteria for Inferior infarct are now Present Questionable change in initial forces of Lateral leads Confirmed by Smaantha Herron (Brandon) on 10/11/2024 8:10:28 AM Referred By: REFERRED SELF Confirmed By: Samantha Herron
[2024-10-11 08:54] LABS: Estimated Average Glucose 163 mg/dl; Hemoglobin A1C 7.3 % (4.5-5.6)
[2024-10-11] MEDS ORDERED: methylPREDNISolone 125 MG/2 ML VIAL IV SCH (09:00)
[2024-10-11] MEDS ORDERED: NON-FORMULARY MEDICATION (Turmeric 400 mg Capsule) PO SCH (09:00)
[2024-10-11] MEDS: methylPREDNISolone 40 MG in SYRINGE 0 ML IV SCH (09:59)
[2024-10-11] MEDS: cefTRIAXone SODIUM 2,000 MG/50 ML BAG IV SCH (15:28)
--- NOTE | 2024-10-11 16:33 | Neurology Consultation ---
Date of Consultation October 11, 2024 Assessment & Plan (1) Multiple sclerosis: Plan 69-year-old female with a history of multiple sclerosis which apparently became symptomatic in her late 30s, characterized by progressive ambulatory dysfunction, urinary incontinence, mild left hemiparesis, episode of possible bilateral optic neuritis followed by visual recovery. She had previously followed with Dr. Fox, local [facility] neurology. She does not recall ever taking specific treatment for her MS. More recently, she has seen Dr. Harris during a hospitalization last year for generalized weakness, as well as for a follow-up in our clinic last October. Potential treatment options were discussed with the patient although she never returned for follow-up care. At this point, it is unclear to me if this patient had relapsing remitting multiple sclerosis, followed by secondary progressive MS, or if she had primary progressive MS from onset. Relapsing remitting is of course for more common and may be the more likely diagnosis in spite of the limitation in getting a detaile d history from this patient given that disease onset was over 30 years ago. Although she may have secondary progressive MS, I doubt that she has secondary active progressive MS. The distinction is important, because if her MS is still active, there may be some benefit to starting disease modifying therapy. I do note that her recent brain MRI does not reveal any evidence of a new lesion compared with the previous MRI done in 2021 which would argue against any recent disease activity. Another diagnostic possibility for this patient could include neuromyelitis optica spectrum given her reported history of possible bilateral optic neuritis. I would recommend obtaining an MRI of the cervical and thoracic spine. Would obtain the studies with and without contrast as we have no spinal MRI priors for comparison and it would be helpful to see if there are any enhancing lesions that would otherwise suggest recent disease activity. If the studies depict any enhancing lesions within the spinal cord, then there may be some benefit to starting disease modifying therapy. Would also recommend NMO spectrum evaluation, serum study, [facility]. I will place orders for these tests. Patient may follow-up with Dr. Harris in neurology clinic in 2 to 3 weeks after discharge, to discuss her long-term management. Please call with any questions. History of Present Illness Reason for Consultation: h/o MS, concern for exacerbation Requesting Physician: Leona Attending Physician: Clive Benton MD History of Present Illness Patient is a 6 old female with a history of multiple sclerosis becoming symptomatic in the mid , characterized primarily by difficulty with gait. She does not recall having discrete relapses and remissions. Her function has gradually declined over many years with subsequent development of urinary incontinence. She does recall, however, having an episode of vision loss affecting both eyes, lasting for few days within within the mid to late as well. She thinks she was not diagnosed with multiple sclerosis until several years later, however. She does not think she ever had a lumbar puncture completed. She had initially been following with Dr. Fox, local [facility] neurology, but does not recall taking any specific treatment for MS or having an evaluation with an MS specialist at [facility] or other tertiary center. She has seen Dr. Harris during an admission to [facility] in September 2023, presenting with generalized weakness in the context of a recent asthma exacerbation. 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 She did have an outpatient follow-up with Dr. Harris in our clinic on November 05, 2023. At that point in time, it was felt the patient may benefit from starting disease modifying therapy for her MS, with consideration of either Vumerity or Ocrevus infusions. The looks like a trial of Vumerity was ultimately suggested. She was also given a prescription for a powered wheelchair at that point in time. She missed her follow-up appointment in January 2024 and has not rescheduled. It does not look like she ever started Vumerity, and she does not recall ever taking it. She informs me that she lives in a single level home with her spouse. She is able to ambulate very short distances with a walker, otherwise, she uses a wheelchair. She reports bilateral leg weakness, left greater than right, which is her typical baseline. She denies any headache, change in vision, vertigo, dysplasia, or significant difficulty using her hands or arms. She did have a noncontrast brain MRI, MS protocol, completed October 10, 2024. I did independently review these images. There is extensive white matter hyperintensity, periventricular, subcortical, juxtacortical, and infratentorial distribution. There is no significant difference compared with the previous MRI done in August 2021. We do not have any spinal MRIs on file for review. The patient presented to the emergency department October 10, 2024 with generalized weakness over the past few days, greater difficulty ambulating and making transfers. She appears to have a urinary tract infection and has been receiving Rocephin. She may have a viral respiratory infection as well in the context of persistent asthma. Allergies Allergy/AdvReac Type Severity Reaction Status Date / Time montelukast [From [facility]] Allergy Mild Unknown Verified 02/04/24 15:33 Fish Containing Products Allergy Unknown Unknown Verified 02/04/24 15:33 shellfish derived Allergy Unknown Verified 02/04/24 15:33 codeine AdvReac Mild NAUSEATED Verified 02/04/24 15:33 Home Medications Medication Instructions Recorded Confirmed Type benazepril 40 mg tablet 40 mg PO QAM 06/25/21 10/10/24 History levothyroxine 25 mcg tablet 25 mcg PO DAILYBB 06/25/21 10/10/24 History omeprazole 20 mg capsule,delayed 20 mg PO PM 06/25/21 10/10/24 History release aspirin 81 mg tablet,delayed 81 mg PO QAM #30 tabs 08/16/21 10/10/24 Rx release atorvastatin 40 mg tablet 40 mg PO HS 07/20/23 10/10/24 History fluticasone 250 mcg-salmeterol 50 1 inh inhalation BID 07/20/23 10/10/24 History mcg/dose blistr powdr for inhalation cholecalciferol (vitamin D3) 125 5,000 unit PO QAM 07/26/23 10/10/24 History mcg (5,000 unit) tablet docusate sodium 100 mg capsule 100 mg PO PM PRN Constipation 07/26/23 10/10/24 History turmeric 400 mg capsule 400 mg PO QAM 07/26/23 10/10/24 History albuterol sulfate 2.5 mg/3 mL 2.5 mg continuous nebulization 09/25/23 10/10/24 History (0.083 %) solution for nebulization DIRECTED PRN Shortness Of Breath Or Wheezing diclofenac potassium 50 mg tablet 50 mg PO TID PRN Pain 09/25/23 10/10/24 History vitamin B complex 1 tab PO DAILY 09/25/23 10/10/24 History Wheelchair (Powered) (Power #1 ea 11/05/23 02/04/24 Rx Wheelchair) bumetanide 1 mg tablet 0.5 mg PO DIRECTED PRN .edema 12/01/23 10/10/24 History multivitamin with minerals-folic 1 tab PO DAILY 12/01/23 10/10/24 History acid 80 mcg chewable tablet (Centrum Adult 50 Plus) nystatin 100,000 unit/gram topical 1 applic topical BID 12/01/23 10/10/24 History powder (Klayesta) budesonide-formoterol HFA 160 2 puff inhalation BID #10.2 grams 12/28/23 10/10/24 Rx mcg-4.5 mcg/actuation aerosol inhaler inhalational spacing device #1 ea 12/28/23 02/04/24 Rx (Aerochamber MV spacer) metformin 1,000 mg tablet 1,000 mg PO BID 10/10/24 10/10/24 History Patient History Medical History Hypomagnesemia Hypothermia URI (upper respiratory infection) Hypomagnesemia Dyspnea Left-sided weakness DUNCAN (acute kidney injury) Brain TIA Acute respiratory failure with hypoxia Osteoarthritis of knees, bilateral Sinusitis, acute Morbid obesity with BMI of 50.0-59.9, adult Tachy-rowena syndrome GERD (gastroesophageal reflux disease) Hypothyroidism Pancreatitis Thrombocytopenia Peripheral edema Septic shock Hypomagnesemia Fungal dermatitis Asthma Hypertension Diabetes Influenza A Pneumonia Multiple sclerosis Surgical History H/O tubal ligation H/O sinus surgery History of arthroscopic knee surgery Hx of tonsillectomy H/O: hysterectomy No pertinent past surgical history Family History Other Family history non-contributory Social History Smoking Status: Never smoker Second Hand Exposure: No; Do You Dip or Chew Tobacco: No; Hx Alcohol Use: No Hx Substance Use: No Preferred Language: Setswana Communication Ability: Effective Seismograph Observer Required: No Beliefs That Will Affect Care: None marital status: Current Living Situation: Spouse and Family Current Living Situation Comment: Spouse and granddaughter How many Children do You have: 2 Feels Safe at Home: Yes Diet: gluten free during the past year weight has: decreased > 10 lbs Assistive Devices: Nebulizer and Wheelchair Review of Systems Constitutional: + fatigue; no fever Eyes: as per Subjective / HPI; no blind spots and no diplopia Ear, Nose, Mouth, Throat: no hearing loss Respiratory: + cough and + dyspnea Cardiovascular: no chest pain and no palpitations Gastrointestinal: no nausea and no vomiting Genitourinary: + urinary incontinence Musculoskeletal: + muscle weakness; no myalgia Integumentary: + rash Neurologic: as per Subjective / HPI, + gait abnormality, + unsteadiness and + lack of coordination; no tremor(s), no abnormal movements, no headache(s), no abnormal speech, no confusion and no memory loss Psychiatric: no depression and no anxiety Hematologic / Lymphatic: no easy bleeding and no easy bruising Exam (Neuro) Constitutional: well developed and well nourished; no acute distress Eyes: normal visual collazo by confrontation, PERRL and EOM intact bilaterally; no nystagmus Neurologic: Oriented to:: Person, Place and Time Memory: Short Term Intact and Remote Intact Attention: Span Intact and Concentration Intact Speech Fluency: negative Dysarthria or Dysfluency Speech Aphasia: negative Aphasia Fund of Knowledge: Current Events, Past History and Vocabulary Cranial Nerves: Normal II, III, IV, , V, VII, VIII, IX, X, XI and XII Motor Strength: Hemiparesis (Mild) Laterality: Left; negative Normal Lower Extremities or Normal Upper Extremities Motor Tone: Normal Lower Extremities and Normal Upper Extremities Muscle Bulk/Involuntary Movements: No Involuntary Movements; negative Muscle Atrophy Sensation: Light Touch Intact, Pain/Temperature Intact and Proprioception Intact; negative Vibration Intact Coordination: Finger-Nose Abnormal and Heel-Shoemaker Abnormal Deep Tendon Reflexes: Rt Triceps: 2+, Lt Triceps: 2+, Rt Biceps: 2+, Lt Biceps: 2+, Rt Brachioradialis: 2+, Lt Brachioradialis: 2+, Rt Patellar: 2+, Lt Patellar: 2+, Rt Ankle: 1+ and Lt Ankle: 1+ Details: Patient examined sitting up in a bedside chair, gait could not be tested Results & Data Vital Signs (Past 12 Hours) Vital Signs Temp Pulse Resp BP Pulse Ox O2 Del Method 10/11/24 08:00 Room Air 10/11/24 07:59 36.6 C 63 19 110/74 94 Room Air Laboratory Results WBC 8.01, hemoglobin 12.2, hematocrit 38.3, platelet count 141, sodium 145, potassium 4.6, BUN 20, creatinine 1.24, glucose 118, hemoglobin A1c 7.3, calcium 9.6, magnesium 1.5, AST 57, ALT 52, total CK20 6, vitamin B12 1085, TSH 5.109, free T40.71 Diagnostic Findings Electrocardiogram reveals a normal sinus rhythm, 91 bpm. Coding Level of Care Code 48885 INT INP/OBS CARE 3/75MIN Diagnoses Multiple sclerosis G35 Time Spent (min) 90 Comment Total time includes patient contact, chart review, counseling, note preparation
--- NOTE | 2024-10-11 18:13 | Hospitalist Progress Note ---
Date of Service October 11, 2024 Assessment & Plan (1) Weakness: (2) Multiple sclerosis: (3) Candidal intertrigo: (4) URI (upper respiratory infection): Plan This is a 69 year old female w/ past medical history of Diabetes, MS, eosinophilic asthma who presented to the ED on 10/11 for weakness. #Weakness/MS/UTI Likely multi-factorial secondary to MS, deconditioning, UTI, and URI CBC/BMP stable, slight bump in creatinine, will continue to trend. TSH mildly elevated, nonspecific given normal T4. Recommend rechecking outpatient in a month. CXR: negative Head CT: chronic white matter changes could reflext small vessel ischemic change and or demyelination from MS. Grossly unchanged Brain MRI: diffuse hyperintense T2 signals involving periventricular region, callososeptal interface & subcortical area not showing restricted diffusion. Findings suggestive of demyelinating disease MS. no interval change. Rocephin started for UTI 10/11, UC pending, patient w/o urinary symptoms. Supportive care for URI IV Solu medrol started 10/11 at 40mg BID s/p IVF Neurology consulted 10/11 - recommending obtaining MRI w/w/o contrast of cervical & thoracic spine, NMP spectrum eval, serum study, and [facility]. PT/OT consulted - recommending rehab. #intertrigo appears fairly severe. Wound nurse consulted - nystatin. clean folds gently, pat dry & dust w/ antifungal powder. Place sheets of Kaltostat into fold. #DM A1c 7.3% Continue metformin for now fingersticks and supplemental insulin (build basal/bolus regimen if needed) #hypertension continue home meds for now, follow DVT prophylaxis: Lovenox Code: full Discussed w/ neurology 10/11. Admission and Anticipated Discharge Date Admission Date: October 10, 2024 Supervising Physician Co-Signing Physician Notes Attending Attestation: Chart reviewed, care plan d/w KATHY Delgadillo. I agree w/ the ray components of her documentation. Appreciate neuro consult/recs. Await T-spine/C-spine MRIs due to MS. Until then cont steroids. Rocephin for UTI. Clive Benton MD Subjective Patient seen and examined this morning. Patient reports to be feeling okay today. She still has a cough and some mild congestion but denies any additional complaints. Physical Exam Constitutional: WD/WN, vitals as above Eyes: PERRL, conjunctivae normal, anicteric sclerae Respiratory: normal respiratory effort, lungs clear to auscultation Cardiovascular: RRR, no murmur, no edema Psychiatric: A+Ox3, euthymic affect Results & Data Results & Data Vital Signs (Past 12 Hours) Vital Signs Temp Pulse Resp BP Pulse Ox O2 Del Method 10/11/24 08:00 Room Air 10/11/24 07:59 36.6 C 63 19 110/74 94 Room Air PG Care Time/CCT Total # of Minutes Spent Total Time Spent with Patient: Total time spent is greater than 50% in coordination of care (as documented) at patient's floor/unit and/or counseling patient: Coding Level of Care Code 87773 SUB INP/OBS CARE 3/50MIN Diagnoses Weakness R53.1 Multiple sclerosis G35 Candidal intertrigo B37.2 URI (upper respiratory infection) J06.9
[2024-10-11] MEDS: GADOBUTROL 65ML VIAL IV ONE (19:56)
[2024-10-11] MEDS: ONDANSETRON INJ 2 MG/ML 2 ML VIAL IV PRN (20:27)
[2024-10-11] MEDS: IPRATROPIUM BROMIDE NASAL SPRAY 0.03% 30 ML NAE SCH (20:38)
--- NOTE | 2024-10-11 22:03 | Magnetic Resonance Report ---
Exam(s): MRI C SPINE EXAM: MR Cervical Spine Without Intravenous Contrast CLINICAL HISTORY: Multiple sclerosis TECHNIQUE: Magnetic resonance images of the cervical spine without intravenous contrast in multiple planes. COMPARISON: No relevant prior studies available. FINDINGS: Vertebrae: No acute fracture. No malalignment. Spinal cord: There are several short segment plaques of the spinal cord involving the right anterior lateral column at the level of C3 or C4, the left hemicord and right anterior cord at the level of C4-C5 and the left hemicord at the level of C6. Question subtle enhancement of the C6 plaque concerning for active disease. Soft tissues: Unremarkable. DISCS/SPINAL CANAL/NEURAL FORAMINA: C2-C3: Mild uncovertebral spurs and ligament flavum hypertrophy result in mild bilateral neuroforaminal stenosis. No spinal canal stenosis. C3-C4: Mild disc osteophyte complex, ligament flavum hypertrophy and uncovertebral spurs result in severe right and moderate left neuroforaminal stenosis. There is mild spinal canal stenosis. C4-C5: Disc osteophyte complex, ligamentum flavum hypertrophy and uncovertebral spurs result in moderate right neuroforaminal stenosis. There is minimal spinal canal stenosis. C5-C6: Disc ossified complex and uncovertebral spurs result in moderate bilateral neural foraminal stenosis. There is mild spinal canal stenosis. C6-C7: Mild disc ossified complex and uncovertebral spurs result in no significant stenosis. C7-T1: Unremarkable. No significant disc disease. No stenosis. IMPRESSION: 1. There are several short segment plaques of the spinal cord involving the right anterior lateral column at the level of C3 or C4, the left hemicord and right anterior cord at the level of C4-C5 and the left hemicord at the level of C6. Question subtle enhancement of the C6 plaque concerning for active disease. Clinical correlation is recommended. 2. Degenerative changes are detailed above. Electronically signed by: Jennifer Power MD 10/11/24 22:03 PM
--- NOTE | 2024-10-11 22:20 | Magnetic Resonance Report ---
Exam(s): MRI T SPINE W/WO Contrast EXAM: MR Thoracic Spine Without and With Intravenous Contrast CLINICAL HISTORY: Multiple sclerosis TECHNIQUE: Magnetic resonance images of the thoracic spine without and with intravenous contrast in multiple planes. CONTRAST: IV contrast was utilized, please see C-spine dictation. COMPARISON: No relevant prior studies available. FINDINGS: Vertebrae: There is accentuated kyphosis of the upper thoracic spine. No acute fracture. Discs/spinal canal/neural foramina: No significant stenosis as visualized. Spinal cord: There is a small short segment plaques involving the right shahbaz-cord at the level of T3, left hemicord at the level of T8 and central cord at the level of T9-T10. No definitive enhancement to suggest active disease. Soft tissues: Nonspecific body wall edema of the back. Other findings: Please note patient motion especially of the postcontrast images makes evaluation difficult. IMPRESSION: 1. There is a small short segment plaques involving the right shahbaz-cord at the level of T3, left hemicord at the level of T8 and central cord at the level of T9-T10. No definitive enhancement to suggest active disease. 2. Please note patient motion especially of the postcontrast images makes evaluation difficult. Electronically signed by: Jennifer Power MD 10/11/24 22:19 PM
[2024-10-12 07:21] LABS: Hematocrit (blood only) 38.5 % (37.0-47.0); Hemoglobin 12.5 g/dl (12.0-16.0); Mean Corpuscular Hemoglobin 30.4 pg (25.0-34.0); Mean Corpuscular Hgb Conc 32.5 g/dL (32.0-36.0); Mean Corpuscular Volume 93.7 fL (80.0-100.0); Mean Platelet Volume 12.9 fL (9.4-12.4); Platelet Count 153 K/uL (130-400); RDW Coefficient of Variation 16.9 % (11.5-14.5); RDW Standard Deviation 58.3 fL (36.4-46.3); Red Blood Count 4.11 M/uL (4.20-5.40); White Blood Count 11.96 K/ul (4.8-10.8)
[2024-10-12 07:43] LABS: BUN Creatinine Ratio 26.2 (10-20); Calcium 9.9 mg/dl (8.6-10.3); Creatinine Clr Calc Pharmacy 45.6 ml/min; Potassium 5.3 mmol/L (3.5-5.1)
[2024-10-12 08:35] LABS: Magnesium 1.6 mg/dl (1.7-2.4)
[2024-10-12] MEDS: DOCUSATE SODIUM 100 MG CAP PO PRN (09:05)
[2024-10-12] MEDS: POLYETHYLENE (MIRALAX) 17 GM PACK PO PRN (09:05)
[2024-10-12] MEDS: CEFEPIME 2000MG 2,000 MG/20 ML SYR IV SCH (14:20)
--- NOTE | 2024-10-12 16:01 | Neurology Progress Note ---
Date of Service October 12, 2024 Assessment & Plan (1) Multiple sclerosis: Plan 69-year-old female with a history of multiple sclerosis becoming symptomatic over 30 years ago. She has extensive chronic foci of demyelination throughout the brain and spinal cord. No new lesions on brain MRI, no definitive active spinal cord lesions with gadolinium enhancement. 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 She may follow-up with Dr. Harris in neurology clinic to discuss her management going forward. Given her advanced age and risk of infection with most MS treatments, the benefit of starting disease modifying therapy for MS may be exceeded by the risk of such treatment. Neuromyelitis optica spectrum serology pending. No further immediate recommendations. As above, patient may follow-up with Dr. Harris in neurology clinic in 2 to 3 weeks after discharge. Please call with any questions. Admission and Anticipated Discharge Date Admission Date: October 10, 2024 Subjective Follow-up cirrhosis Patient has completed the additional requested MRIs of the cervical and thoracic spine, studies done with and without gadolinium enhancement. The studies reveal multiple foci of chronic demyelination within the cervical and thoracic spinal cord. There was a questionable area of gadolinium enhancement within the left hemicord at C6. The overnight interpreting radiologist. I reviewed these images independently with Dr. Aguilar, [facility] radiology. No definitive abnormal postcontrast enhancement on the observed finding on the artifactual. I discussed these results with the patient at bedside. She does not have any new neurologic complaints. She has chronic lower extremity weakness, left greater than right feels as if she is back to her baseline. Results & Data Vital Signs (Past 12 Hours) Vital Signs Temp Pulse Resp BP Pulse Ox O2 Del Method 10/12/24 14:21 36.3 C L 104 H 17 97/66 L 92 Room Air 10/12/24 08:00 Room Air 10/12/24 07:52 36.3 C L 111 H 16 125/62 91 Room Air Exam (Neuro) Neurologic: Oriented to:: Person, Place and Time Memory: Short Term Intact and Remote Intact Attention: Span Intact and Concentration Intact Speech Fluency: negative Dysarthria or Dysfluency Speech Aphasia: negative Aphasia Fund of Knowledge: Current Events, Past History and Vocabulary Cranial Ner ves: Normal II, III, IV, , V, VII, VIII, IX, X, XI and XII Motor Strength: Normal Upper Extremities; negative Normal Lower Extremities Motor Tone: Normal Lower Extremities and Normal Upper Extremities Muscle Bulk/Involuntary Movements: No Involuntary Movements; negative Muscle Atrophy Coordination: Heel-Shoemaker Abnormal; negative Finger-Nose Abnormal Coding Level of Care Code 65776 SUB INP/OBS CARE 2/35MIN Diagnoses Multiple sclerosis G35 Time Spent (min) 35 Comment Total time includes patient contact, chart review, counseling, note preparation
--- NOTE | 2024-10-12 16:18 | Hospitalist Progress Note ---
Date of Service October 12, 2024 Assessment & Plan (1) Weakness: (2) Multiple sclerosis: (3) Candidal intertrigo: (4) URI (upper respiratory infection): Plan This is a 69 year old female w/ past medical history of Diabetes, MS, eosinophilic asthma who presented to the ED on 10/11 for weakness. #Weakness/MS Likely multi-factorial secondary to MS, deconditioning, UTI, and URI TSH mildly elevated, nonspecific given normal T4. Recommend rechecking outpatient in a month. CXR: negative Head CT: chronic white matter changes could reflext small vessel ischemic change and or demyelination from MS. Grossly unchanged Brain MRI: diffuse hyperintense T2 signals involving periventricular region, callososeptal interface & subcortical area not showing restricted diffusion. Findings suggestive of demyelinating disease MS. no interval change. Cervical spine MRI: several short segment plaques of spinal cord involving right anterior lateral colum @ C3/C4, left hemicord & right anterior cord @ C4/C5, left hemicord C6. Question subtle enhancement of C6 plaque concerning for active disease Thoracic spine MRI: small short segment plaques involving right shahbaz-cord @ T3, left hemicord T8, central cord T9/T10. No definitive enhancement to suggestive active disease. Discussed w/ neurology 10/12 - nothing concerning for active disease based on Dr. Hung's interpretation and also 2nd opinion from radiology. Patient may follow up outpatient. Steroids discontinued due to no active MS. s/p IVF PT/OT consulted - recommending rehab. #UTI Urinalysis + for UTI, Rocephin started 10/11. CBC w/ slight leukocytosis but may be secondary to steroids vs secondary to UTI, continue to trend BMP w/ slight increase in creatinine of 1.26, K 5.3, continue to trend. UC growing pseudomonas, switched to Cefepime 10/12, await sensitivities. #intertrigo Wound nurse consulted - nystatin. clean folds gently, pat dry & dust w/ antifungal powder. Place sheets of Kaltostat into fold. #DM A1c 7.3% Continue metformin for now fingersticks and supplemental insulin (build basal/bolus regimen if needed) #hypertension continue home meds for now, follow DVT prophylaxis: Lovenox Code: full Discussed w/ neurology 10/12 Admission and Anticipated Discharge Date Admission Date: October 10, 2024 Supervising Physician Co-Signing Physician Notes Attending Attestation: Chart reviewed, care plan d/w KATHY Delgadillo. I agree w/ the ray components of her documentation. Appreciate neuro consult/recs. No active MS based on current imaging - can stop steroids, but needs f/u with neuro post-d/c. Pseudomonas/klebsiella UTI - agree with change in IV abx. Clive Benton MD Subjective Patient seen and examined this morning. Patient denied any acute complaints today. Physical Exam Constitutional: WD/WN, vitals as above Eyes: PERRL, conjunctivae normal, anicteric sclerae Respiratory: normal respiratory effort, lungs clear to auscultation Cardiovascular: RRR, no murmur, no edema Psychiatric: A+Ox3, euthymic affect Results & Data Results & Data Vital Signs (Past 12 Hours) Vital Signs Temp Pulse Resp BP Pulse Ox O2 Del Method 10/12/24 14:21 36.3 C L 104 H 17 97/66 L 92 Room Air 10/12/24 08:00 Room Air 10/12/24 07:52 36.3 C L 111 H 16 125/62 91 Room Air PG Care Time/CCT Total # of Minutes Spent Total Time Spent with Patient: Total time spent is greater than 50% in coordination of care (as documented) at patient's floor/unit and/or counseling patient: Coding Level of Care Code 54666 SUB INP/OBS CARE 3/50MIN Diagnoses Weakness R53.1 Multiple sclerosis G35 Candidal intertrigo B37.2 URI (upper respiratory infection) J06.9
[2024-10-13 07:48] LABS: Basophils # (auto) 0.02 K/uL (0.00-0.20); Basophils % (auto) 0.2 %; Eosinophils # (auto) 0.07 K/uL (0.00-0.50); Eosinophils % (auto) 0.6 %; Hematocrit (blood only) 34.5 % (37.0-47.0); Hemoglobin 11.2 g/dl (12.0-16.0); Immature Granulocytes # (auto) 0.16 K/uL (0.01-0.20); Immature Granulocytes % (auto) 1.4 %; Lymphocytes # (auto) 3.41 K/uL (1.20-3.40); Mean Corpuscular Hgb Conc 32.5 g/dL (32.0-36.0); Mean Corpuscular Volume 95.6 fL (80.0-100.0); Mean Platelet Volume 12.6 fL (9.4-12.4); Monocytes # (auto) 0.93 K/uL (0.11-0.59); Monocytes % (auto) 7.9 %; Neutrophils # (auto) 7.15 K/uL (1.40-6.50); Neutrophils % (auto) 60.9 %; Platelet Count 125 K/uL (130-400); RDW Coefficient of Variation 16.9 % (11.5-14.5); RDW Standard Deviation 59.2 fL (36.4-46.3); Red Blood Count 3.61 M/uL (4.20-5.40); White Blood Count 11.74 K/ul (4.8-10.8)
[2024-10-13 08:10] LABS: Calcium 9.9 mg/dl (8.6-10.3); Creatinine Clr Calc Pharmacy 38.1 ml/min; Magnesium 1.5 mg/dl (1.7-2.4); Potassium 4.7 mmol/L (3.5-5.1)
[2024-10-13] MEDS: MAGNESIUM SULFATE / D5W 1 GM/100 ML BAG IV SCH (08:49)
--- NOTE | 2024-10-13 09:51 | Ultrasound Report ---
RENAL ULTRASOUND CLINICAL HISTORY: UTI, rising creatinine COMPARISON STUDY: CT of the abdomen and pelvis July 25, 2021. TECHNIQUE: Sonography of the kidneys and the urinary bladder was performed. FINDINGS: This exam is compromised by suboptimal penetration. However, there is no hydronephrosis. Mo derate renal cortical thinning is noted. A 2 cm left renal lesion is anechoic. This represents a cyst . No renal calculi identified. Bladder is not well visualized. IMPRESSION: 1. No hydronephrosis. Exam compromised by suboptimal penetration. 2. Moderate bilateral renal cortical thinning. ACT 112: Negative or not required by law. Electronically signed by: Pete Aguilar M.D. 10/13/2024 9:49 AM
[2024-10-13] MEDS: SODIUM CHLORIDE 0.9% 500 ML IV ONE (11:22)
--- NOTE | 2024-10-13 17:12 | Hospitalist Progress Note ---
Date of Service October 13, 2024 Assessment & Plan (1) Weakness: (2) Multiple sclerosis: (3) Candidal intertrigo: (4) URI (upper respiratory infection): (5) DUNCAN (acute kidney injury): Plan This is a 69 year old female w/ past medical history of Diabetes, MS, eosinophilic asthma who presented to the ED on 10/11 for weakness. #Weakness/MS Likely multi-factorial secondary to MS, deconditioning, UTI, and URI TSH mildly elevated, nonspecific given normal T4. Recommend rechecking outpatient in a month. CXR: negative Head CT: chronic white matter changes could reflext small vessel ischemic change and or demyelination from MS. Grossly unchanged Brain MRI: diffuse hyperintense T2 signals involving periventricular region, callososeptal interface & subcortical area not showing restricted diffusion. Findings suggestive of demyelinating disease MS. no interval change. Cervical spine MRI: several short segment plaques of spinal cord involving right anterior lateral colum @ C3/C4, left hemicord & right anterior cord @ C4/C5, left hemicord C6. Question subtle enhancement of C6 plaque concerning for active disease Thoracic spine MRI: small short segment plaques involving right shahbaz-cord @ T3, left hemicord T8, central cord T9/T10. No definitive enhancement to suggestive active disease. Discussed w/ neurology 10/12 - nothing concerning for active disease based on Dr. Hung's interpretation and also 2nd opinion from radiology. Patient may follow up outpatient. Steroids discontinued 10/12 due to no active MS. PT/OT consulted - recommending rehab. Referral placed for [facility]. #UTI/DUNCAN CBC w/ stable leukocytosis of 11.74; Procal negative. BMP w/ slight increase in creatinine of 1.51; Mag low at 1.5 s/p repletion. Enalapril on hold. Renal US 10/13 - negative UC growing pansensitive pseudomonas and klebsiella, switched to Cefepime 4/ AM CBC, BMP, mag #intertrigo Wound nurse consulted - nystatin. clean folds gently, pat dry & dust w/ antifungal powder. Place sheets of Kaltostat into fold. #DM A1c 7.3% Continue metformin for now fingersticks and supplemental insulin (build basal/bolus regimen if needed) #hypertension Patient w/ hypotension 4/2 (90/64) s/p 500cc bolus NSS w/ improvement of BP to 100/64. Monitor closely outpatient medications on hold. DVT prophylaxis: Lovenox Code: full Admission and Anticipated Discharge Date Admission Date: October 10, 2024 Supervising Physician Co-Signing Physician Notes Attending Attestation: Chart reviewed, care plan d/w KATHY Delgadillo. I agree w/ the ray components of her documentation. No active MS based on current imaging - can stop steroids, but needs f/u with neuro post-d/c. Pseudomonas/klebsiella UTI - cont IV cefepime; can ultimately transition to PO cipro as pseudomonas is pansensitive. Clive Benton MD Subjective Patient seen and examined this morning. Patient reports she was feeling okay this morning. Denied dizziness. Denied CP or SOB. Physical Exam Constitutional: WD/WN, vitals as above Eyes: PERRL, conjunctivae normal, anicteric sclerae Respiratory: breathing unlabored Cardiovascular: well perfused Psychiatric: A+Ox3, euthymic affect Results & Data Results & Data Vital Signs (Past 12 Hours) Vital Signs Pulse Resp BP BP Pulse Ox O2 Del Method 10/13/24 14:54 70 18 100/64 97 Room Air 10/13/24 13:30 76 20 98/63 L 98 Room Air 10/13/24 11:00 62 20 90/60 L 96 Room Air 10/13/24 08:00 Room Air 10/13/24 07:42 60 16 93/60 L 94 Room Air PG Care Time/CCT Total # of Minutes Spent Total Time Spent with Patient: Total time spent is greater than 50% in coordination of care (as documented) at patient's floor/unit and/or counseling patient: Coding Level of Care Code 80835 SUB INP/OBS CARE 3/50MIN Diagnoses Weakness R53.1 Multiple sclerosis G35 Candidal intertrigo B37.2 URI (upper respiratory infection) J06.9 DUNCAN (acute kidney injury) N17.9
[2024-10-14 08:43] LABS: Basophils # (auto) 0.02 K/uL (0.00-0.20); Basophils % (auto) 0.2 %; Eosinophils # (auto) 0.16 K/uL (0.00-0.50); Eosinophils % (auto) 1.9 %; Hematocrit (blood only) 35.5 % (37.0-47.0); Hemoglobin 11.5 g/dl (12.0-16.0); Immature Granulocytes # (auto) 0.05 K/uL (0.01-0.20); Immature Granulocytes % (auto) 0.6 %; Lymphocytes # (auto) 2.99 K/uL (1.20-3.40); Lymphocytes % (auto) 36.2 %; Mean Corpuscular Hemoglobin 30.3 pg (25.0-34.0); Mean Corpuscular Hgb Conc 32.4 g/dL (32.0-36.0); Mean Corpuscular Volume 93.7 fL (80.0-100.0); Mean Platelet Volume 12.8 fL (9.4-12.4); Monocytes # (auto) 0.72 K/uL (0.11-0.59); Monocytes % (auto) 8.7 %; Neutrophils # (auto) 4.33 K/uL (1.40-6.50); Neutrophils % (auto) 52.4 %; Platelet Count 133 K/uL (130-400); RDW Coefficient of Variation 16.8 % (11.5-14.5); RDW Standard Deviation 55.9 fL (36.4-46.3); Red Blood Count 3.79 M/uL (4.20-5.40); White Blood Count 8.27 K/ul (4.8-10.8)
[2024-10-14 09:03] LABS: BUN Creatinine Ratio 40.4 (10-20); Calcium 9.8 mg/dl (8.6-10.3); Creatinine Clr Calc Pharmacy 55.3 ml/min; Magnesium 1.6 mg/dl (1.7-2.4); Potassium 4.7 mmol/L (3.5-5.1)
--- NOTE | 2024-10-14 15:39 | Hospitalist Progress Note ---
Date of Service October 14, 2024 Assessment & Plan (1) Weakness: (2) Multiple sclerosis: (3) Candidal intertrigo: (4) URI (upper respiratory infection): (5) DUNCAN (acute kidney injury): Plan This is a 69 year old female w/ past medical history of Diabetes, MS, eosinophilic asthma who presented to the ED on 10/11 for weakness. #Weakness/MS Likely multi-factorial secondary to MS, deconditioning, UTI, and URI TSH mildly elevated, nonspecific given normal T4. Recommend rechecking outpatient in a month. CXR: negative Head CT: chronic white matter changes could reflext small vessel ischemic change and or demyelination from MS. Grossly unchanged Brain MRI: diffuse hyperintense T2 signals involving periventricular region, callososeptal interface & subcortical area not showing restricted diffusion. Findings suggestive of demyelinating disease MS. no interval change. Cervical spine MRI: several short segment plaques of spinal cord involving right anterior lateral colum @ C3/C4, left hemicord & right anterior cord @ C4/C5, left hemicord C6. Question subtle enhancement of C6 plaque concerning for active disease Thoracic spine MRI: small short segment plaques involving right shahbaz-cord @ T3, left hemicord T8, central cord T9/T10. No definitive enhancement to suggestive active disease. Discussed w/ neurology 10/12 - nothing concerning for active disease based on Dr. Hung's interpretation and also 2nd opinion from radiology. Patient may follow up outpatient. Steroids discontinued 10/12 due to no active MS. PT/OT consulted - recommending rehab. Referral placed for [facility]. #UTI/DUNCAN CBC w/ resolution of leukocytosis; Procal negative. BMP w/ normal creatinine, DUNCAN resolved. ; Mag low at 1.6 s/p repletion. Enalapril on hold Renal US 10/13 - negative UC growing pansensitive pseudomonas and klebsiella, switched to Cefepime 4 AM CBC, BMP, mag #intertrigo Wound nurse consulted - nystatin. clean folds gently, pat dry & dust w/ antifungal powder. Place sheets of Kaltostat into fold. #DM A1c 7.3% Continue metformin for now fingersticks and supplemental insulin (build basal/bolus regimen if needed) #hypertension Patient w/ hypotension / (90/64) Pressures remain stable. Monitor closely outpatient medications on hold. DVT prophylaxis: Lovenox Code: full Admission and Anticipated Discharge Date Admission Date: October 10, 2024 Subjective Patient seen and examined this morning. patient reports to be feeling well today. She denied any complaints. Reports she is looking forward to rehab to get stronger so she can return home. Physical Exam Constitutional: WD/WN, vitals as above Eyes: PERRL, conjunctivae normal, anicteric sclerae Respiratory: breathing unlabored Cardiovascular: well perfused Psychiatric: A+Ox3, euthymic affect Results & Data Results & Data Vital Signs (Past 12 Hours) Vital Signs Temp Pulse Resp BP Pulse Ox O2 Del Method 10/14/24 14:49 36.6 C 92 H 16 112/73 95 Room Air 10/14/24 07:43 36.7 C 73 16 96/59 L 92 Room Air 10/14/24 07:15 Room Air PG Care Time/CCT Total # of Minutes Spent Total Time Spent with Patient: Total time spent is greater than 50% in coordination of care (as documented) at patient's floor/unit and/or counseling patient: Coding Level of Care Code 72226 SUB INP/OBS CARE 2/35MIN Diagnoses Weakness R53.1 Multiple sclerosis G35 Candidal intertrigo B37.2 URI (upper respiratory infection) J06.9 DUNCAN (acute kidney injury) N17.9
[2024-10-14] MEDS: MAGNESIUM SULFATE / D5W 1 GM/100 ML BAG IV ONE (15:54)
[2024-10-15 00:43] VITALS: RESP 20
[2024-10-15 07:32] VITALS: BP 109/70; PULSE 81; TEMP 97.2; O2SAT 93
[2024-10-15 08:18] LABS: Hemoglobin 11.9 g/dl (12.0-16.0); Mean Corpuscular Hemoglobin 30.8 pg (25.0-34.0); Mean Corpuscular Hgb Conc 33.1 g/dL (32.0-36.0); Mean Corpuscular Volume 93.3 fL (80.0-100.0); Mean Platelet Volume 13.1 fL (9.4-12.4); Platelet Count 148 K/uL (130-400); RDW Coefficient of Variation 16.9 % (11.5-14.5); RDW Standard Deviation 56.9 fL (36.4-46.3); Red Blood Count 3.86 M/uL (4.20-5.40)
[2024-10-15 08:37] LABS: BUN Creatinine Ratio 37.2 (10-20); Calcium 9.6 mg/dl (8.6-10.3); Creatinine Clr Calc Pharmacy 61.1 ml/min; Magnesium 1.5 mg/dl (1.7-2.4); Potassium 4.6 mmol/L (3.5-5.1)
--- NOTE | 2024-10-15 11:10 | Discharge Summary ---
Discharge Summary Date of Service October 15, 2024 Principal Dx & Hospital Course #1 = Principal Diagnosis (1) Weakness: (2) Multiple sclerosis: (3) Candidal intertrigo: (4) URI (upper respiratory infection): (5) DUNCAN (acute kidney injury): Plan This is a 69 year old female w/ past medical history of Diabetes, MS, eosinophilic asthma who presented to the ED on 10/11 for weakness. #Weakness/MS Likely multi-factorial secondary to MS, deconditioning, UTI, and URI TSH mildly elevated, nonspecific given normal T4. Recommend rechecking outpatient in a month. CXR: negative Head CT: chronic white matter changes could reflext small vessel ischemic change and or demyelination from MS. Grossly unchanged Brain MRI: diffuse hyperintense T2 signals involving periventricular region, callososeptal interface & subcortical area not showing restricted diffusion. Findings suggestive of demyelinating disease MS. no interval change. Cervical spine MRI: several short segment plaques of spinal cord involving right anterior lateral colum @ C3/C4, left hemicord & right anterior cord @ C4/C5, left hemicord C6. Question subtle enhancement of C6 plaque concerning for active disease Thoracic spine MRI: small short segment plaques involving right shahbaz-cord @ T3, left hemicord T8, central cord T9/T10. No definitive enhancement to suggestive active disease. Discussed w/ neurology 10/12 - nothing concerning for active disease based on Dr. Hung's interpretation and also 2nd opinion from radiology. Patient may follow up outpatient. Was initially started on steroids but then discontinued on 10/12 due to no active MS. PT/OT consulted - recommending rehab. Patient to go to [facility]. #UTI/DUNCAN CBC/BMP stable day of discharge. Procal negative at time of admission. 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 Enalapril on hold @ time of discharge. Renal US 10/13 - negative UC growing pansensitive pseudomonas and klebsiella, switched to Cefepime 10/12, discharged on additional 7 days of Cipro to complete treatment for pseudomonas UTI. #intertrigo Wound nurse consulted - nystatin. clean folds gently, pat dry & dust w/ antifungal powder. Place sheets of Kaltostat into fold. #DM A1c 7.3% Continue metformin. #hypertension Patient w/ hypotension / (90/64) Pressures remain stable. Monitor closely outpatient medications on hold. -> continued to be held @ time of discharge. Recommend checking BP frequently while at [facility], patient may not require as high of a dose or any anti-hypertensive. Discharged to [facility] 10/15. Admission HPI Per Admitting Provider patient is a very pleasant 69-year-old female accompanied by her family. Acutely she comes because over the last 24 hours she has gotten weaker than her baseline to where she can really not transfer anymore. This is accompanied by upper respiratory symptoms, cough/congestion. Prior to that, however, she was still quite weak mobility very limited, generally seems to have been able to transfer and loosely take care of herself but not really get around well. This seems to have been a slow decline. She focuses on her legs being weak as the main part of it. She has not seen a neurologist/had active management for MS in quite some time. Incidentally she probably only drinks 20-30 ounces of fluid a day as well. Also incidentally she denies any new urinary symptoms/dysuria/frequency/urgency. Family notes that whenever she gets a respiratory infection she seems to get noticeably weaker. She also notes areas of her skin that "seep" Discharge Exam Constitutional WD/WN, vitals as above Eyes PERRL, conjunctivae normal, anicteric sclerae Respiratory normal respiratory effort, lungs clear to auscultation Cardiovascular RRR, no murmur, no edema Psychiatric A+Ox3, euthymic affect Discharge Plan Discharge Items Patient Disposition: Transfer Inpatient Rehab Fac Reason For Visit: WEAKNESS Discharge Diagnosis: UTI, weakness Activity: Resume your previous activity Non-emergency contact: Primary Care Provider Call non-emergency contact if: you have any medication questions and your symptoms worsen Follow-up/Referrals: Rhona Canales [Primary Care Provider] - Jay Harris MD [Physician] - Diet: Carb Consistent or DM2 Addtl Attending Provider Instructions: Mrs. Smyth, You were recently hospitalized for worsening weakness and were found to have a urinary tract infection. You were treated with antibiotics and your symptoms improved. Please see recommendations below regarding your discharge. Please take Ciprofloxacin twice daily for the next 7 days. Your first dose will be this evening, 10/15. Please take with food to avoid GI upset. Please continue to hold your blood pressure medication as you have had normal blood pressure here without it. They will continue to monitor this at [facility] and resume it if necessary. Please follow up with your PCP within 1-2 weeks of discharge. Please follow up with neurology for further care of your MS. If you develop any worsening symptoms including chest pain or shortness of breath please report back to the ED for further care. Sincerely, Rose Delgadillo PA-C Pending Studies at Discharge: No Stand-Alone Forms: My [facility] Skilled Items Patient informed of condition?: Yes DNR: No Discharge Level of Care: Acute rehab Communicable Disease: No Discharge Prognosis: Stable Lines: None Urinary Catheter: No Medications and DC Order Prescriptions: New ciprofloxacin HCl [Cipro] 500 mg tablet 500 mg PO BID Qty: 14 0RF Continued budesonide-formoterol 160-4.5 mcg/actuation HFA aerosol inhaler 2 puff inhalation BID Qty: 10.2 2RF levothyroxine 25 mcg tablet 25 mcg PO DAILYBB omeprazole 20 mg capsule,delayed release(DR/EC) 20 mg PO PM aspirin 81 mg Tablet,Delayed Release (Dr/Ec) 81 mg PO QAM Qty: 30 0RF atorvastatin 40 mg tablet 40 mg PO HS fluticasone propion-salmeterol 250-50 mcg/dose blister with device 1 inh INHALATION BID Rx Instructions: Unable to verify this medication with patient/caregiver at this date/time. Was able to verify that it was picked up by Pharmacy. Original Directions: 1 inhalation twice daily docusate sodium 100 mg capsule 100 mg PO PM PRN (Reason: Constipation) cholecalciferol (vitamin D3) 125 mcg (5,000 unit) tablet 5,000 unit PO QAM turmeric 400 mg Capsule 400 mg PO QAM Rx Instructions: Unable to verify strength of OTC medication with patient/caregiver at this date/time. albuterol sulfate 2.5 mg /3 mL (0.083 %) solution for nebulization 2.5 mg continuous nebulization DIRECTED PRN (Reason: Shortness Of Breath Or Wheezing) diclofenac potassium 50 mg tablet 50 mg PO TID PRN (Reason: Pain) vitamin B complex Tablet 1 tab PO DAILY nystatin [Klayesta] 100,000 unit/gram powder 1 applic TOPICAL BID Rx Instructions: under breast Centrum Adult 50 Plus 80 mcg Tablet,Chewable 1 tab PO DAILY bumetanide 1 mg tablet 0.5 mg PO DIRECTED PRN (Reason: .edema) metformin 1,000 mg tablet 1,000 mg PO BID Held benazepril 40 mg tablet 40 mg PO QAM Hold Instructions: Resume on 11/05/24. until BP elevates or seen by PCP No Action (DME) Power Wheelchair Device See Rx Instructions .Route Qty: 1 0RF Rx Instructions: As directed (DME) Aerochamber MV Spacer See Rx Instructions .ROUTE .MEDSUPPLY Qty: 1 0RF Rx Instructions: As directed Discharge Orders: Discharge Order (Routine); Ordered 10/15/24 Ordered By: Rose Christianson/Other Patient Handouts: Managing Type 2 Diabetes Admission Data Admit Date/Time: 10/10/24 14:13 Attending Provider: Antonia Norris Admit Provider: Armando Brush Primary Care Provider: Rhona Canales Other Providers: Armando Brush; IRB Approved Study,Danielle; [facility]; [facility]; [facility]; Edwin Hung Other Interventions: Discharge Summary Assessment (RN) Last Done: 10/15/24 12:17 Hospital Stay Data Consultations 10/10/24 13:20 ED Decision to Admit Stat 10/11/24 08:39 Consult Neurology Routine Diagnostic Imagining Performed 10/10/24 09:36 CT head/brain wo con Stat 10/10/24 14:13 MRI Brain [MR brain MS wo con] Routine 10/11/24 16:33 MR cervical spine wo/w con Routine MR thoracic spine wo/w con Routine 10/13/24 08:15 US Renal Bladder [US renal/blad retro comp] Routine Pending Results Patient Have Any Pending Studies at Discharge: No Discharge Instructions Given to Patient (Per Discharging Provider) Mrs. Smyth, You were recently hospitalized for worsening weakness and were found to have a urinary tract infection. You were treated with antibiotics and your symptoms improved. Please see recommendations below regarding your discharge. Please take Ciprofloxacin twice daily for the next 7 days. Your first dose will be this evening, 10/15. Please take with food to avoid GI upset. Please continue to hold your blood pressure medication as you have had normal blood pressure here without it. They will continue to monitor this at [facility] and resume it if necessary. Please follow up with your PCP within 1-2 weeks of discharge. Please follow up with neurology for further care of your MS. If you develop any worsening symptoms including chest pain or shortness of breath please report back to the ED for further care. Sincerely, Rose Delgadillo PA-C Total Time Total Time Spent Total Time Spent (In Minutes): 45 Total Time Includes: Examination of the Patient, Discharge Planning and Medication Reconciliation Coding Level of Care Code 03505 INP/OBS DISCH >30 MIN Diagnoses Weakness R53.1 Multiple sclerosis G35 Candidal intertrigo B37.2 URI (upper respiratory infection) J06.9 DUNCAN (acute kidney injury) N17.9
[2024-10-15] MEDS: MAGNESIUM SULFATE / D5W 1 GM/100 ML BAG IV ONE (12:07)
[2024-10-15] MEDS: MAGNESIUM OXIDE 400 MG TAB PO ONE (12:59)
== END 2024-10-15 15:47 | DRG 690 ==
LOC: ED 09:25 → 3N 14:13 → INTOOBSV 14:13 → SUATTDRO 14:13 → 3N 16:13

== ENCOUNTER 2025-01-13 20:08 | Inpatient (IN) ==
[2025-01-13 21:53] LABS: Hematocrit (blood only) 41.2 % (37.0-47.0); Hemoglobin 13.1 g/dl (12.0-16.0); Immature Granulocytes # (auto) 0.03 K/uL (0.01-0.20); Immature Granulocytes % (auto) 0.4 %; Mean Corpuscular Hemoglobin 29.8 pg (25.0-34.0); Mean Corpuscular Volume 93.8 fL (80.0-100.0); Platelet Count 150 K/uL (130-400); RDW Standard Deviation 58.2 fL (36.4-46.3); Red Blood Count 4.39 M/uL (4.20-5.40); White Blood Count 8.51 K/ul (4.8-10.8)
[2025-01-13 22:09] LABS: Alanine Aminotransferase 26.0 U/L (7-52); Albumin Globulin Ratio 1.1 (0.9-2); Alkaline Phosphatase 111.0 U/L (34-104); Anion Gap 15.0 (3-11); Bilirubin,Total 0.6 mg/dl (0.2-1.0); Blood Urea Nitrogen 22.0 mg/dl (6-23); Calcium 10.5 mg/dl (8.6-10.3); Carbon Dioxide 24.0 mmol/L (21-32); Chloride 106.0 mmol/L (98-107); Creatinine Clr Calc Pharmacy 39.0 ml/min; Globulin 3.7 gm/dl (2.5-4.0); Glucose 86.0 mg/dl (70-99(Fasting)); Potassium 4.8 mmol/L (3.5-5.1); Sodium 145.0 mmol/L (136-145); Total Protein 7.6 gm/dl (6.0-8.3)
[2025-01-13 22:24] LABS: Thyroid Stimulating Hormone 6.084 uIu/ml (0.300-4.500)
[2025-01-13 22:25] LABS: Influenza A virus by PCR Negative (Neg); Influenza B virus by PCR Negative (Neg); SARS CoV2 RNA(COVID-19) Ceph NEGATIVE (Negative)
--- NOTE | 2025-01-13 22:59 | Emergency Department Note ---
Impression & Plan Respiratory difficulty, Hypoxia, Elevated serum creatinine ED Provider Note Name: GARRICK HERNANDEZ Age: 69 Sex: Female Arrives Via: Ambulance Informant: Patient, EMS ED Provider: Uzair Cummings MD Chief Complaint: Shortness of breath Impression: As per impressions above Medical Decision Making: Pleasant 69-year-old female with history of MS arrives for evaluation of sudden onset worsening shortness of breath. In the setting of bilateral leg swelling For the last several days. She notes that she has a history of fluid overload and congestive failure and this feels similar. Examination she does sound like she has very wet lung sounds. Her chest x-ray is not overly concerning for fluid overload however given her initial examination it did seem that she was in congestive failure. Ordered Lasix. After further review of labs imaging and with discussion of hospitalist noted that the creatinine is now a bit elevated patient does appear a bit dry mucous membranes we will hold off on Lasix at this time. They have discussed with nursing. Patient also was noted to have slightly lower blood pressures on initial evaluation. Plan will be to bring in the hospital for further evaluation. It could just be that the patient has a mucous plugging and with her MS is having a bit of trouble clearing it however further workup and management by hospital service. Given other findings and examination I do not feel this is consistent with PE. In the setting of possible shellfish allergy and the creatinine being off I think it would be reasonable to hold off on a CT PE scan at this time nor would she need anticoagulation. triage/Nursing Notes reviewed by Me Differential:Reactive airway disease, pneumonia, pneumothorax, COPD, CHF, infections, cardiac ischemia, pulmonary embolism, musculoskeletal, gastrointestinal, as well as other pathologies. Vital Signs: reviewed and remarkable for hypoxia on RA Labs:ED labs Reviewed by me and remarkable for no significant abnormalities Imaging:X ray results are stated below per my interpretation: Chest: 1 view: No infiltrate, no effusion, normal cardiac border. EKG:As per my interpretation. Indication shortness of breath. Normal sinus rhythm at 98 bpm QTc of 459. There is no ectopy nor ischemia. Compared to EKG of October 10, 2024 no significant change. Cardiac/Tele Monitoring: Cardiac Monitoring: An Order was placed for continuous cardiac monitoring. The monitor shows a rate of 90 with a normal sinus rhythm. Consults:Dr Wili BERUMEN Hospitalist service discussed and will further evaluate Plan: Disposition:Hospitalization. Condition: Fair History of Present Illness: 69-year-old female arrives for evaluation of shortness of breath. Patient with a history of congestive failure previously and notes that for the last several days she has had increasing swelling in her legs and her hands. Notes some cramping in her legs and arms as well. This evening she was watching the fireworks when she became increasingly short of breath. States she could not catch her breath and thus called 911. Arrives to the ER somewhat hypoxic and placed on 2 L nasal cannula. She is feeling better after that. She does not feel her breathing is back to baseline though. Patient denies any active chest pain, syncope, fevers, chills, abdominal pain, back pain, urinary symptoms, calf pain, rashes or other concerning signs or symptoms. Nasal cannula prior to arrival no other interventions. Does note a history of asthma but states this is not like her asthma. Past Medical History:See Below Home Medications:See Below Allergies: Singulair, fish, shellfish, codeine Vitals:Blood Pressure: 103/63, Pulse 94, RR 24, T 36.6C, O2 96% on 2L NC Physical Exam: GENERAL: Patient is unwell appearing and in minimal distress. Mildly dry mucous membranes but audibly wet lung sounds RESPIRATORY: Moderately dyspneic when talking but otherwise comfortable at rest. Wet lung sounds with crackles throughout all lung collazo. CARDIOVASCULAR: Regular rate and rhythm.No murmur appreciated. GASTROINTESTINAL: Abdomen soft, non-tender, no peritonitis. EXTREMITIES: Normal motion all extremities, no cyanosis, moderate edema bilateral lower legs edema. NEUROLOGIC: Alert and oriented. No focal neurologic deficits appreciated though diffuse lower extremity weakness SKIN: No rash, no jaundice, no diaphoresis. PSYCH: Appropriate GCS: 15 ED Course: Times/Reassessments: stable and agreeable to staying in hospital Uzair Cummings MD Past Med/Surg History Problem List (Updated 01/14/25 @ 05:19 by Uzair Cummings MD) Elevated serum creatinine (Acute) Hypoxia (Acute) Respiratory difficulty (Acute) Candidal intertrigo (Acute) Weakness (Acute) Eosinophilic asthma Severe persistent allergic asthma Shortness of breath (Acute) Asthma exacerbation (Acute) Edema (Acute) Dyspnea on exertion History of UTI Thrush Yeast dermatitis (Acute) Generalized muscle weakness (Acute) Acute UTI (urinary tract infection) (Acute) Morbid obesity Ventral hernia Hypothyroidism Hypertension Hypomagnesemia (Acute) Diabetes Multiple sclerosis (Acute) UTI (urinary tract infection) (Acute) Abnormal finding on diagnostic imaging of left kidney Medical History Hypomagnesemia Hypothermia URI (upper respiratory infection) Hypomagnesemia Dyspnea Left-sided weakness DUNCAN (acute kidney injury) Brain TIA Acute respiratory failure with hypoxia Osteoarthritis of knees, bilateral Sinusitis, acute Morbid obesity with BMI of 50.0-59.9, adult Tachy-rowena syndrome GERD (gastroesophageal reflux disease) Hypothyroidism Pancreatitis Thrombocytopenia Peripheral edema Septic shock Hypomagnesemia Fungal dermatitis Asthma Hypertension Diabetes Influenza A Pneumonia Multiple sclerosis Surgical History H/O tubal ligation H/O sinus surgery History of arthroscopic knee surgery Hx of tonsillectomy H/O: hysterectomy No pertinent past surgical history Family History Other Family history non-contributory Social History Smoking Status: Never smoker Second Hand Exposure: No; Do You Dip or Chew Tobacco: No; Hx Alcohol Use: No Hx Substance Use: No Preferred Language: German Communication Ability: Effective Manager R D Required: No Beliefs That Will Affect Care: None marital status: Current Living Situation: Spouse and Family Current Living Situation Comment: Spouse and granddaughter How many Children do You have: 2 Feels Safe at Home: Yes Safety Concerns: Feels Safe At This Time Diet: gluten free during the past year weight has: decreased > 10 lbs Assistive Devices: Walker Allergies Allergies Allergy/AdvReac Type Severity Reaction Status Date / Time montelukast [From Singulair] Allergy Mild Unknown Verified 01/14/25 00:05 Fish Containing Products Allergy Unknown Unknown Verified 01/14/25 00:05 shellfish derived Allergy Unknown Verified 01/14/25 00:05 codeine AdvReac Mild NAUSEATED Verified 01/14/25 00:05 Home Meds Home Medications Medication Instructions Recorded Confirmed benazepril 40 mg tablet 40 mg PO QAM 06/25/21 01/14/25 levothyroxine 25 mcg tablet 25 mcg PO DAILYBB 06/25/21 01/14/25 omeprazole 20 mg capsule,delayed 20 mg PO PM 06/25/21 01/14/25 release atorvastatin 40 mg tablet 40 mg PO HS 07/20/23 01/14/25 docusate sodium 100 mg capsule 100 mg PO PM PRN Constipation 07/26/23 01/14/25 turmeric 400 mg capsule 400 mg PO QAM 07/26/23 01/14/25 albuterol sulfate 2.5 mg/3 mL 2.5 mg continuous nebulization 09/25/23 01/14/25 (0.083 %) solution for nebulization DIRECTED PRN Shortness Of Breath Or Wheezing diclofenac potassium 50 mg tablet 50 mg PO TID PRN Pain 09/25/23 01/14/25 vitamin B complex 1 tab PO DAILY 09/25/23 01/14/25 bumetanide 1 mg tablet 0.5 mg PO DIRECTED PRN .edema 12/01/23 01/14/25 multivitamin with minerals-folic 1 tab PO DAILY 12/01/23 01/14/25 acid 80 mcg chewable tablet (Centrum Adult 50 Plus) nystatin 100,000 unit/gram topical 1 applic topical BID 12/01/23 01/14/25 powder (Klayesta) metformin 1,000 mg tablet 1,000 mg PO BID 10/10/24 01/14/25 albuterol sulfate 90 mcg/actuation 2 puff inhalation Q4H PRN 01/14/25 01/14/25 aerosol inhaler Shortness Of Breath Or Wheezing ipratropium bromide 21 mcg (0.03 2 spray intranasal BID 01/14/25 01/14/25 %) nasal spray Previous Rx's Medication Instructions Recorded aspirin 81 mg tablet,delayed 81 mg PO QAM #30 tabs 08/16/21 release Wheelchair (Powered) (Power #1 ea 11/05/23 Wheelchair) budesonide-formoterol HFA 160 2 puff inhalation BID #10.2 grams 12/28/23 mcg-4.5 mcg/actuation aerosol inhaler inhalational spacing device #1 ea 12/28/23 (Aerochamber MV spacer) Results & Data (ED) Vital Signs Vital Signs - 24 hr 01/13/25 20:11 01/13/25 20:41 01/13/25 20:43 Temperature 36.6 C Temperature Source Oral Pulse Rate 82 94 H 93 H Pulse Rate [Apical] Pulse Rate [Right Finger] Pulse Rate from SpO2 Sensor Respiratory Rate 20 Respiratory Effort / Characteristics Non-Labored Respiratory Depth Normal Respiratory Pattern Blood Pressure 111/70 Blood Pressure [Right Arm] Blood Pressure Mean 83 Blood Pressure Mean [Right Arm] Blood Pressure Position [Right Arm] Pulse Oximetry 92 Oxygen Delivery Method Nasal Cannula Oxygen Flow Rate 2 Sepsis Recent Fever Within 48 Hours No Sepsis New/Unexplained Change in Mental Status No Sepsis Action Taken by Nursing No Action Required 01/13/25 20:45 01/13/25 20:45 01/13/25 20:54 Temperature 36.6 C Temperature Source Oral Pulse Rate 87 Pulse Rate [Apical] Pulse Rate [Right Finger] 97 H Pulse Rate from SpO2 Sensor 88 Respiratory Rate 18 19 Respiratory Effort / Characteristics Respiratory Depth Respiratory Pattern Blood Pressure Blood Pressure [Right Arm] 106/77 Blood Pressure Mean Blood Pressure Mean [Right Arm] 86 Blood Pressure Position [Right Arm] Pulse Oximetry 93 95 94 Oxygen Delivery Method Nasal Cannula Nasal Cannula Nasal Cannula Oxygen Flow Rate 3 3 2 Sepsis Recent Fever Within 48 Hours Sepsis New/Unexplained Change in Mental Status Sepsis Action Taken by Nursing 01/13/25 21:09 01/13/25 21:30 01/13/25 22:00 Temperature Temperature Source Pulse Rate 82 91 H 96 H Pulse Rate [Apical] Pulse Rate [Right Finger] Pulse Rate from SpO2 Sensor 85 91 H Respiratory Rate 19 21 19 Respiratory Effort / Characteristics Respiratory Depth Respiratory Pattern Blood Pressure 108/88 Blood Pressure [Right Arm] Blood Pressure Mean 97 Blood Pressure Mean [Right Arm] Blood Pressure Position [Right Arm] Pulse Oximetry 93 95 92 Oxygen Delivery Method Nasal Cannula Nasal Cannula Nasal Cannula Oxygen Flow Rate 2 2 2 Sepsis Recent Fever Within 48 Hours Sepsis New/Unexplained Change in Mental Status Sepsis Action Taken by Nursing 01/13/25 22:18 01/13/25 22:40 01/13/25 23:22 Temperature Temperature Source Pulse Rate 94 H Pulse Rate [Apical] 98 H Pulse Rate [Right Finger] Pulse Rate from SpO2 Sensor 95 H Respiratory Rate 24 20 Respiratory Effort / Characteristics Non-Labored Spontaneous Respiratory Depth Normal Respiratory Pattern Regular Blood Pressure Blood Pressure [Right Arm] 103/63 105/66 Blood Pressure Mean Blood Pressure Mean [Right Arm] 76 79 Blood Pressure Position [Right Arm] Lying Sitting Pulse Oximetry 96 93 Oxygen Delivery Method Nasal Cannula Nasal Cannula Oxygen Flow Rate 2 2 Sepsis Recent Fever Within 48 Hours Sepsis New/Unexplained Change in Mental Status Sepsis Action Taken by Nursing Laboratory Data 01/13/25 20:40 01/13/25 20:40 Lab Results 01/13/25 01/13/25 Range/Units 20:40 21:28 WBC 8.51 (4.8-10.8) K/ul RBC 4.39 (4.20-5.40) M/uL Hgb 13.1 (12.0-16.0) g/dl Hct 41.2 (37.0-47.0) % MCV 93.8 (80.0-100.0) fL MCH 29.8 (25.0-34.0) pg MCHC 31.8 L (32.0-36.0) g/dL RDW Std Deviation 58.2 H (36.4-46.3) fL RDW Coeff of Kaia 17.8 H (11.5-14.5) % Plt Count 150 (130-400) K/uL MPV 12.1 (9.4-12.4) fL Immature Gran % (Auto) 0.4 % Neut % (Auto) 75.3 % Lymph % (Auto) 16.3 % Luna % (Auto) 6.8 % Eos % (Auto) 1.1 % Baso % (Auto) 0.1 % Neut # (Auto) 6.41 (1.40-6.50) K/uL Lymph # (Auto) 1.39 (1.20-3.40) K/uL Luna # (Auto) 0.58 (0.11-0.59) K/uL Eos # (Auto) 0.09 (0.00-0.50) K/uL Baso # (Auto) 0.01 (0.00-0.20) K/uL Immature Gran # (Auto) 0.03 (0.01-0.20) K/uL Sodium 145 (136-145) mmol/L Potassium 4.8 (3.5-5.1) mmol/L Chloride 106 (98-107) mmol/L Carbon Dioxide 24 (21-32) mmol/L Anion Gap 15 H (3-11) BUN 22 (6-23) mg/dl Creatinine 1.51 H (0.6-1.2) mg/dl Est Cr Clr Drug Dosing 39.0 ml/min eGFR 36.96 BUN/Creatinine Ratio 14.6 (10-20) Glucose 86 (70-99(Fasting)) mg/dl Calcium 10.5 H (8.6-10.3) mg/dl Magnesium 1.4 L (1.7-2.4) mg/dl Total Bilirubin 0.6 (0.2-1.0) mg/dl AST 33 (13-39) U/L ALT 26 (7-52) U/L Alkaline Phosphatase 111 H (34-104) U/L B-Natriuretic Peptide 28 (0-100) pg/ml Total Protein 7.6 (6.0-8.3) gm/dl Albumin 3.9 (3.4-5.0) gm/dl Globulin 3.7 (2.5-4.0) gm/dl Albumin/Globulin Ratio 1.1 (0.9-2) TSH 6.084 H (0.300-4.500) uIu/ml Free T4 0.90 (0.61-1.60) ng/dl SARS-CoV-2 (PCR) NEGATIVE (Negative) Influenza Type A (PCR) Negative (Neg) Influenza Type B (PCR) Negative (Neg) RSV (RT-PCR) Negative (Neg) Administered Medications Lactated Ringer's (Lr) 1,000 mls @ 125 mls/hr IV .Q8H [facility] Stop: 01/14/25 07:44 Last Admin: 01/14/25 00:26 Dose: 125 mls/hr Documented By: Discontinued Medications Furosemide (Furosemide 40 Mg/4 Ml Vial) 40 mg IV ONE ONE Stop: 01/13/25 22:57 Last Admin: 01/14/25 00:15 Dose: Not Given Documented By: Magnesium Sulfate/Dextrose (Magnesium Sulfate / D5w) 1 gm in 100 mls @ 50 mls/hr IV Q2H [facility] Stop: 01/14/25 03:44 Last Infusion: 01/14/25 04:20 Dose: Infused Documented By: Admin: 01/14/25 02:30 Dose: 50 mls/hr Documented By: Infusion: 01/14/25 02:29 Dose: Infused Documented By: Admin: 01/14/25 00:27 Dose: 50 mls/hr Documented By: Methylprednisolone (Methylprednisolone 125 Mg/2 Ml Vial) 40 mg IV NOW STA Stop: 01/14/25 00:00 Last Admin: 01/14/25 00:24 Dose: 40 mg Documented By: Imaging Data Radiologist's Impression: Chest X-Ray 01/13/25 21:21 Exam(s): XR CXR 1 VIEW EXAM: XR Chest, 1 View CLINICAL HISTORY: Reason for exam: weakness. TECHNIQUE: Frontal view of the chest. COMPARISON: 10/10/2024 FINDINGS: Lungs: Soft tissue artifact of the lung bases due to large body habitus and portable technique. A small amount of left basilar atelectasis or infiltrate can not be excluded. Pleural space: Unremarkable. No pneumothorax. Heart: Unremarkable. No cardiomegaly. Mediastinum: Unremarkable. Normal mediastinal contour. Bones/joints: Unremarkable. No acute fracture. Vasculature: Mild to moderate calcification of the aortic arch. Upper abdomen: Unremarkable as visualized. No pneumoperitoneum under the diaphragm. IMPRESSION: Soft tissue artifact of the lung bases due to large body habitus and portable technique. A small amount of left basilar atelectasis or infiltrate can not be excluded. Electronically signed by: Edi Butterfield MD 01/14/25 00:57 AM Discharge Plan Visit Data Chief Complaint: Weakness Stated Complaint: Weakness, Congesion, Swelling in Extremities ED Provider: Uzair Cummings Discharge Problem: Respiratory difficulty, Hypoxia, Elevated serum creatinine Patient Disposition: Admitted As Inpatient Condition: Fair Discharge Instructions Interventions: ED Discharge Assessment Last Done: 01/14/25 01:30
--- NOTE | 2025-01-13 23:14 | History & Physical Report ---
Date of Service January 13, 2025 Assessment & Plan (1) Acute respiratory failure with hypoxia: Plan: Acute hypoxic respiratory failure Last echo 11/2023: LVEF 65-70%. No wall motion abnormalities noted. Normal PA/RA pressures. Chest x-ray: No overt volume overload, appears similar to prior. BNP is not elevated DDx includes asthma exacerbation, OHS, volume overload No JVD, clear breath sounds on auscultation, normal BNP, slightly dry periods and some hypotension --> will defer Lasix on admission. Medically appears slightly dry Has some scattered wheezing on admitting assessment. ?Mild asthma exacerbation. She does not have pleuritic pain/inspiratory pain and heart rate is low 80s/90s. BNP is not elevated suggest heart strain. If not progressing --> f/u CTA-chest Asthma, history of asthmatic bronchitis With some slight wheezing on admission Continue Advair Prednisone 40 mg daily ordered for hypoxia with some wheezing and restricted air movement Magnesium 1.4, IV x 2 g followed by oral repletion ordered DuoNebs as needed History of lower extremity venous stasis, Has been on Bumex outpatient. No diastolic dysfunction or reduced EF noted on echo Bed weight 110 kg. Most recent dry weight around 105 kg, although appears to fluctuate around [id number] regularly. Daily standing weights Venous stasis mobilization strategies. Elevate legs for least 20 minutes 3 times daily. SCDs to the knees. Diuresis deferred. Gentle supplementation of fluids given for DUNCAN as noted DUNCAN Baseline creatinine around 1 Creatinine 1.51 on admission Clinically appears slightly contracted, jugular veins flat, sodium/potassium/chloride upper limits of normal, and DUNCAN and mucous membranes are tacky/dry. Supplemental fluids are given as noted Oral fluids encouraged, trend BMP daily ? NSVT versus ectopy 46 beats of tachycardia with morphology and slightly, QRS? NSVT versus ectopy. Asymptomatic with this. Denies chest pain/chest pressure Echo pending Monitor on telemetry Magnesium repleted, low-dose beta-shaina started Type II DM Metformin held Basal bolus insulin while admitted Goal BSG [id number] Glucose checks AC/at bedtime Hypertension ARB held for mild DUNCAN and borderline low BP DVT prophylaxis: Lovenox. Switch to heparin subcu if creatinine clearance less than 30 Diet: Type II DM, heart healthy Disposition: PCU CODE STATUS: Full code (2) Severe persistent allergic asthma: (3) Morbid obesity: (4) Hypothyroidism: (5) Hypertension: (6) Hypomagnesemia: (7) Diabetes: (8) Multiple sclerosis: History of Present Illness Primary Care Provider: Rhona Linares Ally Mcnally is a 69-year-old female with past medical history of weakness due to MS and deconditioning, type II DM, hypertension discharged from hospital 10/15/2024, was noted to have extensive foci of demyelination throughout the brain and spinal cord although no active spinal lesions on contrasted study to indicate recent/acute disease. At that time she declined DMT, had a negative NMO antibody and was following with neurology as an outpatient. She presented to the emergency department and was referred for admission after she had increasing swelling in her legs and hands, shortness of breath, and was found to be hypoxic requiring 2 L in the ER. She does have a past history of congestive heart failure. BNP is not elevated, Quad screen is normal. She does not have a leukocytosis and is not febrile on admission. He has borderline hypotension. She is recommended for admission for acute hypoxic respiratory failure due to suspected volume overload. Dali seen at the bedside. She reports that she was referred to the ER from family who are concerned that she looked like she was having trouble breathing. Send reports she has had a history of leg swelling, she feels her legs are relatively normal for her right now. She does report that she chronically gets short of breath when laying flat she does not think this is changed. She does have some gurgling and a cough productive for thick whitish sputum. She denies fever chills or sweats. She denies chest pain. She is not she feels short of breath laying in bed. She is thirsty. She does not think that she has gained weight. She does not feel lightheaded or dizzy. She does not think her wheezing is any more or less than normal, she endorses a little bit of wheezing when breathing but does not feel like she is having an asthma exacerbation. Took medications this morning. She denies pleuritic pain/inspiratory pain. Denies leg swelling and calf pain. Denies dysuria/polyuria Medical History: Reviewed Medications: Reviewed Surgical History: Reviewed Family history: Reviewed Allergies: Reviewed Social History: REviewed Code Status: Full Code Allergies Allergy/AdvReac Type Severity Reaction Status Date / Time montelukast [From [facility]] Allergy Mild Unknown Verified 11/09/24 14:04 Fish Containing Products Allergy Unknown Unknown Verified 11/09/24 14:04 shellfish derived Allergy Unknown Verified 11/09/24 14:04 codeine AdvReac Mild NAUSEATED Verified 11/09/24 14:04 Home Medications Medication Instructions Recorded Confirmed Type benazepril 40 mg tablet 40 mg PO QAM 06/25/21 11/09/24 History levothyroxine 25 mcg tablet 25 mcg PO DAILYBB 06/25/21 11/09/24 History omeprazole 20 mg capsule,delayed 20 mg PO PM 06/25/21 11/09/24 History release aspirin 81 mg tablet,delayed 81 mg PO QAM #30 tabs 08/16/21 11/09/24 Rx release atorvastatin 40 mg tablet 40 mg PO HS 07/20/23 11/09/24 History fluticasone 250 mcg-salmeterol 50 1 inh inhalation BID 07/20/23 11/09/24 History mcg/dose blistr powdr for inhalation cholecalciferol (vitamin D3) 125 5,000 unit PO QAM 07/26/23 11/09/24 History mcg (5,000 unit) tablet docusate sodium 100 mg capsule 100 mg PO PM PRN Constipation 07/26/23 11/09/24 History turmeric 400 mg capsule 400 mg PO QAM 07/26/23 11/09/24 History albuterol sulfate 2.5 mg/3 mL 2.5 mg continuous nebulization 09/25/23 5 History (0.083 %) solution for nebulization DIRECTED PRN Shortness Of Breath Or Wheezing diclofenac potassium 50 mg tablet 50 mg PO TID PRN Pain 09/25/23 11/09/24 History vitamin B complex 1 tab PO DAILY 09/25/23 11/09/24 History Wheelchair (Powered) (Power #1 ea 11/05/23 11/09/24 Rx Wheelchair) bumetanide 1 mg tablet 0.5 mg PO DIRECTED PRN .edema 12/01/23 11/09/24 Histo ry multivitamin with minerals-folic 1 tab PO DAILY 12/01/23 11/09/24 History acid 80 mcg chewable tablet (Centrum Adult 50 Plus) nystatin 100,000 unit/gram topical 1 applic topical BID 05/20/24 04/29/25 History powder (Klayesta) budesonide-formoterol HFA 160 2 puff inhalation BID #10.2 grams 12/28/23 11/09/24 Rx mcg-4.5 mcg/actuation aerosol inhaler inhalational spacing device #1 ea 12/28/23 11/09/24 Rx (Aerochamber MV spacer) metformin 1,000 mg tablet 1,000 mg PO BID 10/10/24 11/09/24 History ciprofloxacin HCl 500 mg tablet 500 mg PO BID #14 tabs 10/15/24 11/09/24 Rx (Cipro) Past Med/Surg History Problem List (Updated 11/15/24 @ 00:07 by Jose Eduardo Proctor) Candidal intertrigo (Acute) Weakness (Acute) Eosinophilic asthma Severe persistent allergic asthma Shortness of breath (Acute) Asthma exacerbation (Acute) Edema (Acute) Dyspnea on exertion History of UTI Thrush Yeast dermatitis (Acute) Generalized muscle weakness (Acute) Acute UTI (urinary tract infection) (Acute) Morbid obesity Ventral hernia Hypothyroidism Hypertension Hypomagnesemia (Acute) Diabetes Multiple sclerosis (Acute) UTI (urinary tract infection) (Acute) Abnormal finding on diagnostic imaging of left kidney Medical History Hypomagnesemia Hypothermia URI (upper respiratory infection) Hypomagnesemia Dyspnea Left-sided weakness DUNCAN (acute kidney injury) Brain TIA Acute respiratory failure with hypoxia Osteoarthritis of knees, bilateral Sinusitis, acute Morbid obesity with BMI of 50.0-59.9, adult Tachy-rowena syndrome GERD (gastroesophageal reflux disease) Hypothyroidism Pancreatitis Thrombocytopenia Peripheral edema Septic shock Hypomagnesemia Fungal dermatitis Asthma Hypertension Diabetes Influenza A Pneumonia Multiple sclerosis Surgical History H/O tubal ligation H/O sinus surgery History of arthroscopic knee surgery Hx of tonsillectomy H/O: hysterectomy No pertinent past surgical history Family History Other Family history non-contributory Social History Smoking Status: Never smoker Second Hand Exposure: No; Do You Dip or Chew Tobacco: No; Hx Alcohol Use: No Hx Substance Use: No Preferred Language: Chinese Communication Ability: Effective Layout Designer Required: No Beliefs That Will Affect Care: None marital status: Current Living Situation: Spouse and Family Current Living Situation Comment: Spouse and granddaughter How many Children do You have: 2 Feels Safe at Home: Yes Diet: gluten free during the past year weight has: decreased > 10 lbs Assistive Devices: Nebulizer and Wheelchair Physical Exam Physical Exam: General: A&Ox3. NAD. Cooperative. HEENT: Atraumatic, normocephalic. Vision and hearing grossly intact Pulm: Patient with some coarse breath sounds mostly coming from upper airway, on cough these clear. On inspiration she has trace inspiratory squeaks/high- pitched wheezes in the bases, no rales/crackles are appreciated. On admitting exam Cardiac: RRR, -mrg. Radial pulses intact and symmetrical. No JVD Abdominal: Obese nontender, nondistended, soft. BS present. Extremities: No pitting edema Results & Data Results & Data Vital Signs (Past 12 Hours) Vital Signs Temp Pulse Pulse Resp BP BP Pulse Ox 01/13/25 22:40 103/63 01/13/25 22:18 94 H 24 96 01/13/25 22:00 96 H 19 108/88 92 01/13/25 21:30 91 H 21 95 01/13/25 21:09 82 19 93 01/13/25 20:54 87 19 94 01/13/25 20:45 36.6 C 97 H 18 106/77 95 01/13/25 20:45 93 01/13/25 20:43 93 H 01/13/25 20:41 94 H 01/13/25 20:11 36.6 C 82 20 111/70 92 O2 Del Method O2 Flow Rate 01/13/25 22:40 01/13/25 22:18 Nasal Cannula 2 01/13/25 22:00 Nasal Cannula 2 01/13/25 21:30 Nasal Cannula 2 01/13/25 21:09 Nasal Cannula 2 01/13/25 20:54 Nasal Cannula 2 01/13/25 20:45 Nasal Cannula 3 01/13/25 20:45 Nasal Cannula 3 01/13/25 20:43 01/13/25 20:41 01/13/25 20:11 Nasal Cannula 2 PG Care Time/CCT Total # of Minutes Spent Total Time Spent with Patient: Total time spent is greater than 50% in coordination of care (as documented) at patient's floor/unit and/or counseling patient: Coding Level of Care Code 28573 INT INP/OBS CARE 3/75MIN Diagnoses Acute respiratory failure with hypoxia J96.01 Severe persistent allergic asthma J45.50 Morbid obesity E66.01 Hypothyroidism E03.9 Hypertension I10 Hypomagnesemia E83.42 Diabetes E11.9 Multiple sclerosis G35
[2025-01-13 23:40] LABS: Magnesium 1.4 mg/dl (1.7-2.4)
[2025-01-13] MEDS ORDERED: GLUCOSE 10 TAB/TUBE PO PRN (23:44)
[2025-01-13] MEDS ORDERED: GLUCAGON FOR INJ 1 MG VIAL SQ PRN (23:44)
[2025-01-13] MEDS ORDERED: GLUCOSE 40% GEL 15 GM TUBE PO PRN (23:44)
[2025-01-13] MEDS ORDERED: CARBOHYDRATES FOR HYPOGLYCEMIA PO PRN (23:44)
[2025-01-13] MEDS ORDERED: DEXTROSE 50% 50 ML SYRINGE IV PRN (23:44)
[2025-01-14] MEDS: FUROSEMIDE 40 MG/4 ML VIAL IV ONE (00:15)
[2025-01-14] MEDS: LACTATED RINGER'S 1,000 ML IV SCH ×2 (00:26→15:29)
[2025-01-14] MEDS: MAGNESIUM SULFATE / D5W 1 GM/100 ML BAG IV SCH (00:27)
--- NOTE | 2025-01-14 00:58 | XRay Report ---
Exam(s): XR CXR 1 VIEW EXAM: XR Chest, 1 View CLINICAL HISTORY: Reason for exam: weakness. TECHNIQUE: Frontal view of the chest. COMPARISON: 10/10/2024 FINDINGS: Lungs: Soft tissue artifact of the lung bases due to large body habitus and portable technique. A small amount of left basilar atelectasis or infiltrate can not be excluded. Pleural space: Unremarkable. No pneumothorax. Heart: Unremarkable. No cardiomegaly. Mediastinum: Unremarkable. Normal mediastinal contour. Bones/joints: Unremarkable. No acute fracture. Vasculature: Mild to moderate calcification of the aortic arch. Upper abdomen: Unremarkable as visualized. No pneumoperitoneum under the diaphragm. IMPRESSION: Soft tissue artifact of the lung bases due to large body habitus and portable technique. A small amount of left basilar atelectasis or infiltrate can not be excluded. Electronically signed by: Edi Butterfield MD 01/14/25 00:57 AM
[2025-01-14] MEDS ORDERED: ACETAMINOPHEN 325 MG TAB PO PRN (01:54)
[2025-01-14] MEDS: LEVOTHYROXINE SODIUM 25 MCG TABLET PO SCH (06:07)
[2025-01-14 06:25] LABS: Hematocrit (blood only) 37.5 % (37.0-47.0); Hemoglobin 12.4 g/dl (12.0-16.0); Immature Granulocytes # (auto) 0.04 K/uL (0.01-0.20); Immature Granulocytes % (auto) 0.4 %; Mean Corpuscular Hemoglobin 31.0 pg (25.0-34.0); Mean Corpuscular Volume 93.8 fL (80.0-100.0); Platelet Count 134 K/uL (130-400); RDW Standard Deviation 57.9 fL (36.4-46.3); Red Blood Count 4.00 M/uL (4.20-5.40); White Blood Count 10.24 K/ul (4.8-10.8)
[2025-01-14 07:02] LABS: Anion Gap 9.0 (3-11); Blood Urea Nitrogen 26.0 mg/dl (6-23); Calcium 9.7 mg/dl (8.6-10.3); Carbon Dioxide 26.0 mmol/L (21-32); Chloride 107.0 mmol/L (98-107); Creatinine Clr Calc Pharmacy 42.4 ml/min; Glucose 161.0 mg/dl (70-99(Fasting)); Potassium 4.3 mmol/L (3.5-5.1); Sodium 142.0 mmol/L (136-145)
[2025-01-14] MEDS: INSULIN ASPART PER UNIT CHARGE SC SCH (08:03)
[2025-01-14] MEDS: METOPROLOL TARTRATE 25 MG TAB PO SCH (08:04)
[2025-01-14] MEDS: MAGNESIUM OXIDE 400 MG TAB PO SCH (08:04)
[2025-01-14] MEDS: VITAMIN B COMPLEX TAB PO SCH (08:04)
[2025-01-14] MEDS: ENOXAPARIN INJ 40 MG/0.4 ML SYR SQ SCH (08:04)
[2025-01-14] MEDS: ASPIRIN 81 MG ECTAB PO SCH (08:05)
[2025-01-14] MEDS: CHOLECALCIFEROL 125 MCG (5,000 UNITS) TAB PO SCH (08:05)
[2025-01-14] MEDS: FLUTICASONE/VILANTEROL 200/25MCG 14 PUFFS/INHALER INH SCH (08:05)
--- NOTE | 2025-01-14 08:09 | XRay Report ---
HISTORY: Hypoxia TECHNIQUE: Portable AP radiograph of the chest. COMPARISON: Chest radiograph dated 10/10/2024. FINDINGS: Mild left basilar/retrocardiac opacity. Clear right lung. No pneumothorax or definite effusion. Mild cardiomegaly. Left-sided aortic arch containing atherosclerotic calcification.No acute osseous abnormality. Included upper abdomen is unremarkable. IMPRESSION: * Mild left basilar airspace opacity may represent atelectasisor pneumonia. * Clear right lung. * Mild cardiomegaly. Electronically signed by Jay Avila 01-14-2025 08:08 AM
[2025-01-14 08:34] LABS: Magnesium 1.9 mg/dl (1.7-2.4)
--- NOTE | 2025-01-14 10:25 | Hospitalist Progress Note ---
Date of Service January 14, 2025 Assessment & Plan (1) Hypoxia: Tito Mcnally is a 69 Y O Female with PMH of weakness due to MS and deconditioning. type II DM, Hypertension presented to ER with shortness of breath and increased swelling in her hands and legs. She was hypoxic in the ER requiring 2l of O2. She was admitted for acute hypoxic respiratory failure. #Acute hypoxic Respiratory Failure #Acute asthma exacerbation - Last echo 11/2023: LVEF 65-70%. No wall motion abnormalities - Chest Xray with no volume overload -Clinical improvement with IV Methylprednisone -Will continue same course today -Continue Advair -Duoneb PRN #Lower extremity venous stasis -Bumex in the outpatient - Venous stasis mobilization strategies. Elevate legs for least 20 minutes 3 times daily. SCDs to the knees. #DUNCAN -Creatinine 1.51 -Monitor BMP in the AM #NSVT versus ectopy -Patient currently asymptomatic -Started on low dose beta shaina -Pending ECHO -On telemetry -Magnesium: 1.9 Type II DM Metformin held Basal bolus insulin while admitted Goal BSG 465019 Glucose checks AC/at bedtime Hypertension ARB held for mild DUNCAN and borderline low BP DVT prophylaxis: Lovenox. Switch to heparin subcu if creatinine clearance less than 30 Diet: Type II DM, heart healthy Code: Full Admission and Anticipated Discharge Date Admission Date: January 13, 2025 Supervising Physician Co-Signing Physician Notes I personally examined the patient and verified all ray points of history and exam, discussed case, and agree with decision making with Dr Hill Breathing feels better than yesterday but still lousy. Coughing up a lot of white sputum. Nursing notes poor urine output not that great a p.o. intake. Son present at the bedside. Answered all questions to the best my ability and to their satisfaction. Vitals noted, in general she is awake and alert fatigued appears mildly short of breath. Lungs show coarse wet sounding mucousy rhonchi throughout but it is symmetric moderate air entry no asymmetric findings. Labs and diagnostics noted. Dyspnea/hypoxiaagree with admitting team asthma flare appears to be the most likely. Continue with serial exams, but I suspect to the questionable left lower lobe infiltrate on her chest x-ray is really overlapping shadows between heart shadow in chest wallgiven that she does not show lab or vital findings consistent with a pneumonia and her lung exam is symmetric. She is feeling better a little, but not a lothopefully [id number] nebs will help her feel better faster, increase steroids to twice daily. Continue to follow closely. Give IV fluids given that she still appears dehydrated. Subjective Continues to be on 2l o2. Patient mentioned she is feeling a lot better than yesterday. Improved shortness of breath and cough compared to yesterday Review of Systems Review of Systems: As per HPI Physical Exam Physical Exam: General: A&Ox3. NAD. Cooperative. HEENT: Atraumatic, normocephalic. Vision and hearing grossly intact Pulm: Wheeze in bases; No crackles/rales Cardiac: RRR, -mrg. Radial pulses intact and symmetrical. No JVD Abdominal: Obese nontender, nondistended, soft. BS present. Extremities: No pitting edema Results & Data Results & Data Vital Signs (Past 12 Hours) Vital Signs Temp Pulse Pulse Pulse Resp BP BP 01/14/25 08:01 36.7 C 100 H 20 101/67 01/14/25 02:49 36.4 C L 91 H 18 126/67 01/14/25 02:05 01/14/25 01:57 36.4 C L 91 H 20 134/67 01/14/25 01:56 01/14/25 01:35 36.4 C L 91 H 18 134/67 01/14/25 01:30 01/14/25 01:00 91/55 L 01/14/25 00:54 85 20 01/14/25 00:37 93 H 01/14/25 00:09 97 H 22 01/14/25 00:00 103/46 L 01/13/25 23:22 98 H 20 105/66 01/13/25 22:40 103/63 01/13/25 22:18 94 H 24 01/13/25 22:00 96 H 19 108/88 01/13/25 21:30 91 H 21 01/13/25 21:09 82 19 01/13/25 20:54 87 19 01/13/25 20:45 36.6 C 97 H 18 106/77 01/13/25 20:45 01/13/25 20:43 93 H 01/13/25 20:41 94 H Pulse Ox Pulse Ox O2 Del Method O2 Del Method O2 Flow Rate O2 Flow Rate 01/14/25 08:01 98 Nasal Cannula 2 01/14/25 02:49 97 Nasal Cannula 2 01/14/25 02:05 Nasal Cannula 2 01/14/25 01:57 98 Nasal Cannula 2 01/14/25 01:56 98 Nasal Cannula 2 01/14/25 01:35 99 Nasal Cannula 2 01/14/25 01:30 Nasal Cannula 2 01/14/25 01:00 01/14/25 00:54 94 Nasal Cannula 2 01/14/25 00:37 01/14/25 00:09 95 Nasal Cannula 2 01/14/25 00:00 01/13/25 23:22 93 Nasal Cannula 2 01/13/25 22:40 01/13/25 22:18 96 Nasal Cannula 2 01/13/25 22:00 92 Nasal Cannula 2 01/13/25 21:30 95 Nasal Cannula 2 01/13/25 21:09 93 Nasal Cannula 2 01/13/25 20:54 94 Nasal Cannula 2 01/13/25 20:45 95 Nasal Cannula 3 01/13/25 20:45 93 Nasal Cannula 3 01/13/25 20:43 01/13/25 20:41
[2025-01-14] MEDS ORDERED: NYSTATIN POWDER 15GM BTL EXT PRN (10:45)
[2025-01-14] MEDS: NYSTATIN POWDER 15GM BTL EXT SCH (10:52)
--- NOTE | 2025-01-14 14:46 | XCELERA ---
[id number] [id number]
[2025-01-14] MEDS: ALBUT/IPRATROP 3MG/0.5MG NEB 3 ML VIAL NEB SCH (15:16)
--- NOTE | 2025-01-14 15:21 | Billing Data ---
Date of Service January 14, 2025 Coding Level of Care Code 20089 SUB INP/OBS CARE
--- NOTE | 2025-01-14 15:21 | Billing Data ---
Date of Service January 14, 2025 Coding Level of Care Code 46682 SUB INP/OBS CARE
[2025-01-14] MEDS: ATORVASTATIN 40 MG TAB PO SCH (20:27)
--- NOTE | 2025-01-15 07:14 | Hospitalist Progress Note ---
Date of Service January 15, 2025 Assessment & Plan (1) Acute respiratory failure with hypoxia: (2) Asthma exacerbation: Plan Dali is a 69 Y O Female with PMH of weakness due to MS and deconditioning. type II DM, Hypertension presented to ER with shortness of breath and increased swelling in her hands and legs. She was hypoxic in the ER requiring 2l of O2. She was admitted for acute hypoxic respiratory failure, continues to require admission for IV steroids and monitoring of her vital signs and heart rhythm. #Acute hypoxic Respiratory Failure #Acute asthma exacerbation - Last echo 11/2023: LVEF 65-70%. No wall motion abnormalities Echo 01/14/25 showing LVEF>70%, small LV cavity size, mild concentric LVH; normal RV size and function, no significant valvular pathology - Chest Xray with no volume overload -Continue IV methylpred for asthma exacerbation, depending on lung exam in early afternoon will either keep BID or just keep the AM dose Plan to switch to PO prednisone tomorrow 01/16/25 -Continue Advair as prescribed -Duoneb PRN #DUNCAN -Creatinine 1.51 -> 1.35 - continuing to encourage good PO fluid and food intake - AM BMP #Lower extremity venous stasis -Bumex outpatient, holding while inpatient rodrick while hypotensive and with creatinine elevation continue Venous stasis mobilization strategies. Elevate legs for least 20 minutes 3 times daily. SCDs to the knees. #NSVT versus ectopy - currently asymptomatic - Started on low dose beta shaina metop tartrate 12.5mg BID, currently held for bradycardia and hypotension -continue tele monitoring, pt was rowena overnight down to upper 30s -Magnesium: 1.8 -> given 2 bags mag sulfate Type II DM Metformin held Basal bolus insulin while admitted Goal BSG [id number] Glucose checks AC/at bedtime Hypertension ARB held for mild DUNCAN and low BP - newly added metop also held for low BP and rowena DVT prophylaxis: Lovenox. Switch to heparin subcu if creatinine clearance less than 30 Diet: Type II DM, heart healthy Code: Full Admission and Anticipated Discharge Date Admission Date: January 13, 2025 Supervising Physician Co-Signing Physician Notes I personally examined the patient and verified all ray points of history and exam, discussed case, and agree with decision making with Dr Hernandez feeling better breathing better. overall improving. feeling better overall. Vitals noted, in general she is awake and alert fatigued appears mildly short of breath. Lungs show coarse wet sounding mucousy rhonchi throughout but it is symmetric moderate air entry no asymmetric findings. Labs and diagnostics noted. Dyspnea/hypoxiaagree with admitting team asthma flare appears to be the most likely. doing better ovreall. continue nebs and steroids, hopefully home soon bradycardia - stopped metoprolol. mostly sinus, mobitz 1, occassional dropped beat but not when rowena - follow - may need outpt monitoring DVT proph - lovenox otherwise as above Subjective Dali was seen and evaluated at bedside, endorses continuing to feel better than the day prior with less SOB and wheezing. Currently on room air saturating mid-90s, still coughing intermittently with thick white-yellow sputum. States she is still feeling quite weak, wondering if she could get a new "lift chair" - device that helps get her from couch up to her walker. Otherwise feels she has good support at home 2 family members and 2 nurses that come in for a few hours at a time on different days. Review of Systems Review of Systems: As per HPI Physical Exam Physical Exam: General: A&Ox3. NAD, continues to be cooperative HEENT: NC/AT, EOM intact, anicteric sclerae CV: RRR, +s1/s2, no m/r/g. Radial pulses intact and symmetrical. No JVD Resp: scattered wheeze b/l, wet rales and rhonchi in inferior lung collazo, otherwise good air movement b/l GI/Abd: Normoactive BS, abdomen soft, nondistended, nontender to palpation Extremities: 1+ pitting edema in b/l LE Neuro: no facial droop, speech intact, moves all extremities Results & Data Results & Data Vital Signs (Past 12 Hours) Vital Signs Temp Pulse Pulse Resp BP BP Pulse Ox 01/15/25 06:11 56 L 01/15/25 05:26 52 L 18 99/65 L 93 01/15/25 05:22 47 L 18 90/52 L 91 01/15/25 04:49 36.6 C 50 L 91/57 L 94 01/15/25 01:20 92 01/14/25 22:57 62 97/61 L 01/14/25 21:55 52 L 01/14/25 20:00 01/14/25 19:47 72 18 92 O2 Del Method O2 Flow Rate 01/15/25 06:11 01/15/25 05:26 Room Air 01/15/25 05:22 Room Air 01/15/25 04:49 Room Air 01/15/25 01:20 Room Air 01/14/25 22:57 01/14/25 21:55 01/14/25 20:00 Nasal Cannula 2 01/14/25 19:47 Room Air Resident Activity Tracking Resident Involvement: Resident Care Provided Care Provided: Adult Hospital Medicine (2) Asthma exacerbation Asthma persistence: persistent Asthma severity: unspecified severity Qualified Code(s): J45.901 - Unspecified asthma with (acute) exacerbation
[2025-01-15 07:54] LABS: Hematocrit (blood only) 33.4 % (37.0-47.0); Hemoglobin 11.0 g/dl (12.0-16.0); Immature Granulocytes # (auto) 0.06 K/uL (0.01-0.20); Immature Granulocytes % (auto) 0.5 %; Mean Corpuscular Hemoglobin 30.6 pg (25.0-34.0); Mean Corpuscular Volume 93.0 fL (80.0-100.0); Platelet Count 131 K/uL (130-400); RDW Standard Deviation 57.1 fL (36.4-46.3); Red Blood Count 3.59 M/uL (4.20-5.40); White Blood Count 12.53 K/ul (4.8-10.8)
[2025-01-15 08:09] LABS: Anion Gap 6.0 (3-11); Blood Urea Nitrogen 31.0 mg/dl (6-23); Calcium 9.8 mg/dl (8.6-10.3); Carbon Dioxide 29.0 mmol/L (21-32); Chloride 108.0 mmol/L (98-107); Creatinine Clr Calc Pharmacy 43.5 ml/min; Glucose 134.0 mg/dl (70-99(Fasting)); Magnesium 1.8 mg/dl (1.7-2.4); Potassium 4.3 mmol/L (3.5-5.1); Sodium 143.0 mmol/L (136-145)
[2025-01-15] MEDS: MAGNESIUM SULFATE / D5W 1 GM/100 ML BAG IV SCH (11:29)
--- NOTE | 2025-01-15 16:36 | Billing Data ---
Date of Service January 15, 2025 Coding Level of Care Code 21160 SUB INP/OBS CARE MIN
[2025-01-15 18:29] LABS: Appearance Urine Clear (Clear); Bacteria Urine Automated 3+ (None Seen); Cast Urine Automated 0-2 /lpf (0-2); Epithelial Cell Urine Auto 0-2 /hpf (0-2); Glucose Urine UA Negative (Negative); RBC Urine Automated 0-2 /hpf (0-2); WBC Urine Automated 0-5 /hpf (0-5)
[2025-01-16 07:19] LABS: Hematocrit (blood only) 33.1 % (37.0-47.0); Hemoglobin 10.6 g/dl (12.0-16.0); Immature Granulocytes # (auto) 0.12 K/uL (0.01-0.20); Immature Granulocytes % (auto) 1.0 %; Mean Corpuscular Hemoglobin 30.4 pg (25.0-34.0); Mean Corpuscular Volume 94.8 fL (80.0-100.0); Platelet Count 132 K/uL (130-400); RDW Standard Deviation 59.7 fL (36.4-46.3); Red Blood Count 3.49 M/uL (4.20-5.40); White Blood Count 12.26 K/ul (4.8-10.8)
[2025-01-16 07:35] LABS: Anion Gap 5.0 (3-11); Blood Urea Nitrogen 33.0 mg/dl (6-23); Calcium 9.6 mg/dl (8.6-10.3); Carbon Dioxide 30.0 mmol/L (21-32); Chloride 109.0 mmol/L (98-107); Creatinine Clr Calc Pharmacy 46.2 ml/min; Glucose 152.0 mg/dl (70-99(Fasting)); Potassium 4.3 mmol/L (3.5-5.1); Sodium 144.0 mmol/L (136-145)
[2025-01-16 07:58] VITALS: BP 98/52; PULSE 82; RESP 20; TEMP 97.9; O2SAT 93
--- NOTE | 2025-01-16 10:37 | Discharge Summary ---
Date of Service January 16, 2025 Admission HPI Per Admitting Provider Dali is a 69-year-old female with past medical history of weakness due to MS and deconditioning, type II DM, hypertension discharged from hospital 10/15/2024, was noted to have extensive foci of demyelination throughout the brain and spinal cord although no active spinal lesions on contrasted study to indicate recent/acute disease. At that time she declined DMT, had a negative NMO antibody and was following with neurology as an outpatient. She presented to the emergency department and was referred for admission after she had increasing swelling in her legs and hands, shortness of breath, and was found to be hypoxic requiring 2 L in the ER. She does have a past history of congestive heart failure. BNP is not elevated, Quad screen is normal. She does not have a leukocytosis and is not febrile on admission. He has borderline hypotension. She is recommended for admission for acute hypoxic respiratory failure due to suspected volume overload. Dali seen at the bedside. She reports that she was referred to the ER from family who are concerned that she looked like she was having trouble breathing. Send reports she has had a history of leg swelling, she feels her legs are relat ively normal for her right now. She does report that she chronically gets short of breath when laying flat she does not think this is changed. She does have some gurgling and a cough productive for thick whitish sputum. She denies fever chills or sweats. She denies chest pain. She is not she feels short of breath laying in bed. She is thirsty. She does not think that she has gained weight. She does not feel lightheaded or dizzy. She does not think her wheezing is any more or less than normal, she endorses a little bit of wheezing when breathing but does not feel like she is having an asthma exacerbation. Took medications this morning. She denies pleuritic pain/inspiratory pain. Denies leg swelling and calf pain. Denies dysuria/polyuria Medical History: Reviewed Medications: Reviewed Surgical History: Reviewed Family history: Reviewed Allergies: Reviewed Social History: REviewed Code Status: Full Code Admission Exam Per Admitting Provider General: A&Ox3. NAD. Cooperative. HEENT: Atraumatic, normocephalic. Vision and hearing grossly intact Pulm: Patient with some coarse breath sounds mostly coming from upper airway, on cough these clear. On inspiration she has trace inspiratory squeaks/high- pitched wheezes in the bases, no rales/crackles are appreciated. On admitting exam Cardiac: RRR, -mrg. Radial pulses intact and symmetrical. No JVD Abdominal: Obese nontender, nondistended, soft. BS present. Extremities: No pitting edema Principal Diagnosis asthma exacerbation Discharge Exam General: A&Ox3, no acute distress, cooperative HEENT: NC/AT, EOM intact, anicteric sclerae CV: RRR, +s1/s2, no m/r/g. Radial pulses intact and symmetrical. No JVD Resp: scattered wheeze b/l, trace rales in b/l bases, otherwise good air movement b/l, no rhonchi GI/Abd: Normoactive BS, abdomen soft, nondistended, nontender to palpation Extremities: 1+ pitting edema in b/l LE Neuro: no facial droop, speech intact, moves all extremities Discharge Data Allergies Allergy/AdvReac Type Severity Reaction Status Date / Time montelukast [From Singulair] Allergy Mild Unknown Verified 01/14/25 00:05 Fish Containing Products Allergy Unknown Unknown Verified 01/14/25 00:05 shellfish derived Allergy Unknown Verified 01/14/25 00:05 codeine AdvReac Mild NAUSEATED Verified 01/14/25 00:05 Consultations 01/13/25 23:01 ED Decision to Admit Stat Hospital Course (1) Acute respiratory failure with hypoxia: (2) Asthma exacerbation: Tito Mcnally is a 69 Y O Female with PMH of weakness due to MS and deconditioning. type II DM, Hypertension presented to ER with shortness of breath and increased swelling in her hands and legs. She was hypoxic in the ER requiring 2l of O2. She was admitted for acute hypoxic respiratory failure due to asthma exacerbation. Due to clinical improvement and adequate O2 saturation on room air, we feel comfortable with her discharge on the condition that she continues taking oral prednisone for 5 days and follows up with PCP within a week. #Acute hypoxic Respiratory Failure #Acute asthma exacerbation - Last echo 11/2023: LVEF 65-70%. No wall motion abnormalities Echo 01/14/25 showing LVEF>70%, small LV cavity size, mild concentric LVH; normal RV size and function, no significant valvular pathology - Chest Xray with no volume overload - s/p IV methylpred, started oral prednisone 50mg today, to continue for total of 5 days - daily maintenance: Continue Advair as prescribed, continue home budensonide- formoterol after advair runs out - albuterol / duonebs prn for wheeze - use incentive spirometer hourly, then every 4hrs once breathing and cough have improved #NSVT versus ectopy; sparse Mobitz 2 - setting up with cardiac event monitor, someone from cardiology will reach out to pt tomorrow 01/17/25 once nurse yard manager is back - Started on low dose beta shaina metop tartrate 12.5mg BID, currently held for bradycardia and hypotension -continue tele monitoring, pt was rowena overnight down to 40s -Magnesium: 1.8 -> given 2 bags mag sulfate on 01/15/25 #DUNCAN -Creatinine continues to improve: 1.35 -> 1.27 - continuing to encourage good PO fluid and food intake - BMP outpatient with PCP #Lower extremity venous stasis -Bumex outpatient, holding while inpatient rodrick while hypotensive and with creatinine elevation continue Venous stasis mobilization strategies. Elevate legs for least 20 minutes 3 times daily. SCDs to the knees. Type II DM Metformin held Basal bolus insulin while admitted Goal BSG [id number] Glucose checks AC/at bedtime Hypertension ARB held for mild DUNCAN and low BP, continue holding for continued low BP until PCP followup - newly added metop also held for low BP and rowena Continue holding metoprolol until followup with PCP as BP has been on the lower side and heart rate dipping to 40s during sleep Total Time Total Time Spent Total Time Spent (In Minutes): <30 Discharge Plan Discharge Items Patient Disposition: Home - Self-Care Reason For Visit: AHRF Discharge Diagnosis: asthma exacerbation Condition on Discharge: Fair Activity: Per Instructions section Non-emergency contact: Primary Care Provider Call non-emergency contact if: your symptoms worsen Follow-up/Referrals: Rhona Canales [Primary Care Provider] - Diet: Heart Healthy Addtl Attending Provider Instructions: You were admitted for acute hypoxic respiratory failure due to asthma exacerbation. Due to clinical improvement and adequate O2 saturation on room air, we feel comfortable with your discharge on the condition that she continues taking oral prednisone for 5 days and follows up with PCP within a week. #Acute hypoxic Respiratory Failure #Acute asthma exacerbation - Last echo 11/2023: LVEF 65-70%. No wall motion abnormalities Echo 01/14/25 showing LVEF>70%, small LV cavity size, mild concentric LVH; normal RV size and function, no significant valvular pathology - Chest Xray with no volume overload - s/p IV methylpred, started oral prednisone 50mg 01/16/25, to continue for total of 5 days - daily maintenance: Continue Advair as prescribed, continue home budensonide- formoterol after advair runs out - albuterol / duonebs prn for wheeze - use incentive spirometer hourly, then every 4hrs once breathing and cough have improved #NSVT versus ectopy; sparse Mobitz 2 - setting up with cardiac event monitor, someone from cardiology will reach out to pt tomorrow 01/17/25 once nurse yard manager is back - Started on low dose beta shaina metop tartrate 12.5mg BID, currently held for bradycardia and hypotension -continue tele monitoring, pt was rowena overnight down to 40s -Magnesium: 1.8 -> given 2 bags mag sulfate on 01/15/25 #DUNCAN -Creatinine continues to improve: 1.35 -> 1.27 - continuing to encourage good PO fluid and food intake - BMP outpatient with PCP #Lower extremity venous stasis -Bumex outpatient, holding while inpatient rodrick while hypotensive and with creatinine elevation continue Venous stasis mobilization strategies. Elevate legs for least 20 minutes 3 times daily Type II DM Metformin held inpatient, continue once outpatient Basal bolus insulin while admitted Goal BSG [id number] Hypertension ARB held for mild DUNCAN and low BP, continue holding for continued low BP until PCP followup - newly added metop also held for low BP and rowena Continue holding metoprolol until followup with PCP as BP has been on the lower side and heart rate dipping to 40s during sleep Pending Studies at Discharge: No Stand-Alone Forms: My [employer], Smoking Cessation Medications and DC Order Prescriptions: New prednisone 50 mg Tablet 50 mg PO QAM 5 Days Qty: 5 0RF metoprolol tartrate 25 mg Tablet 12.5 mg PO BID 30 Days Qty: 30 0RF Continued (DME) Power Wheelchair Device See Rx Instructions .Route Qty: 1 0RF Rx Instructions: As directed budesonide-formoterol 160-4.5 mcg/actuation HFA aerosol inhaler 2 puff inhalation BID Qty: 10.2 2RF (DME) Aerochamber MV Spacer See Rx Instructions .ROUTE .MEDSUPPLY Qty: 1 0RF Rx Instructions: As directed levothyroxine 25 mcg tablet 25 mcg PO DAILYBB omeprazole 20 mg capsule,delayed release(DR/EC) 20 mg PO PM benazepril 40 mg tablet 40 mg PO QAM Hold Instructions: Resume on 11/05/24. until BP elevates or seen by PCP aspirin 81 mg Tablet,Delayed Release (Dr/Ec) 81 mg PO QAM Qty: 30 0RF atorvastatin 40 mg tablet 40 mg PO HS docusate sodium 100 mg capsule 100 mg PO PM PRN (Reason: Constipation) turmeric 400 mg Capsule 400 mg PO QAM Rx Instructions: Unable to verify strength of OTC medication with patient/caregiver at this date/time. albuterol sulfate 2.5 mg /3 mL (0.083 %) solution for nebulization 2.5 mg continuous nebulization DIRECTED PRN (Reason: Shortness Of Breath Or Wheezing) diclofenac potassium 50 mg tablet 50 mg PO TID PRN (Reason: Pain) vitamin B complex Tablet 1 tab PO DAILY nystatin [Klayesta] 100,000 unit/gram powder 1 applic TOPICAL BID Rx Instructions: under breast Centrum Adult 50 Plus 80 mcg Tablet,Chewable 1 tab PO DAILY bumetanide 1 mg tablet 0.5 mg PO DIRECTED PRN (Reason: .edema) metformin 1,000 mg tablet 1,000 mg PO BID Rx Instructions: TAKE THIS MED AT 9AM AND 5PM albuterol sulfate 90 mcg/actuation HFA aerosol inhaler 2 puff INHALATION Q4H PRN (Reason: Shortness Of Breath Or Wheezing) ipratropium bromide 21 mcg (0.03 %) spray,non-aerosol 2 spray INTRANASAL BID Discharge Orders: Discharge Order (Routine); Ordered 01/16/25 Ordered By: Jay Christianson/Other Patient Handouts: What Is Event Monitoring?, Controlling Your Asthma, Heart Rhythm Monitoring Ch, Controlling Your Asthma Triggers, Asthma Inhaled Corticosteroids, Acute Severe Asthma Admission Data Admit Date/Time: 01/13/25 23:42 Attending Provider: Armando Brush Admit Provider: Sam Rasheed Primary Care Provider: Rhona Canales Other Providers: Sam Rasheed Other Interventions: Discharge Summary Assessment (RN) Last Done: 01/16/25 12:03 Supervising Physician Co-Signing Physician Notes I personally examined the patient and verified all ray points of history and exam, discussed case, and agree with decision making with Dr Hernandez feeling better breathing better. overall improving. feeling better overall. Feels up to getting home. Vitals noted, in general she is awake and alert fatigued appears mildly short of breath. Lungs show Very faint rhonchi throughout but it is symmetric moderate air entry no asymmetric findingsexam overall improved compared to yesterday and dramatically better than 2 days ago. Labs and diagnostics noted. Dyspnea/hypoxiaagree with admitting team asthma flare appears to be the most likely. doing better ovreall. continue nebs and steroids, hopefully home soon bradycardia - stopped metoprolol. mostly sinus, mobitz 1, occassional dropped beat but not when rowena - will definitely hold off on further metoprolol, will ask for an event monitor given the oddities of her rhythm and to ensure that she is not truly showing a Mobitz 2 DVT proph - lovenox utilized during her stay otherwise as above, safe/stable for home Resident Activity Tracking Resident Involvement: Resident Care Provided Care Provided: Adult Hospital Medicine
[2025-01-16] MEDS ORDERED: ALBUT/IPRATROP 3MG/0.5MG NEB 3 ML VIAL NEB PRN (10:42)
--- NOTE | 2025-01-16 13:19 | Billing Data ---
Date of Service January 16, 2025 Coding Level of Care Code 26373 IN/OBS DISCH 30 MIN/LESS
--- NOTE | 2025-01-16 22:13 | Electrocardiogram Report ---
Test Reason : Blood Pressure : */* mmHG Vent. Rate : 98 BPM Atrial Rate : 98 BPM P-R Int : 198 ms QRS Dur : 82 ms QT Int : 360 ms P-R-T Axes : 47 -30 23 degrees QTcB Int : 459 ms Normal sinus rhythm Left axis deviation Cannot rule out Anterior infarct (cited on or before 15-Aug-2021) Abnormal ECG When compared with ECG of 10-Oct-2024 09:50, Questionable change in initial forces of Lateral leads Confirmed by Triston Negrete ([id number]) on 01/16/2025 10:12:28 PM Referred By: REFERRED SELF Confirmed By: Triston Negrete
--- NOTE | 2025-01-17 18:23 | Electrocardiogram Report ---
Test Reason : Blood Pressure : */* mmHG Vent. Rate : 56 BPM Atrial Rate : 56 BPM P-R Int : 216 ms QRS Dur : 96 ms QT Int : 428 ms P-R-T Axes : 45 -21 5 degrees QTcB Int : 413 ms Sinus bradycardia with marked sinus arrhythmia with 1st degree A-V block Minimal voltage criteria for LVH, may be normal variant Borderline ECG When compared with ECG of 13-Jan-2025 20:27, Vent. rate has decreased by 42 bpm Minimal criteria for Anterior infarct are no longer Present Confirmed by Nuno Fisher ([id number]) on 01/17/2025 6:22:55 PM Referred By: REFERRED SELF Confirmed By: Nuno Fisher
== END 2025-01-16 13:06 | disposition home health service (06) | DRG 202 ==
LOC: ED 20:08 → SUATTDRO 23:42 → 2S 23:42

== ENCOUNTER 2025-01-21 16:25 | Observation (INO) ==
--- NOTE | 2025-01-21 16:37 | Emergency Department Note ---
Impression & Plan Shortness of breath, Asthma exacerbation, Cough ED Provider Note NAME: GARRICK HERNANDEZ AGE: 69 SEX: F : 1955 ARRIVES VIA: Ambulance INFORMANT: Patient ED PROVIDER(S): Armando Booth DO CHIEF COMPLAINT: Shortness of breath HPI: Patient is a 69-year-old female who presents to the ER with a past medical history of morbid obesity, hypertension, hypoxia and multiple sclerosis for shortness of breath which started earlier today. She admits to increased swelling in her legs. Denies any headache or change in vision. No chest pain. She notes that she still has a mildly productive cough which she had on last admission just under a week. No dysuria, urgency, or frequency. No other exacerbating or remitting factors. ADDITIONAL HISTORY OBTAINED: Per HPI Chronic Medical/Social Conditions Affecting Care: Per HPI PAST MEDICAL HISTORY:See Below PAST SURGICAL HISTORY:See Below FAMILY HISTORY:See Below SOCIAL HISTORY:See Below HOME MEDICATIONS:See Below ALLERGIES:See Below VITALS:See Below PHYSICAL EXAMINATION: GENERAL: Sitting up in bed, alert, well appearing, well nourished, no distress, non-toxic EYE EXAM: normal conjunctiva. PERRL and EOM's grossly intact. OROPHARYNX: no exudate, no erythema, lips, buccal mucosa, and tongue normal and mucous membranes are moist NECK: supple, no nuchal rigidity, no adenopathy, non-tender LUNGS: Diminished breath sounds bilaterally. Normal chest wall mechanics HEART: no murmurs, S1 normal and S2 normal ABDOMEN: abdomen soft, non-tender, normo-active bowel sounds, no masses, no rebound or guarding. UPPER EXTREMITIES: upper extremities are grossly normal. LOWER EXTREMITIES: Pitting edema bilateral lower extremities. Calves are equal bilaterally NEURO EXAM: Normal sensorium, cranial nerves II-XII grossly intact, normal speech, no gross weakness of arms, no gross weakness of legs. MEDICAL DECISION MAKING: Patient is a 69-year-old female who presents ER for above-stated complaint. Recent mission reviewed including external records from last week at [facility] which showed admission for asthma exacerbation. Labs show no significant leukocytosis or anemia. VBG was fairly unremarkable. BMP was slightly elevated chloride at 108. LFTs with mild transaminitis. T. bili was unremarkable. Troponin was negative. Lipase was just faintly elevated. Viral panel was negative. Chest x-ray was clean. She was given neb treatments with improvement of her symptoms. She was given IV steroids as well. With her significant shortness of breath she was discussed with the hospitalist for further evaluation management treatment. Consults/Care Managements Discussions: Per MDM Triage Nursing notes reviewed. Limited review of prior medical records performed Vital Signs: reviewed and remarkable for no significant abnormalities Differential diagnosis: Differential diagnoses includes but is not limited to pneumonia, bronchitis, COPD/Asthma exacerbation, pneumothorax, pulmonary embolism, congestive heart failure, acute coronary syndrome ER treatment provided: See below Diagnostics interpreted by me include EKG and cardiac monitoring as listed below: -Cardiac Monitoring: An order was placed for continuous cardiac monitoring. The monitor shows a rate of 70 with sinus rhythm. -ECG: Sinus rhythm rate 75 Normal axis No PVCs QTc 417 -Laboratory studies:Interpreted by me as stated above in MDM and shown below. Imaging studies: Xrays: As interpreted by me: Portable AP upright 1 view of the chest shows no focal infiltrate CTs show: none Procedures:none Critical Care: None Past Med/Surg History Problem List (Updated 01/21/25 @ 18:54 by Armando Booth DO) Cough (Acute) Asthma exacerbation (Acute) Shortness of breath (Acute) Elevated serum creatinine (Acute) Hypoxia (Acute) Respiratory difficulty (Acute) Candidal intertrigo (Acute) Weakness (Acute) Eosinophilic asthma Severe persistent allergic asthma Shortness of breath (Acute) Asthma exacerbation (Acute) Edema (Acute) Dyspnea on exertion History of UTI Thrush Yeast dermatitis (Acute) Generalized muscle weakness (Acute) Acute UTI (urinary tract infection) (Acute) Morbid obesity Ventral hernia Hypothyroidism Hypertension Hypomagnesemia (Acute) Diabetes Multiple sclerosis (Acute) UTI (urinary tract infection) (Acute) Abnormal finding on diagnostic imaging of left kidney Medical History Hypomagnesemia Hypothermia URI (upper respiratory infection) Hypomagnesemia Dyspnea Left-sided weakness DUNCAN (acute kidney injury) Brain TIA Acute respiratory failure with hypoxia Osteoarthritis of knees, bilateral Sinusitis, acute Morbid obesity with BMI of 50.0-59.9, adult Tachy-rowena syndrome GERD (gastroesophageal reflux disease) Hypothyroidism Pancreatitis Thrombocytopenia Peripheral edema Septic shock Hypomagnesemia Fungal dermatitis Asthma Hypertension Diabetes Influenza A Pneumonia Multiple sclerosis Surgical History H/O tubal ligation H/O sinus surgery History of arthroscopic knee surgery Hx of tonsillectomy H/O: hysterectomy No pertinent past surgical history Family History Other Family history non-contributory Social History Smoking Status: Never smoker Second Hand Exposure: No; Do You Dip or Chew Tobacco: No; Hx Alcohol Use: No Hx Substance Use: No Preferred Language: Chinese Communication Ability: Effective Data Collection Associate Required: No Beliefs That Will Affect Care: None marital status: Current Living Situation: Spouse and Family Current Living Situation Comment: Spouse and granddaughter How many Children do You have: 2 Feels Safe at Home: Yes Diet: gluten free during the past year weight has: decreased > 10 lbs Assistive Devices: Walker Allergies Allergies Allergy/AdvReac Type Severity Reaction Status Date / Time montelukast [From [facility]] Allergy Mild Unknown Verified 01/14/25 00:05 Fish Containing Products Allergy Unknown Unknown Verified 01/14/25 00:05 shellfish derived Allergy Unknown Verified 01/14/25 00:05 codeine AdvReac Mild NAUSEATED Verified 01/14/25 00:05 Home Meds Home Medications Medication Instructions Recorded Confirmed benazepril 40 mg tablet 40 mg PO QAM 06/25/21 01/21/25 levothyroxine 25 mcg tablet 25 mcg PO DAILYBB 06/25/21 01/21/25 omeprazole 20 mg capsule,delayed 20 mg PO PM 06/25/21 01/21/25 release atorvastatin 40 mg tablet 40 mg PO HS 07/20/23 01/21/25 docusate sodium 100 mg capsule 100 mg PO PM PRN Constipation 07/26/23 01/21/25 turmeric 400 mg capsule 400 mg PO QAM 07/26/23 01/21/25 albuterol sulfate 2.5 mg/3 mL 2.5 mg continuous nebulization 09/25/23 01/21/25 (0.083 %) solution for nebulization DIRECTED PRN Shortness Of Breath Or Wheezing diclofenac potassium 50 mg tablet 50 mg PO TID PRN Pain 09/25/23 01/21/25 vitamin B complex 1 tab PO DAILY 09/25/23 01/21/25 multivitamin with minerals-folic 1 tab PO DAILY 12/01/23 01/21/25 acid 80 mcg chewable tablet (Centrum Adult 50 Plus) nystatin 100,000 unit/gram topical 1 applic topical BID PRN fungal 12/01/23 01/21/25 powder (Klayesta) rash albuterol sulfate 90 mcg/actuation 2 puff inhalation Q4H PRN 01/14/25 01/21/25 aerosol inhaler Shortness Of Breath Or Wheezing ipratropium bromide 21 mcg (0.03 2 spray intranasal BID 01/14/25 01/21/25 %) nasal spray bumetanide 0.5 mg tablet 0.5 mg PO AMPM 01/21/25 01/21/25 metformin 1,000 mg tablet 1,000 mg PO BID 01/21/25 01/21/25 prednisone 50 mg tablet 50 mg PO QAM 01/21/25 01/21/25 Previous Rx's Medication Instructions Recorded aspirin 81 mg tablet,delayed 81 mg PO QAM #30 tabs 08/16/21 release Wheelchair (Powered) (Power #1 ea 11/05/23 Wheelchair) budesonide-formoterol HFA 160 2 puff inhalation BID #10.2 grams 12/28/23 mcg-4.5 mcg/actuation aerosol inhaler inhalational spacing device #1 ea 12/28/23 (Aerochamber MV spacer) metoprolol tartrate 25 mg tablet 12.5 mg (1/2 x 25 mg) PO BID 30 01/16/25 days #30 tabs Results & Data (ED) Vital Signs Vital Signs - 24 hr 01/21/25 16:30 01/21/25 16:30 01/21/25 16:32 Temperature 35.7 C L Temperature Source Axillary Pulse Rate 92 H 99 H Pulse Rate from SpO2 Sensor Pulse Rhythm Regular Respiratory Rate 26 H 26 H Respiratory Effort / Characteristics Spontaneous Respiratory Depth Normal Deep Respiratory Pattern Regular Blood Pressure 126/96 Blood Pressure Mean 106 Pulse Oximetry 95 95 Oxygen Delivery Method Room Air Room Air Sepsis Recent Fever Within 48 Hours No Sepsis New/Unexplained Change in Mental Status No Sepsis Action Taken by Nursing Physician Notified 01/21/25 16:32 01/21/25 16:49 01/21/25 17:30 Temperature Temperature Source Pulse Rate 99 H 92 H Pulse Rate from SpO2 Sensor Pulse Rhythm Respiratory Rate 15 Respiratory Effort / Characteristics Respiratory Depth Respiratory Pattern Blood Pressure 129/76 Blood Pressure Mean 89 Pulse Oximetry 96 Oxygen Delivery Method Room Air Sepsis Recent Fever Within 48 Hours Sepsis New/Unexplained Change in Mental Status Sepsis Action Taken by Nursing 01/21/25 18:00 01/21/25 18:31 Temperature Temperature Source Pulse Rate 67 88 Pulse Rate from SpO2 Sensor 87 Pulse Rhythm Respiratory Rate 22 22 Respiratory Effort / Characteristics Respiratory Depth Respiratory Pattern Blood Pressure 128/83 116/79 Blood Pressure Mean 98 96 Pulse Oximetry 96 100 Oxygen Delivery Method Sepsis Recent Fever Within 48 Hours Sepsis New/Unexplained Change in Mental Status Sepsis Action Taken by Nursing Laboratory Data 01/21/25 16:50 01/21/25 16:50 Lab Results 01/21/25 01/21/25 Range/Units 16:50 17:14 WBC 10.76 (4.8-10.8) K/ul RBC 4.15 L (4.20-5.40) M/uL Hgb 12.5 (12.0-16.0) g/dl Hct 38.7 (37.0-47.0) % MCV 93.3 (80.0-100.0) fL MCH 30.1 (25.0-34.0) pg MCHC 32.3 (32.0-36.0) g/dL RDW Std Deviation 59.1 H (36.4-46.3) fL RDW Coeff of Kaia 17.3 H (11.5-14.5) % Plt Count 148 (130-400) K/uL MPV 12.6 H (9.4-12.4) fL Immature Gran % (Auto) 0.5 % Neut % (Auto) 75.5 % Lymph % (Auto) 17.5 % [place] % (Auto) 5.7 % Eos % (Auto) 0.7 % Baso % (Auto) 0.1 % Neut # (Auto) 8.13 H (1.40-6.50) K/uL Lymph # (Auto) 1.88 (1.20-3.40) K/uL [place]ble # (Auto) 0.61 H (0.11-0.59) K/uL Eos # (Auto) 0.08 (0.00-0.50) K/uL Baso # (Auto) 0.01 (0.00-0.20) K/uL Immature Gran # (Auto) 0.05 (0.01-0.20) K/uL VBG pH 7.38 (7.36-7.41) VBG pCO2 47 (38-50) mmHg VBG pO2 28 mmHg VBG HCO3 28 mmol/L VBG O2 Saturation < 60.0 % VBG Base Excess 2.0 mEq/L Sodium 143 (136-145) mmol/L Potassium 4.7 (3.5-5.1) mmol/L Chloride 108 H (98-107) mmol/L Carbon Dioxide 26 (21-32) mmol/L Anion Gap 9 (3-11) BUN 33 H (6-23) mg/dl Creatinine 1.06 (0.6-1.2) mg/dl Est Cr Clr Drug Dosing 56.6 ml/min eGFR 56.51 BUN/Creatinine Ratio 31.1 H (10-20) Glucose 120 H (70-99(Fasting)) mg/dl Calcium 10.1 (8.6-10.3) mg/dl Total Bilirubin 0.5 (0.2-1.0) mg/dl AST 41 H (13-39) U/L ALT 64 H (7-52) U/L Alkaline Phosphatase 122 H (34-104) U/L Troponin I High Sens 4.0 (0-14) pg/ml B-Natriuretic Peptide 18 (0-100) pg/ml Total Protein 7.3 (6.0-8.3) gm/dl Albumin 3.9 (3.4-5.0) gm/dl Globulin 3.4 (2.5-4.0) gm/dl Albumin/Globulin Ratio 1.1 (0.9-2) Lipase 112 H (11-82) U/L Adenovirus (PCR) Not Detected (NotDetected) B. pertussis DNA (PCR) Not Detected (NotDetected) B.parapertussis DNA PCR Not Detected (NotDetected) C. pneumoniae DNA (PCR) Not Detected (NotDetected) Coronavirus OC43 (PCR) Not Detected (NotDetected) Coronavirus HKU1 (PCR) Not Detected (NotDetected) Coronavirus 229E (PCR) Not Detected (NotDetected) SARS-CoV-2 (PCR) Not Detected (NotDetected) Coronavirus NL63 (PCR) Not Detected (NotDetected) Human Metapneumovir PCR Not Detected (NotDetected) Influenza Type A (PCR) Not Detected (NotDetected) Influenza Type B (PCR) Not Detected (NotDetected) M. pneumoniae (PCR) Not Detected (NotDetected) Parainfluenza 1 (PCR) Not Detected (NotDetected) Parainfluenza 2 (PCR) Not Detected (NotDetected) Parainfluenza 3 (PCR) Not Detected (NotDetected) Parainfluenza 4 (PCR) Not Detected (NotDetected) RSV (PCR) Not Detected (NotDetected) Entero/Rhino (PCR) Not Detected (NotDetected) Administered Medications Discontinued Medications Albuterol (Albut/Ipratrop 3mg/0.5mg Neb 3 Ml Vial) 9 ml NEB NOW STA; Protocol Stop: 01/21/25 17:24 Last Admin: 01/21/25 18:03 Dose: 9 ml Documented By: TEJAS Methylprednisolone (Methylprednisolone 125 Mg/2 Ml Vial) 40 mg IV NOW STA Stop: 01/21/25 18:02 Last Admin: 01/21/25 18:15 Dose: 40 mg Documented By: TEJAS Imaging Data Radiologist's Impression: Chest X-Ray 01/21/25 16:32 Chest radiograph, one view History: Shortness of breath Comparison: January 14, 2025 Findings: Single AP view of the chest performed. No focal consolidation or pleural effusion. No pneumothorax. The cardiomediastinal silhouette is within normal limits. Normal pulmonary vascularity. No evidence for lymphadenopathy. No visualized bony or soft tissue abnormality. Impression: Normal chest radiograph Electronically signed by Nuno Arguello 01-21-2025 5:28 PM Discharge Plan Visit Data Chief Complaint: Shortness of Breath/Dyspnea Stated Complaint: SOB ED Provider: Armando Booth Discharge Problem: Shortness of breath, Asthma exacerbation, Cough Condition: Fair Forms Stand Alone Forms: My [facility] [employer] Prescriptions Prescriptions: No Action (DME) Power Wheelchair Device See Rx Instructions .Route Qty: 1 0RF Rx Instructions: As directed budesonide-formoterol 160-4.5 mcg/actuation HFA aerosol inhaler 2 puff inhalation BID Qty: 10.2 2RF (DME) Aerochamber MV Spacer See Rx Instructions .ROUTE .MEDSUPPLY Qty: 1 0RF Rx Instructions: As directed levothyroxine 25 mcg tablet 25 mcg PO DAILYBB omeprazole 20 mg capsule,delayed release(DR/EC) 20 mg PO PM benazepril 40 mg tablet 40 mg PO QAM Hold Instructions: Resume on 11/05/24. until BP elevates or seen by PCP aspirin 81 mg Tablet,Delayed Release (Dr/Ec) 81 mg PO QAM Qty: 30 0RF atorvastatin 40 mg tablet 40 mg PO HS docusate sodium 100 mg capsule 100 mg PO PM PRN (Reason: Constipation) turmeric 400 mg Capsule 400 mg PO QAM albuterol sulfate 2.5 mg /3 mL (0.083 %) solution for nebulization 2.5 mg continuous nebulization DIRECTED PRN (Reason: Shortness Of Breath Or Wheezing) diclofenac potassium 50 mg tablet 50 mg PO TID PRN (Reason: Pain) vitamin B complex Tablet 1 tab PO DAILY nystatin [Klayesta] 100,000 unit/gram powder 1 applic TOPICAL BID PRN (Reason: fungal rash) Rx Instructions: under breast Centrum Adult 50 Plus 80 mcg Tablet,Chewable 1 tab PO DAILY albuterol sulfate 90 mcg/actuation HFA aerosol inhaler 2 puff INHALATION Q4H PRN (Reason: Shortness Of Breath Or Wheezing) ipratropium bromide 21 mcg (0.03 %) spray,non-aerosol 2 spray INTRANASAL BID metoprolol tartrate 25 mg Tablet 12.5 mg PO BID 30 Days Qty: 30 0RF bumetanide 0.5 mg tablet 0.5 mg PO AMPM prednisone 50 mg tablet 50 mg PO QAM Rx Instructions: ordered for 5 days on 01/16/25 metformin 1,000 mg tablet 1,000 mg PO BID Referrals Referrals: Rhona Canales [Primary Care Provider] - Discharge Problem: Asthma exacerbation Qualifiers: Asthma severity: mild Asthma persistence: unspecified Qualified Code(s): J 45.901 - Unspecified asthma with (acute) exacerbation Cough Qualifiers: Cough type: unspecified Qualified Code(s): R05.9 - Cough, unspecified
[2025-01-21 17:06] LABS: Hematocrit (blood only) 38.7 % (37.0-47.0); Hemoglobin 12.5 g/dl (12.0-16.0); Immature Granulocytes # (auto) 0.05 K/uL (0.01-0.20); Immature Granulocytes % (auto) 0.5 %; Mean Corpuscular Hemoglobin 30.1 pg (25.0-34.0); Mean Corpuscular Volume 93.3 fL (80.0-100.0); Platelet Count 148 K/uL (130-400); RDW Standard Deviation 59.1 fL (36.4-46.3); Red Blood Count 4.15 M/uL (4.20-5.40); White Blood Count 10.76 K/ul (4.8-10.8)
[2025-01-21 17:22] LABS: Base Excess VBG 2.0 mEq/L; HCO3 VBG 28 mmol/L; Oxygen Saturation VBG < 60.0 %; PCO2 VBG 47 mmHg (38-50); PO2 VBG 28 mmHg; pH VBG 7.38 (7.36-7.41)
[2025-01-21 17:23] LABS: Alanine Aminotransferase 64.0 U/L (7-52); Albumin Globulin Ratio 1.1 (0.9-2); Alkaline Phosphatase 122.0 U/L (34-104); Anion Gap 9.0 (3-11); Bilirubin,Total 0.5 mg/dl (0.2-1.0); Blood Urea Nitrogen 33.0 mg/dl (6-23); Calcium 10.1 mg/dl (8.6-10.3); Carbon Dioxide 26.0 mmol/L (21-32); Chloride 108.0 mmol/L (98-107); Creatinine Clr Calc Pharmacy 56.6 ml/min; Globulin 3.4 gm/dl (2.5-4.0); Glucose 120.0 mg/dl (70-99(Fasting)); Lipase 112.0 U/L (11-82); Potassium 4.7 mmol/L (3.5-5.1); Sodium 143.0 mmol/L (136-145); Total Protein 7.3 gm/dl (6.0-8.3)
--- NOTE | 2025-01-21 17:28 | XRay Report ---
Chest radiograph, one view History: Shortness of breath Comparison: January 14, 2025 Findings: Single AP view of the chest performed. No focal consolidation or pleural effusion. No pneumothorax. The cardiomediastinal silhouette is within normal limits. Normal pulmonary vascularity. No evidence for lymphadenopathy. No visualized bony or soft tissue abnormality. Impression: Normal chest radiograph Electronically signed by Nuno Arguello 01-21-2025 5:28 PM
[2025-01-21 17:53] LABS: Chlamydia pneumoniae PCR Not Detected (NotDetected); Coronavirus 229E PCR Not Detected (NotDetected); Coronavirus CoV-2 (COVID19)PCR Not Detected (NotDetected); Coronavirus HKU1 PCR Not Detected (NotDetected); Coronavirus NL63 PCR Not Detected (NotDetected); Coronavirus OC43PCR Not Detected (NotDetected); Human Metapneumovirus PCR Not Detected (NotDetected); Parainfluenza Virus 1 PCR Not Detected (NotDetected); Parainfluenza Virus 2 PCR Not Detected (NotDetected); Parainfluenza Virus 3 PCR Not Detected (NotDetected); Parainfluenza Virus 4 PCR Not Detected (NotDetected); Respiratory Syncytial VirusPCR Not Detected (NotDetected); Rhinovirus/Enterovirus PCR Not Detected (NotDetected)
[2025-01-21] MEDS: ALBUT/IPRATROP 3MG/0.5MG NEB 3 ML VIAL NEB STA (18:03)
--- NOTE | 2025-01-21 18:44 | History & Physical Report ---
Date of Service January 21, 2025 Assessment & Plan (1) Asthma exacerbation: Plan 69 year old female presents with worsening shortness of breath after recent asthma exacerbation and finishing her prednisone yesterday Asthma exacerbation / acute hypoxic respiratory failure Biofire PCR negative Unclear reason of acute worsening today after initially improvement after discharge ?more active/allergens at home Duonebs q4hwa, formoterol Nebs BID, Budesonide Nebs BID Solu-medrol 40mg IV Flutter valve, incentive spirometer Sputum culture #Type 2 diabetes mellitus HbA1C 7.3 in September, repeat with AM labs #Hypertension Continue metoprolol, benazepril and bumetanide #GERD Switch omeprazole for pantoprazole per hospital formulary VTE Prophylaxis - Lovenox 40mg SQ BID (increased dose due to BMI Disposition - observation to med/surg Admission and Anticipated Discharge Date Admission Date: January 21, 2025 History of Present Illness Chief Complaint: Shortness of breath Primary Care Provider: Rhona Canales Dali Smyth is a 69 year old female presents to the ER with shortness of breath. She was recently admitted for asthma exacerbation from January 13 - 2024. She reports improvement during her hospitalization and after discharge initially but today felt much worse again with increased productive cough. Yesterday was her last day of prednisone. No fever, chills. She is unsure why her breathing is worse today. Using albuterol once a day and Symbicort twice a day. Increased productive cough. No chest pain. She has pedal edema but no worse than usual. Allergies Allergy/AdvReac Type Severity Reaction Status Date / Time [facility]elukast [[facility] Allergy Mild Unknown Verified 01/14/25 00:05 Fish Containing Products Allergy Unknown Unknown Verified 01/14/25 00:05 shellfish derived Allergy Unknown Verified 01/14/25 00:05 codeine AdvReac Mild NAUSEATED Verified 01/14/25 00:05 Home Medications Medication Instructions Recorded Confirmed Type benazepril 40 mg tablet 40 mg PO QAM 06/25/21 01/21/25 History levothyroxine 25 mcg tablet 25 mcg PO DAILYBB 06/25/21 01/21/25 History omeprazole 20 mg capsule,delayed 20 mg PO PM 06/25/21 01/21/25 History release aspirin 81 mg tablet,delayed 81 mg PO QAM #30 tabs 08/16/21 01/21/25 Rx release atorvastatin 40 mg tablet 40 mg PO HS 07/20/23 01/21/25 History docusate sodium 100 mg capsule 100 mg PO PM PRN Constipation 07/26/23 01/21/25 History turmeric 400 mg capsule 400 mg PO QAM 07/26/23 01/21/25 History albuterol sulfate 2.5 mg/3 mL 2.5 mg continuous nebulization 09/25/23 01/21/25 History (0.083 %) solution for nebulization DIRECTED PRN Shortness Of Breath Or Wheezing diclofenac potassium 50 mg tablet 50 mg PO TID PRN Pain 09/25/23 01/21/25 History vitamin B complex 1 tab PO DAILY 09/25/23 01/21/25 History Wheelchair (Powered) (Power #1 ea 11/05/23 01/21/25 Rx Wheelchair) multivitamin with minerals-folic 1 tab PO DAILY 12/01/23 01/21/25 History acid 80 mcg chewable tablet (Centrum Adult 50 Plus) nystatin 100,000 unit/gram topical 1 applic topical BID PRN fungal 12/01/23 01/21/25 History powder (Klayesta) rash budesonide-formoterol HFA 160 2 puff inhalation BID #10.2 grams 12/28/23 01/21/25 Rx mcg-4.5 mcg/actuation aerosol inhaler inhalational spacing device #1 ea 12/28/23 01/21/25 Rx (Aerochamber MV spacer) albuterol sulfate 90 mcg/actuation 2 puff inhalation Q4H PRN 01/14/25 01/21/25 History aerosol inhaler Shortness Of Breath Or Wheezing ipratropium bromide 21 mcg (0.03 2 spray intranasal BID 01/14/25 01/21/25 History %) nasal spray metoprolol tartrate 25 mg tablet 12.5 mg (1/2 x 25 mg) PO BID 30 01/16/25 01/21/25 Rx days #30 tabs bumetanide 0.5 mg tablet 0.5 mg PO AMPM 01/21/25 01/21/25 History metformin 1,000 mg tablet 1,000 mg PO BID 01/21/25 01/21/25 History prednisone 50 mg tablet 50 mg PO QAM 01/21/25 01/21/25 History Past Med/Surg History Problem List (Updated 01/21/25 @ 18:54 by Armando Booth DO) Cough (Acute) Asthma exacerbation (Acute) Shortness of breath (Acute) Elevated serum creatinine (Acute) Hypoxia (Acute) Respiratory difficulty (Acute) Candidal intertrigo (Acute) Weakness (Acute) Eosinophilic asthma Severe persistent allergic asthma Shortness of breath (Acute) Asthma exacerbation (Acute) Edema (Acute) Dyspnea on exertion History of UTI Thrush Yeast dermatitis (Acute) Generalized muscle weakness (Acute) Acute UTI (urinary tract infection) (Acute) Morbid obesity Ventral hernia Hypothyroidism Hypertension Hypomagnesemia (Acute) Diabetes Multiple sclerosis (Acute) UTI (urinary tract infection) (Acute) Abnormal finding on diagnostic imaging of left kidney Medical History Hypomagnesemia Hypothermia URI (upper respiratory infection) Hypomagnesemia Dyspnea Left-sided weakness DUNCAN (acute kidney injury) Brain TIA Acute respiratory failure with hypoxia Osteoarthritis of knees, bilateral Sinusitis, acute Morbid obesity with BMI of 50.0-59.9, adult Tachy-rowena syndrome GERD (gastroesophageal reflux disease) Hypothyroidism Pancreatitis Thrombocytopenia Peripheral edema Septic shock Hypomagnesemia Fungal dermatitis Asthma Hypertension Diabetes Influenza A Pneumonia Multiple sclerosis Surgical History H/O tubal ligation H/O sinus surgery History of arthroscopic knee surgery Hx of tonsillectomy H/O: hysterectomy No pertinent past surgical history Family History Other Family history non-contributory Social History Smoking Status: Never smoker Second Hand Exposure: No; Do You Dip or Chew Tobacco: No; Hx Alcohol Use: No Hx Substance Use: No Preferred Language: Malay Communication Ability: Effective Engraver Steel Plate Required: No Beliefs That Will Affect Care: None marital status: Current Living Situation: Spouse Current Living Situation Comment: lives at home with spouse and grandaughter How many Children do You have: 2 Feels Safe at Home: Yes Safety Concerns: Feels Safe At This Time Diet: gluten free during the past year weight has: decreased > 10 lbs Assistive Devices: Walker and Wheelchair Review of Systems 2 Review of Systems: All systems reviewed & are unremarkable except as noted in HPI & below Physical Exam Constitutional: WD/WN, vitals as above ENMT: external ear and nose normal, oropharynx normal Respiratory: + labored breathing, + uses accessory mu scles and able to speak in complete sentences; no audible wheezes Auscultation: + crackles (bibasal), + rhonchi (anteriorly) and + wheezes (expiratory) Cardiovascular: Rate/Rhythm: regular rate and regular rhythm Heart Sounds: no murmur Extremities: + pedal edema (1+ b/l pitting edema) Gastrointestinal (Abdomen): normal bowel sounds, soft, nontender, no hepatosplenomegaly Musculoskeletal: no cyanosis or clubbing, extremities motor strength 5/5 Skin: no rashes, warm and dry Neurologic: moves all extremities and awake; not confused Psychiatric: A+Ox3, euthymic affect Results & Data Results & Data Vital Signs (Past 12 Hours) Vital Signs Temp Pulse Resp BP Pulse Ox O2 Del Method 01/21/25 18:31 88 22 116/79 100 01/21/25 18:00 67 22 128/83 96 01/21/25 17:30 92 H 15 129/76 96 01/21/25 16:49 99 H 01/21/25 16:32 Room Air 01/21/25 16:30 99 H 26 H 95 Room Air 01/21/25 16:30 35.7 C L 92 H 26 H 126/96 95 Room Air Laboratory Results Abnormal lab results 01/21/25 01/21/25 Range/Units 16:50 21:15 RBC 4.15 L (4.20-5.40) M/uL RDW Std Deviation 59.1 H (36.4-46.3) fL RDW Coeff of Kaia 17.3 H (11.5-14.5) % MPV 12.6 H (9.4-12.4) fL Neut # (Auto) 8.13 H (1.40-6.50) K/uL [place] # (Auto) 0.61 H (0.11-0.59) K/uL Chloride 108 H (98-107) mmol/L BUN 33 H (6-23) mg/dl BUN/Creatinine Ratio 31.1 H (10-20) Glucose 120 H (70-99(Fasting)) mg/dl POC Glucose 166 H (70-99) mg/dl AST 41 H (13-39) U/L ALT 64 H (7-52) U/L Alkaline Phosphatase 122 H (34-104) U/L Lipase 112 H (11-82) U/L Diagnostic Findings Chest radiograph, one view History: Shortness of breath Comparison: January 14, 2025 Findings: Single AP view of the chest performed. No focal consolidation or pleural effusion. No pneumothorax. The cardiomediastinal silhouette is within normal limits. Normal pulmonary vascularity. No evidence for lymphadenopathy. No visualized bony or soft tissue abnormality. Impression: Normal chest radiograph Medications Administered ER Medications Given: Duoneb 9ml Solu-Medrol 40mg IV ECG Rate (beats per minute): 75 Rhythm: sinus with SA Findings: no acute ischemic change Comparison ECG Date: from (January 15, 2025) Change: no significant change Code Status & VTE Plan Code Status Full VTE Prophylaxis Plan VTE Prophylaxis will be ordered: Yes PG Care Time/CCT Total # of Minutes Spent Total Time Spent with Patient: Total time spent is greater than 50% in coordination of care (as documented) at patient's floor/unit and/or counseling patient: Coding Level of Care Code 04803 INT INP/OBS CARE 375MIN Diagnoses Asthma exacerbation J45.901 Asthma persistence: unspecified Asthma severity: mild (1) Asthma exacerbation Asthma persistence: unspecified Asthma severity: mild Qualified Code(s): J45.901 - Unspecified asthma with (acute) exacerbation
[2025-01-21] MEDS ORDERED: DOCUSATE SODIUM 100 MG CAP PO PRN (20:46)
[2025-01-21] MEDS ORDERED: GLUCOSE 40% GEL 15 GM TUBE PO PRN (20:57)
[2025-01-21] MEDS ORDERED: CARBOHYDRATES FOR HYPOGLYCEMIA PO PRN (20:57)
[2025-01-21] MEDS ORDERED: GLUCAGON FOR INJ 1 MG VIAL SQ PRN (20:57)
[2025-01-21] MEDS ORDERED: DEXTROSE 50% 50 ML SYRINGE IV PRN (20:57)
[2025-01-21] MEDS ORDERED: GLUCOSE 10 TAB/TUBE PO PRN (20:57)
[2025-01-21] MEDS: FORMOTEROL 20 MCG/2 ML VIAL NEB SCH (21:45)
[2025-01-21] MEDS: BUDESONIDE 0.5 MG/2 ML VIAL (PULMICORT) NEB SCH (21:45)
[2025-01-21] MEDS: ALBUT/IPRATROP 3MG/0.5MG NEB 3 ML VIAL NEB SCH (21:45)
[2025-01-21] MEDS: NYSTATIN POWDER 15GM BTL EXT SCH (21:58)
[2025-01-21] MEDS: ATORVASTATIN 40 MG TAB PO SCH (21:59)
[2025-01-21] MEDS: guaiFENesin 600 MG TABCR PO SCH (21:59)
[2025-01-21] MEDS: IPRATROPIUM BROMIDE NASAL SPRAY 0.03% 30 ML NAE SCH (21:59)
[2025-01-21] MEDS: INSULIN ASPART PER UNIT CHARGE SC SCH (22:00)
[2025-01-21 22:31] VITALS: TEMP 97.9
[2025-01-22] MEDS: LEVOTHYROXINE SODIUM 25 MCG TABLET PO SCH (05:46)
[2025-01-22 06:45] LABS: Anion Gap 8.0 (3-11); Blood Urea Nitrogen 31.0 mg/dl (6-23); Calcium 9.6 mg/dl (8.6-10.3); Carbon Dioxide 26.0 mmol/L (21-32); Chloride 109.0 mmol/L (98-107); Creatinine Clr Calc Pharmacy 53.2 ml/min; Glucose 247.0 mg/dl (70-99(Fasting)); Potassium 4.3 mmol/L (3.5-5.1); Sodium 143.0 mmol/L (136-145)
[2025-01-22 07:46] LABS: Hemoglobin A1C 6.7 % (4.5-5.6)
[2025-01-22] MEDS: ENALAPRIL MALEATE 10 MG TAB PO SCH (09:16)
[2025-01-22] MEDS: BUMETANIDE 1 MG TAB PO SCH (09:16)
[2025-01-22] MEDS: ASPIRIN 81 MG ECTAB PO SCH (09:18)
[2025-01-22] MEDS: ENOXAPARIN INJ 40 MG/0.4 ML SYR SQ SCH (11:00)
[2025-01-22 14:45] VITALS: BP 111/75; RESP 16; O2SAT 94
--- NOTE | 2025-01-22 14:58 | Discharge Summary ---
Discharge Summary Date of Service January 22, 2025 Principal Dx & Hospital Course #1 = Principal Diagnosis (1) Asthma exacerbation: Plan 69 year old female presents with worsening shortness of breath after recent asthma exacerbation and finishing her prednisone yesterday Asthma exacerbation / acute hypoxic respiratory failure Biofire PCR negative Unclear reason of acute worsening today after initially improvement after discharge - possibly due to finish of steroids. w/ improvement in symptoms after 1 dose of IV Solu medrol discharged home on prednisone taper referral send to [employer] recommend follow up w/ PCP closely. #Type 2 diabetes mellitus HbA1C 6.7% Resume outpatient diabetic meds on discharge #Hypertension Continue metoprolol, benazepril and bumetanide #GERD Switch omeprazole for pantoprazole per hospital formulary Updated at bedside 01/22. Admission HPI Per Admitting Provider Dali Smyth is a 69 year old female presents to the ER with shortness of breath. She was recently admitted for asthma exacerbation from January 13 - 2024. She reports improvement during her hospitalization and after discharge initially but today felt much worse again with increased productive cough. Yesterday was her last day of prednisone. No fever, chills. She is unsure why her breathing is worse today. Using albuterol once a day and Symbicort twice a day. Increased productive cough. No chest pain. She has pedal edema but no worse than usual. Discharge Exam Constitutional WD/WN, vitals as above Eyes PERRL, conjunctivae normal, anicteric sclerae Respiratory Lungs clear, effort normal Cardiovascular RRR, no murmur, no edema Psychiatric A+Ox3, euthymic affect Discharge Plan Discharge Items Patient Disposition: Home - Self-Care Reason For Visit: ASTHMA EXACERBATION Discharge Diagnosis: Astham Exacerbation Condition on Discharge: Fair Activity: Resume your previous activity Non-emergency contact: Primary Care Provider Call non-emergency contact if: you have any medication questions and your symptoms worsen Follow-up/Referrals: David Barroso MD [Physician] - Rhona Canales [Primary Care Provider] - Diet: Carb Consistent or DM2 and Low Sodium (2gm) Addtl Attending Provider Instructions: Mrs. Smyth, You were recently hospitalized for shortness of breath. Your workup was negative and this was thought to be related to an ongoing asthma exacerbation. After a dose of steroids your symptoms improved. Please see recommendations below regarding your discharge. Please complete a prednisone taper as prescribed to you. This will start tomorrow, 01/23. A referral to pulmonology has been placed. Their office will be in touch with you for an appointment. The remainder of your medications may be resumed. Please follow up with your PCP in 1-2 weeks of discharge for further care. Best of luck! Rose Delgadillo PA-C Pending Studies at Discharge: No Stand-Alone Forms: My [facility] [employer], Smoking Cessation Medications and DC Order Prescriptions: New prednisone 10 mg tablet 10 mg PO DIRECTED Qty: 42 0RF Rx Instructions: Please take 4 tablets by mouth for 3 days followed by 3 tablets by mouth for 5 days followed by 2 tablets by mouth for 5 days followed by 1 tablet by mouth for 5 days. Continued budesonide-formoterol 160-4.5 mcg/actuation HFA aerosol inhaler 2 puff inhalation BID Qty: 10.2 2RF levothyroxine 25 mcg tablet 25 mcg PO DAILYBB omeprazole 20 mg capsule,delayed release(DR/EC) 20 mg PO PM benazepril 40 mg tablet 40 mg PO QAM Hold Instructions: Resume on 11/05/24. until BP elevates or seen by PCP aspirin 81 mg Tablet,Delayed Release (Dr/Ec) 81 mg PO QAM Qty: 30 0RF atorvastatin 40 mg tablet 40 mg PO HS docusate sodium 100 mg capsule 100 mg PO PM PRN (Reason: Constipation) turmeric 400 mg Capsule 400 mg PO QAM albuterol sulfate 2.5 mg /3 mL (0.083 %) solution for nebulization 2.5 mg continuous nebulization DIRECTED PRN (Reason: Shortness Of Breath Or Wheezing) diclofenac potassium 50 mg tablet 50 mg PO TID PRN (Reason: Pain) vitamin B complex Tablet 1 tab PO DAILY nystatin [Klayesta] 100,000 unit/gram powder 1 applic TOPICAL BID PRN (Reason: fungal rash) Rx Instructions: under breast Centrum Adult 50 Plus 80 mcg Tablet,Chewable 1 tab PO DAILY albuterol sulfate 90 mcg/actuation HFA aerosol inhaler 2 puff INHALATION Q4H PRN (Reason: Shortness Of Breath Or Wheezing) ipratropium bromide 21 mcg (0.03 %) spray,non-aerosol 2 spray INTRANASAL BID metoprolol tartrate 25 mg Tablet 12.5 mg PO BID 30 Days Qty: 30 0RF bumetanide 0.5 mg tablet 0.5 mg PO AMPM metformin 1,000 mg tablet 1,000 mg PO BID Discontinued prednisone 50 mg tablet 50 mg PO QAM Rx Instructions: ordered for 5 days on 01/16/25 No Action (DME) Power Wheelchair Device See Rx Instructions .Route Qty: 1 0RF Rx Instructions: As directed (DME) Aerochamber MV Spacer See Rx Instructions .ROUTE .MEDSUPPLY Qty: 1 0RF Rx Instructions: As directed Discharge Orders: Discharge Order (Routine); Ordered 01/22/25 Ordered By: Rose Delgadillo Admission Data Admit Date/Time: 01/21/25 19:09 Attending Provider: Nirav Bustamante Admit Provider: Clive Church Primary Care Provider: Rhona Canales Other Providers: Clive Church Hospital Stay Data Consultations 01/21/25 18:01 ED Decision to Admit Stat Pending Results Patient Have Any Pending Studies at Discharge: No Discharge Instructions Given to Patient (Per Discharging Provider) Juan Ferrera were recently hospitalized for shortness of breath. Your workup was negative and this was thought to be related to an ongoing asthma exacerbation. After a dose of steroids your symptoms improved. Please see recommendations below regarding your discharge. Please complete a prednisone taper as prescribed to you. This will start tomorrow, 01/23. A referral to pulmonology has been placed. Their office will be in touch with you for an appointment. The remainder of your medications may be resumed. Please follow up with your PCP in 1-2 weeks of discharge for further care. Best of luck! Rose Delgadillo PA-C Total Time Total Time Spent Total Time Spent (In Minutes): 40 Total Time Includes: Examination of the Patient, Discharge Planning and Medication Reconciliation Coding Level of Care Code 28390 INP/OBS DISCH >30 MIN Diagnoses Asthma exacerbation J45.901 Asthma persistence: unspecified Asthma severity: mild
[2025-01-22 15:29] VITALS: PULSE 99
--- NOTE | 2025-01-24 09:45 | Electrocardiogram Report ---
Test Reason : Blood Pressure : */* mmHG Vent. Rate : 75 BPM Atrial Rate : 75 BPM P-R Int : 194 ms QRS Dur : 92 ms QT Int : 374 ms P-R-T Axes : 42 -21 11 degrees QTcB Int : 417 ms Sinus rhythm with marked sinus arrhythmia Minimal voltage criteria for LVH, may be normal variant ( R in aVL ) Cannot rule out Anterior infarct , age undetermined Abnormal ECG When compared with ECG of 15-Jan-2025 05:48, No significant change was found Confirmed by Samantha Herron ([id number]) on 01/24/2025 9:45:38 AM Referred By: REFERRED SELF Confirmed By: Samantha Herron
== END 2025-01-22 16:17 | disposition home or self-care (01) ==
LOC: 3W 16:25 → ED 16:25 → SUATTDRO 19:09 → 3W 20:17

== ENCOUNTER 2025-01-23 17:40 | Observation (INO) ==
[2025-01-23] MEDS: ALBUT/IPRATROP 3MG/0.5MG NEB 3 ML VIAL NEB STA ×2 (18:06→19:51)
[2025-01-23 18:53] LABS: Base Excess VBG -0.8 mEq/L; HCO3 VBG 25 mmol/L; Oxygen Saturation VBG < 60.0 %; PCO2 VBG 47 mmHg (38-50); PO2 VBG 35 mmHg; pH VBG 7.34 (7.36-7.41)
[2025-01-23 18:58] LABS: Hematocrit (blood only) 39.8 % (37.0-47.0); Hemoglobin 12.6 g/dl (12.0-16.0); Immature Granulocytes # (auto) 0.05 K/uL (0.01-0.20); Immature Granulocytes % (auto) 0.5 %; Mean Corpuscular Hemoglobin 30.1 pg (25.0-34.0); Mean Corpuscular Volume 95.2 fL (80.0-100.0); Platelet Count 183 K/uL (130-400); RDW Standard Deviation 61.3 fL (36.4-46.3); Red Blood Count 4.18 M/uL (4.20-5.40); White Blood Count 11.07 K/ul (4.8-10.8)
--- NOTE | 2025-01-23 19:05 | XRay Report ---
Chest radiograph, one view History: Chest pain Comparison: None Findings: Single AP view of the chest performed. No focal consolidation or pleural effusion. No pneumothorax. The cardiomediastinal silhouette is within normal limits. Normal pulmonary vascularity. No evidence for lymphadenopathy. No visualized bony or soft tissue abnormality. Impression: Normal chest radiograph Electronically signed by Nuno Arguello 01-23-2025 7:03 PM
[2025-01-23 19:16] LABS: Anion Gap 12.0 (3-11); Blood Urea Nitrogen 30.0 mg/dl (6-23); Calcium 10.1 mg/dl (8.6-10.3); Carbon Dioxide 26.0 mmol/L (21-32); Chloride 109.0 mmol/L (98-107); Creatinine Clr Calc Pharmacy 44.4 ml/min; Glucose 142.0 mg/dl (70-99(Fasting)); Lipase 77.0 U/L (11-82); Potassium 4.9 mmol/L (3.5-5.1); Sodium 147.0 mmol/L (136-145)
[2025-01-23 19:28] LABS: INR 1.0 (0.9-1.1); Partial Thromboplastin Time 27 Seconds (21-31); Prothrombin Time 10.9 Seconds (9.0-12.0)
--- NOTE | 2025-01-23 19:46 | Emergency Department Note ---
History of Present Illness General Chief Complaint: Shortness of Breath/Dyspnea Stated Complaint: SOB Time Seen by Provider: 01/23/25 17:49 History of Present Illness Provider Complaint: shortness of breath, cough and "asthma attack" Onset (ago): week(s) (2) Severity: similar to previous episodes Consistency/Duration: + progressively worsening Relieved By: + rest Exacerbated By: + exertion and + coughing Context: no recent travel Known history of: asthma Associated symptoms: + cough, + wheezing, + sputum production and + chest congestion; no chest pain, no orthopnea, no hemoptysis, no nausea/vomiting, no syncope or no rash Treatment prior to arrival: bronchodilator and other (Oral steroids) Home Medications Medication Instructions Recorded Confirmed Type benazepril 40 mg tablet 40 mg PO QAM 06/25/21 01/23/25 History levothyroxine 25 mcg tablet 25 mcg PO DAILYBB 06/25/21 01/23/25 History omeprazole 20 mg capsule,delayed 20 mg PO PM 06/25/21 01/23/25 History release aspirin 81 mg tablet,delayed 81 mg PO QAM #30 tabs 08/16/21 01/23/25 Rx release atorvastatin 40 mg tablet 40 mg PO HS 07/20/23 01/23/25 History docusate sodium 100 mg capsule 100 mg PO PM PRN Constipation 07/26/23 01/23/25 History turmeric 400 mg capsule 400 mg PO QAM 07/26/23 01/23/25 History albuterol sulfate 2.5 mg/3 mL 2.5 mg continuous nebulization 09/25/23 01/23/25 History (0.083 %) solution for nebulization DIRECTED PRN Shortness Of Breath Or Wheezing diclofenac potassium 50 mg tablet 50 mg PO TID PRN Pain 09/25/23 01/23/25 History vitamin B complex 1 tab PO DAILY 09/25/23 01/23/25 History Wheelchair (Powered) (Power #1 ea 11/05/23 01/21/25 Rx Wheelchair) multivitamin with minerals-folic 1 tab PO DAILY 12/01/23 01/23/25 History acid 80 mcg chewable tablet (Centrum Adult 50 Plus) nystatin 100,000 unit/gram topical 1 applic topical BID PRN fungal 12/01/23 01/23/25 History powder (Klayesta) rash budesonide-formoterol HFA 160 2 puff inhalation BID #10.2 grams 12/28/23 01/23/25 Rx mcg-4.5 mcg/actuation aerosol inhaler inhalational spacing device #1 ea 12/28/23 01/21/25 Rx (Aerochamber MV spacer) albuterol sulfate 90 mcg/actuation 2 puff inhalation Q4H PRN 01/14/25 01/23/25 History aerosol inhaler Shortness Of Breath Or Wheezing ipratropium bromide 21 mcg (0.03 2 spray intranasal BID 01/14/25 01/23/25 History %) nasal spray metoprolol tartrate 25 mg tablet 12.5 mg (1/2 x 25 mg) PO BID 30 01/16/25 01/23/25 Rx days #30 tabs bumetanide 0.5 mg tablet 0.5 mg PO AMPM 01/21/25 01/23/25 History metformin 1,000 mg tablet 1,000 mg PO BID 01/21/25 01/23/25 History prednisone 10 mg tablet 10 mg PO DIRECTED #42 tabs 01/22/25 01/23/25 Rx Allergies Allergy/AdvReac Type Severity Reaction Status Date / Time Fish Containing Products Allergy Intermediate ITCHY RASH Verified 01/23/25 19:57 shellfish derived Allergy Intermediate ITCHY RASH Verified 01/23/25 19:57 montelukast [From [facility]] Allergy Unknown CAN'T Verified 01/23/25 19:57 REMEMBER codeine AdvReac Mild NAUSEATED Verified 01/23/25 19:57 Past Med/Surg History Problem List (Updated 01/23/25 @ 19:46 by Harpal Valecnia MD) Cough (Acute) Asthma exacerbation (Acute) Shortness of breath (Acute) Elevated serum creatinine (Acute) Hypoxia (Acute) Respiratory difficulty (Acute) Candidal intertrigo (Acute) Weakness (Acute) Eosinophilic asthma Severe persistent allergic asthma Shortness of breath (Acute) Asthma exacerbation (Acute) Edema (Acute) Dyspnea on exertion History of UTI Thrush Yeast dermatitis (Acute) Generalized muscle weakness (Acute) Acute UTI (urinary tract infection) (Acute) Morbid obesity Ventral hernia Hypothyroidism Hypertension Hypomagnesemia (Acute) Diabetes Multiple sclerosis (Acute) UTI (urinary tract infection) (Acute) Abnormal finding on diagnostic imaging of left kidney Medical History Hypomagnesemia Hypothermia Hypomagnesemia Dyspnea Left-sided weakness DUNCAN (acute kidney injury) Brain TIA Acute respiratory failure with hypoxia Osteoarthritis of knees, bilateral Sinusitis, acute Morbid obesity with BMI of 50.0-59.9, adult Tachy-rowena syndrome GERD (gastroesophageal reflux disease) Hypothyroidism Pancreatitis Thrombocytopenia Peripheral edema Septic shock Hypomagnesemia Fungal dermatitis Asthma Hypertension Diabetes Influenza A Pneumonia Multiple sclerosis Surgical History H/O tubal ligation H/O sinus surgery History of arthroscopic knee surgery Hx of tonsillectomy H/O: hysterectomy No pertinent past surgical history Family History Other Family history non-contributory Social History Smoking Status: Never smoker Second Hand Exposure: No; Do You Dip or Chew Tobacco: No; Hx Alcohol Use: No Hx Substance Use: No Preferred Language: Vietnamese Communication Ability: Effective Seed Packer Required: No Beliefs That Will Affect Care: None marital status: Current Living Situation: Spouse Current Living Situation Comment: lives at home with spouse and grandaughter How many Children do You have: 2 Feels Safe at Home: Yes Diet: gluten free during the past year weight has: decreased > 10 lbs Assistive Devices: Wheelchair Physical Exam 2 Vital Signs: Vital Signs - 24 hr 01/23/25 17:44 01/23/25 18:01 01/23/25 18:05 Temperature 36.6 C Temperature Source Temporal Artery Sc an Pulse Rate 55 L 75 Pulse Rate [Apical ] Pulse Rate from Sp O2 Sensor Pulse Rhythm [Apic al] Pulse Strength [Ap ical] Respiratory Rate 18 Respiratory Effort / Characteristics Non-Labored Sponta neous Spontaneous Respiratory Depth Normal Respiratory Patter n Regular Blood Pressure 158/84 H Blood Pressure [Ri ght Arm] Blood Pressure Kaitlyn n 108 Blood Pressure Kaitlyn n [Right Arm] Blood Pressure Pos ition Sitting Blood Pressure Pos ition [Right Arm] Pulse Oximetry 95 Oxygen Delivery Me thod Room Air Sepsis Recent Feve r Within 48 Hours No Sepsis New/Unexpla ined Change in Men zenia Status N/A Sepsis Action Take n by Nursing No Action Required 01/23/25 18:52 07/13/25 18:52 01/23/25 18:52 Temperature Temperature Source Pulse Rate Pulse Rate [Apical ] 64 Pulse Rate from Sp O2 Sensor Pulse Rhythm [Apic al] Regular Pulse Strength [Ap ical] Normal Respiratory Rate 20 Respiratory Effort / Characteristics Non-Labored Sponta neous Non-Labored Sponta neous Respiratory Depth Normal Respiratory Patter n Regular Blood Pressure Blood Pressure [Ri ght Arm] 138/90 Blood Pressure Kaitlyn n Blood Pressure Kaitlyn n [Right Arm] 106 Blood Pressure Pos ition Blood Pressure Pos ition [Right Arm] Lying Pulse Oximetry 97 96 Oxygen Delivery Me thod Room Air Room Air Sepsis Recent Feve r Within 48 Hours Sepsis New/Unexpla ined Change in Men zenia Status Sepsis Action Take n by Nursing 01/23/25 20:00 01/23/25 20:00 Temperature Temperature Source Pulse Rate 61 64 Pulse Rate [Apical ] Pulse Rate from Sp O2 Sensor 63 Pulse Rhythm [Apic al] Pulse Strength [Ap ical] Respiratory Rate 18 18 Respiratory Effort / Characteristics Respiratory Depth Respiratory Patter n Blood Pressure 115/57 L Blood Pressure [Ri ght Arm] Blood Pressure Kaitlyn n 73 Blood Pressure Kaitlyn n [Right Arm] Blood Pressure Pos ition Blood Pressure Pos ition [Right Arm] Pulse Oximetry 94 96 Oxygen Delivery Me thod Sepsis Recent Feve r Within 48 Hours Sepsis New/Unexpla ined Change in Men zenia Status Sepsis Action Take n by Nursing Physical Exam: Physical Exam HENT: Exam performed. - Head: Normocephalic and atraumatic. EYES: Conjunctivae and EOM are normal. Right eye exhibits no discharge. Left eye exhibits no discharge. No scleral icterus. NECK: Normal range of motion. Neck supple. No JVD present. CV: Normal rate, regular rhythm, normal heart sounds and intact distal pulses. Palpable radial pulses bue. PULM/CHEST: Expiratory wheezes bilaterally. ABD: The abdomen is soft. There is no tenderness. Morbid obesity. NEURO: Motor and sensation grossly intact. SKIN: Skin is warm and dry. He is not diaphoretic. PSYCH: normal mood and affect. Behavior is normal. Judgment and thought content normal. Course Course 1748: The patient was evaluated in room C12. A complete history and physical exam was performed Cardiac monitoring: An order was placed for continuous cardiac monitoring. The monitor shows a rate of 60 with sinus rhythm interpreted by me 1942: Vital signs stable. Patient still reports she is feeling short of breath. Still wheezing. Patient given repeat DuoNebs and IV Solu-Medrol. Labs and imaging are unremarkable. Patient will be admitted to the [facility] team for asthma exacerbation. Administered Medications Discontinued Medications Albuterol (Albut/Ipratrop 3mg/0.5mg Neb 3 Ml Vial) 3 ml NEB NOW STA; Protocol Stop: 01/23/25 17:57 Last Admin: 01/23/25 18:06 Dose: 3 ml Documented By: RAJIV Albuterol (Albut/Ipratrop 3mg/0.5mg Neb 3 Ml Vial) 3 ml NEB NOW STA; Protocol Stop: 01/23/25 19:36 Last Admin: 01/23/25 19:51 Dose: 3 ml Documented By: RAYNA Methylprednisolone (Methylprednisolone 125 Mg/2 Ml Vial) 125 mg IV NOW STA Stop: 01/23/25 19:36 Last Admin: 01/23/25 19:51 Dose: 125 mg Documented By: RAYNA Medical Decision Making Medical Records Attestation: I reviewed the patient's medical records. External medical records reviewed. Patient was admitted to the hospital from January 13 to January 16, 2025. At that time she was admitted for asthma exacerbation. Patient was seen in the emergency department on January 21, 2025 and discharged on January 22, 2025 for asthma exacerbation. During that admission the patient's BioFire was negative. Laboratory Data Attestation: I reviewed the patient's lab results. 01/23/25 18:39 01/23/25 18:39 Lab Results 01/23/25 Range/Units 18:39 WBC 11.07 H (4.8-10.8) K/ul RBC 4.18 L (4.20-5.40) M/uL Hgb 12.6 (12.0-16.0) g/dl Hct 39.8 (37.0-47.0) % MCV 95.2 (80.0-100.0) fL MCH 30.1 (25.0-34.0) pg MCHC 31.7 L (32.0-36.0) g/dL RDW Std Deviation 61.3 H (36.4-46.3) fL RDW Coeff of Kaia 17.8 H (11.5-14.5) % Plt Count 183 (130-400) K/uL MPV 12.8 H (9.4-12.4) fL Immature Gran % (Auto) 0.5 % Neut % (Auto) 79.0 % Lymph % (Auto) 15.7 % Pickett % (Auto) 4.5 % Eos % (Auto) 0.2 % Baso % (Auto) 0.1 % Neut # (Auto) 8.75 H (1.40-6.50) K/uL Lymph # (Auto) 1.74 (1.20-3.40) K/uL Pickett # (Auto) 0.50 (0.11-0.59) K/uL Eos # (Auto) 0.02 (0.00-0.50) K/uL Baso # (Auto) 0.01 (0.00-0.20) K/uL Immature Gran # (Auto) 0.05 (0.01-0.20) K/uL PT 10.9 (9.0-12.0) Seconds INR 1.0 (0.9-1.1) APTT 27 (21-31) Seconds PTT Ratio 1.0 D-Dimer 400 (0-500) ug/L FEU VBG pH 7.34 L (7.36-7.41) VBG pCO2 47 (38-50) mmHg VBG pO2 35 mmHg VBG HCO3 25 mmol/L VBG O2 Saturation < 60.0 % VBG Base Excess -0.8 mEq/L Sodium 147 H (136-145) mmol/L Potassium 4.9 (3.5-5.1) mmol/L Chloride 109 H (98-107) mmol/L Carbon Dioxide 26 (21-32) mmol/L Anion Gap 12 H (3-11) BUN 30 H (6-23) mg/dl Creatinine 1.30 H (0.6-1.2) mg/dl Est Cr Clr Drug Dosing 44.4 ml/min eGFR 44.24 BUN/Creatinine Ratio 23.1 H (10-20) Glucose 142 H (70-99(Fasting)) mg/dl Calcium 10.1 (8.6-10.3) mg/dl Troponin I High Sens 3.4 (0-14) pg/ml B-Natriuretic Peptide 83 (0-100) pg/ml Lipase 77 (11-82) U/L Imaging Data Radiologist's Impression: Chest X-Ray 01/23/25 17:56 Chest radiograph, one view History: Chest pain Comparison: None Findings: Single AP view of the chest performed. No focal consolidation or pleural effusion. No pneumothorax. The cardiomediastinal silhouette is within normal limits. Normal pulmonary vascularity. No evidence for lymphadenopathy. No visualized bony or soft tissue abnormality. Impression: Normal chest radiograph Electronically signed by Nuno Arguello 01-23-2025 7:03 PM ECG Data Attestation: I personally reviewed and interpreted this ECG as follows: Interpretation: Sinus bradycardia with a rate of 56. VA 204 QRS [address] elevation or ST depression. First-degree AV block present. [facility] Narrative 1749: The patient was evaluated in room C12. A complete history and physical exam was performed Cardiac monitoring: An order was placed for continuous cardiac monitoring. The monitor shows a rate of 60 with sinus rhythm interpreted by me 194: Vital signs stable. Patient still reports she is feeling short of breath. Still wheezing. Patient given repeat DuoNebs and IV Solu-Medrol. Labs and imaging are unremarkable. Patient will be admitted to the [facility] hospitalist team for asthma exacerbation. Impression & Plan Asthma exacerbation Discharge Plan Visit Data Chief Complaint: Shortness of Breath/Dyspnea Stated Complaint: SOB ED Provider: Harpal Valencia Discharge Problem: Asthma exacerbation Patient Disposition: Being Evaluated by Hospitalist Condition: Fair Forms Stand Alone Forms: My [facility] Prescriptions Prescriptions: No Action (DME) Power Wheelchair Device See Rx Instructions .Route Qty: 1 0RF Rx Instructions: As directed budesonide-formoterol 160-4.5 mcg/actuation HFA aerosol inhaler 2 puff inhalation BID Qty: 10.2 2RF (DME) Aerochamber MV Spacer See Rx Instructions .ROUTE .MEDSUPPLY Qty: 1 0RF Rx Instructions: As directed levothyroxine 25 mcg tablet 25 mcg PO DAILYBB omeprazole 20 mg capsule,delayed release(DR/EC) 20 mg PO PM benazepril 40 mg tablet 40 mg PO QAM Hold Instructions: Resume on 11/05/24. until BP elevates or seen by PCP aspirin 81 mg Tablet,Delayed Release (Dr/Ec) 81 mg PO QAM Qty: 30 0RF atorvastatin 40 mg tablet 40 mg PO HS docusate sodium 100 mg capsule 100 mg PO PM PRN (Reason: Constipation) turmeric 400 mg Capsule 400 mg PO QAM albuterol sulfate 2.5 mg /3 mL (0.083 %) solution for nebulization 2.5 mg continuous nebulization DIRECTED PRN (Reason: Shortness Of Breath Or Wheezing) diclofenac potassium 50 mg tablet 50 mg PO TID PRN (Reason: Pain) vitamin B complex Tablet 1 tab PO DAILY nystatin [Klayesta] 100,000 unit/gram powder 1 applic TOPICAL BID PRN (Reason: fungal rash) Rx Instructions: under breast Centrum Adult 50 Plus 80 mcg Tablet,Chewable 1 tab PO DAILY albuterol sulfate 90 mcg/actuation HFA aerosol inhaler 2 puff INHALATION Q4H PRN (Reason: Shortness Of Breath Or Wheezing) ipratropium bromide 21 mcg (0.03 %) spray,non-aerosol 2 spray INTRANASAL BID metoprolol tartrate 25 mg Tablet 12.5 mg PO BID 30 Days Qty: 30 0RF bumetanide 0.5 mg tablet 0.5 mg PO AMPM metformin 1,000 mg tablet 1,000 mg PO BID prednisone 10 mg tablet 10 mg PO DIRECTED Qty: 42 0RF Rx Instructions: STARTED 01/23/25-----Please take 4 tablets by mouth for 3 days followed by 3 tablets by mouth for 5 days followed by 2 tablets by mouth for 5 days followed by 1 tablet by mouth for 5 days. Referrals Referrals: Rhona Canales [Primary Care Provider] -
--- NOTE | 2025-01-23 20:49 | History & Physical Report ---
Date of Service January 23, 2025 Assessment & Plan (1) Asthma exacerbation: (2) Hypotension: (3) Hypertension: (4) Hypothyroidism: Plan Pt is a 69 yo female who with a past med hx of asthma, hypothyroidism, DMT2, hx MS, and HTN who presents to the hospital for 01/23 for continued SOB and gurgling with two recent admissions this month for similar symptoms. #Asthma - has had 2 rounds of steroids recently, sent home on 01/22 with steroid taper - seems that pt feels better when here and then once home seems to get worse - SOB not worsening, CXR not obviously fluid overloaded, main concern for pt is gurgling in the throat - will continue steroid 40 mg po daily for 5 days - will do atypical coverage azithromycin, more for antiinflammatory - will do CTA to further eval lung tissue - hypertonic saline neb, flonase BID, mucinex, glycopyrrolate - PT/OT - continue home inhalers #Hypotension - relative hypotension on admission noted when in the room, 90s systolic - will hold home BP meds; benazepril and metoprolol for now, can readd as tolerated #Hypothyroidism - continue home levothyroxine - TSH checked at start of month abnormal, would recommend outpatient dose adjustment as appropriate #DMT2 - continue home metformin - last HA1c recently 6.7% - will do SSI, defer long acting for now Cr on admission 1.3 which may or may not be DUNCAN criteria, baseline appears to be 1.0-1.1. Will do 1L LR at 75/hr and recheck in the am. Continue home bumex but will hold ROGELIO. VTE ppx: lovenox, can switch to heparin if kidney function worsens History of Present Illness Chief Complaint: Gurgling Primary Care Provider: Rhona Canales Pt is a 69 yo female who with a past med hx of asthma, hypothyroidism, DMT2, hx MS, and HTN who presents to the hospital for 01/23 for continued SOB and gurgling. Pt was just admitted 01/21-01/22 for same symptoms/asthma exac. She states she felt okay at discharge and felt at that time she was ready to go home. She states when she got home she went to sleep for a few hours and noted continued symptoms of gurgling and ongoing shortness of breath. She states the SOB and gurgling started for her about 2-3 weeks ago. She states with the gurgling she is able to occasional cough up some mucus that is white sometimes and other times yellow-greenish. Denies chest pain or fevers. She states the SOB is not worsening, just persistent. She states that she took the steroid earlier today but states to me on admission that she took "4 pills in the morning and 4 pills in the afternoon." Allergies Allergy/AdvReac Type Severity Reaction Status Date / Time Fish Containing Products Allergy Intermediate ITCHY RASH Verified 01/23/25 19:57 shellfish derived Allergy Intermediate ITCHY RASH Verified 01/23/25 19:57 montelukast [From [facility]] Allergy Unknown CAN'T Verified 01/23/25 19:57 REMEMBER codeine AdvReac Mild NAUSEATED Verified 01/23/25 19:57 Home Medications Medication Instructions Recorded Confirmed Type benazepril 40 mg tablet 40 mg PO QAM 06/25/21 01/23/25 History levothyroxine 25 mcg tablet 25 mcg PO DAILYBB 06/25/21 01/23/25 History omeprazole 20 mg capsule,delayed 20 mg PO PM 06/25/21 01/23/25 History release aspirin 81 mg tablet,delayed 81 mg PO QAM #30 tabs 08/16/21 01/23/25 Rx release atorvastatin 40 mg tablet 40 mg PO HS 07/20/23 01/23/25 History docusate sodium 100 mg capsule 100 mg PO PM PRN Constipation 07/26/23 01/23/25 History turmeric 400 mg capsule 400 mg PO QAM 07/26/23 01/23/25 History albuterol sulfate 2.5 mg/3 mL 2.5 mg continuous nebulization 09/25/23 01/23/25 History (0.083 %) solution for nebulization DIRECTED PRN Shortness Of Breath Or Wheezing diclofenac potassium 50 mg tablet 50 mg PO TID PRN Pain 09/25/23 01/23/25 History vitamin B complex 1 tab PO DAILY 09/25/23 01/23/25 History Wheelchair (Powered) (Power #1 ea 11/05/23 01/21/25 Rx Wheelchair) multivitamin with minerals-folic 1 tab PO DAILY 12/01/23 01/23/25 History acid 80 mcg chewable tablet (Centrum Adult 50 Plus) nystatin 100,000 unit/gram topical 1 applic topical BID PRN fungal 12/01/23 01/23/25 History powder (Klayesta) rash budesonide-formoterol HFA 160 2 puff inhalation BID #10.2 grams 12/28/23 01/23/25 Rx mcg-4.5 mcg/actuation aerosol inhaler inhalational spacing device #1 ea 12/28/23 01/21/25 Rx (Aerochamber MV spacer) albuterol sulfate 90 mcg/actuation 2 puff inhalation Q4H PRN 01/14/25 01/23/25 History aerosol inhaler Shortness Of Breath Or Wheezing ipratropium bromide 21 mcg (0.03 2 spray intranasal BID 01/14/25 01/23/25 History %) nasal spray metoprolol tartrate 25 mg tablet 12.5 mg (1/2 x 25 mg) PO BID 30 01/16/25 01/23/25 Rx days #30 tabs bumetanide 0.5 mg tablet 0.5 mg PO AMPM 01/21/25 01/23/25 History metformin 1,000 mg tablet 1,000 mg PO BID 01/21/25 01/23/25 History prednisone 10 mg tablet 10 mg PO DIRECTED #42 tabs 01/22/25 01/23/25 Rx Past Med/Surg History Problem List (Updated 01/23/25 @ 21:34 by Argenis Traore DO) Hypotension Cough (Acute) Asthma exacerbation (Acute) Shortness of breath (Acute) Elevated serum creatinine (Acute) Hypoxia (Acute) Respiratory difficulty (Acute) Candidal intertrigo (Acute) Weakness (Acute) Eosinophilic asthma Severe persistent allergic asthma Shortness of breath (Acute) Asthma exacerbation (Acute) Edema (Acute) Dyspnea on exertion History of UTI Thrush Yeast dermatitis (Acute) Generalized muscle weakness (Acute) Acute UTI (urinary tract infection) (Acute) Morbid obesity Ventral hernia Hypothyroidism Hypertension Hypomagnesemia (Acute) Diabetes Multiple sclerosis (Acute) UTI (urinary tract infection) (Acute) Abnormal finding on diagnostic imaging of left kidney Medical History Hypomagnesemia Hypothermia Hypomagnesemia Dyspnea Left-sided weakness DUNCAN (acute kidney injury) Brain TIA Acute respiratory failure with hypoxia Osteoarthritis of knees, bilateral Sinusitis, acute Morbid obesity with BMI of 50.0-59.9, adult Tachy-rowena syndrome GERD (gastroesophageal reflux disease) Hypothyroidism Pancreatitis Thrombocytopenia Peripheral edema Septic shock Hypomagnesemia Fungal dermatitis Asthma Hypertension Diabetes Influenza A Pneumonia Multiple sclerosis Surgical History H/O tubal ligation H/O sinus surgery History of arthroscopic knee surgery Hx of tonsillectomy H/O: hysterectomy No pertinent past surgical history Family History Other Family history non-contributory Social History Smoking Status: Never smoker Second Hand Exposure: No; Do You Dip or Chew Tobacco: No; Hx Alcohol Use: No Hx Substance Use: No Preferred Language: Maltese Communication Ability: Effective Finisher Polisher Required: No Beliefs That Will Affect Care: None marital status: Current Living Situation: Spouse Current Living Situation Comment: lives at home with spouse and grandaughter How many Children do You have: 2 Feels Safe at Home: Yes Diet: gluten free during the past year weight has: decreased > 10 lbs Assistive Devices: Wheelchair Review of Systems Review of Systems: Per HPI. Physical Exam Physical Exam: General: Alert and oriented, no acute distress, quite pleasant HEENT: Normocephalic, notable amount of posterior oropharynx secretions Cardio: Regular rate and rhythm, Resp: Upper airway gurgling noted throughout conversations with pt, auscultation of lung bases with some rhonchi, upper lung collazo sound somewhat clear but with some wheezing but difficult to tell for certain given continued gurgling noise that seems to be coming from pt's posterior oropharynx GI: Soft and nontender, nondistended, bowel sounds active Skin: Warm, pink, dry, Results & Data Results & Data Vital Signs (Past 12 Hours) Vital Signs Temp Pulse Pulse Resp BP BP Pulse Ox 01/23/25 20:00 64 18 96 01/23/25 20:00 61 18 115/57 L 94 01/23/25 18:52 64 20 138/90 96 01/23/25 18:52 97 01/23/25 18:01 75 01/23/25 17:44 36.6 C 55 L 18 158/84 H 95 O2 Del Method 01/23/25 20:00 01/23/25 20:00 01/23/25 18:52 Room Air 01/23/25 18:52 Room Air 01/23/25 18:01 01/23/25 17:44 Room Air Supervising Physician Co-Signing Physician Notes Patient seen and examined, chart reviewed, case discussed with Dr. Traore and I agree with the assessment and plan as above Patient complaining of persistent shortness of breath. Has received 2 rounds of steroids. Patient mainly complaining of "gurgling" and phlegm/secretions in her upper chest On exam she has faint scattered end-expiratory wheezing, rhonchi Clear secretions in mouth Remainder of exam unremarkable Labs and images reviewed Assessment/Plan - excess secretions, "gurgling" leading to persistent SOB. Still with faint wheezing Possibly secondary to patient's underlying MS. She does not feel that she is currently having an MS flare -Continue Prednisone -Azithromycin -Hypertonic saline nebs, Flonase, Mucinex and Glycopyrrolate to help manage drooling -Gentle IVF -Maintain aspiration precautions, suction to bedside -Remainder as above Resident Activity Tracking Resident Involvement: Resident Care Provided Care Provided: Adult Hospital Medicine
[2025-01-23] MEDS: OPTIRAY 320 125ml IV ONE (22:05)
--- NOTE | 2025-01-23 23:09 | CT Scan Report ---
Exam(s): CTA CHEST IV Amt: OPTIRAY 320 119ML EXAM: CT Angiography Chest With Intravenous Contrast CLINICAL HISTORY: Reason for exam: PE. TECHNIQUE: Axial computed tomographic angiography images of the chest with intravenous contrast. CTDI is 28.14 mGy and DLP is 887 mGy-cm. Automated exposure control was utilized for the study. A dose lowering technique was utilized adhering to the principles of ALARA. MIP reconstructed images were created and reviewed. COMPARISON: 12/02/2023 FINDINGS: Pulmonary arteries: Adequate pulmonary artery opacification. Normal caliber of the main pulmonary artery. No evidence of acute pulmonary embolism. Aorta: Thoracic aortic atherosclerosis without aneurysm or dissection. Other arteries: Stable 12 mm calcified splenic artery aneurysm. Lungs: Subsegmental atelectasis in the lower lobes, bpsj-[id number]-[id number]- right. No consolidation or mass. Pleural space: No significant effusion. No pneumothorax. Heart: No cardiomegaly. No significant pericardial effusion. Bones/joints: Increased thoracic kyphosis. No acute fracture. No dislocation. Soft tissues: Unremarkable. Lymph nodes: No enlarged lymph nodes. Gallbladder and bile ducts: Cholecystectomy. IMPRESSION: No evidence of acute pulmonary embolism. Electronically signed by: Italo Dalal M.D. 01/23/25 23:09 PM
[2025-01-23] MEDS ORDERED: DEXTROSE 50% 50 ML SYRINGE IV PRN (23:20)
[2025-01-23] MEDS ORDERED: GLUCOSE 10 TAB/TUBE PO PRN (23:20)
[2025-01-23] MEDS ORDERED: GLUCAGON FOR INJ 1 MG VIAL SQ PRN (23:20)
[2025-01-23] MEDS ORDERED: ACETAMINOPHEN 325 MG TAB PO PRN (23:20)
[2025-01-23] MEDS ORDERED: GLUCOSE 40% GEL 15 GM TUBE PO PRN (23:20)
[2025-01-23] MEDS ORDERED: SODIUM CHLOR 7% 4 ML NEB NEB PRN (23:20)
[2025-01-23] MEDS ORDERED: MELATONIN 3 MG TAB PO PRN (23:20)
[2025-01-23] MEDS ORDERED: POLYETHYLENE (MIRALAX) 17 GM PACK PO PRN (23:20)
[2025-01-23] MEDS ORDERED: NYSTATIN POWDER 15GM BTL EXT PRN (23:20)
[2025-01-23] MEDS ORDERED: ONDANSETRON INJ 2 MG/ML 2 ML VIAL IV PRN (23:20)
[2025-01-23] MEDS ORDERED: CARBOHYDRATES FOR HYPOGLYCEMIA PO PRN (23:20)
[2025-01-23] MEDS: AZITHROMYCIN 250 MG TAB PO SCH (23:58)
[2025-01-23] MEDS: LACTATED RINGER'S 1,000 ML IV SCH (23:58)
[2025-01-24] MEDS: BUMETANIDE 1 MG TAB PO SCH (01:08)
[2025-01-24] MEDS: GLYCOPYRROLATE 1 MG TAB PO SCH (01:08)
[2025-01-24] MEDS: FLUTICASONE PROPIONATE NA SPR 16 GM BTL SCH (01:09)
[2025-01-24] MEDS: ENOXAPARIN INJ 40 MG/0.4 ML SYR SQ SCH (01:09)
--- NOTE | 2025-01-24 01:51 | Billing Data ---
Date of Service January 23, 2025 Coding Level of Care Code 72582 INT INP/OBS CARE
[2025-01-24 05:09] LABS: Hematocrit (blood only) 35.9 % (37.0-47.0); Hemoglobin 11.3 g/dl (12.0-16.0); Immature Granulocytes # (auto) 0.04 K/uL (0.01-0.20); Immature Granulocytes % (auto) 0.5 %; Mean Corpuscular Hemoglobin 30.0 pg (25.0-34.0); Mean Corpuscular Volume 95.2 fL (80.0-100.0); Platelet Count 142 K/uL (130-400); RDW Standard Deviation 60.3 fL (36.4-46.3); Red Blood Count 3.77 M/uL (4.20-5.40); White Blood Count 8.41 K/ul (4.8-10.8)
[2025-01-24 05:25] LABS: Alanine Aminotransferase 37.0 U/L (7-52); Albumin Globulin Ratio 1.0 (0.9-2); Alkaline Phosphatase 100.0 U/L (34-104); Anion Gap 9.0 (3-11); Bilirubin,Total 0.4 mg/dl (0.2-1.0); Blood Urea Nitrogen 34.0 mg/dl (6-23); Calcium 9.6 mg/dl (8.6-10.3); Carbon Dioxide 26.0 mmol/L (21-32); Chloride 107.0 mmol/L (98-107); Creatinine Clr Calc Pharmacy 50.1 ml/min; Globulin 3.4 gm/dl (2.5-4.0); Glucose 195.0 mg/dl (70-99(Fasting)); Potassium 4.4 mmol/L (3.5-5.1); Sodium 142.0 mmol/L (136-145); Total Protein 6.7 gm/dl (6.0-8.3)
[2025-01-24] MEDS: LEVOTHYROXINE SODIUM 25 MCG TABLET PO SCH (06:29)
[2025-01-24] MEDS: INSULIN ASPART PER UNIT CHARGE SC SCH (08:32)
[2025-01-24] MEDS: predniSONE 20 MG TAB PO SCH (08:33)
[2025-01-24] MEDS: FLUTICASONE/VILANTEROL 100/25MCG 14 PUFFS/INHALER INH SCH (08:33)
[2025-01-24] MEDS: ASPIRIN 81 MG ECTAB PO SCH (08:34)
[2025-01-24] MEDS: guaiFENesin 600 MG TABCR PO SCH (08:34)
--- NOTE | 2025-01-24 11:12 | Electrocardiogram Report ---
Test Reason : Blood Pressure : */* mmHG Vent. Rate : 56 BPM Atrial Rate : 56 BPM P-R Int : 204 ms QRS Dur : 92 ms QT Int : 438 ms P-R-T Axes : 68 -20 34 degrees QTcB Int : 422 ms Sinus bradycardia Otherwise normal ECG When compared with ECG of 21-Jan-2025 16:36, (unconfirmed) No significant change was found Confirmed by Vernon Sullivan ([id number]) on 01/24/2025 11:12:18 AM Referred By: Confirmed By: Vernon Sullivan
--- NOTE | 2025-01-24 12:26 | Pulmonary Consultation ---
Date of Consultation January 24, 2025 Assessment & Plan (1) Hypoxia: (2) Asthma exacerbation: Asthma persistence: persistent Asthma severity: severe Qualified Code(s): J45.51 - Severe persistent asthma with (acute) exacerbation (3) Cough: Cough type: unspecified Qualified Code(s): R05.9 - Cough, unspecified (4) Morbid obesity: (5) Atelectasis: Plan Dali Smyth is a 69-year-old female with past medical history of asthma, multiple sclerosis, diabetes mellitus, GERD, morbid obesity, tachy-rowena syndrome, and TIA; who is presenting back to [facility] ED 24hrs after discharge for acute asthma exacerbation now again with worsening shortness of breath. Hypoxia; Asthma exacerbation -Patient does not wear oxygen at home. SpO2 on admission 88-90%. Currently 94% on 2L NC. -Continue prednisone 40mg for total of 5 days. Would discontinue as soon as possible due to risk of myopathy and fluid retention. -Continue Breo inhaler while inpatient. On Symbicort at home. Start Incruse daily and should be continued once discharged. -Continue PRN albuterol. -Can stop azithromycin as low likelihood of bacterial infection -Would recommend follow up with pulmonary in clinic after discharge. -Important to get allergy Dr. Farris reengaged as patient would greatly benefit from biologic therapy such as Dupixent. -Inhaler compliance importance discussed. Cough -Can continue 7% nebs and fluticasone spray. Morbid obesity; atelectasis -BMI 45.75 with comorbidities. Discussed importance of being active and maintaining a healthy weight. -Can consider outpatient work up for OPAL/OHS. STOP BANG score 4. Would recommend outpatient polysomnography. -ISB q1h [place] -Cont Mucinex Thank you for allowing us to participate in this patient's care. Please call with question or concerns. Supervising Physician Co-Signing Physician Notes Patient seen and examined. EMR reviewed. Discussed with the patient and spouse at bedside as well as with nurse practitioner and agree with assessment plan as noted. 69-year-old female presenting with shortness of breath. ALTE factorial due to morbid obesity, sedentary lifestyle, deconditioning, as well as asthma. She is not bronchospastic currently. Agree with transition to oral steroids. Add Incruse or Spiriva at discharge. She will need to follow-up with allergy immunology in the outpatient setting as she was previously scheduled undergo Dupixent injections which would likely be markedly beneficial with regards to her obstructive lung disease. Exercise and weight loss were recommended. Disposition per primary service but the patient appears to be responding appropriately. If she remains in the hospital we will check on her in the morning to ensure she is responding favorably. Feel free to contact us with questions or concerns History of Present Illness Reason for Consultation: Asthma Exacerbation Attending Physician: Nirav Bustamante History of Present Illness Dali Smyth is a 69-year-old female with past medical history of asthma, multiple sclerosis, diabetes mellitus, GERD, morbid obesity, tachy-rowena syndrome, and TIA; who is presenting back 24hrs after discharge for acute asthma exacerbation now with worsening shortness of breath. Of note this is the patient's third admission since the beginning of January with shortness of breath and hypoxia. Patient is followed in the pulmonary clinic by Dr. Barroso for Th2 asthma. Patient was recommend to see soda worker due to elevated total IgE Level 5691 kU/L and absolute Eosinophil Count of > 300cells/uL. Dr. Farris seen the patient in 01/2024 and recommended Dupixent but unfortunately due to unknown reasons has not been taking it. Patient states she was feeling good when she went home on 01/22/2025 but within 24hrs developed shortness of breath and "gurgling". Patient brought back to the ED where CTA chest showed no PE and bilateral atelectasis. CXR showed no acute cardiopulmonary findings. Patient admitted to the Hospitalist service and Pulmonary consulted for recommendations of recurrent hypoxia and shortness of breath with concern for asthma exacerbation. RAST panel in 2023 showed sensitizations to tree, weed, grass, dog, cat, dust mite, cockroach, and mold. Patient does have a dog and a cat living with her currently. Patient states she is compliant with her Symbicort but has not needed or used her albuterol inhaler in a long time. Denies fevers, chills, or night sweats. States that heat causes her breathing to be worse. Allergies Allergy/AdvReac Type Severity Reaction Status Date / Time Fish Containing Products Allergy Intermediate ITCHY RASH Verified 01/23/25 19:57 shellfish derived Allergy Intermediate ITCHY RASH Verified 01/23/25 19:57 montelukast [From Singulair] Allergy Unknown CAN'T Verified 01/23/25 19:57 REMEMBER codeine AdvReac Mild NAUSEATED Verified 01/23/25 19:57 Home Medications Medication Instructions Recorded Confirmed Type benazepril 40 mg tablet 40 mg PO QAM 06/25/21 01/23/25 History levothyroxine 25 mcg tablet 25 mcg PO DAILYBB 06/25/21 01/23/25 History omeprazole 20 mg capsule,delayed 20 mg PO PM 06/25/21 01/23/25 History release aspirin 81 mg tablet,delayed 81 mg PO QAM #30 tabs 08/16/21 01/23/25 Rx release atorvastatin 40 mg tablet 40 mg PO HS 07/20/23 01/23/25 History docusate sodium 100 mg capsule 100 mg PO PM PRN Constipation 07/26/23 01/23/25 History turmeric 400 mg capsule 400 mg PO QAM 07/26/23 01/23/25 History albuterol sulfate 2.5 mg/3 mL 2.5 mg continuous nebulization 09/25/23 01/23/25 History (0.083 %) solution for nebulization DIRECTED PRN Shortness Of Breath Or Wheezing diclofenac potassium 50 mg tablet 50 mg PO TID PRN Pain 09/25/23 01/23/25 History vitamin B complex 1 tab PO DAILY 09/25/23 01/23/25 History Wheelchair (Powered) (Power #1 ea 11/05/23 01/21/25 Rx Wheelchair) multivitamin with minerals-folic 1 tab PO DAILY 12/01/23 01/23/25 History acid 80 mcg chewable tablet (Centrum Adult 50 Plus) nystatin 100,000 unit/gram topical 1 applic topical BID PRN fungal 12/01/23 01/23/25 History powder (Klayesta) rash budesonide-formoterol HFA 160 2 puff inhalation BID #10.2 grams 12/28/23 01/23/25 Rx mcg-4.5 mcg/actuation aerosol inhaler inhalational spacing device #1 ea 12/28/23 01/21/25 Rx (Aerochamber MV spacer) albuterol sulfate 90 mcg/actuation 2 puff inhalation Q4H PRN 01/14/25 01/23/25 History aerosol inhaler Shortness Of Breath Or Wheezing ipratropium bromide 21 mcg (0.03 2 spray intranasal BID 01/14/25 01/23/25 History %) nasal spray metoprolol tartrate 25 mg tablet 12.5 mg (1/2 x 25 mg) PO BID 30 01/16/25 01/23/25 Rx days #30 tabs bumetanide 0.5 mg tablet 0.5 mg PO AMPM 01/21/25 01/23/25 History metformin 1,000 mg tablet 1,000 mg PO BID 01/21/25 01/23/25 History prednisone 10 mg tablet 10 mg PO DIRECTED #42 tabs 01/22/25 01/23/25 Rx Patient History Medical History Hypomagnesemia Hypothermia Hypomagnesemia Dyspnea Left-sided weakness DUNCAN (acute kidney injury) Brain TIA Acute respiratory failure with hypoxia Osteoarthritis of knees, bilateral Sinusitis, acute Morbid obesity with BMI of 50.0-59.9, adult Tachy-rowena syndrome GERD (gastroesophageal reflux disease) Hypothyroidism Pancreatitis Thrombocytopenia Peripheral edema Septic shock Hypomagnesemia Fungal dermatitis Asthma Hypertension Diabetes Influenza A Pneumonia Multiple sclerosis Surgical History H/O tubal ligation H/O sinus surgery History of arthroscopic knee surgery Hx of tonsillectomy H/O: hysterectomy No pertinent past surgical history Family History Other Family history non-contributory Social History Smoking Status: Never smoker Second Hand Exposure: No; Do You Dip or Chew Tobacco: No; Hx Alcohol Use: No Hx Substance Use: No Preferred Language: Slovenian Communication Ability: Effective Personnel Clerk Required: No Beliefs That Will Affect Care: None marital status: Current Living Situation: Spouse Current Living Situation Comment: Lives at home with spouse and granddaughter How many Children do You have: 2 Feels Safe at Home: Yes Diet: gluten free during the past year weight has: decreased > 10 lbs Assistive Devices: Walker and Wheelchair Review of Systems 2 Review of Systems: All systems reviewed & are unremarkable except as noted in HPI & below Physical Exam 2 Physical Exam: VITALS: Reviewed. WEIGHT/BMI reviewed. GEN: Age appearing, well-developed, NAD. PSYCH: Good Judgment. AOx3. Normal memory, mood, and affect. HEENT -Head: NC/AT; -Eyes: PERRL, EOMI. No discharge or redn ess; -Ears: External ears are normal. Normal TMs. -Nose: Normal nares. -Mouth and throat: MMM. Normal gums, muc opal, palate,. Good dentition. NECK: Supple, with no masses. CV: RRR, no m/r/g. LUNGS: CTAB, no w/r/c. ABD: Soft, NT/ND, NBS, no masses or organomegaly. : Deferred. SKIN: Warm, well perfused. No skin rashes or abnormal lesions. MSK: No deformities. EXT: No clubbing, cyanosis, or edema. NEURO: Normal muscle strength and tone. No focal deficits. Results & Data Results & Data Vital Signs (Past 12 Hours) Vital Signs Temp Pulse Pulse Resp BP Pulse Ox O2 Del Method 01/24/25 11:30 36.6 C 100 H 20 145/55 H 94 Nasal Cannula 01/24/25 09:29 Nasal Cannula 01/24/25 09:28 36.4 C L 95 H 22 99/62 L 93 Nasal Cannula 01/24/25 08:42 36.4 C L 98 H 21 93/54 L 92 Nasal Cannula 01/24/25 07:12 60 01/24/25 07:09 36.4 C L 67 01/24/25 07:07 59 L 17 97/55 L 94 Nasal Cannula 01/24/25 04:41 34.5 C L 01/24/25 04:08 34.5 C L 52 L 16 110/61 96 Nasal Cannula 01/24/25 01:29 45 L O2 Flow Rate 01/24/25 11:30 2 01/24/25 09:29 2 01/24/25 09:28 2 01/24/25 08:42 2 01/24/25 07:12 01/24/25 07:09 01/24/25 07:07 2 01/24/25 04:41 01/24/25 04:08 2 01/24/25 01:29 Laboratory Results 01/24/25 04:43 01/24/25 04:43 Abnormal Lab Results 07/13/25 07/14/25 07/14/25 18:39 04:43 07:26 WBC 11.07 H 8.41 RBC 4.18 L 3.77 L Hgb 12.6 11.3 L Hct 39.8 35.9 L MCV 95.2 95.2 MCH 30.1 30.0 MCHC 31.7 L 31.5 L RDW Std Deviation 61.3 H 60.3 H RDW Coeff of Kaia 17.8 H 17.4 H Plt Count 183 142 MPV 12.8 H 13.0 H Immature Gran % (Auto) 0.5 0.5 Neut % (Auto) 79.0 84.3 Lymph % (Auto) 15.7 13.4 [place] % (Auto) 4.5 1.8 Eos % (Auto) 0.2 0.0 Baso % (Auto) 0.1 0.0 Neut # (Auto) 8.75 H 7.09 H Lymph # (Auto) 1.74 1.13 L [place] # (Auto) 0.50 0.15 Eos # (Auto) 0.02 0.00 Baso # (Auto) 0.01 0.00 Immature Gran # (Auto) 0.05 0.04 PT 10.9 INR 1.0 APTT 27 PTT Ratio 1.0 D-Dimer 400 VBG pH 7.34 L VBG pCO2 47 VBG pO2 35 VBG HCO3 25 VBG O2 Saturation < 60.0 VBG Base Excess -0.8 Sodium 147 H 142 Potassium 4.9 4.4 Chloride 109 H 107 Carbon Dioxide 26 26 Anion Gap 12 H 9 BUN 30 H 34 H Creatinine 1.30 H 1.15 Est Cr Clr Drug Dosing 44.4 50.1 eGFR 44.24 51.25 BUN/Creatinine Ratio 23.1 H 29.6 H Glucose 142 H 195 H POC Glucose 171 H Calcium 10.1 9.6 Total Bilirubin 0.4 AST 16 ALT 37 Alkaline Phosphatase 100 Troponin I High Sens 3.4 B-Natriuretic Peptide 83 Total Protein 6.7 Albumin 3.3 L Globulin 3.4 Albumin/Globulin Ratio 1.0 Lipase 77 01/24/25 11:24 WBC RBC Hgb Hct MCV MCH MCHC RDW Std Deviation RDW Coeff of Kaia Plt Count MPV Immature Gran % (Auto) Neut % (Auto) Lymph % (Auto) [place] % (Auto) Eos % (Auto) Baso % (Auto) Neut # (Auto) Lymph # (Auto) [place] # (Auto) Eos # (Auto) Baso # (Auto) Immature Gran # (Auto) PT INR APTT PTT Ratio D-Dimer VBG pH VBG pCO2 VBG pO2 VBG HCO3 VBG O2 Saturation VBG Base Excess Sodium Potassium Chloride Carbon Dioxide Anion Gap BUN Creatinine Est Cr Clr Drug Dosing eGFR BUN/Creatinine Ratio Glucose POC Glucose 197 H Calcium Total Bilirubin AST ALT Alkaline Phosphatase Troponin I High Sens B-Natriuretic Peptide Total Protein Albumin Globulin Albumin/Globulin Ratio Lipase Diagnostic Findings Chest X-Ray 01/23/25 17:56 Chest radiograph, one view History: Chest pain Comparison: None Findings: Single AP view of the chest performed. No focal consolidation or pleural effusion. No pneumothorax. The cardiomediastinal silhouette is within normal limits. Normal pulmonary vascularity. No evidence for lymphadenopathy. No visualized bony or soft tissue abnormality. Impression: Normal chest radiograph Electronically signed by Nuno Arguello 01-23-2025 7:03 PM Chest CTA 01/23/25 21:02 Exam(s): CTA CHEST IV Amt: OPTIRAY 320 119ML EXAM: CT Angiography Chest With Intravenous Contrast CLINICAL HISTORY: Reason for exam: PE. TECHNIQUE: Axial computed tomographic angiography images of the chest with intravenous contrast. CTDI is 28.14 mGy and DLP is 887 mGy-cm. Automated exposure control was utilized for the study. A dose lowering technique was utilized adhering to the principles of ALARA. MIP reconstructed images were created and reviewed. COMPARISON: 12/02/2023 FINDINGS: Pulmonary arteries: Adequate pulmonary artery opacification. Normal caliber of the main pulmonary artery. No evidence of acute pulmonary embolism. Aorta: Thoracic aortic atherosclerosis without aneurysm or dissection. Other arteries: Stable 12 mm calcified splenic artery aneurysm. Lungs: Subsegmental atelectasis in the lower lobes, [id number]- right. No consolidation or mass. Pleural space: No significant effusion. No pneumothorax. Heart: No cardiomegaly. No significant pericardial effusion. Bones/joints: Increased thoracic kyphosis. No acute fracture. No dislocation. Soft tissues: Unremarkable. Lymph nodes: No enlarged lymph nodes. Gallbladder and bile ducts: Cholecystectomy. IMPRESSION: No evidence of acute pulmonary embolism. Electronically signed by: Italo Dalal M.D. 01/23/25 23:09 PM PG Care Time/CCT Total # of Minutes Spent Total Time Spent with Patient: Total time spent is greater than 50% in coordination of care (as documented) at patient's floor/unit and/or counseling patient: Coding Level of Care Code 62380 INT INP/OBS CARE MIN Diagnoses Hypoxia R09.02 Severe persistent asthma with exacerbation J45.51 Asthma persistence: persistent Asthma severity: severe Cough R05.9 Cough type: unspecified Morbid obesity E66.01 Atelectasis J98.11
--- NOTE | 2025-01-24 13:30 | Hospitalist Progress Note ---
Date of Service January 24, 2025 Assessment & Plan (1) Asthma exacerbation: (2) Hypotension: (3) Hypertension: (4) Hypothyroidism: Plan Pt is a 69 yo female who with a past med hx of asthma, hypothyroidism, DMT2, hx MS, and HTN who presents to the hospital on 01/23 for continued SOB and gurgling with two recent admissions this month for similar symptoms. She reportedly improves throughout her hospitalization but upon returning home she worsens despite being compliant with her regimen. She notes on admission that her dyspnea is not worsening just persisting, and she has "gurgling in the throat." CXR and chest CTA unremarkable for acute processes. She was admitted for treatment of her asthma exacerbation. She does not wear supplemental O2 at home, but has needed it since admission to maintain her O2 sat. #Asthma - Pulmonology consulted given multiple readmissions for asthma exacerbations - Continue prednisone 40 mg p.o. daily x 5 days. Would discontinue as soon as possible due to risk of myopathy and fluid retention - Continue Breo inhaler while inpatient (on Symbicort at home), albuterol as needed - Start Incruse daily and should be continued on discharge - Continue hypertonic saline neb, Flonase BID, Mucinex, glycopyrrolate, ISB Q 1HWA - Azithromycin discontinued given low likelihood of bacterial infection - Sputum culture from 01/22 with Pseudomonas aeruginosa, sensitivities pending - No pneumonia noted on CXR, but Zosyn IV was started given symptoms - Infectious disease consulted per recommendation from antimicrobial stewardship pharmacist - Continue supplemental O2 as needed - Follow-up with pulmonology clinic after discharge - Follow-up with destination imagination coordinator Dr. Farris to begin biologic therapy such as Dupixent #Class III obesity - BMI 46.1 - Recommend outpatient polysomnography to evaluate for underlying OPAL/OHS - Recommend significant weight loss #Hypotension - relative hypotension on admission at 90s systolic. BP today 01/24 still soft - Continue to hold benazepril and metoprolol for now. Monitor BP and resume when appropriate - Renal function now at baseline following 1 L LR on admission #Hypothyroidism - continue home levothyroxine - TSH checked at start of month abnormal, would recommend outpatient dose adjustment as appropriate #DMT2 - continue home metformin - last HA1c recently 6.7% - will do SSI, defer long acting for now VTE ppx: lovenox, can switch to heparin if kidney function worsens Dispo: Pending PT/OT evaluations and improvement in respiratory status Discussed case with pharmacy Consulted ID Consulted pulm Started IV Zosyn Admission and Anticipated Discharge Date Admission Date: January 23, 2025 Subjective Patient seen and evaluated at bedside. She reports feeling slightly better than yesterday but remains short of breath. She denies difficulty breathing, just reporting shortness of breath. She explains that she improves when hospitalized but after she is discharged, she worsens at home despite being compliant with her regimen. Informed her that I consulted pulmonology for further recommendations since multiple readmissions for asthma exacerbations. She was lethargic throughout my visit; she reports feeling "sleepy." No additional complaints or concerns at this time. Physical Exam Physical Exam: General: Lethargic but no acute distress, nondiaphoretic. Class III obesity. Cardiac: Regular rate and rhythm without murmurs gallops or rubs. Pulm: Diminished breath sounds throughout with rhonchi on expiration. No wheezing or rales noted. No dyspnea noted. 96% on 2 L NC. Abdominal: Soft, nontender, nondistended. Bowel sounds present. Neuro: A&O x3. No focal neurological deficits. Results & Data Results & Data Vital Signs (Past 12 Hours) Vital Signs Temp Pulse Pulse Resp BP Pulse Ox O2 Del Method 01/24/25 12:33 80 20 120/66 94 Nasal Cannula 01/24/25 11:30 97.9 F 100 H 20 145/55 H 94 Nasal Cannula 01/24/25 09:29 Nasal Cannula 01/24/25 09:28 97.5 F L 95 H 22 99/62 L 93 Nasal Cannula 01/24/25 08:42 97.5 F L 98 H 21 93/54 L 92 Nasal Cannula 01/24/25 07:12 60 01/24/25 07:09 97.5 F L 67 01/24/25 07:07 59 L 17 97/55 L 94 Nasal Cannula 01/24/25 04:41 94.1 F L 01/24/25 04:08 94.1 F L 52 L 16 110/61 96 Nasal Cannula 01/24/25 01:29 45 L O2 Flow Rate 01/24/25 12:33 2 01/24/25 11:30 2 01/24/25 09:29 2 01/24/25 09:28 2 01/24/25 08:42 2 01/24/25 07:12 01/24/25 07:09 01/24/25 07:07 2 01/24/25 04:41 01/24/25 04:08 2 01/24/25 01:29 Laboratory Results Reviewed CBC with differential Reviewed CMP, chemistries Reviewed sputum culture Diagnostic Findings Reviewed CXR, chest CTA, EKG PG Care Time/CCT Total # of Minutes Spent Total Time Spent with Patient: Total time spent is greater than 50% in coordination of care (as documented) at patient's floor/unit and/or counseling patient: Coding Level of Care Code 45485 SUB INP/OBS CARE 3/50MIN Diagnoses Severe persistent asthma with exacerbation J45.51 Asthma persistence: persistent Asthma severity: severe Hypotension I95.9 Hypertension I10 Hypothyroidism E03.9 (1) Asthma exacerbation Asthma persistence: persistent Asthma severity: severe Qualified Code(s): J45.51 - Severe persistent asthma with (acute) exacerbation
[2025-01-24] MEDS: UMECLIDINIUM BROMIDE 62.5MCG/BLISTER 7 PUFFS/INHALER INH SCH (14:04)
[2025-01-24] MEDS: 4.5GM X1 IV STA (16:04)
[2025-01-24] MEDS: 4.5GM EXT INFUSION IV SCH (20:32)
[2025-01-24] MEDS: ALBUTEROL 0.083% NEBU SOLN 3 ML VIAL NEB PRN (21:53)
[2025-01-25 07:35] LABS: Hematocrit (blood only) 33.4 % (37.0-47.0); Hemoglobin 10.5 g/dl (12.0-16.0); Immature Granulocytes # (auto) 0.03 K/uL (0.01-0.20); Immature Granulocytes % (auto) 0.3 %; Mean Corpuscular Hemoglobin 29.9 pg (25.0-34.0); Mean Corpuscular Volume 95.2 fL (80.0-100.0); Platelet Count 145 K/uL (130-400); RDW Standard Deviation 60.9 fL (36.4-46.3); Red Blood Count 3.51 M/uL (4.20-5.40); White Blood Count 10.48 K/ul (4.8-10.8)
--- NOTE | 2025-01-25 07:52 | Pulmonology Progress Note ---
Date of Service January 25, 2025 Assessment & Plan (1) Hypoxia: (2) Asthma exacerbation: Asthma persistence: persistent Asthma severity: severe Qualified Code(s): J45.51 - Severe persistent asthma with (acute) exacerbation (3) Cough: Cough type: unspecified Qualified Code(s): R05.9 - Cough, unspecified (4) Morbid obesity: (5) Atelectasis: Plan Impression: Dali Smyth is a 69-year-old female with past medical history of asthma, multiple sclerosis, diabetes mellitus, GERD, morbid obesity, tachy-rowena syndrome, and TIA; who is presenting back to [facility] ED 24hrs after discharge for acute asthma exacerbation now again with worsening shortness of breath. Recommendations: 1. Dyspnea: Likely multifactorial. I am not convinced that asthma is the predominant issue with her shortness of breath. Morbid obesity, restrictive lung disease, and deconditioning all are likely playing a role. 2. Asthma: Patient no longer demonstrates bronchospasm. She is not wheezing and feels her breathing is comfortable. Would recommend 5 days of prednisone. Continue Breo (can transition back to Symbicort going home). Would continue Incruse. Case management should get the patient a follow-up appointment with allergy immunology for consideration of Dupixent as noted in prior allergy notes from 1 year ago. 3. 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 White blood cell count is normal and she has been afebrile. Colonization is more likely exacerbated by the fact the patient has been placed on steroids frequently. She is currently receiving Zosyn and azithromycin. ID consultation has been requested and will defer antibiotics to them but from my perspective, the patient likely does not need antibiotics from a pulmonary perspective. 4. Hypoxemia: Secondary to atelectasis and hypercarbia. Continue incentive spirometry and flutter valve. Out of bed to chair as tolerated. Wean oxygen as tolerated. The patient may require supplemental oxygen at discharge. Outpatient polysomnography is recommended. Patient will require follow-up in the outpatient setting with Dr. sweet and Dr. grider. Will continue to follow with you. Admission and Anticipated Discharge Date Admission Date: January 23, 2025 Subjective Patient seen and examined. EMR reviewed. The patient sleeping comfortably. When awakened, she reports no issues. She states her breathing is good. She is not expectorating any phlegm. She has minimal amount of cough. She has not noted any wheezing overnight. She remains on a low amount of oxygen. She is not oxygen dependent at home. She denies fevers chills night sweats or other constitutional symptoms Review of Systems 2 Review of Systems: All systems reviewed & are unremarkable except as noted in Subjective Physical Exam 2 Constitutional: + morbidly obese; no acute distress and not ill appearing Neck: trachea midline, no thyromegaly Respiratory: normal respiratory effort, lungs clear to auscultation Cardiovascular: RRR, no murmur, no edema Gastrointestinal (Abdomen): normal bowel sounds, soft, nontender, no hepatosplenomegaly Musculoskeletal: Extremities: extremities normal to inspection Skin: no rashes, warm and dry Neurologic: Nonfocal exam Lymphatic: no cervical lymphadenopathy Results & Data Results & Data Vital Signs (Past 12 Hours) Vital Signs Temp Pulse Pulse Pulse Resp BP Pulse Ox 01/25/25 07:41 36.1 C L 45 L 18 91/56 L 97 01/25/25 04:52 47 L 18 95/62 L 93 01/25/25 01:00 56 L 01/25/25 00:12 01/24/25 23:20 36.2 C L 59 L 16 116/65 98 01/24/25 21:53 54 L 16 99 01/24/25 19:48 36.3 C L 60 20 119/75 98 O2 Del Method O2 Flow Rate 01/25/25 07:41 Nasal Cannula 97 01/25/25 04:52 Nasal Cannula 2 01/25/25 01:00 01/25/25 00:12 Nasal Cannula 2 01/24/25 23:20 Nasal Cannula 2 01/24/25 21:53 Nasal Cannula 2 01/24/25 19:48 Nasal Cannula 2 Laboratory Results 01/25/25 06:23 Diagnostic Findings No new imaging PG Care Time/CCT Total # of Minutes Spent Total Time Spent with Patient: Total time spent is greater than 50% in coordination of care (as documented) at patient's floor/unit and/or counseling patient: Coding Level of Care Code 39267 SUB INP/OBS CARE 2/35MIN Diagnoses Hypoxia R09.02 Severe persistent asthma with exacerbation J45.51 Asthma persistence: persistent Asthma severity: severe Cough R05.9 Cough type: unspecified Morbid obesity E66.01 Atelectasis J98.11
[2025-01-25 07:58] LABS: Alanine Aminotransferase 31.0 U/L (7-52); Albumin Globulin Ratio 1.1 (0.9-2); Alkaline Phosphatase 75.0 U/L (34-104); Anion Gap 9.0 (3-11); Bilirubin,Total 0.4 mg/dl (0.2-1.0); Blood Urea Nitrogen 48.0 mg/dl (6-23); Calcium 9.7 mg/dl (8.6-10.3); Carbon Dioxide 27.0 mmol/L (21-32); Chloride 108.0 mmol/L (98-107); Creatinine Clr Calc Pharmacy 37.8 ml/min; Globulin 2.8 gm/dl (2.5-4.0); Glucose 85.0 mg/dl (70-99(Fasting)); Potassium 3.8 mmol/L (3.5-5.1); Sodium 144.0 mmol/L (136-145); Total Protein 6.0 gm/dl (6.0-8.3)
[2025-01-25] MEDS: predniSONE 20 MG TAB PO SCH (08:27)
--- NOTE | 2025-01-25 12:04 | Hospitalist Progress Note ---
Date of Service January 25, 2025 Assessment & Plan (1) Asthma exacerbation: (2) Hypotension: (3) Hypertension: (4) Hypothyroidism: Plan Pt is a 69 yo female who with a past med hx of asthma, hypothyroidism, DMT2, hx MS, and HTN who presents to the hospital on 01/23 for continued SOB and gurgling with two recent admissions this month for similar symptoms. She reportedly improves throughout her hospitalization but upon returning home she worsens despite being compliant with her regimen. She notes on admission that her dyspnea is not worsening just persisting, and she has "gurgling in the throat." CXR and chest CTA unremarkable for acute processes. She was admitted for treatment of her asthma exacerbation. She does not wear supplemental O2 at home, but has needed it since admission to maintain her O2 sat. #Asthma - Pulmonology consulted given multiple readmissions for asthma exacerbations - Continue prednisone 40 mg p.o. daily x 5 days. Would discontinue as soon as possible due to risk of myopathy and fluid retention - Continue Breo inhaler while inpatient (on Symbicort at home), albuterol as needed - Started Incruse daily and should be continued on discharge - Continue hypertonic saline neb, Flonase BID, Mucinex, glycopyrrolate, ISB Q1HWA - Sputum culture from 01/22 with Pseudomonas aeruginosa, sensitivities pending. Initially started on IV Zosyn, but discussed with Infectious Disease who agrees with pulmonology that this likely is colonization and not true infection so IV Zosyn was discontinued - Continue supplemental O2 as needed and wean as tolerated - Follow-up with pulmonology clinic, Dr. Barroso, after discharge - Follow-up with pipe line walker, Dr. Farris, to begin biologic therapy such as Dupixent #Hypothyroidism - TSH checked at start of month and high at 6.084. Now with sustained bradycardia in 40-50s and hypotension 90s systolic - asymptomatic - Increase Synthroid from 25 mcg to 50 mcg daily - Will check random cortisol now and AM cortisol with morning labs #Hypotension - relative hypotension on admission at 90s systolic which has persisted intermittently - Continue to hold benazepril and metoprolol for now. Monitor BP and resume when appropriate #DUNCAN - baseline Cr ~1.0 - Cr now at 1.52 - Bumex held - Encourage oral fluids - Trend BMP with AM labs #Class III obesity - BMI 46.1 - Recommend outpatient polysomnography to evaluate for underlying OPAL/OHS - Recommend significant weight loss #DMT2 - continue home metformin - last HA1c recently 6.7% - will do SSI, defer long acting for now VTE ppx: lovenox, can switch to heparin if kidney function worsens Dispo: Pending PT/OT evaluations and improvement in respiratory status Increased Synthroid Held Bumex Discussed case with ID Admission and Anticipated Discharge Date Admission Date: January 23, 2025 Subjective Patient seen and evaluated bedside. She reports her breathing is improved today. She had a mild cough upon waking up but has not coughed since. She denies any wheezing. No additional complaints or concerns at this time. Physical Exam Physical Exam: General: Much more awake today. No acute distress, nondiaphoretic. Class III obesity. Cardiac: Bradycardic rate in 40-50s and regular rhythm without murmurs gallops or rubs. Pulm: Clear to auscultation bilaterally without wheezes, rales or rhonchi. Normal respiratory effort. 97% on 1 L NC. Abdominal: Soft, nontender, nondistended. Bowel sounds present. Neuro: A&O x3. No focal neurological deficits. Results & Data Results & Data Vital Signs (Past 12 Hours) Vital Signs Temp Pulse Pulse Pulse Resp BP Pulse Ox 01/25/25 10:14 46 L 01/25/25 08:05 01/25/25 07:41 97.0 F L 45 L 18 91/56 L 97 01/25/25 04:52 47 L 18 95/62 L 93 01/25/25 01:00 56 L 01/25/25 00:12 O2 Del Method O2 Flow Rate 01/25/25 10:14 01/25/25 08:05 Nasal Cannula 2 01/25/25 07:41 Nasal Cannula 2 01/25/25 04:52 Nasal Cannula 2 01/25/25 01:00 01/25/25 00:12 Nasal Cannula 2 Laboratory Results Reviewed CBC with differential Reviewed CMP, chemistries PG Care Time/CCT Total # of Minutes Spent Total Time Spent with Patient: Total time spent is greater than 50% in coordination of care (as documented) at patient's floor/unit and/or counseling patient: Coding Level of Care Code 99052 SUB INP/OBS CARE 3/50MIN Diagnoses Severe persistent asthma with exacerbation J45.51 Asthma persistence: persistent Asthma severity: severe Hypotension I95.9 Hypertension I10 Hypothyroidism E03.9 (1) Asthma exacerbation Asthma persistence: persistent Asthma severity: severe Qualified Code(s): J45.51 - Severe persistent asthma with (acute) exacerbation
[2025-01-25] MEDS: LEVOTHYROXINE SODIUM 25 MCG TABLET PO ONE (16:11)
[2025-01-25] MEDS: AZITHROMYCIN 250 MG TAB PO SCH (21:11)
[2025-01-26] MEDS: LEVOTHYROXINE SODIUM 50 MCG TABLET PO SCH (06:03)
[2025-01-26 07:47] LABS: Hematocrit (blood only) 33.2 % (37.0-47.0); Hemoglobin 10.7 g/dl (12.0-16.0); Immature Granulocytes # (auto) 0.03 K/uL (0.01-0.20); Immature Granulocytes % (auto) 0.3 %; Mean Corpuscular Hemoglobin 30.6 pg (25.0-34.0); Mean Corpuscular Volume 94.9 fL (80.0-100.0); Platelet Count 134 K/uL (130-400); RDW Standard Deviation 60.3 fL (36.4-46.3); Red Blood Count 3.50 M/uL (4.20-5.40); White Blood Count 9.37 K/ul (4.8-10.8)
[2025-01-26 08:06] LABS: Alanine Aminotransferase 31.0 U/L (7-52); Albumin Globulin Ratio 1.1 (0.9-2); Alkaline Phosphatase 71.0 U/L (34-104); Anion Gap 7.0 (3-11); Bilirubin,Total 0.3 mg/dl (0.2-1.0); Blood Urea Nitrogen 49.0 mg/dl (6-23); Calcium 9.4 mg/dl (8.6-10.3); Carbon Dioxide 28.0 mmol/L (21-32); Chloride 108.0 mmol/L (98-107); Creatinine Clr Calc Pharmacy 39.5 ml/min; Globulin 2.8 gm/dl (2.5-4.0); Glucose 65.0 mg/dl (70-99(Fasting)); Potassium 4.3 mmol/L (3.5-5.1); Sodium 143.0 mmol/L (136-145); Total Protein 6.0 gm/dl (6.0-8.3)
--- NOTE | 2025-01-26 09:17 | Pulmonology Progress Note ---
Date of Service January 26, 2025 Assessment & Plan (1) Hypoxia: (2) Asthma exacerbation: Asthma persistence: persistent Asthma severity: severe Qualified Code(s): J45.51 - Severe persistent asthma with (acute) exacerbation (3) Cough: Cough type: unspecified Qualified Code(s): R05.9 - Cough, unspecified (4) Morbid obesity: (5) Atelectasis: Plan Impression: Dali Smyth is a 69-year-old female with past medical history of asthma, multiple sclerosis, diabetes mellitus, GERD, morbid obesity, tachy-rowena syndrome, and TIA; who is presenting back to [facility] ED 24hrs after discharge for acute asthma exacerbation now again with worsening shortness of breath. Recommendations: 1. Dyspnea: Likely multifactorial. I am not convinced that asthma is the predominant issue with her shortness of breath. Morbid obesity, restrictive lung disease, and deconditioning all are likely playing a role. 2. Asthma: Patient no longer demonstrates bronchospasm. She is not wheezing and feels her breathing is comfortable. Would recommend 5 days of prednisone. Continue Breo (can transition back to Symbicort going home). Would continue Incruse. Case management should get the patient a follow-up appointment with allergy immunology for consideration of Dupixent as noted in prior allergy notes from 1 year ago. 3. 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 White blood cell count is normal and she has been afebrile. Colonization is more likely exacerbated by the fact the patient has been placed on steroids frequently. She is currently receiving Zosyn and azithromycin. ID consultation has been requested and will defer antibiotics to them but from my perspective, the patient likely does not need antibiotics from a pulmonary perspective. 4. Hypoxemia: Secondary to atelectasis and hypercarbia. Continue incentive spirometry and flutter valve. Out of bed to chair as tolerated. Wean oxygen as tolerated. The patient may require supplemental oxygen at discharge. Outpatient polysomnography is recommended. Patient is clear for discharge from pulmonary perspective. Patient will require follow-up in the outpatient setting with Dr. sweet and Dr. grider. Pulmonary signing off. Feel free to contact us with questions or concerns Admission and Anticipated Discharge Date Admission Date: January 23, 2025 Subjective "I feel good." Patient weaned to room air this am and SpO2 95%. Patient subjectively feels her breathing is back to baseline. Patient non-bronchospastic. Patient from pulmonary perspective can discharge home with follow up. Review of Systems 2 Review of Systems: All systems reviewed & are unremarkable except as noted in HPI & below Physical Exam 2 Physical Exam: VITALS: Reviewed. WEIGHT/BMI reviewed. GEN: Age appearing, well-developed, NAD. PSYCH: Good Judgment. AOx3. Normal memory, mood, and affect. HEENT -Head: NC/AT; -Eyes: PERRL, EOMI. No discharge or redn ess; -Ears: External ears are normal. Normal TMs. -Nose: Normal nares. -Mouth and throat: MMM. Normal gums, muc nicolasa, palate,. Good dentition. NECK: Supple, with no masses. CV: RRR, no m/r/g. LUNGS: CTAB, no w/r/c. ABD: Soft, NT/ND, NBS, no masses or organomegaly. : Deferred. SKIN: Warm, well perfused. No skin rashes or abnormal lesions. MSK: No deformities. EXT: No clubbing, cyanosis, or edema. NEURO: Normal muscle strength and tone. No focal deficits. Results & Data Results & Data Vital Signs (Past 12 Hours) Vital Signs Temp Pulse Pulse Resp BP BP Pulse Ox 01/26/25 08:31 01/26/25 08:18 36.3 C L 75 17 107/59 L 93 01/26/25 05:32 47 L 01/26/25 03:51 53 L 18 109/70 93 01/26/25 02:03 36.2 C L 01/25/25 23:48 54 L 16 125/72 95 01/25/25 23:37 60 01/25/25 23:30 37.4 C 01/25/25 21:50 O2 Del Method 01/26/25 08:31 Room Air 01/26/25 08:18 Room Air 01/26/25 05:32 01/26/25 03:51 Room Air 01/26/25 02:03 01/25/25 23:48 Room Air 01/25/25 23:37 01/25/25 23:30 01/25/25 21:50 Room Air Laboratory Results 01/26/25 07:16 01/26/25 07:16 Abnormal Lab Results 01/25/25 01/25/25 01/25/25 10:13 10:19 11:46 WBC RBC Hgb Hct MCV MCH MCHC RDW Std Deviation RDW Coeff of Kaia Plt Count MPV Immature Gran % (Auto) Neut % (Auto) Lymph % (Auto) Grundy % (Auto) Eos % (Auto) Baso % (Auto) Neut # (Auto) Lymph # (Auto) Grundy # (Auto) Eos # (Auto) Baso # (Auto) Immature Gran # (Auto) Sodium Potassium Chloride Carbon Dioxide Anion Gap BUN Creatinine Est Cr Clr Drug Dosing eGFR BUN/Creatinine Ratio Glucose POC Glucose 138 H Calcium Total Bilirubin AST ALT Alkaline Phosphatase Total Protein Albumin Globulin Albumin/Globulin Ratio Random Cortisol 4.76 Cortisol AM Sample Nasal Screen MRSA (PCR) Negative 01/25/25 01/25/25 01/26/25 17:07 20:13 07:16 WBC 9.37 RBC 3.50 L Hgb 10.7 L Hct 33.2 L MCV 94.9 MCH 30.6 MCHC 32.2 RDW Std Deviation 60.3 H RDW Coeff of Kaia 17.4 H Plt Count 134 MPV 13.0 H Immature Gran % (Auto) 0.3 Neut % (Auto) 53.1 Lymph % (Auto) 36.2 Grundy % (Auto) 9.0 Eos % (Auto) 1.3 Baso % (Auto) 0.1 Neut # (Auto) 4.98 Lymph # (Auto) 3.39 Grundy # (Auto) 0.84 H Eos # (Auto) 0.12 Baso # (Auto) 0.01 Immature Gran # (Auto) 0.03 Sodium 143 Potassium 4.3 Chloride 108 H Carbon Dioxide 28 Anion Gap 7 BUN 49 H Creatinine 1.46 H Est Cr Clr Drug Dosing 39.5 eGFR 38.49 BUN/Creatinine Ratio 33.6 H Glucose 65 L POC Glucose 165 H 165 H Calcium 9.4 Total Bilirubin 0.3 AST 16 ALT 31 Alkaline Phosphatase 71 Total Protein 6.0 Albumin 3.2 L Globulin 2.8 Albumin/Globulin Ratio 1.1 Random Cortisol Cortisol AM Sample Nasal Screen MRSA (PCR) 01/26/25 01/26/25 07:21 07:50 WBC RBC Hgb Hct MCV MCH MCHC RDW Std Deviation RDW Coeff of Kaia Plt Count MPV Immature Gran % (Auto) Neut % (Auto) Lymph % (Auto) Grundy % (Auto) Eos % (Auto) Baso % (Auto) Neut # (Auto) Lymph # (Auto) Grundy # (Auto) Eos # (Auto) Baso # (Auto) Immature Gran # (Auto) Sodium Potassium Chloride Carbon Dioxide Anion Gap BUN Creatinine Est Cr Clr Drug Dosing eGFR BUN/Creatinine Ratio Glucose POC Glucose 73 Calcium Total Bilirubin AST ALT Alkaline Phosphatase Total Protein Albumin Globulin Albumin/Globulin Ratio Random Cortisol Cortisol AM Sample 1.64 L Nasal Screen MRSA (PCR) Diagnostic Findings No recent imaging studies. PG Care Time/CCT Total # of Minutes Spent Total Time Spent with Patient: Total time spent is greater than 50% in coordination of care (as documented) at patient's floor/unit and/or counseling patient: Coding Level of Care Code 06059 SUB INP/OBS CARE 2/35MIN Diagnoses Hypoxia R09.02 Severe persistent asthma with exacerbation J45.51 Asthma persistence: persistent Asthma severity: severe Cough R05.9 Cough type: unspecified Morbid obesity E66.01 Atelectasis J98.11
[2025-01-26 11:21] VITALS: RESP 17; TEMP 97.2
[2025-01-26 16:00] VITALS: O2SAT 97
[2025-01-26 16:24] VITALS: BP 96/65; PULSE 47
--- NOTE | 2025-01-26 16:31 | Discharge Summary ---
Discharge Summary Date of Service January 26, 2025 Principal Dx & Hospital Course #1 = Principal Diagnosis (1) Asthma exacerbation: (2) Hypotension: (3) Hypertension: (4) Hypothyroidism: Plan Pt is a 69 yo female who with a past med hx of asthma, hypothyroidism, DMT2, hx MS, and HTN who presents to the hospital on 01/23 for continued SOB and gurgling with two recent admissions this month for similar symptoms. She reportedly imp roves throughout her hospitalization but upon returning home she worsens despite being compliant with her regimen. She notes on admission that her dyspnea is not worsening just persisting, and she has "gurgling in the throat." CXR and chest CTA unremarkable for acute processes. She was admitted for treatment of her asthma exacerbation. #Asthma - Pulmonology consulted given multiple readmissions for asthma exacerbations - Sputum culture from 01/22 with Pseudomonas aeruginosa, sensitivities pending. Initially started on IV Zosyn, but discussed with Infectious Disease who agrees with pulmonology that this likely is colonization and not true infection so IV Zosyn was discontinued - Started on Incruse inhaler daily this admission and continued on discharge - Continue Symbicort, albuterol as needed - Was able to be weaned off supplemental O2 and is now stable on room air. 2 step completed prior to discharge and she does not require any supplemental O2 either at rest or with activity - Follow-up appointments made at pulmonology clinic with Dr. Barroso and with Allergy and Immunology with Dr. Farris to begin biologic therapy like Dupixent #Hypothyroidism - TSH checked at start of month and high at 6.084. Had sustained bradycardia in the 40s50s and hypotension with 90s systolic during this admission (asymptomatic). Her Synthroid was increased from 25 mcg daily to 50 mcg daily and her heart rate improved to 70s80s. Blood pressure still soft but most recent BP prior to discharge 109/74. - Continue Synthroid 50 mcg daily #Hypotension - relative hypotension on admission at 90s systolic which has persisted intermittently but improving - Continue to hold benazepril - Metoprolol resumed #DUNCAN - baseline Cr ~1.0 - Cr now at 1.46 - Bumex held - Encourage oral fluids #Class III obesity - BMI 46.1 - Recommend outpatient polysomnography to evaluate for underlying OPAL/OHS - Recommend significant weight loss #DMT2 - last HA1c recently 6.7% - home regimen resumed on discharge VTE ppx: lovenox Dispo: Discharged home 01/26. Home health services resumed on discharge Notes For Next Care Provider Dyspnea is likely multifactorial between asthma exacerbation, restrictive lung disease, generalized deconditioning, morbid obesity. Recommend outpatient polysomnography to evaluate for underlying OPAL/OHS and significant weight loss. Monitor BP and renal function on when to resume Bumex and benazepril. Medication Changes From Visit Increased Synthroid to 50 mcg daily Prednisone 20 mg daily x 30 days Azithromycin 250 mg daily x 4 days Started Incruse inhaler 1 inhalation daily Held Bumex Held benazepril Admission HPI Per Admitting Provider Pt is a 69 yo female who with a past med hx of asthma, hypothyroidism, DMT2, hx MS, and HTN who presents to the hospital for 01/23 for continued SOB and gurgling. Pt was just admitted 01/21-01/22 for same symptoms/asthma exac. She states she felt okay at discharge and felt at that time she was ready to go home. She states when she got home she went to sleep for a few hours and noted continued symptoms of gurgling and ongoing shortness of breath. She states the SOB and gurgling started for her about 2-3 weeks ago. She states with the gurgling she is able to occasional cough up some mucus that is white sometimes and other times yellow-greenish. Denies chest pain or fevers. She states the SOB is not worsening, just persistent. She states that she took the steroid earlier today but states to me on admission that she took "4 pills in the morning and 4 pills in the afternoon." Discharge Exam General: Much more awake today. No acute distress, nondiaphoretic. Class III obesity. Cardiac: Bradycardic rate in 40-50s and regular rhythm without murmurs gallops or rubs. Pulm: Clear to auscultation bilaterally without wheezes, rales or rhonchi. Normal respiratory effort. 97% on room air. Abdominal: Soft, nontender, nondistended. Bowel sounds present. Neuro: A&O x3. No focal neurological deficits. Discharge Plan Discharge Items Patient Disposition: Home - Home Health Services Reason For Visit: SOB, GURGLING Discharge Diagnosis: Dyspnea Condition on Discharge: Fair Activity: Resume your previous activity Non-emergency contact: Primary Care Provider, Specialist and Analysis Or Research Safety Inspector Call non-emergency contact if: you have any medication questions and your symptoms worsen Follow-up/Referrals: David Barroso MD [Physician] - 03/02/25 10:15 am (This is the first available with Dr. Barroso- the office will also place you on the waitlist- if a sooner appointment becomes available the office will call you ) Neto Farris MD [Physician] - 01/31/25 11:00 am Rhona Canales [Primary Care Provider] - 02/08/25 10:45 am Diet: Carb Consistent or DM2 Addtl Attending Provider Instructions: Dali, You were admitted to the hospital due to difficulty breathing. This is likely multifactorial between asthma, restrictive lung disease, generalized deconditioning, and obesity. You were evaluated by the pulmonology team who assisted with your care. You have improved and are ready to be discharged home. Home health services have been resumed on discharge. New medications: * Take azithromycin 250 mg at bedtime x 4 days. * Take prednisone 20 mg once daily x 3 days. * Start Incruse Ellipta inhaler 1 inhalation daily. * Your Synthroid medication was increased to 50 mcg daily (previously on 25 mcg daily). Hold the following medications for the next few days to allow your kidney function to return to baseline: * Benazepril * Bumex Follow-up appointments: * PCP on 02/08 at 10:45 AM * Allergy and immunology on 01/31 at 11:00 AM * Pulmonology on 03/02 at 10:15 AM - you are on the wait list if they a sooner appointment opens up prior to the scheduled appointment Please return to the hospital if you experience any of the following: Difficulty breathing, worsening shortness of breath, increased cough with sputum production, chest pain, heart palpitations, lightheadedness, dizziness, passing out, or any other symptoms concerning for you. It was a pleasure taking care of you while you were in the hospital! Pending Studies at Discharge: No Stand-Alone Forms: [facility], Smoking Cessation Medications and DC Order Prescriptions: New azithromycin 250 mg Tablet 250 mg PO HS Qty: 4 0RF Incruse Ellipta 62.5 mcg/actuation Blister With Device 1 inh inhalation DAILY Qty: 30 0RF levothyroxine [Synthroid] 50 mcg Tablet 50 mcg PO DAILYBB Qty: 30 0RF prednisone 20 mg Tablet 20 mg PO DAILY Qty: 3 0RF Continued (DME) Power Wheelchair Device See Rx Instructions .Route Qty: 1 0RF Rx Instructions: As directed budesonide-formoterol 160-4.5 mcg/actuation HFA aerosol inhaler 2 puff inhalation BID Qty: 10.2 2RF (DME) Aerochamber MV Spacer See Rx Instructions .ROUTE .MEDSUPPLY Qty: 1 0RF Rx Instructions: As directed omeprazole 20 mg capsule,delayed release(DR/EC) 20 mg PO PM aspirin 81 mg Tablet,Delayed Release (Dr/Ec) 81 mg PO QAM Qty: 30 0RF atorvastatin 40 mg tablet 40 mg PO HS docusate sodium 100 mg capsule 100 mg PO PM PRN (Reason: Constipation) turmeric 400 mg Capsule 400 mg PO QAM albuterol sulfate 2.5 mg /3 mL (0.083 %) solution for nebulization 2.5 mg continuous nebulization DIRECTED PRN (Reason: Shortness Of Breath Or Wheezing) diclofenac potassium 50 mg tablet 50 mg PO TID PRN (Reason: Pain) vitamin B complex Tablet 1 tab PO DAILY nystatin [Klayesta] 100,000 unit/gram powder 1 applic TOPICAL BID PRN (Reason: fungal rash) Rx Instructions: under breast Centrum Adult 50 Plus 80 mcg Tablet,Chewable 1 tab PO DAILY albuterol sulfate 90 mcg/actuation HFA aerosol inhaler 2 puff INHALATION Q4H PRN (Reason: Shortness Of Breath Or Wheezing) ipratropium bromide 21 mcg (0.03 %) spray,non-aerosol 2 spray INTRANASAL BID metoprolol tartrate 25 mg Tablet 12.5 mg PO BID 30 Days Qty: 30 0RF metformin 1,000 mg tablet 1,000 mg PO BID Held benazepril 40 mg tablet 40 mg PO QAM Hold Instructions: Provider's Order bumetanide 0.5 mg tablet 0.5 mg PO AMPM Hold Instructions: Provider's Order Discontinued levothyroxine 25 mcg tablet 25 mcg PO DAILYBB prednisone 10 mg tablet 10 mg PO DIRECTED Qty: 42 0RF Rx Instructions: STARTED 01/23/25-----Please take 4 tablets by mouth for 3 days followed by 3 tablets by mouth for 5 days followed by 2 tablets by mouth for 5 days followed by 1 tablet by mouth for 5 days. Discharge Orders: Discharge Order (Routine); Ordered 01/26/25 Ordered By: Antonia Millan Admission Data Admit Date/Time: 01/23/25 21:26 Attending Provider: Nirav Bustamante Admit Provider: Argenis Traore Primary Care Provider: Rhona Canales Other Providers: Veronica Butterfield; Brendan Sullivan; [facility] Hospital Stay Data Consultations 01/23/25 19:38 ED Decision to Admit Stat 01/24/25 10:32 Consult Pulmonology Routine 01/24/25 15:25 Consult Infectious Diseases Routine Diagnostic Imagining Performed Chest X-Ray 01/23/25 17:56 Chest radiograph, one view History: Chest pain Comparison: None Findings: Single AP view of the chest performed. No focal consolidation or pleural effusion. No pneumothorax. The cardiomediastinal silhouette is within normal limits. Normal pulmonary vascularity. No evidence for lymphadenopathy. No visualized bony or soft tissue abnormality. Impression: Normal chest radiograph Electronically signed by Nuno Arguello 01-23-2025 7:03 PM Chest CTA 01/23/25 21:02 Exam(s): CTA CHEST IV Amt: OPTIRAY [id number] EXAM: CT Angiography Chest With Intravenous Contrast CLINICAL HISTORY: Reason for exam: PE. TECHNIQUE: Axial computed tomographic angiography images of the chest with intravenous contrast. CTDI is 28.14 mGy and DLP is 887 mGy-cm. Automated exposure control was utilized for the study. A dose lowering technique was utilized adhering to the principles of ALARA. MIP reconstructed images were created and reviewed. COMPARISON: 12/02/2023 FINDINGS: Pulmonary arteries: Adequate pulmonary artery opacification. Normal caliber of the main pulmonary artery. No evidence of acute pulmonary embolism. Aorta: Thoracic aortic atherosclerosis without aneurysm or dissection. Other arteries: Stable 12 mm calcified splenic artery aneurysm. Lungs: Subsegmental atelectasis in the lower lobes, [id number] right. No consolidation or mass. Pleural space: No significant effusion. No pneumothorax. Heart: No cardiomegaly. No significant pericardial effusion. Bones/joints: Increased thoracic kyphosis. No acute fracture. No dislocation. Soft tissues: Unremarkable. Lymph nodes: No enlarged lymph nodes. Gallbladder and bile ducts: Cholecystectomy. IMPRESSION: No evidence of acute pulmonary embolism. Electronically signed by: Italo Dalal M.D. 01/23/25 23:09 PM Pending Results Patient Have Any Pending Studies at Discharge: No Discharge Instructions Given to Patient (Per Discharging Provider) Juan Mcnally were admitted to the hospital due to difficulty breathing. This is likely multifactorial between asthma, restrictive lung disease, generalized deconditioning, and obesity. You were evaluated by the pulmonology team who assisted with your care. You have improved and are ready to be discharged home. Home health services have been resumed on discharge. New medications: * Take azithromycin 250 mg at bedtime x 4 days. * Take prednisone 20 mg once daily x 3 days. * Start Incruse Ellipta inhaler 1 inhalation daily. * Your Synthroid medication was increased to 50 mcg daily (previously on 25 mcg daily). Hold the following medications for the next few days to allow your kidney function to return to baseline: * Benazepril * Bumex Follow-up appointments: * PCP on 02/08 at 10:45 AM * Allergy and immunology on 01/31 at 11:00 AM * Pulmonology on 03/02 at 10:15 AM - you are on the wait list if they a sooner appointment opens up prior to the scheduled appointment Please return to the hospital if you experience any of the following: Difficulty breathing, worsening shortness of breath, increased cough with sputum production, chest pain, heart palpitations, lightheadedness, dizziness, passing out, or any other symptoms concerning for you. It was a pleasure taking care of you while you were in the hospital! Total Time Total Time Spent Total Time Spent (In Minutes): Greater than 30 minutes spent completing this discharge process including direct patient care, medication reconciliation, documentation, review of labs and images, and coordination of care. Coding Level of Care Code 53108 INP/OBS DISCH >30 MIN Diagnoses Severe persistent asthma with exacerbation J45.51 Asthma persistence: persistent Asthma severity: severe Hypotension I95.9 Hypertension I10 Hypothyroidism E03.9
[2025-02-02 00:53] LABS: ANCA Screen Negative (Negative); Anti Nuclear Antibody Screen POSITIVE (NEGATIVE); Aspergillus Antigen, Serum Not Detected (Not Detected); Myeloperoxidase Ab <1.0 AI (<1.0); Source Serum
[2025-02-02 12:34] LABS: ANA Titer 1:80 titer
== END 2025-01-26 17:13 | disposition home health service (06) | DRG 202 ==
LOC: ED 17:40 → INTOOBSV 21:26 → EDINP 21:26 → SUATTDRO 21:26 → 2N 23:20

== ENCOUNTER 2025-02-17 09:25 | Inpatient (IN) ==
[2025-02-17] MEDS ORDERED: VANCOMYCIN CONSULT ACTIVE PRN ×2 (09:47→15:36)
--- NOTE | 2025-02-17 09:57 | Emergency Department Note ---
History of Present Illness General Chief complaint: Altered Mental Status Time Seen by Provider: 02/17/25 09:34 Source: patient and RN notes reviewed Mode of arrival: EMS History of Present Illness Patient is a 69-year-old female with history of diabetes, MS, hypertension, asthma who presents for 4 days of generalized weakness and fatigue. She states that she has been mainly in her recliner for the past few days. She has had decreased p.o. intake as well. Patient also complaining of pain to her sacral area where she has chronic sores. She denies any fevers, chills, headache, , shortness of breath, cough, abdominal pain, nausea, vomiting. No change in bowel or bladder habits reported. She does report some chest pressure as well over the past few days. Home Medications Medication Instructions Recorded Confirmed Type benazepril 40 mg tablet 0 mg PO QAM 06/25/21 02/17/25 History omeprazole 20 mg capsule,delayed 20 mg PO PM 06/25/21 01/23/25 History release aspirin 81 mg tablet,delayed 81 mg PO QAM #30 tabs 08/16/21 02/17/25 Rx release atorvastatin 40 mg tablet 40 mg PO HS 07/20/23 01/23/25 History docusate sodium 100 mg capsule 100 mg PO PM PRN Constipation 07/26/23 02/17/25 History turmeric 400 mg capsule 400 mg PO QAM 07/26/23 02/17/25 History albuterol sulfate 2.5 mg/3 mL 2.5 mg continuous nebulization 09/25/23 01/23/25 History (0.083 %) solution for nebulization DIRECTED PRN Shortness Of Breath Or Wheezing diclofenac potassium 50 mg tablet 50 mg PO TID PRN Pain 09/25/23 02/17/25 History vitamin B complex 1 tab PO DAILY 09/25/23 02/17/25 History Wheelchair (Powered) (Power #1 ea 11/05/23 01/21/25 Rx Wheelchair) multivitamin with minerals-folic 1 tab PO DAILY 12/01/23 02/17/25 History acid 80 mcg chewable tablet (Centrum Adult 50 Plus) nystatin 100,000 unit/gram topical 1 applic topical BID PRN fungal 12/01/23 01/23/25 History powder (Klayesta) rash budesonide-formoterol HFA 160 2 puff inhalation BID #10.2 grams 12/28/23 02/17/25 Rx mcg-4.5 mcg/actuation aerosol inhaler inhalational spacing device #1 ea 12/28/23 01/21/25 Rx (Aerochamber MV spacer) albuterol sulfate 90 mcg/actuation 2 puff inhalation Q4H PRN 01/14/25 01/23/25 History aerosol inhaler Shortness Of Breath Or Wheezing ipratropium bromide 21 mcg (0.03 2 spray intranasal BID 01/14/25 01/23/25 History %) nasal spray bumetanide 0.5 mg tablet 0.5 mg PO AMPM 01/21/25 02/17/25 History azithromycin 250 mg tablet 250 mg PO HS #4 tabs 01/26/25 Rx levothyroxine 50 mcg tablet 50 mcg PO DAILYBB #30 tabs 01/26/25 02/17/25 Rx (Synthroid) prednisone 20 mg tablet 20 mg PO DAILY #3 tabs 01/26/25 Rx umeclidinium 62.5 mcg/actuation 1 inh inhalation DAILY #30 ea 01/26/25 02/17/25 Rx blister powder for inhalation (Incruse Ellipta) metformin 500 mg tablet 1,000 mg PO BID 02/17/25 02/17/25 History Allergies Allergy/AdvReac Type Severity Reaction Status Date / Time Fish Containing Products Allergy Intermediate ITCHY RASH Verified 01/23/25 19:57 shellfish derived Allergy Intermediate ITCHY RASH Verified 01/23/25 19:57 [facility] Allergy Unknown CAN'T Verified 01/23/25 19:57 REMEMBER codeine AdvReac Mild NAUSEATED Verified 01/23/25 19:57 Past Med/Surg History Problem List (Updated 02/17/25 @ 12:14 by Edwin Brar MD) Sepsis (Acute) Infected wound (Acute) Atelectasis Hypotension Cough (Acute) Asthma exacerbation (Acute) Shortness of breath (Acute) Candidal intertrigo (Acute) Weakness (Acute) Eosinophilic asthma Shortness of breath (Acute) Edema (Acute) Dyspnea on exertion History of UTI Thrush Yeast dermatitis (Acute) Generalized muscle weakness (Acute) Acute UTI (urinary tract infection) (Acute) Ventral hernia Diabetes Multiple sclerosis (Acute) UTI (urinary tract infection) (Acute) Abnormal finding on diagnostic imaging of left kidney Medical History Hypomagnesemia Hypothermia Hypomagnesemia Dyspnea Left-sided weakness DUNCAN (acute kidney injury) Brain TIA Acute respiratory failure with hypoxia Osteoarthritis of knees, bilateral Sinusitis, acute Morbid obesity with BMI of 50.0-59.9, adult Tachy-rowena syndrome GERD (gastroesophageal reflux disease) Hypothyroidism Pancreatitis Thrombocytopenia Peripheral edema Septic shock Hypomagnesemia Fungal dermatitis Asthma Hypertension Diabetes Influenza A Pneumonia Multiple sclerosis Surgical History H/O tubal ligation H/O sinus surgery History of arthroscopic knee surgery Hx of tonsillectomy H/O: hysterectomy No pertinent past surgical history Family History Other Family history non-contributory Social History Smoking Status: Never smoker Second Hand Exposure: No; Do You Dip or Chew Tobacco: No; Hx Alcohol Use: No Hx Substance Use: No Preferred Language: Montenegrin Communication Ability: Effective Human Resource Adviser Required: No Beliefs That Will Affect Care: None marital status: Current Living Situation: Spouse Current Living Situation Comment: Lives at home with spouse and granddaughter How many Children do You have: 2 Feels Safe at Home: Yes Diet: gluten free during the past year weight has: decreased > 10 lbs Assistive Devices: Nebulizer, Walker and Wheelchair Review of Systems Review of systems negative outside of positive findings mentioned in HPI. Physical Exam Vital Signs Vital Signs - 24 hr 02/17/25 09:39 02/17/25 09:49 02/17/25 10:54 Temperature 36.5 C Temperature Source Oral Pulse Rate 92 H 94 H Pulse Rate [Apical] 87 Respiratory Rate 18 18 Respiratory Effort / Characteristics Non-Labored Spontaneous Non-Labored Spontaneous Respiratory Depth Normal Normal Blood Pressure 102/62 Blood Pressure [Left Arm] 119/59 L Blood Pressure Mean 75 Blood Pressure Mean [Left Arm] 79 Blood Pressure Position Lying Blood Pressure Position [Left Arm] Sitting Pulse Oximetry 97 97 Oxygen Delivery Method Room Air Room Air Sepsis Recent Fever Within 48 Hours No Sepsis New/Unexplained Change in Mental Status No Sepsis Action Taken by Nursing No Action Required 02/17/25 11:00 02/17/25 11:30 Temperature Temperature Source Pulse Rate Pulse Rate [Apical] 81 84 Respiratory Rate 17 18 Respiratory Effort / Characteristics Non-Labored Spontaneous Non-Labored Spontaneous Respiratory Depth Normal Normal Blood Pressure Blood Pressure [Left Arm] 110/77 111/81 Blood Pressure Mean Blood Pressure Mean [Left Arm] 88 91 Blood Pressure Position Blood Pressure Position [Left Arm] Lying Lying Pulse Oximetry 97 97 Oxygen Delivery Method Room Air Room Air Sepsis Recent Fever Within 48 Hours Sepsis New/Unexplained Change in Mental Status Sepsis Action Taken by Nursing See below Constitutional WD/WN, vitals as above Eyes PERRL, conjunctivae normal, anicteric sclerae ENMT Dry mucosal membranes Neck trachea midline, no thyromegaly Respiratory normal respiratory effort, lungs clear to auscultation Cardiovascular RRR, no murmur, no edema Decreased heart sounds secondary to body habitus Chest (Breasts) Additional Comments: dermatitis under the left breast Gastrointestinal (Abdomen) normal bowel sounds, soft, nontender, no hepatosplenomegaly Large non-reducible ventral hernia, erythematous and excoriated tissue to the right inguinal region and pannus Skin Sacral decubitus wound measuring around 2 cm in diameter with depth to soft tissue, fibrinous base with foul-smelling necrotic tissue noted, surrounding erythema and excoriations noted Course Administered Medications Vancomycin HCl 2,750 mg/ (Sodium Chloride) 500 mls @ 166 mls/hr IV NOW STA Stop: 02/17/25 12:47 Last Admin: 02/17/25 10:56 Dose: 166 mls/hr Documented By: CC Magnesium Sulfate/Dextrose (Magnesium Sulfate / D5w) 1 gm in 100 mls @ 200 mls/hr IV Q30M [facility] Stop: 02/17/25 12:09 Last Admin: 02/17/25 11:42 Dose: 200 mls/hr Documented By: LKD Discontinued Medications Sodium Chloride (Nss) 1,000 mls @ 999 mls/hr IV .Q1H1M [facility] Stop: 02/17/25 12:00 Last Admin: 02/17/25 10:46 Dose: 999 mls/hr Documented By: CC Cefepime HCl (Maxipime 2000mg) 2,000 mg in 20 mls @ 5 mls/min IV NOW STA; Protocol Stop: 02/17/25 09:50 Last Admin: 02/17/25 10:49 Dose: 5 mls/min Documented By: CC Medical Decision Making Differential Diagnosis Sepsis, infected sacral wound, DUNCAN Medical Records Attestation: I reviewed the patient's medical records. Home Medications Current Medication List: was personally reviewed by me Laboratory Data Attestation: I reviewed the patient's lab results. 02/17/25 10:16 02/17/25 10:16 Lab Results 02/17/25 02/17/25 02/17/25 Range/Units 09:34 10:16 10:46 WBC 11.84 H (4.8-10.8) K/ul RBC 4.55 (4.20-5.40) M/uL Hgb 14.0 (12.0-16.0) g/dl Hct 43.1 (37.0-47.0) % MCV 94.7 (80.0-100.0) fL MCH 30.8 (25.0-34.0) pg MCHC 32.5 (32.0-36.0) g/dL RDW Std Deviation 62.0 H (36.4-46.3) fL RDW Coeff of Kaia 17.6 H (11.5-14.5) % Plt Count 289 (130-400) K/uL MPV 10.4 (9.4-12.4) fL Immature Gran % (Auto) 0.7 % Neut % (Auto) 73.5 % Lymph % (Auto) 15.4 % [place] % (Auto) 8.9 % Eos % (Auto) 1.0 % Baso % (Auto) 0.5 % Neut # (Auto) 8.71 H (1.40-6.50) K/uL Lymph # (Auto) 1.82 (1.20-3.40) K/uL [place] # (Auto) 1.05 H (0.11-0.59) K/uL Eos # (Auto) 0.12 (0.00-0.50) K/uL Baso # (Auto) 0.06 (0.00-0.20) K/uL Immature Gran # (Auto) 0.08 (0.01-0.20) K/uL Absolute Nucleated RBC 0.02 (0.00-0.12) K/uL Nucleated RBC % (auto) 0.2 % PT 11.1 (9.0-12.0) Seconds INR 1.0 (0.9-1.1) APTT 27 (21-31) Seconds PTT Ratio 1.0 VBG pH 7.33 L (7.36-7.41) VBG pCO2 51 H (38-50) mmHg VBG pO2 22 mmHg VBG HCO3 27 mmol/L VBG O2 Saturation < 60.0 % VBG Base Excess 0.2 mEq/L Sodium 140 (136-145) mmol/L Potassium 4.3 (3.5-5.1) mmol/L Chloride 103 (98-107) mmol/L Carbon Dioxide 25 (21-32) mmol/L Anion Gap 12 H (3-11) BUN 28 H (6-23) mg/dl Creatinine 1.39 H (0.6-1.2) mg/dl Est Cr Clr Drug Dosing 42.0 ml/min eGFR 40.82 BUN/Creatinine Ratio 20.1 H (10-20) Glucose 171 H (70-99(Fasting)) mg/dl POC Glucose 172 H (70-99) mg/dl Lactate 2.8 H* (0.4-2.0) mmol/L Calcium 9.7 (8.6-10.3) mg/dl Magnesium 1.3 L (1.7-2.4) mg/dl Total Bilirubin 0.7 (0.2-1.0) mg/dl Direct Bilirubin TNP AST 21 (13-39) U/L ALT 13 (7-52) U/L Alkaline Phosphatase 133 H (34-104) U/L Troponin I High Sens 4.5 (0-14) pg/ml Total Protein 7.3 (6.0-8.3) gm/dl Albumin 3.2 L (3.4-5.0) gm/dl Procalcitonin 0.35 (0-0.5) ng/ml TSH 2.789 (0.300-4.500) uIu/ml Urine Color Dark Yellow Urine Appearance Cloudy A (Clear) Urine pH 5.0 (4.5-7.5) Ur Specific [place] 1.032 H (1.000-1.030) Urine Protein 1+ H (Negative) Urine Glucose (UA) Negative (Negative) Urine Ketones 1+ H (Negative) Urine Blood Negative (Negative) Urine Nitrite Positive A (Negative) Urine Bilirubin 2+ H (Negative) Urine Urobilinogen Negative (Negative) Ur Leukocyte Esterase 1+ H (Negative) Urine WBC (Auto) 0-5 (0-5) /hpf Urine RBC (Auto) 0-2 (0-2) /hpf U Hyaline Cast (Auto) 11-20 H (0-2) /lpf U Epithel Cells (Auto) >20 H (0-2) /hpf Urine Bacteria (Auto) None Seen (None Seen) Urine Mucus Present A (None Prsent) Urine Comment Imaging Data Attestation: I personally reviewed and interpreted this imaging study as follows: My Impression: No acute cardiopulmonary process noted Radiologist's Impression: Chest X-Ray 02/17/25 09:47 XR chest 1V portable CLINICAL HISTORY: Sepsis COMPARISON STUDY: 01/23/2025 FINDINGS: Stable mild cardiomegaly without pulmonary vascular congestion. No consolidation or pleural effusion. No pneumothorax. IMPRESSION: No acute findings. ACT 112: Negative or not required by law. Electronically signed by: Ok House M.D. 02/17/2025 10:54 AM ECG Data Attestation: I personally reviewed and interpreted this ECG as follows: Indication: + chest pain Rate (beats per minute): 97 Rhythm: + normal sinus ECG Intervals/blocks: + Normal QRS, + Normal QT and + Normal DE ECG [place]: + Normal ECG ST segments: + T-wave inversions (Inferior) Comparison ECG Date: from (02/17/2025) Change: the following changes noted Additional Comments: Full criteria for anterior infarct noted, inverted T waves have replaced nonspecific T wave abnormalities on prior EKG, poor R wave progression Blood Pressure Blood Pressure Findings: Normal blood pressure MDM Narrative Patient is a 69-year-old female presents with 4 days of generalized weakness and fatigue. Hemodynamically stable on arrival. No focal neurologic deficits. AO x 4. She complains of decreased p.o. intake as well as pain around her buttocks in the setting of pressure ulcers. She has acutely foul-smelling necrotic wound to the sacrum noted on my examination. She has diffuse skin breakdown as well around the abdominal wall. She is afebrile here today though sepsis workup was initiated. Mild leukocytosis with an elevated lactate. Cefepime and vancomycin were ordered. Blood cultures and urine culture were sent. Urinalysis here today is in the equivocal study with positive nitrates however large amount of squamous epithelium and no bacteria making this is a possible contaminated sample. Chest x-ray was reviewed. Abdominal exam is benign here today. Creatinine within patient's baseline. No evidence of severe sepsis or indication for 30 mL/kg of IV fluids. Limited to hospitalist service for management of infected wound and possible sepsis. Impression & Plan Infected wound, Sepsis Discharge Plan Visit Data Chief Complaint: Altered Mental Status ED Provider: Edwin Brar Discharge Problem: Infected wound, Sepsis Patient Disposition: Admitted As Inpatient Condition: Good Forms Stand Alone Forms: [facility] [employer] Prescriptions Prescriptions: No Action (DME) Power Wheelchair Device See Rx Instructions .Route Qty: 1 0RF Rx Instructions: As directed budesonide-formoterol 160-4.5 mcg/actuation HFA aerosol inhaler 2 puff inhalation BID Qty: 10.2 2RF (DME) Aerochamber MV Spacer See Rx Instructions .ROUTE .MEDSUPPLY Qty: 1 0RF Rx Instructions: As directed omeprazole 20 mg capsule,delayed release(DR/EC) 20 mg PO PM benazepril 40 mg tablet 0 mg PO QAM Hold Instructions: Provider's Order Patient Comments: Currently on hold, original directions: 40mg by mouth once daily. Family unsure of restart date - 02/17/25 aspirin 81 mg Tablet,Delayed Release (Dr/Ec) 81 mg PO QAM Qty: 30 0RF atorvastatin 40 mg tablet 40 mg PO HS docusate sodium 100 mg capsule 100 mg PO PM PRN (Reason: Constipation) turmeric 400 mg Capsule 400 mg PO QAM albuterol sulfate 2.5 mg /3 mL (0.083 %) solution for nebulization 2.5 mg continuous nebulization DIRECTED PRN (Reason: Shortness Of Breath Or Wheezing) diclofenac potassium 50 mg tablet 50 mg PO TID PRN (Reason: Pain) vitamin B complex Tablet 1 tab PO DAILY azithromycin 250 mg Tablet 250 mg PO HS Qty: 4 0RF Incruse Ellipta 62.5 mcg/actuation Blister With Device 1 inh inhalation DAILY Qty: 30 0RF levothyroxine [Synthroid] 50 mcg Tablet 50 mcg PO DAILYBB Qty: 30 0RF prednisone 20 mg Tablet 20 mg PO DAILY Qty: 3 0RF nystatin [Klayesta] 100,000 unit/gram powder 1 applic TOPICAL BID PRN (Reason: fungal rash) Rx Instructions: under breast Centrum Adult 50 Plus 80 mcg Tablet,Chewable 1 tab PO DAILY albuterol sulfate 90 mcg/actuation HFA aerosol inhaler 2 puff INHALATION Q4H PRN (Reason: Shortness Of Breath Or Wheezing) ipratropium bromide 21 mcg (0.03 %) spray,non-aerosol 2 spray INTRANASAL BID bumetanide 0.5 mg tablet 0.5 mg PO AMPM Hold Instructions: Provider's Order metformin 500 mg tablet 1,000 mg PO BID Patient Comments: Originally written for 500mg twice daily. Per spouse, recently increased to 1000mg twice daily. Just using this prescription up before a new one is written. 02/17/25 Referrals Referrals: Rhona Canales [Primary Care Provider] -
[2025-02-17 10:26] LABS: Base Excess VBG 0.2 mEq/L; HCO3 VBG 27 mmol/L; Oxygen Saturation VBG < 60.0 %; PCO2 VBG 51 mmHg (38-50); PO2 VBG 22 mmHg; pH VBG 7.33 (7.36-7.41)
[2025-02-17 10:29] LABS: Hematocrit (blood only) 43.1 % (37.0-47.0); Hemoglobin 14.0 g/dl (12.0-16.0); Immature Granulocytes # (auto) 0.08 K/uL (0.01-0.20); Immature Granulocytes % (auto) 0.7 %; Mean Corpuscular Hemoglobin 30.8 pg (25.0-34.0); Mean Corpuscular Volume 94.7 fL (80.0-100.0); Platelet Count 289 K/uL (130-400); RDW Standard Deviation 62.0 fL (36.4-46.3); Red Blood Count 4.55 M/uL (4.20-5.40); White Blood Count 11.84 K/ul (4.8-10.8)
[2025-02-17] MEDS: SODIUM CHLORIDE 0.9% 1,000 ML IV SCH (10:46)
[2025-02-17] MEDS: CEFEPIME 2000MG 2,000 MG/20 ML SYR IV STA (10:49)
--- NOTE | 2025-02-17 10:55 | XRay Report ---
XR chest 1V portable CLINICAL HISTORY: Sepsis COMPARISON STUDY: 01/23/2025 FINDINGS: Stable mild cardiomegaly without pulmonary vascular congestion. No consolidation or pleural effusion. No pneumothorax. IMPRESSION: No acute findings. ACT 112: Negative or not required by law. Electronically signed by: Ok House M.D. 02/17/2025 10:54 AM
[2025-02-17] MEDS: VANCOMYCIN HCL 2,750 MG in SODIUM CHLORIDE 0.9% 500 ML IV STA (10:56)
[2025-02-17 10:57] LABS: Alanine Aminotransferase 13 U/L (7-52); Alkaline Phosphatase 133 U/L (34-104); Anion Gap 12 (3-11); Bilirubin,Total 0.7 mg/dl (0.2-1.0); Blood Urea Nitrogen 28 mg/dl (6-23); Calcium 9.7 mg/dl (8.6-10.3); Carbon Dioxide 25 mmol/L (21-32); Chloride 103 mmol/L (98-107); Creatinine Clr Calc Pharmacy 42.0 ml/min; Glucose 171 mg/dl (70-99(Fasting)); Magnesium 1.3 mg/dl (1.7-2.4); Potassium 4.3 mmol/L (3.5-5.1); Sodium 140 mmol/L (136-145); Total Protein 7.3 gm/dl (6.0-8.3)
[2025-02-17 11:02] LABS: INR 1.0 (0.9-1.1); Partial Thromboplastin Time 27 Seconds (21-31); Prothrombin Time 11.1 Seconds (9.0-12.0)
[2025-02-17 11:11] LABS: Thyroid Stimulating Hormone 2.789 uIu/ml (0.300-4.500)
[2025-02-17 11:17] LABS: Appearance Urine Cloudy (Clear); Bacteria Urine Automated None Seen (None Seen); Epithelial Cell Urine Auto >20 /hpf (0-2); Glucose Urine UA Negative (Negative); WBC Urine Automated 0-5 /hpf (0-5)
[2025-02-17 11:39] LABS: RBC Urine Automated 0-2 /hpf (0-2)
[2025-02-17] MEDS: MAGNESIUM SULFATE / D5W 1 GM/100 ML BAG IV SCH (11:42)
--- NOTE | 2025-02-17 11:52 | Electrocardiogram Report ---
Test Reason : Blood Pressure : */* mmHG Vent. Rate : 97 BPM Atrial Rate : 97 BPM P-R Int : 172 ms QRS Dur : 90 ms QT Int : 360 ms P-R-T Axes : -24 -12 -26 degrees QTcB Int : 457 ms Normal sinus rhythm Poor R wave progression, consider anterior MA vs. lead placement vs. LVH Abnormal ECG When compared with ECG of 23-Jan-2025 18:09, Vent. rate has increased by 41 bpm Minimal criteria for Anterior infarct are now Present Inverted T waves have replaced nonspecific T wave abnormality in Inferior leads Confirmed by Nuno Fisher ([id number]) on 02/17/2025 11:52:33 AM Referred By: Confirmed By: Nuno Fisher
--- NOTE | 2025-02-17 12:08 | History & Physical Report ---
<Statement entered by Antonia Norris MD - 02/17/25 15:09> I personally confirmed the ray points of the HPI, PMH, PSH, reviewed vitals, labs and studies and examined the patient. I agree with the documentation below by Rose Delgadillo PA-C Sepsis, probably UTI Sacral decubitus wound, full thickness, present on admission - possible wound infection Productive cough without obvious pneumonia - possibly tracheobronchitis, colonized with pseudomonas. Agree with broad spectrum antibiotics - vancomycin and cefepime pending cultures Date of Service February 17, 2025 Assessment & Plan (1) Sepsis: (2) Infected wound: (3) Acute UTI (urinary tract infection): (4) Weakness: (5) Diabetes: (6) DUNCAN (acute kidney injury): (7) Hypomagnesemia: Plan This is a 69 year old female with past medical history of Asthma, recurrent UTI's, MS who presented to the ED on 02/17 for ~ 3 days of weakness & fatigue. While in the ED, she had a negative CXR; mild WBC of 11.84, Creatinine within baseline @ 1.39, lactate elevated at 2.8 w/ a repeat of 1.5. Mag low at 1.3, trop negative, procal normal at 0.35 & a TSH WNL. Wound, urine, and blood cultures all pending. She was given 1L IVF, Vancomycin, Cefepime & Magnesium. #Sepsis POA/UTI/Sacral wound infection. Likely secondary to UTI + possible sacral wound infection. CXR negative urinalysis + for infection. CBC w/ mild leukocytosis of 11.84 Lactate elevated at 2.8 s/p IVF w/ improvement to 1.5 Troponin negative, Procal WNL, TSH WNL. Wound, blood, urine cultures pending Continue IV vancomycin + Cefepime on admission - tailor when sensitivities become available. Wound nurse consulted, appreciate recommendations. PT/OT consulted, appreciate recommendations. #Hypomagnesemia acute on chronic. Baseline ~1.5-1.6 Low at 1.3 s/p repletion Consider PO mag supplement on discharge. AM mag #DUNCAN Elevated at 1.39 on arrival. Appears baseline may be around 1-1.15 s/p 1L IVF, continue gentle fluid rehydration on admission. #Asthma Recent hospital stay for asthma exacerbation from 01/23 - 01/26. Currently not having symptoms Continue home inhalers. #hypothyroidism TSH WNL Continue Synthroid 50mcg daily #HTN - BP normotensive, hold benazepril + Bumex in setting of acute infection. Resume when able. #Class III obesity BMI 46.7 #Type 2 DM Recent A1c 6.7% Home regimen: metformin BID SSI correction while inpatient, adjust as necessary. DVT prophylaxis: heparin Code: full Case was discussed w/ Dr. Norris at time of admission. History of Present Illness Primary Care Provider: Rhona Canales This is a 69 year old female with past medical history of Asthma, recurrent UTI's, MS who presented to the ED on 02/17 for ~ 3 days of weakness & fatigue. Dali was seen and examined this morning. she reports that approximately 3 days ago she started to sleep more. She states her grand daughter noticed this & encouraged her to come to the ER. She states that she has slept for about 3 days and has only woke up to go to the bathroom. She states that given she was immobile she has not taken care of her wounds much. She reports a decreased appetite. she denies any fevers or chills. she did state she had some mild chest/epigastric discomfort in the ambulance but denies any currently. She reports no SOB worse than usual & her cough is at baseline. She does not feel she has any urinary urgency, frequency, dysuria or hematuria. She does note pain to her sacral wound area & is unsure if she has had an increase amount of discharge from it. While in the ED, she had a negative CXR; mild WBC of 11.84, Creatinine within baseline @ 1.39, lactate elevated at 2.8 w/ a repeat of 1.5. Mag low at 1.3, trop negative, procal normal at 0.35 & a TSH WNL. Wound, urine, and blood cultures all pending. She was given 1L IVF, Vancomycin, Cefepime & Magnesium. Allergies Allergy/AdvReac Type Severity Reaction Status Date / Time Fish Containing Products Allergy Intermediate ITCHY RASH Verified 01/23/25 19:57 shellfish derived Allergy Intermediate ITCHY RASH Verified 01/23/25 19:57 montelukast [From Singulair] Allergy Unknown CAN'T Verified 01/23/25 19:57 REMEMBER codeine AdvReac Mild NAUSEATED Verified 01/23/25 19:57 Home Medications Medication Instructions Recorded Confirmed Type benazepril 40 mg tablet 0 mg PO QAM 06/25/21 02/17/25 History omeprazole 20 mg capsule,delayed 20 mg PO PM 06/25/21 02/17/25 History release aspirin 81 mg tablet,delayed 81 mg PO QAM #30 tabs 08/16/21 02/17/25 Rx release atorvastatin 40 mg tablet 40 mg PO HS 07/20/23 02/17/25 History docusate sodium 100 mg capsule 100 mg PO PM PRN Constipation 07/26/23 02/17/25 History turmeric 400 mg capsule 400 mg PO QAM 07/26/23 02/17/25 History albuterol sulfate 2.5 mg/3 mL 2.5 mg continuous nebulization 09/25/23 02/17/25 History (0.083 %) solution for nebulization DIRECTED PRN Shortness Of Breath Or Wheezing diclofenac potassium 50 mg tablet 50 mg PO TID PRN Pain 09/25/23 02/17/25 History vitamin B complex 1 tab PO DAILY 09/25/23 02/17/25 History Wheelchair (Powered) (Power #1 ea 11/05/23 01/21/25 Rx Wheelchair) multivitamin with minerals-folic 1 tab PO DAILY 12/01/23 02/17/25 History acid 80 mcg chewable tablet (Centrum Adult 50 Plus) nystatin 100,000 unit/gram topical 1 applic topical BID PRN fungal 12/01/23 02/17/25 History powder (Klayesta) rash budesonide-formoterol HFA 160 2 puff inhalation BID #10.2 grams 12/28/23 02/17/25 Rx mcg-4.5 mcg/actuation aerosol inhaler inhalational spacing device #1 ea 12/28/23 01/21/25 Rx (Aerochamber MV spacer) albuterol sulfate 90 mcg/actuation 2 puff inhalation Q4H PRN 01/14/25 02/17/25 History aerosol inhaler Shortness Of Breath Or Wheezing ipratropium bromide 21 mcg (0.03 2 spray intranasal BID 01/14/25 02/17/25 History %) nasal spray bumetanide 0.5 mg tablet 0 mg PO AMPM 01/21/25 02/17/25 History levothyroxine 50 mcg tablet 50 mcg PO DAILYBB #30 tabs 01/26/25 02/17/25 Rx (Synthroid) umeclidinium 62.5 mcg/actuation 1 inh inhalation DAILY #30 ea 01/26/25 02/17/25 Rx blister powder for inhalation (Incruse Ellipta) metformin 500 mg tablet 1,000 mg PO BID 02/17/25 02/17/25 History Past Med/Surg History Problem List (Updated 02/17/25 @ 12:14 by Edwin Brar MD) Sepsis (Acute) Infected wound (Acute) Atelectasis Hypotension Cough (Acute) Asthma exacerbation (Acute) Shortness of breath (Acute) Candidal intertrigo (Acute) Weakness (Acute) Eosinophilic asthma Shortness of breath (Acute) Edema (Acute) Dyspnea on exertion History of UTI Thrush Yeast dermatitis (Acute) Generalized muscle weakness (Acute) Acute UTI (urinary tract infection) (Acute) Ventral hernia Diabetes Multiple sclerosis (Acute) UTI (urinary tract infection) (Acute) Abnormal finding on diagnostic imaging of left kidney Medical History Hypomagnesemia Hypothermia Hypomagnesemia Dyspnea Left-sided weakness DUNCAN (acute kidney injury) Brain TIA Acute respiratory failure with hypoxia Osteoarthritis of knees, bilateral Sinusitis, acute Morbid obesity with BMI of 50.0-59.9, adult Tachy-rowena syndrome GERD (gastroesophageal reflux disease) Hypothyroidism Pancreatitis Thrombocytopenia Peripheral edema Septic shock Hypomagnesemia Fungal dermatitis Asthma Hypertension Diabetes Influenza A Pneumonia Multiple sclerosis Surgical History H/O tubal ligation H/O sinus surgery History of arthroscopic knee surgery Hx of tonsillectomy H/O: hysterectomy No pertinent past surgical history Family History Other Family history non-contributory Social History Smoking Status: Never smoker Second Hand Exposure: No; Do You Dip or Chew Tobacco: No; Hx Alcohol Use: No Hx Substance Use: No Preferred Language: Divehi Communication Ability: Effective Manager Intensive Care Required: No Beliefs That Will Affect Care: None marital status: Current Living Situation: Spouse Current Living Situation Comment: Lives at home with spouse and granddaughter How many Children do You have: 2 Feels Safe at Home: Yes Diet: gluten free during the past year weight has: decreased > 10 lbs Assistive Devices: Nebulizer, Walker and Wheelchair Physical Exam Constitutional: no acute distress, morbidly obese. Neck: normal visual inspection Respiratory: normal respiratory effort, lungs clear to auscultation Cardiovascular: RRR, no murmur, no edema Gastrointestinal (Abdomen): normal bowel sounds, soft, nontender, no hepatosplenomegaly Skin: sacral wounds w/ erythema & excoriations. foul smelling. Neurologic: PERRL, EOMI, accommodation nl, no face palsy, no dysarthria Psychiatric: A+Ox3, euthymic affect Results & Data Results & Data Vital Signs (Past 12 Hours) Vital Signs Temp Pulse Pulse Resp BP BP Pulse Ox 02/17/25 11:30 84 18 111/81 97 02/17/25 11:00 81 17 110/77 97 02/17/25 10:54 87 18 119/59 L 97 02/17/25 09:49 94 H 02/17/25 09:39 36.5 C 92 H 18 102/62 97 O2 Del Method 02/17/25 11:30 Room Air 02/17/25 11:00 Room Air 02/17/25 10:54 Room Air 02/17/25 09:49 02/17/25 09:39 Room Air PG Care Time/CCT Total # of Minutes Spent Total Time Spent with Patient: Total time spent is greater than 50% in coordination of care (as documented) at patient's floor/unit and/or counseling patient: Coding Level of Care Code 49137 INT INP/OBS CARE 3/75MIN Diagnoses Sepsis A41.9 Infected wound T14.8XXA; L08.9 Acute UTI (urinary tract infection) N39.0 Weakness R53.1 Diabetes E11.9 DUNCAN (acute kidney injury) N17.9 Hypomagnesemia E83.42
[2025-02-17] MEDS ORDERED: ONDANSETRON INJ 2 MG/ML 2 ML VIAL IV PRN (15:36)
[2025-02-17] MEDS ORDERED: DICLOFENAC SODIUM 25 MG TABDR PO PRN (15:36)
[2025-02-17] MEDS ORDERED: POLYETHYLENE (MIRALAX) 17 GM PACK PO PRN (15:36)
[2025-02-17] MEDS ORDERED: ALBUTEROL HFA 8 GM INHALER INH PRN (15:36)
[2025-02-17] MEDS ORDERED: GLUCOSE 10 TAB/TUBE PO PRN (15:45)
[2025-02-17] MEDS ORDERED: CARBOHYDRATES FOR HYPOGLYCEMIA PO PRN (15:45)
[2025-02-17] MEDS ORDERED: DEXTROSE 50% 50 ML SYRINGE IV PRN (15:45)
[2025-02-17] MEDS ORDERED: GLUCAGON FOR INJ 1 MG VIAL SQ PRN (15:45)
[2025-02-17] MEDS ORDERED: GLUCOSE 40% GEL 15 GM TUBE PO PRN (15:45)
[2025-02-17] MEDS: MAGNESIUM SULFATE 1GM / D5W BAG IV ONE (16:02)
[2025-02-17] MEDS: ACETAMINOPHEN 325 MG TAB PO PRN (16:02)
[2025-02-17] MEDS: LACTATED RINGER'S 1,000 ML IV SCH (17:35)
--- NOTE | 2025-02-17 18:36 | Pharmacy Report ---
Pharmacy PK ABX Note - Date of Service February 17, 2025 - Assessment and Plan Assessment 69 year old F receiving vancomycin/cefepime for concerns for UTI/sacral wound infection. PMHx significant for asthma, recurrent UTI's. Presenting with worsening weakness/fatigue. Cultures pending. Plan Vancomycin * Loading dose: 2750 mg IV x 1 * Maintenance dose: 1000 mg IV every 24 hours * Regimen is predicted to achieve target AUC/DEVIN of 400-600 mg/L.hr * Plan to order level if continued >48 hours Pharmacy will continue to follow and will adjust dose/frequency as necessary. Thank you. Pharmacy has transitioned to AUC monitoring for vancomycin. AUC/DEVIN is the preferred PK/PD target and is associated with decreased risk of nephrotoxicity compared to traditional trough targets.
[2025-02-17] MEDS: INSULIN ASPART PER UNIT CHARGE SC SCH (20:11)
[2025-02-17] MEDS: HEPARIN SOD 5,000 UNIT/0.5 ML VIAL SQ SCH (21:25)
[2025-02-17] MEDS: DOCUSATE SODIUM 100 MG CAP PO PRN (21:25)
[2025-02-17] MEDS: CEFEPIME 2000MG 2,000 MG/20 ML SYR IV SCH (21:26)
[2025-02-17] MEDS: ATORVASTATIN 40 MG TAB PO SCH (21:27)
[2025-02-17] MEDS: IPRATROPIUM BROMIDE NASAL SPRAY 0.03% 30 ML NAE SCH (21:28)
[2025-02-18 04:57] LABS: Anion Gap 5.0 (3-11); Blood Urea Nitrogen 22.0 mg/dl (6-23); Calcium 8.2 mg/dl (8.6-10.3); Carbon Dioxide 25.0 mmol/L (21-32); Chloride 112.0 mmol/L (98-107); Creatinine Clr Calc Pharmacy 52.4 ml/min; Glucose 86.0 mg/dl (70-99(Fasting)); Magnesium 1.6 mg/dl (1.7-2.4); Potassium 3.6 mmol/L (3.5-5.1); Sodium 142.0 mmol/L (136-145)
[2025-02-18 05:30] LABS: Hematocrit (blood only) 31.6 % (37.0-47.0); Hemoglobin 10.1 g/dl (12.0-16.0); Mean Corpuscular Hemoglobin 30.1 pg (25.0-34.0); Mean Corpuscular Volume 94.0 fL (80.0-100.0); Platelet Count 220 K/uL (130-400); RDW Standard Deviation 61.1 fL (36.4-46.3); Red Blood Count 3.36 M/uL (4.20-5.40); White Blood Count 10.19 K/ul (4.8-10.8)
[2025-02-18] MEDS: NYSTATIN POWDER 15GM BTL EXT PRN (06:15)
[2025-02-18] MEDS: LEVOTHYROXINE SODIUM 50 MCG TABLET PO SCH (06:15)
[2025-02-18] MEDS: UMECLIDINIUM BROMIDE 62.5MCG/BLISTER 7 PUFFS/INHALER INH SCH (08:50)
[2025-02-18] MEDS: FLUTICASONE/VILANTEROL 200/25MCG 14 PUFFS/INHALER INH SCH (08:50)
[2025-02-18] MEDS: ASPIRIN 81 MG ECTAB PO SCH (08:50)
[2025-02-18 09:09] LABS: A calco-baum cmplx NotReported Not Detected (NotDetected); Bact fragilis Not Reported Not Detected (NotDetected); Blood Culture Id Panel See PCR Comment (NotDetected); C auris Not Reported Not Detected (NotDetected); Calbicans Not Reported Not Detected (NotDetected); Candida glabrata Not Reported Not Detected (NotDetected); Candida krusei Not Reported Not Detected (NotDetected); Cneoformans/gatti Not Reported Not Detected (NotDetected); Cparapsilosis Not Reported Not Detected (NotDetected); Ctropicalis Not Reported Not Detected (NotDetected); E cloacae compx Not Reported Not Detected (NotDetected); Efaecalis Not Reported DETECTED (NotDetected); Efaecium Not Reported Not Detected (NotDetected); Enterobacterales Not Reported Not Detected (NotDetected); Escherichia coli Not Reported Not Detected (NotDetected); H influenzae Not Reported Not Detected (NotDetected); K aerogenes Not Reported Not Detected (NotDetected); Koxytoca Not Reported Not Detected (NotDetected); Kpneumoniae grp Not Reported Not Detected (NotDetected); Lmonocyt Not Reported Not Detected (NotDetected); N meningitidis Not Reported Not Detected (NotDetected); P aeruginosa Not Reported Not Detected (NotDetected); Proteus spp Not Reported Not Detected (NotDetected); Salmonella spp Not Reported Not Detected (NotDetected); Staph lugdunensis Not Reported Not Detected (NotDetected); Staph spp. Not Reported Not Detected (NotDetected); Staphaureus Not Reported Not Detected (NotDetected); Staphepi Not Reported Not Detected (NotDetected); Stenmaltophilia Not Reported Not Detected (NotDetected); Strep agal(GrpB) Not Reported Not Detected (NotDetected); Strep pneum Not Reported Not Detected (NotDetected); Strep pyog (GrpA) Not Reported Not Detected (NotDetected); Strep spp Not Reported Not Detected (NotDetected); VanAB Resistant Gene VRE Not Detected (NotDetected)
[2025-02-18] MEDS: VANCOMYCIN HCL 1,000 MG/270 ML BAG IV SCH (09:38)
[2025-02-18 09:40] LABS: Enterococcus faecalis DETECTED (NotDetected)
--- NOTE | 2025-02-18 12:11 | Hospitalist Progress Note ---
<Statement entered by Antonia Norris MD - 02/19/25 18:36> Sacral osteomyelitis Wound culture with moderate Bacteroides fragilis - change abx to pip-tazo for anaerobic coverage Blood cultures 02/17 - one bottle out of four with three organisms, which suggests contamination. She is on vancomycin. Benefit from ID consult Friday Blood Culture Aerobic Preliminary 02/19/25-1345 Organism 1 Enterococcus faecalis Sens Sensitivities to Follow Blood Culture PCR Panel If viewing in EMR, results available under LAB Serology tab. Organism 2 Corynebacterium aurimucos grp Sens No Sensitivities to Follow Organism 3 Pseudoglutamicibacter cumminsi Sens No Sensitivities to Follow Date of Service February 18, 2025 Assessment & Plan (1) Sepsis: (2) Infected wound: (3) Acute UTI (urinary tract infection): (4) Weakness: (5) Diabetes: (6) DUNCAN (acute kidney injury): (7) Hypomagnesemia: Plan This is a 69 year old female with past medical history of Asthma, recurrent UTI's, MS who presented to the ED on 02/17 for ~ 3 days of weakness & fatigue. While in the ED, she had a negative CXR; mild WBC of 11.84, Creatinine within baseline @ 1.39, lactate elevated at 2.8 w/ a repeat of 1.5. Mag low at 1.3, trop negative, procal normal at 0.35 & a TSH WNL. Wound, urine, and blood cultures all pending. She was given 1L IVF, Vancomycin, Cefepime & Magnesium. #Sacral wound - osteomyelitis Stage IV sacral decubitus POA CTAP w/ IV contrast: sacral decubitus ulcer w/ osteomyelitis of coccyx & sacrococcygeal junction, new/progressed from 07/25/2021. No abscess; pannus contains large hernia containing sm/lg bowel; probable cellulitis of lower pannus CBC w/ resolution of leukocytosis. Procal remains negative x 2. BC prelim showing 1 bottle + for gm pos + & gm + bacilli. - await further results. Continue IV Cefepime & Vancomycin Wound nurse consulted: recommending the imaging + surgical consult General surgery consulted, appreciate recommendations. switched to low air loss mattress; waffle cushion; q2h re-positioning. Morphine q3h prn for pain. #Sepsis POA/UTI Urinalysis + ; UC pending Continue abx as above. s/p ramirez catheter placement - void trial prior to dc & she does not have a chronic ramirez #Hypomagnesemia acute on chronic. Baseline ~1.5-1.6 Low at 1.6 s/p repletion Consider PO mag supplement on discharge. AM mag #DUNCAN - resolved Elevated at 1.39 on arrival. Now stable at 1.10 Appears baseline may be around 1-1.15 s/p 1L IVF, continue gentle fluid rehydration on admission. #Asthma Recent hospital stay for asthma exacerbation from 01/23 - 01/26. Currently not having symptoms Continue home inhalers. #hypothyroidism TSH WNL Continue Synthroid 50mcg daily #HTN - BP normotensive, hold benazepril + Bumex in setting of acute infection. Resume when able. #Class III obesity BMI 46.7 #Type 2 DM Recent A1c 6.7% Home regimen: metformin BID SSI correction while inpatient, adjust as necessary. DVT prophylaxis: heparin Code: full Discussed w/ general surgery & wound nurse 02/18. Admission and Anticipated Discharge Date Admission Date: February 17, 2025 Jose Mcnally seen & examined this morning & afternoon. This morning she felt okay but tired. When re-examined this afternoon she was tearful reporting 10/10 pain in her sacral area. Was given pain medication with little relief. Physical Exam Constitutional: moderate distress Respiratory: normal respiratory effort, lungs clear to auscultation Cardiovascular: RRR, no murmur, no edema Skin: circular area of purulent wound w/ tunneling present. excoriations w/ open sores that appear erythematous around. . Neurologic: PERRL, EOMI, accommodation nl, no face palsy, no dysarthria Psychiatric: A+Ox3, euthymic affect Results & Data Results & Data Vital Signs (Past 12 Hours) Vital Signs Temp Pulse Pulse Resp BP BP Pulse Ox 02/18/25 11:28 36.4 C L 89 18 99/62 L 97 02/18/25 08:12 36.4 C L 88 19 119/72 94 02/18/25 06:45 84 02/18/25 03:43 36.3 C L 75 18 109/63 94 O2 Del Method 02/18/25 11:28 Room Air 02/18/25 08:12 Room Air 02/18/25 06:45 02/18/25 03:43 Room Air PG Care Time/CCT Total # of Minutes Spent Total Time Spent with Patient: Total time spent is greater than 50% in coordination of care (as documented) at patient's floor/unit and/or counseling patient: Coding Level of Care Code 95551 SUB INP/OBS CARE 3/50MIN Diagnoses Sepsis A41.9 Infected wound T14.8XXA; L08.9 Acute UTI (urinary tract infection) N39.0 Weakness R53.1 Diabetes E11.9 DUNCAN (acute kidney injury) N17.9 Hypomagnesemia E83.42
[2025-02-18] MEDS ORDERED: MoRPHine SULFATE 2 MG/ML CARP IV PRN ×2 (12:25→16:06)
[2025-02-18] MEDS: OPTIRAY 320 100ml IV ONE (13:11)
[2025-02-18] MEDS: diphenhydrAMINE 50 MG/ML VIAL IV ONE (13:36)
--- NOTE | 2025-02-18 13:37 | CT Scan Report ---
ABDOMEN AND PELVIS CT WITH IV CONTRAST CT DOSE: 1700.05 mGy.cm HISTORY: Patient presents with sacral decubitus ulcer sacral wound TECHNIQUE: Multiaxial CT images of the abdomen and pelvis were performed following the IV administrat ion of 94 cc of Optiray, A dose lowering technique was utilized adhering to the principles of ALARA. COMPARISON STUDY: CT chest 01/23/2025, CT abdomen and pelvis 07/25/2021 FINDINGS: Mild cardiomegaly. There is a bibasilar linear atelectasis/scarring are present. No pneumat osis or pneumoperitoneum. Unremarkable spleen, and adrenal glands. Cholecystectomy. Hepatic steatosis . No liver lesion or evidence of cirrhosis. Patency of the hepatic and portal veins. Mildly atrophic pancreas. There is trace edema in the pancreaticoduodenal groove surrounding the uncinate process, fi rst, second and third portions of the duodenum. Mild duodenal wall thickening. Similar more pronounce d findings were present on the prior study. 2.8 cm exophytic lesion suggestive of a probable cyst involves the anterior interpolar left kidney. 4 mm nonobstructing calculus of the inferior pole. No hydronephrosis. Decompressed bladder with Dangelo catheter in place. Moderate bladder wall thickening. Hysterectomy. Atherosclerosis of the aorta and b ranch vessels. No lymphadenopathy. No bowel obstruction. Colonic diverticulosis without acute diverticulitis. No CT evidence of acute ap pendicitis. There is a large midline hernia which involves the patient's pannus, opening of which abel sures approximately 9 x 9 cm. The pancreas hernia contains the majority of the patient's small bowel as well as nonobstructed large bowel loops. Borderline enlarged mesenteric lymph nodes. Subcutaneous edema of the lower intra-abdominal wall pannus. Additional right lateral abdominal wall herniation/di astases measures up to 5 cm on image 213 series 3. This is unchanged. A sacral decubitus ulcer is not ed without discrete abscess. Chronic appearing erosive changes are noted involving the coccyx and sac rococcygeal junction which are new from prior. IMPRESSION: 1. Sacral decubitus ulcer with osteomyelitis of the coccyx and sacrococcygeal junction, new/progresse d from 07/25/2021. 2. No abscess. 3. Pannus contains a large hernia containing small and large bowel, similar to prior without obstruct ion. 4. Probable cellulitis of the lower pannus. 5. Inflammatory changes involving the duodenum and uncinate process pancreas may represent a nonspeci fic duodenitis versus pancreatitis. Correlate with serum lipase. 6. Nonobstructing left renal calculus. ACT 112: Negative or not required by law. The above report was generated using voice recognition software. It may contain grammatical, syntax o r spelling errors. Electronically signed by: Pedro Lucas M.D. 02/18/2025 1:36 PM
[2025-02-18] MEDS: MoRPHine SULFATE 2 MG/ML CARP IV PRN ×2 (14:12→17:37)
[2025-02-18] MEDS: MoRPHine SULFATE 2 MG/ML CARP IV STA (15:47)
[2025-02-18] MEDS: ACETAMINOPHEN 500 MG TAB PO SCH (15:47)
[2025-02-19 06:16] LABS: Hematocrit (blood only) 33.4 % (37.0-47.0); Hemoglobin 10.5 g/dl (12.0-16.0); Mean Corpuscular Hemoglobin 30.1 pg (25.0-34.0); Mean Corpuscular Volume 95.7 fL (80.0-100.0); Platelet Count 233 K/uL (130-400); RDW Standard Deviation 62.8 fL (36.4-46.3); Red Blood Count 3.49 M/uL (4.20-5.40); White Blood Count 9.03 K/ul (4.8-10.8)
[2025-02-19 07:11] LABS: Anion Gap 7.0 (3-11); Blood Urea Nitrogen 19.0 mg/dl (6-23); Calcium 8.9 mg/dl (8.6-10.3); Carbon Dioxide 27.0 mmol/L (21-32); Chloride 110.0 mmol/L (98-107); Creatinine Clr Calc Pharmacy 51.2 ml/min; Glucose 95.0 mg/dl (70-99(Fasting)); Magnesium 1.5 mg/dl (1.7-2.4); Potassium 3.7 mmol/L (3.5-5.1); Sodium 144.0 mmol/L (136-145)
[2025-02-19] MEDS: MAGNESIUM OXIDE 400 MG TAB PO SCH (09:18)
[2025-02-19] MEDS: MAGNESIUM SULFATE / D5W 1 GM/100 ML BAG IV ONE (09:24)
--- NOTE | 2025-02-19 09:51 | Surgery Consultation ---
Date of Consultation February 19, 2025 Assessment & Plan (1) Infected wound: sacral decubitus with osteo will likely debride on Friday will need wound vac and wound care postop History of Present Illness Attending Physician: Nirav Bustamante History of Present Illness This is a 69-year-old morbidly obese basically sedentary female with decubitus ulcer in her sacral region. This is tender for her. She denies any fevers chills any other constitutional symptoms. Allergies Allergy/AdvReac Type Severity Reaction Status Date / Time Fish Containing Products Allergy Intermediate ITCHY RASH Verified 01/23/25 19:57 shellfish derived Allergy Intermediate ITCHY RASH Verified 01/23/25 19:57 montelukast [From Singulair] Allergy Unknown CAN'T Verified 01/23/25 19:57 REMEMBER codeine AdvReac Mild NAUSEATED Verified 01/23/25 19:57 Home Medications Medication Instructions Recorded Confirmed Type benazepril 40 mg tablet 0 mg PO QAM 06/25/21 02/17/25 History omeprazole 20 mg capsule,delayed 20 mg PO PM 06/25/21 02/17/25 History release aspirin 81 mg tablet,delayed 81 mg PO QAM #30 tabs 08/16/21 02/17/25 Rx release atorvastatin 40 mg tablet 40 mg PO HS 07/20/23 02/17/25 History docusate sodium 100 mg capsule 100 mg PO PM PRN Constipation 07/26/23 02/17/25 History turmeric 400 mg capsule 400 mg PO QAM 07/26/23 02/17/25 History albuterol sulfate 2.5 mg/3 mL 2.5 mg continuous nebulization 09/25/23 02/17/25 History (0.083 %) solution for nebulization DIRECTED PRN Shortness Of Breath Or Wheezing diclofenac potassium 50 mg tablet 50 mg PO TID PRN Pain 09/25/23 02/17/25 History vitamin B complex 1 tab PO DAILY 09/25/23 02/17/25 History Wheelchair (Powered) (Power #1 ea 11/05/23 01/21/25 Rx Wheelchair) multivitamin with minerals-folic 1 tab PO DAILY 12/01/23 02/17/25 History acid 80 mcg chewable tablet (Centrum Adult 50 Plus) nystatin 100,000 unit/gram topical 1 applic topical BID PRN fungal 12/01/23 02/17/25 History powder (Klayesta) rash budesonide-formoterol HFA 160 2 puff inhalation BID #10.2 grams 12/28/23 02/17/25 Rx mcg-4.5 mcg/actuation aerosol inhaler inhalational spacing device #1 ea 12/28/23 01/21/25 Rx (Aerochamber MV spacer) albuterol sulfate 90 mcg/actuation 2 puff inhalation Q4H PRN 01/14/25 02/17/25 History aerosol inhaler Shortness Of Breath Or Wheezing ipratropium bromide 21 mcg (0.03 2 spray intranasal BID 01/14/25 02/17/25 History %) nasal spray bumetanide 0.5 mg tablet 0 mg PO AMPM 01/21/25 02/17/25 History levothyroxine 50 mcg tablet 50 mcg PO DAILYBB #30 tabs 01/26/25 02/17/25 Rx (Synthroid) umeclidinium 62.5 mcg/actuation 1 inh inhalation DAILY #30 ea 01/26/25 02/17/25 Rx blister powder for inhalation (Incruse Ellipta) metformin 500 mg tablet 1,000 mg PO BID 02/17/25 02/17/25 History Patient History Medical History Hypomagnesemia Hypothermia Hypomagnesemia Dyspnea Left-sided weakness DUNCAN (acute kidney injury) Brain TIA Acute respiratory failure with hypoxia Osteoarthritis of knees, bilateral Sinusitis, acute Morbid obesity with BMI of 50.0-59.9, adult Tachy-rowena syndrome GERD (gastroesophageal reflux disease) Hypothyroidism Pancreatitis Thrombocytopenia Peripheral edema Septic shock Hypomagnesemia Fungal dermatitis Asthma Hypertension Diabetes Influenza A Pneumonia Multiple sclerosis Surgical History H/O tubal ligation H/O sinus surgery History of arthroscopic knee surgery Hx of tonsillectomy H/O: hysterectomy No pertinent past surgical history Family History Other Family history non-contributory Social History Smoking Status: Never smoker Second Hand Exposure: Yes; Do You Dip or Chew Tobacco: No; Hx Alcohol Use: No Hx Substance Use: No Preferred Language: Tajik Communication Ability: Effective Medical Appointment Scheduler Required: No Beliefs That Will Affect Care: None marital status: Current Living Situation: Family Current Living Situation Comment: Home with and granddaughter How many Children do You have: 2 Other Information That Helps Us Care for You: No Feels Safe at Home: Yes Diet: gluten free during the past year weight has: decreased > 10 lbs Assistive Devices: Bedside Commode, Walker and Wheelchair Review of Systems Constitutional: no fever and no chills Eyes: no problem reported Ear, Nose, Mouth, Throat: no problem reported Respiratory: no cough and no dyspnea Cardiovascular: no chest pain Gastrointestinal: no abdominal pain, no nausea and no vomiting Genitourinary: no dysuria Musculoskeletal: + back pain Integumentary: + skin ulcer Neurologic: + generalized weakness; no localized wea kness Psychiatric: no behavioral changes Physical Exam Constitutional: WD/WN, vitals as above + morbidly obese Eyes: no scleral abnormality ENMT: external ear and nose normal, oropharynx normal Neck: trachea midline Respiratory: normal respiratory effort, lungs clear to auscultation Cardiovascular: RRR, no murmur, no edema Gastrointestinal (Abdomen): Inspection/Auscultation: abdomen normal to inspection; abdomen not distended Percussion/Palpation: abdomen soft Musculoskeletal: Head/Neck/Chest: normocephalic and head atraumatic Skin: no rashes, warm and dry Results & Data Vital Signs (Past 12 Hours) Vital Signs Temp Pulse Pulse Resp BP BP Pulse Ox 02/19/25 07:38 36.3 C L 73 18 107/73 92 02/19/25 07:19 80 02/19/25 03:15 36.5 C 78 20 109/69 93 02/18/25 22:36 36.6 C 84 20 101/64 95 O2 Del Method 02/19/25 07:38 Room Air 02/19/25 07:19 02/19/25 03:15 Room Air 02/18/25 22:36 Room Air Diagnostic Findings ABDOMEN AND PELVIS CT WITH IV CONTRAST CT DOSE: 1700.05 mGy.cm HISTORY: Patient presents with sacral decubitus ulcer sacral wound TECHNIQUE: Multiaxial CT images of the abdomen and pelvis were performed following the IV administration of 94 cc of Optiray, A dose lowering technique was utilized adhering to the principles of ALARA. COMPARISON STUDY: CT chest 01/23/2025, CT abdomen and pelvis 07/25/2021 FINDINGS: Mild cardiomegaly. There is a bibasilar linear atelectasis/scarring are present. No pneumatosis or pneumoperitoneum. Unremarkable spleen, and adrenal glands. Cholecystectomy. Hepatic steatosis. No liver lesion or evidence of cirrhosis. Patency of the hepatic and portal veins. Mildly atrophic pancreas. There is trace edema in the pancreaticoduodenal groove surrounding the uncinate process, first, second and third portions of the duodenum. Mild duodenal wall thickening. Similar more pronounced findings were present on the prior study. 2.8 cm exophytic lesion suggestive of a probable cyst involves the anterior interpolar left kidney. 4 mm nonobstructing calculus of the inferior pole. No hydronephrosis. Decompressed bladder with Dangelo catheter in place. Moderate bladder wall thickening. Hysterectomy. Atherosclerosis of the aorta and branch vessels. No lymphadenopathy. No bowel obstruction. Colonic diverticulosis without acute diverticulitis. No CT evidence of acute appendicitis. There is a large midline hernia which involves the patient's pannus, opening of which measures approximately 9 x 9 cm. The pancreas hernia contains the majority of the patient's small bowel as well as nonobstructed large bowel loops. Borderline enlarged mesenteric lymph nodes. Mascorro bcutaneous edema of the lower intra-abdominal wall pannus. Additional right lateral abdominal wall herniation/diastases measures up to 5 cm on image 213 series 3. This is unchanged. A sacral decubitus ulcer is noted without discrete abscess. Chronic appearing erosive changes are noted involving the coccyx and sacrococcygeal junction which are new from prior. IMPRESSION: 1. Sacral decubitus ulcer with osteomyelitis of the coccyx and sacrococcygeal junction, new/progressed from 07/25/2021. 2. No abscess. 3. Pannus contains a large hernia containing small and large bowel, similar to prior without obstruction. 4. Probable cellulitis of the lower pannus. 5. Inflammatory changes involving the duodenum and uncinate process pancreas may represent a nonspecific duodenitis versus pancreatitis. Correlate with serum lipase. 6. Nonobstructing left renal calculus.
--- NOTE | 2025-02-19 11:27 | Pharmacy Report ---
Pharmacy PK ABX Note - Date of Service February 19, 2025 - Assessment and Plan Assessment 02/19 Random level: 14.1 mcg/mL this morning, predicts low end of goal. Will adjust dose slightly today to target mid-range to ensure therapeutic level is achieved. 1/2 blood cultures with E. faecalis + gramp positive bacilli. Sacrum with pin- point growth. urine 3+ organisms. 02/18 69 year old F receiving vancomycin/cefepime for concerns for UTI/sacral wound infection. PMHx significant for asthma, recurrent UTI's. Presenting with worsening weakness/fatigue. Cultures pending. Plan Vancomycin * Loading dose: 2750 mg IV x 1 * Maintenance dose: 1000 mg IV every 24 hours * Regimen is predicted to achieve target AUC/DEVIN of 400-600 mg/L.hr, although low end * Adjust maintenance dose to 1250 mg every 24 hours * Will obtain random level 02/22. Pharmacy will continue to follow and will adjust dose/frequency as necessary. Thank you. Pharmacy has transitioned to AUC monitoring for vancomycin. AUC/DEVIN is the preferred PK/PD target and is associated with decreased risk of nephrotoxicity compared to traditional trough targets.
--- NOTE | 2025-02-19 12:06 | Hospitalist Progress Note ---
Date of Service February 19, 2025 Assessment & Plan (1) Sepsis: (2) Infected wound: (3) Acute UTI (urinary tract infection): (4) Weakness: (5) Diabetes: (6) DUNCAN (acute kidney injury): (7) Hypomagnesemia: Plan This is a 69 year old female with past medical history of Asthma, recurrent UTI's, MS who presented to the ED on 02/17 for ~ 3 days of weakness & fatigue. While in the ED, she had a negative CXR; mild WBC of 11.84, Creatinine within baseline @ 1.39, lactate elevated at 2.8 w/ a repeat of 1.5. Mag low at 1.3, trop negative, procal normal at 0.35 & a TSH WNL. Wound, urine, and blood cultures all pending. She was given 1L IVF, Vancomycin, Cefepime & Magnesium. #Sacral wound - osteomyelitis Stage IV sacral decubitus POA CTAP w/ IV contrast: sacral decubitus ulcer w/ osteomyelitis of coccyx & sacrococcygeal junction, new/progressed from 07/25/2021. No abscess; pannus contains large hernia containing sm/lg bowel; probable cellulitis of lower pannus CBC w/ resolution of leukocytosis. Procal remains negative x 2. BC showing in 1 of 2 bottles: E faecalis, Corynebacterium aurimucos grp, and pseduoglutamicibacter cumminsi --> repeat BC ordered 02/19 Wound culture showing bacteroids fragilis Continue IV Cefepime & Vancomycin, IV Flagyl added 02/19. Wound nurse consulted: recommending the imaging + surgical consult General surgery consulted --> will likely go to OR on 02/21 for debridement. switched to low air loss mattress; waffle cushion; q2h re-positioning. Morphine q3h prn for pain. #Sepsis POA/UTI Urinalysis + ; UC --> 3 types of organisms present. Did reach out to [facility] to see if they can run urine culture for bacteria + sensitivities given + BC containing 3 organisms. Continue abx as above. s/p ramirez catheter placement - void trial prior to dc & she does not have a chronic ramirez #Hypomagnesemia acute on chronic. Baseline ~1.5-1.6 Low at 1.5 s/p IV repletion Added Mag Oxide daily. AM mag #DUNCAN - resolved Elevated at 1.39 on arrival. Now stable at 1.12 Appears baseline may be around 1-1.15 s/p 1L IVF, continue gentle fluid rehydration on admission. #Asthma Recent hospital stay for asthma exacerbation from 01/23 - 01/26. Currently not having symptoms Continue home inhalers. #hypothyroidism TSH WNL Continue Synthroid 50mcg daily #HTN - BP normotensive, hold benazepril + Bumex in setting of acute infection. Resume when able. #Class III obesity BMI 46.7 #Type 2 DM Recent A1c 6.7% Home regimen: metformin BID SSI correction while inpatient, adjust as necessary. DVT prophylaxis: heparin Code: full Admission and Anticipated Discharge Date Admission Date: February 17, 2025 Jose Mcnally seen and examined this morning. She reports she is still tired but her buttock pain is more controlled today. Denies any additional symptoms. Physical Exam Constitutional: no acute distress Respiratory: normal respiratory effort, lungs clear to auscultation Cardiovascular: RRR, no murmur, no edema Skin: open wounds on skin folds appear without purulent drainage. Neurologic: PERRL, EOMI, accommodation nl, no face palsy, no dysarthria Psychiatric: A+Ox3, euthymic affect Results & Data Results & Data Vital Signs (Past 12 Hours) Vital Signs Temp Pulse Pulse Resp BP BP BP 02/19/25 11:42 36.3 C L 85 18 105/70 02/19/25 07:38 36.3 C L 73 18 107/73 02/19/25 07:19 80 02/19/25 03:15 36.5 C 78 20 109/69 Pulse Ox O2 Del Method 02/19/25 11:42 97 Room Air 02/19/25 07:38 92 Room Air 02/19/25 07:19 02/19/25 03:15 93 Room Air PG Care Time/CCT Total # of Minutes Spent Total Time Spent with Patient: Total time spent is greater than 50% in coordination of care (as documented) at patient's floor/unit and/or counseling patient: Coding Level of Care Code 98363 SUB INP/OBS CARE 3/50MIN Diagnoses Sepsis A41.9 Infected wound T14.8XXA; L08.9 Acute UTI (urinary tract infection) N39.0 Weakness R53.1 Diabetes E11.9 DUNCAN (acute kidney injury) N17.9 Hypomagnesemia E83.42
[2025-02-19] MEDS: metroNIDAZOLE 500 MG/100 ML BAG IV SCH (16:06)
[2025-02-20] MEDS: VANCOMYCIN HCL 1,250 MG in SODIUM CHLORIDE 0.9% 250 ML IV SCH (06:08)
[2025-02-20 06:23] LABS: Hematocrit (blood only) 30.0 % (37.0-47.0); Hemoglobin 9.7 g/dl (12.0-16.0); Mean Corpuscular Hemoglobin 30.3 pg (25.0-34.0); Mean Corpuscular Volume 93.8 fL (80.0-100.0); Platelet Count 210 K/uL (130-400); RDW Standard Deviation 59.6 fL (36.4-46.3); Red Blood Count 3.20 M/uL (4.20-5.40); White Blood Count 7.80 K/ul (4.8-10.8)
[2025-02-20 06:35] LABS: Anion Gap 4.0 (3-11); Blood Urea Nitrogen 21.0 mg/dl (6-23); Calcium 8.5 mg/dl (8.6-10.3); Carbon Dioxide 26.0 mmol/L (21-32); Chloride 112.0 mmol/L (98-107); Creatinine Clr Calc Pharmacy 62.3 ml/min; Glucose 104.0 mg/dl (70-99(Fasting)); Magnesium 1.5 mg/dl (1.7-2.4); Potassium 3.7 mmol/L (3.5-5.1); Sodium 142.0 mmol/L (136-145)
[2025-02-20 07:36] LABS: A calco-baum cmplx NotReported Not Detected (NotDetected); Bact fragilis Not Reported Not Detected (NotDetected); Blood Culture Id Panel PCR Panel Negative (NotDetected); C auris Not Reported Not Detected (NotDetected); Calbicans Not Reported Not Detected (NotDetected); Candida glabrata Not Reported Not Detected (NotDetected); Candida krusei Not Reported Not Detected (NotDetected); Cneoformans/gatti Not Reported Not Detected (NotDetected); Cparapsilosis Not Reported Not Detected (NotDetected); Ctropicalis Not Reported Not Detected (NotDetected); E cloacae compx Not Reported Not Detected (NotDetected); Efaecalis Not Reported Not Detected (NotDetected); Efaecium Not Reported Not Detected (NotDetected); Enterobacterales Not Reported Not Detected (NotDetected); Escherichia coli Not Reported Not Detected (NotDetected); H influenzae Not Reported Not Detected (NotDetected); K aerogenes Not Reported Not Detected (NotDetected); Koxytoca Not Reported Not Detected (NotDetected); Kpneumoniae grp Not Reported Not Detected (NotDetected); Lmonocyt Not Reported Not Detected (NotDetected); N meningitidis Not Reported Not Detected (NotDetected); P aeruginosa Not Reported Not Detected (NotDetected); Proteus spp Not Reported Not Detected (NotDetected); Salmonella spp Not Reported Not Detected (NotDetected); Staph lugdunensis Not Reported Not Detected (NotDetected); Staph spp. Not Reported Not Detected (NotDetected); Staphaureus Not Reported Not Detected (NotDetected); Staphepi Not Reported Not Detected (NotDetected); Stenmaltophilia Not Reported Not Detected (NotDetected); Strep agal(GrpB) Not Reported Not Detected (NotDetected); Strep pneum Not Reported Not Detected (NotDetected); Strep pyog (GrpA) Not Reported Not Detected (NotDetected); Strep spp Not Reported Not Detected (NotDetected)
[2025-02-20] MEDS: MAGNESIUM SULFATE / D5W 1 GM/100 ML BAG IV SCH (08:33)
--- NOTE | 2025-02-20 09:44 | Surgery Progress Note ---
Date of Service February 20, 2025 Assessment & Plan (1) Infected wound: Plan: will plan debridement of sacral decubitus tomorrow Admission and Anticipated Discharge Date Admission Date: February 17, 2025 Subjective no complaints Review of Systems Constitutional: no fever and no chills Respiratory: no dyspnea Cardiovascular: no chest pain Gastrointestinal: no abdominal pain Neurologic: no localized weakness Psychiatric: no behavioral changes Physical Exam Constitutional: WD/WN, vitals as above Respiratory: normal respiratory effort Cardiovascular: Rate/Rhythm: regular rate and regular rhythm Gastrointestinal (Abdomen): Inspection/Auscultation: abdomen normal to inspection Musculoskeletal: Spine: + sacral erythema (decubitus ulcer with gangrenous tissue) Skin: no rashes, warm and dry Results & Data Vital Signs (Past 12 Hours) Vital Signs Temp Pulse Pulse Resp BP BP Pulse Ox 02/20/25 09:09 02/20/25 07:41 36.3 C L 81 16 109/71 95 02/20/25 05:17 80 02/20/25 04:00 36.7 C 70 18 118/67 91 02/19/25 22:35 36.4 C L 70 18 117/69 95 O2 Del Method 02/20/25 09:09 Room Air 02/20/25 07:41 Room Air 02/20/25 05:17 02/20/25 04:00 Room Air 02/19/25 22:35 Room Air
--- NOTE | 2025-02-20 13:49 | Hospitalist Progress Note ---
Date of Service February 20, 2025 Assessment & Plan (1) Sepsis: (2) Infected wound: (3) Acute UTI (urinary tract infection): (4) Weakness: (5) Diabetes: (6) DUNCAN (acute kidney injury): (7) Hypomagnesemia: Plan This is a 69 year old female with past medical history of Asthma, recurrent UTI's, MS who presented to the ED on 02/17 for ~ 3 days of weakness & fatigue. While in the ED, she had a negative CXR; mild WBC of 11.84, Creatinine within baseline @ 1.39, lactate elevated at 2.8 w/ a repeat of 1.5. Mag low at 1.3, trop negative, procal normal at 0.35 & a TSH WNL. Wound, urine, and blood cultures all pending. She was given 1L IVF, Vancomycin, Cefepime & Magnesium. #Sacral wound - osteomyelitis Stage IV sacral decubitus POA CTAP w/ IV contrast: sacral decubitus ulcer w/ osteomyelitis of coccyx & sacrococcygeal junction, new/progressed from 07/25/2021. No abscess; pannus contains large hernia containing sm/lg bowel; probable cellulitis of lower pannus Leukocytosis resolved. . Procal negative x 2. BC showing in 1 of 2 bottles: E faecalis, Corynebacterium aurimucos grp, and pseduoglutamicibacter cumminsi - sensitivities still pending. Repeat BC showing gram + bacilli in 1 of 2 bottles. Wound culture showing bacteroids fragilis Continue IV Cefepime & Vancomycin, IV Flagyl added 02/19. Consider ID consult dependent upon sensitivities results. Wound nurse consulted: recommending the imaging + surgical consult General surgery consulted --> will likely go to OR on 02/21 for debridement. NPO after midnight. low air loss mattress; waffle cushion; q2h re-positioning. Scheduled Tylenol; Morphine q3h prn for pain. #Sepsis POA/UTI Urinalysis + ; UC --> 3 types of organisms present. - discussed w/ micro 02/20 - culture likely contaminated. Continue abx as above. s/p ramirez catheter placement - void trial prior to dc & she does not have a chronic ramirez #Hypomagnesemia acute on chronic. Baseline ~1.5-1.6 Low at 1.5 s/p IV repletion Added Mag Oxide daily. AM mag #DUNCAN - resolved Elevated at 1.39 on arrival. Now stable at 0.92 Appears baseline may be around 1-1.15 s/p 1L IVF, continue gentle fluid rehydration on admission. #Asthma Recent hospital stay for asthma exacerbation from 01/23 - 01/26. Currently not having symptoms Continue home inhalers. #hypothyroidism TSH WNL Continue Synthroid 50mcg daily #HTN - BP normotensive, hold benazepril + Bumex in setting of acute infection. Resume when able. #Class III obesity BMI 46.7 #Type 2 DM Recent A1c 6.7% Home regimen: metformin BID SSI correction while inpatient, adjust as necessary. DVT prophylaxis: heparin - hold until after debridement of wound in OR Code: full Updated family at bedside 02/20. Admission and Anticipated Discharge Date Admission Date: February 17, 2025 Jose Mcnally seen and examined this morning. She reports she is feeling okay but tired. States her sacral pain has been controlled. Physical Exam Constitutional: no acute distress Respiratory: normal respiratory effort Cardiovascular: no LE edema Neurologic: PERRL, EOMI, accommodation nl, no face palsy, no dysarthria Psychiatric: A+Ox3, euthymic affect Results & Data Results & Data Vital Signs (Past 12 Hours) Vital Signs Temp Pulse Pulse Resp BP BP Pulse Ox 02/20/25 11:21 36.3 C L 96 H 18 111/71 93 02/20/25 09:09 02/20/25 07:41 36.3 C L 81 16 109/71 95 02/20/25 05:17 80 02/20/25 04:00 36.7 C 70 18 118/67 91 O2 Del Method 02/20/25 11:21 Room Air 02/20/25 09:09 Room Air 02/20/25 07:41 Room Air 02/20/25 05:17 02/20/25 04:00 Room Air PG Care Time/CCT Total # of Minutes Spent Total Time Spent with Patient: Total time spent is greater than 50% in coordination of care (as documented) at patient's floor/unit and/or counseling patient: Coding Level of Care Code 03787 SUB INP/OBS CARE 3/50MIN Diagnoses Sepsis A41.9 Infected wound T14.8XXA; L08.9 Acute UTI (urinary tract infection) N39.0 Weakness R53.1 Diabetes E11.9 DUNCAN (acute kidney injury) N17.9 Hypomagnesemia E83.42
[2025-02-21] MEDS: VANCOMYCIN LEVEL ONE (06:00)
[2025-02-21 06:21] LABS: Hematocrit (blood only) 32.7 % (37.0-47.0); Hemoglobin 10.7 g/dl (12.0-16.0); Mean Corpuscular Hemoglobin 30.1 pg (25.0-34.0); Mean Corpuscular Volume 92.1 fL (80.0-100.0); Platelet Count 249 K/uL (130-400); RDW Standard Deviation 58.6 fL (36.4-46.3); Red Blood Count 3.55 M/uL (4.20-5.40); White Blood Count 9.08 K/ul (4.8-10.8)
[2025-02-21 06:43] LABS: Anion Gap 8.0 (3-11); Blood Urea Nitrogen 19.0 mg/dl (6-23); Calcium 8.6 mg/dl (8.6-10.3); Carbon Dioxide 25.0 mmol/L (21-32); Chloride 111.0 mmol/L (98-107); Creatinine Clr Calc Pharmacy 53.1 ml/min; Glucose 115.0 mg/dl (70-99(Fasting)); Potassium 3.5 mmol/L (3.5-5.1); Sodium 144.0 mmol/L (136-145)
--- NOTE | 2025-02-21 07:12 | History & Physical Bridge Note ---
Date of Service February 21, 2025 History & Physical Bridge Note I have examined the patient, reviewed the History & Physical and in the interval since the performance of the History & Physical I have noted the following changes of clinical significance: no changes noted
--- NOTE | 2025-02-21 08:24 | Electrocardiogram Report ---
Test Reason : Blood Pressure : */* mmHG Vent. Rate : 103 BPM Atrial Rate : 108 BPM P-R Int : * ms QRS Dur : 88 ms QT Int : 358 ms P-R-T Axes : 18 -17 -10 degrees QTcB Int : 468 ms Sinus tachycardia with 2nd degree A-V block (Mobitz I) Minimal voltage criteria for LVH, may be normal variant ( R in aVL ) Abnormal ECG When compared with ECG of 17-Feb-2025 09:31, Sinus rhythm is now with 2nd degree A-V block (Mobitz I) Minimal criteria for Anterior infarct are no longer Present Confirmed by Samantha Herron (Brandon) on 02/21/2025 8:24:02 AM Referred By: REFERRED SELF Confirmed By: Samantha Herron
--- NOTE | 2025-02-21 11:29 | Hospitalist Progress Note ---
Date of Service February 21, 2025 Assessment & Plan (1) Sepsis: (2) Infected wound: (3) Acute UTI (urinary tract infection): (4) Weakness: (5) Diabetes: (6) DUNCAN (acute kidney injury): (7) Hypomagnesemia: Plan This is a 69 year old female with past medical history of Asthma, recurrent UTI's, MS who presented to the ED on 02/17 for ~ 3 days of weakness & fatigue. #Sacral wound - osteomyelitis Stage IV sacral decubitus POA CTAP w/ IV contrast: sacral decubitus ulcer w/ osteomyelitis of coccyx & sacrococcygeal junction, new/progressed from 07/25/2021. No abscess; pannus contains large hernia containing sm/lg bowel; probable cellulitis of lower pannus Leukocytosis resolved.Procal negative x 2. Blood cultures 02/17 --> + for E facecalis, Corynebacterium, & pseduoglutamicibacter - sensitivities reviewed Blood cultures 02/19 --> + for bacillus cereus, no sensitivities to follow but per review vancomycin does typically cover Repeat blood cultures 02/21. --> if + again would consider an ID consult. Wound culture showing bacteroids fragilis --> no sensitivities to follow but Flagyl does typically cover. Continue IV Cefepime (through 02/22) & Vancomycin, IV Flagyl added 02/19. Wound nurse consulted: recommending the imaging + surgical consult General surgery consulted --> s/p sacral wound debridement with Dr. Hodgson 02/21. will require wound vac low air loss mattress; waffle cushion; q2h re-positioning. Scheduled Tylenol; Morphine q3h prn for pain. #Sepsis POA/UTI Urinalysis + ; UC --> 3 types of organisms present. - discussed w/ micro 02/20 - culture likely contaminated. Continue IV Cefepime through 02/22 to complete 5 day course of antibiotics for UTI. s/p ramirez catheter placement - void trial prior to dc & she does not have a chronic ramirez #Hypomagnesemia acute on chronic. Baseline ~1.5-1.6 Low at 1.5 s/p IV repletion Added Mag Oxide daily. AM mag #DUNCAN - resolved Elevated at 1.39 on arrival. Now stable at 1.09 Appears baseline may be around 1-1.15 s/p 1L IVF, continue gentle fluid rehydration on admission. #Asthma Recent hospital stay for asthma exacerbation from 01/23 - 01/26. Currently not having symptoms Continue home inhalers. #hypothyroidism TSH WNL Continue Synthroid 50mcg daily #HTN - BP normotensive, hold benazepril + Bumex in setting of acute infection. Resume when able. #Class III obesity BMI 46.7 #Type 2 DM Recent A1c 6.7% Home regimen: metformin BID SSI correction while inpatient, adjust as necessary. DVT prophylaxis: heparin Code: full Admission and Anticipated Discharge Date Admission Date: February 17, 2025 Jose Mcnally seen and examined this morning. She reports her lower buttock pain is controlled & denies any additional complaints. Physical Exam Constitutional: no acute distress Respiratory: normal respiratory effort Cardiovascular: no LE edema Neurologic: PERRL, EOMI, accommodation nl, no face palsy, no dysarthria Psychiatric: A+Ox3, euthymic affect Results & Data Results & Data Vital Signs (Past 12 Hours) Vital Signs Temp Pulse Resp BP BP Pulse Ox O2 Del Method 02/21/25 08:06 36.5 C 94 H 20 127/77 93 Room Air 02/21/25 07:00 Room Air 02/21/25 04:00 36.5 C 102 H 18 130/76 93 Room Air 02/20/25 23:36 36.4 C L 90 18 129/72 94 Room Air PG Care Time/CCT Total # of Minutes Spent Total Time Spent with Patient: Total time spent is greater than 50% in coordination of care (as documented) at patient's floor/unit and/or counseling patient: Coding Level of Care Code 44971 SUB INP/OBS CARE 3/50MIN Diagnoses Sepsis A41.9 Infected wound T14.8XXA; L08.9 Acute UTI (urinary tract infection) N39.0 Weakness R53.1 Diabetes E11.9 DUNCAN (acute kidney injury) N17.9 Hypomagnesemia E83.42
[2025-02-21] MEDS ORDERED: LIDOCAINE 2% 2 ML VIAL/AMP(20MG/ML) INFIL ONE (13:17)
[2025-02-21] MEDS ORDERED: PROPOFOL IV EMULSION 10 MG/ML 20 ML VIAL IV ONE (13:17)
[2025-02-21] MEDS ORDERED: ROCURONIUM BROMIDE 10 MG/ML 5 ML VIAL IV ONE (13:17)
[2025-02-21] MEDS ORDERED: ONDANSETRON INJ 2 MG/ML 2 ML VIAL ONE (13:17)
[2025-02-21] MEDS ORDERED: DEXAMETHASONE SOD INJ 4 MG/ML VIAL ONE (13:19)
[2025-02-21] MEDS ORDERED: MIDAZOLAM HCL 1 MG/ML 2ML VIAL ONE (14:06)
[2025-02-21] MEDS ORDERED: SUGAMMADEX SODIUM 200 MG/2 ML VIAL IV ONE (14:08)
--- NOTE | 2025-02-21 14:17 | Operative Report ---
Post Operative Report Pre & Post Diagnosis Operation Date: 02/21/25 09:20 Necrotic sacral decubitus, osteomyelitis I identified the patient and participated in the time-out.: Yes Procedure Operation Date: 02/21/25 09:20 Debridement of sacral decubitus through skin, SQ, fascia, and bone, 3 x 5 cm Surgeon Vincent Hodgson MD Six Color Press Operator none Estimated Blood Loss 15 Findings Consistent with Post-Op Diagnosis Necrotic sacral decubitus ulcer Specimens Tissue for pathology Drains None Anesthesia Type General Complications none Disposition Accompanied Patient To Recovery: No Indications This is a 69-year-old morbidly obese female who is bedbound with a sacral decubitus ulcer which shows necrotic tissue. A CT scan was done which showed likely osteomyelitis we will plan on debriding this to healthy tissue and then having a wound VAC placed. Description of Procedure The patient was taken to the OR, placed in right lateral decubitus position and underwent excellent generL anesthesia. Their 3 cm wide and 5 cm long decubitus ulcer was sharply debrided down through skin, subcutaneous tissue, muscle, and down through fascia into bone to healthy bleeding tissue. Cautery was used to control bleeding. The wound was irrigated. No active bleeding was seen at the end of the case. The wound was packed with a gauze and covered with a dry dressing. The patient tolerated the procedure well and was sent to the post-op recovery for a period of observation. They will be sent to floor for the rest of their care, with nursing to off-load ulcer appropriately. I attest to the content of the Intraoperative Record and any orders documented therein. Any exceptions are noted below.
--- NOTE | 2025-02-21 14:18 | Anesthesiology Consultation ---
Date of Service February 21, 2025 Assessment & Plan Chart Review Chart Review: Acceptable Risk for Surgery Consults Requested none ASA ASA4 Proposed Anesthesia Anesthesia Type: General Risk / Benefits Reviewed With: PT / POA / Parent / Guardian, Accepts Plan and Informed Consent Obtained History Surgery Operation Date: 02/21/25 09:20 Proposed Procedures p Debridement of Sacral Wound - Vincent Hodgson MD Height/Weight Height: 5 ft Weight: 107 kg Allergies Allergy/AdvReac Type Severity Reaction Status Date / Time Fish Containing Products Allergy Intermediate ITCHY RASH Verified 01/23/25 19:57 shellfish derived Allergy Intermediate ITCHY RASH Verified 01/23/25 19:57 montelukast [From [facility]] Allergy Unknown CAN'T Verified 01/23/25 19:57 REMEMBER codeine AdvReac Mild NAUSEATED Verified 01/23/25 19:57 Medications Home Medications Medication Instructions Recorded Confirmed Last Taken benazepril 40 mg tablet 0 mg PO QAM 06/25/21 02/17/25 01/23/25 omeprazole 20 mg capsule,delayed 20 mg PO PM 06/25/21 02/17/25 02/16/25 release aspirin 81 mg tablet,delayed 81 mg PO QAM #30 tabs 08/16/21 02/17/25 02/16/25 release atorvastatin 40 mg tablet 40 mg PO HS 07/20/23 02/17/25 02/16/25 docusate sodium 100 mg capsule 100 mg PO PM PRN Constipation 07/26/23 02/17/25 02/16/25 turmeric 400 mg capsule 400 mg PO QAM 07/26/23 02/17/25 02/16/25 albuterol sulfate 2.5 mg/3 mL 2.5 mg continuous nebulization 09/25/23 02/17/25 Unknown (0.083 %) solution for nebulization DIRECTED PRN Shortness Of Breath Or Wheezing diclofenac potassium 50 mg tablet 50 mg PO TID PRN Pain 09/25/23 02/17/25 02/16/25 vitamin B complex 1 tab PO DAILY 09/25/23 02/17/25 02/16/25 Wheelchair (Powered) (Power #1 ea 11/05/23 01/21/25 Unknown Wheelchair) multivitamin with minerals-folic 1 tab PO DAILY 12/01/23 02/17/25 02/16/25 acid 80 mcg chewable tablet (Centrum Adult 50 Plus) nystatin 100,000 unit/gram topical 1 applic topical BID PRN fungal 12/01/23 02/17/25 Unknown powder (Klayesta) rash budesonide-formoterol HFA 160 2 puff inhalation BID #10.2 grams 12/28/23 02/17/25 02/16/25 mcg-4.5 mcg/actuation aerosol inhaler inhalational spacing device #1 ea 12/28/23 01/21/25 Unknown (Aerochamber MV spacer) albuterol sulfate 90 mcg/actuation 2 puff inhalation Q4H PRN 01/14/25 02/17/25 Unknown aerosol inhaler Shortness Of Breath Or Wheezing ipratropium bromide 21 mcg (0.03 2 spray intranasal BID 01/14/25 02/17/25 01/23/25 08:00 %) nasal spray bumetanide 0.5 mg tablet 0 mg PO AMPM 01/21/25 02/17/25 02/16/25 levothyroxine 50 mcg tablet 50 mcg PO DAILYBB #30 tabs 01/26/25 02/17/25 02/16/25 (Synthroid) umeclidinium 62.5 mcg/actuation 1 inh inhalation DAILY #30 ea 01/26/25 02/17/25 02/16/25 blister powder for inhalation (Incruse Ellipta) metformin 500 mg tablet 1,000 mg PO BID 02/17/25 02/17/25 02/16/25 Active Medications Generic Name Dose Route Start Last Admin Trade Name Freq PRN Reason Stop Dose Admin Acetaminophen 1,000 mg 02/18/25 15:40 02/21/25 08:32 Acetaminophen 500 Mg Tab PO 03/20/25 15:39 1,000 mg TID SRIDHAR Administration Aspirin 81 mg 02/18/25 09:00 02/21/25 08:32 Aspirin 81 Mg Ectab PO 03/20/25 08:59 81 mg QAM SRIDHAR Administration Atorvastatin Calcium 40 mg 02/17/25 21:00 02/20/25 20:55 Atorvastatin 40 Mg Tab PO 03/19/25 20:59 40 mg HS SRIDHAR Administration Docusate Sodium 100 mg 02/17/25 15:36 02/20/25 20:57 Docusate Sodium 100 Mg Cap PO 03/19/25 15:35 100 mg PM PRN Administration Constipation Fluticasone/Vilanterol 1 puffs 02/18/25 09:00 02/21/25 08:33 Fluticasone/Vilanterol 200/25mcg 14 Puffs/Inhaler INH 03/20/25 08:59 1 puffs DAILY SRIDHRA Administration Protocol Heparin Sodium (Porcine) 5,000 units 02/17/25 21:00 02/20/25 08:54 Heparin Sod 5,000 Unit/0.5 Ml Vial SQ 03/19/25 20:59 5,000 units Q12 SRIDHAR Administration Cefepime HCl 2,000 mg in 20 mls @ 5 mls/min 02/17/25 21:00 02/21/25 08:38 Maxipime 2000mg IV 02/22/25 20:59 5 mls/min Q12H SRIDHAR Administration Protocol Vancomycin HCl 1,250 mg/ 275 mls @ 200 mls/hr 02/20/25 06:00 02/21/25 07:47 Sodium Chloride IV 02/25/25 05:59 Infused Q24H SRIDHAR Infusion Metronidazole 500 mg in 100 mls @ 100 mls/hr 02/19/25 16:00 02/21/25 08:44 Flagyl IV 02/26/25 15:59 Infused Q8H SRIDHAR Infusion Protocol Insulin Aspart 0 units 02/17/25 16:30 02/21/25 12:36 Insulin Aspart Per Unit Charge SC 03/19/25 16:29 Not Given ACHS SRIDHAR Ipratropium [place] 2 sprays 02/17/25 21:00 02/21/25 08:33 Ipratropium [place] Nasal [place] 0.03% 30 Ml FREDERIC 03/19/25 20:59 2 sprays BID SRIDHAR Administration Levothyroxine Sodium 50 mcg 02/18/25 06:30 02/21/25 06:26 Levothyroxine Sodium 50 Mcg Tablet PO 03/20/25 06:29 50 mcg DAILYBB SRIDHAR Administration Magnesium Oxide 400 mg 02/19/25 09:00 02/21/25 08:32 Magnesium Oxide 400 Mg Tab PO 03/21/25 08:59 400 mg QAM SRIDHAR Administration Morphine Sulfate 2 mg 02/18/25 16:06 02/21/25 12:36 Morphine Sulfate 2 Mg/Ml Carp IV 03/04/25 16:14 2 mg Q3H PRN Administration pain 8,9,10 Nystatin 1 appln 02/17/25 15:36 02/18/25 06:15 Nystatin Powder 15gm Btl EXT 03/19/25 15:35 1 appln BID PRN Administration fungal rash Pantoprazole Sodium 40 mg 02/17/25 21:00 02/20/25 20:55 Pantoprazole 40 Mg Tab PO 03/19/25 20:59 40 mg PM SRIDHAR Administration Umeclidinium [place] 1 puffs 02/18/25 09:00 02/21/25 08:33 Umeclidinium [place] 62.5mcg/Blister 7 Puffs/Inhaler INH 03/20/25 08:59 1 puffs DAILY SRIDHAR Administration NPO Date Last Intake of Fluids: 02/20/25 Time Last Intake of Fluids: 19:00 Date Last Intake of Solids: 02/20/25 Time Last Intake of Solids: 19:00 Past Medical History Medical History Hypomagnesemia Hypothermia Hypomagnesemia Dyspnea Left-sided weakness DUNCAN (acute kidney injury) Brain TIA Acute respiratory failure with hypoxia Osteoarthritis of knees, bilateral Sinusitis, acute Morbid obesity with BMI of 50.0-59.9, adult Tachy-rowena syndrome GERD (gastroesophageal reflux disease) Hypothyroidism Pancreatitis Thrombocytopenia Peripheral edema Septic shock Hypomagnesemia Fungal dermatitis Asthma Hypertension Diabetes Influenza A Pneumonia Multiple sclerosis Exercise / Class Metabolic Activity IV < 2 Limit ADL/Bedbound Past Family History Family History Other Family history non-contributory Past Surgical History Surgical History H/O tubal ligation H/O sinus surgery History of arthroscopic knee surgery Hx of tonsillectomy H/O: hysterectomy No pertinent past surgical history Past Anesthesia History No Hx of Anesthesia Complications and No Family Hx of Anesthesia Complications History of PONV No Hx of PONV and No Hx of Motion Sickness Social History Smoking Status: Never smoker Do You Dip or Chew Tobacco: No Hx Alcohol Use: No Hx Substance Use: No substance use type: does not use Physical Exam Vital Signs Last Vital Signs Temp 36.8 C 02/21/25 13:18 Pulse 94 H 02/21/25 11:50 Resp 17 02/21/25 13:18 BP 144/82 H 02/21/25 13:18 Pulse Ox 93 02/21/25 11:50 O2 Del Method Room Air 02/21/25 13:18 Constitutional + morbidly obese ENMT Mouth: + poor dentition Thyromental Distance: > or= 3.5 Finger Breadths Mallampati Class: IV Neck + thick neck Respiratory normal respiratory effort Auscultation: lungs clear to auscultation bilaterally Cardiovascular Rate/Rhythm: regular rate Musculoskeletal Spine: + limited cervical ROM Psychiatric Orientation: alert and oriented x 3 Testing Laboratory Results 02/21/25 05:58 02/21/25 05:58 PT 11.1 Seconds (9.0-12.0) 02/17/25 10:16 INR 1.0 (0.9-1.1) 02/17/25 10:16 APTT 27 Seconds (21-31) 02/17/25 10:16 Urine Color Dark Yellow 02/17/25 10:46 Urine Appearance Cloudy (Clear) A 02/17/25 10:46 Urine pH 5.0 (4.5-7.5) 02/17/25 10:46 Ur Specific [place] 1.032 (1.000-1.030) H 02/17/25 10:46 Urine Protein 1+ (Negative) H 02/17/25 10:46 Urine Glucose (UA) Negative (Negative) 02/17/25 10:46 Urine Ketones 1+ (Negative) H 02/17/25 10:46 Urine Nitrite Positive (Negative) A 02/17/25 10:46 Ur Leukocyte Esterase 1+ (Negative) H 02/17/25 10:46 Urine WBC (Auto) 0-5 /hpf (0-5) 02/17/25 10:46 Urine RBC (Auto) 0-2 /hpf (0-2) 02/17/25 10:46 U Hyaline Cast (Auto) 11-20 /lpf (0-2) H 02/17/25 10:46 U Epithel Cells (Auto) >20 /hpf (0-2) H 02/17/25 10:46 Urine Bacteria (Auto) None Seen (None Seen) 02/17/25 10:46 02/19/25 15:30 Aerobic Blood Culture - Preliminary Blood Bacillus cereus Anaerobic Blood Culture - Preliminary No growth in Anaerobic bottle after 24 hours. 02/19/25 15:30 Aerobic Blood Culture - Preliminary Blood No growth in Aerobic bottle after 24 hours. Anaerobic Blood Culture - Preliminary No growth in Anaerobic bottle after 24 hours. 02/17/25 12:20 Gram Stain - Final Sacrum Aerobic and Anaerobic Culture - Preliminary Bacteroides fragilis 02/17/25 10:08 Aerobic Blood Culture - Preliminary Blood Enterococcus faecalis Corynebacterium aurimucos grp Pseudoglutamicibacter cumminsi Anaerobic Blood Culture - Final 02/17/25 10:16 Aerobic Blood Culture - Preliminary Blood No growth in Aerobic bottle after 48 hours. Anaerobic Blood Culture - Final 02/17/25 10:46 Urine Culture - Final Urine,Straight Cath Three types of organisms present, all moderate counts. Repeat collection recommended. No further identifications or sensitivities to follow. 02/21/25 12:18 POC Glucose 130 H Echocardiogram Date: 01/14/25 EF: 70% LV Function: normal RWMA: + none Valvular Disease: + no significant valvular disease
[2025-02-21] MEDS ORDERED: ATROPINE SULFATE 0.1 MG/ML 10ML SYR IV PRN (14:19)
[2025-02-21] MEDS ORDERED: HYDROmorphone INJ 1 MG/ML SYRINGE IV PRN (14:19)
[2025-02-21] MEDS ORDERED: ONDANSETRON INJ 2 MG/ML 2 ML VIAL IV PRN (14:19)
[2025-02-21] MEDS ORDERED: PHENYLEPHRINE 100MCG/ML 5ML SYR ONE ×2 (14:33→14:40)
[2025-02-21] MEDS ORDERED: ePHEDrine sulfate 50 MG/5 ML SYR ONE (14:46)
[2025-02-21] MEDS: HYDROmorphone INJ 2 MG/ML SYR/VIAL IV PRN (15:11)
--- NOTE | 2025-02-21 15:29 | Pharmacy Report ---
Pharmacy PK ABX Note - Date of Service February 21, 2025 - Assessment and Plan Assessment 02/21: Random level this morning was 12.2mcg/mL. This extrapolates to an AUC within the goal range. However, this is not yet at steady state so will continue dosing as is for now but will obtain another level when at steady state. * Final blood culture from 02/17 grew E. faecalis (S. to vanco) Corynebacterium aurimucos grp, and Pseudoglutamicibacter cumminsi. * Sacrum culture from 02/17 grew Bacteroids fragilis * 1 of 2 blood cultures from 02/19 grew Bacillus cereus (prelim) -s/p sacral wound debridement (done today) 02/19: Random level: 14.1 mcg/mL this morning, predicts low end of goal. Will adjust dose slightly today to target mid-range to ensure therapeutic level is achieved. 1/2 blood cultures with E. faecalis + gramp positive bacilli. Sacrum with pin- point growth. urine 3+ organisms. 02/18: 69 year old F receiving vancomycin/cefepime for concerns for UTI/sacral wound infection. PMHx significant for asthma, recurrent UTI's. Presenting with worsening weakness/fatigue. Cultures pending. Plan Vancomycin * Vanco level this morning was 12.2mcg/ml, but not yet at steady state. Extrapolates to an AUC in the target range but will obtain another level once at steady state. * Maintenance dose: continue 1250 mg IV every 24 hours * Regimen is predicted to achieve target AUC/DEVIN of 400-600 mg/L.hr, although low end * Will obtain random level 02/23. -Patient continues on cefepime 2gm iv q 12 hours and metronidazole 500mg iv q 8 hours. Pharmacy will continue to follow and will adjust dose/frequency as necessary. Thank you. Pharmacy has transitioned to AUC monitoring for vancomycin. AUC/DEVIN is the preferred PK/PD target and is associated with decreased risk of nephrotoxicity compared to traditional trough targets.
--- NOTE | 2025-02-21 15:50 | Anesthesiology Progress Note ---
Date of Service February 21, 2025 Anesthesia Post Procedure Vital Signs Vital Signs: Temp Pulse Pulse Pulse Resp BP BP 02/21/25 15:40 83 16 103/65 02/21/25 15:30 91 H 17 93/54 L 02/21/25 15:20 99 H 21 104/68 02/21/25 15:10 103 H 21 99/64 L 02/21/25 15:05 36.2 C L 95 H 24 122/74 02/21/25 13:18 36.8 C 17 144/82 H 02/21/25 11:50 36.5 C 94 H 17 148/89 H 02/21/25 08:06 36.5 C 94 H 20 127/77 02/21/25 07:00 02/21/25 04:00 36.5 C 102 H 18 130/76 02/20/25 23:36 36.4 C L 90 18 129/72 02/20/25 21:42 105 H 02/20/25 20:36 02/20/25 19:30 36.5 C 75 18 126/80 02/20/25 16:52 36.4 C L 90 16 106/72 Pulse Ox O2 Del Method O2 Flow Rate 02/21/25 15:40 94 Nasal Cannula 2 02/21/25 15:30 95 Oxymask 3 02/21/25 15:20 96 Oxymask 3 02/21/25 15:10 96 Oxymask 4 02/21/25 15:05 96 Oxymask 4 02/21/25 13:18 Room Air 02/21/25 11:50 93 Room Air 02/21/25 08:06 93 Room Air 02/21/25 07:00 Room Air 02/21/25 04:00 93 Room Air 02/20/25 23:36 94 Room Air 02/20/25 21:42 02/20/25 20:36 Room Air 02/20/25 19:30 92 Room Air 02/20/25 16:52 95 Room Air Pain Intensity Chest: Pain Intensity: 5 Sacrum: Pain Intensity: 10 Transfer of Care Handoff Completed per policy Notes Mental Status: alert / awake / arousable and participated in evaluation Patient Amnestic to Procedure: Yes Nausea / Vomiting: adequately controlled Pain: adequately controlled Airway Patency, RR, SpO2: stable & adequate BP & HR: stable & adequate Hydration State: stable & adequate Anesthetic Complications: no major complications apparent and Pt Satisfied with anesthetic care
[2025-02-22 08:29] LABS: Hematocrit (blood only) 32.0 % (37.0-47.0); Hemoglobin 10.1 g/dl (12.0-16.0); Mean Corpuscular Hemoglobin 29.8 pg (25.0-34.0); Mean Corpuscular Volume 94.4 fL (80.0-100.0); Platelet Count 241 K/uL (130-400); RDW Standard Deviation 61.3 fL (36.4-46.3); Red Blood Count 3.39 M/uL (4.20-5.40); White Blood Count 12.09 K/ul (4.8-10.8)
[2025-02-22 08:48] LABS: Anion Gap 5.0 (3-11); Blood Urea Nitrogen 17.0 mg/dl (6-23); Calcium 8.6 mg/dl (8.6-10.3); Carbon Dioxide 27.0 mmol/L (21-32); Chloride 111.0 mmol/L (98-107); Creatinine Clr Calc Pharmacy 66.2 ml/min; Glucose 96.0 mg/dl (70-99(Fasting)); Magnesium 1.6 mg/dl (1.7-2.4); Potassium 4.0 mmol/L (3.5-5.1); Sodium 143.0 mmol/L (136-145)
--- NOTE | 2025-02-22 10:58 | Infectious Disease Consult ---
Date of Consultation February 22, 2025 Assessment & Plan (1) Infected wound: (2) Osteomyelitis of coccyx: Plan Problems: #Polymicrobial bacteremia: contaminant vs from sacrococcygeal wound #Sacrococcygeal wound with osteomyelitis Micro: 02/21 BCx x2: pending 02/19 BCx x2: Bacillus cereus in 1/4 bottles 02/17 Sacral wound cx: Bacteroides fragilis 02/17 UCx: mixed rosa maria 02/17 BCx x2: E faecalis (S amp, vanc), Corynebacterium aurimucosum group, Pseudoglutamicibacter cumminsi in 1/4 bottles Abx: Cefepime 02/17 - present Vanc 02/17 - present Metronidazole 02/19 - present 69 yo F with asthma, recurrent UTIs, MS who presented on 02/17 with 3 days of weakness and fatigue, found to have sacrococcygeal wound infection with underlying osteomyelitis. Pt reports that she has slept for 3 days and has only woken up to go to the bathroom. Because she was immobile, she has not taken care of her wounds much. Denied fevers or chills, worsened shortness of breath or cough, urinary urgency or frequency, dysuria. Noted pain to her sacral wound area. On presentation, pt was afebrile, VSS. Labs showed WBC 11.84, Cr 1.39, lactate 2.8, procalcitonin 0.35. CXR with no acute findings. Wound, urine, and blood cultures obtained. Started on vanc, cefepime. Wound care was consulted, and noted that her sacral wound had deteriorated greatly since last seen on 01/26. Recommended imaging and surgical consult. CT A/P with IV contrast showed a sacral decubitus ulcer with osteomyelitis of the coccyx and sacrococcygeal junction, new/progressed from 07/25/21, no abscess, probable cellulitis of the lower pannus. Inflammatory changes involving duodenum and uncinate process pancreas may represent a nonspecific duodenitis vs pancreatitis, correlated with lipase. She was taken to the OR on 02/21 for I&D. Debridement was done down into bone. No OR cultures sent. Plan for wound vac placement. Admission blood cultures grew E faecalis, Corynebacterium aurimucosum group, and Pseudoglutamicibacter cumminsi in 1/4 bottles. Sacral wound culture grew Bacter oides fragilis. Repeat blood cultures from 02/19 growing Bacillus cereus in 1/4 bottles. Discussion: Pt with multiple bacteria growing from blood cultures, but only in 1 of 4 b ottles each time with several uncommon organisms--could represent contaminants? Although cannot rule out that they arose from sacral wound. Recommendations: -Because the video cart is not functioning currently, unable to see patient by video. Request to upload a picture of the sacral wound if wound vac has not been placed yet -If there is a low chance of the sacral wound healing over, would avoid a 6 week course of IV antibiotics for the sacrococcygeal osteomyelitis as the wound/bone would remain open to the environment and antibiotics would not provide cure Will continue to follow Consultation Information This patient recommendation is based on a telemedicine consult request which was completed asynchronously through chart review and information provided by the primary physician. The patient was not seen or examined today. The evaluation is consultative in nature and all patient care and treatment decisions can either be accepted or rejected by the patient's primary hospital-based treating physician using their own independent medical judgment for their patient. [employer] contact information: Please call [facility] . (Phone Number For Physician Use Only) An e-consult was performed because the video cart is not functioning. Time Spent Reviewing Chart: 31+ minutes History of Present Illness Reason for Consultation: bacteremia, sacral wound Attending Physician: Kiya Presley MD History of Present Illness 69 yo F with asthma, recurrent UTIs, MS who presented on 02/17 with 3 days of weakness and fatigue. Pt reports that she has slept for 3 days and has only woken up to go to the bathroom. Because she was immobile, she has not taken care of her wounds much. Denied fevers or chills, worsened shortness of breath or cough, urinary urgency or frequency, dysuria. Noted pain to her sacral wound area. On presentation, pt was afebrile, VSS. Labs showed WBC 11.84, Cr 1.39, lactate 2.8, procalcitonin 0.35. CXR with no acute findings. Wound, urine, and blood cultures obtained. Started on vanc, cefepime. Wound care was consulted, and noted that her sacral wound had deteriorated greatly since last seen on 01/26. Recommended imaging and surgical consult. CT A/P with IV contrast showed a sacral decubitus ulcer with osteomyelitis of the coccyx and sacrococcygeal junction, new/progressed from 07/25/21, no abscess, probable cellulitis of the lower pannus. Inflammatory changes involving duodenum and uncinate process pancreas may represent a nonspecific duodenitis vs pancreatitis, correlated with lipase. She was taken to the OR on 02/21 for I&D. Debridement was done down into bone. No OR cultures sent. Admission blood cultures grew E faecalis, Corynebacterium aurimucos group, and Pseudoglutamicibacter cumminsi in 1/4 bottles. Sacral wound culture grew Bacteroides fragilis. Repeat blood cultures from 02/19 growing Bacillus cereus in 1/4 bottles. Allergies Allergy/AdvReac Type Severity Reaction Status Date / Time Fish Containing Products Allergy Intermediate ITCHY RASH Verified 01/23/25 19:57 shellfish derived Allergy Intermediate ITCHY RASH Verified 01/23/25 19:57 [facility] Allergy Unknown CAN'T Verified 01/23/25 19:57 REMEMBER codeine AdvReac Mild NAUSEATED Verified 01/23/25 19:57 Home Medications Medication Instructions Recorded Confirmed Type benazepril 40 mg tablet 0 mg PO QAM 06/25/21 02/17/25 History omeprazole 20 mg capsule,delayed 20 mg PO PM 06/25/21 02/17/25 History release aspirin 81 mg tablet,delayed 81 mg PO QAM #30 tabs 08/16/21 02/17/25 Rx release atorvastatin 40 mg tablet 40 mg PO HS 07/20/23 02/17/25 History docusate sodium 100 mg capsule 100 mg PO PM PRN Constipation 07/26/23 02/17/25 History turmeric 400 mg capsule 400 mg PO QAM 07/26/23 02/17/25 History albuterol sulfate 2.5 mg/3 mL 2.5 mg continuous nebulization 09/25/23 02/17/25 History (0.083 %) solution for nebulization DIRECTED PRN Shortness Of Breath Or Wheezing diclofenac potassium 50 mg tablet 50 mg PO TID PRN Pain 09/25/23 02/17/25 History vitamin B complex 1 tab PO DAILY 09/25/23 02/17/25 History Wheelchair (Powered) (Power #1 ea 11/05/23 01/21/25 Rx Wheelchair) multivitamin with minerals-folic 1 tab PO DAILY 12/01/23 02/17/25 History acid 80 mcg chewable tablet (Centrum Adult 50 Plus) nystatin 100,000 unit/gram topical 1 applic topical BID PRN fungal 12/01/23 02/17/25 History powder (Klayesta) rash budesonide-formoterol HFA 160 2 puff inhalation BID #10.2 grams 12/28/23 02/17/25 Rx mcg-4.5 mcg/actuation aerosol inhaler inhalational spacing device #1 ea 12/28/23 01/21/25 Rx (Aerochamber MV spacer) albuterol sulfate 90 mcg/actuation 2 puff inhalation Q4H PRN 01/14/25 02/17/25 History aerosol inhaler Shortness Of Breath Or Wheezing ipratropium bromide 21 mcg (0.03 2 spray intranasal BID 01/14/25 02/17/25 History %) nasal spray bumetanide 0.5 mg tablet 0 mg PO AMPM 01/21/25 02/17/25 History levothyroxine 50 mcg tablet 50 mcg PO DAILYBB #30 tabs 01/26/25 02/17/25 Rx (Synthroid) umeclidinium 62.5 mcg/actuation 1 inh inhalation DAILY #30 ea 01/26/25 02/17/25 Rx blister powder for inhalation (Incruse Ellipta) metformin 500 mg tablet 1,000 mg PO BID 02/17/25 02/17/25 History Patient History Medical History Hypomagnesemia Hypothermia Hypomagnesemia Dyspnea Left-sided weakness DUNCAN (acute kidney injury) Brain TIA Acute respiratory failure with hypoxia Osteoarthritis of knees, bilateral Sinusitis, acute Morbid obesity with BMI of 50.0-59.9, adult Tachy-rowena syndrome GERD (gastroesophageal reflux disease) Hypothyroidism Pancreatitis Thrombocytopenia Peripheral edema Septic shock Hypomagnesemia Fungal dermatitis Asthma Hypertension Diabetes Influenza A Pneumonia Multiple sclerosis Surgical History H/O tubal ligation H/O sinus surgery History of arthroscopic knee surgery Hx of tonsillectomy H/O: hysterectomy No pertinent past surgical history Family History Other Family history non-contributory Social History Smoking Status: Never smoker Second Hand Exposure: Yes; Do You Dip or Chew Tobacco: No; Hx Alcohol Use: No Hx Substance Use: No Preferred Language: Frisian Communication Ability: Effective Dry Starch Supervisor Required: No Beliefs That Will Affect Care: None marital status: Current Living Situation: Family Current Living Situation Comment: Home with and granddaughter How many Children do You have: 2 Other Information That Helps Us Care for You: No Feels Safe at Home: Yes Diet: gluten free during the past year weight has: decreased > 10 lbs Assistive Devices: Bedside Commode, Walker and Wheelchair Results & Data Vital Signs (Past 12 Hours) Vital Signs Temp Pulse Resp BP BP Pulse Ox O2 Del Method 02/22/25 07:43 36.4 C L 92 H 20 118/73 95 Nasal Cannula 02/22/25 03:01 36.4 C L 99 H 18 114/72 95 Nasal Cannula O2 Flow Rate 02/22/25 07:43 02/22/25 03:01 1 Laboratory Results Short CBC 02/22/25 Range/Units 07:55 WBC 12.09 H (4.8-10.8) K/ul Hgb 10.1 L (12.0-16.0) g/dl Hct 32.0 L (37.0-47.0) % Plt Count 241 (130-400) K/uL BMP 02/22/25 07:55 Sodium 143 Potassium 4.0 Chloride 111 H Carbon Dioxide 27 BUN 17 Creatinine 0.88 Glucose 96 Calcium 8.6 Medications Administered Current Inpatient Medications Acetaminophen (Acetaminophen 500 Mg Tab) 1,000 mg PO TID [facility] Stop: 03/20/25 15:39 Last Admin: 02/22/25 08:57 Dose: 1,000 mg Albuterol (Albuterol Hfa 8 Gm Inhaler) 2 puffs INH Q4H PRN PRN Reason: Shortness Of Breath Or Wheezing Stop: 03/19/25 15:35 Aspirin (Aspirin 81 Mg Ectab) 81 mg PO QAM SRIDHAR Stop: 03/20/25 08:59 Last Admin: 02/22/25 08:57 Dose: 81 mg Atorvastatin Calcium (Atorvastatin 40 Mg Tab) 40 mg PO HS [facility] Stop: 03/19/25 20:59 Last Admin: 02/21/25 23:10 Dose: Not Given Dextrose (Dextrose 50% 50 Ml Syringe) 25 - 50 ml IV UD PRN; Protocol PRN Reason: Hypoglycemia Protocol Stop: 03/19/25 15:44 Diclofenac Sodium (Diclofenac Sodium 25 Mg Tabdr) 50 mg PO TID PRN PRN Reason: Pain Docusate Sodium (Docusate Sodium 100 Mg Cap) 100 mg PO PM PRN PRN Reason: Constipation Stop: 03/19/25 15:35 Last Admin: 02/20/25 20:57 Dose: 100 mg Fluticasone/Vilanterol (Fluticasone/Vilanterol 200/25mcg 14 Puffs/Inhaler) 1 puffs INH DAILY SRIDHAR; Protocol Stop: 03/20/25 08:59 Last Admin: 02/22/25 08:58 Dose: 1 puffs Glucagon (Glucagon For Inj 1 Mg Vial) 1 mg SQ UD PRN; Protocol PRN Reason: Hypoglycemia Protocol Stop: 03/19/25 15:44 Glucose (Glucose 40% Gel 15 Gm Tube) 15 - 30 gm PO UD PRN; Protocol PRN Reason: Hypoglycemia Protocol Stop: 03/19/25 15:44 Glucose (Glucose 10 Tab/Tube) 4 - 8 tab PO UD PRN; Protocol PRN Reason: Hypoglycemia Protocol Stop: 03/19/25 15:44 Heparin Sodium (Porcine) (Heparin Sod 5,000 Unit/0.5 Ml Vial) 5,000 units SQ Q12 SRIHDAR Stop: 03/19/25 20:59 Last Admin: 02/22/25 08:58 Dose: 5,000 units Cefepime HCl (Maxipime 2000mg) 2,000 mg in 20 mls @ 5 mls/min IV Q12H SRIDHAR; P rotocol Stop: 02/22/25 20:59 Last Admin: 02/22/25 08:58 Dose: 5 mls/min Vancomycin HCl 1,250 mg/ (Sodium Chloride) 275 mls @ 200 mls/hr IV Q24H SRIDHAR Stop: 02/25/25 05:59 Last Infusion: 02/22/25 09:19 Dose: Infused Metronidazole (Flagyl) 500 mg in 100 mls @ 100 mls/hr IV Q8H SRIDHAR; Protocol Stop: 02/26/25 15:59 Last Infusion: 02/22/25 11:13 Dose: Infused Magnesium Sulfate/Dextrose (Magnesium Sulfate / D5w) 1 gm in 100 mls @ 50 mls/hr IV Q2H [facility] Stop: 02/22/25 13:29 Insulin Aspart (Insulin Aspart Per Unit Charge) 0 units SC ACHS [facility] Stop: 03/19/25 16:29 Last Admin: 02/22/25 09:17 Dose: Not Given Ipratropium [place] (Ipratropium [place] Nasal [place] 0.03% 30 Ml) 2 sprays FREDERIC BID [facility] Stop: 03/19/25 20:59 Last Admin: 02/22/25 08:58 Dose: 2 sprays Levothyroxine Sodium (Levothyroxine Sodium 50 Mcg Tablet) 50 mcg PO DAILYBB [facility] Stop: 03/20/25 06:29 Last Admin: 02/22/25 06:15 Dose: 50 mcg Magnesium Oxide (Magnesium Oxide 400 Mg Tab) 400 mg PO QAM [facility] Stop: 03/21/25 08:59 Last Admin: 02/22/25 08:58 Dose: 400 mg Miscellaneous (Carbohydrates For Hypoglycemia ) 15 - 30 gm PO UD PRN PRN Reason: Hypoglycemia Treatment Stop: 03/19/25 15:44 Miscellaneous Information (Vancomycin Consult Active) 1 each N/A UD PRN PRN Reason: Consult Stop: 03/19/25 15:35 Morphine Sulfate (Morphine Sulfate 2 Mg/Ml Carp) 1 mg IV Q3H PRN PRN Reason: Pain 6,7 Stop: 03/04/25 12:24 Morphine Sulfate (Morphine Sulfate 2 Mg/Ml Carp) 2 mg IV Q3H PRN PRN Reason: pain 8,9,10 Stop: 03/04/25 16:14 Last Admin: 02/22/25 04:18 Dose: 2 mg Nystatin (Nystatin Powder 15gm Btl) 1 appln EXT BID PRN PRN Reason: fungal rash Stop: 03/19/25 15:35 Last Admin: 02/21/25 22:14 Dose: 1 appln Ondansetron HCl (Ondansetron Inj 2 Mg/Ml 2 Ml Vial) 4 mg IV Q6H PRN PRN Reason: Nausea Stop: 03/19/25 15:35 Pantoprazole Sodium (Pantoprazole 40 Mg Tab) 40 mg PO PM [facility] Stop: 03/19/25 20:59 Last Admin: 02/21/25 23:10 Dose: Not Given Polyethylene Glycol (Polyethylene (Miralax) 17 Gm Pack) 17 gm PO DAILY PRN PRN Reason: Constipation Stop: 03/19/25 15:35 Umeclidinium [place] (Umeclidinium [place] 62.5mcg/Blister 7 Puffs/Inhaler) 1 puffs INH DAILY SRIDHAR Stop: 03/20/25 08:59 Last Admin: 02/22/25 08:59 Dose: 1 puffs
--- NOTE | 2025-02-22 12:44 | Surgery Progress Note ---
Date of Service February 22, 2025 Assessment & Plan (1) Infected wound: Plan: wound looks good begin dry dressings wound nurse to palce vac F/U in wound clinic offload ulcer Admission and Anticipated Discharge Date Admission Date: February 17, 2025 Subjective pain controlled Review of Systems Constitutional: no fever and no chills Respiratory: no dyspnea Cardiovascular: no chest pain Gastrointestinal: no abdominal pain Musculoskeletal: + back pain Neurologic: no localized weakness Psychiatric: no behavioral changes Physical Exam Constitutional: WD/WN, vitals as above Respiratory: normal respiratory effort Cardiovascular: Rate/Rhythm: regular rate and regular rhythm Skin: no rashes, warm and dry dressing removed, good and healthy tissue in ulcer Results & Data Vital Signs (Past 12 Hours) Vital Signs Temp Pulse Pulse Resp BP BP Pulse Ox 02/22/25 11:53 36.4 C L 92 H 20 109/68 93 02/22/25 11:03 02/22/25 11:03 98 H 02/22/25 07:43 36.4 C L 92 H 20 118/73 95 02/22/25 03:01 36.4 C L 99 H 18 114/72 95 O2 Del Method O2 Flow Rate 02/22/25 11:53 Nasal Cannula 02/22/25 11:03 Nasal Cannula 1 02/22/25 11:03 02/22/25 07:43 Nasal Cannula 02/22/25 03:01 Nasal Cannula 1
[2025-02-22] MEDS: MAGNESIUM SULFATE / D5W 1 GM/100 ML BAG IV SCH (12:52)
[2025-02-22] MEDS ORDERED: MoRPHine SULFATE 2 MG/ML CARP IV PRN (16:17)
--- NOTE | 2025-02-22 16:21 | Hospitalist Progress Note ---
"Date of Service February 22, 2025 Assessment & Plan (1) Sepsis: (2) Infected wound: (3) Acute UTI (urinary tract infection): (4) Weakness: (5) Diabetes: (6) DUNCAN (acute kidney injury): (7) Hypomagnesemia: Plan This is a 69 year old female with past medical history of Asthma, recurrent UTI's, MS who presented to the ED on 02/17 for ~ 3 days of weakness & fatigue. CTAP w/ IV contrast: sacral decubitus ulcer w/ osteomyelitis of coccyx & sacrococcygeal junction, new/progressed from 07/25/2021. No abscess; pannus contains large hernia containing sm/lg bowel; probable cellulitis of lower pannus #Sacral wound - osteomyelitis | Stage IV sacral decubitus POA Blood cultures 02/17 --> + for E facecalis, Corynebacterium, & pseduoglutamicibacter Blood cultures 02/19 --> + for bacillus cereus Blood cultures 02/21 --> pending Wound culture showing bacteroids fragilis --> no sensitivities to follow but Flagyl does typically cover. ID consulted - if low chance of healing would not recommend 6 week course of IV antibiotics, pending photo. Completed course of cefepime. Continue Vancomycin and IV Flagyl added 02/19. General surgery consulted - s/p sacral wound debridement with Dr. Hodgson 02/21. will require wound vac low air loss mattress; waffle cushion; q2h re-positioning. Pain control: Scheduled Tylenol; Prn oxycodone, Morphine q3h prn - d/c 2mg dose today #Heart block EKG from 02/20 concerning for 2nd degree AV block - Mobitz 1. e d tech noted flipping in out of possible 1st degree block today. Repeat EKG 02/22 with NSR Patient asymptomatic and not on AV robin blocking meds Check Lyme for completeness - possible cefepime could have covered potential infection. remain on tele #Sepsis POA/UTI Urinalysis + ; UC --> 3 types of organisms present. - discussed w/ micro 02/20 - culture likely contaminated. Completed course of cefepime. Will maintain ramirez until wound vac placed with mixed incontinence #Hypomagnesemia acute on chronic. Baseline ~1.5-1.6. Continue Mag Oxide daily. Mag 1.6 today - IV mag given AM mag #DUNCAN - resolved Elevated at 1.39 on arrival. Now stable at 1.09. s/p 1L IVF, continue gentle fluid rehydration on admission. #Asthma - Recent hospital stay for asthma exacerbation from 01/23 - 01/26. Continue home inhalers. #hypothyroidism - TSH WNL. Continue Synthroid 50mcg daily #HTN - BP normotensive, hold benazepril + Bumex in setting of acute infection. Resume when able. #Class III obesity BMI 46.7 #Type 2 DM Recent A1c 6.7% Home regimen: metformin BID SSI correction while inpatient, adjust as necessary. DVT prophylaxis: heparin Dispo: continued inpatient stay, Case discussed with ID and supervisor wound Admission and Anticipated Discharge Date Admission Date: February 17, 2025 Supervising Physician Co-Signing Physician Notes PA Supervision Note: I did not personally see or examine the patient today, but I verified all ray points of KATHY Kaur's assessment and plan with the following exceptions/additions: None Subjective patient seen sitting up in the chair, just after working with therapy. Having increased pain from her activity. Denies fevers or chills Reports appetite is poor at baselinediscussed the need for good wound care and good protein intake for wound healing. States that her was helping a little bit with wound care but otherwise she is doing with therapy was coming to her house. has mixed continence of urine. Telemetrysinus rhythm in the 90s Review of Systems Review of Systems: All systems reviewed & are unremarkable except as noted in Subjective Physical Exam Physical Exam: General: NAD, VS as above Resp: normal respiratory effort, lungs clear to auscultation CV: RRR, no murmur, Abd: normal bowel sounds, non tender, firm Extremities: Moves all extremities, no edema Neuro: A&O x3, Skin: wound not visualized Results & Data Results & Data Vital Signs (Past 12 Hours) Vital Signs Temp Pulse Pulse Resp BP BP Pulse Ox 02/22/25 16:09 97.7 F 87 20 101/66 90 02/22/25 15:56 95 02/22/25 15:56 87 L 02/22/25 15:40 95 H 02/22/25 11:53 97.5 F L 92 H 20 109/68 93 02/22/25 11:03 02/22/25 11:03 98 H 02/22/25 11:00 98 H 02/22/25 07:43 97.5 F L 92 H 20 118/73 95 O2 Del Method O2 Flow Rate 02/22/25 16:09 Room Air 02/22/25 15:56 Nasal Cannula 1 02/22/25 15:56 Room Air 02/22/25 15:40 02/22/25 11:53 Nasal Cannula 02/22/25 11:03 Nasal Cannula 1 02/22/25 11:03 02/22/25 11:00 02/22/25 07:43 Nasal Cannula Laboratory Results CBC and chemistry reviewed PG Care Time/CCT Total # of Minutes Spent Total Time Spent with Patient: Total time spent is greater than 50% in coordination of care (as documented) at patient's floor/unit and/or counseling patient: Coding Level of Care Code 37763 SUB INP/OBS CARE 3/50MIN Diagnoses Sepsis A41.9 Infected wound T14.8XXA; L08.9 Acute UTI (urinary tract infection) N39.0 Weakness R53.1 Diabetes E11.9 DUNCAN (acute kidney injury) N17.9 Hypomagnesemia E83.42"
[2025-02-23 05:25] LABS: Alanine Aminotransferase 11.0 U/L (7-52); Albumin Globulin Ratio 1.0 (0.9-2); Alkaline Phosphatase 78.0 U/L (34-104); Anion Gap 1.0 (3-11); Bilirubin,Total 0.3 mg/dl (0.2-1.0); Blood Urea Nitrogen 17.0 mg/dl (6-23); Calcium 8.9 mg/dl (8.6-10.3); Carbon Dioxide 29.0 mmol/L (21-32); Chloride 111.0 mmol/L (98-107); Creatinine Clr Calc Pharmacy 62.7 ml/min; Globulin 2.6 gm/dl (2.5-4.0); Glucose 113.0 mg/dl (70-99(Fasting)); Magnesium 1.9 mg/dl (1.7-2.4); Potassium 4.0 mmol/L (3.5-5.1); Sodium 141.0 mmol/L (136-145); Total Protein 5.2 gm/dl (6.0-8.3)
[2025-02-23] MEDS: VANCOMYCIN LEVEL ONE (05:52)
--- NOTE | 2025-02-23 09:07 | Pharmacy Report ---
Pharmacy PK ABX Note - Date of Service February 23, 2025 - Assessment and Plan Assessment 02/23 * Vanc level this morning resulted at 12 mcg/mL. Level is at steady state and correlates with AUC/DEVIN = 421. Would prefer AUC/DEVIN closer to 500 given sacral decubitus ulcer with OM with possible bacteremia. Will increase vanco dose by 20%. * Duration to be determined. ID consulted. 02/21: Random level this morning was 12.2mcg/mL. This extrapolates to an AUC within the goal range. However, this is not yet at steady state so will continue dosing as is for now but will obtain another level when at steady state. * Final blood culture from 02/17 grew E. faecalis (S. to vanco) Corynebacterium aurimucos grp, and Pseudoglutamicibacter cumminsi. * Sacrum culture from 02/17 grew Bacteroids fragilis * 1 of 2 blood cultures from 02/19 grew Bacillus cereus (prelim) -s/p sacral wound debridement (done today) 02/19: Random level: 14.1 mcg/mL this morning, predicts low end of goal. Will adjust dose slightly today to target mid-range to ensure therapeutic level is achieved. 1/2 blood cultures with E. faecalis + gramp positive bacilli. Sacrum with pin- point growth. urine 3+ organisms. 02/18: 69 year old F receiving vancomycin/cefepime for concerns for UTI/sacral wound infection. PMHx significant for asthma, recurrent UTI's. Presenting with worsening weakness/fatigue. Cultures pending. Plan Vancomycin * Start 1500 mg IV every 24 hours - first dose 8/14 AM * Regimen is predicted to achieve target AUC/DEVIN of 400-600 mg/L.hr * Est. steady state AUC/DEVIN = 504 Continues on metronidazole 500mg IV q 8 hours. Pharmacy will continue to follow and will adjust dose/frequency as necessary. Thank you.
--- NOTE | 2025-02-23 13:00 | Electrocardiogram Report ---
Test Reason : Blood Pressure : */* mmHG Vent. Rate : 82 BPM Atrial Rate : 82 BPM P-R Int : 204 ms QRS Dur : 94 ms QT Int : 382 ms P-R-T Axes : -24 -26 -25 degrees QTcB Int : 446 ms Normal sinus rhythm Minimal voltage criteria for LVH, may be normal variant ( R in aVL ) Cannot rule out Anterior infarct , age undetermined Abnormal ECG When compared with ECG of 20-Feb-2025 14:05, Sinus rhythm is no longer with 2nd degree A-V block (Mobitz I) Confirmed by Vernon Sullivan ([id number]) on 02/23/2025 1:00:47 PM Referred By: REFERRED SELF Confirmed By: Vernon Sullivan
--- NOTE | 2025-02-23 14:46 | Infectious Disease Progress Nt ---
Date of Service February 23, 2025 Assessment & Plan (1) Infected wound: (2) Osteomyelitis of coccyx: Plan Problems: #Polymicrobial bacteremia: contaminant vs from sacrococcygeal wound #Sacrococcygeal wound with osteomyelitis Micro: 02/21 BCx x2: NGTD 02/19 BCx x2: Bacillus cereus in 1/4 bottles 02/17 Sacral wound cx: Bacteroides fragilis 02/17 UCx: mixed rosa maria 02/17 BCx x2: E faecalis (S amp, vanc), Corynebacterium aurimucosum group, Pseudoglutamicibacter cumminsi in 1/4 bottles Abx: Cefepime 02/17 - present Vanc 02/17 - present Metronidazole 02/19 - present 69 yo F with asthma, recurrent UTIs, MS who presented on 02/17 with 3 days of weakness and fatigue, found to have sacrococcygeal wound infection with underlying osteomyelitis. Pt reports that she has slept for 3 days and has only woken up to go to the bathroom. Because she was immobile, she has not taken care of her wounds much. Denied fevers or chills, worsened shortness of breath or cough, urinary urgency or frequency, dysuria. Noted pain to her sacral wound a oliver. On presentation, pt was afebrile, VSS. Labs showed WBC 11.84, Cr 1.39, lactate 2.8, procalcitonin 0.35. CXR with no acute findings. Wound, urine, and blood cultures obtained. Started on vanc, cefepime. Wound care was consulted, and noted that her sacral wound had deteriorated greatly since last seen on 01/26. Recommended imaging and surgical consult. CT A/P with IV contrast showed a sacral decubitus ulcer with osteomyelitis of the coccyx and sacrococcygeal junction, new/progressed from 07/25/21, no abscess, probable cellulitis of the lower pannus. Inflammatory changes involving duodenum and uncinate process pancreas may represent a nonspecific duodenitis vs pancreatitis, correlated with lipase. She was taken to the OR on 02/21 for I&D. Debridement was done down into bone. No OR cultures sent. Plan for wound vac placement. Admission blood cultures grew E faecalis, Corynebacterium aurimucosum group, and Pseudoglutamicibacter cumminsi in 1/4 bottles. Sacral wound culture grew Bacteroides fragilis. Repeat blood cultures from 02/19 growing Bacillus cereus in 1/4 bottles. Discussion: Pt with multiple bacteria growing from blood cultures, but only in 1 of 4 bot tles each time with several uncommon organisms--could represent contaminants? Although cannot rule out that they arose from sacral wound. Reviewed picture of sacrococcygeal wound--bone visible in wound. Recommendations: -Wound with visible bone and is unlikely to heal over within 6 weeks. Because the bone would remain open to the environment, a prolonged course of IV ant ibiotics will not be effective and will lead to colonization with resistant organisms. In addition, we do not have a bone culture to help direct antibiotic therapy, and placing the pt on empiric broad antibiotics may lead to more risks than benefits. Therefore, will hold off on a 6 week course of IV antibiotics for the sacrococcygeal osteomyelitis at this time, and recommend a shorter course of PO antibiotics to treat for soft tissue infection, in conjunction with ongoing close wound care follow-up and offloading. If in the future, wound coverage is feasible, would suggest a bone biopsy for culture to direct 6 weeks of antibiotics. -On discharge, can transition to doxycycline 100 mg PO BID and amox/clav 875 mg PO BID through 03/06 to complete a 2 week course of antibiotics from date of debr idement Will sign off. Admission and Anticipated Discharge Date Admission Date: February 17, 2025 Subjective This patient recommendation is based on a telemedicine consult request which was completed asynchronously through chart review and information provided by the primary physician. The patient was not seen or examined today. The evaluation is consultative in nature and all patient care and treatment decisions can either be accepted or rejected by the patient's primary hospital-based treating physician using their own independent medical judgment for their patient. An e-consult was performed as the video cart is not functioning at this time. Time Spent Reviewing Chart: 21 - 30 minutes No acute events Repeat blood cultures from 02/21 T Results & Data Vital Signs (Past 12 Hours) Vital Signs Temp Pulse Pulse Resp BP Pulse Ox O2 Del Method 02/23/25 14:23 85 02/23/25 10:44 Nasal Cannula 02/23/25 10:44 85 02/23/25 07:50 36.5 C 87 20 117/70 97 Room Air 02/23/25 04:24 36.8 C 88 20 112/67 95 Room Air O2 Flow Rate 02/23/25 14:23 02/23/25 10:44 1 02/23/25 10:44 02/23/25 07:50 02/23/25 04:24 Medications Administered Current Inpatient Medications Acetaminophen (Acetaminophen 500 Mg Tab) 1,000 mg PO TID SRIDHAR Stop: 03/20/25 15:39 Last Admin: 02/23/25 13:46 Dose: 1,000 mg Albuterol (Albuterol Hfa 8 Gm Inhaler) 2 puffs INH Q4H PRN PRN Reason: Shortness Of Breath Or Wheezing Stop: 03/19/25 15:35 Aspirin (Aspirin 81 Mg Ectab) 81 mg PO QAM SRIDHAR Stop: 03/20/25 08:59 Last Admin: 02/23/25 08:52 Dose: 81 mg Atorvastatin Calcium (Atorvastatin 40 Mg Tab) 40 mg PO HS SRIDHAR Stop: 03/19/25 20:59 Last Admin: 02/22/25 21:24 Dose: 40 mg Dextrose (Dextrose 50% 50 Ml Syringe) 25 - 50 ml IV UD PRN; Protocol PRN Reason: Hypoglycemia Protocol Stop: 03/19/25 15:44 Diclofenac Sodium (Diclofenac Sodium 25 Mg Tabdr) 50 mg PO TID PRN PRN Reason: Pain Docusate Sodium (Docusate Sodium 100 Mg Cap) 100 mg PO PM PRN PRN Reason: Constipation Stop: 03/19/25 15:35 Last Admin: 02/20/25 20:57 Dose: 100 mg Fluticasone/Vilanterol (Fluticasone/Vilanterol 200/25mcg 14 Puffs/Inhaler) 1 puffs INH DAILY SRIDHAR; Protocol Stop: 03/20/25 08:59 Last Admin: 02/23/25 08:52 Dose: 1 puffs Glucagon (Glucagon For Inj 1 Mg Vial) 1 mg SQ UD PRN; Protocol PRN Reason: Hypoglycemia Protocol Stop: 03/19/25 15:44 Glucose (Glucose 40% Gel 15 Gm Tube) 15 - 30 gm PO UD PRN; Protocol PRN Reason: Hypoglycemia Protocol Stop: 03/19/25 15:44 Glucose (Glucose 10 Tab/Tube) 4 - 8 tab PO UD PRN; Protocol PRN Reason: Hypoglycemia Protocol Stop: 03/19/25 15:44 Heparin Sodium (Porcine) (Heparin Sod 5,000 Unit/0.5 Ml Vial) 5,000 units SQ Q12 [facility] Stop: 03/19/25 20:59 Last Admin: 02/23/25 08:52 Dose: 5,000 units Metronidazole (Flagyl) 500 mg in 100 mls @ 100 mls/hr IV Q8H [facility]; Protocol Stop: 02/26/25 15:59 Last Infusion: 02/23/25 10:42 Dose: Infused Vancomycin HCl 1,500 mg/ (Sodium Chloride) 530 mls @ 200 mls/hr IV Q24H [facility] Stop: 02/25/25 05:59 Insulin Aspart (Insulin Aspart Per Unit Charge) 0 units SC ACHS [facility] Stop: 03/19/25 16:29 Last Admin: 02/23/25 12:28 Dose: Not Given Ipratropium [place] (Ipratropium [place] Nasal [place] 0.03% 30 Ml) 2 sprays FREDERIC BID [facility] Stop: 03/19/25 20:59 Last Admin: 02/23/25 08:52 Dose: 2 sprays Levothyroxine Sodium (Levothyroxine Sodium 50 Mcg Tablet) 50 mcg PO DAILYBB [facility] Stop: 03/20/25 06:29 Last Admin: 02/23/25 05:52 Dose: 50 mcg Magnesium Oxide (Magnesium Oxide 400 Mg Tab) 400 mg PO QAM [facility] Stop: 03/21/25 08:59 Last Admin: 02/23/25 08:53 Dose: 400 mg Miscellaneous (Carbohydrates For Hypoglycemia ) 15 - 30 gm PO UD PRN PRN Reason: Hypoglycemia Treatment Stop: 03/19/25 15:44 Miscellaneous Information (Vancomycin Consult Active) 1 each N/A UD PRN PRN Reason: Consult Stop: 03/19/25 15:35 Morphine Sulfate (Morphine Sulfate 2 Mg/Ml [place]) 1 mg IV Q3H PRN PRN Reason: Breakthrough Pain Stop: 03/04/25 12:24 Nystatin (Nystatin Powder 15gm Btl) 1 appln EXT BID PRN PRN Reason: fungal rash Stop: 03/19/25 15:35 Last Admin: 02/21/25 22:14 Dose: 1 appln Ondansetron HCl (Ondansetron Inj 2 Mg/Ml 2 Ml Vial) 4 mg IV Q6H PRN PRN Reason: Nausea Stop: 03/19/25 15:35 Oxycodone HCl (Oxycodone Hcl Ir 5 Mg Tab (Immediate Release)) 5 mg PO Q6H PRN PRN Reason: Pain Stop: 03/08/25 16:15 Pantoprazole Sodium (Pantoprazole 40 Mg Tab) 40 mg PO PM SRIDHAR Stop: 03/19/25 20:59 Last Admin: 02/22/25 21:24 Dose: 40 mg Polyethylene Glycol (Polyethylene (Miralax) 17 Gm Pack) 17 gm PO DAILY PRN PRN Reason: Constipation Stop: 03/19/25 15:35 Umeclidinium [place] (Umeclidinium [place] 62.5mcg/Blister 7 Puffs/Inhaler) 1 puffs INH DAILY SRIDHAR Stop: 03/20/25 08:59 Last Admin: 02/23/25 08:53 Dose: 1 puffs
--- NOTE | 2025-02-23 16:39 | Hospitalist Progress Note ---
"Date of Service February 23, 2025 Assessment & Plan (1) Sepsis: (2) Infected wound: (3) Acute UTI (urinary tract infection): (4) Weakness: (5) Diabetes: (6) DUNCAN (acute kidney injury): (7) Hypomagnesemia: Plan This is a 69 year old female with past medical history of Asthma, recurrent UTI's, MS who presented to the ED on 02/17 for ~ 3 days of weakness & fatigue. CTAP w/ IV contrast: sacral decubitus ulcer w/ osteomyelitis of coccyx & sacrococcygeal junction, new/progressed from 07/25/2021. No abscess; pannus contains large hernia containing sm/lg bowel; probable cellulitis of lower pannus #Sacral wound - osteomyelitis | Stage IV sacral decubitus POA Blood cultures 02/17 --> + for E facecalis, Corynebacterium, & pseduoglutamicibacter Blood cultures 02/19 --> + for bacillus cereus Blood cultures 02/21 --> no growth at 24 hours Wound culture showing bacteroids fragilis --> no sensitivities to follow but Flagyl does typically cover. ID consulted - no bone path for osteo, so no prolonged course of antibiotics. Recommend 2-week course (through 03/06), can transition to doxycycline and Augmentin. Completed course of cefepime. Continue Vancomycin and IV Flagyl added 02/19. General surgery consulted - s/p sacral wound debridement with Dr. Hodgson 02/21. will require wound vac low air loss mattress; waffle cushion; q2h re-positioning. RD consulted - boost BID Pain control: Scheduled Tylenol; Prn oxycodone, #Heart block EKG from 02/20 concerning for 2nd degree AV block - Mobitz 1. networking technician noted flipping in out of possible 1st degree block today. Repeat EKG 02/22 with NSR Patient asymptomatic and not on AV robin blocking meds. lyme negative. Patient had recent admission with concerns for Mobitz 2 and outpatient monitor ordered. Patient asymptomic and no further events on tele - stable for downgrade. #Sepsis POA/UTI Urinalysis + ; UC --> 3 types of organisms present. - discussed w/ micro 02/20 - culture likely contaminated. Completed course of cefepime. remove ramirez 02/23 #Hypomagnesemia acute on chronic. Baseline ~1.5-1.6. Mag 1.9 today - Continue Mag Oxide daily. #DUNCAN - resolved Elevated at 1.39 on arrival. Now stable at 1.09. s/p 1L IVF, continue gentle fluid rehydration on admission. #Asthma - Recent hospital stay for asthma exacerbation from 01/23 - 01/26. Continue home inhalers. #hypothyroidism - TSH WNL. Continue Synthroid 50mcg daily #HTN - BP normotensive, hold benazepril + Bumex in setting of acute infection. R esume when able. #Class III obesity BMI 46.7 #Type 2 DM Recent A1c 6.7% Home regimen: metformin BID SSI correction while inpatient, adjust as necessary. DVT prophylaxis: heparin Dispo: continued inpatient stay, stable for downgrade to medical. awaiting safe dsicharge dispo Case discussed with ID Admission and Anticipated Discharge Date Admission Date: February 17, 2025 Supervising Physician Co-Signing Physician Notes PA Supervision Note: I did not personally see or examine the patient today, but I verified all ray points of KATHY Kaur's assessment and plan with the following exceptions/additions: None Subjective sitting up in bed, reports the pain in her wound is tolerable Reports her appetite is poor but we again discussed the importance of protein intake for wound healing. Review of Systems Review of Systems: All systems reviewed & are unremarkable except as noted in Subjective Physical Exam Physical Exam: General: NAD, VS as above Resp: normal respiratory effort, lungs clear to auscultation CV: RRR, no murmur, Abd: normal bowel sounds, non tender, firm Extremities: Moves all extremities, no edema Neuro: A&O x3, Skin: wound not visualized Results & Data Results & Data Vital Signs (Past 12 Hours) Vital Signs Temp Pulse Pulse Resp BP Pulse Ox O2 Del Method 02/23/25 15:55 97.7 F 66 18 103/59 L 92 Nasal Cannula 02/23/25 14:23 85 02/23/25 10:44 Nasal Cannula 02/23/25 10:44 85 02/23/25 07:50 97.7 F 87 20 117/70 97 Room Air O2 Flow Rate 02/23/25 15:55 02/23/25 14:23 02/23/25 10:44 1 02/23/25 10:44 02/23/25 07:50 Laboratory Results BMP reviewed Lyme screen reviewed PG Care Time/CCT Total # of Minutes Spent Total Time Spent with Patient: Total time spent is greater than 50% in coordination of care (as documented) at patient's floor/unit and/or counseling patient: Coding Level of Care Code 98021 SUB INP/OBS CARE 2/35MIN Diagnoses Sepsis A41.9 Infected wound T14.8XXA; L08.9 Acute UTI (urinary tract infection) N39.0 Weakness R53.1 Diabetes E11.9 DUNCAN (acute kidney injury) N17.9 Hypomagnesemia E83.42"
[2025-02-24] MEDS: CEFEPIME 2000MG 2,000 MG/20 ML SYR IV SCH (00:57)
[2025-02-24] MEDS: VANCOMYCIN HCL 1,500 MG in SODIUM CHLORIDE 0.9% 500 ML IV SCH (05:33)
[2025-02-24] MEDS: metroNIDAZOLE 500 MG TAB PO SCH (08:41)
--- NOTE | 2025-02-24 10:54 | Hospitalist Progress Note ---
"Date of Service February 24, 2025 Assessment & Plan (1) Sepsis: (2) Infected wound: (3) Acute UTI (urinary tract infection): (4) Weakness: (5) Diabetes: (6) DUNCAN (acute kidney injury): (7) Hypomagnesemia: Plan This is a 69 year old female with past medical history of Asthma, recurrent UTI's, MS who presented to the ED on 02/17 for ~ 3 days of weakness & fatigue. CTAP w/ IV contrast: sacral decubitus ulcer w/ osteomyelitis of coccyx & sacrococcygeal junction, new/progressed from 07/25/2021. No abscess; pannus contains large hernia containing sm/lg bowel; probable cellulitis of lower pannus #Sacral wound - osteomyelitis | Stage IV sacral decubitus POA Blood cultures 02/17 --> + for E facecalis, Corynebacterium, & pseduoglutamicibacter Blood cultures 02/19 --> + for bacillus cereus Blood cultures 02/21 --> no growth at 24 hours Wound culture showing bacteroids fragilis --> no sensitivities to follow but Flagyl does typically cover. ID consulted - no bone path for osteo, so no prolonged course of antibiotics. Recommend 2-week course (through 03/06), can transition to doxycycline and Augmentin at discharge Continue Vancomycin and IV Flagyl BID and cefepime. General surgery consulted - s/p sacral wound debridement with Dr. Hodgson 02/21. wound vac placed 02/23 low air loss mattress; waffle cushion; q2h re-positioning. RD consulted - boost BID Pain control: Scheduled Tylenol; Prn oxycodone, #Heart block EKG from 02/20 concerning for 2nd degree AV block - Mobitz 1. technical documentation specialist noted flipping in out of possible 1st degree block today. Repeat EKG 02/22 with NSR Patient asymptomatic and not on AV robin blocking meds. lyme negative. Patient had recent admission with concerns for Mobitz 2 and outpatient monitor ordered. Patient asymptomic and no further events on tele - stable for downgrade. #Sepsis POA/UTI Urinalysis + ; UC --> 3 types of organisms present. - discussed w/ micro 02/20 - culture likely contaminated. Completed course of cefepime. #Hypomagnesemia acute on chronic. Baseline ~1.5-1.6. Mag 1.9 today - Continue Mag Oxide daily. #DUNCAN - resolved Elevated at 1.39 on arrival. Now stable at 1.09. s/p 1L IVF, continue gentle fluid rehydration on admission. #Asthma - Recent hospital stay for asthma exacerbation from 01/23 - 01/26. Continue home inhalers. #hypothyroidism - TSH WNL. Continue Synthroid 50mcg daily #HTN - BP normotensive, hold benazepril + Bumex in setting of acute infection. Resume when able - possibly tomorrow #Class III obesity BMI 46.7 #Type 2 DM Recent A1c 6.7% Home regimen: metformin BID SSI correction while inpatient, adjust as necessary. DVT prophylaxis: heparin Dispo: continued inpatient stay, awaiting safe dsicharge dispo Case discussed with ID Admission and Anticipated Discharge Date Admission Date: February 17, 2025 Supervising Physician Co-Signing Physician Notes PA Supervision Note: I did not personally see or examine the patient today, but I verified all ray points of KATHY Kaur's assessment and plan with the following exceptions/additions: None Subjective patient lying in bed, reports more tired today did not sleep well pain is managable encouraged OOB and protien intake. Discussed PO abx at discharge Review of Systems Review of Systems: All systems reviewed & are unremarkable except as noted in Subjective Physical Exam Physical Exam: General: NAD, VS as above Resp: normal respiratory effort, lungs clear to auscultation CV: RRR, no murmur, Abd: normal bowel sounds, non tender, firm Extremities: Moves all extremities, no edema Neuro: A&O x3, Skin: wound not visualized, wound vac in place Results & Data Results & Data Vital Signs (Past 12 Hours) Vital Signs Temp Pulse Resp BP Pulse Ox O2 Del Method 02/24/25 07:37 97.7 F 78 16 126/73 92 Room Air 02/23/25 22:57 97.3 F L 84 18 118/74 95 Room Air Laboratory Results cbc and chemsitry reviwed PG Care Time/CCT Total # of Minutes Spent Total Time Spent with Patient: Total time spent is greater than 50% in coordination of care (as documented) at patient's floor/unit and/or counseling patient: Coding Level of Care Code 81499 SUB INP/OBS CARE 2/35MIN Diagnoses Sepsis A41.9 Infected wound T14.8XXA; L08.9 Acute UTI (urinary tract infection) N39.0 Weakness R53.1 Diabetes E11.9 DUNCAN (acute kidney injury) N17.9 Hypomagnesemia E83.42"
[2025-02-24 11:49] LABS: Hematocrit (blood only) 31.9 % (37.0-47.0); Hemoglobin 10.1 g/dl (12.0-16.0); Immature Granulocytes # (auto) 0.38 K/uL (0.01-0.20); Immature Granulocytes % (auto) 3.6 %; Mean Corpuscular Hemoglobin 30.0 pg (25.0-34.0); Mean Corpuscular Volume 94.7 fL (80.0-100.0); Platelet Count 276 K/uL (130-400); RDW Standard Deviation 62.6 fL (36.4-46.3); Red Blood Count 3.37 M/uL (4.20-5.40); White Blood Count 10.69 K/ul (4.8-10.8)
[2025-02-24 12:03] LABS: Anion Gap 4.0 (3-11); Blood Urea Nitrogen 16.0 mg/dl (6-23); Calcium 8.9 mg/dl (8.6-10.3); Carbon Dioxide 30.0 mmol/L (21-32); Chloride 109.0 mmol/L (98-107); Creatinine Clr Calc Pharmacy 65.1 ml/min; Glucose 172.0 mg/dl (70-99(Fasting)); Potassium 3.9 mmol/L (3.5-5.1); Sodium 143.0 mmol/L (136-145)
[2025-02-25] MEDS: VANCOMYCIN LEVEL ONE (05:49)
[2025-02-25 06:16] LABS: Creatinine Clr Calc Pharmacy 57.4 ml/min
--- NOTE | 2025-02-25 09:08 | Hospitalist Progress Note ---
"Date of Service February 25, 2025 Assessment & Plan (1) Sepsis: (2) Infected wound: (3) Acute UTI (urinary tract infection): (4) Weakness: (5) Diabetes: (6) DUNCAN (acute kidney injury): (7) Hypomagnesemia: Plan This is a 69 year old female with past medical history of Asthma, recurrent UTI's, MS who presented to the ED on 02/17 for ~ 3 days of weakness & fatigue. CTAP w/ IV contrast: sacral decubitus ulcer w/ osteomyelitis of coccyx & sacrococcygeal junction, new/progressed from 07/25/2021. No abscess; pannus contains large hernia containing sm/lg bowel; probable cellulitis of lower pannus #Sacral wound - osteomyelitis | Stage IV sacral decubitus POA Blood cultures 02/17 --> + for E facecalis, Corynebacterium, & pseduoglutamicibacter Blood cultures 02/19 --> + for bacillus cereus Blood cultures 02/21 --> no growth at 48 hours Wound culture bacteroids fragilis --> no sensitivities to follow but Flagyl does typically cover. ID consulted - no bone path for osteo, so no prolonged course of antibiotics. Recommend 2-week course (through 03/06), cefepime/vanc/flagyl --> transition to doxycycline and Augmentin 02/25 General surgery consulted - s/p sacral wound debridement with Dr. Hodgson 02/21. wound vac placed 02/23 low air loss mattress; waffle cushion; q2h re-positioning. RD consulted - boost BID Pain control: Scheduled Tylenol; Prn oxycodone, OOB for meals, IS added #Heart block EKG from 02/20 concerning for 2nd degree AV block - Mobitz 1. sleep technologist noted flipping in out of possible 1st degree block today. Repeat EKG 02/22 with NSR Patient asymptomatic and not on AV robin blocking meds. lyme negative. Patient had recent admission with concerns for Mobitz 2 and outpatient monitor ordered. Patient asymptotic and no further events on tele - stable for downgrade. #Sepsis POA/UTI Urinalysis + ; UC --> 3 types of organisms present. - discussed w/ micro 02/20 - culture likely contaminated. Completed course of cefepime. #Hypomagnesemia acute on chronic. Baseline ~1.5-1.6. Mag 1.9 today - Continue Mag Oxide daily. #DUNCAN - resolved Elevated at 1.39 on arrival. Now stable at 1.09. s/p 1L IVF #Asthma - Recent hospital stay for asthma exacerbation from 01/23 - 01/26. Continue home inhalers. #hypothyroidism - TSH WNL. Continue Synthroid 50mcg daily #HTN - BP normotensive, 02/25 resume benazepril + Bumex bumex prescibed BID, but restarted at daily #Class III obesity BMI 46.7 #Type 2 DM Recent A1c 6.7% Home regimen: metformin BID SSI correction while inpatient, adjust as necessary. DVT prophylaxis: heparin Dispo: continued inpatient stay, awaiting safe discharge dispo Admission and Anticipated Discharge Date Admission Date: February 17, 2025 Subjective Patient seen lying in bed reports pain is controlled more coughing this morning, does not appear to be taking full breaths, incentive spirometer provided encouraged OOB to chair and repositioning Review of Systems Review of Systems: All systems reviewed & are unremarkable except as noted in Subjective Physical Exam Physical Exam: General: NAD, VS as above Resp: normal respiratory effort, lungs diminished in bases CV: RRR, no murmur, Abd: normal bowel sounds, non tender, firm Extremities: Moves all extremities, no edema Neuro: A&O x3, Skin: wound not visualized, wound vac in place Results & Data Results & Data Vital Signs (Past 12 Hours) Vital Signs Temp Pulse Pulse Resp BP BP Pulse Ox 02/25/25 07:34 97.5 F L 70 65 20 113/74 97 02/24/25 22:32 97.3 F L 73 16 127/82 97 O2 Del Method 02/25/25 07:34 Room Air 02/24/25 22:32 Room Air PG Care Time/CCT Total # of Minutes Spent Total Time Spent with Patient: Total time spent is greater than 50% in coordination of care (as documented) at patient's floor/unit and/or counseling patient: Coding Level of Care Code 48514 SUB INP/OBS CARE 08/07MIN Diagnoses Sepsis A41.9 Infected wound T14.8XXA; L08.9 Acute UTI (urinary tract infection) N39.0 Weakness R53.1 Diabetes E11.9 DUNCAN (acute kidney injury) N17.9 Hypomagnesemia E83.42"
[2025-02-25] MEDS: BUMETANIDE 1 MG TAB PO SCH (09:44)
[2025-02-25] MEDS: AMOXICILLIN/CLAVULANATE 875 MG TAB PO SCH (17:20)
[2025-02-25] MEDS: DOXYCYCLINE HYCLATE 100 MG CAP PO SCH (20:50)
[2025-02-26 07:33] LABS: Creatinine Clr Calc Pharmacy 67.4 ml/min
[2025-02-26] MEDS: ENALAPRIL MALEATE 10 MG TAB PO SCH (08:12)
--- NOTE | 2025-02-26 11:38 | Hospitalist Progress Note ---
"Date of Service February 26, 2025 Assessment & Plan (1) Sepsis: (2) Infected wound: (3) Acute UTI (urinary tract infection): (4) Weakness: (5) Diabetes: (6) DUNCAN (acute kidney injury): (7) Hypomagnesemia: Plan This is a 69 year old female with past medical history of Asthma, recurrent UTI's, MS who presented to the ED on 02/17 for ~ 3 days of weakness & fatigue. CTAP w/ IV contrast: sacral decubitus ulcer w/ osteomyelitis of coccyx & sacrococcygeal junction, new/progressed from 07/25/2021. No abscess; pannus contains large hernia containing sm/lg bowel; probable cellulitis of lower pannus #Sacral wound - osteomyelitis | Stage IV sacral decubitus POA Blood cultures 02/17 --> + for E facecalis, Corynebacterium, & pseduoglutamicibacter Blood cultures 02/19 --> + for bacillus cereus Blood cultures 02/21 --> no growth at 48 hours Wound culture bacteroids fragilis --> no sensitivities to follow but Flagyl does typically cover. ID consulted - no bone path for osteo, so no prolonged course of antibiotics. Recommend 2-week course (through 03/06), cefepime/vanc/flagyl --> transition to doxycycline and Augmentin 02/25 General surgery consulted - s/p sacral wound debridement with Dr. Hodgson 02/21. wound vac placed 02/23 low air loss mattress; waffle cushion; q2h re-positioning. RD consulted - boost BID Pain control: Scheduled Tylenol; Prn oxycodone, IV morphine PRN before wound vac changes OOB for meals Dangelo catheter placed 02/26 due to urinary incontinence in setting of sacral wound #Heart block EKG from 02/20 concerning for 2nd degree AV block - Mobitz 1. extracorporeal technician noted flipping in out of possible 1st degree block today. Repeat EKG 02/22 with NSR Patient asymptomatic and not on AV robin blocking meds. lyme negative. Patient had recent admission with concerns for Mobitz 2 and outpatient monitor ordered. Patient asymptotic and no further events on tele - downgraded off telemetry #Sepsis POA/UTI - Urinalysis + ; UC --> 3 types of organisms present. - discussed w/ micro 02/20 - culture likely contaminated. Completed course of cefepime. #Hypomagnesemia - acute on chronic. Baseline ~1.5-1.6, repleted and improved to 1.9 - Continue Mag Oxide daily. #DUNCAN - Now resolved. Elevated at 1.39 on arrival, s/p 1L IVF and returned to baseline #Asthma - Recent hospital stay for asthma exacerbation from 01/23 - 01/26. Continue home inhalers. #hypothyroidism - TSH WNL. Continue Synthroid 50mcg daily #HTN - BP normotensive, 02/25 resume benazepril + Bumex Bumex prescribed BID, but restarted at daily #Class III obesity - BMI 46.7. Encourage weight loss in outpatient setting #Type 2 DM Recent A1c 6.7% Home regimen: metformin BID SSI correction while inpatient, adjust as necessary. DVT prophylaxis: heparin Dispo: continued inpatient stay, awaiting safe discharge dispo Daughter and brother updated at bedside Added on morphine IV PRN before wound vac changes Admission and Anticipated Discharge Date Admission Date: February 17, 2025 Subjective Patient seen and evaluated at bedside with her brother and daughter present. She is emotional at this time as she just had her Dangelo catheter placed. She denies any complaints, concerns, or needs right now. She just asked for alone time with her family; her wishes were respected. Encouraged her to ring for her RN if she would like me to return later today. Physical Exam Physical Exam: General: No acute distress, nondiaphoretic, well-developed, well-nourished. Class III obesity. Most of the physical exam was deferred per patient's request. Skin: Wound vac in place, no issues. Cardiac: Well-perfused. Rate in 80s. Pulm: Normal respiratory effort. 97% on room air. : Dangelo catheter draining clear pale yellow urine. Neuro: A&O x3. No focal neurological deficits. Results & Data Results & Data Vital Signs (Past 12 Hours) Vital Signs Temp Pulse Resp BP Pulse Ox O2 Del Method 02/26/25 07:30 Room Air 02/26/25 07:29 97.3 F L 81 16 117/65 97 Room Air Laboratory Results Reviewed chemistries PG Care Time/CCT Total # of Minutes Spent Total Time Spent with Patient: Total time spent is greater than 50% in coordination of care (as documented) at patient's floor/unit and/or counseling patient: Coding Level of Care Code 58894 SUB INP/OBS CARE 50MIN Diagnoses Sepsis A41.9 Infected wound T14.8XXA; L08.9 Acute UTI (urinary tract infection) N39.0 Weakness R53.1 Diabetes E11.9 DUNCAN (acute kidney injury) N17.9 Hypomagnesemia E83.42"
[2025-02-26] MEDS: MAGNESIUM OXIDE 400 MG TAB PO SCH (12:42)
[2025-02-27 06:53] LABS: Creatinine Clr Calc Pharmacy 69.8 ml/min
[2025-02-27] MEDS: BACLOFEN 10 MG TAB PO PRN (13:07)
--- NOTE | 2025-02-27 13:49 | Hospitalist Progress Note ---
"Date of Service February 27, 2025 Assessment & Plan (1) Sepsis: (2) Infected wound: (3) Acute UTI (urinary tract infection): (4) Weakness: (5) Diabetes: (6) DUNCAN (acute kidney injury): (7) Hypomagnesemia: Plan This is a 69 year old female with past medical history of Asthma, recurrent UTI's, MS who presented to the ED on 02/17 for ~ 3 days of weakness & fatigue. CTAP w/ IV contrast: sacral decubitus ulcer w/ osteomyelitis of coccyx & sacrococcygeal junction, new/progressed from 07/25/2021. No abscess; pannus contains large hernia containing sm/lg bowel; probable cellulitis of lower pannus #Sacral wound - osteomyelitis | Stage IV sacral decubitus POA Blood cultures 02/17 --> + for E facecalis, Corynebacterium, & pseduoglutamicibacter Blood cultures 02/19 --> + for bacillus cereus Blood cultures 02/21 --> no growth at 48 hours Wound culture bacteroids fragilis --> no sensitivities to follow but Flagyl does typically cover. ID consulted - no bone path for osteo, so no prolonged course of antibiotics. Recommend 2-week course (through 03/06), cefepime/vanc/flagyl --> transition to doxycycline and Augmentin 02/25 General surgery consulted - s/p sacral wound debridement with Dr. Hodgson 02/21. wound vac placed 02/23 low air loss mattress; waffle cushion; q2h re-positioning. RD consulted - boost BID Pain control: Scheduled Tylenol; Prn oxycodone, IV morphine PRN before wound vac changes. Baclofen 10 mg BID PRN muscle spasms OOB for meals Dangelo catheter placed 02/26 due to urinary incontinence in setting of sacral wound #Heart block EKG from 02/20 concerning for 2nd degree AV block - Mobitz 1. forklift technician noted flipping in out of possible 1st degree block today. Repeat EKG 02/22 with NSR Patient asymptomatic and not on AV robin blocking meds. lyme negative. Patient had recent admission with concerns for Mobitz 2 and outpatient monitor ordered. Patient asymptotic and no further events on tele - downgraded off telemetry #Sepsis POA/UTI - Urinalysis + ; UC --> 3 types of organisms present. - discussed w/ micro 02/20 - culture likely contaminated. Completed course of cefepime. #Hypomagnesemia - acute on chronic. Baseline ~1.5-1.6, repleted and improved to 1.9 - Continue Mag Oxide daily. #DUNCAN - Now resolved. Elevated at 1.39 on arrival, s/p 1L IVF and returned to baseline #Asthma - Recent hospital stay for asthma exacerbation from 01/23 - 01/26. Continue home inhalers. #hypothyroidism - TSH WNL. Continue Synthroid 50mcg daily #HTN - BP normotensive, 02/25 resume benazepril + Bumex Bumex prescribed BID, but restarted at daily #Class III obesity - BMI 46.7. Encourage weight loss in outpatient setting #Type 2 DM - Recent A1c 6.7%. Home regimen: metformin BID SSI correction while inpatient, adjust as necessary. DVT prophylaxis: heparin Dispo: continued inpatient stay, awaiting safe discharge dispo Family updated at bedside Started baclofen Admission and Anticipated Discharge Date Admission Date: February 17, 2025 Subjective Patient seen and evaluated at bedside with family present. She reports feeling well overall. She did have a muscle spasm in her right thigh earlier that resolved on its own. Otherwise she denies any complaints or concerns at this time. Her wound VAC is functioning appropriately. Her pain is well-controlled. Family reports she is eating about 50% of her meals which is pretty consistent with how she is at home. She is sleeping fairly overnight. Continuing to wait for placement. Physical Exam Physical Exam: General: No acute distress, nondiaphoretic, well-developed, well-nourished. Class III obesity. Skin: Wound vac in place, no issues. Cardiac: Regular rate and rhythm without murmurs gallops or rubs. Pulm: Diminished in bases but otherwise clear to auscultation bilaterally without wheezes, rales or rhonchi. Normal respiratory effort. 93% on room air. : Dangelo catheter draining clear pale yellow urine. Neuro: A&O x3. No focal neurological deficits. Results & Data Results & Data Vital Signs (Past 12 Hours) Vital Signs Temp Pulse Resp BP Pulse Ox O2 Del Method 02/27/25 07:05 97.3 F L 83 18 115/78 93 Room Air Laboratory Results Reviewed chemistries PG Care Time/CCT Total # of Minutes Spent Total Time Spent with Patient: Total time spent is greater than 50% in coordination of care (as documented) at patient's floor/unit and/or counseling patient: Coding Level of Care Code 62123 SUB INP/OBS CARE 3/50MIN Diagnoses Sepsis A41.9 Infected wound T14.8XXA; L08.9 Acute UTI (urinary tract infection) N39.0 Weakness R53.1 Diabetes E11.9 DUNCAN (acute kidney injury) N17.9 Hypomagnesemia E83.42"
[2025-02-28] MEDS: MoRPHine SULFATE 2 MG/ML CARP IV PRN (15:22)
--- NOTE | 2025-02-28 17:15 | Hospitalist Progress Note ---
Date of Service February 28, 2025 Assessment & Plan (1) Sepsis: Plan: Present on admission. Now resolved (2) Infected wound: Plan: She has a deep sacral decubitus ulcer with osteomyelitis involving the coccyx. Infectious disease consultation and recommendations appreciated. She is currently on oral doxycycline and Augmentin through March 06. Unfortunately, the wound VAC had to be removed today, February 28, due to fecal contamination. (3) Acute UTI (urinary tract infection): Plan: Multiple organisms isolated. Currently on oral doxycycline and Augmentin. (4) Weakness: Plan: Supportive care. Continue OT and PT (5) Diabetes: Plan: ADA diet. Sliding scale coverage. (6) DUNCAN (acute kidney injury): Plan: Improved. Monitor intake and output. Serial labs (7) Hypomagnesemia: Plan: Corrected with replacement therapy. Serial labs (8) Morbid obesity: Plan: BMI greater than 40. Significant weight loss recommended Plan Eventual discharge to [facility] with wound VAC on oral antibiotics Admission and Anticipated Discharge Date Admission Date: February 17, 2025 Subjective Alert and oriented. Stable overall. Unfortunately, the wound VAC was contaminated with feces and needed to be removed today by the wound care nurse. She remains on oral oral doxycycline and Augmentin through March 06. Her sacral decubitus ulcer was debrided on February 21. Review of Systems 2 Review of Systems: Constitutionalno fever or chills ENTno blurred vision, no double vision, no epistaxis, no sore throat Respiratoryno cough, no wheezing, no shortness of breath Cardiacno palpitations, no chest pain, no syncope Emery nausea, vomiting, diarrhea, melena, hematochezia GUno urinary retention, no urinary incontinence, no dysuria, no hematuria Musculoskeletalno joint pain, no muscle tenderness Skinno bruising, no rashes, no pruritus Neurono isolated weakness, no paresthesia, no weakness Psychno depression, no anxiety Physical Exam 2 Physical Exam: General-alert and oriented x3, no fever, no chills. Morbidly obese HEENT-head atraumatic and normocephalic, pupils equal and reactive to light, extraocular muscles intact Neck-no lymphadenopathy or thyromegaly, trachea midline Chest-clear to auscultation. No rales, wheezing or rhonchi Cardiac-regular rate and rhythm, normal S1 and S2 Abdomen-normal bowel sounds, no hepatosplenomegaly Skindeep decubitus ulcer with osteomyelitis involving the coccyx. Extremities-no cyanosis, clubbing, or edema Neuro-cranial nerves II through XII intact, motor and sensory function within normal limits, strength symmetrical, no focal deficits Psych-normal affect, normal mood Results & Data Results & Data Vital Signs (Past 12 Hours) Vital Signs Temp Pulse Pulse Resp BP Pulse Ox O2 Del Method 02/28/25 15:04 36.4 C L 98 H 18 101/68 94 Room Air 02/28/25 08:00 Room Air 02/28/25 07:59 36.5 C 75 98 H 20 109/75 95 Room Air Laboratory Results 02/24/25 11:25 02/27/25 06:04 PG Care Time/CCT Total # of Minutes Spent Total Time Spent with Patient: Total time spent is greater than 50% in coordination of care (as documented) at patient's floor/unit and/or counseling patient: Coding Level of Care Code 35693 SUB INP/OBS CARE 3/50MIN Diagnoses Sepsis A41.9 Infected wound T14.8XXA; L08.9 Acute UTI (urinary tract infection) N39.0 Weakness R53.1 Diabetes E11.9 DUNCAN (acute kidney injury) N17.9 Hypomagnesemia E83.42 Morbid obesity E66.01
--- NOTE | 2025-03-01 14:09 | Hospitalist Progress Note ---
Date of Service March 01, 2025 Assessment & Plan (1) Sepsis: Plan: Present on admission. Now resolved (2) Infected wound: Plan: She has a deep sacral decubitus ulcer with osteomyelitis involving the coccyx. Infectious disease consultation and recommendations appreciated. She is currently on oral doxycycline and Augmentin through March 06. Unfortunately, the wound VAC had to be temporarily removed on February 28 due to fecal contamination. It will be replaced to soon as possible (3) Acute UTI (urinary tract infection): Plan: Multiple organisms isolated. Currently on oral doxycycline and Augmentin. (4) Weakness: Plan: Supportive care. Continue OT and PT (5) Diabetes: Plan: ADA diet. Sliding scale coverage. (6) DUNCAN (acute kidney injury): Plan: Improved. Monitor intake and output. Serial labs (7) Hypomagnesemia: Plan: Corrected with replacement therapy. Serial labs (8) Morbid obesity: Plan: BMI greater than 40. Significant weight loss recommended Plan [facility] with [facility] VAC on oral antibiotics. Hopefully within the next day or 2 Admission and Anticipated Discharge Date Admission Date: February 17, 2025 Subjective Alert and oriented. No distress. She remains on oral doxycycline and Augmentin. [id number] glucose 143 this morning. Hopeful discharge to [facility] with a wound VAC within the next day or 2 Review of Systems 2 Review of Systems: Constitutionalno fever or chills ENTno blurred vision, no double vision, no epistaxis, no sore throat Respiratoryno cough, no wheezing, no shortness of breath Cardiacno palpitations, no chest pain, no syncope Emery nausea, vomiting, diarrhea, melena, hematochezia GUno urinary retention, no urinary incontinence, no dysuria, no hematuria Musculoskeletalno joint pain, no muscle tenderness Skindeep sacral decubitus ulcer noted Neurono isolated weakness, no paresthesia, no weakness Psychno depression, no anxiety Physical Exam 2 Physical Exam: General-alert and oriented x3, no fever, no chills. Morbidly obese HEENT-head atraumatic and normocephalic, pupils equal and reactive to light, extraocular muscles intact Neck-no lymphadenopathy or thyromegaly, trachea midline Chest-clear to auscultation. No rales, wheezing or rhonchi Cardiac-regular rate and rhythm, normal S1 and S2 Abdomen-normal bowel sounds, no hepatosplenomegaly Skindeep decubitus ulcer with osteomyelitis involving the coccyx. Extremities-no cyanosis, clubbing, or edema Neuro-cranial nerves II through XII intact, motor and sensory function within normal limits, strength symmetrical, no focal deficits Psych-normal affect, normal mood Results & Data Results & Data Vital Signs (Past 12 Hours) Vital Signs Temp Pulse Resp BP Pulse Ox O2 Del Method 03/01/25 07:37 Room Air 03/01/25 07:30 36.4 C L 87 16 100/69 90 Room Air Laboratory Results 02/24/25 11:25 02/27/25 06:04 PG Care Time/CCT Total # of Minutes Spent Total Time Spent with Patient: Total time spent is greater than 50% in coordination of care (as documented) at patient's floor/unit and/or counseling patient: Coding Level of Care Code 26565 SUB INP/OBS CARE 2/35MIN Diagnoses Sepsis A41.9 Infected wound T14.8XXA; L08.9 Acute UTI (urinary tract infection) N39.0 Weakness R53.1 Diabetes E11.9 DUNCAN (acute kidney injury) N17.9 Hypomagnesemia E83.42 Morbid obesity E66.01
--- NOTE | 2025-03-02 12:07 | Hospitalist Progress Note ---
Date of Service March 02, 2025 Assessment & Plan (1) Sepsis: Plan: Present on admission. Now resolved (2) Infected wound: Plan: She has a deep sacral decubitus ulcer with osteomyelitis involving the coccyx. Infectious disease consultation and recommendations appreciated. She is currently on oral doxycycline and Augmentin through March 06. Unfortunately, the wound VAC had to be temporarily removed on February 28 due to fecal contamination. (3) Acute UTI (urinary tract infection): Plan: Multiple organisms isolated. Currently on oral doxycycline and Augmentin. (4) Weakness: Plan: Supportive care. Continue OT and PT (5) Diabetes: Plan: ADA diet. Sliding scale coverage. (6) DUNCAN (acute kidney injury): Plan: Present on admission now resolved. Monitor intake and output. Serial labs (7) Hypomagnesemia: Plan: Corrected with replacement therapy. Serial labs (8) Morbid obesity: Plan: BMI greater than 40. Significant weight loss recommended Plan Eventual discharge to [facility] with wound VAC on oral antibiotics. Hopefully within the next day or 2 when bed becomes available Admission and Anticipated Discharge Date Admission Date: February 17, 2025 Subjective Alert and oriented. Vital signs are stable. [id number] glucose 160 today, March 02. Eventual discharge to [facility] when bed is available Review of Systems 2 Review of Systems: Constitutionalno fever or chills ENTno blurred vision, no double vision, no epistaxis, no sore throat Respiratoryno cough, no wheezing, no shortness of breath Cardiacno palpitations, no chest pain, no syncope Emery nausea, vomiting, diarrhea, melena, hematochezia GUno urinary retention, no urinary incontinence, no dysuria, no hematuria Musculoskeletalno joint pain, no muscle tenderness Skindeep sacral decubitus ulcer noted Neurono isolated weakness, no paresthesia, no weakness Psychno depression, no anxiety Physical Exam 2 Physical Exam: General-alert and oriented x3, no fever, no chills. Morbidly obese HEENT-head atraumatic and normocephalic, pupils equal and reactive to light, extraocular muscles intact Neck-no lymphadenopathy or thyromegaly, trachea midline Chest-clear to auscultation. No rales, wheezing or rhonchi Cardiac-regular rate and rhythm, normal S1 and S2 Abdomen-normal bowel sounds, no hepatosplenomegaly Skindeep decubitus ulcer with osteomyelitis involving the coccyx. Extremities-no cyanosis, clubbing, or edema Neuro-cranial nerves II through XII intact, motor and sensory function within normal limits, strength symmetrical, no focal deficits Psych-normal affect, normal mood Results & Data Results & Data Vital Signs (Past 12 Hours) Vital Signs Temp Pulse Resp BP Pulse Ox O2 Del Method 03/02/25 07:50 36.4 C L 88 18 115/78 93 Room Air 03/02/25 07:30 Room Air 03/02/25 06:59 36.4 C L 91 H 18 104/59 L 91 Room Air Laboratory Results 02/24/25 11:25 02/27/25 06:04 PG Care Time/CCT Total # of Minutes Spent Total Time Spent with Patient: Total time spent is greater than 50% in coordination of care (as documented) at patient's floor/unit and/or counseling patient: Coding Level of Care Code 29000 SUB INP/OBS CARE 2/35MIN Diagnoses Sepsis A41.9 Infected wound T14.8XXA; L08.9 Acute UTI (urinary tract infection) N39.0 Weakness R53.1 Diabetes E11.9 DUNCAN (acute kidney injury) N17.9 Hypomagnesemia E83.42 Morbid obesity E66.01
--- NOTE | 2025-03-03 13:09 | Hospitalist Progress Note ---
Date of Service March 03, 2025 Assessment & Plan (1) Sepsis: Plan: Present on admission. Now resolved (2) Infected wound: Plan: The patient has a chronic sacral decubitus ulcer with osteomyelitis involving the coccyx. Infectious disease consultation and recommendations appreciated. She is currently on oral doxycycline and Augmentin through March 06. Unfortunately, the wound VAC had to be temporarily removed on February 28 due to fecal contamination but has since been replaced. (3) Acute UTI (urinary tract infection): Plan: Multiple organisms isolated. Currently on oral doxycycline and Augmentin. (4) Weakness: Plan: Supportive care. Continue OT and PT (5) Diabetes: Plan: ADA diet. Sliding scale coverage. (6) DUNCAN (acute kidney injury): Plan: Present on admission now resolved. Monitor intake and output. Serial labs (7) Hypomagnesemia: Plan: Corrected with replacement therapy. Serial labs (8) Morbid obesity: Plan: BMI greater than 40. Significant weight loss recommended Plan Eventual discharge to [facility] with wound VAC on oral antibiotics when arrangements are finalized. She is medically stable for discharge. Admission and Anticipated Discharge Date Admission Date: February 17, 2025 Subjective Currently sleeping. Vital signs are stable. No new problems. Awaiting placement at [facility] when arrangements are finalized. [id number] glucose 143 this morning, March 03 Review of Systems 2 Review of Systems: Constitutionalno fever or chills ENTno blurred vision, no double vision, no epistaxis, no sore throat Respiratoryno cough, no wheezing, no shortness of breath Cardiacno palpitations, no chest pain, no syncope Emery nausea, vomiting, diarrhea, melena, hematochezia GUno urinary retention, no urinary incontinence, no dysuria, no hematuria Musculoskeletalno joint pain, no muscle tenderness Skindeep sacral decubitus ulcer noted Neurono isolated weakness, no paresthesia, no weakness Psychno depression, no anxiety Physical Exam 2 Physical Exam: General-currently asleep. No fever HEENT-head atraumatic and normocephalic, pupils equal and reactive to light, extraocular muscles intact Neck-no lymphadenopathy or thyromegaly, trachea midline Chest-clear to auscultation. No rales, wheezing or rhonchi Cardiac-regular rate and rhythm, normal S1 and S2 Abdomen-normal bowel sounds, no hepatosplenomegaly Skindeep decubitus ulcer with osteomyelitis involving the coccyx. Extremities-no cyanosis, clubbing, or edema Neuro-currently asleep. Cannot assess Psych-currently asleep. Cannot assess Results & Data Results & Data Vital Signs (Past 12 Hours) Vital Signs Temp Pulse Resp BP Pulse Ox O2 Del Method 03/03/25 07:24 Room Air 03/03/25 07:05 36.5 C 71 18 99/66 L 94 Room Air Laboratory Results 02/24/25 11:25 02/27/25 06:04 PG Care Time/CCT Total # of Minutes Spent Total Time Spent with Patient: Total time spent is greater than 50% in coordination of care (as documented) at patient's floor/unit and/or counseling patient: Coding Level of Care Code 34058 SUB INP/OBS CARE 2/35MIN Diagnoses Sepsis A41.9 Infected wound T14.8XXA; L08.9 Acute UTI (urinary tract infection) N39.0 Weakness R53.1 Diabetes E11.9 DUNCAN (acute kidney injury) N17.9 Hypomagnesemia E83.42 Morbid obesity E66.01
[2025-03-03] MEDS: SODIUM CHLORIDE 0.9% 1,000 ML IV SCH (16:50)
[2025-03-03 23:08] VITALS: TEMP 97.3
--- NOTE | 2025-03-04 11:36 | Discharge Summary ---
Discharge Summary Date of Service March 04, 2025 Principal Dx & Hospital Course #1 = Principal Diagnosis (1) Sepsis: Present on admission. 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 Infectious disease consultation and recommendations appreciated. She is currently on oral doxycycline and Augmentin through March 06. Unfortunately, the wound VAC had to be temporarily removed on February 28 due to fecal contamination but has since been replaced. She will follow-up with the wound care clinic as soon as possible (3) Acute UTI (urinary tract infection): Multiple organisms isolated. Treated while hospitalized with oral doxycycline and Augmentin. (4) Weakness: Supportive care. Continue OT and PT (5) Diabetes: ADA diet. Sliding scale coverage while hospitalized. Resume usual diabetic management at discharge (6) DUNCAN (acute kidney injury): Present on admission now resolved. Monitor intake and output. Serial labs (7) Hypomagnesemia: Corrected with replacement therapy. Serial labs (8) Morbid obesity: BMI greater than 40. Significant weight loss recommended Plan Discharge to [facility] with wound VAC in place today, March 04. Admission HPI Per Admitting Provider This is a 69 year old female with past medical history of Asthma, recurrent UTI's, MS who presented to the ED on 02/17 for ~ 3 days of weakness & fatigue. Dali was seen and examined this morning. she reports that approximately 3 days ago she started to sleep more. She states her grand daughter noticed this & encouraged her to come to the ER. She states that she has slept for about 3 days and has only woke up to go to the bathroom. She states that given she was immobile she has not taken care of her wounds much. She reports a decreased appetite. she denies any fevers or chills. she did state she had some mild chest/epigastric discomfort in the ambulance but denies any currently. She reports no SOB worse than usual & her cough is at baseline. She does not feel she has any urinary urgency, frequency, dysuria or hematuria. She does note pain to her sacral wound area & is unsure if she has had an increase amount of discharge from it. While in the ED, she had a negative CXR; mild WBC of 11.84, Creatinine within baseline @ 1.39, lactate elevated at 2.8 w/ a repeat of 1.5. Mag low at 1.3, trop negative, procal normal at 0.35 & a TSH WNL. Wound, urine, and blood cultures all pending. She was given 1L IVF, Vancomycin, Cefepime & Magnesium. Discharge Exam General-currently asleep. No fever HEENT-head atraumatic and normocephalic, pupils equal and reactive to light, extraocular muscles intact Neck-no lymphadenopathy or thyromegaly, trachea midline Chest-clear to auscultation. No rales, wheezing or rhonchi Cardiac-regular rate and rhythm, normal S1 and S2 Abdomen-normal bowel sounds, no hepatosplenomegaly Skindeep decubitus ulcer with osteomyelitis involving the coccyx. Extremities-no cyanosis, clubbing, or edema Neuro-currently asleep. Cannot assess Psych-currently asleep. Cannot assess Discharge Plan Discharge Items Patient Disposition: Transfer Assisted Fac Reason For Visit: WEAKNESS, FATIGUE Discharge Diagnosis: Sacral decubitus with osteomyelitis, sepsis, acute kidney injury, urinary tract infection, hypomagnesemia Condition on Discharge: Good Activity: Per Instructions section Non-emergency contact: Primary Care Provider Call non-emergency contact if: your symptoms worsen Follow-up/Referrals: Rhona Canales [Primary Care Provider] - Diet: Vegetarian (Lacto-Ovo) Addtl Attending Provider Instructions: Take oral doxycycline and Augmentin through March 06 per infectious disease doctors recommendations. Continue wound VAC at [facility]. Follow-up and wound care clinic as soon as possible Pending Studies at Discharge: No Stand-Alone Forms: [employer], Work/School Release, Smoking Cessation Skilled Items Patient informed of condition?: Yes DNR: Yes Discharge Level of Care: Skilled Communicable Disease: No Discharge Prognosis: Stable Lines: None Urinary Catheter: No Medications and DC Order Prescriptions: New doxycycline hyclate 100 mg Capsule 100 mg PO BID Qty: 6 0RF amoxicillin-pot clavulanate 875-125 mg Tablet 1 tab PO BIDM Qty: 6 0RF Continued (DME) Power Wheelchair Device See Rx Instructions .Route Qty: 1 0RF Rx Instructions: As directed budesonide-formoterol 160-4.5 mcg/actuation HFA aerosol inhaler 2 puff inhalation BID Qty: 10.2 2RF (DME) Aerochamber MV Spacer See Rx Instructions .ROUTE .MEDSUPPLY Qty: 1 0RF Rx Instructions: As directed omeprazole 20 mg capsule,delayed release(DR/EC) 20 mg PO PM benazepril 40 mg tablet 0 mg PO QAM Hold Instructions: Provider's Order Patient Comments: Currently on hold, original directions: 40mg by mouth once daily. Family unsure of restart date - 02/17/25 aspirin 81 mg Tablet,Delayed Release (Dr/Ec) 81 mg PO QAM Qty: 30 0RF atorvastatin 40 mg tablet 40 mg PO HS docusate sodium 100 mg capsule 100 mg PO PM PRN (Reason: Constipation) turmeric 400 mg Capsule 400 mg PO QAM albuterol sulfate 2.5 mg /3 mL (0.083 %) solution for nebulization 2.5 mg continuous nebulization DIRECTED PRN (Reason: Shortness Of Breath Or Wheezing) diclofenac potassium 50 mg tablet 50 mg PO TID PRN (Reason: Pain) vitamin B complex Tablet 1 tab PO DAILY Incruse Ellipta 62.5 mcg/actuation Blister With Device 1 inh inhalation DAILY Qty: 30 0RF levothyroxine [Synthroid] 50 mcg Tablet 50 mcg PO DAILYBB Qty: 30 0RF nystatin [Klayesta] 100,000 unit/gram powder 1 applic TOPICAL BID PRN (Reason: fungal rash) Rx Instructions: under breast Centrum Adult 50 Plus 80 mcg Tablet,Chewable 1 tab PO DAILY albuterol sulfate 90 mcg/actuation HFA aerosol inhaler 2 puff INHALATION Q4H PRN (Reason: Shortness Of Breath Or Wheezing) ipratropium bromide 21 mcg (0.03 %) spray,non-aerosol 2 spray INTRANASAL BID bumetanide 0.5 mg tablet 0 mg PO AMPM Hold Instructions: Provider's Order Patient Comments: Currently on hold, original directions: 0.5mg by mouth twice daily. Family unsure of restart date - 02/17/25 metformin 500 mg tablet 1,000 mg PO BID Patient Comments: Originally written for 500mg twice daily. Per spouse, recently increased to 1000mg twice daily. Just using this prescription up before a new one is written. 02/17/25 Discharge Orders: Discharge Order (Routine); Ordered 03/04/25 Ordered By: Shelton Constantino Admission Data Admit Date/Time: 02/17/25 13:11 Attending Provider: Shelton Constantino Admit Provider: Antonia Norris Primary Care Provider: Rhona Canales Other Providers: Antonia Norris; Pearl Teixeira; Hector Peterson; Jarord Elaine; Hansel Billings; Ok Maddox; Lynn Corona; Garrick Oliveros; Bernardo Hutton; Mila Waters; Margret Cordova; Johny Ledesma; Ena Barker; [facility]; [facility] Stay Data Consultations 02/17/25 12:03 ED Decision to Admit Stat 02/18/25 11:55 Consult General Surgery Routine 02/22/25 09:22 Consult Infectious Diseases Routine Procedures Performed Operation Date: 02/21/25 09:20 Actual Procedures p Debridement of sacral decubitus through skin, Subcuatenous, fascia, and bone, 3 x 5 cm(Not Applicable) - Vincent Hodgson MD Diagnostic Imagining Performed 02/18/25 12:27 CT abd pelvis IV con only Urgent Pending Results Patient Have Any Pending Studies at Discharge: No Discharge Instructions Given to Patient (Per Discharging Provider) Take oral doxycycline and Augmentin through March 06 per infectious disease doctors recommendations. Continue wound VAC at [facility]. Follow-up and wound care clinic as soon as possible Total Time Total Time Spent Total Time Spent (In Minutes): 45 minutes Coding Level of Care Code 29538 INP/OBS DISCH >30 MIN Diagnoses Sepsis A41.9 Infected wound T14.8XXA; L08.9 Acute UTI (urinary tract infection) N39.0 Weakness R53.1 Diabetes E11.9 DUNCAN (acute kidney injury) N17.9 Hypomagnesemia E83.42 Morbid obesity E66.01
[2025-03-04 15:12] VITALS: BP 100/62; PULSE 94; RESP 16; O2SAT 92
== END 2025-03-04 16:57 | DRG 853 ==
LOC: SUATTDRO → ED 09:25 → SUATTDRO 13:11 → EDINP 13:11 → 2N 15:37 → 3W 02-23 22:26

== ENCOUNTER 2025-03-04 19:31 | Observation (INO) ==
--- NOTE | 2025-03-04 19:55 | Emergency Department Note ---
Impression & Plan Syncope, Acute UTI, Sacral wound, Mediastinal widening ED Provider Note NAME: GARRICK HERNANDEZ AGE: 69 SEX: F : 1955 ARRIVES VIA: Ambulance INFORMANT: [Patient][nursing, EMS] ED PROVIDER(S): [Cisco Osuna MD] CHIEF COMPLAINT: Syncope HISTORY OF PRESENT ILLNESS: The patient is a 69-year-old female who left our hospital today for [place] [facility]. The patient was in for an infected sacral wound. She is currently on Augmentin and doxycycline. The patient was undergoing a dressing change [facility], she had a syncopal spell in bed. She was sent to our ER for evaluation. As per the EMS crew, the patient is now appearing somewhat altered since passing out. There were concerns for potential sepsis. No documented fever. On exam, the patient appears dehydrated. She is quite obese. She has no current complaints. PMHx/PSHx/Social Hx: See Below PHYSICAL EXAM: GENERAL: Patient is in no acute distress. HEENT: No acute trauma, normocephalic atraumatic, mucous membranes dry, no nasal congestion. NECK: No stridor, no adenopathy, no meningismus, trachea is midline. LUNGS: Clear to auscultation bilaterally when listening anterior, no wheeze, no rhonchi, breath sounds equal. HEART: Mildly tachycardic, no obvious murmur. Regular rhythm. ABDOMEN: Soft, nontender, no peritonitis. Markedly obese. There is an abdominal wall hernia in the right lower quadrant which is nontender. Dangelo catheter in place. EXTREMITIES: No cyanosis. Muscle wasting of the lower extremities noted. NEUROLOGIC: Awake, somnolent, poor historian SKIN: No jaundice, no diaphoresis. DIFFERENTIAL DIAGNOSIS: Sepsis or bacteremia, wound infection, UTI, pneumonia, dehydration, electrolyte imbalance, dysrhythmia, among others. EMERGENCY DEPARTMENT PROCEDURES: MEDICAL DECISION MAKING: There is no leukocytosis or concerning anemia. There is a normal platelet count. No coagulopathy. VBG does not show significant CO2 retention. No concerning electrolyte abnormality, no renal failure. No worrisome liver enzyme elevation. ECG shows a sinus tachycardia, no ischemia. Cardiac enzyme testing x 1 is not consistent with acute cardiac injury. Chest x-ray does not show any focal infiltrate but the mediastinum was somewhat widened. Urinalysis does show findings of infection. Brain CT shows no acute bleed or mass effect. Chest CT does not show any evidence for aortic aneurysm or dissection. On exam, the patient was slightly tachycardic. She appeared clinically dehydrated. She was not febrile. The patient received IV Zosyn as antibiotic coverage. She was given IV morphine for pain, IV Zofran for nausea. She received 1 L of IV saline. The patient had a syncopal episode today after being discharged from the hospital. This was a syncopal spell that occurred while she was in bed and her dressing on the sacral area was being changed. Certainly, the syncope could have been vasovagal. Given the recent hospital stay, given the concerns for dysrhythmia and potentially the return of sepsis, hospitalization seems indicated. I spoke with the patient and case management. The on-call hospitalist was consulted. Prior/Outside records/notes reviewed: Today's EMS notes describing her presentation and transport to this hospital. ECG per my interpretation: Indication was syncope. The ECG shows a sinus tachycardia with a rate of 115. There is some baseline artifact. There is poor R wave progression consistent with a potential anterior lateral infarct. There is no acute ST elevation, no PVCs. The QTc is 428. Continuous Cardiac Monitoring per my interpretation: An order was placed for continuous cardiac monitoring. The monitor shows a rate of 98 with normal sinus rhythm. Imaging/x-ray results per my interpretation: Chest x-ray shows a somewhat widened mediastinum although, this may be rotational and due to poor lung volume. No focal infiltrate Chronic Medical/Social conditions affecting care: Advanced age, obesity, chronic sacral wound, recent hospitalization. Care/Management discussed with: Case management, the on-call hospitalist. Level of care consideration(s): After review of the information above and other included data: --I believe the patient requires escalation of care to admission DISPOSITION: Admission Past Med/Surg History Problem List (Updated 03/05/25 @ 12:12 by Cisco Osuna MD) Mediastinal widening (Acute) Sacral wound (Acute) Acute UTI (Acute) Syncope (Acute) Type 2 diabetes mellitus Sacral wound Syncope Morbid obesity Osteomyelitis of coccyx Sepsis (Acute) Infected wound (Acute) Atelectasis Hypotension Cough (Acute) Asthma exacerbation (Acute) Shortness of breath (Acute) Candidal intertrigo (Acute) Weakness (Acute) Eosinophilic asthma Shortness of breath (Acute) Edema (Acute) Dyspnea on exertion History of UTI Thrush Yeast dermatitis (Acute) Generalized muscle weakness (Acute) Acute UTI (urinary tract infection) (Acute) Ventral hernia Diabetes Multiple sclerosis (Acute) UTI (urinary tract infection) (Acute) Abnormal finding on diagnostic imaging of left kidney Medical History Elevated serum creatinine Hypoxia Respiratory difficulty Severe persistent allergic asthma Asthma exacerbation Morbid obesity Hypothyroidism Hypertension Hypomagnesemia Hypomagnesemia Hypothermia Hypomagnesemia Dyspnea Left-sided weakness DUNCAN (acute kidney injury) Brain TIA Acute respiratory failure with hypoxia Osteoarthritis of knees, bilateral Sinusitis, acute Morbid obesity with BMI of 50.0-59.9, adult Tachy-rowena syndrome GERD (gastroesophageal reflux disease) Hypothyroidism Pancreatitis Thrombocytopenia Peripheral edema Septic shock Hypomagnesemia Fungal dermatitis Asthma Hypertension Diabetes Influenza A Pneumonia Multiple sclerosis Surgical History H/O tubal ligation H/O sinus surgery History of arthroscopic knee surgery Hx of tonsillectomy H/O: hysterectomy No pertinent past surgical history Family History Other Family history non-contributory Social History Smoking Status: Never smoker Second Hand Exposure: Yes; Do You Dip or Chew Tobacco: No; Hx Alcohol Use: No Hx Substance Use: No Preferred Language: Indonesian Communication Ability: Effective Home Improvement Contractor Required: No Beliefs That Will Affect Care: None marital status: Current Living Situation: Personal Care Facility Current Living Situation Comment: [facility] How many Children do You have: 2 Other Information That Helps Us Care for You: No Feels Safe at Home: Yes Safety Concerns: Feels Safe At This Time Diet: gluten free during the past year weight has: decreased > 10 lbs Assistive Devices: Walker and Wheelchair Allergies Allergies Allergy/AdvReac Type Severity Reaction Status Date / Time Fish Containing Products Allergy Intermediate ITCHY RASH Verified 01/23/25 19:57 shellfish derived Allergy Intermediate ITCHY RASH Verified 01/23/25 19:57 montelukast [From Singulair] Allergy Unknown CAN'T Verified 01/23/25 19:57 REMEMBER codeine AdvReac Mild NAUSEATED Verified 01/23/25 19:57 Home Meds Home Medications Medication Instructions Recorded Confirmed benazepril 40 mg tablet 0 mg PO QAM 06/25/21 03/04/25 omeprazole 20 mg capsule,delayed 20 mg PO PM 06/25/21 03/04/25 release atorvastatin 40 mg tablet 40 mg PO HS 07/20/23 03/04/25 docusate sodium 100 mg capsule 100 mg PO PM PRN Constipation 07/26/23 03/04/25 turmeric 400 mg capsule 400 mg PO QAM 07/26/23 03/04/25 albuterol sulfate 2.5 mg/3 mL 2.5 mg continuous nebulization 09/25/23 03/04/25 (0.083 %) solution for nebulization DIRECTED PRN Shortness Of Breath Or Wheezing diclofenac potassium 50 mg tablet 50 mg PO TID PRN Pain 09/25/23 03/04/25 vitamin B complex 1 tab PO DAILY 09/25/23 03/04/25 multivitamin with minerals-folic 1 tab PO DAILY 12/01/23 03/04/25 acid 80 mcg chewable tablet (Centrum Adult 50 Plus) nystatin 100,000 unit/gram topical 1 applic topical BID PRN fungal 12/01/23 03/04/25 powder (Klayesta) rash albuterol sulfate 90 mcg/actuation 2 puff inhalation Q4H PRN 01/14/25 03/04/25 aerosol inhaler Shortness Of Breath Or Wheezing ipratropium bromide 21 mcg (0.03 2 spray intranasal BID 01/14/25 03/04/25 %) nasal spray bumetanide 0.5 mg tablet 0 mg PO AMPM 01/21/25 03/04/25 metformin 500 mg tablet 1,000 mg PO BID 02/17/25 03/04/25 Previous Rx's Medication Instructions Recorded aspirin 81 mg tablet,delayed 81 mg PO QAM #30 tabs 08/16/21 release Wheelchair (Powered) (Power #1 ea 11/05/23 Wheelchair) budesonide-formoterol HFA 160 2 puff inhalation BID #10.2 grams 12/28/23 mcg-4.5 mcg/actuation aerosol inhaler inhalational spacing device #1 ea 12/28/23 (Aerochamber MV spacer) levothyroxine 50 mcg tablet 50 mcg PO DAILYBB #30 tabs 01/26/25 (Synthroid) umeclidinium 62.5 mcg/actuation 1 inh inhalation DAILY #30 ea 01/26/25 blister powder for inhalation (Incruse Ellipta) amoxicillin 875 mg-potassium 1 tab PO BIDM #6 tabs 03/04/25 clavulanate 125 mg tablet doxycycline hyclate 100 mg capsule 100 mg PO BID #6 caps 03/04/25 Results & Data (ED) Vital Signs Vital Signs - 24 hr 03/04/25 19:33 03/04/25 19:38 03/04/25 19:47 Temperature 36.5 C Temperature Source Oral Pulse Rate 101 H 107 H Pulse Rate [Apical] Respiratory Rate 18 Blood Pressure 114/78 Blood Pressure [Left Arm] Blood Pressure Mean 90 Blood Pressure Mean [Left Arm] Blood Pressure Position Lying Pulse Oximetry 95 97 Oxygen Delivery Method Room Air Room Air Oxygen Flow Rate Sepsis Recent Fever Within 48 Hours No Sepsis New/Unexplained Change in Mental Status Yes Sepsis Action Taken by Nursing Physician Notified Oxygen Flow Rate - Titration Pulse Oximetry Post Tiitration 03/04/25 19:47 03/04/25 20:16 03/04/25 20:40 Temperature Temperature Source Pulse Rate Pulse Rate [Apical] 113 H 115 H 112 H Respiratory Rate 20 18 22 Blood Pressure Blood Pressure [Left Arm] 106/77 122/76 110/81 Blood Pressure Mean Blood Pressure Mean [Left Arm] 86 91 90 Blood Pressure Position Pulse Oximetry 96 94 96 Oxygen Delivery Method Room Air Room Air Room Air Oxygen Flow Rate Sepsis Recent Fever Within 48 Hours Sepsis New/Unexplained Change in Mental Status Sepsis Action Taken by Nursing Oxygen Flow Rate - Titration Pulse Oximetry Post Tiitration 03/04/25 21:03 03/04/25 21:30 03/04/25 22:00 Temperature Temperature Source Pulse Rate Pulse Rate [Apical] 107 H 99 H 101 H Respiratory Rate 20 22 16 Blood Pressure Blood Pressure [Left Arm] 116/88 124/62 113/65 Blood Pressure Mean Blood Pressure Mean [Left Arm] 97 82 81 Blood Pressure Position Pulse Oximetry 95 96 95 Oxygen Delivery Method Room Air Oxygen Flow Rate Sepsis Recent Fever Within 48 Hours Sepsis New/Unexplained Change in Mental Status Sepsis Action Taken by Nursing Oxygen Flow Rate - Titration Pulse Oximetry Post Tiitration 03/04/25 22:33 03/04/25 22:34 Temperature Temperature Source Pulse Rate Pulse Rate [Apical] 102 H Respiratory Rate 20 Blood Pressure Blood Pressure [Left Arm] 99/65 L Blood Pressure Mean Blood Pressure Mean [Left Arm] 76 Blood Pressure Position Pulse Oximetry 100 88 L Oxygen Delivery Method Nasal Cannula Room Air Nasal Cannula Oxygen Flow Rate 2 Sepsis Recent Fever Within 48 Hours Sepsis New/Unexplained Change in Mental Status Sepsis Action Taken by Nursing Oxygen Flow Rate - Titration 2 Pulse Oximetry Post Tiitration 100 Home Medications Current Medication List: was personally reviewed by me Laboratory Data Attestation: I reviewed the patient's lab results. 03/05/25 08:22 03/05/25 05:58 Lab Results 03/04/25 03/04/25 Range/Units 19:49 19:55 WBC 9.73 (4.8-10.8) K/ul RBC 3.89 L (4.20-5.40) M/uL Hgb 11.6 L (12.0-16.0) g/dl Hct 36.9 L (37.0-47.0) % MCV 94.9 (80.0-100.0) fL MCH 29.8 (25.0-34.0) pg MCHC 31.4 L (32.0-36.0) g/dL RDW Std Deviation 63.5 H (36.4-46.3) fL RDW Coeff of Kaia 18.3 H (11.5-14.5) % Plt Count 386 (130-400) K/uL MPV 11.2 (9.4-12.4) fL Immature Gran % (Auto) 0.3 % Neut % (Auto) 59.9 % Lymph % (Auto) 25.0 % [place] % (Auto) 12.0 % Eos % (Auto) 2.2 % Baso % (Auto) 0.6 % Neut # (Auto) 5.83 (1.40-6.50) K/uL Lymph # (Auto) 2.43 (1.20-3.40) K/uL [place] # (Auto) 1.17 H (0.11-0.59) K/uL Eos # (Auto) 0.21 (0.00-0.50) K/uL Baso # (Auto) 0.06 (0.00-0.20) K/uL Immature Gran # (Auto) 0.03 (0.01-0.20) K/uL PT 11.1 (9.0-12.0) Seconds INR 1.0 (0.9-1.1) APTT 26 (21-31) Seconds PTT Ratio 1.0 VBG pH 7.42 H (7.36-7.41) VBG pCO2 44 (38-50) mmHg VBG pO2 50 mmHg VBG HCO3 29 mmol/L VBG O2 Saturation 80.1 % VBG Base Excess 3.4 mEq/L Sodium 140 (136-145) mmol/L Potassium 4.4 (3.5-5.1) mmol/L Chloride 103 (98-107) mmol/L Carbon Dioxide 27 (21-32) mmol/L Anion Gap 10 (3-11) BUN 31 H (6-23) mg/dl Creatinine 1.06 (0.6-1.2) mg/dl Est Cr Clr Drug Dosing Not Reportable eGFR 56.51 BUN/Creatinine Ratio 29.2 H (10-20) Glucose 161 H (70-99(Fasting)) mg/dl Lactate 1.1 (0.4-2.0) mmol/L Calcium 10.6 H (8.6-10.3) mg/dl Magnesium 1.7 (1.7-2.4) mg/dl Total Bilirubin 0.4 (0.2-1.0) mg/dl Direct Bilirubin 0.1 (0-0.2) mg/dl AST 17 (13-39) U/L ALT 12 (7-52) U/L Alkaline Phosphatase 94 (34-104) U/L Troponin I High Sens 2.6 (0-14) pg/ml Total Protein 7.6 (6.0-8.3) gm/dl Albumin 3.4 (3.4-5.0) gm/dl Procalcitonin 0.16 (0-0.5) ng/ml Urine Color Yellow Urine Appearance Cloudy A (Clear) Urine pH 5.5 (4.5-7.5) Ur Specific [place] 1.026 (1.000-1.030) Urine Protein 1+ H (Negative) Urine Glucose (UA) Negative (Negative) Urine Ketones 1+ H (Negative) Urine Blood 3+ H (Negative) Urine Nitrite Negative (Negative) Urine Bilirubin Negative (Negative) Urine Urobilinogen Negative (Negative) Ur Leukocyte Esterase 2+ H (Negative) Urine WBC (Auto) >50 H (0-5) /hpf Urine RBC (Auto) >20 H (0-2) /hpf U Hyaline Cast (Auto) 3-5 H (0-2) /lpf U Epithel Cells (Auto) 3-5 H (0-2) /hpf Urine Bacteria (Auto) None Seen (None Seen) Urine Yeast Present A (None Prsent) Urine Comment Administered Medications Aspirin (Aspirin 81 Mg Ectab) 81 mg PO QAM [facility] Stop: 04/04/25 08:59 Last Admin: 03/05/25 09:07 Dose: 81 mg Documented By: KIRK Fluticasone/Vilanterol (Fluticasone/Vilanterol 100/25mcg 14 Puffs/Inhaler) 1 puffs INH DAILY [facility]; Protocol Stop: 04/04/25 08:59 Last Admin: 03/05/25 09:08 Dose: 1 puffs Documented By: KIRK Lactated Ringer's (Lr) 1,000 mls @ 80 mls/hr IV .[id number] [facility] Stop: 03/07/25 23:44 Last Admin: 03/05/25 05:49 Dose: 80 mls/hr Documented By: Infusion: 03/05/25 05:49 Dose: Infused [place]ed [place] [facility] [place]: 03/05/25 00:55 Dose: 80 mls/hr Documented By: DARYN Piperacillin Sod/Tazobactam Sod (Zosyn) 4.5 gm in 100 mls @ 25 mls/hr IV Q8H [facility]; Protocol Stop: 03/10/25 01:59 Last Admin: 03/05/25 09:08 Dose: 25 mls/hr Documented By: Infusion: 03/05/25 05:49 Dose: Infused Documented By: Admin: 03/05/25 02:34 Dose: 25 mls/hr Documented By: DARYN Insulin Aspart (Insulin Aspart Per Unit Charge) 0 units SC ACHS [facility] Stop: 04/04/25 07:29 Last Admin: 03/05/25 09:06 Dose: Not Given Documented By: KIRK Ipratropium Ames (Ipratropium [place] Nasal [place] 0.03% 30 Ml) 2 sprays NA BID SRIDHAR Stop: 04/04/25 08:59 Last Admin: 03/05/25 09:07 Dose: 1 sprays Documented By: KIRK Levothyroxine Sodium (Levothyroxine Sodium 50 Mcg Tablet) 50 mcg PO DAILYBB SRIDHAR Stop: 04/04/25 06:29 Last Admin: 03/05/25 06:00 Dose: 50 mcg Documented By: DARYN Umeclidinium [place] (Umeclidinium [place] 62.5mcg/Blister 7 Puffs/Inhaler) 1 puffs INH DAILY SRIDHAR Stop: 04/04/25 08:59 Last Admin: 03/05/25 09:07 Dose: 1 puffs Documented By: KIRK Discontinued Medications Piperacillin Sod/Tazobactam Sod (Zosyn) 4.5 gm in 100 mls @ 200 mls/hr IV NOW ONE Stop: 03/04/25 20:19 Last Infusion: 03/04/25 21:56 Dose: Infused Documented By: abl Admin: 03/04/25 20:47 Dose: 200 mls/hr Documented By: abl Sodium Chloride (Nss) 1,000 mls @ 999 mls/hr IV .Q1H1M ONE Stop: 03/04/25 21:38 Last Infusion: 03/04/25 21:56 Dose: Infused Documented By: abl Admin: 03/04/25 20:47 Dose: 999 mls/hr Documented By: abl Lactated Ringer's (Lr) 500 mls @ 999 mls/hr IV .Q31M STA Stop: 03/04/25 23:29 Last Infusion: 03/05/25 00:53 Dose: Infused Documented By: Admin: 03/04/25 23:25 Dose: 999 mls/hr Documented By: MBL Ioversol (Optiray 320 125ml) 118 ml IV ONCE ONE Stop: 03/04/25 23:51 Last Admin: 03/04/25 23:50 Dose: 118 ml Documented By: ALAN Morphine Sulfate (Morphine Sulfate 4 Mg/Ml 1 Ml Carp\Vial) 4 mg IV NOW STA Stop: 03/04/25 21:35 Last Admin: 03/04/25 21:56 Dose: 4 mg Documented By: abl Ondansetron HCl (Ondansetron Inj 2 Mg/Ml 2 Ml Vial) 4 mg IV NOW STA Stop: 03/04/25 21:35 Last Admin: 03/04/25 21:56 Dose: 4 mg Documented By: abl Discharge Plan Visit Data Chief Complaint: Syncope Stated Complaint: SYNCOPE, NOW ALTERED ED Provider: Cisco Osuna Discharge Problem: Syncope, Acute UTI, Sacral wound, Mediastinal widening Patient Disposition: Admitted As Inpatient Condition: Fair Discharge Instructions Interventions: ED Discharge Assessment Last Done: 03/04/25 23:28 Discharge Problem: Syncope Qualifiers: Syncope type: unspecified Qualified Code(s): R55 - Syncope and collapse Sacral wound Qualifiers: Encounter type: subsequent encounter Qualified Code(s): S31.000D - Unspecified open wound of lower back and pelvis without penetration into retroperitoneum, subsequent encounter
[2025-03-04 20:02] LABS: Base Excess VBG 3.4 mEq/L; HCO3 VBG 29 mmol/L; Oxygen Saturation VBG 80.1 %; PCO2 VBG 44 mmHg (38-50); PO2 VBG 50 mmHg; pH VBG 7.42 (7.36-7.41)
[2025-03-04 20:05] LABS: Hematocrit (blood only) 36.9 % (37.0-47.0); Hemoglobin 11.6 g/dl (12.0-16.0); Immature Granulocytes # (auto) 0.03 K/uL (0.01-0.20); Immature Granulocytes % (auto) 0.3 %; Mean Corpuscular Hemoglobin 29.8 pg (25.0-34.0); Mean Corpuscular Volume 94.9 fL (80.0-100.0); Platelet Count 386 K/uL (130-400); RDW Standard Deviation 63.5 fL (36.4-46.3); Red Blood Count 3.89 M/uL (4.20-5.40); White Blood Count 9.73 K/ul (4.8-10.8)
[2025-03-04 20:23] LABS: Alanine Aminotransferase 12 U/L (7-52); Alkaline Phosphatase 94 U/L (34-104); Anion Gap 10 (3-11); Bilirubin,Total 0.4 mg/dl (0.2-1.0); Blood Urea Nitrogen 31 mg/dl (6-23); Calcium 10.6 mg/dl (8.6-10.3); Carbon Dioxide 27 mmol/L (21-32); Chloride 103 mmol/L (98-107); Glucose 161 mg/dl (70-99(Fasting)); Magnesium 1.7 mg/dl (1.7-2.4); Potassium 4.4 mmol/L (3.5-5.1); Sodium 140 mmol/L (136-145); Total Protein 7.6 gm/dl (6.0-8.3)
[2025-03-04 20:29] LABS: Appearance Urine Cloudy (Clear); Bacteria Urine Automated None Seen (None Seen); Glucose Urine UA Negative (Negative); RBC Urine Automated >20 /hpf (0-2); WBC Urine Automated >50 /hpf (0-5)
[2025-03-04 20:34] LABS: INR 1.0 (0.9-1.1); Partial Thromboplastin Time 26 Seconds (21-31); Prothrombin Time 11.1 Seconds (9.0-12.0)
[2025-03-04] MEDS: PIPERACILLIN/TAZOBACTAM 4.5 GM/100 ML BAG IV ONE (20:47)
[2025-03-04] MEDS: SODIUM CHLORIDE 0.9% 1,000 ML IV ONE (20:47)
[2025-03-04] MEDS: MoRPHine SULFATE 4 MG/ML 1 ML CARP\\VIAL IV STA (21:56)
[2025-03-04] MEDS: ONDANSETRON INJ 2 MG/ML 2 ML VIAL IV STA (21:56)
--- NOTE | 2025-03-04 21:59 | CT Scan Report ---
Exam(s): CT HEAD Without Contrast EXAM: CT Head Without Intravenous Contrast CLINICAL HISTORY: Confusion. TECHNIQUE: Axial computed tomography images of the head/brain without intravenous contrast. CTDI is 58.1 mGy and DLP is 1206.5 mGy-cm. Automated exposure control was utilized for the study. A dose lowering technique was utilized adhering to the principles of ALARA. COMPARISON: No relevant prior studies available. FINDINGS: Brain: No intracranial hemorrhage, mass-effect or midline shift. No abnormal extra axial fluid. No evidence of acute infarct. Moderate periventricular white matter hypodensities are most consistent with chronic microangiopathy. Ventricles: Unremarkable. No ventriculomegaly. Bones/joints: Unremarkable. No acute fracture. Soft tissues: Unremarkable. Sinuses: Severe mucosal thickening of the paranasal sinuses with remodeling of the bone concerning for acute on chronic sinusitis. Mastoid air cells: Unremarkable as visualized. No mastoid effusion. IMPRESSION: 1. Severe mucosal thickening of the paranasal sinuses with remodeling of the bone concerning for acute on chronic sinusitis. 2. No acute intracranial finding. Electronically signed by: Jennifer Power MD 03/04/25 21:58 PM
--- NOTE | 2025-03-04 22:39 | History & Physical Report ---
Date of Service March 04, 2025 Assessment & Plan (1) Syncope: (2) UTI (urinary tract infection): (3) Sacral wound: (4) Type 2 diabetes mellitus: (5) Hypoxia: Plan 69-year-old female PMHx asthma, recurrent UTI, MS, known sacral wound, hypothyroidism, T2DM with most recent hospital admission 02/17/2025 until 03/04/2025 for sepsis with sacral wound who returns the day of discharge after syncopal episode per [facility]. Her evaluation in the ED is significant for urinalysis positive for UTI, however her CBC reveals no leukocytosis, and her lactate and procalcitonin are WNL. She did constantly hypoxic while in the ED and was placed on O2 via NC. CXR revealed interval widening of the mediastinum, admit for further evaluation of this is pending. Given syncopal episode, presence of UTI, and some hemodynamic instability at times (hypotension, slight tachycardia, hypoxia) patient is to be admitted for UTI with respective attention to additional topics as noted. #Syncope/UTI/Sacral wound Presenting the same day as d/c from hospital for syncopal event at nursing facility following re-dressing of her sacral wound. Denies symptoms prior to, only having some pain in buttock at time of admission. H/o chronic UTIs. Sepsis criteria initially not met during ED course, however by time admission was in progress the patient did develop hypotension and elevated HR. Suspect possible early start of sepsis, likely UTI as source. Suspect syncope may be vasovagal vs related to UTI vs other. - CBC w/o leukocytosis, H/H 11.6/36.9; PT/INR WNL; VBGs pH 7.42; CMP BUN 31, ratio 29.2, glucose 161 - CBC am - Troponin 2.6; lactate 1.1; Ca 10.6; procal 0.16 - EKG pending - CXR with interval development of widening of the mediastinum - pending chest CTA - Head CT severe mucosal thickening of the paranasal sinuses with remodeling of bone concerning for acute on chronic sinusitis, no acute intracranial findings - Fall precautions - IVF LR @ 80 mL/hr - Acteminophen prn fever/pain - Zofran prn N/V - D/c po abx at this time - Zosyn IV - Wound care daily - Monitor on tele #Hypoxia/Asthma No SOB or cough, was hypoxic in ED briefly at 88% on RA. Placed on NC. H/o asthma, on albuterol, symbicort, incruse ellipta daily. - CBC without leukocytosis; VBGs pH 7.42 - CXR with widened mediastinum -- pending chest CTA - Continue inhalers - O2 prn via NC or adjust as necessary -- No O2 at baseline - wean as patient tolerates #T2DM H/o DMT2; On metformin at home. - Most recent A1C 01/2025 @ 6.7% - Hold home meds - SSI with target BSG range 110-140mg/dL, CF 25, carb ratio 10 - BSG ACHS - Adjust regimen as needed #HLD- Atorvastatin - continue #Hypothyroidism- Levothyroxine - continue #GERD- Omeprazole - continue Dispo: Admit, PCU VTE Prophylaxis: Heparin - pending chest imaging This document was dictated utilizing Fridge. Please excuse any grammatical errors that may be secondary to use of this software. Admission and Anticipated Discharge Date Admission Date: 03/04/2025 History of Present Illness Chief Complaint: Syncope Primary Care Provider: Rhona Canales 69-year-old female PMHx asthma, recurrent UTI, MS, known sacral wound, hypothyroidism, T2DM with most recent hospital admission 02/17/2025 until 03/04/2025 for sepsis with sacral wound who returns the day of discharge after syncopal episode per nursing staff at [facility]. Patient states her only complaint at present and she is "pain in my butt". She reports on multiple occasions that she does not want to be in the hospital and wants to see her daughter, Dianna. She states that she was told she passed out earlier in the day. She does not recall much of the event and is rather limited in providing history. She denies any chest pain, dizziness, lightheadedness, or nausea. Does not believe that she hit her head. She is denying chest pain, SOB, palpitations, abdominal pain, N/V/D/C, numbness/tingling, fever/chills, URI symptoms, weakness, or falls. ED evaluation reveals CBC without leukocytosis, H&H 8.6/36.9; PT/INR WNL; urine shows pH 7.39; sodium 131, troponin 0.1 glucose 160; lactate 1.1; calcium 10.6; troponin 2.6, procalcitonin 0.16; UA significant for infection; head CT severe mucosal thickening of the paranasal sinuses with remodeling of the bone concerning for acute on chronic sinusitis but no acute intracranial findings; CXR pending official read.; Provided with 1 LSS, Zosyn 4.5 g IV, morphine 4 mg IV, and Zofran 4 mg IV in ED. Please see Dr. Butterfield's attestation for adjustments/additions to treatment plan. Allergies Allergy/AdvReac Type Severity Reaction Status Date / Time Fish Containing Products Allergy Intermediate ITCHY RASH Verified 01/23/25 19:57 shellfish derived Allergy Intermediate ITCHY RASH Verified 01/23/25 19:57 montelukast [From Singulair] Allergy Unknown CAN'T Verified 01/23/25 19:57 REMEMBER codeine AdvReac Mild NAUSEATED Verified 01/23/25 19:57 Home Medications Medication Instructions Recorded Confirmed Type benazepril 40 mg tablet 0 mg PO QAM 06/25/21 03/04/25 History omeprazole 20 mg capsule,delayed 20 mg PO PM 06/25/21 03/04/25 History release aspirin 81 mg tablet,delayed 81 mg PO QAM #30 tabs 08/16/21 03/04/25 Rx release atorvastatin 40 mg tablet 40 mg PO HS 07/20/23 03/04/25 History docusate sodium 100 mg capsule 100 mg PO PM PRN Constipation 07/26/23 03/04/25 History turmeric 400 mg capsule 400 mg PO QAM 07/26/23 03/04/25 History albuterol sulfate 2.5 mg/3 mL 2.5 mg continuous nebulization 09/25/2302/12 History (0.083 %) solution for nebulization DIRECTED PRN Shortness Of Breath Or Wheezing diclofenac potassium 50 mg tablet 50 mg PO TID PRN Pain 09/25/23 03/04/25 History vitamin B complex 1 tab PO DAILY 09/25/23 03/04/25 History Wheelchair (Powered) (Power #1 ea 11/05/23 03/04/25 Rx Wheelchair) multivitamin with minerals-folic 1 tab PO DAILY 12/01/23 03/04/25 History acid 80 mcg chewable tablet (Centrum Adult 50 Plus) nystatin 100,000 unit/gram topical 1 applic topical BID PRN fungal 12/01/23 03/04/25 History powder (Klayesta) rash budesonide-formoterol HFA 160 2 puff inhalation BID #10.2 grams 12/28/23 03/04/25 Rx mcg-4.5 mcg/actuation aerosol inhaler inhalational spacing device #1 ea 12/28/23 03/04/25 Rx (Aerochamber MV spacer) albuterol sulfate 90 mcg/actuation 2 puff inhalation Q4H PRN 01/14/25 03/04/25 History aerosol inhaler Shortness Of Breath Or Wheezing ipratropium bromide 21 mcg (0.03 2 spray intranasal BID 01/14/25 03/04/25 History %) nasal spray bumetanide 0.5 mg tablet 0 mg PO AMPM 01/21/25 03/04/25 History levothyroxine 50 mcg tablet 50 mcg PO DAILYBB #30 tabs 01/26/25 03/04/25 Rx (Synthroid) umeclidinium 62.5 mcg/actuation 1 inh inhalation DAILY #30 ea 01/26/25 03/04/25 Rx blister powder for inhalation (Incruse Ellipta) metformin 500 mg tablet 1,000 mg PO BID 02/17/25 03/04/25 History amoxicillin 875 mg-potassium 1 tab PO BIDM #6 tabs 03/04/25 03/04/25 Rx clavulanate 125 mg tablet doxycycline hyclate 100 mg capsule 100 mg PO BID #6 caps 03/04/25 03/04/25 Rx Past Med/Surg History Problem List (Updated 03/04/25 @ 23:39 by J Carlos Rivera PA-C) Type 2 diabetes mellitus Sacral wound Syncope Morbid obesity Osteomyelitis of coccyx Sepsis (Acute) Infected wound (Acute) Atelectasis Hypotension Cough (Acute) Asthma exacerbation (Acute) Shortness of breath (Acute) Candidal intertrigo (Acute) Weakness (Acute) Eosinophilic asthma Shortness of breath (Acute) Edema (Acute) Dyspnea on exertion History of UTI Thrush Yeast dermatitis (Acute) Generalized muscle weakness (Acute) Acute UTI (urinary tract infection) (Acute) Ventral hernia Diabetes Multiple sclerosis (Acute) UTI (urinary tract infection) (Acute) Abnormal finding on diagnostic imaging of left kidney Medical History Elevated serum creatinine Hypoxia Respiratory difficulty Severe persistent allergic asthma Asthma exacerbation Morbid obesity Hypothyroidism Hypertension Hypomagnesemia Hypomagnesemia Hypothermia Hypomagnesemia Dyspnea Left-sided weakness DUNCAN (acute kidney injury) Brain TIA Acute respiratory failure with hypoxia Osteoarthritis of knees, bilateral Sinusitis, acute Morbid obesity with BMI of 50.0-59.9, adult Tachy-rowena syndrome GERD (gastroesophageal reflux disease) Hypothyroidism Pancreatitis Thrombocytopenia Peripheral edema Septic shock Hypomagnesemia Fungal dermatitis Asthma Hypertension Diabetes Influenza A Pneumonia Multiple sclerosis Surgical History H/O tubal ligation H/O sinus surgery History of arthroscopic knee surgery Hx of tonsillectomy H/O: hysterectomy No pertinent past surgical history Family History Other Family history non-contributory Social History Smoking Status: Never smoker Second Hand Exposure: Yes; Do You Dip or Chew Tobacco: No; Hx Alcohol Use: No Hx Substance Use: No Preferred Language: Chinese Communication Ability: Effective General Laborer Required: No Beliefs That Will Affect Care: None marital status: Current Living Situation: Personal Care Facility Current Living Situation Comment: [facility] How many Children do You have: 2 Other Information That Helps Us Care for You: No Feels Safe at Home: Yes Safety Concerns: Feels Safe At This Time Diet: gluten free during the past year weight has: decreased > 10 lbs Assistive Devices: Walker and Wheelchair Review of Systems Review of Systems: All systems reviewed & are unremarkable except as noted in Subjective Physical Exam Physical Exam: General: No acute distress, obese Skin: Warm and dry Head: Normocephalic, atraumatic Eyes: PERRL, conjunctivae clear, sclera non-icteric ENT: External ear and ear canal without swelling; nose atraumatic; good dentition, tongue normal appearance, pharynx normal Neck: Supple, no LAD Cardio: RRR, no M/G/R, S1 and S2 normal Resp: Wearing O2 via NC (none at baseline); No respiratory distress, Lungs CTA in all lobes bilaterally, no wheezes, rales, or rhonchi Abdomen: Soft, symmetric, nontender; No masses or hepatosplenomegaly; Bowel sounds normoactive : Urinary catheter in place, draining minimal amounts of clear yellow urine in bag MSK: No deformities; pulses palpable and equal; no edema. Neuro: Awake, alert; Sensation intact bilaterally; CN grossly intact Psych: Tearful, "I do not want to be here again."; Location "[facility]", year "2024", president "Krystle" Results & Data Results & Data Vital Signs (Past 12 Hours) Vital Signs Temp Pulse Pulse Resp BP BP Pulse Ox 03/04/25 22:34 88 L 03/04/25 22:33 102 H 20 99/65 L 100 03/04/25 22:00 101 H 16 113/65 95 03/04/25 21:30 99 H 22 124/62 96 03/04/25 21:03 107 H 20 116/88 95 03/04/25 20:40 112 H 22 110/81 96 03/04/25 20:16 115 H 18 122/76 94 03/04/25 19:47 113 H 20 106/77 96 03/04/25 19:47 97 03/04/25 19:38 107 H 03/04/25 19:33 36.5 C 101 H 18 114/78 95 O2 Del Method O2 Flow Rate 03/04/25 22:34 Room Air, Nasal Cannula 03/04/25 22:33 Nasal Cannula 2 03/04/25 22:00 03/04/25 21:30 Room Air 03/04/25 21:03 03/04/25 20:40 Room Air 03/04/25 20:16 Room Air 03/04/25 19:47 Room Air 03/04/25 19:47 Room Air 03/04/25 19:38 03/04/25 19:33 Room Air Laboratory Results 03/04/25 19:49 Urine Culture - Pending Urine,Straight Cath 03/04/25 19:49 Aerobic Blood Culture - Pending Blood Anaerobic Blood Culture - Pending 03/04/25 19:49 Aerobic Blood Culture - Pending Blood Anaerobic Blood Culture - Pending 03/04/25 03/04/25 19:55 19:49 WBC 9.73 RBC 3.89 L Hgb 11.6 L Hct 36.9 L MCV 94.9 MCH 29.8 MCHC 31.4 L RDW Std Deviation 63.5 H RDW Coeff of Kaia 18.3 H Plt Count 386 MPV 11.2 Immature Gran % (Auto) 0.3 Neut % (Auto) 59.9 Lymph % (Auto) 25.0 [place] % (Auto) 12.0 Eos % (Auto) 2.2 Baso % (Auto) 0.6 Neut # (Auto) 5.83 Lymph # (Auto) 2.43 [place] # (Auto) 1.17 H Eos # (Auto) 0.21 Baso # (Auto) 0.06 Immature Gran # (Auto) 0.03 PT 11.1 INR 1.0 APTT 26 PTT Ratio 1.0 VBG pH 7.42 H VBG pCO2 44 VBG pO2 50 VBG HCO3 29 VBG O2 Saturation 80.1 VBG Base Excess 3.4 Sodium 140 Potassium 4.4 Chloride 103 Carbon Dioxide 27 Anion Gap 10 BUN 31 H Creatinine 1.06 Est Cr Clr Drug Dosing Not Reportable eGFR 56.51 BUN/Creatinine Ratio 29.2 H Glucose 161 H Lactate 1.1 Calcium 10.6 H Magnesium 1.7 Total Bilirubin 0.4 Direct Bilirubin 0.1 AST 17 ALT 12 Alkaline Phosphatase 94 Troponin I High Sens 2.6 Total Protein 7.6 Albumin 3.4 Procalcitonin 0.16 Urine Color Yellow Urine Appearance Cloudy A Urine pH 5.5 Ur Specific [place] 1.026 Urine Protein 1+ H Urine Glucose (UA) Negative Urine Ketones 1+ H Urine Blood 3+ H Urine Nitrite Negative Urine Bilirubin Negative Urine Urobilinogen Negative Ur Leukocyte Esterase 2+ H Urine WBC (Auto) >50 H Urine RBC (Auto) >20 H U Hyaline Cast (Auto) 3-5 H U Epithel Cells (Auto) 3-5 H Urine Bacteria (Auto) None Seen Urine Yeast Present A Urine Comment Diagnostic Findings Chest X-Ray 03/04/25 19:47 CR Exam(s): XR CXR 1 VIEW EXAM: XR Chest, 1 View CLINICAL HISTORY: Sepsis. TECHNIQUE: Frontal view of the chest. COMPARISON: Chest radiograph 02/17/2025 FINDINGS: Lungs: Unremarkable. No consolidation. Pleural space: Unremarkable. No pneumothorax. Heart: Unremarkable. No cardiomegaly. Mediastinum: Interval development of widening of the mediastinum. Bones/joints: There are degenerative changes of the spine. No acute fracture. IMPRESSION: Interval development of widening of the mediastinum. Recommend further evaluation with CTA of the chest. Communications: Call Doctor Above results Electronically signed by: Jennifer Power MD 03/04/25 23:[address] 03/04/25 19:47 Exam(s): CT HEAD Without Contrast EXAM: CT Head Without Intravenous Contrast CLINICAL HISTORY: Confusion. TECHNIQUE: Axial computed tomography images of the head/brain without intravenous contrast. CTDI is 58.1 mGy and DLP is 1206.5 mGy-cm. Automated exposure control was utilized for the study. A dose lowering technique was utilized adhering to the principles of ALARA. COMPARISON: No relevant prior studies available. FINDINGS: Brain: No intracranial hemorrhage, mass-effect or midline shift. No abnormal extra axial fluid. No evidence of acute infarct. Moderate periventricular white matter hypodensities are most consistent with chronic microangiopathy. Ventricles: Unremarkable. No ventriculomegaly. Bones/joints: Unremarkable. No acute fracture. Soft tissues: Unremarkable. Sinuses: Severe mucosal thickening of the paranasal sinuses with remodeling of the bone concerning for acute on chronic sinusitis. Mastoid air cells: Unremarkable as visualized. No mastoid effusion. IMPRESSION: 1. Severe mucosal thickening of the paranasal sinuses with remodeling of the bone concerning for acute on chronic sinusitis. 2. No acute intracranial finding. Electronically signed by: Jennifer Power MD 03/04/25 21:58 PM Medications Administered 1L NSS Zofran 4 mg IV Morphine 4 mg IV Zosyn 4.5 g IV Code Status & VTE Plan Code Status Full Supervising Physician Co-Signing Physician Notes patient seen examined, chart reviewed, case discussed with ANTOLIN Rivera I agree with assessment and plan as document above. Patient recently hospitalized from for sepsis and sacral wound presenting after a syncopal episode which occurred at [facility]. Hypoxic in the ER requiring supplemental oxygen via nasal cannula Workup suggestive of UTI Will provide IV fluids gentle Will continue antibiotics for now, Zosyn Supplemental oxygen as needed Remainder as above PG Care Time/CCT Total # of Minutes Spent Total Time Spent with Patient: Total time spent is greater than 50% in coordination of care (as documented) at patient's floor/unit and/or counseling patient: Coding Level of Care Code 46696 INT INP/OBS CARE 3/75MIN Diagnoses Syncope R55 UTI (urinary tract infection) N39.0 Sacral wound S31.000A Type 2 diabetes mellitus E11.9 Hypoxia R09.02
--- NOTE | 2025-03-04 23:09 | XRay Report ---
Exam(s): XR CXR 1 VIEW EXAM: XR Chest, 1 View CLINICAL HISTORY: Sepsis. TECHNIQUE: Frontal view of the chest. COMPARISON: Chest radiograph 02/17/2025 FINDINGS: Lungs: Unremarkable. No consolidation. Pleural space: Unremarkable. No pneumothorax. Heart: Unremarkable. No cardiomegaly. Mediastinum: Interval development of widening of the mediastinum. Bones/joints: There are degenerative changes of the spine. No acute fracture. IMPRESSION: Interval development of widening of the mediastinum. Recommend further evaluation with CTA of the chest. Communications: Call Doctor Above results Electronically signed by: Jennifer Power MD 03/04/25 23:08 PM
[2025-03-04] MEDS: LACTATED RINGER'S 500 ML IV STA (23:25)
[2025-03-04] MEDS ORDERED: GLUCAGON FOR INJ 1 MG VIAL SQ PRN (23:37)
[2025-03-04] MEDS ORDERED: DEXTROSE 50% 50 ML SYRINGE IV PRN (23:37)
[2025-03-04] MEDS ORDERED: GLUCOSE 40% GEL 15 GM TUBE PO PRN (23:37)
[2025-03-04] MEDS ORDERED: CARBOHYDRATES FOR HYPOGLYCEMIA PO PRN (23:37)
[2025-03-04] MEDS ORDERED: GLUCOSE 10 TAB/TUBE PO PRN (23:37)
[2025-03-04] MEDS: OPTIRAY 320 125ml IV ONE (23:50)
[2025-03-05] MEDS ORDERED: DOCUSATE SODIUM 100 MG CAP PO PRN (00:06)
[2025-03-05] MEDS ORDERED: ONDANSETRON INJ 2 MG/ML 2 ML VIAL IV PRN (00:06)
[2025-03-05] MEDS ORDERED: MELATONIN 3 MG TAB PO PRN (00:06)
[2025-03-05] MEDS ORDERED: ALBUTEROL 0.083% NEBU SOLN 3 ML VIAL NEB PRN (00:06)
[2025-03-05] MEDS ORDERED: ALBUTEROL HFA 8 GM INHALER INH PRN (00:06)
[2025-03-05] MEDS ORDERED: POLYETHYLENE (MIRALAX) 17 GM PACK PO PRN (00:06)
[2025-03-05] MEDS: LACTATED RINGER'S 1,000 ML IV SCH (00:55)
--- NOTE | 2025-03-05 01:17 | CT Scan Report ---
Exam(s): CTA CHEST W/WO Contrast IV Amt: 118 cc's optiray 320 EXAM: CT Angiography Chest Without and With Intravenous Contrast CLINICAL HISTORY: Widened mediastinum. TECHNIQUE: Axial computed tomographic angiography images of the chest without and with intravenous contrast. MIPS images were created and reviewed. CTDI is 50.76 mGy and DLP is 2220.37 mGy-cm. Automated exposure control was utilized for the study. A dose lowering technique was utilized adhering to the principles of ALARA. MIP reconstructed images were created and reviewed. CONTRAST: Patient received 118 cc's optiray 320 of IV contrast COMPARISON: Chest radiograph earlier today. FINDINGS: Pulmonary arteries: Unremarkable. No pulmonary embolism. Aorta: Mild atherosclerotic calcifications. No aortic aneurysm or dissection. Lungs: Left basilar atelectasis. No consolidation. Pleural space: Unremarkable. No significant effusion. No pneumothorax. Heart: Dense coronary artery calcifications are present. No cardiomegaly. No significant pericardial effusion. No evidence of RV dysfunction. Bones/joints: No acute fracture. No dislocation. Soft tissues: Unremarkable. Lymph nodes: Unremarkable. No enlarged lymph nodes. IMPRESSION: 1. No aortic aneurysm or dissection. The previously noted widened mediastinum represent artifact due to patient rotation and low lung volumes. 2. Significant coronary artery calcifications are present. Consider cardiology referral. Electronically signed by: Jennifer Power MD 03/05/25 01:16 AM
[2025-03-05] MEDS: PIPERACILLIN/TAZOBACTAM 4.5 GM/100 ML BAG IV SCH (02:34)
[2025-03-05] MEDS: LEVOTHYROXINE SODIUM 50 MCG TABLET PO SCH (06:00)
[2025-03-05 07:29] LABS: Anion Gap 7.0 (3-11); Blood Urea Nitrogen 25.0 mg/dl (6-23); Calcium 9.6 mg/dl (8.6-10.3); Carbon Dioxide 30.0 mmol/L (21-32); Chloride 105.0 mmol/L (98-107); Creatinine Clr Calc Pharmacy 60.0 ml/min; Glucose 103.0 mg/dl (70-99(Fasting)); Potassium 4.7 mmol/L (3.5-5.1); Sodium 142.0 mmol/L (136-145)
[2025-03-05 07:36] LABS: Hematocrit (blood only) 24.2 % (37.0-47.0); Hemoglobin 7.5 g/dl (12.0-16.0); Mean Corpuscular Hemoglobin 30.0 pg (25.0-34.0); Mean Corpuscular Volume 96.8 fL (80.0-100.0); Platelet Count 384 K/uL (130-400); RDW Standard Deviation 65.7 fL (36.4-46.3); Red Blood Count 2.50 M/uL (4.20-5.40); White Blood Count 9.98 K/ul (4.8-10.8)
--- NOTE | 2025-03-05 08:34 | Hospitalist Progress Note ---
Date of Service March 05, 2025 Assessment & Plan (1) Syncope: (2) UTI (urinary tract infection): (3) Sacral wound: (4) Type 2 diabetes mellitus: Plan 69-year-old female PMHx asthma, recurrent UTI, MS, known sacral wound, hypothyroidism, T2DM with most recent hospital admission 02/17/2025 until 03/04/2025 for sepsis with sacral wound who returns the day of discharge after syncopal episode per nursing staff at [facility]. Her evaluation in the ED is significant for urinalysis positive for UTI, however her CBC reveals no leukocytosis, and her lactate and procalcitonin are WNL. She did constantly hypoxic while in the ED and was placed on O2 via NC. CXR revealed interval widening of the mediastinum, admit for further evaluation of this is pending. Given syncopal episode, presence of UTI, and some hemodynamic instability at times (hypotension, slight tachycardia, hypoxia) patient is to be admitted for UTI with respective attention to additional topics as noted. 03/05: Long conversation with pt's and their daughter Tessa. Family reports that since 2020, pt has had limited mobility, confined to recliner, including when she slept. She had a commode near the recliner. Her was providing majority of her care. Over the past year or so, she has had more pro nounced decline including development of sacral wound. She also developed poor appetite and is not eating much. Discussed at length that wound healing requires adequate nutrition. Pt's daughter also noted that pt has family member already at [facility] and her granddaughter is working there. She was looking forward to going there. #Syncope/Sacral wound Presenting the same day as d/c from hospital for syncopal event at nursing facility following re-dressing of her sacral wound. Denies symptoms prior to, only having some pain in buttock at time of admission. H/o chronic UTIs. Sepsis criteria initially not met during ED course, however by time admission was in progress the patient did develop hypotension and elevated HR. Suspect possible early start of sepsis. Suspect syncope may be vasovagal vs related to infection vs other causes. - CBC w/o leukocytosis, H/H 11.6/36.9; PT/INR WNL; VBGs pH 7.42; CMP BUN 31, ratio 29.2, glucose 161 - CBC am - Troponin 2.6; lactate 1.1; Ca 10.6; procal 0.16 - EKG does not reveal acute pathologic issues - CXR with interval development of widening of the mediastinum - chest CTA neg - Head CT severe mucosal thickening of the paranasal sinuses with remodeling of bone concerning for acute on chronic sinusitis, no acute intracranial findings - Fall precautions - IVF LR @ 80 mL/hr - Acteminophen prn fever/pain - Zofran prn N/V - D/c po abx at this time - Zosyn IV - Wound care daily - Monitor on tele - will request neurology eval to further assess for any neurological causes of her symptoms #Hypoxia/Asthma No SOB or cough, was hypoxic in ED briefly at 88% on RA. Placed on NC. H/o asthma, on albuterol, symbicort, incruse ellipta daily. - CBC without leukocytosis; VBGs pH 7.42 - Continue inhalers - O2 prn via NC or adjust as necessary -- No O2 at baseline - wean as patient tolerates #T2DM H/o DMT2; On metformin at home. - Most recent A1C 01/2025 @ 6.7% - Hold home meds - SSI with target BSG range 110-140mg/dL, CF 25, carb ratio 10 - BSG ACHS - Adjust regimen as needed #Anemia - acute drop likely false, rpt Hgb more stable - monitor at this time, transfuse if Hgb < 7 #Poor appetite - property management specialist on board, recs appreciated #HLD- Atorvastatin - continue #Hypothyroidism- Levothyroxine - continue #GERD- Omeprazole - continue Dispo: pending clinical improvement VTE Prophylaxis: SCDs, if Hgb remain stable, initiate subq hep Admission and Anticipated Discharge Date Admission Date: March 04, 2025 Subjective Pt returned to hospital yesterday due to syncopal event and altered mental status Pt has increased sleepiness. Pt currently states that she is not eating because she is not hungry. She was sleeping during majority of the visit. She denied palpitations or dizziness prior to syncope. Review of Systems Review of Systems: Comprehensive ROS completed and is otherwise negative. Physical Exam Physical Exam: Gen: morbidly obese female, no acute distress, lying in bed comfortable, sleeping HEENT: NC/AT, MMM Lungs: nonlabored breathing, CTAB CVS: s1s2nl, RRR Abd: nl bowel sounds, soft, NT / ND : no ramirez Ext: no edema Skin: sacral wound Neuro: AAOx3 Psych: calm Results & Data Results & Data Vital Signs (Past 12 Hours) Vital Signs Temp Pulse Resp BP Pulse Ox O2 Del Method O2 Flow Rate 03/05/25 07:53 36.6 C 67 18 92/60 L 97 Nasal Cannula 2 03/05/25 03:41 36.4 C L 88 20 108/67 94 Room Air 03/05/25 00:28 Nasal Cannula 2 03/05/25 00:09 36.6 C 96 H 18 115/66 97 Nasal Cannula 2 03/04/25 23:05 99 H 20 103/68 99 Room Air 03/04/25 22:34 88 L Room Air, Nasal Cannula 03/04/25 22:33 102 H 20 99/65 L 100 Nasal Cannula 2 03/04/25 22:00 101 H 16 113/65 95 03/04/25 21:30 99 H 22 124/62 96 Room Air 03/04/25 21:03 107 H 20 116/88 95 03/04/25 20:40 112 H 22 110/81 96 Room Air PG Care Time/CCT Total # of Minutes Spent Total Time Spent with Patient: Total time spent is greater than 50% in coordination of care (as documented) at patient's floor/unit and/or counseling patient: Coding Level of Care Code 85799 SUB INP/OBS CARE 3/50MIN Diagnoses Syncope R55 UTI (urinary tract infection) N39.0 Sacral wound S31.000A Type 2 diabetes mellitus E11.9
[2025-03-05 08:41] LABS: Hematocrit (blood only) 31.6 % (37.0-47.0); Hemoglobin 9.9 g/dl (12.0-16.0)
[2025-03-05] MEDS: INSULIN ASPART PER UNIT CHARGE SC SCH (09:06)
[2025-03-05] MEDS: IPRATROPIUM BROMIDE NASAL SPRAY 0.03% 30 ML SCH (09:07)
[2025-03-05] MEDS: UMECLIDINIUM BROMIDE 62.5MCG/BLISTER 7 PUFFS/INHALER INH SCH (09:07)
[2025-03-05] MEDS: ASPIRIN 81 MG ECTAB PO SCH (09:07)
[2025-03-05] MEDS: FLUTICASONE/VILANTEROL 100/25MCG 14 PUFFS/INHALER INH SCH (09:08)
--- NOTE | 2025-03-05 11:59 | Electrocardiogram Report ---
Test Reason : Blood Pressure : */* mmHG Vent. Rate : 97 BPM Atrial Rate : 97 BPM P-R Int : 218 ms QRS Dur : 90 ms QT Int : 374 ms P-R-T Axes : 30 -18 -11 degrees QTcB Int : 474 ms Sinus rhythm with 1st degree A-V block Possible Lateral infarct (cited on or before 22-Feb-2025) Abnormal ECG When compared with ECG of 22-Feb-2025 17:16, Nonspecific T wave abnormality no longer evident in Anterior leads Confirmed by Vernon Sullivan ([id number]) on 03/05/2025 11:58:49 AM Referred By: REFERRED SELF Confirmed By: Vernon Sullivan
[2025-03-05] MEDS: ACETAMINOPHEN 325 MG TAB PO PRN (12:17)
[2025-03-05] MEDS: ATORVASTATIN 40 MG TAB PO SCH (21:18)
[2025-03-06 00:30] LABS: A calco-baum cmplx NotReported Not Detected (NotDetected); Bact fragilis Not Reported Not Detected (NotDetected); Blood Culture Id Panel See PCR Comment (NotDetected); C auris Not Reported Not Detected (NotDetected); Calbicans Not Reported Not Detected (NotDetected); Candida glabrata Not Reported Not Detected (NotDetected); Candida krusei Not Reported Not Detected (NotDetected); Cneoformans/gatti Not Reported Not Detected (NotDetected); Cparapsilosis Not Reported Not Detected (NotDetected); Ctropicalis Not Reported Not Detected (NotDetected); E cloacae compx Not Reported Not Detected (NotDetected); Efaecalis Not Reported Not Detected (NotDetected); Efaecium Not Reported Not Detected (NotDetected); Enterobacterales Not Reported Not Detected (NotDetected); Escherichia coli Not Reported Not Detected (NotDetected); H influenzae Not Reported Not Detected (NotDetected); K aerogenes Not Reported Not Detected (NotDetected); Koxytoca Not Reported Not Detected (NotDetected); Kpneumoniae grp Not Reported Not Detected (NotDetected); Lmonocyt Not Reported Not Detected (NotDetected); N meningitidis Not Reported Not Detected (NotDetected); P aeruginosa Not Reported Not Detected (NotDetected); Proteus spp Not Reported Not Detected (NotDetected); Salmonella spp Not Reported Not Detected (NotDetected); Staph lugdunensis Not Reported Not Detected (NotDetected); Staph spp. Not Reported DETECTED (NotDetected); Staphaureus Not Reported Not Detected (NotDetected); Staphepi Not Reported DETECTED (NotDetected); Staphylococcus spp. DETECTED (NotDetected); Stenmaltophilia Not Reported Not Detected (NotDetected); Strep agal(GrpB) Not Reported Not Detected (NotDetected); Strep pneum Not Reported Not Detected (NotDetected); Strep pyog (GrpA) Not Reported Not Detected (NotDetected); Strep spp Not Reported Not Detected (NotDetected)
[2025-03-06 00:38] LABS: mecAC Resistant Gene DETECTED (NotDetected)
[2025-03-06 00:39] LABS: Staphylococcus epidermidis DETECTED (NotDetected)
[2025-03-06] MEDS ORDERED: VANCOMYCIN CONSULT ACTIVE PRN (01:34)
[2025-03-06] MEDS: VANCOMYCIN HCL 2,750 MG in SODIUM CHLORIDE 0.9% 500 ML IV ONE (02:14)
[2025-03-06] MEDS: NYSTATIN POWDER 15GM BTL EXT PRN (05:53)
[2025-03-06 06:39] LABS: Hematocrit (blood only) 30.2 % (37.0-47.0); Hemoglobin 9.3 g/dl (12.0-16.0); Immature Granulocytes # (auto) 0.02 K/uL (0.01-0.20); Immature Granulocytes % (auto) 0.3 %; Mean Corpuscular Hemoglobin 29.6 pg (25.0-34.0); Mean Corpuscular Volume 96.2 fL (80.0-100.0); Platelet Count 288 K/uL (130-400); RDW Standard Deviation 65.0 fL (36.4-46.3); Red Blood Count 3.14 M/uL (4.20-5.40); White Blood Count 7.63 K/ul (4.8-10.8)
[2025-03-06 06:47] LABS: Anion Gap 7.0 (3-11); Calcium 9.6 mg/dl (8.6-10.3); Carbon Dioxide 27.0 mmol/L (21-32); Chloride 106.0 mmol/L (98-107); Magnesium 1.6 mg/dl (1.7-2.4); Potassium 4.3 mmol/L (3.5-5.1); Sodium 140.0 mmol/L (136-145)
[2025-03-06 06:53] LABS: Blood Urea Nitrogen 22.0 mg/dl (6-23); Creatinine Clr Calc Pharmacy 61.6 ml/min; Glucose 119.0 mg/dl (70-99(Fasting))
[2025-03-06] MEDS: MAGNESIUM OXIDE 400 MG TAB PO STA (09:22)
--- NOTE | 2025-03-06 09:24 | Neurology Consultation ---
Date of Consultation March 06, 2025 Assessment & Plan (1) Syncope: History of Present Illness Attending Physician: Jenelle Vasquez MD History of Present Illness S: pt known from neurology clinic for MS visit in the past. pt admitted for UTI, syncope and hypotension/hypoxia. pt doing well this morning. no new focal deficits. chart reviewed. admission HPI: 69-year-old female PMHx asthma, recurrent UTI, MS, known sacral wound, hypothyroidism, T2DM with most recent hospital admission 02/17/2025 until 03/04/2025 for sepsis with sacral wound who returns the day of discharge after syncopal episode per nursing staff at [facility]. Her evaluation in the ED is significant for urinalysis positive for UTI, however her CBC reveals no leukocytosis, and her lactate and procalcitonin are WNL. She did constantly hypoxic while in the ED and was placed on O2 via NC. CXR revealed interval widening of the mediastinum, admit for further evaluation of this is pending. Given syncopal episode, presence of UTI, and some hemodynamic instability at times (hypotension, slight tachycardia, hypoxia) patient is to be admitted for UTI with respective attention to additional topics as noted. Allergies Allergy/AdvReac Type Severity Reaction Status Date / Time Fish Containing Products Allergy Intermediate ITCHY RASH Verified 01/23/25 19:57 shellfish derived Allergy Intermediate ITCHY RASH Verified 01/23/25 19:57 montelukast [From Singulair] Allergy Unknown CAN'T Verified 01/23/25 19:57 REMEMBER codeine AdvReac Mild NAUSEATED Verified 01/23/25 19:57 Home Medications Medication Instructions Recorded Confirmed Type benazepril 40 mg tablet 0 mg PO QAM 06/25/21 03/04/25 History omeprazole 20 mg capsule,delayed 20 mg PO PM 06/25/21 03/04/25 History release aspirin 81 mg tablet,delayed 81 mg PO QAM #30 tabs 08/16/21 03/04/25 Rx release atorvastatin 40 mg tablet 40 mg PO HS 07/20/23 03/04/25 History docusate sodium 100 mg capsule 100 mg PO PM PRN Constipation 07/26/23 03/04/25 History turmeric 400 mg capsule 400 mg PO QAM 07/26/23 03/04/25 History albuterol sulfate 2.5 mg/3 mL 2.5 mg continuous nebulization 09/25/23 03/04/25 History (0.083 %) solution for nebulization DIRECTED PRN Shortness Of Breath Or Wheezing diclofenac potassium 50 mg tablet 50 mg PO TID PRN Pain 09/25/23 03/04/25 History vitamin B complex 1 tab PO DAILY 09/25/23 03/04/25 History Wheelchair (Powered) (Power #1 ea 11/05/23 03/04/25 Rx Wheelchair) multivitamin with minerals-folic 1 tab PO DAILY 12/01/23 03/04/25 History acid 80 mcg chewable tablet (Centrum Adult 50 Plus) nystatin 100,000 unit/gram topical 1 applic topical BID PRN fungal 12/01/23 03/04/25 History powder (Klayesta) rash budesonide-formoterol HFA 160 2 puff inhalation BID #10.2 grams 12/28/23 03/04/25 Rx mcg-4.5 mcg/actuation aerosol inhaler inhalational spacing device #1 ea 12/28/23 03/04/25 Rx (Aerochamber MV spacer) albuterol sulfate 90 mcg/actuation 2 puff inhalation Q4H PRN 01/14/25 03/04/25 History aerosol inhaler Shortness Of Breath Or Wheezing ipratropium bromide 21 mcg (0.03 2 spray intranasal BID 01/14/25 03/04/25 History %) nasal spray bumetanide 0.5 mg tablet 0 mg PO AMPM 01/21/25 03/04/25 History levothyroxine 50 mcg tablet 50 mcg PO DAILYBB #30 tabs 01/26/25 03/04/25 Rx (Synthroid) umeclidinium 62.5 mcg/actuation 1 inh inhalation DAILY #30 ea 01/26/25 03/04/25 Rx blister powder for inhalation (Incruse Ellipta) metformin 500 mg tablet 1,000 mg PO BID 02/17/25 03/04/25 History amoxicillin 875 mg-potassium 1 tab PO BIDM #6 tabs 03/04/25 03/04/25 Rx clavulanate 125 mg tablet doxycycline hyclate 100 mg capsule 100 mg PO BID #6 caps 03/04/25 03/04/25 Rx Patient History Medical History Elevated serum creatinine Hypoxia Respiratory difficulty Severe persistent allergic asthma Asthma exacerbation Morbid obesity Hypothyroidism Hypertension Hypomagnesemia Hypomagnesemia Hypothermia Hypomagnesemia Dyspnea Left-sided weakness DUNCAN (acute kidney injury) Brain TIA Acute respiratory failure with hypoxia Osteoarthritis of knees, bilateral Sinusitis, acute Morbid obesity with BMI of 50.0-59.9, adult Tachy-rowena syndrome GERD (gastroesophageal reflux disease) Hypothyroidism Pancreatitis Thrombocytopenia Peripheral edema Septic shock Hypomagnesemia Fungal dermatitis Asthma Hypertension Diabetes Influenza A Pneumonia Multiple sclerosis Surgical History H/O tubal ligation H/O sinus surgery History of arthroscopic knee surgery Hx of tonsillectomy H/O: hysterectomy No pertinent past surgical history Family History Other Family history non-contributory Social History Smoking Status: Never smoker Second Hand Exposure: Yes; Do You Dip or Chew Tobacco: No; Hx Alcohol Use: No Hx Substance Use: No Preferred Language: Tunisian Communication Ability: Unable Extruder Operator Horizontal Required: No Beliefs That Will Affect Care: None marital status: Current Living Situation: Personal Care Facility Current Living Situation Comment: [facility] How many Children do You have: 2 Other Information That Helps Us Care for You: No Feels Safe at Home: Yes Safety Concerns: Feels Safe At This Time Diet: gluten free during the past year weight has: decreased > 10 lbs Assistive Devices: Wheelchair Exam (Neuro) Physical Exam: HEENT: normocephalic grossly Neuro: Mental: AOx4, fluent speech, normal comprehension, no apraxia, no L/R confusion, no neglect CN: PERRL, Full EOM, symmetric face, midline T/U/P, grossly full ROM neck Motor: No abnormal movements, moves all limbs well (pt has baseline b/l lower weakness from MS). Coord: intact upper limbs. Impression: 69 yo female with syncopal event likely due to Hypotension and UTI. Not suggestive of neurologic. Recommendations: avoid hypotension, dehydration continue tx for UTI consider emt intermediate cardiac monitoring as 90% of all syncopal events are cardiogenic in nature not much to offer at this point from neurology further MS management discussion can be done as outpt as routine neurology follow up. will sign off. Chart reviewed I have spent more than 50% educating patient about potential diagnosis and neurological evaluation and coordinating care with patient's treatment team. Total time spent (including chart review and coordination of care): 45 min (this includes chart review). Results & Data Vital Signs (Past 12 Hours) Vital Signs Temp Pulse Pulse Resp BP Pulse Ox O2 Del Method 03/06/25 08:19 36.5 C 74 16 124/60 97 Room Air 03/06/25 08:00 Room Air 03/06/25 03:17 36.3 C L 80 18 110/73 90 Room Air 03/05/25 22:48 36.5 C 74 18 90/59 L 91 Room Air 03/05/25 22:46 90 PG Care Time/CCT Total # of Minutes Spent Total Time Spent with Patient: Total time spent is greater than 50% in coordination of care (as documented) at patient's floor/unit and/or counseling patient: Coding Level of Care Code 58915 IN/OBS CONSULT LVL 3,45M Diagnoses Syncope R55 Syncope type: unspecified (1) Syncope Syncope type: unspecified Qualified Code(s): R55 - Syncope and collapse
--- NOTE | 2025-03-06 10:44 | Pharmacy Report ---
Pharmacy PK ABX Note - Date of Service March 06, 2025 - Assessment and Plan Assessment 69 year old F receiving Vancomycin and Zosyn for treatment of sacral wound and possible bacteremia. * Day #2 of antimicrobial therapy. * Afebrile. No white count. SCr stable. Lactate was normal. Procal slightly above normal. * Blood cultures growing MRSE in 1/4 bottles, likely contaminated. Provider okay with discontinuing vancomycin at this point. Should blood cultures start to grow MRSE in more bottles, will resume vanc. Plan Vancomycin * Loading dose: 2750 mg IV x 1 * Discontinue vancomycin. Continue zosyn. Pharmacy will continue to follow and will adjust dose/frequency as necessary. Thank you. Pharmacy has transitioned to AUC monitoring for vancomycin. AUC/DEVIN is the preferred PK/PD target and is associated with decreased risk of nephrotoxicity compared to traditional trough targets.
--- NOTE | 2025-03-06 19:16 | Hospitalist Progress Note ---
Date of Service March 06, 2025 Assessment & Plan (1) Syncope: (2) UTI (urinary tract infection): (3) Sacral wound: (4) Type 2 diabetes mellitus: Plan 69-year-old female PMHx asthma, recurrent UTI, MS, known sacral wound, hypothyroidism, T2DM with most recent hospital admission 02/17/2025 until 03/04/2025 for sepsis with sacral wound who returns the day of discharge after syncopal episode per nursing staff at [facility]. Her evaluation in the ED is significant for urinalysis positive for UTI, however her CBC reveals no leukocytosis, and her lactate and procalcitonin are WNL. She did constantly hypoxic while in the ED and was placed on O2 via NC. CXR revealed interval widening of the mediastinum, admit for further evaluation of this is pending. Given syncopal episode, presence of UTI, and some hemodynamic instability at times (hypotension, slight tachycardia, hypoxia) patient is to be admitted for UTI with respective attention to additional topics as noted. 03/05: Long conversation with pt's and their daughter Tessa. Family reports that since 2020, pt has had limited mobility, confined to recliner, including when she slept. She had a commode near the recliner. Her was providing majority of her care. Over the past year or so, she has had more pro nounced decline including development of sacral wound. She also developed poor appetite and is not eating much. Discussed at length that wound healing requires adequate nutrition. Pt's daughter also noted that pt has family member already at [facility] and her granddaughter is working there. She was looking forward to going there. #Syncope/Sacral wound Presenting the same day as d/c from hospital for syncopal event at nursing facility following re-dressing of her sacral wound. Denies symptoms prior to, only having some pain in buttock at time of admission. H/o chronic UTIs. Sepsis criteria initially not met during ED course, however by time admission was in progress the patient did develop hypotension and elevated HR. Suspect possible early start of sepsis. Suspect syncope may be vasovagal vs related to infection vs other causes. - CBC w/o leukocytosis, H/H 11.6/36.9; PT/INR WNL; VBGs pH 7.42; CMP BUN 31, ratio 29.2, glucose 161 - CBC am - Troponin 2.6; lactate 1.1; Ca 10.6; procal 0.16 - EKG does not reveal acute pathologic issues - CXR with interval development of widening of the mediastinum - chest CTA neg - Head CT severe mucosal thickening of the paranasal sinuses with remodeling of bone concerning for acute on chronic sinusitis, no acute intracranial findings - Fall precautions - IVF LR @ 80 mL/hr - Acteminophen prn fever/pain - Zofran prn N/V - D/c po abx at this time - Zosyn IV - Wound care daily - Monitor on tele - will request neurology eval to further assess for any neurological causes of her symptoms #Hypoxia/Asthma No SOB or cough, was hypoxic in ED briefly at 88% on RA. Placed on NC. H/o asthma, on albuterol, symbicort, incruse ellipta daily. - CBC without leukocytosis; VBGs pH 7.42 - Continue inhalers - O2 prn via NC or adjust as necessary -- No O2 at baseline - wean as patient tolerates #T2DM H/o DMT2; On metformin at home. - Most recent A1C 01/2025 @ 6.7% - Hold home meds - SSI with target BSG range 110-140mg/dL, CF 25, carb ratio 10 - BSG ACHS - Adjust regimen as needed #Anemia - acute drop likely false, rpt Hgb more stable - monitor at this time, transfuse if Hgb < 7 #Poor appetite - court messenger on board, recs appreciated #HLD- Atorvastatin - continue #Hypothyroidism- Levothyroxine - continue #GERD- Omeprazole - continue Dispo: pending clinical improvement VTE Prophylaxis: SCDs, subq heparin Admission and Anticipated Discharge Date Admission Date: March 04, 2025 Subjective Completely different to yesterday Pt is awake and alert, peppy. Conversational Not offering any complaints Review of Systems Review of Systems: Comprehensive ROS completed and is otherwise negative. Physical Exam Physical Exam: Gen: morbidly obese female, no acute distress, lying in bed comfortable HEENT: NC/AT, MMM Lungs: nonlabored breathing, CTAB CVS: s1s2nl, RRR Abd: nl bowel sounds, soft, NT / ND : no ramirez Ext: no edema Skin: sacral wound Neuro: AAOx3 Psych: calm Results & Data Results & Data Vital Signs (Past 12 Hours) Vital Signs Temp Pulse Resp BP Pulse Ox O2 Del Method 03/06/25 15:30 36.8 C 75 20 118/62 95 Room Air 03/06/25 11:00 36.7 C 84 18 93/61 L 92 Room Air 03/06/25 08:19 36.5 C 74 16 124/60 97 Room Air 03/06/25 08:00 Room Air PG Care Time/CCT Total # of Minutes Spent Total Time Spent with Patient: Total time spent is greater than 50% in coordination of care (as documented) at patient's floor/unit and/or counseling patient: Coding Level of Care Code 52151 SUB INP/OBS CARE 2/35MIN Diagnoses Syncope R55 UTI (urinary tract infection) N39.0 Sacral wound S31.000A Type 2 diabetes mellitus E11.9
[2025-03-06] MEDS: HEPARIN SOD 5,000 UNIT/0.5 ML VIAL SQ SCH (22:00)
--- NOTE | 2025-03-07 17:22 | Hospitalist Progress Note ---
Date of Service March 07, 2025 Assessment & Plan (1) Syncope: (2) UTI (urinary tract infection): (3) Sacral wound: (4) Type 2 diabetes mellitus: Plan 69-year-old female PMHx asthma, recurrent UTI, MS, known sacral wound, hypothyroidism, T2DM with most recent hospital admission 02/17/2025 until 03/04/2025 for sepsis with sacral wound who returns the day of discharge after syncopal episode per nursing staff at [facility]. Her evaluation in the ED is significant for urinalysis positive for UTI, however her CBC reveals no leukocytosis, and her lactate and procalcitonin are WNL. She did constantly hypoxic while in the ED and was placed on O2 via NC. CXR revealed interval widening of the mediastinum, admit for further evaluation of this is pending. Given syncopal episode, presence of UTI, and some hemodynamic instability at times (hypotension, slight tachycardia, hypoxia) patient is to be admitted for UTI with respective attention to additional topics as noted. 03/05: Long conversation with pt's and their daughter Tessa. Family reports that since 2020, pt has had limited mobility, confined to recliner, including when she slept. She had a commode near the recliner. Her was providing majority of her care. Over the past year or so, she has had more pro nounced decline including development of sacral wound. She also developed poor appetite and is not eating much. Discussed at length that wound healing requires adequate nutrition. Pt's daughter also noted that pt has family member already at [facility] and her granddaughter is working there. She was looking forward to going there. #Syncope/Sacral wound Presenting the same day as d/c from hospital for syncopal event at nursing facility following re-dressing of her sacral wound. Denies symptoms prior to, only having some pain in buttock at time of admission. H/o chronic UTIs. Sepsis criteria initially not met during ED course, however by time admission was in progress the patient did develop hypotension and elevated HR. Suspect possible early start of sepsis. Suspect syncope may be vasovagal vs related to infection vs other causes. - CBC w/o leukocytosis, H/H 11.6/36.9; PT/INR WNL; VBGs pH 7.42; CMP BUN 31, ratio 29.2, glucose 161 - CBC am - Troponin 2.6; lactate 1.1; Ca 10.6; procal 0.16 - EKG does not reveal acute pathologic issues - CXR with interval development of widening of the mediastinum - chest CTA neg - Head CT severe mucosal thickening of the paranasal sinuses with remodeling of bone concerning for acute on chronic sinusitis, no acute intracranial findings - Fall precautions - IVF LR @ 80 mL/hr - Acteminophen prn fever/pain - Zofran prn N/V - d/c Zosyn, pt completed abx course (previously ID recs treating through 03/06 to complete 2 week course) - Wound care daily - Monitor on tele - neuro recs appreciated, suspect due to acute illness rather than neurologic component #Hypoxia/Asthma No SOB or cough, was hypoxic in ED briefly at 88% on RA. Placed on NC. H/o asthma, on albuterol, symbicort, incruse ellipta daily. - CBC without leukocytosis; VBGs pH 7.42 - Continue inhalers - O2 prn via NC or adjust as necessary -- No O2 at baseline - wean as patient tolerates #T2DM H/o DMT2; On metformin at home. - Most recent A1C 01/2025 @ 6.7% - Hold home meds - SSI with target BSG range 110-140mg/dL, CF 25, carb ratio 10 - BSG ACHS - Adjust regimen as needed #Anemia - acute drop likely false, rpt Hgb more stable - monitor at this time, transfuse if Hgb < 7 #Poor appetite - lead android developer on board, recs appreciated #HLD- Atorvastatin - continue #Hypothyroidism- Levothyroxine - continue #GERD- Omeprazole - continue Dispo: pending placement , PT / OT eval re-ordered, CM aware VTE Prophylaxis: SCDs, subq heparin Admission and Anticipated Discharge Date Admission Date: March 04, 2025 Subjective No acute events overnight Remains the same as yesterday Not offering any complaints Review of Systems Review of Systems: Comprehensive ROS completed and is otherwise negative. Physical Exam Physical Exam: Gen: morbidly obese female, no acute distress, lying in bed comfortable HEENT: NC/AT, MMM Lungs: nonlabored breathing, CTAB CVS: s1s2nl, RRR Abd: nl bowel sounds, soft, NT / ND : no ramirez Ext: no edema Skin: sacral wound Neuro: AAOx3 Psych: calm Results & Data Results & Data Vital Signs (Past 12 Hours) Vital Signs Temp Pulse Pulse Resp BP Pulse Ox O2 Del Method 03/07/25 16:00 78 03/07/25 15:41 36.2 C L 67 18 105/67 94 Room Air 03/07/25 10:44 36.3 C L 78 18 104/69 92 Room Air 03/07/25 08:00 72 03/07/25 08:00 Room Air 03/07/25 08:00 36.4 C L 83 18 107/90 90 Room Air PG Care Time/CCT Total # of Minutes Spent Total Time Spent with Patient: Total time spent is greater than 50% in coordination of care (as documented) at patient's floor/unit and/or counseling patient: Coding Level of Care Code 07103 SUB INP/OBS CARE 2/35MIN Diagnoses Syncope R55 UTI (urinary tract infection) N39.0 Sacral wound S31.000A Type 2 diabetes mellitus E11.9
[2025-03-08 06:29] LABS: Hematocrit (blood only) 31.3 % (37.0-47.0); Hemoglobin 9.9 g/dl (12.0-16.0); Immature Granulocytes # (auto) 0.03 K/uL (0.01-0.20); Immature Granulocytes % (auto) 0.4 %; Mean Corpuscular Hemoglobin 29.7 pg (25.0-34.0); Mean Corpuscular Volume 94.0 fL (80.0-100.0); Platelet Count 328 K/uL (130-400); RDW Standard Deviation 60.7 fL (36.4-46.3); Red Blood Count 3.33 M/uL (4.20-5.40); White Blood Count 7.90 K/ul (4.8-10.8)
[2025-03-08 07:02] LABS: Anion Gap 6.0 (3-11); Blood Urea Nitrogen 13.0 mg/dl (6-23); Calcium 10.0 mg/dl (8.6-10.3); Carbon Dioxide 28.0 mmol/L (21-32); Chloride 107.0 mmol/L (98-107); Creatinine Clr Calc Pharmacy 67.4 ml/min; Glucose 115.0 mg/dl (70-99(Fasting)); Magnesium 1.8 mg/dl (1.7-2.4); Potassium 4.5 mmol/L (3.5-5.1); Sodium 141.0 mmol/L (136-145)
--- NOTE | 2025-03-08 12:16 | Hospitalist Progress Note ---
Date of Service March 08, 2025 Assessment & Plan (1) Syncope: (2) UTI (urinary tract infection): (3) Sacral wound: (4) Type 2 diabetes mellitus: Plan 69-year-old female PMHx asthma, recurrent UTI, MS, known sacral wound, hypothyroidism, T2DM with most recent hospital admission 02/17/2025 until 03/04/2025 for sepsis with sacral wound who returns the day of discharge after syncopal episode per nursing staff at [facility]. Her evaluation in the ED is significant for urinalysis positive for UTI, however her CBC reveals no leukocytosis, and her lactate and procalcitonin are WNL. She did constantly hypoxic while in the ED and was placed on O2 via NC. CXR revealed interval widening of the mediastinum, admit for further evaluation of this is pending. Given syncopal episode, presence of UTI, and some hemodynamic instability at times (hypotension, slight tachycardia, hypoxia) patient is to be admitted for UTI with respective attention to additional topics as noted. 03/05: Long conversation with pt's and their daughter Tessa. Family reports that since 2020, pt has had limited mobility, confined to recliner, including when she slept. She had a commode near the recliner. Her was providing majority of her care. Over the past year or so, she has had more pro nounced decline including development of sacral wound. She also developed poor appetite and is not eating much. Discussed at length that wound healing requires adequate nutrition. Pt's daughter also noted that pt has family member already at [facility] and her granddaughter is working there. She was looking forward to going there. #Syncope/Sacral wound Presenting the same day as d/c from hospital for syncopal event at nursing facility following re-dressing of her sacral wound. Denies symptoms prior to, only having some pain in buttock at time of admission. H/o chronic UTIs. Sepsis criteria initially not met during ED course, however by time admission was in progress the patient did develop hypotension and elevated HR. Suspect possible early start of sepsis. Suspect syncope may be vasovagal vs related to infection vs other causes. - CBC w/o leukocytosis, H/H 11.6/36.9; PT/INR WNL; VBGs pH 7.42; CMP BUN 31, ratio 29.2, glucose 161 - CBC am - Troponin 2.6; lactate 1.1; Ca 10.6; procal 0.16 - EKG does not reveal acute pathologic issues - CXR with interval development of widening of the mediastinum - chest CTA neg - Head CT severe mucosal thickening of the paranasal sinuses with remodeling of bone concerning for acute on chronic sinusitis, no acute intracranial findings - Fall precautions - IVF LR @ 80 mL/hr - Acteminophen prn fever/pain - Zofran prn N/V - d/c Zosyn, pt completed abx course (previously ID recs treating through 03/06 to complete 2 week course) - Wound care daily - Monitor on tele - neuro recs appreciated, suspect due to acute illness rather than neurologic component #Hypoxia/Asthma No SOB or cough, was hypoxic in ED briefly at 88% on RA. Placed on NC. H/o asthma, on albuterol, symbicort, incruse ellipta daily. - CBC without leukocytosis; VBGs pH 7.42 - Continue inhalers - O2 prn via NC or adjust as necessary -- No O2 at baseline - wean as patient tolerates #T2DM H/o DMT2; On metformin at home. - Most recent A1C 01/2025 @ 6.7% - Hold home meds - SSI with target BSG range 110-140mg/dL, CF 25, carb ratio 10 - BSG ACHS - Adjust regimen as needed #Anemia - acute drop likely false, rpt Hgb more stable - monitor at this time, transfuse if Hgb < 7 #Poor appetite - electrician's assistant on board, recs appreciated #HLD- Atorvastatin - continue #Hypothyroidism- Levothyroxine - continue #GERD- Omeprazole - continue Dispo: pending placement , PT / OT eval re-ordered, CM aware, awaiting insurance auth VTE Prophylaxis: SCDs, subq heparin Admission and Anticipated Discharge Date Admission Date: March 04, 2025 Subjective No acute events overnight Remains the same as yesterday, less peppy Not offering any complaints Review of Systems Review of Systems: Comprehensive ROS completed and is otherwise negative. Physical Exam Physical Exam: Gen: morbidly obese female, no acute distress, lying in bed comfortable HEENT: NC/AT, MMM Lungs: nonlabored breathing, CTAB CVS: s1s2nl, RRR Abd: nl bowel sounds, soft, NT / ND : no ramirez Ext: no edema Skin: sacral wound Neuro: AAOx3 Psych: calm Results & Data Results & Data Vital Signs (Past 12 Hours) Vital Signs Temp Pulse Pulse Resp BP Pulse Ox O2 Del Method 03/08/25 10:57 36.4 C L 78 19 95/65 L 94 Room Air 03/08/25 08:09 36.4 C L 85 20 109/71 92 Room Air 03/08/25 08:00 Room Air 03/08/25 08:00 82 03/08/25 02:53 36.4 C L 75 18 117/76 90 Room Air PG Care Time/CCT Total # of Minutes Spent Total Time Spent with Patient: Total time spent is greater than 50% in coordination of care (as documented) at patient's floor/unit and/or counseling patient: Coding Level of Care Code 20936 SUB INP/OBS CARE 08/07MIN Diagnoses Syncope R55 UTI (urinary tract infection) N39.0 Sacral wound S31.000A Type 2 diabetes mellitus E11.9
--- NOTE | 2025-03-09 06:21 | Electrocardiogram Report ---
Test Reason : Blood Pressure : */* mmHG Vent. Rate : 115 BPM Atrial Rate : 115 BPM P-R Int : 196 ms QRS Dur : 90 ms QT Int : 310 ms P-R-T Axes : 45 -23 4 degrees QTcB Int : 428 ms Sinus tachycardia Possible Anterolateral infarct (cited on or before 22-Feb-2025) Abnormal ECG When compared with ECG of 22-Feb-2025 17:16, Nonspecific T wave abnormality no longer evident in Anterior leads Confirmed by Jeff Read ([id number] on 03/09/2025 6:21:33 AM Referred By: REFERRED SELF Confirmed By: Jeff Read
[2025-03-09 07:01] VITALS: RESP 17; TEMP 97.3; O2SAT 91
[2025-03-09 08:12] LABS: Hematocrit (blood only) 36.1 % (37.0-47.0); Hemoglobin 11.3 g/dl (12.0-16.0); Immature Granulocytes # (auto) 0.03 K/uL (0.01-0.20); Immature Granulocytes % (auto) 0.3 %; Mean Corpuscular Hemoglobin 29.6 pg (25.0-34.0); Mean Corpuscular Volume 94.5 fL (80.0-100.0); Platelet Count 372 K/uL (130-400); RDW Standard Deviation 62.1 fL (36.4-46.3); Red Blood Count 3.82 M/uL (4.20-5.40); White Blood Count 10.17 K/ul (4.8-10.8)
[2025-03-09 08:30] LABS: Anion Gap 10.0 (3-11); Blood Urea Nitrogen 17.0 mg/dl (6-23); Calcium 10.5 mg/dl (8.6-10.3); Carbon Dioxide 25.0 mmol/L (21-32); Chloride 107.0 mmol/L (98-107); Creatinine Clr Calc Pharmacy 62.5 ml/min; Glucose 155.0 mg/dl (70-99(Fasting)); Potassium 3.8 mmol/L (3.5-5.1); Sodium 142.0 mmol/L (136-145)
--- NOTE | 2025-03-09 12:15 | Discharge Summary ---
Date of Service March 09, 2025 Admission HPI Per Admitting Provider 69-year-old female PMHx asthma, recurrent UTI, MS, known sacral wound, hypothyroidism, T2DM with most recent hospital admission 02/17/2025 until 03/04/2025 for sepsis with sacral wound who returns the day of discharge after syncopal episode per nursing staff at [facility]. Patient states her only complaint at present and she is "pain in my butt". She reports on multiple occasions that she does not want to be in the hospital and wants to see her daughter, Dianna. She states that she was told she passed out earlier in the day. She does not recall much of the event and is rather limited in providing history. She denies any chest pain, dizziness, lightheadedness, or nausea. Does not believe that she hit her head. She is denying chest pain, SOB, palpitations, abdominal pain, N/V/D/C, numbness/tingling, fever/chills, URI symptoms, weakness, or falls. ED evaluation reveals CBC without leukocytosis, H&H 8.6/36.9; PT/INR WNL; urine shows pH 7.39; sodium 131, troponin 0.1 glucose 160; lactate 1.1; calcium 10.6; troponin 2.6, procalcitonin 0.16; UA significant for infection; head CT severe mucosal thickening of the paranasal sinuses with remodeling of the bone concerning for acute on chronic sinusitis but no acute intracranial findings; CXR pending official read.; Provided with 1 LSS, Zosyn 4.5 g IV, morphine 4 mg IV, and Zofran 4 mg IV in ED. Please see Dr. Butterfield's attestation for adjustments/additions to treatment plan. Admission Exam Per Admitting Provider General: No acute distress, obese Skin: Warm and dry Head: Normocephalic, atraumatic Eyes: PERRL, conjunctivae clear, sclera non-icteric ENT: External ear and ear canal without swelling; nose atraumatic; good dentition, tongue normal appearance, pharynx normal Neck: Supple, no LAD Cardio: RRR, no M/G/R, S1 and S2 normal Resp: Wearing O2 via NC (none at baseline); No respiratory distress, Lungs CTA in all lobes bilaterally, no wheezes, rales, or rhonchi Abdomen: Soft, symmetric, nontender; No masses or hepatosplenomegaly; Bowel sounds normoactive : Urinary catheter in place, draining minimal amounts of clear yellow urine in bag MSK: No deformities; pulses palpable and equal; no edema. Neuro: Awake, alert; Sensation intact bilaterally; CN grossly intact Psych: Tearful, "I do not want to be here again."; Location "[facility]", year "2024", president "Krystle" Principal Diagnosis UTI/syncope Discharge Exam Constitutional WD/WN, vitals as above Respiratory normal respiratory effort, lungs clear to auscultation Cardiovascular RRR, no murmur, no edema Gastrointestinal (Abdomen) normal bowel sounds, soft, nontender, no hepatosplenomegaly Musculoskeletal Head/Neck/Chest: normocephalic and head atraumatic Extremities: extremities normal to inspection Skin no rashes, warm and dry Neurologic no focal neurological deficits Psychiatric A+Ox3, euthymic affect Discharge Data Allergies Allergy/AdvReac Type Severity Reaction Status Date / Time Fish Containing Products Allergy Intermediate ITCHY RASH Verified 01/23/25 19:57 shellfish derived Allergy Intermediate ITCHY RASH Verified 01/23/25 19:57 montelukast [From Singulair] Allergy Unknown CAN'T Verified 01/23/25 19:57 REMEMBER codeine AdvReac Mild NAUSEATED Verified 01/23/25 19:57 Consultations 03/04/25 22:35 ED Decision to Admit Stat 03/05/25 16:26 Consult Neurology Routine Ordered Studies 03/04/25 19:47 CT head/brain wo con Stat 03/04/25 23:12 CT angio chest dissec wo/w con Stat Hospital Course (1) Syncope: (2) UTI (urinary tract infection): (3) Sacral wound: (4) Type 2 diabetes mellitus: Plan 69-year-old female PMHx asthma, recurrent UTI, MS, known sacral wound, hypothyroidism, T2DM with most recent hospital admission 02/17/2025 until 03/04/2025 for sepsis with sacral wound who returns the day of discharge after syncopal episode per nursing staff at [facility]. Her evaluation in the ED is significant for urinalysis positive for UTI, however her CBC reveals no leukocytosis, and her lactate and procalcitonin are WNL. She did constantly hypoxic while in the ED and was placed on O2 via NC. CXR revealed interval widening of the mediastinum, admit for further evaluation of this is pending. Given syncopal episode, presence of UTI, and some hemodynamic instability at times (hypotension, slight tachycardia, hypoxia) patient is to be admitted for UTI with respective attention to additional topics as noted. 03/05: Long conversation with pt's and their daughter Tessa. Family reports that since 2020, pt has had limited mobility, confined to recliner, including when she slept. She had a commode near the recliner. Her was providing majority of her care. Over the past year or so, she has had more pronounced decline including development of sacral wound. She also developed poor appetite and is not eating much. Discussed at length that wound healing requires adequate nutrition. Pt's daughter also noted that pt has family member already at [facility] and her granddaughter is working there. She was looking forward to going there. #Syncope/Sacral wound Presenting the same day as d/c from hospital for syncopal event at nursing facility following re-dressing of her sacral wound. Denies symptoms prior to, only having some pain in buttock at time of admission. H/o chronic UTIs. Sepsis criteria initially not met during ED course, however by time admission was in progress the patient did develop hypotension and elevated HR. Suspect possible e martina start of sepsis. Suspect syncope may be vasovagal vs related to infection vs other causes. - CBC this morning remains stable and without leukocytosis. H&H 11.3 & 36%. BMP nonactionable. - EKG on admission without acute pathologic issues. Telemetry monitoring during admission without actionable event. - CXR also completed on admission with interval development of widening mediastinum however chest CTA negative. - Head CT severe mucosal thickening of the paranasal sinuses with remodeling of bone concerning for acute on chronic sinusitis, no acute intracranial findings - During admission, pain management with acetaminophen. - Abx course with Zosyn has been completed. Previous doxycycline and augmentin do not need to be continued on discharge. - Continue daily wound care. #Hypoxia/Asthma No SOB or cough, was hypoxic in ED briefly at 88% on RA. Placed on NC. H/o asthma, on albuterol, symbicort, incruse ellipta daily. - patient hemodynamically stable this morning. Saturating at 91% on room air. Alert and responding appropriately this morning. No increased work of breathing, accessory muscle usage. Speaking in full complete sentences. - continue inhalers on discharge. Patient is not on O2 at baseline and otherwise O2 sats are wnl. #T2DM H/o DMT2; On metformin at home. - patient in SSI during admission with target BSG range 110-140mg/dL, CF 25, carb ratio 10 - can continue home metformin on d/c #Anemia - acute drop likely false, rpt Hgb more stable ; patient hemodynamically stable. #Poor appetite - triage register nurse on board, recs appreciated #HLD- Atorvastatin - continue #Hypothyroidism- Levothyroxine - continue #GERD- Omeprazole - continue Dispo: pending placement , PT / OT eval re-ordered, CM aware, awaiting insurance auth VTE Prophylaxis: SCDs, subq heparin Total Time Total Time Spent Total Time Spent (In Minutes): <30 Total Time Includes: Examination of the Patient, Discharge Planning and Medication Reconciliation Discharge Plan Discharge Items Patient Disposition: Transfer [facility] Reason For Visit: UTI, SYNCOPE Discharge Diagnosis: syncope/UTI Condition on Discharge: Fair Activity: Per Instructions section Non-emergency contact: Primary Care Provider Call non-emergency contact if: you have any medication questions Follow-up/Referrals: Rhona Canales [Primary Care Provider] - Diet: Regular Addtl Attending Provider Instructions: You were admitted to [facility] for evaluation of UTI and syncope. Your EKG and imagin g completed during admission were negative for acute pathology. You were on antibiotics for your UTI and your course has been completed, therefore you will not need to continue on discharge. (1) Syncope: (2) UTI (urinary tract infection): (3) Sacral wound: (4) Type 2 diabetes mellitus: Plan 69-year-old female PMHx asthma, recurrent UTI, MS, known sacral wound, hypo thyroidism, T2DM with most recent hospital admission 02/17/2025 until 03/04/2025 for sepsis with sacral wound who returns the day of discharge after syncopal episode per nursing staff at [facility]. Her evaluation in the ED is significant for urinalysis positive for UTI, however her CBC reveals no leukocytosis, and her lactate and procalcitonin are WNL. She did constantly hypoxic while in the ED and was placed on O2 via NC. CXR revealed interval widening of the mediastinum, admit for further evaluation of this is pending. Given syncopal episode, presence of UTI, and some hemodynamic instability at times (hypotension, slight tachycardia, hypoxia) patient is to be admitted for UTI with respective attention to additional topics as noted. 03/05: Long conversation with pt's and their daughter Tessa. Family reports that since 2020, pt has had limited mobility, confined to recliner, including when she slept. She had a commode near the recliner. Her was providing majority of her care. Over the past year or so, she has had more pronounced decline including development of sacral wound. She also developed poor appetite and is not eating much. Discussed at length that wound healing requires adequate nutrition. Pt's daughter also noted that pt has [facility] member already at [facility] and her granddaughter is working there. She was looking forward to going there. #Syncope/Sacral wound Presenting the same day as d/c from hospital for syncopal event at nursing facility following re-dressing of her sacral wound. Denies symptoms prior to, only having some pain in buttock at time of admission. H/o chronic UTIs. Sepsis criteria initially not met during ED course, however by time admission was in progress the patient did develop hypotension and elevated HR. Suspect possible early start of sepsis. Suspect syncope may be vasovagal vs related to infection vs other causes. - CBC this morning remains stable and without leukocytosis. H&H 11.3 & 36%. BMP nonactionable. - EKG on admission without acute pathologic issues. Telemetry monitoring during admission without actionable event. - CXR also completed on admission with interval development of widening mediastinum however chest CTA negative. - Head CT severe mucosal thickening of the paranasal sinuses with remodeling of bone concerning for acute on chronic sinusitis, no acute intracranial findings - During admission, pain management with acetaminophen. - Abx course with Zosyn has been completed. Previous doxycycline and augmentin do not need to be continued on discharge. - Continue daily wound care. #Hypoxia/Asthma No SOB or cough, was hypoxic in ED briefly at 88% on RA. Placed on NC. H/o asthma, on albuterol, symbicort, incruse ellipta daily. - patient hemodynamically stable this morning. Saturating at 91% on room air. Alert and responding appropriately this morning. No increased work of breathing, accessory muscle usage. Speaking in full complete sentences. - continue inhalers on discharge. Patient is not on O2 at baseline and otherwise O2 sats are wnl. #T2DM H/o DMT2; On metformin at home. - patient in SSI during admission with target BSG range 110-140mg/dL, CF 25, carb ratio 10 - can continue home metformin on d/c #Anemia - acute drop likely false, rpt Hgb more stable ; patient hemodynamically stable. #Poor appetite - triage register nurse on board, recs appreciated #HLD- Atorvastatin - continue #Hypothyroidism- Levothyroxine - continue #GERD- Omeprazole - continue Dispo: pending placement , PT / OT eval re-ordered, CM aware, awaiting insurance auth VTE Prophylaxis: SCDs, subq heparin Pending Studies at Discharge: No Stand-Alone Forms: My [facility] [employer] Skilled Items Patient informed of condition?: Yes DNR: No Discharge Level of Care: Skilled Communicable Disease: No Discharge Prognosis: Stable Lines: None Urinary Catheter: No Medications and DC Order Prescriptions: Continued (DME) Power Wheelchair Device See Rx Instructions .Route Qty: 1 0RF Rx Instructions: As directed budesonide-formoterol 160-4.5 mcg/actuation HFA aerosol inhaler 2 puff inhalation BID Qty: 10.2 2RF (DME) Aerochamber MV Spacer See Rx Instructions .ROUTE .MEDSUPPLY Qty: 1 0RF Rx Instructions: As directed omeprazole 20 mg capsule,delayed release(DR/EC) 20 mg PO PM benazepril 40 mg tablet 0 mg PO QAM Hold Instructions: Provider's Order Patient Comments: Currently on hold, original directions: 40mg by mouth once daily. Family unsure of restart date - 02/17/25 aspirin 81 mg Tablet,Delayed Release (Dr/Ec) 81 mg PO QAM Qty: 30 0RF atorvastatin 40 mg tablet 40 mg PO HS docusate sodium 100 mg capsule 100 mg PO PM PRN (Reason: Constipation) turmeric 400 mg Capsule 400 mg PO QAM albuterol sulfate 2.5 mg /3 mL (0.083 %) solution for nebulization 2.5 mg continuous nebulization DIRECTED PRN (Reason: Shortness Of Breath Or Wheezing) diclofenac potassium 50 mg tablet 50 mg PO TID PRN (Reason: Pain) vitamin B complex Tablet 1 tab PO DAILY Incruse Ellipta 62.5 mcg/actuation Blister With Device 1 inh inhalation DAILY Qty: 30 0RF levothyroxine [Synthroid] 50 mcg Tablet 50 mcg PO DAILYBB Qty: 30 0RF nystatin [Klayesta] 100,000 unit/gram powder 1 applic TOPICAL BID PRN (Reason: fungal rash) Rx Instructions: under breast Centrum Adult 50 Plus 80 mcg Tablet,Chewable 1 tab PO DAILY albuterol sulfate 90 mcg/actuation HFA aerosol inhaler 2 puff INHALATION Q4H PRN (Reason: Shortness Of Breath Or Wheezing) ipratropium bromide 21 mcg (0.03 %) spray,non-aerosol 2 spray INTRANASAL BID bumetanide 0.5 mg tablet 0 mg PO AMPM Hold Instructions: Provider's Order Patient Comments: Currently on hold, original directions: 0.5mg by mouth twice daily. Family unsure of restart date - 02/17/25 metformin 500 mg tablet 1,000 mg PO BID Patient Comments: Originally written for 500mg twice daily. Per spouse, recently increased to 1000mg twice daily. Just using this prescription up before a new one is written. 02/17/25 Discontinued doxycycline hyclate 100 mg Capsule 100 mg PO BID Qty: 6 0RF amoxicillin-pot clavulanate 875-125 mg Tablet 1 tab PO BIDM Qty: 6 0RF Discharge Orders: Discharge Order (Routine); Ordered 03/09/25 Ordered By: Ynes Morrison Admission Data Admit Date/Time: 03/04/25 22:58 Attending Provider: Armando Brush Admit Provider: Veronica Butterfield Primary Care Provider: Rhona Canales Other Providers: Veronica Butterfield; [place],[facility]; Jay Harris Other Interventions: Discharge Summary Assessment (RN) Last Done: 03/09/25 12:39 Supervising Physician Co-Signing Physician Notes I personally examined the patient and verified all ray points of history and exam, discussed case, and agree with decision making with Dr Morrison Feeling okay. No new complaints. For return to [facility] today. Vitals noted, in general she is awake and alert pleasant no distress. HEENT normocephalic atraumatic mucous membranes moist. Breathing unlabored no accessory muscle use good effort. Skin without rashes pallor or icterus. Neuro without focal deficits. Sacral ulcer/deconditioning/weaknesscontinue current care. Safe for return to [facility]. Otherwise as above.
[2025-03-09 12:42] VITALS: BP 95/65; PULSE 96
--- NOTE | 2025-03-09 12:56 | Billing Data ---
Date of Service March 09, 2025 Coding Level of Care Code 05108 IN/OBS DISCH 30 MIN/LESS
[2025-03-09] MEDS: DICLOFENAC SODIUM 25 MG TABDR PO PRN (13:33)
== END 2025-03-09 15:46 | DRG 871 ==
LOC: ED 19:31 → 2S 22:58 → SUATTDRO 22:58 → INTOOBSV 22:58 → 2S 23:28